=== PATIENT | female | born 1950 | race Caucasian/White ===

== ENCOUNTER → 2016-07-02 | Outpatient (CLI) | payer MEDICARE ==
[~2016-07-02] MED LIST: /AMLO25TA PO; /DIVA50TA PO; /LEVE75TA PO; /PANT40TA; /PANT40TA PO; /PRAV20TA PO; ALEN70TA39 PO; ATIV2TAB PO; ATOR1TAB19 PO; B COTAB3 PO; B-COMPLEX; CALC600T7 PO; CALCCHW12; CALCCHW19 PO; CENTTAB PO; CLOP75TA2 PO; COLA50CA3 PO; DEPA1TAB3 PO; DEPA250T3; DEPA500T; FLUT50SP; FLUTISP; FURO20TA2 PO; IBUP600T; KEPP1TAB2 PO; LEVO50TA5 PO; LIPI10TA; LIPI20TA PO; MECL-68 PO; Mycostatin TOP; NORV5TAB PO; NYAM10003 TOP; PRIL20CA; PROTPAK PO; RISP2TAB12; RISP3TAB16; RISP4TAB; RISP4TAB2 PO; RISP4TAB33 PO; SERO200T PO; SERT50TA2; SPECTROVITE; SYNT50TA; SYNT50TA PO; THERGRAN; TYLE650T30 PO; ZOLO50TA PO; [UNRECOGNIZED DRUG - OTHER] PO
--- NOTE | 2016-07-02 15:11 | REPMRS ---
Patient History The patient states she had a clinical breast exam in 06/2016. Patient is postmenopausal, has history of endometrial cancer at age 61, and is nulliparous. Family history of pancreatic cancer in mother. Digital Woman Screen Mammo: July 02, 2016 - Exam #: [id number] Bilateral CC and MLO view(s) were taken. Technologist: Lisa Hemphill Technologist Prior study comparison: May 02, 2015, digital woman screen mammo performed at [facility] to [facility]. December 18, 2013, digital woman screen mammo performed at [facility]. September 03, 2012, digital woman screen mammo performed at [facility] to [facility]. FINDINGS: There are scattered fibroglandular densities. There has been no change in the appearance of the mammogram from the prior studies. There is a mild amount of scattered fibroglandular density which is fairly symmetric. There is no interval development of dominant mass, architectural distortion, or clustered microcalcification suggestive of malignancy. ASSESSMENT: BI-RADS/ACR category 1 mammogram. Negative. Recommendation Routine screening mammogram in 1 year (for women over age 40). This mammogram was interpreted with the aid of an FDA-approved computer-aided dectection system. Electronically Signed By: Anand Poe MD 07/02/16 [id number]
--- NOTE | 2016-07-04 10:04 | DEXA ---
AP SPINE L1 - L4 0.936 -2.1 -1.4 LT FEMUR TOTAL 0.821 -1.5 -0.9 RT FEMUR TOTAL 0.928 -0.6 -0.1 TOTAL BODY TOTAL OTHER DUAL FEMUR FRAX* ASSESSMENT Risk factors: None. 10 year probability of fracture Major osteoporotic fracture 10.7 % Hip fracture 1.9 % COMMENTS: There is low bone density of the spine and hips. The density of the spine has decreased 5.2% since the initial exam on 2001. The spine density has decreased 6.7% since the most recent exam on 12/18/2013. The density of the left hip has decreased 5.6% since the initial exam on 2001. The density of the left hip has decreased 12.4% since the most recent exam on . The density of the right hip has decreased 3.4% since the initial exam on 2001. The density of the right hip has decreased 6.8% since the most recent exam on . FOLLOW-UP: Recommendation for the next bone density exam: 2 years. JAYSOND
== END ==
LOC: M WHC 13:00
PROVIDERS: ATTEND Nurse Practitioner Adult Health
DX: Z01.419 Encounter for gynecological examination (general) (routine) without abnormal findings (principal); Z12.31 Encounter for screening mammogram for malignant neoplasm of breast; Z13.820 Encounter for screening for osteoporosis; Z78.0 Asymptomatic menopausal state; Z12.12 Encounter for screening for malignant neoplasm of rectum; Z92.89 Personal history of other medical treatment; Z80.0 Family history of malignant neoplasm of digestive organs
CPT/HCPCS: 77080; 82270; 87624; G0101; G0123; G0202

== ENCOUNTER → 2016-07-02 | Outpatient (REF) | payer MEDICARE | LOC: M SFHCWAGY 13:58 | PROVIDERS: ATTEND Nurse Practitioner Family | DX: Z12.72 Encounter for screening for malignant neoplasm of vagina (principal); R87.620 Atypical squamous cells of undetermined significance on cytologic smear of vagina (ASC-US) | CPT/HCPCS: 87624; G0123 ==

== ENCOUNTER → 2017-01-08 | Outpatient (REF) | payer MEDICARE, MEDICAID | LOC: M SFHCWAGY 15:02 | PROVIDERS: ATTEND Nurse Practitioner Family | DX: Z12.72 Encounter for screening for malignant neoplasm of vagina (principal) | CPT/HCPCS: G0123; G0463 ==

== ENCOUNTER → 2017-03-07 | Outpatient (REF) | payer MEDICARE, MEDICAID | LOC: M LABNEURO 10:27 | PROVIDERS: ATTEND Physician Assistant Medical | DX: R56.9 Unspecified convulsions (principal); Z51.81 Encounter for therapeutic drug level monitoring; Z79.899 Other long term (current) drug therapy ==

== ENCOUNTER 2017-05-09 04:38 | Emergency (ER) | payer MEDICARE, MEDICAID ==
[~2017-05-09] VITALS: Ht 152.4 cm; Wt 95.5 kg
[2017-05-09] MEDS ORDERED: KETOROLAC 30 MG/ML VIAL (J1885) IV ONE (05:45)
[2017-05-09 06:34] LABS: BASO % 0.7 % (0.0-1.0); EOS # 0.1 10^3/uL (0.0-0.50); EOS % 1.2 % (0.0-3.0); IMMATURE GRANULOCYTE % 0.2 % (0-0); LYMPH # 1.4 10^3/uL (1.5-4.5); LYMPH % 33.8 % (24.0-44.0); MEAN CORPUSCULAR HEMOGLOBIN 30.6 pg (27.0-33.0); MEAN CORPUSCULAR HGB CONC 33.6 g/dl (32.0-36.5); MONO # 0.5 10^3/uL (0.0-0.8); MONO % 12.2 % (0.0-5.0); NEUTROPHILS # 2.2 10^3/uL (1.8-7.7); NEUTROPHILS % 51.9 % (36.0-66.0); PLATELET COUNT, AUTOMATED 173 10^3/uL (150-450); RED CELL DISTRIBUTION WIDTH 13.4 % (11.5-14.5); WHITE BLOOD COUNT 4.2 10^3/uL (4.0-10.0)
[2017-05-09 06:39] LABS: ALBUMIN 3.6 GM/DL (3.2-5.2); ALBUMIN/GLOBULIN RATIO 0.84 (1.00-1.93); ALKALINE PHOSPHATASE 63 U/L (45-117); ALT/SGPT 18 U/L (12-78); ANION GAP 8 MEQ/L (8-16); AST/SGOT 22 U/L (7-37); BILIRUBIN,DIRECT < 0.1 MG/DL (0.0-0.2); BILIRUBIN,TOTAL 0.3 MG/DL (0.2-1.0); BLOOD UREA NITROGEN 25 MG/DL (7-18); CALCIUM LEVEL 8.8 MG/DL (8.8-10.2); CARBON DIOXIDE LEVEL 32 MEQ/L (21-32); CHLORIDE LEVEL 101 MEQ/L (98-107); CREATININE FOR GFR 1.13 MG/DL (0.55-1.02); GLOMERULAR FILTRATION RATE 51.4 (>45); GLUCOSE, FASTING 82 MG/DL (80-110); POTASSIUM SERUM 3.8 MEQ/L (3.5-5.1); SODIUM LEVEL 141 MEQ/L (136-145); TOTAL PROTEIN 7.9 GM/DL (6.4-8.2)
[2017-05-09] MEDS ORDERED: ISOVUE-370 76% 100ML VIAL (Q9967) As Ordered ONE (08:09)
--- NOTE | 2017-05-09 09:00 | REP ---
CT of the abdomen pelvis with IV contrast, without bowel contrast: There are no comparisons. The visualized lung zimmer demonstrate fibrotic changes but are otherwise unremarkable. The hepatic parenchyma is homogeneous. There are several small gallbladder calculi. The gallbladder is otherwise unremarkable. The pancreas is normal size and unremarkable. The spleen is normal size and unremarkable. The adrenals are unremarkable. There is no hydronephrosis. There are no renal masses or cysts. The kidneys are otherwise unremarkable. No renal calculi. The abdominal aorta is unremarkable. There is no bowel distension or obstruction. The patient is a history of carcinoma and hysterectomy. There is no retroperitoneal or mesenteric adenopathy. There is no ascites. There is no evidence of tumor recurrence. Pelvis: There is no ascites or adenopathy. The pelvic bowel loops are unremarkable. The lumbar vertebral body heights and alignment are normal. There is intervertebral disc calcification at L1-2 and L4-5 compatible with degenerative disc disease. No lytic, blastic or destructive skeletal changes are identified. Impression: Cholelithiasis without acute cholecystitis. Lumbar degenerative disc disease as described. Hysterectomy. No evidence of tumor recurrence, adenopathy or ascites. Signed by Mamadou aCrd MD 05/09/2017 08:52 A
[2017-05-09 10:25] VITALS: BP 109/52
== END 2017-05-09 10:37 | disposition home or self-care (01) ==
LOC: M ED 04:38 → EDBD 04:38 → M ED 10:37
DX: K80.20 Calculus of gallbladder without cholecystitis without obstruction (principal); I10 Essential (primary) hypertension; K21.9 Gastro-esophageal reflux disease without esophagitis; F25.9 Schizoaffective disorder, unspecified; Z79.899 Other long term (current) drug therapy; Z88.2 Allergy status to sulfonamides; Z88.8 Allergy status to other drugs, medicaments and biological substances
CPT/HCPCS: 74177; 80048; 80076; 81001; 83690; 85025; 87040; 93041; 96374; 99284; J1885; Q9967

== ENCOUNTER → 2017-08-07 | Outpatient (REF) | payer MEDICARE, MEDICAID ==
[2017-08-11 00:09] LABS: LEVETIRACETAM (KEPPRA) 31.3 ug/mL (10.0-40.0)
== END ==
LOC: M LABNEURO 13:24
DX: R56.9 Unspecified convulsions (principal)
CPT/HCPCS: 36415

== ENCOUNTER → 2018-08-20 | Outpatient (REF) | payer MEDICARE, MEDICAID ==
[~2018-08-20] MED LIST changes: -ALEN70TA39 PO; +ALEN70TA57 PO
== END ==
LOC: M LABNEURO 13:50
PROVIDERS: ATTEND Physician Assistant Medical
DX: G40.89 Other seizures (principal)

== ENCOUNTER → 2019-01-16 | Outpatient (REF) | payer MEDICARE, MEDICAID ==
[~2019-01-16] MED LIST changes: -/AMLO25TA PO; -/DIVA50TA PO; -/LEVE75TA PO; -/PANT40TA; -/PANT40TA PO; -/PRAV20TA PO; +ACET-897 PO; -ALEN70TA57 PO; +ALEN70TA74 PO; +BENZ0.5T23 PO; +CALC500T44 PO; +CETI10TA4 PO; +DIVA500T9 PO; +FLUT1SPR2; -FLUTISP; +LEVA750T7 PO; +LEVE500T5 PO; +NORV2TAB PO; +POTA10CA32 PO; +PRAV1TAB39 PO; +PROT1TAB2; +PROT1TAB2 PO; +SERT-155 PO; +SYNT100T PO; +VITMTA PO
== END ==
LOC: M SFHCWAGY 14:48
PROVIDERS: ATTEND Nurse Practitioner Family
DX: Z12.4 Encounter for screening for malignant neoplasm of cervix (principal)

== ENCOUNTER → 2019-01-16 | Outpatient (CLI) | payer MEDICARE, MEDICAID ==
--- NOTE | 2019-01-16 15:27 | REPMRS ---
Patient History The patient states she had a clinical breast exam in 12/2018. Patient is postmenopausal, has history of endometrial cancer at age 61, and is nulliparous. Family history of pancreatic cancer in mother. No Hormone Replacement Therapy 3D TOMOSYNTHESIS WAS PERFORMED. The [facility] lifetime risk for breast cancer is 8.0%. Digital Woman Screen Mammo: January 16, 2019 - Exam #: [id number] Bilateral CC and MLO view(s) were taken. Technologist: Kimberley Covington, Technologist Prior study comparison: July 02, 2016, digital woman screen mammo performed at [facility]. May 02, 2015, digital woman screen mammo performed at [facility]. FINDINGS: There are scattered fibroglandular densities. There has been no change in the appearance of the mammogram from the prior studies. There is a mild amount of residual fibroglandular tissue which is fairly symmetric. There is no interval development of dominant mass, architectural distortion, or clustered microcalcification suggestive of malignancy. Assessment: BI-RADS/ACR category 1 mammogram. Negative Mammogram. Recommendation Routine screening mammogram in 1 year (for women over age 40). This mammogram was interpreted with the aid of an FDA-approved computer-aided dectection system. Electronically Signed By: Mamadou Jett MD 01/16/19 2211
== END ==
LOC: M WHC 13:54
PROVIDERS: ATTEND Nurse Practitioner Family
DX: Z01.419 Encounter for gynecological examination (general) (routine) without abnormal findings (principal); Z12.31 Encounter for screening mammogram for malignant neoplasm of breast; Z78.0 Asymptomatic menopausal state; Z85.40 Personal history of malignant neoplasm of unspecified female genital organ; Z80.0 Family history of malignant neoplasm of digestive organs; Z12.12 Encounter for screening for malignant neoplasm of rectum
CPT/HCPCS: 77063; 77067; 82270; G0101; G0123

== ENCOUNTER 2019-01-21 22:05 | Inpatient (IN) | payer MEDICARE, MEDICAID ==
[~2019-01-21] VITALS: Ht 152.4 cm; Wt 91.5 kg
[~2019-01-21 22:05] MED LIST changes: -ACET-897 PO; -BENZ0.5T23 PO; -CALC500T44 PO; -CETI10TA4 PO; -DIVA500T9 PO; -LEVA750T7 PO; -LEVE500T5 PO; -POTA10CA32 PO; -SERT-155 PO; -SYNT100T PO; -VITMTA PO
[2019-01-21] MEDS ORDERED: NS 1,000 ML IV ONE (22:30)
[2019-01-21] MEDS ORDERED: ACETAMINOPHEN 325 MG TAB PO ONE (22:30)
[2019-01-21 22:31] LABS: BASO % 0.4 % (0.0-1.0); HEMATOCRIT 40.9 % (36.0-47.0); HEMOGLOBIN 13.7 g/dl (12.0-15.5); LYMPH # 0.3 10^3/uL (1.5-4.5); LYMPH % 3.2 % (24.0-44.0); MEAN CORPUSCULAR HEMOGLOBIN 30.6 pg (27.0-33.0); MEAN CORPUSCULAR HGB CONC 33.5 g/dl (32.0-36.5); MEAN CORPUSCULAR VOLUME 91.3 fl (80.0-96.0); NEUTROPHILS # 8.6 10^3/uL (1.8-7.7); NEUTROPHILS % 85.9 % (36.0-66.0); PLATELET COUNT, AUTOMATED 204 10^3/uL (150-450); RED BLOOD COUNT 4.48 10^6/uL (4.00-5.40)
[2019-01-21 22:53] LABS: ALBUMIN 3.5 GM/DL (3.2-5.2); BILIRUBIN,DIRECT 0.2 MG/DL (0.0-0.2); BILIRUBIN,TOTAL 0.5 MG/DL (0.2-1.0); CREATININE FOR GFR 1.79 MG/DL (0.55-1.30); GLOMERULAR FILTRATION RATE 30.1 (>45); POTASSIUM SERUM 3.4 MEQ/L (3.5-5.1); TOTAL PROTEIN 8.3 GM/DL (6.4-8.2)
[2019-01-21] MEDS ORDERED: CIPROFLOXACIN 400 MG in APPROPRIATE DILUENT 1 EA IV ONE (23:15)
[2019-01-22] MEDS ORDERED: CALC500T44 PO (00:04)
[2019-01-22] MEDS ORDERED: SERT-155 PO (00:04)
[2019-01-22] MEDS ORDERED: LEVE500T5 PO (00:04)
[2019-01-22] MEDS ORDERED: DIVA500T9 PO (00:04)
[2019-01-22] MEDS ORDERED: VITMTA PO (00:04)
[2019-01-22] MEDS ORDERED: ACET-897 PO (00:04)
[2019-01-22] MEDS ORDERED: BENZ0.5T23 PO (00:04)
[2019-01-22] MEDS ORDERED: MECL-68 PO (00:04)
[2019-01-22] MEDS ORDERED: POTA10CA32 PO (00:04)
[2019-01-22] MEDS ORDERED: SYNT100T PO (00:04)
[2019-01-22] MEDS ORDERED: PROT1TAB2 PO (00:04)
[2019-01-22] MEDS ORDERED: CETI10TA4 PO (00:04)
[2019-01-22] MEDS ORDERED: KCL 40MEQ in NS 1000ML 1,000 ML IV SCH (00:30)
[2019-01-22] MEDS ORDERED: ACETAMINOPHEN 500 MG TAB PO PRN (00:30)
--- NOTE | 2019-01-22 00:42 | HPEPDOC ---
General Date of Admission 01/21/19 Date of Service: Jan 21, 2019 Chief Complaint The patient is a 68-year-old female admitted with a reason for visit of General Medical Complaint. Source: Patient, RN/MD, Old records Exam Limitations: No limitations Severity: Moderate History of Present Illness 68 year old female called the ambulance by pressing her life alert for lift assist. She was found half out of bed was diaphoretic and warm to touch by EMS but her recorded temp was 97.5. She complained of extreme generalized weakness and dizziness for 3 to 4 days, poor appetite, subjective fevers with feeling hot and shaking intermittently. She also complained of urinary incontinence however this is not new it happens on and off has been worse last few days along with frequency of urination. She denied any dysuria. On presentation to ED she oshea a rectal temp of 103.5. her Ua was dirty with 51 WBCs, 2+ LE. Her creatinine was elevated from baseline of 1.13 to 1.79. Her lactate was elevated to 2.3. She was admitted for UTI and lucio on ckd stage 3 Home Medications Scheduled Amlodipine Besylate (Norvasc) 5 Mg Tab, 5 MG PO DAILY, (Reported) Atorvastatin Calcium (Atorvastatin Calcium) 10 Mg Tab, 10 MG PO DAILY, (Reported) Benztropine Mesylate (Benztropine Mesylate) 0.5 Mg Tablet, 0.5 MG PO DAILY, (Reported) Calcium Carbonate/Vitamin D3 (Calcium 500-Vit D3 200 Tablet) 1 Each Tablet, 1 TAB PO DAILY, (Reported) Cetirizine HCl (Cetirizine HCl) 10 Mg Tablet, 10 MG PO QHS, (Reported) Divalproex Sodium (Divalproex Sodium ER) 500 Mg Tab.er.24h, 1,000 MG PO DAILY, (Reported) Furosemide (Furosemide) 20 Mg Tab, 20 MG PO BID, (Reported) TAKES IN MORNING AND AT NOON Levothyroxine Sodium (Synthroid) 100 Mcg Tablet, 100 MCG PO DAILY, (Reported) TAKES AT 0300 Multivitamins (Thera M Plus Tablet) 1 Each Tablet, 1 TAB PO DAILY, (Reported) Pantoprazole Sodium (Protonix) 40 Mg Tablet.dr, 40 MG PO DAILY, (Reported) Potassium Chloride (Potassium Chloride) 10 Meq Capsule.er, 10 MEQ PO DAILY, (Reported) Risperidone (Risperidone) 4 Mg Tab, 4 MG PO QHS, (Reported) Sertraline HCl (Sertraline HCl) 50 Mg Tablet, 50 MG PO DAILY, (Reported) levETIRAcetam (levETIRAcetam) 500 Mg Tablet, 500 MG PO BID, (Reported) Scheduled PRN Acetaminophen (Tylenol Extra Strength) 500 Mg Tablet, 500 MG PO BID PRN for PAIN, (Reported) Meclizine HCl (Meclizine HCl) 25 Mg Tablet, 25 MG PO TID PRN for DIZZINESS, (Reported) Allergies Coded Allergies: Sulfa (Sulfonamide Antibiotics) (Verified Allergy, Unknown, 01/21/19) aspirin (Verified Allergy, Unknown, 01/21/19) Past Medical History Medical History Morbid Obesity Schizoaffective disorder HYPERTENSION POST-TRAUMATIC STRESS DISORDER HYPOTHYROIDISM HYPERLIPIDEMIA ADENOCARCINOMA ENDOMETRIUM, GRADE I, 2010 SEIZURE DISORDER URINARY INCONTINENCE PEPTIC ULCER DISEASE DUODENAL ULCER AND GASTRIC ULCER. Surgical History THUMB SURGERY S/P laparotoy for GASTRIC ULCER perforation 1989 KESHAWN/BSO FOR ENDOMETRIAL CANCER ([facility]) 2010 EMB/ECC WITH DR. GONZALEZ 2009 COLONOSCOPY 2002 CLEFT PALATE REPAIR AGE 1 1/2 Family History MATERNAL AUNT: , PANCREAS CANCER PT IS NOT A RELIABLE HISTORIAN AND CANNOT GIVE ANY FURTHER FAMILY HISTORY.PT WAS ADOPTED BY MATERNAL AUNT. Social History * Smoker: non-smoker Alcohol: Denies Drugs: denies A-FIB/CHADSVASC A-FIB History Current/History of A-Fib/PAF?: No Review of Systems Constitutional: Reports: Chills, Fever, Malaise, Weakness, Fatigue Eyes: Denies: Pain, Vision change ENT: Denies: Head Aches, Ear Pain, Dysphagia Skin: Denies: Rash, Lesions, Breakdown Pulmonary: Denies: Dyspnea, Cough Cardiovascular: Denies: Chest Pain, Palpitations, Orthopnea, Paroxysmal Noc. Dyspnea, Lt Headedness Gastrointestinal: Denies: Nausea, Vomiting, Abdominal Pain, Diarrhea Genitourinary: Reports: Frequency, Incontinence Hematologic: Denies: Bruising, Bleeding Excessively Musculoskeletal: Denies: Neck Pain, Back Pain, Joint Pain, Muscle Pain, Spasms Neurological: Reports: Weakness Physical Examination General Exam: Positive: Alert, Cooperative, No Acute Distress Eye Exam: Positive: PERRLA, Conjunctiva & lids normal, EOMI; Negative: Sclera icteric ENT Exam: Positive: Atraumatic, Mucous membr. moist/pink, Pharynx Normal Chest Exam: Positive: Clear to auscultation, Normal air movement Heart Exam: Positive: Tachycardic, Regular Rhythm; Negative: Normal S1, Normal S2, Gallops, Murmurs Abdomen Exam: Positive: Normal bowel sounds, Soft, Tenderness (in the hypogastrium); Negative: Hepatospenomegaly Extremity Exam: Positive: Normal pulses; Negative: Clubbing, Cyanosis, Edema Skin Exam: Positive: Nl turgor and temperature; Negative: Breakdown, Lesion Psych Exam: Positive: Mental status NL, Mood NL, Oriented x 3 Vital Signs Vital Signs Date Time Temp Pulse Resp B/P (MAP) Pulse Ox O2 Delivery O2 Flow Rate FiO2 01/21/19 23:21 101.2 01/21/19 23:05 89 20 97 Nasal Cannula 2.0 01/21/19 23:00 103/52 (69) Laboratory Data Labs 24H Laboratory Tests 2 01/21/19 22:20: Immature Granulocyte % (Auto) 0.5, White Blood Count 10.0, Red Blood Count 4.48, Hemoglobin 13.7, Hematocrit 40.9, Mean Corpuscular Volume 91.3, Mean Corpuscular Hemoglobin 30.6, Mean Corpuscular Hemoglobin Concent 33.5, Red Cell Distribution Width 14.2, Platelet Count 204, Neutrophils (%) (Auto) 85.9H, Lymphocytes (%) (Auto) 3.2L, Monocytes (%) (Auto) 10.0H, Eosinophils (%) (Auto) 0.0, Basophils (%) (Auto) 0.4, Neutrophils # (Auto) 8.6H, Lymphocytes # (Auto) 0.3L, Monocytes # (Auto) 1.0H, Eosinophils # (Auto) 0.0, Basophils # (Auto) 0.0, Nucleated Red Blood Cells % (auto) 0.0, Anion Gap 9, Glomerular Filtration Rate 30.1L, Lactic Acid Level 2.3*H, Calcium Level 9.0, Aspartate Amino Transf (AST/SGOT) 26, Ala nine Aminotransferase (ALT/SGPT) 18, Alkaline Phosphatase 84, Total Bilirubin 0.5, Direct Bilirubin 0.2, Total Protein 8.3H, Albumin 3.5, Albumin/Globulin Ratio 0.73L 01/21/19 22:44: Urine Color YELLOW, Urine Appearance CLEAR, Urine pH 6.0, Urine Specific [place] 1.008, Urine Protein 3+H, Urine Glucose (UA) NEGATIVE, Urine Ketones NEGATIVE, Urine Blood 2+H, Urine Nitrite NEGATIVE, Urine Bilirubin NEGATIVE, Urine Urobilinogen 0.2, Urine Leukocyte Esterase 2+H, Urine WBC (Auto) 51H, Urine RBC (Auto) 9H, Urine Hyaline Casts (Auto) 0, Urine Bacteria (Auto) 1+H, Urine Squamous Epithelial Cells 0, Urine Mucus (Auto) SMALL, Urine Sperm (Auto) CBC/BMP Laboratory Tests 01/21/19 22:20 Red Blood Count 4.48, Mean Corpuscular Volume 91.3, Mean Corpuscular Hemoglobin 30.6, Mean Corpuscular Hemoglobin Concent 33.5, Red Cell Distribution Width 14.2, Neutrophils (%) (Auto) 85.9 H, Lymphocytes (%) (Auto) 3.2 L, Monocytes (%) (Auto) 10.0 H, Eosinophils (%) (Auto) 0.0, Basophils (%) (Auto) 0.4, Neutrophils # (Auto) 8.6 H, Lymphocytes # (Auto) 0.3 L, Monocytes # (Auto) 1.0 H, Eosinophils # (Auto) 0.0, Basophils # (Auto) 0.0 Microbiology Microbiology 01/21/19 Blood Culture, Received Pending 01/21/19 Urine Culture, Received Pending Assessment/Plan 68 year old female called the ambulance by pressing her life alert for lift assist. She was found half out of bed was diaphoretic and warm to touch by EMS but her recorded temp was 97.5. She complained of extreme generalized weakness and dizziness for 3 to 4 days with urinary incontinence and frequency. Her creatinine was elevated from baseline of 1.13 to 1.79. Her lactate was elevated to 2.3. She was admitted for UTI and lucio on ckd stage 3 UTI will give ceftriaxone urine culture and blood culture sent LUCIO on CKD possibly due to infection will get renal and bladder US to rule out obstruction will give IVF. Hypertension BP low normal continue amlodipine with hold parameters will hold lasix for now Hyperlipidemia continue statin hypothyroid continue Synthroid Seizure disorder continue keppra and valproate Morbid Obesity Schizoaffective disorder/PTSD continue benztropine, risperidal, seroquel, Peptic ulcer disease continue PPI Plan / VTE VTE Prophylaxis Ordered?: Yes NATHAN BROOKE MD Jan 21, 2019 23:34
[2019-01-22] MEDS: cefTRIAXone SOD 1 GM in D5W MINI-BAG PLUS 50 ML IV SCH (01:34)
[2019-01-22 03:05] LABS: BASO % 0.4 % (0.0-1.0); HEMATOCRIT 35.5 % (36.0-47.0); HEMOGLOBIN 11.9 g/dl (12.0-15.5); LYMPH # 0.3 10^3/uL (1.5-4.5); LYMPH % 3.2 % (24.0-44.0); MEAN CORPUSCULAR HGB CONC 33.5 g/dl (32.0-36.5); MEAN CORPUSCULAR VOLUME 92.4 fl (80.0-96.0); MONO # 0.6 10^3/uL (0.0-0.8); MONO % 5.3 % (0.0-5.0); NEUTROPHILS # 9.3 10^3/uL (1.8-7.7); NEUTROPHILS % 90.5 % (36.0-66.0); PLATELET COUNT, AUTOMATED 179 10^3/uL (150-450); RED BLOOD COUNT 3.84 10^6/uL (4.00-5.40); WHITE BLOOD COUNT 10.3 10^3/uL (4.0-10.0)
[2019-01-22 03:27] LABS: CREATININE FOR GFR 1.6 MG/DL (0.55-1.30); GLOMERULAR FILTRATION RATE 34.2 (>45); POTASSIUM SERUM 3.6 MEQ/L (3.5-5.1); VALPROIC ACID (DEPAKOTE) 59.3 UG/ML (50.0-100.0)
[2019-01-22 04:30] VITALS: BP 143/69
[2019-01-22] MEDS: LEVOTHYROXINE 100MCG TABLET (0.1MG) PO SCH (06:16)
--- NOTE | 2019-01-22 07:22 | REP ---
Clinical: Systemic inflammatory response syndrome . Comparison: 05/20/2014 . Findings: The mediastinum and cardiac silhouette are stable and within normal limits for portable technique. The lung zimmer are clear without acute consolidation, effusion, or pneumothorax. Skeletal structures are intact. Impression: No acute cardiopulmonary process appreciated. Electronically Signed by Nimesh Lu MD 01/22/2019 07:12 A
--- NOTE | 2019-01-22 08:31 | REP ---
Renal ultrasound: Comparison is 05/28/2012. The kidneys are in the low normal size range. The right kidney measures 9.8 x 4.6 x 3.9 cm. The left kidney measures 9.8 x 4.6 x 4.1 cm. Renal cortical echogenicity is normal bilaterally. There is no hydronephrosis on the right on the left. There are no renal calculi. There are no solid or cystic renal masses. Impression: The kidneys are in the low normal size range. Otherwise, negative renal ultrasound Electronically Signed by Mamadou Card MD 01/22/2019 08:23 A
--- NOTE | 2019-01-22 08:33 | REP ---
Ultrasound: With color Doppler ultrasound. There are bilateral ureteral jets. The pre void bladder volume is 659 ml. The patient is unable to void and spot tenting several times. Therefore postvoid residual cannot be determined. No bladder wall polyps or masses are identified. Electronically Signed by Mamadou Card MD 01/22/2019 08:25 A
[2019-01-22] MEDS: PANTOPRAZOLE 40MG TAB (PROTONIX) PO SCH (09:10)
[2019-01-22] MEDS: levETIRAcetam 250MG TABLET (KEPPRA) PO SCH ×2 (09:10→20:35)
[2019-01-22] MEDS: SERTRALINE HCL 50 MG TAB PO SCH (09:10)
[2019-01-22] MEDS: amLODIPine 5 MG TAB PO SCH (09:10)
[2019-01-22] MEDS: ATORVASTATIN 10 MG TAB PO SCH (09:11)
[2019-01-22] MEDS: BENZTROPINE 0.5 MG TAB PO SCH (09:11)
[2019-01-22] MEDS: DIVALPROEX 500MG *ER* TAB PO SCH (09:11)
[2019-01-22] MEDS ORDERED: DILUENT IV ONE (10:45)
[2019-01-22] MEDS ORDERED: NS IV ONE (10:45)
[2019-01-22] MEDS: HEPARIN SOD (PORCINE) 5000 UNITS/ML VIAL SC SCH ×2 (11:01→20:34)
--- NOTE | 2019-01-22 12:16 | IPNPDOC ---
Text Note Date of Service The patient was seen on 01/22/19. NOTE S: patient had episode of rigor/chills and low grade temp this AM. Still with dysuria, no N, no V, no back pain, no SHULTZ O: Vitals as below General: pleasant , mild distress, AAOx3 HRRR with murmur LCTA no W/R/R Abdomen soft NT ND NABS, no CVA tenderness Ext: no edema; right hallux laterally with bruising (pateint states kicked cat litter box and injured toe last week) A/P: UTI with possible sepsis (hypotension, fever, lactic acid IV ceftriaxone, IV fluid sepsis protocol, urine culture and blood culture sent LUCIO on CKD - slight improving probably due to infection renal and bladder US negative Continue IVF lactic acidosis - suspected sepsis but may also be medication related. IVF per sepsis protocol and repeat lactate level in 6 hours Hold respiradol if temp greater than 100 to avoid neuroleptic malignant syndrome Hypertension with hypotension - intial hypotension resolved. continue with amlodipine , hold lasix. Heart murmur - pateint states present since age 11 - will check cardiac echo to r/o vegitations inlight of fever, sepsis Hyperlipidemia continue statin hypothyroid continue synthroid Seizure disorder continue keppra and valproate; seizure precautions Schizoaffective disorder/PTSD - continue benztropine, risperidal, seroquel, history of PUD - continue PPI VS,Fishbone, I+O VS, Fishbone, I+O Laboratory Tests 01/21/19 22:20 Red Blood Count 4.48, Mean Corpuscular Volume 91.3, Mean Corpuscular Hemoglobin 30.6, Mean Corpuscular Hemoglobin Concent 33.5, Red Cell Distribution Width 14.2, Neutrophils (%) (Auto) 85.9 H, Lymphocytes (%) (Auto) 3.2 L, Monocytes (%) (Auto) 10.0 H, Eosinophils (%) (Auto) 0.0, Basophils (%) (Auto) 0.4, Neutrophils # (Auto) 8.6 H, Lymphocytes # (Auto) 0.3 L, Monocytes # (Auto) 1.0 H, Eosinophils # (Auto) 0.0, Basophils # (Auto) 0.0 01/22/19 02:58 Red Blood Count 3.84 L, Mean Corpuscular Volume 92.4, Mean Corpuscular Hemogl obin 31.0, Mean Corpuscular Hemoglobin Concent 33.5, Red Cell Distribution Width 14.2, Neutrophils (%) (Auto) 90.5 H, Lymphocytes (%) (Auto) 3.2 L, Monocytes (%) (Auto) 5.3 H, Eosinophils (%) (Auto) 0.0, Basophils (%) (Auto) 0.4, Neutrophils # (Auto) 9.3 H, Lymphocytes # (Auto) 0.3 L, Monocytes # (Auto) 0.6, Eosinophils # (Auto) 0.0, Basophils # (Auto) 0.0, Calcium Level 8.0 L Vital Signs Date Time Temp Pulse Resp B/P (MAP) Pulse Ox O2 Delivery O2 Flow Rate FiO2 01/22/19 09:10 82 143/69 01/22/19 04:30 97.1 20 92 01/22/19 03:15 Nasal Cannula 2.0 I&O- Last 24 Hours up to 6 AM 01/22/19 06:00 Intake Total 1707.5 ml Output Total 0 ml Balance 1707.5 ml BLANCA LOPEZ DO Jan 22, 2019 12:16
[2019-01-22] MEDS: NS 1,000 ML IV SCH ×2 (13:00→20:35)
[2019-01-22 14:00] VITALS: BP 134/57
[2019-01-22] MEDS: risperiDONE 2 MG TAB PO SCH (20:35)
--- NOTE | 2019-01-22 21:18 | ECGEPIP ---
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
[2019-01-22 21:38] VITALS: BP 134/59
[2019-01-23] MEDS: cefTRIAXone SOD 1 GM in D5W MINI-BAG PLUS 50 ML IV SCH (02:01)
[2019-01-23] MEDS: NS 1,000 ML IV SCH ×3 (04:00→20:00)
[2019-01-23] MEDS: LEVOTHYROXINE 100MCG TABLET (0.1MG) PO SCH (05:44)
[2019-01-23 06:07] LABS: BASO % 0.4 % (0.0-1.0); EOS % 0.3 % (0.0-3.0); HEMATOCRIT 31.4 % (36.0-47.0); HEMOGLOBIN 10.2 g/dl (12.0-15.5); LYMPH # 0.8 10^3/uL (1.5-4.5); LYMPH % 10.6 % (24.0-44.0); MEAN CORPUSCULAR HEMOGLOBIN 30.9 pg (27.0-33.0); MEAN CORPUSCULAR HGB CONC 32.5 g/dl (32.0-36.5); MEAN CORPUSCULAR VOLUME 95.2 fl (80.0-96.0); MONO # 0.9 10^3/uL (0.0-0.8); MONO % 13.2 % (0.0-5.0); NEUTROPHILS # 5.4 10^3/uL (1.8-7.7); NEUTROPHILS % 74.9 % (36.0-66.0); WHITE BLOOD COUNT 7.1 10^3/uL (4.0-10.0)
[2019-01-23 06:10] VITALS: BP 122/56
[2019-01-23 06:21] LABS: CALCIUM LEVEL 7.3 MG/DL (8.8-10.2); CREATININE FOR GFR 1.07 MG/DL (0.55-1.30); GLOMERULAR FILTRATION RATE 54.5 (>45); POTASSIUM SERUM 3.7 MEQ/L (3.5-5.1)
[2019-01-23 09:06] LABS: PLTBLUE- EDTA FREE CALC 135 K/mm3 (172-450)
[2019-01-23 09:27] LABS: PLTBLUE- EDTA FREE MACHINE 123 10^3/uL (172-450)
[2019-01-23] MEDS: levETIRAcetam 250MG TABLET (KEPPRA) PO SCH ×2 (09:33→20:58)
[2019-01-23] MEDS: ATORVASTATIN 10 MG TAB PO SCH (09:33)
[2019-01-23] MEDS: HEPARIN SOD (PORCINE) 5000 UNITS/ML VIAL SC SCH ×2 (09:33→20:58)
[2019-01-23] MEDS: BENZTROPINE 0.5 MG TAB PO SCH (09:34)
[2019-01-23] MEDS: SERTRALINE HCL 50 MG TAB PO SCH (09:34)
[2019-01-23] MEDS: PANTOPRAZOLE 40MG TAB (PROTONIX) PO SCH (09:34)
[2019-01-23] MEDS: amLODIPine 5 MG TAB PO SCH (09:34)
[2019-01-23] MEDS: DIVALPROEX 500MG *ER* TAB PO SCH (11:01)
[2019-01-23 14:00] VITALS: BP 139/68
--- NOTE | 2019-01-23 15:04 | IPNPDOC ---
Text Note Date of Service The patient was seen on 01/23/19. NOTE S: patient with fever spikes during night and this AM. Echo pending this AM. States feels better today. no further dysuria, urgency . no chills or rigors. good appetite. O: Vital as below General: pleasant NAD AAOx3 HRRR with murmur, no rub, no S3/no S4 LCTA - no CVA tenderness Abdomen soft nt nd nabs ext no edema A/P: Gram Neg Brigido bacteremia - on rocephin, echo pending. suspected source is UTI; completed IV fluid sepsis bolus. Will finish current IVF bag and saline lock. use PRN fluid bolus if hypotension from bacteremia Sepsis with lactic acidosis from UTI - improved. LUCIO due to hypotension, sepsis - resolved with IVF. Hypertension with hypotension - intial hypotension resolved from sepsis. continue with amlodipine , hold lasix. Heart murmur - pateint states present since age 11 - will check cardiac echo to r/o vegetations in light of fever, sepsis Hyperlipidemia continue statin hypothyroid continue synthroid Seizure disorder continue keppra and valproate; seizure precautions Schizoaffective disorder/PTSD - continue benztropine, risperidal, seroquel, ; hold risperidal with fevers. history of PUD - continue PPI Case management consulted - patient concerned about not being home to pay/send in her rent on 01/25 . VS,Fishbone, I+O VS, Fishbone, I+O Laboratory Tests 01/23/19 05:39 Red Blood Count 3.30 L, Mean Corpuscular Volume 95.2, Mean Corpuscular Hemoglobin 30.9, Mean Corpuscular Hemoglobin Concent 32.5, Red Cell Distribution Width 14.6 H, Neutrophils (%) (Auto) 74.9 H, Lymphocytes (%) (Auto) 10.6 L, Monocytes (%) (Auto) 13.2 H, Eosinophils (%) (Auto) 0.3, Basophils (%) (Auto) 0.4, Neutrophils # (Auto) 5.4, Lymphocytes # (Auto) 0.8 L, Monocytes # (Auto) 0.9 H, Eosinophils # (Auto) 0.0, Basophils # (Auto) 0.0, Calcium Level 7.3 L Vital Signs Date Time Temp Pulse Resp B/P (MAP) Pulse Ox O2 Delivery O2 Flow Rate FiO2 01/23/19 06:56 100.8 01/23/19 06:10 87 18 122/56 (78) 94 01/22/19 03:15 Nasal Cannula 2.0 I&O- Last 24 Hours up to 6 AM 01/23/19 06:00 Intake Total 4300 ml Balance 4300 ml BLANCA LOPEZ DO Jan 23, 2019 07:46
--- NOTE | 2019-01-23 19:01 | ECHO ---
DATE OF PROCEDURE: 01/23/2019 DATE OF : 1950 AGE: 68 GENDER: Female HEIGHT: 60 inches WEIGHT: 202 pounds BODY SURFACE AREA: 1.82 meters squared INPATIENT: Moisés Ferro, Room 5137 REFERRING PHYSICIAN: Dr. Carol Segovia INDICATION: Murmur MEASUREMENTS: 2D Measurements: RV: 4.4 cm LV: 3.6 cm Septum: 0.9 cm Posterior wall: 0.9 cm Aortic root: 2.6 cm LA: 3.4 cm LVEF: 65% DOPPLER MEASUREMENTS: AV: 1.5 meters per second LVOT: 1.0 meters per second LVOT diameter: 1.6 cm MV-E: 96, A: 107, EA ratio: 0.9 Early mitral deceleration time: 194 milliseconds E prime: 9.1, A prime: 10.2, E/E prime ratio: 10.5 Pulmonary capillary wedge pressure: 13.6 mmHg PV: 0.9 meters per second Pulmonary artery acceleration time: 85 milliseconds RVSP: 57 mmHg IVC: 2.1 cm COMMENT: Normal sinus rhythm without intraventricular conduction disturbance. M-mode and two-dimensional echocardiography was performed with pulsed, continuous wave, color flow and tissue Doppler studies. Normal left ventricular size and wall thickness with localized proximal septal wall motion abnormality in keeping with RV pressure overload yet preserved global resting left ventricular systolic function. Normal left atrial size with Doppler evidence of an impairment of left ventricular (LV) diastolic function but current estimated mean left atrial pressure upper limits of normal. At least mildly dilated right heart chambers with slightly reduced right ventricular free wall motion and Doppler evidence of at least moderately severe pulmonary hypertension. Slightly dilated inferior vena cava with reduced respiratory collapse in keeping with an elevated central venous pressure. Mild aortic valvular sclerosis without stenosis or insufficiency. Mildly thickened mitral annulus with adequate leaflet excursion and no posterior systolic buckling and only very mild insufficiency. Normal appearing tricuspid valve with moderate insufficiency. Normal aortic root size. No apparent intracardiac mass or pericardial effusion. MTDD
[2019-01-23 20:08] VITALS: BP 140/68
[2019-01-24] MEDS: cefTRIAXone SOD 1 GM in D5W MINI-BAG PLUS 50 ML IV SCH (02:07)
[2019-01-24 05:51] LABS: BASO % 0.5 % (0.0-1.0); EOS % 0.5 % (0.0-3.0); HEMATOCRIT 30.6 % (36.0-47.0); HEMOGLOBIN 10.1 g/dl (12.0-15.5); LYMPH % 16.3 % (24.0-44.0); MEAN CORPUSCULAR VOLUME 90.8 fl (80.0-96.0); MONO % 15.6 % (0.0-5.0); NEUTROPHILS # 4.1 10^3/uL (1.8-7.7); NEUTROPHILS % 66.1 % (36.0-66.0); PLATELET COUNT, AUTOMATED 164 10^3/uL (150-450); RED BLOOD COUNT 3.37 10^6/uL (4.00-5.40); WHITE BLOOD COUNT 6.2 10^3/uL (4.0-10.0)
[2019-01-24] MEDS: LEVOTHYROXINE 100MCG TABLET (0.1MG) PO SCH (05:55)
[2019-01-24 06:11] LABS: CALCIUM LEVEL 8.2 MG/DL (8.8-10.2); CREATININE FOR GFR 1.03 MG/DL (0.55-1.30); GLOMERULAR FILTRATION RATE 56.9 (>45); POTASSIUM SERUM 3.6 MEQ/L (3.5-5.1)
[2019-01-24 06:34] VITALS: BP 101/60
[2019-01-24] MEDS: levETIRAcetam 250MG TABLET (KEPPRA) PO SCH ×2 (08:06→20:36)
[2019-01-24] MEDS: ATORVASTATIN 10 MG TAB PO SCH (08:06)
[2019-01-24] MEDS: SERTRALINE HCL 50 MG TAB PO SCH (08:06)
[2019-01-24] MEDS: HEPARIN SOD (PORCINE) 5000 UNITS/ML VIAL SC SCH ×2 (08:07→20:36)
[2019-01-24] MEDS: BENZTROPINE 0.5 MG TAB PO SCH (08:07)
[2019-01-24] MEDS: PANTOPRAZOLE 40MG TAB (PROTONIX) PO SCH (08:08)
[2019-01-24] MEDS: DIVALPROEX 500MG *ER* TAB PO SCH ×2 (08:08→09:00)
[2019-01-24] MEDS: amLODIPine 5 MG TAB PO SCH (08:11)
--- NOTE | 2019-01-24 09:04 | IPNPDOC ---
Text Note Date of Service The patient was seen on 01/24/19. NOTE S: patient continues to have low grade temperatures (100.1 this AM). States no more rigors, chills. no nausea, no vomiting. feels better. having difficulty swallowing large depakote ER pills. no dysuria/frequency. has been ambulating with staff O: Vitals as below General: pleasant NAD AAOx3, sitting in chair eating breakfast HRRR with murmur LCTA no W/R/R Echo with no signs vegetations A/P: E COLI UTI with bacteremia -will change rocephin to levaquin (q48 hours based on creat Clear) intially IV then when no longer febrile for 24 hours , then change to PO. Will need 7 days after last negative blood cultures (01/22/19) for antibiotic treatment. Sepsis with lactic acidosis from E Coli UTI and E Coli bacteremia - resolved. LUCIO due to hypotension, sepsis - resolved with IVF. Hypertension with hypotension - intial hypotension resolved from sepsis. continue with amlodipine , hold lasix. Hyperlipidemia continue statin hypothyroid continue synthroid Seizure disorder continue keppra and valproate; seizure precautions - change depakote ER to sprinkles Schizoaffective disorder/PTSD - continue benztropine, risperidal, seroquel, ; hold risperidal with fevers. history of PUD - continue PPI VS,Fishbone, I+O VS, Fishbone, I+O Laboratory Tests 01/24/19 05:26 Red Blood Count 3.37 L, Mean Corpuscular Volume 90.8, Mean Corpuscular Hemoglobin 30.0, Mean Corpuscular Hemoglobin Concent 33.0, Red Cell Distribution Width 14.7 H, Neutrophils (%) (Auto) 66.1 H, Lymphocytes (%) (Auto) 16.3 L, Monocytes (%) (Auto) 15.6 H, Eosinophils (%) (Auto) 0.5, Basophils (%) (Auto) 0.5, Neutrophils # (Auto) 4.1, Lymphocytes # (Auto) 1.0 L, Monocytes # (Auto) 1.0 H, Eosinophils # (Auto) 0.0, Basophils # (Auto) 0.0, Calcium Level 8.2 L Vital Signs Date Time Temp Pulse Resp B/P (MAP) Pulse Ox O2 Delivery O2 Flow Rate FiO2 01/24/19 06:34 100.1 83 18 101/60 (74) 89 01/22/19 03:15 Nasal Cannula 2.0 I&O- Last 24 Hours up to 6 AM 01/24/19 06:00 Intake Total 3080 ml Balance 3080 ml BLANCA LOPEZ DO Jan 24, 2019 07:58
[2019-01-24] MEDS ORDERED: LevoFLOXacin IV 750 MG in APPROPRIATE DILUENT 1 EA IV SCH (10:00)
[2019-01-24] MEDS: DIVALPROEX SPRINKLE 125 MG CAP PO SCH ×2 (11:00→20:37)
[2019-01-24 14:00] VITALS: BP 130/69
[2019-01-24] MEDS: risperiDONE 2 MG TAB PO SCH (20:53)
[2019-01-24 22:00] VITALS: BP 136/70
[2019-01-25 06:00] VITALS: BP 131/65
[2019-01-25] MEDS: LEVOTHYROXINE 100MCG TABLET (0.1MG) PO SCH (06:48)
[2019-01-25 07:21] LABS: BASO % 0.5 % (0.0-1.0); EOS # 0.1 10^3/uL (0.0-0.5); HEMATOCRIT 30.7 % (36.0-47.0); HEMOGLOBIN 10.1 g/dl (12.0-15.5); LYMPH # 1.3 10^3/uL (1.5-5.0); LYMPH % 21.2 % (24.0-44.0); MEAN CORPUSCULAR HEMOGLOBIN 30.1 pg (27.0-33.0); MEAN CORPUSCULAR HGB CONC 32.9 g/dl (32.0-36.5); MEAN CORPUSCULAR VOLUME 91.4 fl (80.0-96.0); NEUTROPHILS # 3.7 10^3/uL (1.5-8.5); NEUTROPHILS % 59.8 % (36.0-66.0); PLATELET COUNT, AUTOMATED 184 10^3/uL (150-450); RED BLOOD COUNT 3.36 10^6/uL (4.00-5.40); WHITE BLOOD COUNT 6.2 10^3/uL (4.0-10.0)
[2019-01-25 07:39] LABS: CALCIUM LEVEL 8.4 MG/DL (8.8-10.2); CREATININE FOR GFR 1.06 MG/DL (0.55-1.30); POTASSIUM SERUM 3.8 MEQ/L (3.5-5.1)
[2019-01-25] MEDS: DIVALPROEX SPRINKLE 125 MG CAP PO SCH ×2 (07:45→20:39)
[2019-01-25] MEDS: HEPARIN SOD (PORCINE) 5000 UNITS/ML VIAL SC SCH ×2 (07:45→20:40)
[2019-01-25] MEDS: PANTOPRAZOLE 40MG TAB (PROTONIX) PO SCH (07:46)
[2019-01-25] MEDS: risperiDONE 2 MG TAB PO SCH ×2 (07:46→20:39)
[2019-01-25] MEDS: ATORVASTATIN 10 MG TAB PO SCH (07:46)
[2019-01-25] MEDS: SERTRALINE HCL 50 MG TAB PO SCH (07:46)
[2019-01-25] MEDS: amLODIPine 5 MG TAB PO SCH (07:49)
[2019-01-25] MEDS: levETIRAcetam 250MG TABLET (KEPPRA) PO SCH ×2 (07:50→20:39)
[2019-01-25] MEDS: BENZTROPINE 0.5 MG TAB PO SCH (08:07)
--- NOTE | 2019-01-25 12:41 | IPNPDOC ---
Text Note Date of Service The patient was seen on 01/25/19. NOTE S: patient states feels good, no fever x 24 hours, no dysuria, no urgency, no back pain. good appetite, no rigors or chills. O: Vitals as below General: pleasant NAD AAOx3 HRRR LCTA no CVA tenderness Ext: no edema Abdomen soft NT ND NABS A/P: E COLI UTI with bacteremia - change to po levaquin 750mg q48 hours based on creat Clear. next dose due 01/26/19 at 0900. Will need 7 days after last negative blood cultures (01/22/19) for antibiotic treatment. possible d/c in AM Sepsis with lactic acidosis from E Coli UTI and E Coli bacteremia - resolved. LUCIO due to hypotension, sepsis - resolved with IVF. Hypertension with hypotension - intial hypotension resolved from sepsis. continue with amlodipine , hold lasix. Hyperlipidemia continue statin hypothyroid continue synthroid Seizure disorder continue keppra and valproate; seizure precautions - change depakote ER to sprinkles Schizoaffective disorder/PTSD - continue benztropine, risperidal, seroquel, ; history of PUD - continue PPI VS,Fishbone, I+O VS, Fishbone, I+O Laboratory Tests 01/25/19 06:40 Red Blood Count 3.36 L, Mean Corpuscular Volume 91.4, Mean Corpuscular Hemoglobin 30.1, Mean Corpuscular Hemoglobin Concent 32.9, Red Cell Distribution Width 14.9 H, Neutrophils (%) (Auto) 59.8, Lymphocytes (%) (Auto) 21.2 L, Monocytes (%) (Auto) 16.0 H, Eosinophils (%) (Auto) 1.0, Basophils (%) (Auto) 0.5, Neutrophils # (Auto) 3.7, Lymphocytes # (Auto) 1.3 L, Monocytes # (Auto) 1.0 H, Eosinophils # (Auto) 0.1, Basophils # (Auto) 0.0, Calcium Level 8.4 L Vital Signs Date Time Temp Pulse Resp B/P (MAP) Pulse Ox O2 Delivery O2 Flow Rate FiO2 01/25/19 07:49 77 140/68 01/25/19 06:00 99.2 22 93 01/22/19 03:15 Nasal Cannula 2.0 I&O- Last 24 Hours up to 6 AM 01/25/19 06:00 Intake Total 3410 ml Output Total 300 ml Balance 3110 ml BLANCA LOPEZ DO Jan 25, 2019 12:41
[2019-01-25] MEDS ORDERED: D5W 1,000 ML IV SCH (12:45)
[2019-01-25] MEDS ORDERED: LEVA750T7 PO (12:45)
[2019-01-25 14:00] VITALS: BP 135/66
[2019-01-25 22:00] VITALS: BP 136/65
[2019-01-26] MEDS: LEVOTHYROXINE 100MCG TABLET (0.1MG) PO SCH (05:55)
[2019-01-26 06:00] VITALS: BP 142/74
[2019-01-26] MEDS ORDERED: LevoFLOXacin 750 MG TABLET PO SCH (06:00)
[2019-01-26 07:09] LABS: CALCIUM LEVEL 8.1 MG/DL (8.8-10.2); CREATININE FOR GFR 1.03 MG/DL (0.55-1.30); GLOMERULAR FILTRATION RATE 56.9 (>45); POTASSIUM SERUM 4.1 MEQ/L (3.5-5.1)
[2019-01-26 08:23] VITALS: BP 142/74
[2019-01-26] MEDS: amLODIPine 5 MG TAB PO SCH (08:23)
[2019-01-26] MEDS: PANTOPRAZOLE 40MG TAB (PROTONIX) PO SCH (08:23)
[2019-01-26] MEDS: ATORVASTATIN 10 MG TAB PO SCH (08:23)
[2019-01-26] MEDS: BENZTROPINE 0.5 MG TAB PO SCH (08:23)
[2019-01-26] MEDS: DIVALPROEX SPRINKLE 125 MG CAP PO SCH (08:23)
[2019-01-26] MEDS: SERTRALINE HCL 50 MG TAB PO SCH (08:23)
[2019-01-26] MEDS: levETIRAcetam 250MG TABLET (KEPPRA) PO SCH (08:23)
[2019-01-26] MEDS: HEPARIN SOD (PORCINE) 5000 UNITS/ML VIAL SC SCH (08:24)
--- NOTE | 2019-01-26 12:58 | DS.PDOC ---
Discharge Summary General Date of Admission Jan 21, 2019 at 23:49 Date of Discharge 01/26/19 Primary Care Physician: Randolph Melendez MD Attending Physician: BLANCA LOPEZ DO Discharge Summary PROCEDURES PERFORMED DURING STAY: none ADMITTING DIAGNOSES: UTI LUCIO on CKD Hypertension Hyperlipidemia hypothyroid Seizure disorder Morbid Obesity Schizoaffective disorder/PTSD Peptic ulcer disease DISCHARGE DIAGNOSES: E COLI UTI with bacteremia Sepsis with lactic acidosis from E Coli UTI and E Coli bacteremia - resolved. LUCIO due to hypotension, sepsis Hypertension with hypotension Hyperlipidemia hypothyroid Seizure disorder Schizoaffective disorder/PTSD history of PUD COMPLICATIONS/CHIEF COMPLAINT: Lucio Superimposed On Ckd; Uti. HISTORY OF PRESENT ILLNESS: 68 year old female called the ambulance by pressing her life alert for lift assist. She was found half out of bed was diaphoretic and warm to touch by EMS but her recorded temp was 97.5. She complained of extreme generalized weakness and dizziness for 3 to 4 days with urinary incontinence and frequency. Her creatinine was elevated from baseline of 1.13 to 1.79. Her lactate was elevated to 2.3. She was admitted for UTI and lucio on ckd stage 3. See H&P for details HOSPITAL COURSE: Patient admitted, given IV sepsis fluid procotol and started on rocephin IV. Her lactate level improved. Blood culture and urine culture positive for E Coli. She was changed to po levaquin 750mg q48 hours based on creat Clear. She remained afebrile and is being discharged in stable and improved condition. Will need 7 days after last negative blood cultures (01/22/19) for antibiotic treatment. DISCHARGE MEDICATIONS: Please see below. ALLERGIES: Please see below. PHYSICAL EXAMINATION ON DISCHARGE: VITAL SIGNS: Please see below. GENERAL: pleasant NAD AAOx3 HRRR LCTA no W/R/R, no CVA tenderness LABORATORY DATA: Please see below. IMAGING: renal US and bladder US - negative PROGNOSIS: good ACTIVITY: as tolerated DIET: as tolerated DISCHARGE PLAN: discharge home with services DISPOSITION: home with home services DISCHARGE INSTRUCTIONS: 1. Drink 8 ounce extra fluid daily for hydration 2. do not take furosemide or potassium until 01/30/19, then okay to restart furosemide 20mg ONCE A DAY and potassium chloride 10meq ONCE A DAY. 3. Levaquin for 1 week (750mg every 24 hours based on creat clearance - dose given in hospital 01/26, next doses due 01/28,01/30,02/01 and completed treatement) 4. Follow up with PCP in 5-7 days for recheck of E Coli bacteremia, E Coli UTI and dehydration (with mild hypernatremia) ITEMS TO FOLLOWUP ON ON OUTPATIENT: 1. BMP in 1 week thru PCP office DISCHARGE CONDITION: stable TIME SPENT ON DISCHARGE: 30 minutes. Vital Signs/I&Os Vital Signs Date Time Temp Pulse Resp B/P (MAP) Pulse Ox O2 Delivery O2 Flow Rate FiO2 01/25/19 22:00 98.2 77 20 136/65 (88) 93 01/22/19 03:15 Nasal Cannula 2.0 I&O- Last 24 Hours up to 6 AM 01/26/19 05:59 Intake Total 3280 ml Output Total 1400 ml Balance 1880 ml Laboratory Data Labs 24H Laboratory Tests 2 01/26/19 06:38: Anion Gap 5L, Glomerular Filtration Rate 56.9, Blood Urea Nitrogen 24H, Creati nine 1.03, Sodium Level 146H, Potassium Level 4.1, Chloride Level 110H, Carbon Dioxide Level 31, Calcium Level 8.1L CBC/BMP Laboratory Tests 01/26/19 06:38 Calcium Level 8.1 L Microbiology Microbiology 01/22/19 Blood Culture - Preliminary, Resulted No Growth after 72 hours. All specime... 01/21/19 Blood Culture - Preliminary, Resulted No Growth after 72 hours. All specime... 01/21/19 Blood Culture - Final, Complete Escherichia Coli 01/21/19 Urine Culture - Final, Complete Escherichia Coli Discharge Medications Scheduled Amlodipine Besylate (Norvasc) 5 Mg Tab, 5 MG PO DAILY, (Reported) Atorvastatin Calcium (Atorvastatin Calcium) 10 Mg Tab, 10 MG PO DAILY, (Reported) Benztropine Mesylate (Benztropine Mesylate) 0.5 Mg Tablet, 0.5 MG PO DAILY, (Reported) Calcium Carbonate/Vitamin D3 (Calcium 500-Vit D3 200 Tablet) 1 Each Tablet, 1 TAB PO DAILY, (Reported) Cetirizine HCl (Cetirizine HCl) 10 Mg Tablet, 10 MG PO QHS, (Reported) Divalproex Sodium (Divalproex Sodium ER) 500 Mg Tab.er.24h, 1,000 MG PO DAILY, (Reported) Levofloxacin (Levaquin) 750 Mg Tablet, 750 MG PO Q48H take pill on 01/28/19, 01/30/19 and 02/01/19 Levothyroxine Sodium (Synthroid) 100 Mcg Tablet, 100 MCG PO DAILY, (Reported) TAKES AT 0300 Multivitamins (Thera M Plus Tablet) 1 Each Tablet, 1 TAB PO DAILY, (Reported) Pantoprazole Sodium (Protonix) 40 Mg Tablet.dr, 40 MG PO DAILY, (Reported) Risperidone (Risperidone) 4 Mg Tab, 4 MG PO QHS, (Reported) Sertraline HCl (Sertraline HCl) 50 Mg Tablet, 50 MG PO DAILY, (Reported) levETIRAcetam (levETIRAcetam) 500 Mg Tablet, 500 MG PO BID, (Reported) Scheduled PRN Acetaminophen (Tylenol Extra Strength) 500 Mg Tablet, 500 MG PO BID PRN for PAIN, (Reported) Meclizine HCl (Meclizine HCl) 25 Mg Tablet, 25 MG PO TID PRN for DIZZINESS, (Reported) Allergies Coded Allergies: Sulfa (Sulfonamide Antibiotics) (Verified Allergy, Unknown, 01/21/19) aspirin (Verified Allergy, Unknown, 01/21/19) BLANCA LOPEZ DO Jan 26, 2019 07:37
== END 2019-01-26 14:00 | disposition home health service (06) | DRG 682 ==
LOC: M ED 22:05 → M ED INP 23:49 → M MS5PR 01-22 04:03
PROVIDERS: ADMIT Internal Medicine Nephrology; ATTEND Family Medicine
DX: N17.9 Acute kidney failure, unspecified (principal); A41.9 Sepsis, unspecified organism; N39.0 Urinary tract infection, site not specified; E87.2 Acidosis; F25.9 Schizoaffective disorder, unspecified; N18.3 Chronic kidney disease, stage 3 (moderate); E66.01 Morbid (severe) obesity due to excess calories; E78.5 Hyperlipidemia, unspecified; I12.9 Hypertensive chronic kidney disease with stage 1 through stage 4 chronic kidney disease, or unspecified chronic kidney disease; G40.909 Epilepsy, unspecified, not intractable, without status epilepticus; B96.29 Other Escherichia coli [E. coli] as the cause of diseases classified elsewhere; E03.9 Hypothyroidism, unspecified; Z79.899 Other long term (current) drug therapy; Z88.2 Allergy status to sulfonamides; Z88.6 Allergy status to analgesic agent; K27.9 Peptic ulcer, site unspecified, unspecified as acute or chronic, without hemorrhage or perforation

== ENCOUNTER → 2020-05-03 | Outpatient (CLI) | payer MEDICARE, MEDICAID ==
[~2020-05-03] MED LIST changes: +ACET-897 PO; +BENZ0.5T23 PO; +CALC-212 PO; +CALC500T44 PO; +CETI10TA4 PO; +DIVA500T9 PO; +LEVA750T7 PO; +LEVE500T5 PO; -MECL-68 PO; +MECL1TAB31 PO; +POTA10CA32 PO; +RISP-11 PO; -RISP4TAB2 PO; +SERT50TA29 PO; +SYNT100T PO; +VITMTA PO
--- NOTE | 2020-05-03 15:33 | REPMRS ---
Patient History The patient states she has not had a clinical breast exam in over a year. Patient is postmenopausal, has history of endometrial cancer at age 61, and is nulliparous. Family history of pancreatic cancer in mother, colorectal cancer at age 44 in maternal unspecified relative. No Hormone Replacement Therapy Digital Woman Screen Mammo: May 03, 2020 - Exam #: [id number] Bilateral CC and MLO view(s) were taken. Technologist: Nikia Whatley, Technologist Prior study comparison: January 16, 2019, bilateral digital woman screen mammo performed at [facility]. July 02, 2016, digital woman screen mammo performed at [facility]. May 02, 2015, digital woman screen mammo performed at [facility]. FINDINGS: There are scattered fibroglandular densities. The Volpara volumetric breast density category is:B. There is a grouping of microcalcifications in the upper outer quadrant on the right which merits further evaluation. This is only visible on the MLO view. There has been no other change in the appearance of the mammogram from the prior studies. There is a mild amount of scattered fibroglandular density which is fairly symmetric. There is no interval development of dominant mass, architectural distortion, or grouped microcalcification suggestive of malignancy. 3-D tomosynthesis shows no additional findings. Assessment: BI-RADS/ACR category 0 mammogram, Incomplete: Need additional imaging evaluation and/or prior mammograms for comparison. Recommendation Special view mammogram of the right breast. This patient's [facility] Lifetime Breast Cancer Risk is estimated at 7.5 %. This mammogram was interpreted with the aid of an FDA-approved computer-aided dectection system. Electronically Signed By: Anand Poe MD 05/03/20 [id number]
== END ==
LOC: M WHC 13:47
PROVIDERS: ATTEND Nurse Practitioner Adult Health
DX: R92.2 Inconclusive mammogram (principal); N63.11 Unspecified lump in the right breast, upper outer quadrant; Z85.42 Personal history of malignant neoplasm of other parts of uterus; Z80.0 Family history of malignant neoplasm of digestive organs

== ENCOUNTER 2020-06-04 23:54 | Emergency (ER) | payer MEDICARE, MEDICAID ==
[2020-06-05] MEDS ORDERED: FURO20TA2 (00:18)
[2020-06-05 00:48] LABS: BASO % 0.7 % (0.0-1.0); EOS % 0.5 % (0.0-3.0); HEMATOCRIT 34.9 % (36.0-47.0); HEMOGLOBIN 11.3 g/dl (12.0-15.5); LYMPH # 1.9 10^3/uL (1.5-5.0); LYMPH % 35.2 % (24.0-44.0); MEAN CORPUSCULAR HEMOGLOBIN 30.1 pg (27.0-33.0); MEAN CORPUSCULAR HGB CONC 32.4 g/dl (32.0-36.5); MEAN CORPUSCULAR VOLUME 92.8 fl (80.0-96.0); MONO # 0.8 10^3/uL (0.0-0.8); MONO % 13.9 % (0.0-5.0); NEUTROPHILS # 2.7 10^3/uL (1.5-8.5); NEUTROPHILS % 49.3 % (36.0-66.0); PLATELET COUNT, AUTOMATED 190 10^3/uL (150-450); RED BLOOD COUNT 3.76 10^6/uL (4.00-5.40); WHITE BLOOD COUNT 5.5 10^3/uL (4.0-10.0)
[2020-06-05 01:08] LABS: INR 1.04; PROTHROMBIN TIME 13.8 SECONDS (12.5-14.3)
--- NOTE | 2020-06-05 01:14 | REPVR ---
PROCEDURE INFORMATION: Exam: XR Chest, 2 Views Exam date and time: 06/05/2020 1:02 AM Age: 70 years old Clinical indication: Shortness of breath; Additional info: Dizziness TECHNIQUE: Imaging protocol: XR of the chest Views: 2 views. COMPARISON: [place] PORTABLE CHEST X-RAY 01/21/2019 10:26 PM FINDINGS: Lungs: Unremarkable. No consolidation. Pleural space: Unremarkable. No pleural effusion. No pneumothorax. Heart/Mediastinum: Unremarkable. No cardiomegaly. Bones/joints: Unremarkable. Soft tissues: There are moderately generous overlying soft tissues. Other findings: There is rotation to the right. IMPRESSION: Negative rotated chest. Electronically signed by: Jarred Hernandez On 06/05/2020 01:15:02 AM
[2020-06-05] MEDS ORDERED: MECLIZINE 25 MG TABLET PO ONE (01:15)
[2020-06-05 01:26] LABS: ALBUMIN 3.2 GM/DL (3.2-5.2); ALT/SGPT 18 U/L (12-78); BILIRUBIN,DIRECT < 0.1 MG/DL (0.0-0.2); BILIRUBIN,TOTAL 0.2 MG/DL (0.2-1.0); BLOOD UREA NITROGEN 24 MG/DL (7-18); CALCIUM LEVEL 8.1 MG/DL (8.8-10.2); CARBON DIOXIDE LEVEL 31 MEQ/L (21-32); CHLORIDE LEVEL 103 MEQ/L (98-107); CK-MB VALUE MASS < 1.0 NG/ML (<3.6); CPK CREATINE PHOSPHOKINASE 68 U/L (26-192); CREATININE FOR GFR 1.38 MG/DL (0.55-1.30); FREE T4 1.48 NG/DL (0.76-1.46); GLOMERULAR FILTRATION RATE 40.4 (>45); GLUCOSE, FASTING 89 MG/DL (70-100); MB/CK RELATIVE INDEX 1.47 (< OR =4); POTASSIUM SERUM 3.9 MEQ/L (3.5-5.1); SODIUM LEVEL 139 MEQ/L (136-145); THYROID STIMULATING HORMONE 0.117 uIU/ML (0.358-3.740); TOTAL PROTEIN 6.7 GM/DL (6.4-8.2); TROPONIN I < 0.02 NG/ML (< 0.10)
--- NOTE | 2020-06-05 01:30 | REPVR ---
PROCEDURE INFORMATION: Exam: CT Head Without Contrast Exam date and time: 06/05/2020 1:17 AM Age: 70 years old Clinical indication: Dizziness TECHNIQUE: Imaging protocol: Computed tomography of the head without contrast. Radiation optimization: All CT scans at this facility use at least one of these dose optimization techniques: automated exposure control; mA and/or kV adjustment per patient size (includes targeted exams where dose is matched to clinical indication); or iterative reconstruction. COMPARISON: CT Head without contrast 05/20/2014 7:57 AM FINDINGS: Brain: There is mild patchy low attenuation of deep white matter. The sulci are within normal limits. Cerebral ventricles: There is mild prominence of the central ventricular system. Bones/joints: Unremarkable. No acute fracture. Paranasal sinuses: Visualized sinuses are unremarkable. No fluid levels. Mastoid air cells: Visualized mastoid air cells are well aerated. Soft tissues: Unremarkable. IMPRESSION: 1. Mild chronic ischemic white matter change and atrophy which is similar to 05/20/2014. 2. Otherwise negative noncontrast head CT. Electronically signed by: Jarred Hernandez On 06/05/2020 01:31:07 AM
[2020-06-05 02:30] VITALS: BP 121/60
--- NOTE | 2020-06-07 07:55 | ECGEPIP ---
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
== END 2020-06-05 04:11 | disposition home or self-care (01) ==
LOC: M ED 23:54
DX: R42 Dizziness and giddiness (principal); I10 Essential (primary) hypertension; F43.10 Post-traumatic stress disorder, unspecified; E07.9 Disorder of thyroid, unspecified; E66.9 Obesity, unspecified; G40.909 Epilepsy, unspecified, not intractable, without status epilepticus; F25.9 Schizoaffective disorder, unspecified; I73.9 Peripheral vascular disease, unspecified; Z79.899 Other long term (current) drug therapy; Z88.2 Allergy status to sulfonamides; Z88.8 Allergy status to other drugs, medicaments and biological substances

== ENCOUNTER → 2020-06-13 | Outpatient (CLI) | payer MEDICARE, MEDICAID ==
[~2020-06-13] MED LIST changes: -ALEN70TA74 PO; +ALEN70TA82 PO; +FURO20TA2
--- NOTE | 2020-06-13 14:10 | REP ---
INDICATION: ADDITIONAL VIEWS RT BREAST. COMPARISON: 05/03/2020. TECHNIQUE: Magnification views right breast performed. FINDINGS: In the upper-outer quadrant of the right breast a cluster of multiple pleomorphic microcalcifications is confirmed. These appear somewhat suspicious. Stereotactic biopsy is recommended. IMPRESSION: BIRADS/ACR category 4 suspicious. Clustered pleomorphic microcalcifications upper-outer quadrant right breast. Recommend stereotactic biopsy. This mammogram was interpreted with the aid of an FDA-approved computer-aided detection system. The patient letter being requested is M4. RECOMMENDATION: Recommend stereotactic biopsy clustered microcalcifications upper-outer quadrant right breast. <Electronically signed by Mamadou Jett > 06/13/20 [id number]
== END ==
LOC: M WHC 13:11
PROVIDERS: ATTEND Nurse Practitioner Adult Health
DX: R92.8 Other abnormal and inconclusive findings on diagnostic imaging of breast (principal); N60.11 Diffuse cystic mastopathy of right breast

== ENCOUNTER → 2020-06-29 | Outpatient (REF) | payer MEDICARE, MEDICAID | LOC: M LAB REF 14:15 | DX: N64.9 Disorder of breast, unspecified (principal) ==

== ENCOUNTER → 2020-07-07 | Outpatient (REF) | payer MEDICARE, MEDICAID | LOC: M LAB REF 12:56 | PROVIDERS: ATTEND Radiology Diagnostic Radiology | DX: N60.01 Solitary cyst of right breast (principal) ==

== ENCOUNTER → 2020-07-28 | Outpatient (REF) | payer MEDICARE, MEDICAID | LOC: M SFHCWAGY 17:06 | PROVIDERS: ATTEND Nurse Practitioner Family | DX: Z12.72 Encounter for screening for malignant neoplasm of vagina (principal); Z12.12 Encounter for screening for malignant neoplasm of rectum | CPT/HCPCS: 82270; G0101; G0123 ==

== ENCOUNTER 2020-10-23 15:09 | Emergency (ER) | payer MEDICARE, MEDICAID ==
[~2020-10-23 15:09] MED LIST changes: -CALC500T44 PO; +OYST500T92 PO
[2020-10-23 15:52] LABS: VENOUS HCO3 27.3 MEQ/L (23.0-27.0); VENOUS O2 SATURATION 68.2 % (60.0-80.0); VENOUS PARTIAL PRESSURE CO2 50.8 mmHg (38.0-50.0); VENOUS PARTIAL PRESSURE O2 38.6 mmHg (30.0-50.0); VENOUS PH 7.348 UNITS (7.330-7.430); VENOUS STANDARD HCO3 24.7 MEQ/L; VENOUS TOTAL CO2 28.8 MEQ/L (24.0-28.0)
[2020-10-23 15:53] LABS: BASO % 0.9 % (0.0-1.0); EOS % 0.4 % (0.0-3.0); HEMOGLOBIN 11.6 g/dl (12.0-15.5); LYMPH # 0.7 10^3/uL (1.5-5.0); LYMPH % 16.1 % (24.0-44.0); MEAN CORPUSCULAR HEMOGLOBIN 30.3 pg (27.0-33.0); MEAN CORPUSCULAR HGB CONC 33.1 g/dl (32.0-36.5); MEAN CORPUSCULAR VOLUME 91.4 fl (80.0-96.0); MONO # 0.8 10^3/uL (0.0-0.8); MONO % 17.7 % (2.0-8.0); NEUTROPHILS # 2.9 10^3/uL (1.5-8.5); NEUTROPHILS % 64.5 % (36.0-66.0); PLATELET COUNT, AUTOMATED 208 10^3/uL (150-450); RED BLOOD COUNT 3.83 10^6/uL (4.00-5.40); WHITE BLOOD COUNT 4.5 10^3/uL (4.0-10.0)
--- NOTE | 2020-10-23 16:04 | REP ---
INDICATION: Altered Mental Status COMPARISON: 06/05/2020 TECHNIQUE: Axial noncontrast images from the skull base to the thoracic inlet with coronal reformations. This CT examination was performed using the following dose reduction techniques: Automated exposure control, adjustment of mA and/or kv according to the patient's size, and use of iterative reconstruction technique. FINDINGS: Atrophy with periventricular leukomalacia and microvascular ischemic changes are appreciated. The ventricles and sulci are symmetric. Jett-white differentiation is maintained. There is no evidence for acute intracranial hemorrhage, mass/mass effect, pathology or infarction. No extra-axial fluid collection. Calvarium is intact. Paranasal sinuses and mastoid air cells are clear. IMPRESSION: Atrophy and microvascular ischemic changes. No acute intracranial hemorrhage, infarction, or mass/mass effect. <Electronically signed by Nimesh Lu > 10/23/20 1600
[2020-10-23 16:37] LABS: ALBUMIN 3.2 GM/DL (3.2-5.2); ALT/SGPT 19 U/L (12-78); BILIRUBIN,DIRECT < 0.1 MG/DL (0.0-0.2); BILIRUBIN,TOTAL 0.3 MG/DL (0.2-1.0); BLOOD UREA NITROGEN 14 MG/DL (7-18); CALCIUM LEVEL 8.4 MG/DL (8.8-10.2); CARBON DIOXIDE LEVEL 28 MEQ/L (21-32); CHLORIDE LEVEL 108 MEQ/L (98-107); CPK CREATINE PHOSPHOKINASE 680 U/L (26-192); GLOMERULAR FILTRATION RATE 52.4 (>45); GLUCOSE, FASTING 85 MG/DL (70-100); MB/CK RELATIVE INDEX 1.47 (< OR =4); POTASSIUM SERUM 3.6 MEQ/L (3.5-5.1); SODIUM LEVEL 143 MEQ/L (136-145); TROPONIN I < 0.02 NG/ML (< 0.10)
[2020-10-23] MEDS ORDERED: NS 1,000 ML IV ONE (17:55)
[2020-10-23 21:15] VITALS: BP 141/66
--- NOTE | 2020-10-24 09:32 | ECGEPIP ---
[facility] - ED Test Date: 2020-10-23 Pat Name: BASSAM AHUMADA Department: Room: - Gender: Female Financial Aid: FF : 1950 Requested By: Vi Bravo Order Number: [id number] Reading MD: Vi Bravo Measurements Intervals [place] Rate: 122 P: 78 [place]: 192 QRS: -22 QRSD: 84 T: 29 QT: 354 QTc: 504 Interpretive Statements Sinus tachycardia with premature atrial complexes NSTTW abnormalities right ventricular conduction delay increased rate 06/05/20 Electronically Signed on 10-24-2020 9:31:57 EDT by Vi Bravo
== END 2020-10-23 21:45 | disposition home or self-care (01) ==
LOC: M ED 15:09 → EDBD 15:09 → M ED 21:45
DX: R41.0 Disorientation, unspecified (principal); R00.0 Tachycardia, unspecified; Z85.42 Personal history of malignant neoplasm of other parts of uterus; F41.9 Anxiety disorder, unspecified; F32.9 Major depressive disorder, single episode, unspecified; F43.10 Post-traumatic stress disorder, unspecified; F25.9 Schizoaffective disorder, unspecified; G31.1 Senile degeneration of brain, not elsewhere classified; I67.82 Cerebral ischemia; Z79.899 Other long term (current) drug therapy; Z88.2 Allergy status to sulfonamides; Z88.8 Allergy status to other drugs, medicaments and biological substances

== ENCOUNTER 2020-10-27 17:54 | Inpatient (IN) | payer MEDICARE, MEDICAID ==
[2020-10-27 19:09] LABS: VENOUS BASE EXCESS -2.6 (-2.0-2.0); VENOUS HCO3 22.4 MEQ/L (23.0-27.0); VENOUS O2 SATURATION 82.1 % (60.0-80.0); VENOUS PARTIAL PRESSURE CO2 39.2 mmHg (38.0-50.0); VENOUS PARTIAL PRESSURE O2 46.7 mmHg (30.0-50.0); VENOUS PH 7.374 UNITS (7.330-7.430); VENOUS TOTAL CO2 23.6 MEQ/L (24.0-28.0)
[2020-10-27 19:13] LABS: BASO % 0.6 % (0.0-1.0); EOS % 0.2 % (0.0-3.0); HEMOGLOBIN 11.8 g/dl (12.0-15.5); LYMPH % 15.9 % (24.0-44.0); MEAN CORPUSCULAR HEMOGLOBIN 29.9 pg (27.0-33.0); MEAN CORPUSCULAR HGB CONC 31.9 g/dl (32.0-36.5); MEAN CORPUSCULAR VOLUME 93.9 fl (80.0-96.0); MONO # 0.8 10^3/uL (0.0-0.8); MONO % 13.5 % (2.0-8.0); NEUTROPHILS # 4.3 10^3/uL (1.5-8.5); NEUTROPHILS % 69.5 % (36.0-66.0); PLATELET COUNT, AUTOMATED 202 10^3/uL (150-450); RED BLOOD COUNT 3.94 10^6/uL (4.00-5.40); WHITE BLOOD COUNT 6.2 10^3/uL (4.0-10.0)
--- NOTE | 2020-10-27 19:14 | REPVR ---
PROCEDURE INFORMATION: Exam: CT Head Without Contrast Exam date and time: 10/27/2020 6:40 PM Age: 70 years old Clinical indication: Altered mental status/memory loss TECHNIQUE: Imaging protocol: Computed tomography of the head without contrast. Radiation optimization: All CT scans at this facility use at least one of these dose optimization techniques: automated exposure control; mA and/or kV adjustment per patient size (includes targeted exams where dose is matched to clinical indication); or iterative reconstruction. COMPARISON: CT Head without contrast 10/23/2020 3:40 PM FINDINGS: Brain: The brain demonstrates generalized volume loss. No hemorrhage or edema seen. Prominent patchy deep white matter hypodensities most likely representing chronic small vessel ischemic change. No evolving territorial infarct or intracranial hemorrhage seen. Cerebral ventricles: Stable, moderate ventriculomegaly probably reflecting volume loss, in particular central volume loss. Paranasal sinuses: Visualized sinuses are unremarkable. No fluid levels. Mastoid air cells: Visualized mastoid air cells are well aerated. Bones/joints: Unremarkable. No acute fracture. Soft tissues: Unremarkable. IMPRESSION: No acute intracranial abnormality seen. Electronically signed by: Kimberley Bowen On 10/27/2020 19:14:31 PM
[2020-10-27 19:42] LABS: OSMOLALITY SERUM 299 MOSM/KG (280-301)
[2020-10-27 19:52] LABS: ALBUMIN 3.4 GM/DL (3.2-5.2); ALT/SGPT 27 U/L (12-78); BILIRUBIN,DIRECT < 0.1 MG/DL (0.0-0.2); BILIRUBIN,TOTAL 0.4 MG/DL (0.2-1.0); BLOOD UREA NITROGEN 20 MG/DL (7-18); CALCIUM LEVEL 8.7 MG/DL (8.8-10.2); CARBON DIOXIDE LEVEL 25 MEQ/L (21-32); CHLORIDE LEVEL 110 MEQ/L (98-107); CK-MB VALUE MASS 4.6 NG/ML (<3.6); CPK CREATINE PHOSPHOKINASE 468 U/L (26-192); CREATININE FOR GFR 1.09 MG/DL (0.55-1.30); GLUCOSE, FASTING 64 MG/DL (70-100); MB/CK RELATIVE INDEX 0.98 (< OR =4); SODIUM LEVEL 144 MEQ/L (136-145); TOTAL PROTEIN 7.2 GM/DL (6.4-8.2); TROPONIN I < 0.02 NG/ML (< 0.10)
--- NOTE | 2020-10-27 19:58 | REP ---
INDICATION: ams COMPARISON: 06/05/2020 TECHNIQUE: Portable AP view of the chest FINDINGS: The mediastinum and cardiac silhouette are stable and within normal limits for portable technique. The lung zimmer demonstrate stable chronic changes without acute consolidation, effusion, or pneumothorax. Skeletal structures are intact. IMPRESSION: No acute cardiopulmonary process appreciated. <Electronically signed by Nimesh Lu > 10/27/201954
[2020-10-27 20:02] LABS: SALICYLATE LEVEL < 1.7 MG/DL (5.0-30.0)
[2020-10-27 20:03] LABS: ACETAMINOPHEN LEVEL < 2.0 UG/ML (10.0-30.0); ETHYL ALCOHOL (ETHANOL) < 0.003 % (0.000-0.010)
[2020-10-27 20:07] LABS: POTASSIUM SERUM 4.5 MEQ/L (3.5-5.1)
--- NOTE | 2020-10-27 20:24 | ECGEPIP ---
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
[2020-10-27 20:31] LABS: INR 0.99; PROTHROMBIN TIME 13.3 SECONDS (12.5-14.3)
[2020-10-27 20:32] LABS: PARTIAL THROMBOPLASTIN TIME 24.7 SECONDS (24.2-38.5)
[2020-10-27 21:50] LABS: AMPHETAMINES LEVEL URINE NEGATIVE (NEGATIVE); BARBITURATES URINE NEGATIVE (NEGATIVE); BENZODIAZEPINES URINE NEGATIVE (NEGATIVE); CANNABINOIDS URINE NEGATIVE (NEGATIVE); COCAINE METABOLITE URINE NEGATIVE (NEGATIVE); METHADONE URINE NEGATIVE (NEGATIVE); OPIATES URINE NEGATIVE (NEGATIVE); PHENCYCLIDINE URINE NEGATIVE (NEGATIVE)
[2020-10-27] MEDS ORDERED: DEXTROSE 50% 50 ML SYRINGE IV STA (22:32)
[2020-10-27] MEDS ORDERED: PATIENT COMMENT (23:19)
[2020-10-27] MEDS ORDERED: FURO20TA2 PO (23:19)
[2020-10-27] MEDS ORDERED: ZOLO100T PO (23:19)
[2020-10-27] MEDS ORDERED: ACETAMINOPHEN TAB 650MG DOSE (2X325MG) PO PRN (23:25)
[2020-10-27] MEDS ORDERED: MOM 30ML SUSPENSION UDC PO PRN (23:25)
[2020-10-27] MEDS ORDERED: MAALOX 30 ML SUSP *UDC PO PRN (23:25)
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
[2020-10-28 01:53] LABS: VALPROIC ACID (DEPAKOTE) 3.2 UG/ML (50.0-100.0)
[2020-10-28] MEDS: HEPARIN SOD (PORCINE) 5000UNITS/ML 1ML VIAL/SYRINGE SC SCH ×3 (05:13→21:15)
[2020-10-28 06:00] VITALS: BP_SYST 124; BP_SYST 141; BP_DIAS 61; BP_DIAS 63
[2020-10-28 06:33] LABS: BASO % 0.7 % (0.0-1.0); EOS # 0.1 10^3/uL (0.0-0.5); EOS % 1.2 % (0.0-3.0); HEMATOCRIT 34.4 % (36.0-47.0); HEMOGLOBIN 11.3 g/dl (12.0-15.5); MEAN CORPUSCULAR HEMOGLOBIN 30.1 pg (27.0-33.0); MEAN CORPUSCULAR HGB CONC 32.8 g/dl (32.0-36.5); MEAN CORPUSCULAR VOLUME 91.7 fl (80.0-96.0); MONO # 0.8 10^3/uL (0.0-0.8); MONO % 13.9 % (2.0-8.0); NEUTROPHILS # 3.9 10^3/uL (1.5-8.5); NEUTROPHILS % 66.7 % (36.0-66.0); PLATELET COUNT, AUTOMATED 218 10^3/uL (150-450); RED BLOOD COUNT 3.75 10^6/uL (4.00-5.40); WHITE BLOOD COUNT 5.9 10^3/uL (4.0-10.0)
[2020-10-28 06:51] LABS: BLOOD UREA NITROGEN 16 MG/DL (7-18); CALCIUM LEVEL 8.8 MG/DL (8.8-10.2); CARBON DIOXIDE LEVEL 26 MEQ/L (21-32); CHLORIDE LEVEL 108 MEQ/L (98-107); CREATININE FOR GFR 0.88 MG/DL (0.55-1.30); GLOMERULAR FILTRATION RATE > 60.0 (>45); GLUCOSE, FASTING 85 MG/DL (70-100); MAGNESIUM LEVEL 1.8 MG/DL (1.8-2.4); POTASSIUM SERUM 3.6 MEQ/L (3.5-5.1); SODIUM LEVEL 144 MEQ/L (136-145)
[2020-10-28 08:18] LABS: C REACTIVE PROTEIN QUANTITATIV 2.07 MG/DL (0.00-0.30)
[2020-10-28 09:01] LABS: ERYTHROCYTE SEDIMENTATION RATE 17 mm/hr (0-30)
[2020-10-28] MEDS: DOCUSATE SODIUM 100MG CAPSULE PO SCH ×2 (09:38→21:16)
[2020-10-28] MEDS: SERTRALINE 100 MG TAB PO SCH (11:53)
[2020-10-28] MEDS: ATORVASTATIN 10 MG TAB PO SCH (11:53)
[2020-10-28] MEDS: MULTIVITAMINS/MINERALS THERAP 1 TAB PO SCH (11:54)
[2020-10-28] MEDS: LEVOTHYROXINE 100MCG TABLET (0.1MG) PO SCH (11:54)
[2020-10-28] MEDS: FUROSEMIDE 20 MG TAB PO SCH ×2 (11:55→21:17)
[2020-10-28] MEDS: levETIRAcetam 250MG TABLET (KEPPRA) PO SCH ×2 (11:55→21:16)
[2020-10-28] MEDS: PANTOPRAZOLE 40MG TAB (PROTONIX) PO SCH (11:55)
[2020-10-28] MEDS: DIVALPROEX 500MG *ER* TAB PO SCH (11:56)
[2020-10-28] MEDS: amLODIPine 5 MG TAB PO SCH (12:02)
--- NOTE | 2020-10-28 12:25 | IPNPDOC ---
Subjective Date Seen The patient was seen on 10/28/20. Subjective Chief Complaint/HPI Mrs. Kidd is a 70 year old female with schizoaffective disorder, seizure disorder, and hypothyroidism who present with AMS. This morning, she did not answer questions appropriately and at one point just chose to stare at me, refusing to answer. No signs of infection with a low WBC, negative UA, and negative CXR. Ammonia low. Negative for hypercarbia or respiratory failure. Utox negative. Salicylate, acetaminophen, and alcohol levels low. CT head negative. She has elevated TSH which may mean she has not been taking her levothyroxine. I n addition, her Valproic acid level is also low which may mean she has not been taking her Depakote. Her AMS may be from medical non-compliance to mediations. I reached out to psychiatry, Dr. Salinas for patient evaluation. Otherwise, I was contacted by PFS. It was noted that patient was acting very agitated yesterday. She did not dress appropriately and her home was disheveled and a mess. Please refer to PFS note for further details. Objective Physical Examination General Exam: Positive: No Acute Distress; Negative: Cooperative Eye Exam: Negative: Sclera icteric Neck Exam: Positive: Supple Chest Exam: Positive: Clear to auscultation Heart Exam: Positive: Rate Normal, Regular Rhythm Abdomen Exam: Positive: Normal bowel sounds, Soft; Negative: Tenderness Extremity Exam: Negative: Edema Skin Exam: Positive: Rash (bilateral lower legs with scabs covering ) Psych Exam: Positive: Other (poor historian with intermittent confusion , rambling) Assessment /Plan Assessment Mrs. Kidd is a 70 year old female with schizoaffective disorder, seizure disorder, and hypothyroidism who present with AMS. Her TSH is becoming more elevated and her valproic acid level is low. Suspecting that her AMS may be from non-compliance to medications. She has history of psych hospital admissions. Through chart review, she was in [facility] in 2015. I reached out to psychiatry, Dr. Salinas for patient evaluation. Otherwise, she her vital signs are stable. There is no respiratory failure, renal failure, or liver failure. No hypercarbia or hyperammonemia. Normal leukocytes, negative CXR, negative UA, and afebrile. CT head is normal. Plan/VTE VTE Prophylaxis Ordered?: Yes Plan 1. AMS -Suspecting secondary to non-compliance to medications -Restarted patient's home medications -Requested psychiatry consultation, recommendations appreciated 2. Schizoaffective disorder -History of multiple psych admissions in the past. Last in chart was 2014. -Continue risperidone, sertraline, Keppra, Depakote, and benztropine -Psychiatry consulted, recommendation appreciated -Patient may need IMHU 3. Seizure disorder -Depakote levels are low -Ordering Keppra levels -Seizure precautions -Continue Depakote and Keppra 4. Hypothyroidism -TSH steadily increasing -Potentially non-compliance -Restarted levothyroxine 5. Hypertension -Continue amlodipine 6. Hyperlipidemia -Continue atorvastatin 7. DVT ppx -Heparin subQ Disposition: Pending recommendations from psychiatry. VS, I&O, 24H, Fishbone Vital Signs/I&O Vital Signs Date Time Temp Pulse Resp B/P (MAP) Pulse Ox O2 Delivery O2 Flow Rate FiO2 10/28/20 06:00 98.0 76 18 141/63 (89) 95 Room Air I&O- Last 24 Hours up to 6 AM 10/28/20 06:00 Intake Total 240 ml Output Total 350 ml Balance -110 ml Laboratory Data 24H LABS Laboratory Tests 2 10/27/20 18:36: Urine Opiates Screen NEGATIVE, Urine Methadone Screen NEGATIVE, Urine Barbiturates Screen NEGATIVE, Urine Phencyclidine Screen NEGATIVE, Urine Amphetamines Screen NEGATIVE, Urine Benzodiazepines Screen NEGATIVE, Urine Cocaine Metabolite Screen NEGATIVE, Urine Cannabinoids Screen NEGATIVE 10/27/20 18:37: Immature Granulocyte % (Auto) 0.3, Neutrophils (%) (Auto) 69.5H, Lymphocytes (%) (Auto) 15.9L, Monocytes (%) (Auto) 13.5H, Eosinophils (%) (Auto) 0.2, Basophils (%) (Auto) 0.6, Neutrophils # (Auto) 4.3, Lymphocytes # (Auto) 1.0L, Monocytes # (Auto) 0.8, Eosinophils # (Auto) 0.0, Basophils # (Auto) 0.0, Nucleated Red Blood Cells % (auto) 0.0, Urine Color STRAW, Urine Appearance CLEAR, Urine pH 6.0, Urine Specific [place] 1.006, Urine Protein 1+H, Urine Glucose (UA) NEGATIVE, Urine Ketones 1+H, Urine Blood 1+H, Urine Nitrite NEGATIVE, Urine Bilirubin NEGATIVE, Urine Urobilinogen 0.2, Urine Leukocyte Esterase NEGATIVE, Urine WBC (Auto) 0, Urine RBC (Auto) 0, Urine Hyaline Casts (Auto) 0, Urine Bacteria (Auto) NEGATIVE, Urine Squamous Epithelial Cells 0, Urine Sperm (Auto) , Blood Gas Bicarbonate Standard 22.0, Venous Blood pH 7.374, Venous Blood Partial Pressure CO2 39.2, Venous Blood Partial Pressure O2 46.7, Venous Blood Total Carbon Dioxide 23.6L, Venous Blood HCO3 22.4L, Venous Blood Oxygen Saturation 82.1H, Venous Blood Base Excess -2.6L, Anion Gap 9, Glomerular Filtration Rate 53.0, Osmolality 299, Calcium Level 8.7L, Total Bilirubin 0.4, Direct Bilirubin < 0.1, Aspartate Amino Transf (AST/SGOT) 60H, Alanine Aminotransferase (ALT/SGPT) 27, Alkaline Phosphatase 64, Ammonia < 10, Total Creatine Kinase 468H, Creatine Kinase MB 4.6H, Creatine Kinase MB Relative Index 0.98, Troponin I < 0.02, Total Protein 7.2, Albumin 3.4, Albumin/Globulin Ratio 0.9L, Thyroid Stimulating Hormone (TSH) 8.610H, Salicylates Level < 1.7L, Acetaminophen Level < 2.0L, Valproic Acid (Depakene) Level 3.2L, Ethyl Alcohol Level < 0.003 10/27/20 19:55: Prothrombin Time 13.3, Prothromb Time International Ratio 0.99, Activated Partial Thromboplast Time 24.7L, Lactic Acid Level 1.1 10/27/20 22:31: Bedside Glucose (Misc Panel) 68L 10/27/20 22:57: Bedside Glucose (Misc Panel) 130H 10/28/20 06:00: Immature Granulocyte % (Auto) 0.5, Neutrophils (%) (Auto) 66.7H, Lymphocytes (%) (Auto) 17.0L, Monocytes (%) (Auto) 13.9H, Eosinophils (%) (Auto) 1.2, Basophils (%) (Auto) 0.7, Neutrophils # (Auto) 3.9, Lymphocytes # (Auto) 1.0L, Monocytes # (Auto) 0.8, Eosinophils # (Auto) 0.1, Basophils # (Auto) 0.0, Nucleated Red Blood Cells % (auto) 0.0, Erythrocyte Sedimentation Rate 17, Anion Gap 10, Glomerular Filtration Rate > 60.0, Calcium Level 8.8, Magnesium Level 1.8, C- Reactive Protein, Quantitative 2.07H, Free Triiodothyronine 2.1L CBC/BMP Laboratory Tests 10/27/20 18:37 10/28/20 06:00 Microbiology Microbiology 10/27/20 Respiratory Virus Panel (PCR) ([facility]) - Final, Complete JORDIN ENG DO Oct 28, 2020 12:25
[2020-10-28 14:00] VITALS: BP 126/48
[2020-10-28] MEDS: BENZTROPINE 0.5 MG TAB PO SCH (15:22)
[2020-10-28] MEDS: risperiDONE 2 MG TAB PO SCH (21:16)
[2020-10-28 22:00] VITALS: BP 154/66
[2020-10-29] MEDS: LEVOTHYROXINE 100MCG TABLET (0.1MG) PO SCH (04:06)
[2020-10-29] MEDS: HEPARIN SOD (PORCINE) 5000UNITS/ML 1ML VIAL/SYRINGE SC SCH ×3 (05:22→21:05)
[2020-10-29 06:00] VITALS: BP 130/70
[2020-10-29 06:22] LABS: HEMATOCRIT 36.2 % (36.0-47.0); HEMOGLOBIN 11.7 g/dl (12.0-15.5); MEAN CORPUSCULAR HEMOGLOBIN 29.8 pg (27.0-33.0); MEAN CORPUSCULAR HGB CONC 32.3 g/dl (32.0-36.5); MEAN CORPUSCULAR VOLUME 92.3 fl (80.0-96.0); PLATELET COUNT, AUTOMATED 199 10^3/uL (150-450); RED BLOOD COUNT 3.92 10^6/uL (4.00-5.40); WHITE BLOOD COUNT 5.3 10^3/uL (4.0-10.0)
[2020-10-29 06:51] LABS: CALCIUM LEVEL 8.3 MG/DL (8.8-10.2); CREATININE FOR GFR 1.01 MG/DL (0.55-1.30); GLOMERULAR FILTRATION RATE 57.9 (>45); POTASSIUM SERUM 3.4 MEQ/L (3.5-5.1)
[2020-10-29 07:43] LABS: MAGNESIUM LEVEL 1.7 MG/DL (1.8-2.4)
[2020-10-29] MEDS ORDERED: POTASSIUM CHLORIDE 10 MEQ SR TABLET PO ONE (08:00)
[2020-10-29 09:12] VITALS: BP 136/78
[2020-10-29] MEDS: PANTOPRAZOLE 40MG TAB (PROTONIX) PO SCH (09:23)
[2020-10-29] MEDS: FUROSEMIDE 20 MG TAB PO SCH ×2 (09:23→21:06)
[2020-10-29] MEDS: levETIRAcetam 250MG TABLET (KEPPRA) PO SCH ×2 (09:23→21:05)
[2020-10-29] MEDS: SERTRALINE 100 MG TAB PO SCH (09:23)
[2020-10-29] MEDS: MULTIVITAMINS/MINERALS THERAP 1 TAB PO SCH (09:23)
[2020-10-29] MEDS: DOCUSATE SODIUM 100MG CAPSULE PO SCH ×2 (09:23→21:05)
[2020-10-29] MEDS: ATORVASTATIN 10 MG TAB PO SCH (09:53)
[2020-10-29] MEDS: amLODIPine 5 MG TAB PO SCH (09:54)
[2020-10-29] MEDS: BENZTROPINE 0.5 MG TAB PO SCH (09:55)
[2020-10-29] MEDS: DIVALPROEX 500MG *ER* TAB PO SCH (09:56)
[2020-10-29 14:00] VITALS: BP 117/45
--- NOTE | 2020-10-29 14:53 | MHIPNPDOC ---
[facility] Progress Note Progress Note DATE OF SERVICE: 10/29/20 HISTORY: As per previous notes: "Mrs. Kidd is a 70 year old female with schizoaffective disorder, seizure disorder, and hypothyroidism who present with AMS. This morning, she did not answer questions appropriately and at one point just chose to stare at me, refusing to answer. No signs of infection with a low WBC, negative UA, and negative CXR. Ammonia low. Negative for hypercarbia or respiratory failure. Utox negative. Salicylate, acetaminophen, and alcohol levels low. CT head negative. She has elevated TSH which may mean she has not been taking her levothyroxine. In addition, her Valproic acid level is also low which may mean she has not been taking her Depakote. Her AMS may be from medical non-compliance to mediations. I reached out to psychiatry, Dr. Hart for patient evaluation. Otherwise, I was contacted by PFS. It was noted that patient was acting very agitated yesterday. She did not dress appropriately and her home was disheveled and a mess. Please refer to PFS note for further details." VITAL SIGNS: See below. NEW TEST RESULTS: See below CURRENT MEDICATIONS: See below. MENTAL STATUS EXAMINATION: Patient is a 70-year old female, who is alert, cooperative, dressed in hospital gown, laying in bed. Speech: Is circumstantial, normal in tone, rate and volume. Language skills are fair Thought processes including: circumstantial, tangential, disorganized. Thought content: negative for thought delusions, negative for SI/HI, negative for depressive/anxious thoughts. Description of associations: loose Description of abnormal or psychotic thoughts: Reports visual hallucinations, she sees things moving on the floor Judgment: limited Insight: limited Orientation: x 3 Recent and remote memory: intact Attention span and concentration: fair Language: . Fund of knowledge: . Mood: euthymic. Affect: congruent with mood DIAGNOSES: 1. Schizoaffective disorder ASSESSMENT: The patient says she has been seeing things, like things that move on the floor ut she denies auditory hallucinations. Her thought process is circumstantial and tangential but she can be re directed. She is not aggressive, not violent. She is already on her previous medications, it will take her some time to become stable probably another 48-72 hours. She is not suicidal, not homicidal, although she reports some visual hallucinations that are probably her baseline. She was not responding to internal stimuli while I spoke with her. She will need somebody to assist her with her medications because with her illness, she may become confused and she may forget taking them. I suggest that PFS be contacted to make arrangementes for the patient to be assited once she is discharged home. At this time she doesn't fulfill criteria for IMHU, she is having a good response to her medications. MANAGEMENT PLAN: As above TIME SPENT: 25 minutes. Vital Signs Vital Signs Date Time Temp Pulse Resp B/P (MAP) Pulse Ox O2 Delivery O2 Flow Rate FiO2 10/29/20 09:54 65 136/78 10/29/20 09:12 95.7 20 97 Room Air Laboratory Data 24H Labs Laboratory Tests 2 10/29/20 06:00: Nucleated Red Blood Cells % (auto) 0.0, Anion Gap 6L, Glomerular Filtration Rate 57.9, Calcium Level 8.3L, Magnesium Level 1.7L CBC/BMP Laboratory Tests 10/29/20 06:00 Current Medications Current Medications Medications (Trade) Dose Ordered Sig/Marisa Route PRN Reason Start Time Stop Time Status Last Admin Dose Admin Acetaminophen (Tylenol Tab) 650 mg Q4H PRN PO PAIN OR FEVER 10/27/20 23:25 Al Hydrox/Mg Hydrox/Simethicone (Mylanta) 30 ml DAILY PRN PO DYSPEPSIA 10/27/20 23:25 Amlodipine Besylate (Norvasc) 5 mg DAILY PO 10/28/20 09:00 10/29/20 09:54 Atorvastatin Calcium (Lipitor) 10 mg DAILY PO 10/28/20 09:00 10/29/20 09:53 Benztropine Mesylate (Cogentin) 0.5 mg DAILY PO 10/28/20 14:00 10/29/20 09:55 Dextrose (Dextrose 50%) 25 ml STAT STAT IV 10/27/20 22:32 10/27/20 22:33 DC 10/27/20 22:35 Divalproex Sodium (Depakote Er) 1,000 mg DAILY PO 10/28/20 09:00 10/29/20 09:56 Docusate Sodium (Colace) 100 mg BID PO 10/28/20 09:00 10/29/20 09:23 Furosemide (Lasix) 20 mg BID PO 10/28/20 09:00 10/29/20 09:23 Heparin Sodium (Porcine) (Heparin) 5,000 units Q8H SC 10/28/20 06:00 10/29/20 05:22 Home Med (Med Rec Complete!) ASDIRECTED XX 10/27/20 23:20 10/27/20 23:22 DC Levetiracetam (Keppra) 500 mg BID PO 10/28/20 09:00 10/29/20 09:23 Levothyroxine Sodium (Synthroid) 100 mcg DAILY@0300 PO 10/28/20 10:00 10/29/20 04:06 Magnesium Hydroxide (Milk Of Magnesia) 30 ml DAILY PRN PO CONSTIPATION 10/27/20 23:25 Multivitamins (Theragram-M) 1 tab DAILY PO 10/28/20 09:00 10/29/20 09:23 Pantoprazole Sodium (Protonix) 40 mg DAILY PO 10/28/20 09:00 10/29/20 09:23 Risperidone (RisperDAL) 4 mg QHS PO 10/28/20 21:00 10/28/20 21:16 Sertraline HCl (Zoloft) 100 mg DAILY PO 10/28/20 09:00 10/29/20 09:23 Allergies Coded Allergies: Sulfa (Sulfonamide Antibiotics) (Verified Allergy, Unknown, 01/21/19) aspirin (Verified Allergy, Unknown, 01/21/19) FLORIDA HART MD Oct 29, 2020 14:45
--- NOTE | 2020-10-29 18:21 | IPNPDOC ---
Subjective Date Seen The patient was seen on 10/29/20. Subjective Chief Complaint/HPI Mrs. Kidd is a 70 year old female with schizoaffective disorder, seizure disorder, and hypothyroidism who present with AMS. This morning she was doing better. She is very conversive. Denies any chest pain or dyspnea. Patient tells me that she did not have any of her regular medications at home. She had her vitamins instead. Psychiatry, Dr. Salinas, evaluated patient. Recommends continued compliance with medication as she was improving. Patient does not need inpatient mental health unit or med adjustments at this time. I'll touch base with PFS on Saturday. Objective Physical Examination General Exam: Positive: Cooperative Eye Exam: Negative: Sclera icteric Neck Exam: Positive: Supple Chest Exam: Positive: Clear to auscultation Heart Exam: Positive: Rate Normal, Regular Rhythm Abdomen Exam: Positive: Normal bowel sounds, Soft; Negative: Tenderness Extremity Exam: Negative: Edema Skin Exam: Positive: Rash (bilateral lower legs with scabs covering ) Psych Exam: Positive: Other (poor historian, very conversive) Assessment /Plan Assessment Mrs. Kidd is a 70 year old female with schizoaffective disorder, seizure disorder, and hypothyroidism who present with AMS. Her TSH is becoming more elevated and her valproic acid level is low. Suspecting that her AMS may be from non-compliance to medications. She has history of psych hospital admissions. Through chart review, she was in [facility] in 2014. I reached out to psychiatry, Dr. Salinas for patient evaluation. Otherwise, she her vital signs are stable. There is no respiratory failure, renal failure, or liver failure. No hypercarbia or hyperammonemia. Normal leukocytes, negative CXR, negative UA, and afebrile. CT head is normal. Patient's altered mental status has improved with her current medical regimen. Patient does not meet inpatient mental health unit requirements and no new med adjustment needed. Patient will need continued compliance to her medical regimen. Will need to discuss with PFS on Saturday Plan/VTE VTE Prophylaxis Ordered?: Yes Plan 1. AMS secondary to noncompliance with medication -Improving while on medication -Psychiatry consulted, recommendations appreciated -No [facility], will need to speak with PFS on Saturday about disposition and medication compliance 2. Schizoaffective disorder -History of multiple psych admissions in the past. Last in chart was 2014. -Continue risperidone, sertraline, Keppra, Depakote, and benztropine -Psychiatry consulted, recommendation appreciated -Continue with current regimen 3. Seizure disorder -Depakote levels are low -Ordering Keppra levels -Seizure precautions -Continue Depakote and Keppra 4. Hypothyroidism -TSH steadily increasing -Potentially non-compliance -Restarted levothyroxine 5. Hypertension -Continue amlodipine 6. Hyperlipidemia -Continue atorvastatin 7. DVT ppx -Heparin subQ Disposition: Will need to discuss disposition with PFS on Saturday. VS, I&O, 24H, Fishbone Vital Signs/I&O Vital Signs Date Time Temp Pulse Resp B/P (MAP) Pulse Ox O2 Delivery O2 Flow Rate FiO2 10/29/20 14:00 97.7 72 17 117/45 (69) 94 Room Air I&O- Last 24 Hours up to 6 AM 10/29/20 06:00 Intake Total 1440 ml Output Total 0 ml Balance 1440 ml Laboratory Data 24H LABS Laboratory Tests 2 10/29/20 06:00: Nucleated Red Blood Cells % (auto) 0.0, Anion Gap 6L, Glomerular Filtration Rate 57.9, Calcium Level 8.3L, Magnesium Level 1.7L CBC/BMP Laboratory Tests 10/29/20 06:00 Microbiology Microbiology 10/27/20 Respiratory Virus Panel (PCR) ([facility]) - Final, Complete JORDIN ENG DO Oct 29, 2020 18:21
[2020-10-29] MEDS ORDERED: MAG SULF 1GM/100ML (MAG RUN) 1 GM in IV 1 EA IV ONE (19:00)
[2020-10-29] MEDS: risperiDONE 2 MG TAB PO SCH (21:05)
[2020-10-29 22:00] VITALS: BP 110/54
[2020-10-30] MEDS: LEVOTHYROXINE 100MCG TABLET (0.1MG) PO SCH (03:58)
[2020-10-30] MEDS: HEPARIN SOD (PORCINE) 5000UNITS/ML 1ML VIAL/SYRINGE SC SCH ×3 (05:17→21:48)
[2020-10-30 06:00] VITALS: BP 132/62
[2020-10-30 07:13] LABS: CALCIUM LEVEL 8.4 MG/DL (8.8-10.2); CREATININE FOR GFR 1.07 MG/DL (0.55-1.30); GLOMERULAR FILTRATION RATE 54.1 (>45); POTASSIUM SERUM 3.5 MEQ/L (3.5-5.1)
[2020-10-30] MEDS ORDERED: POTASSIUM CHLORIDE 10 MEQ SR TABLET PO ONE (08:00)
[2020-10-30] MEDS: ATORVASTATIN 10 MG TAB PO SCH (11:11)
[2020-10-30] MEDS: DIVALPROEX 500MG *ER* TAB PO SCH (11:11)
[2020-10-30] MEDS: DOCUSATE SODIUM 100MG CAPSULE PO SCH ×2 (11:11→21:47)
[2020-10-30] MEDS: MULTIVITAMINS/MINERALS THERAP 1 TAB PO SCH (11:11)
[2020-10-30] MEDS: FUROSEMIDE 20 MG TAB PO SCH ×2 (11:12→21:48)
[2020-10-30] MEDS: levETIRAcetam 250MG TABLET (KEPPRA) PO SCH ×2 (11:12→21:48)
[2020-10-30] MEDS: BENZTROPINE 0.5 MG TAB PO SCH (11:12)
[2020-10-30] MEDS: SERTRALINE 100 MG TAB PO SCH (11:12)
[2020-10-30] MEDS: PANTOPRAZOLE 40MG TAB (PROTONIX) PO SCH (11:12)
[2020-10-30] MEDS: amLODIPine 5 MG TAB PO SCH (11:20)
--- NOTE | 2020-10-30 13:54 | IPNPDOC ---
Subjective Date Seen The patient was seen on 10/30/20. Subjective Chief Complaint/HPI Mrs. Kidd is a 70 year old female with schizoaffective disorder, seizure disorder, and hypothyroidism who present with AMS. This morning, she was conversive and pleasant. Denies chest pain or dyspnea. Will order for PT Objective Physical Examination General Exam: Positive: Cooperative Eye Exam: Negative: Sclera icteric Neck Exam: Positive: Supple Chest Exam: Positive: Clear to auscultation Heart Exam: Positive: Rate Normal, Regular Rhythm Abdomen Exam: Positive: Normal bowel sounds, Soft; Negative: Tenderness Extremity Exam: Negative: Edema Skin Exam: Positive: Rash (bilateral lower legs with scabs covering ) Psych Exam: Positive: Other (poor historian, very conversive) Assessment /Plan Assessment Mrs. Kidd is a 70 year old female with schizoaffective disorder, seizure di sorder, and hypothyroidism who present with AMS. Her TSH is becoming more elevated and her valproic acid level is low. Suspecting that her AMS may be from non-compliance to medications. She has history of psych hospital admissions. Through chart review, she was in [facility] in 2014. I reached out to psychiatry, Dr. Salinas for patient evaluation. Otherwise, she her vital signs are stable. There is no respiratory failure, renal failure, or liver failure. No hypercarbia or hyperammonemia. Normal leukoc ytes, negative CXR, negative UA, and afebrile. CT head is normal. Patient's altered mental status has improved with her current medical regimen. Patient does not meet inpatient mental health unit requirements and no new med adjustment needed. Patient will need continued compliance to her medical re gist. [facility]. Will need to discuss with PFS on Saturday Plan/VTE VTE Prophylaxis Ordered?: Yes Plan 1. AMS secondary to noncompliance with medication -Improving while on medication -Psychiatry consulted, recommendations appreciated -No [facility], will need to speak with PFS on Saturday about disposition and medication compliance 2. Schizoaffective disorder -History of multiple psych admissions in the past. Last in chart was 2014. -Continue risperidone, sertraline, Keppra, Depakote, and benztropine -Psychiatry consulted, recommendation appreciated -Continue with current regimen 3. Seizure disorder -Depakote levels are low -Ordering Keppra levels -Seizure precautions -Continue Depakote and Keppra 4. Hypothyroidism -TSH steadily increasing -Potentially non-compliance -Restarted levothyroxine 5. Hypertension -Continue amlodipine 6. Hyperlipidemia -Continue atorvastatin 7. DVT ppx -Heparin subQ Disposition: Will need to discuss disposition with PFS on Saturday. VS, I&O, 24H, Fishbone Vital Signs/I&O Vital Signs Date Time Temp Pulse Resp B/P (MAP) Pulse Ox O2 Delivery O2 Flow Rate FiO2 10/30/20 11:20 79 153/71 10/30/20 06:00 98.0 17 92 Room Air I&O- Last 24 Hours up to 6 AM 10/30/20 06:00 Intake Total 1940 ml Balance 1940 ml Laboratory Data 24H LABS Laboratory Tests 2 10/30/20 06:04: Anion Gap 7L, Glomerular Filtration Rate 54.1, Calcium Level 8.4L, Magnesium Level 2.0 CBC/BMP Laboratory Tests 10/30/20 06:04 Microbiology Microbiology 10/27/20 Respiratory Virus Panel (PCR) ([facility]) - Final, Complete JORDIN ENG DO Oct 30, 2020 13:54
[2020-10-30 14:00] VITALS: BP 144/86
[2020-10-30] MEDS: risperiDONE 2 MG TAB PO SCH (21:47)
[2020-10-30 22:00] VITALS: BP 169/79
[2020-10-31] MEDS: LEVOTHYROXINE 100MCG TABLET (0.1MG) PO SCH (02:33)
[2020-10-31] MEDS: HEPARIN SOD (PORCINE) 5000UNITS/ML 1ML VIAL/SYRINGE SC SCH ×3 (05:28→21:13)
[2020-10-31 06:00] VITALS: BP 114/62
[2020-10-31 06:15] LABS: HEMATOCRIT 41.5 % (36.0-47.0); HEMOGLOBIN 13.3 g/dl (12.0-15.5); MEAN CORPUSCULAR HEMOGLOBIN 29.5 pg (27.0-33.0); PLATELET COUNT, AUTOMATED 195 10^3/uL (150-450); RED BLOOD COUNT 4.51 10^6/uL (4.00-5.40); WHITE BLOOD COUNT 5.1 10^3/uL (4.0-10.0)
[2020-10-31 06:25] LABS: CALCIUM LEVEL 8.5 MG/DL (8.8-10.2); CREATININE FOR GFR 1.08 MG/DL (0.55-1.30); GLOMERULAR FILTRATION RATE 53.5 (>45); POTASSIUM SERUM 3.8 MEQ/L (3.5-5.1)
[2020-10-31] MEDS: ATORVASTATIN 10 MG TAB PO SCH (09:07)
[2020-10-31] MEDS: MULTIVITAMINS/MINERALS THERAP 1 TAB PO SCH (09:07)
[2020-10-31] MEDS: DOCUSATE SODIUM 100MG CAPSULE PO SCH ×2 (09:07→21:14)
[2020-10-31] MEDS: SERTRALINE 100 MG TAB PO SCH (09:07)
[2020-10-31] MEDS: PANTOPRAZOLE 40MG TAB (PROTONIX) PO SCH (09:07)
[2020-10-31] MEDS: BENZTROPINE 0.5 MG TAB PO SCH (09:07)
[2020-10-31] MEDS: FUROSEMIDE 20 MG TAB PO SCH ×2 (09:07→21:14)
[2020-10-31] MEDS: amLODIPine 5 MG TAB PO SCH (09:08)
[2020-10-31] MEDS: levETIRAcetam 250MG TABLET (KEPPRA) PO SCH ×2 (09:08→21:13)
[2020-10-31] MEDS: DIVALPROEX 500MG *ER* TAB PO SCH (09:08)
[2020-10-31 14:00] VITALS: BP 117/66
[2020-10-31] MEDS ORDERED: LORazepam 2 MG/ML VIAL IV STA (20:24)
[2020-10-31] MEDS ORDERED: LORazepam 0.5 MG TAB PO PRN (20:35)
[2020-10-31] MEDS: risperiDONE 2 MG TAB PO SCH (21:14)
[2020-10-31 21:49] LABS: ALBUMIN 3.2 GM/DL (3.2-5.2); BILIRUBIN,TOTAL 0.3 MG/DL (0.2-1.0); CALCIUM LEVEL 9.1 MG/DL (8.8-10.2); CREATININE FOR GFR 1.25 MG/DL (0.55-1.30); GLOMERULAR FILTRATION RATE 45.2 (>45); POTASSIUM SERUM 4.1 MEQ/L (3.5-5.1); TOTAL PROTEIN 7.4 GM/DL (6.4-8.2)
[2020-10-31 22:00] VITALS: BP 142/87
--- NOTE | 2020-10-31 22:04 | IPNPDOC ---
Subjective Date Seen The patient was seen on 10/31/20. Subjective Chief Complaint/HPI Mrs. Kidd is a 70 year old female with schizoaffective disorder, seizure disorder, and hypothyroidism who present with AMS. She was seen, later in the morning. She is very cheerful and constantly speaks. PFS attempting to reach patient's adult protective service case management social worker, but was not able to. Objective Physical Examination General Exam: Positive: Cooperative Eye Exam: Negative: Sclera icteric Neck Exam: Positive: Supple Chest Exam: Positive: Clear to auscultation Heart Exam: Positive: Rate Normal, Regular Rhythm Abdomen Exam: Positive: Normal bowel sounds, Soft; Negative: Tenderness Extremity Exam: Negative: Edema Skin Exam: Positive: Rash (bilateral lower legs with scabs covering ) Psych Exam: Positive: Other (poor historian, very conversive) Assessment /Plan Assessment Mrs. Kidd is a 70 year old female with schizoaffective disorder, seizure disorder, and hypothyroidism who present with AMS. Her TSH is becoming more elevated and her valproic acid level is low. Suspecting that her AMS may be from non-compliance to medications. She has history of psych hospital admissions. Through chart review, she was in [facility] in 2014. I reached out to psychiatry, Dr. Salinas for patient evaluation. Otherwise, she her vital signs are stable. There is no respiratory failure, r enal failure, or liver failure. No hypercarbia or hyperammonemia. Normal leukocytes, negative CXR, negative UA, and afebrile. CT head is normal. Patient's altered mental status has improved with her current medical regimen. Patient does not meet inpatient mental health unit requirements and no new med adjustment needed. Patient will need continued compliance to her medical regimen. Working with PFS for safe discharge Plan/VTE VTE Prophylaxis Ordered?: Yes Plan 1. AMS secondary to noncompliance with medication -Improving while on medication -Psychiatry consulted, recommendations appreciated -No [facility], working with PFS with disposition and medication compliance 2. Schizoaffective disorder -History of multiple psych admissions in the past. Last in chart was 2014. -Continue risperidone, sertraline, Keppra, Depakote, and benztropine -Psychiatry consulted, recommendation appreciated -Continue with current regimen 3. Seizure disorder -Depakote levels are low -Ordering Keppra levels -Seizure precautions -Continue Depakote and Keppra 4. Hypothyroidism -TSH steadily increasing -Potentially non-compliance -Restarted levothyroxine 5. Hypertension -Continue amlodipine 6. Hyperlipidemia -Continue atorvastatin 7. DVT ppx -Heparin subQ Disposition: working with PFS on disposition VS, I&O, 24H, Alis Vital Signs/I&O Vital Signs Date Time Temp Pulse Resp B/P (MAP) Pulse Ox O2 Delivery O2 Flow Rate FiO2 10/31/20 14:00 98.0 91 18 117/66 (83) 99 Room Air I&O- Last 24 Hours up to 6 AM 10/31/20 06:00 Intake Total 1660 ml Balance 1660 ml Laboratory Data 24H LABS Laboratory Tests 2 10/31/20 05:56: Nucleated Red Blood Cells % (auto) 0.0, Anion Gap 9, Glomerular Filtration Rate 53.5, Calcium Level 8.5L 10/31/20 20:58: Anion Gap 12, Glomerular Filtration Rate 45.2, Calcium Level 9.1, Total Bilirubin 0.3, Aspartate Amino Transf (AST/SGOT) 52H, Alanine Aminotransferase (ALT/SGPT) 46, Alkaline Phosphatase 70, Ammonia 24, Total Protein 7.4, Albumin 3.2, Albumin/Globulin Ratio 0.8L CBC/BMP Laboratory Tests 10/31/20 05:56 10/31/20 20:58 Microbiology Microbiology 10/27/20 Respiratory Virus Panel (PCR) ([facility]) - Final, Complete JORDIN ENG DO Oct 31, 2020 22:04
[2020-11-01] MEDS: HEPARIN SOD (PORCINE) 5000UNITS/ML 1ML VIAL/SYRINGE SC SCH ×2 (05:34→14:14)
[2020-11-01 06:00] VITALS: BP 150/84
[2020-11-01] MEDS ORDERED: LEVOTHYROXINE 100MCG TABLET (0.1MG) PO SCH (06:00)
[2020-11-01] MEDS: PANTOPRAZOLE 40MG TAB (PROTONIX) PO SCH (09:37)
[2020-11-01] MEDS: BENZTROPINE 0.5 MG TAB PO SCH (09:37)
[2020-11-01] MEDS: FUROSEMIDE 20 MG TAB PO SCH (09:37)
[2020-11-01] MEDS: SERTRALINE 100 MG TAB PO SCH (09:37)
[2020-11-01] MEDS: ATORVASTATIN 10 MG TAB PO SCH (09:37)
[2020-11-01] MEDS: DIVALPROEX 500MG *ER* TAB PO SCH (09:37)
[2020-11-01] MEDS: DOCUSATE SODIUM 100MG CAPSULE PO SCH (09:37)
[2020-11-01] MEDS: levETIRAcetam 250MG TABLET (KEPPRA) PO SCH (09:37)
[2020-11-01] MEDS: MULTIVITAMINS/MINERALS THERAP 1 TAB PO SCH (09:37)
[2020-11-01 09:38] VITALS: BP 150/85
[2020-11-01] MEDS: amLODIPine 5 MG TAB PO SCH (09:38)
[2020-11-01 14:00] VITALS: BP 113/56
[2020-11-01] MEDS ORDERED: SYNT100T PO (15:04)
[2020-11-01] MEDS ORDERED: BENZ0.5T23 PO (15:04)
[2020-11-01] MEDS ORDERED: LEVE500T5 PO (15:04)
[2020-11-01] MEDS ORDERED: NORV5TAB PO (15:04)
[2020-11-01] MEDS ORDERED: DIVA500T9 PO (15:04)
[2020-11-01] MEDS ORDERED: RISP-11 PO (15:04)
[2020-11-01] MEDS ORDERED: FURO20TA2 PO (15:04)
[2020-11-01] MEDS ORDERED: ZOLO100T PO (15:04)
--- NOTE | 2020-11-01 15:05 | DS.PDOC ---
Discharge Summary General Date of Admission Oct 29, 2020 at 22:38 Date of Discharge 11/01/20 Discharge Summary PROCEDURES PERFORMED DURING STAY: [None]. ADMITTING DIAGNOSES: 1. . DISCHARGE DIAGNOSES: 1. . COMPLICATIONS/CHIEF COMPLAINT: Ams,Metabolic Encephalopathy. HISTORY OF PRESENT ILLNESS: . HOSPITAL COURSE: . DISCHARGE MEDICATIONS: Please see below. ALLERGIES: Please see below. PHYSICAL EXAMINATION ON DISCHARGE: VITAL SIGNS: Please see below. GENERAL: HEENT: NECK: CARDIOVASCULAR EXAMINATION: RESPIRATORY EXAMINATION: ABDOMINAL EXAMINATION: EXTREMITIES: SKIN: NEUROLOGICAL EXAMINATION: PSYCHIATRIC EXAMINATION: LABORATORY DATA: Please see below. IMAGING: PROGNOSIS: ACTIVITY: [As tolerated]. DIET: DISCHARGE PLAN: DISPOSITION: . DISCHARGE INSTRUCTIONS: 1. . ITEMS TO FOLLOWUP ON ON OUTPATIENT: 1. . DISCHARGE CONDITION: [Stable]. TIME SPENT ON DISCHARGE: Greater than minutes. Vital Signs/I&Os Vital Signs Date Time Temp Pulse Resp B/P (MAP) Pulse Ox O2 Delivery O2 Flow Rate FiO2 11/01/20 14:00 97.6 80 16 113/56 (75) 98 Room Air I&O- Last 24 Hours up to 6 AM 11/01/20 06:00 Intake Total 1620 ml Output Total 0 ml Balance 1620 ml Laboratory Data Labs 24H Laboratory Tests 2 10/31/20 20:58: Anion Gap 12, Glomerular Filtration Rate 45.2, Calcium Level 9.1, Total Bilirubin 0.3, Aspartate Amino Transf (AST/SGOT) 52H, Alanine Aminotransferase (ALT/SGPT) 46, Alkaline Phosphatase 70, Ammonia 24, Total Protein 7.4, Albumin 3.2, Albumin/Globulin Ratio 0.8L CBC/BMP Laboratory Tests 10/31/20 20:58 Microbiology Microbiology 10/27/20 Respiratory Virus Panel (PCR) ([facility]) - Final, Complete Discharge Medications Scheduled Amlodipine Besylate (Norvasc) 5 Mg Tab, 5 MG PO DAILY Atorvastatin Calcium (Atorvastatin Calcium) 10 Mg Tab, 10 MG PO DAILY, (Reported) Benztropine Mesylate (Benztropine Mesylate) 0.5 Mg Tablet, 0.5 MG PO DAILY Calcium Carbonate/Vitamin D3 (Calcium 500-Vit D3 200 Tablet) 1 Each Tablet, 1 TAB PO DAILY, (Reported) Cetirizine HCl (Cetirizine HCl) 10 Mg Tablet, 10 MG PO QHS, (Reported) Divalproex Sodium (Divalproex Sodium ER) 500 Mg Tab.er.24h, 1,000 MG PO DAILY Furosemide (Furosemide) 20 Mg Tablet, 20 MG PO BID Levothyroxine Sodium (Synthroid) 100 Mcg Tablet, 100 MCG PO DAILY TAKES AT 0300 Multivitamins (Thera M Plus Tablet) 1 Each Tablet, 1 TAB PO DAILY, (Reported) Pantoprazole Sodium (Protonix) 40 Mg Tablet.dr, 40 MG PO DAILY, (Reported) Potassium Chloride (Potassium Chloride) 10 Meq Capsule.er, 10 MEQ PO DAILY, (Reported) Risperidone (Risperidone) 4 Mg Tab, 4 MG PO QHS Sertraline Hcl (Zoloft) 100 Mg Tablet, 100 MG PO DAILY levETIRAcetam (levETIRAcetam) 500 Mg Tablet, 500 MG PO BID Scheduled PRN Acetaminophen (Tylenol Extra Strength) 500 Mg Tablet, 500 MG PO BID PRN for PAIN, (Reported) Meclizine HCl (Meclizine HCl) 25 Mg Tablet, 25 MG PO TID PRN for DIZZINESS, (Reported) Miscellaneous Medications [Patient Comment] , (Reported) MED REC COMPLETED VIA EXTERNAL MED HISTORY DUE TO INABILITY OF TALKING TO PATIENT Allergies Coded Allergies: Sulfa (Sulfonamide Antibiotics) (Verified Allergy, Unknown, 01/21/19) aspirin (Verified Allergy, Unknown, 01/21/19) BIANCA KATHLEEN MD Nov 01, 2020 15:05
== END 2020-11-01 17:32 | disposition home health service (06) | DRG 948 ==
LOC: M ED 17:54 → M ED INP 17:55 → ENRESERV 10-28 00:16 → M MSPAV 10-28 01:45 → OBSVTOIN 10-29 22:38
PROVIDERS: ADMIT Family Medicine; ATTEND Family Medicine
DX: R41.82 Altered mental status, unspecified (principal); N17.9 Acute kidney failure, unspecified; F25.0 Schizoaffective disorder, bipolar type; I10 Essential (primary) hypertension; K21.9 Gastro-esophageal reflux disease without esophagitis; R42 Dizziness and giddiness; E03.9 Hypothyroidism, unspecified; E78.5 Hyperlipidemia, unspecified; M81.0 Age-related osteoporosis without current pathological fracture; G20 Parkinson's disease; G40.909 Epilepsy, unspecified, not intractable, without status epilepticus; F41.8 Other specified anxiety disorders; Z91.14 Patient's other noncompliance with medication regimen; Z79.899 Other long term (current) drug therapy; Z88.2 Allergy status to sulfonamides; Z88.6 Allergy status to analgesic agent; M54.9 Dorsalgia, unspecified; R60.0 Localized edema; F31.9 Bipolar disorder, unspecified; F43.10 Post-traumatic stress disorder, unspecified; Z20.822 Contact with and (suspected) exposure to COVID-19

== ENCOUNTER 2020-11-04 13:52 | Inpatient (IN) | payer MEDICARE, MEDICAID ==
[2020-11-03 20:40] VITALS: BP 171/71
[~2020-11-04] VITALS: Ht 162.6 cm; Wt 83.5 kg
[~2020-11-04 13:52] MED LIST changes: +PATIENT COMMENT; +ZOLO100T PO
[2020-11-04 15:08] LABS: VENOUS BASE EXCESS 3.4 (-2.0-2.0); VENOUS HCO3 29.8 MEQ/L (23.0-27.0); VENOUS O2 SATURATION 86.9 % (60.0-80.0); VENOUS PARTIAL PRESSURE CO2 52.6 mmHg (38.0-50.0); VENOUS PARTIAL PRESSURE O2 54.3 mmHg (30.0-50.0); VENOUS PH 7.371 UNITS (7.330-7.430); VENOUS STANDARD HCO3 27.3 MEQ/L; VENOUS TOTAL CO2 31.4 MEQ/L (24.0-28.0)
[2020-11-04 15:09] LABS: BASO % 0.6 % (0.0-1.0); EOS # 0.1 10^3/uL (0.0-0.5); EOS % 0.8 % (0.0-3.0); HEMATOCRIT 38.3 % (36.0-47.0); HEMOGLOBIN 12.2 g/dl (12.0-15.5); LYMPH # 0.9 10^3/uL (1.5-5.0); LYMPH % 14.2 % (24.0-44.0); MEAN CORPUSCULAR HEMOGLOBIN 29.3 pg (27.0-33.0); MEAN CORPUSCULAR HGB CONC 31.9 g/dl (32.0-36.5); MEAN CORPUSCULAR VOLUME 92.1 fl (80.0-96.0); MONO # 0.9 10^3/uL (0.0-0.8); NEUTROPHILS # 4.6 10^3/uL (1.5-8.5); NEUTROPHILS % 69.9 % (36.0-66.0); PLATELET COUNT, AUTOMATED 194 10^3/uL (150-450); RED BLOOD COUNT 4.16 10^6/uL (4.00-5.40); WHITE BLOOD COUNT 6.6 10^3/uL (4.0-10.0)
--- NOTE | 2020-11-04 15:22 | REP ---
INDICATION: Drug Overdose. COMPARISON: None. TECHNIQUE: Single portable AP view of the chest was performed. FINDINGS: There is no acute infiltrate or pulmonary edema. There is mild cardiomegaly. The mediastinal silhouette is unchanged. IMPRESSION: No acute pulmonary disease. <Electronically signed by Mamadou Jett > 11/04/20 [id number]
[2020-11-04] MEDS ORDERED: DIVA500T9 PO (15:25)
[2020-11-04] MEDS ORDERED: FURO20TA2 PO (15:25)
[2020-11-04] MEDS ORDERED: NORV5TAB PO (15:25)
[2020-11-04] MEDS ORDERED: KEPP1TAB PO (15:25)
[2020-11-04] MEDS ORDERED: BENZ0.5T23 PO (15:25)
[2020-11-04] MEDS ORDERED: RISP-11 PO (15:25)
[2020-11-04] MEDS ORDERED: ZOLO100T PO (15:25)
[2020-11-04] MEDS ORDERED: SYNT100T PO (15:25)
[2020-11-04 15:32] LABS: VALPROIC ACID (DEPAKOTE) 30.7 UG/ML (50.0-100.0)
[2020-11-04 15:42] LABS: RSV AMPLIFICATION NEGATIVE (NEGATIVE)
[2020-11-04 15:43] LABS: ACETAMINOPHEN LEVEL < 2.0 UG/ML (10.0-30.0); ALBUMIN 3.5 GM/DL (3.2-5.2); ALT/SGPT 45 U/L (12-78); BILIRUBIN,DIRECT 0.1 MG/DL (0.0-0.2); BILIRUBIN,TOTAL 0.3 MG/DL (0.2-1.0); BLOOD UREA NITROGEN 26 MG/DL (7-18); CALCIUM LEVEL 9.3 MG/DL (8.8-10.2); CARBON DIOXIDE LEVEL 33 MEQ/L (21-32); CHLORIDE LEVEL 101 MEQ/L (98-107); CPK CREATINE PHOSPHOKINASE 82 U/L (26-192); CREATININE FOR GFR 1.28 MG/DL (0.55-1.30); ETHYL ALCOHOL (ETHANOL) < 0.003 % (0.000-0.010); GLUCOSE, FASTING 104 MG/DL (70-100); POTASSIUM SERUM 3.9 MEQ/L (3.5-5.1); SALICYLATE LEVEL < 1.7 MG/DL (5.0-30.0); SODIUM LEVEL 139 MEQ/L (136-145); TOTAL PROTEIN 7.7 GM/DL (6.4-8.2)
[2020-11-04 15:45] LABS: OSMOLALITY SERUM 293 MOSM/KG (280-301)
[2020-11-04] MEDS ORDERED: MECLIZINE 25 MG TABLET PO PRN (18:50)
[2020-11-04] MEDS ORDERED: ACETAMINOPHEN 500 MG TAB PO PRN (18:50)
--- NOTE | 2020-11-04 19:57 | ECGEPIP ---
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
--- NOTE | 2020-11-04 19:59 | HPE ---
HISTORY AND PHYSICAL DATE OF ADMISSION: 11/04/2020 CHIEF COMPLAINT: "Rambling with pill bottles at home." HISTORY OF PRESENT ILLNESS: This is a 70-year-old female with history of bipolar, depression, Parkinson's, hypothyroid, hyperlipidemia, osteoporosis, reflux, vertigo, was found in her apartment with altered mental status with large pupils and scattered pills bottles rambling "I wish I would ." The patient was brought in for further evaluation. History could not be obtained from the patient due to rambling and tangential speech. Poison control was contacted. Urine toxicology screen showed low valproic acid, negative salicylate, negative acetaminophen level. TSH was elevated at 6. Ethyl alcohol was negative. Per Poison Control, the patient is to have telemetry monitoring as well as serial EKGs. Hospitalist was called to admit for altered mental status secondary to possible drug overdose although levels are all low or negative. PAST MEDICAL HISTORY: 1. Bipolar disorder. 2. Reflux. 3. Hypertension. 4. Seizures. 5. Schizoaffective disorder. 6. Seasonal allergies. 7. Hyperlipidemia. 8. Vertigo. 9. Hypothyroidism. 10. Anxiety. 11. Head trauma, 2-1/2 years of age. 12. Dementia. 13. Headaches. 14. Migraine. 15. Aneurysm. 16. Hyperlipidemia. 17. Osteoporosis. 18. Osteoarthritis. 19. Back injury with chronic back pain. 20. Perforated stomach ulcer in 1989. 21. 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 PAST SURGICAL HISTORY: 1. Repaired perforated stomach ulcer. 2. Total abdominal hysterectomy with bilateral salpingo-oophorectomy due to endometrial cancer by Dr. Mancera in 2010. 3. Right breast biopsy x2 for benign calcifications in 2020. 4. Left eyelid repair during childhood. 5. EMB/ECC by Dr. Moctezuma, 2009. 6. Colonoscopy, 2001. ALLERGIES: SULFA AND ASPIRIN. HOME MEDICATIONS: 1. Acetaminophen 500 b.i.d. as needed for pain. 2. Norvasc 5 daily. 3. Atorvastatin 10 daily. 4. Benztropine 0.5 daily. 5. Calcium, vitamin D one tablet daily. 6. Cetirizine 10 daily. 7. Divalproex sodium 1 gm daily. 8. Lasix 20 b.i.d. 9. Keppra 500 b.i.d. 10. Synthroid 100 mcg daily. 11. Meclizine 25 t.i.d. 12. Multivitamin 1 tablet daily. 13. Protonix 40 mg daily. 14. Sertraline 100 mg daily 15. Potassium 10 mEq daily. SOCIAL HISTORY: Denies recreational drug use, alcohol or tobacco abuse. FAMILY HISTORY: Maternal aunt with pancreatic cancer. REVIEW OF SYSTEMS: Could not be obtained as the patient is rambling and tangential, unable to focus on review of systems with altered mental status. PHYSICAL EXAMINATION: VITAL SIGNS: Temperature 98.4, pulse 93, respiratory rate 20, blood pressure 166/91, 100% on room air. GENERAL: The patient is awake, alert and oriented to herself, place and time. She is answering questions but inappropriate and rambles, unable to focus on the questions. No facial asymmetry. No pallor, icterus, jaundice, moist mucous membranes, poor dentition. No JVD, thyromegaly, cervical lymphadenopathy. LUNGS: Clear to auscultation, no wheezing, rales or rhonchi. HEART: S1, S2, sinus rhythm. ABDOMEN: Soft, nontender nondistended. Positive bowel sounds. EXTREMITIES: Trace edema bilaterally. Multiple excoriations. Erythema of bilateral dorsum of the feet. LABORATORY DATA: Coronavirus negative. Respiratory panel negative. White count 6.6, hemoglobin 12.2, hematocrit 38, platelet count 194, 69% neutrophils. Sodium 139, potassium 3.9, chloride 101, bicarb 33, BUN 26, creatinine 1.2, glucose 104, lactic acid 1.3. TSH 6.02, T bili 0.3, direct bili 0.1, AST 27, ALT 45, alk phos 72, ammonia 13. Chest x-ray 11/04/2020: No acute cardiopulmonary disease. ASSESSMENT AND PLAN: A 70-year-old brought into emergency room after being found with dilated pupils and pill bottles all over saying that "I wish I would ." IMPRESSION: 1. Acute toxic encephalopathy secondary to possible drug ingestion. 2. History of schizoaffective disorder. 3. History of bipolar disorder with anxiety and depression. 4. Hypothyroidism. 5. History of hypertension. 6. Seizure disorder. 7. Hyperlipidemia. 8. Vertigo. 9. Reflux. 10. Hypothyroidism. 11. Dementia. 12. History of migraines and aneurysm. 13. Hyperlipidemia. 14. Osteoarthritis. 15. History of perforated stomach ulcer. 16. History of endometrial cancer, status post total abdominal hysterectomy, bilateral salpingo-oophorectomy. 17. Suicidal ideation. PLAN: The patient will be admitted for observation, status post drug ingestion. Workup, however, currently does not show any elevated toxic substances. She is rambling at the bedside but at times is appropriate. She will be kept under telemetry overnight with serial 12-lead EKGs to rule out prolonged QT syndrome. The patient will be kept on her blood pressure medications due to her blood pressure being 166 at the bedside. She otherwise is asymptomatic and denies any acute ischemic complaints. The patient has been started on a 2 gm sodium diet, appears to be stable with no signs of aspiration. DVT prophylaxis with compression stockings. For the bilateral lower extremity fungal infection, she will be given topical antifungals. Discharge in the morning after psychiatric referral. Sitter will be placed. [facility]
--- NOTE | 2020-11-04 20:04 | ECGEPIP ---
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
[2020-11-04 20:40] VITALS: BP 171/71
[2020-11-04] MEDS: CETIRIZINE (ZyrTEC) 10 MG TAB PO SCH ×2 (21:00→21:54)
[2020-11-04] MEDS: BACITRACIN OINTMENT 30GM TUBE TOP SCH ×2 (21:00→21:53)
[2020-11-04] MEDS: MYCOLOG CREAM 15 GM (NYSTATIN/TRIAMCINOLONE) TOP SCH ×2 (21:00→21:54)
[2020-11-04] MEDS: levETIRAcetam 250MG TABLET (KEPPRA) PO SCH (21:54)
[2020-11-05 03:19] LABS: APPEARANCE, URINE CLEAR (CLEAR); BACTERIA, URINE AUTO NEGATIVE (NEGATIVE); BILIRUBIN, URINE AUTO NEGATIVE (NEGATIVE); BLOOD, URINE BLOOD NEGATIVE (NEGATIVE); COLOR, URINE YELLOW (YELLOW); GLUCOSE, URINE (UA) AUTO NEGATIVE (NEGATIVE); KETONE, URINE AUTO TRACE mg/dL (NEGATIVE); LEUKOCYTE ESTERASE, URINE AUTO NEGATIVE (NEGATIVE); NITRITE, URINE AUTO NEGATIVE (NEGATIVE); PROTEIN, URINE AUTO 1+ mg/dL (NEGATIVE); RBC, URINE AUTO 1 /HPF (0-3); SPECIFIC GRAVITY URINE AUTO 1.012 (1.002-1.035); SQUAMOUS EPITHELIAL CELL UR AU 0 /HPF (0-6); UROBILINOGEN, URINE AUTO 0.2 mg/dL (0.0-2.0); WBC, URINE AUTO 1 /HPF (0-3)
[2020-11-05 03:42] LABS: AMPHETAMINES LEVEL URINE NEGATIVE (NEGATIVE); BARBITURATES URINE NEGATIVE (NEGATIVE); BENZODIAZEPINES URINE NEGATIVE (NEGATIVE); CANNABINOIDS URINE NEGATIVE (NEGATIVE); COCAINE METABOLITE URINE NEGATIVE (NEGATIVE); METHADONE URINE NEGATIVE (NEGATIVE); OPIATES URINE NEGATIVE (NEGATIVE); PHENCYCLIDINE URINE NEGATIVE (NEGATIVE)
[2020-11-05 06:00] VITALS: BP 131/60
[2020-11-05] MEDS ORDERED: LEVOTHYROXINE 100MCG TABLET (0.1MG) PO SCH (06:00)
[2020-11-05 06:24] LABS: BASO # 0.1 10^3/uL (0.0-0.2); BASO % 0.7 % (0.0-1.0); EOS # 0.1 10^3/uL (0.0-0.5); EOS % 0.9 % (0.0-3.0); HEMATOCRIT 36.8 % (36.0-47.0); HEMOGLOBIN 11.9 g/dl (12.0-15.5); LYMPH % 15.4 % (24.0-44.0); MEAN CORPUSCULAR HEMOGLOBIN 29.8 pg (27.0-33.0); MEAN CORPUSCULAR HGB CONC 32.3 g/dl (32.0-36.5); MEAN CORPUSCULAR VOLUME 92.2 fl (80.0-96.0); MONO % 14.5 % (2.0-8.0); NEUTROPHILS # 4.6 10^3/uL (1.5-8.5); NEUTROPHILS % 68.2 % (36.0-66.0); PLATELET COUNT, AUTOMATED 190 10^3/uL (150-450); RED BLOOD COUNT 3.99 10^6/uL (4.00-5.40); WHITE BLOOD COUNT 6.8 10^3/uL (4.0-10.0)
[2020-11-05 06:47] LABS: CALCIUM LEVEL 8.7 MG/DL (8.8-10.2); CREATININE FOR GFR 0.99 MG/DL (0.55-1.30); GLOMERULAR FILTRATION RATE 59.2 (>45); POTASSIUM SERUM 3.7 MEQ/L (3.5-5.1)
[2020-11-05] MEDS ORDERED: MULTIVITAMINS/MINERALS THERAP 1 TAB PO SCH (09:00)
[2020-11-05] MEDS ORDERED: PANTOPRAZOLE 40MG TAB (PROTONIX) PO SCH (09:00)
[2020-11-05] MEDS: levETIRAcetam 250MG TABLET (KEPPRA) PO SCH (09:00)
[2020-11-05] MEDS ORDERED: FUROSEMIDE 20 MG TAB PO SCH (09:00)
[2020-11-05] MEDS: BACITRACIN OINTMENT 30GM TUBE TOP SCH ×2 (09:15→22:08)
[2020-11-05] MEDS: MYCOLOG CREAM 15 GM (NYSTATIN/TRIAMCINOLONE) TOP SCH ×2 (09:15→22:08)
[2020-11-05] MEDS ORDERED: PANTOPRAZOLE 40MG VIAL (C9113 PER 1) IV ONE (12:00)
[2020-11-05] MEDS: levETIRAcetam INJection 500 MG in D5W MINI-BAG PLUS 100 ML IV SCH ×2 (12:32→20:46)
--- NOTE | 2020-11-05 13:13 | IPN ---
PROGRESS NOTE DATE: 11/05/2020 SUBJECTIVE: The patient did not sleep last night and was awake all night. She is rambling at the bedside. According to the sitter that arrived at 7 a.m. this morning, the patient has been unchanged and is making no sense at all. Occasionally she will answer a questions appropriately. The patient currently denies any suicidal ideation or plan. Denied wanting to hurt herself. She has no pain, pressure, tightness, shortness of breath, nausea, or vomiting and tolerating her breakfast well. OBJECTIVE: VITAL SIGNS: Temperature 98.4, pulse 94, respiratory rate 17, blood pressure 131/60, 97% on room air. GENERAL: The patient is awake, alert, and oriented to herself. She answers questions with pressured speech. Slightly agitated, but not combative. She is rambling and difficult to speak to. LUNGS: Clear to auscultation. No wheezing, rales, or rhonchi. HEART: S1, S2. Sinus rhythm. ABDOMEN: Soft, nontender, and nondistended with positive bowel sounds. EXTREMITIES: Some erythema on the dorsum of her feet. Excoriations on bilateral shins. No signs of infection. DIAGNOSTIC STUDIES: Laboratory data and imaging studies have been reviewed. ASSESSMENT: This is a 70-year-old female admitted on 11/04, after being found by neighbors to be rambling with altered mental status found to have open pill boxes in her apartment and brought in for further evaluation. Poison control recommended observation. Urine toxicology screen was negative. The patient's Tylenol level and Keppra level are low. IMPRESSION: 1. Acute encephalopathy secondary to drug ingestion. 2. Drug ingestion, intentional. 3. Suicidal statement. 4. History of bipolar disorder. 5. Hypertension. PLAN: The patient is medically stable. Psychiatrist, Dr. Ferreira, has been consulted to assist in determine if the patient will need time in the inpatient mental health unit for titration of her medication versus home with services. DANGELO
[2020-11-05] MEDS: LEVOTHYROXINE 100MCG (0.1MG) VIAL IV SCH (13:16)
[2020-11-05 14:00] VITALS: BP 125/56
[2020-11-05] MEDS: risperiDONE 2 MG TAB PO SCH (20:46)
[2020-11-05] MEDS: CETIRIZINE (ZyrTEC) 10 MG TAB PO SCH (21:00)
[2020-11-05 22:00] VITALS: BP 138/61
[2020-11-06 06:00] VITALS: BP 163/87
[2020-11-06 06:06] LABS: BASO # 0.1 10^3/uL (0.0-0.2); EOS # 0.2 10^3/uL (0.0-0.5); EOS % 3.4 % (0.0-3.0); HEMATOCRIT 39.9 % (36.0-47.0); HEMOGLOBIN 12.9 g/dl (12.0-15.5); LYMPH # 1.1 10^3/uL (1.5-5.0); LYMPH % 21.5 % (24.0-44.0); MEAN CORPUSCULAR HEMOGLOBIN 30.3 pg (27.0-33.0); MEAN CORPUSCULAR HGB CONC 32.3 g/dl (32.0-36.5); MEAN CORPUSCULAR VOLUME 93.7 fl (80.0-96.0); MONO # 0.6 10^3/uL (0.0-0.8); MONO % 12.6 % (2.0-8.0); NEUTROPHILS # 3.1 10^3/uL (1.5-8.5); NEUTROPHILS % 60.9 % (36.0-66.0); PLATELET COUNT, AUTOMATED 188 10^3/uL (150-450); RED BLOOD COUNT 4.26 10^6/uL (4.00-5.40); WHITE BLOOD COUNT 5.1 10^3/uL (4.0-10.0)
[2020-11-06 06:27] LABS: GLOMERULAR FILTRATION RATE 58.5 (>45); POTASSIUM SERUM 4.3 MEQ/L (3.5-5.1)
[2020-11-06] MEDS: LEVOTHYROXINE 100MCG (0.1MG) VIAL IV SCH (08:26)
[2020-11-06] MEDS: PANTOPRAZOLE 40MG VIAL (C9113 PER 1) IV SCH (08:27)
[2020-11-06] MEDS: levETIRAcetam INJection 500 MG in D5W MINI-BAG PLUS 100 ML IV SCH ×2 (08:27→20:56)
[2020-11-06] MEDS: MYCOLOG CREAM 15 GM (NYSTATIN/TRIAMCINOLONE) TOP SCH ×2 (08:28→21:06)
[2020-11-06] MEDS: BACITRACIN OINTMENT 30GM TUBE TOP SCH ×2 (08:28→21:06)
[2020-11-06] MEDS: NITROGLYCERIN 2% OINT 1 GM *U/D* PKT TOP SCH ×2 (10:58→21:01)
--- NOTE | 2020-11-06 13:12 | IPN ---
PROGRESS NOTE DATE: 11/06/2020 SUBJECTIVE: The patient remains manic, not sleeping, and rambling at the bedside, not combative, still able to be controlled. She currently has refused to eat this morning and take her oral medications since yesterday. She only had a banana yesterday. OBJECTIVE: PHYSICAL EXAMINATION: VITAL SIGNS: Temperature 97.9, pulse 88, respiratory rate 18, blood pressure 163/87, oxygen saturation 95% on room air. GENERAL APPEARANCE: The patient is awake, alert, oriented to person, place and time, answering questions appropriately. LUNGS: Clear to auscultation. No rales, rhonchi or wheezes. HEART: S1, S2, sinus rhythm. ABDOMEN: Soft, nontender, nondistended. Positive bowel sounds. EXTREMITIES: Multiple excoriations, decreasing erythema bilateral dorsal feet, trace 1+ pitting edema. LABORATORY STUDIES: Reviewed. IMAGING STUDIES: Reviewed. MICROBIOLOGY: Reviewed. ASSESSMENT AND PLAN: A 70-year-old female with a history of bipolar disorder, found by neighbors to be rambling with altered mental status with open pill boxes in her appointment and making suicidal statements, admitted for possible drug ingestion and suicidal statement. IMPRESSION: 1. Acute encephalopathy resolved, secondary to drug ingestion. 2. Drug ingestion intentional. 3. Suicidal statement. 4. History of bipolar disorder. 5. Hypertension. 6. Refusing to eat. PLAN: 1. The patient's medications have all been changed to IV Poison Control monitoring the patient's valproic acid level. 2. Medically stable from the medical standpoint. DANGELO
[2020-11-06 14:00] VITALS: BP 128/73
--- NOTE | 2020-11-06 16:19 | ECGEPIP ---
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
[2020-11-06] MEDS ORDERED: NS 1,000 ML IV ONE (18:45)
[2020-11-06] MEDS: CETIRIZINE (ZyrTEC) 10 MG TAB PO SCH (21:01)
[2020-11-06] MEDS: risperiDONE 2 MG TAB PO SCH (21:01)
[2020-11-06] MEDS: D5W/0.45% SODIUM CHLORIDE 1,000 ML IV SCH (21:35)
[2020-11-06 22:00] VITALS: BP 151/89
[2020-11-07] MEDS: D5W/0.45% SODIUM CHLORIDE 1,000 ML IV SCH (03:41)
[2020-11-07 08:25] LABS: BLOOD UREA NITROGEN 12 MG/DL (7-18); CALCIUM LEVEL 8.1 MG/DL (8.8-10.2); CARBON DIOXIDE LEVEL 24 MEQ/L (21-32); CHLORIDE LEVEL 111 MEQ/L (98-107); CREATININE FOR GFR 0.91 MG/DL (0.55-1.30); GLOMERULAR FILTRATION RATE > 60.0 (>45); GLUCOSE, FASTING 97 MG/DL (70-100); POTASSIUM SERUM 3.9 MEQ/L (3.5-5.1); SODIUM LEVEL 145 MEQ/L (136-145)
[2020-11-07 08:44] LABS: BASO # 0.1 10^3/uL (0.0-0.2); EOS # 0.2 10^3/uL (0.0-0.5); EOS % 3.2 % (0.0-3.0); HEMATOCRIT 37.9 % (36.0-47.0); LYMPH % 16.7 % (24.0-44.0); MEAN CORPUSCULAR HEMOGLOBIN 29.4 pg (27.0-33.0); MEAN CORPUSCULAR HGB CONC 31.7 g/dl (32.0-36.5); MEAN CORPUSCULAR VOLUME 92.9 fl (80.0-96.0); MONO # 0.6 10^3/uL (0.0-0.8); MONO % 10.5 % (2.0-8.0); NEUTROPHILS # 4.1 10^3/uL (1.5-8.5); NEUTROPHILS % 68.1 % (36.0-66.0); PLATELET COUNT, AUTOMATED 178 10^3/uL (150-450); RED BLOOD COUNT 4.08 10^6/uL (4.00-5.40)
[2020-11-07] MEDS: LEVOTHYROXINE 100MCG (0.1MG) VIAL IV SCH (10:37)
[2020-11-07] MEDS: NITROGLYCERIN 2% OINT 1 GM *U/D* PKT TOP SCH ×2 (10:38→20:09)
[2020-11-07] MEDS: levETIRAcetam INJection 500 MG in D5W MINI-BAG PLUS 100 ML IV SCH ×2 (10:39→20:05)
[2020-11-07] MEDS: PANTOPRAZOLE 40MG VIAL (C9113 PER 1) IV SCH (10:39)
[2020-11-07] MEDS: MYCOLOG CREAM 15 GM (NYSTATIN/TRIAMCINOLONE) TOP SCH ×2 (10:39→20:09)
[2020-11-07] MEDS: BACITRACIN OINTMENT 30GM TUBE TOP SCH ×2 (10:40→20:09)
--- NOTE | 2020-11-07 14:30 | MHCR ---
FORMERLY [facility], LATER [facility] PSYCHIATRIC CONSULTATION DATE: 11/05/2020 HISTORY OF PRESENT ILLNESS: The patient is seen via TelePsychiatry due to the current Coronavirus crisis. I was asked to see this 70-year-old woman with a history of bipolar disorder, Parkinson's, hypothyroidism, hyperlipidemia, osteoporosis. She was found in her apartment with altered mental status with large pupils and there were pill bottles scattered around her apartment and she was saying that she wished she would . No history was able to be obtained from the patient because she was basically just rambling on about unrelated things. When I saw the patient she was in the same condition. She did recognize me from having been treated by me many, many years ago, probably prior psychiatric admission, but other than that I could not get her to answer any of my questions. She was just rambling on; most of it was incomprehensible. PAST PSYCHIATRIC HISTORY: Unable to obtain from the patient, but I do know that this patient has a hospitalization that was right before this one so she was admitted on 10/29/2020 and discharged on 11/01/2020 and then now she was readmitted on 11/04/2020 so in looking at the record from the 10/29/2020 admission it seems that she was admitted for mental status changes also and during that admission I did see a note from 10/29/[address] that was done by Dr. Salinas another psychiatrist in the hospital and the patient has a diagnosis of schizoaffective disorder and she does have a long standing psychiatric history with multiple hospitalizations. FAMILY HISTORY: Unable to obtain. MEDICAL HISTORY: This is as noted above. ABUSE HISTORY: Unable to obtain. SUBSTANCE ABUSE HISTORY: Her toxicology is negative. I am not able to obtain from the patient, but I did not see any mention of the patient having a history of substance abuse. MENTAL STATUS EXAM: Unable to complete. DIAGNOSIS: Schizoaffective disorder. TREATMENT PLAN: At this point I recommend that once the patient is medically stable that she be transferred to the Psychiatric Unit for further stabilization.
[2020-11-07 17:56] VITALS: BP 140/67
[2020-11-07] MEDS: amLODIPine 5 MG TAB PO ONE ×2 (18:09→18:19)
[2020-11-07] MEDS: risperiDONE 2 MG TAB PO SCH (20:34)
[2020-11-07] MEDS: CETIRIZINE (ZyrTEC) 10 MG TAB PO SCH (20:34)
[2020-11-07 22:00] VITALS: BP 165/78
[2020-11-08 06:00] VITALS: BP 154/67
[2020-11-08] MEDS: DOCUSATE SODIUM 100MG CAPSULE PO SCH ×3 (09:00→21:00)
[2020-11-08] MEDS: amLODIPine 5 MG TAB PO SCH ×2 (09:00→09:42)
[2020-11-08 09:05] LABS: BASO # 0.1 10^3/uL (0.0-0.2); BASO % 1.1 % (0.0-1.0); EOS # 0.2 10^3/uL (0.0-0.5); EOS % 2.8 % (0.0-3.0); HEMATOCRIT 37.2 % (36.0-47.0); LYMPH % 18.1 % (24.0-44.0); MEAN CORPUSCULAR HEMOGLOBIN 29.9 pg (27.0-33.0); MEAN CORPUSCULAR HGB CONC 32.3 g/dl (32.0-36.5); MEAN CORPUSCULAR VOLUME 92.8 fl (80.0-96.0); MONO # 0.8 10^3/uL (0.0-0.8); MONO % 13.3 % (2.0-8.0); NEUTROPHILS # 3.6 10^3/uL (1.5-8.5); NEUTROPHILS % 64.3 % (36.0-66.0); PLATELET COUNT, AUTOMATED 223 10^3/uL (150-450); RED BLOOD COUNT 4.01 10^6/uL (4.00-5.40); WHITE BLOOD COUNT 5.6 10^3/uL (4.0-10.0)
[2020-11-08 09:23] LABS: CALCIUM LEVEL 8.8 MG/DL (8.8-10.2); CREATININE FOR GFR 0.98 MG/DL (0.55-1.30); GLOMERULAR FILTRATION RATE 59.9 (>45); POTASSIUM SERUM 4.3 MEQ/L (3.5-5.1)
[2020-11-08] MEDS: PANTOPRAZOLE 40MG VIAL (C9113 PER 1) IV SCH (09:39)
[2020-11-08] MEDS: MIRALAX *UNIT DOSE* 17GM PACKET PO PRN (09:40)
[2020-11-08] MEDS: NITROGLYCERIN 2% OINT 1 GM *U/D* PKT TOP SCH ×2 (09:40→21:00)
[2020-11-08] MEDS: LEVOTHYROXINE 100MCG (0.1MG) VIAL IV SCH (09:40)
[2020-11-08] MEDS: BACITRACIN OINTMENT 30GM TUBE TOP SCH ×2 (09:41→21:44)
[2020-11-08] MEDS: MYCOLOG CREAM 15 GM (NYSTATIN/TRIAMCINOLONE) TOP SCH ×2 (09:41→21:44)
[2020-11-08] MEDS: levETIRAcetam INJection 500 MG in D5W MINI-BAG PLUS 100 ML IV SCH ×2 (09:43→21:31)
--- NOTE | 2020-11-08 11:20 | IPN ---
PROGRESS NOTE DATE: 11/07/2020 SUBJECTIVE: Patient continues to be manic, not sleeping well. She also has refused to eat and has been given I.V. fluids due to decreasing urine output with challenges of I.V. fluid overnight. This morning she continues to ramble on, but she does answer questions occasionally, usually does not maintain eye contact and gets severely agitated when asked particular questions. She is currently in no respiratory distress. She speaks normally without conversational dyspnea. OBJECTIVE: Vital signs: Temperature 98.1, pulse 98, respiratory rate 19, blood pressure 140/64, 96% on room air. General: Patient is rambling. She is in no distress. HEENT: No pallor, no icterus. Lungs: Clear to auscultation, no wheezes or rales. Heart: S1 and S2 sinus tachycardia. Abdomen: Soft, nontender, nondistended, positive bowel sounds. Extremities: No cyanosis or clubbing. Decreasing erythema on the dorsum of bilateral feet with no signs of cellulitis, induration or crepitus. No pitting edema. LABORATORY DATA: White count 6, hemoglobin 12, hematocrit 37, platelet count 178. Sodium 145, potassium 3.9, chloride 111, bicarb 24, BUN 12, creatinine 0.91, glucose 97. ASSESSMENT: 70-year-old female with history of bipolar disorder, depression, anxiety, hypertension brought into the Emergency Room due to altered mental status with rambling according to the neighbors. In her apartment she was found to have open pill boxes and made suicidal statements, admitted for possible suicide attempt. IMPRESSIONS/PLANS: 1. Acute encephalopathy: Resolved. Due to drug ingestion. Per Poison Control no other intervention. Patient had remained stable or 48 hours on the medical floor. Telemetry has been discontinued. Valproic acid and ammonia levels were not elevated. 2. Drug ingestion with her psychiatric medications and valproic acid, intentional: No acute intervention was required. 3. Suicidal statement: Patient denies any active suicidal thoughts, plan. 4. Bipolar disorder: Currently has been manic for the past 3 days and has not slept. She has also refused to eat. Psychiatrist Dr. Ferreira has been consulted, recommends Inpatient Mental Health Unit admission. 5. Decreased urine output due to refusing to eat and decreased oral intake: I.V. fluids have been given. No electrolyte abnormalities or acute kidney injury noted on repeat blood testing. 6. Hypertension: Norvasc 5 mg for better control. 7. Refusing to eat due to psychiatric illness: Patient has been given the option to eat a regular diet versus I.V. fluids. She is being given I.V. fluids for now. 8. Disposition: There aer no beds in the Inpatient Mental Health Unit today. She will remain on the medical floor for now. 9. Abnromal EKG with left axis deviation and possible left anterior fascicular block: No complaints of acute ischemic symptoms. Outpatient follow up with her primary care physician. Possible stress test as an outpatient if becomes symptomatic. DANGELO
[2020-11-08 14:00] VITALS: BP 135/70
[2020-11-08] MEDS: LORazepam 2 MG/ML VIAL IV PRN (16:00)
--- NOTE | 2020-11-08 17:53 | IPNPDOC ---
Subjective Date Seen The patient was seen on 11/08/20. Subjective Chief Complaint/HPI Ms. Kidd is a 70 year old female with Bipolar disorder, dementia, and schizoaffective disorder who is here with suicidal ideation. This morning, she was rambling and was not answering my questions appropriately. Sitter reports this rambling has been going on since 3AM. Otherwise, she has not yet had a bowel movement. Later this afternoon, she was agitated and threw a cup of water at the sitter. Will order PRN lorazepam for agitation. Objective Physical Examination General Exam: Negative: Cooperative Eye Exam: Negative: Sclera icteric Neck Exam: Positive: Supple Chest Exam: Positive: Clear to auscultation; Negative: Wheezing Heart Exam: Positive: Tachycardic, Regular Rhythm Abdomen Exam: Positive: Normal bowel sounds, Soft; Negative: Tenderness Extremity Exam: Negative: Edema Psych Exam: Negative: Mental status NL Assessment /Plan Assessment Ms. Kidd is a 70 year old female with Bipolar disorder, dementia, and schizoaffective disorder who is here with suicidal ideation. Patient has been refusing medication and has been agitated. When patient is able to have a BM, anticipate IMHU when bed available. Plan/VTE VTE Prophylaxis Ordered?: Yes Plan 1. Suicidal statement -Seen by psychiatry -Patient will need IMHU 2. Bipolar/schizoaffective disorder -Patient currently on Keppra and risperidone -She has refused risperidone -PRN Ativan for agitation 3. Hypertension -Continue amlodipine 5mg 4. Constipation -Colace BID and MiraLax PRN 5. DVT ppx -Lovenox Disposition: Pending resolution of constipation and bed availability in IMHU VS, I&O, 24H, [facility] Vital Signs/I&O Vital Signs Date Time Temp Pulse Resp B/P (MAP) Pulse Ox O2 Delivery O2 Flow Rate FiO2 11/08/20 14:00 97.9 112 15 100 11/08/20 14:00 135/70 (91) Room Air I&O- Last 24 Hours up to 6 AM 11/08/20 06:00 Intake Total 220 ml Output Total 0 ml Balance 220 ml Laboratory Data 24H LABS Laboratory Tests 2 11/08/20 08:35: Immature Granulocyte % (Auto) 0.4, Neutrophils (%) (Auto) 64.3, Lymphocytes (%) (Auto) 18.1L, Monocytes (%) (Auto) 13.3H, Eosinophils (%) (Auto) 2.8, Basophils (%) (Auto) 1.1H, Neutrophils # (Auto) 3.6, Lymphocytes # (Auto) 1.0L, Monocytes # (Auto) 0.8, Eosinophils # (Auto) 0.2, Basophils # (Auto) 0.1, Nucleated Red Blood Cells % (auto) 0.0, Anion Gap 7L, Glomerular Filtration Rate 59.9, Calcium Level 8.8 CBC/BMP Laboratory Tests 11/08/20 08:35 JORDIN ENG DO Nov 08, 2020 17:53
[2020-11-08] MEDS: risperiDONE 2 MG TAB PO SCH (21:00)
[2020-11-08] MEDS: CETIRIZINE (ZyrTEC) 10 MG TAB PO SCH (21:00)
[2020-11-08 22:00] VITALS: BP 120/73
[2020-11-09 06:00] VITALS: BP 117/59
[2020-11-09 08:29] LABS: BASO % 0.6 % (0.0-1.0); EOS # 0.2 10^3/uL (0.0-0.5); EOS % 2.6 % (0.0-3.0); HEMATOCRIT 38.6 % (36.0-47.0); HEMOGLOBIN 12.4 g/dl (12.0-15.5); LYMPH % 15.2 % (24.0-44.0); MEAN CORPUSCULAR HGB CONC 32.1 g/dl (32.0-36.5); MEAN CORPUSCULAR VOLUME 93.2 fl (80.0-96.0); MONO # 0.8 10^3/uL (0.0-0.8); MONO % 12.9 % (2.0-8.0); NEUTROPHILS # 4.4 10^3/uL (1.5-8.5); NEUTROPHILS % 68.2 % (36.0-66.0); PLATELET COUNT, AUTOMATED 223 10^3/uL (150-450); RED BLOOD COUNT 4.14 10^6/uL (4.00-5.40); WHITE BLOOD COUNT 6.4 10^3/uL (4.0-10.0)
[2020-11-09] MEDS: DOCUSATE SODIUM 100MG CAPSULE PO SCH ×3 (08:30→22:28)
[2020-11-09] MEDS: levETIRAcetam INJection 500 MG in D5W MINI-BAG PLUS 100 ML IV SCH ×2 (08:31→21:47)
[2020-11-09] MEDS: amLODIPine 5 MG TAB PO SCH ×2 (08:31→09:00)
[2020-11-09] MEDS: ENOXAPARIN 40MG/0.4ML SYRINGE (J1650 PER 10MG) SC SCH (08:31)
[2020-11-09] MEDS: PANTOPRAZOLE 40MG VIAL (C9113 PER 1) IV SCH (08:31)
[2020-11-09] MEDS: MYCOLOG CREAM 15 GM (NYSTATIN/TRIAMCINOLONE) TOP SCH ×2 (08:32→22:36)
[2020-11-09] MEDS: LEVOTHYROXINE 100MCG (0.1MG) VIAL IV SCH (08:32)
[2020-11-09] MEDS: BACITRACIN OINTMENT 30GM TUBE TOP SCH (08:32)
[2020-11-09] MEDS: NITROGLYCERIN 2% OINT 1 GM *U/D* PKT TOP SCH ×2 (08:33→22:36)
[2020-11-09] MEDS: MIRALAX *UNIT DOSE* 17GM PACKET PO PRN (08:41)
[2020-11-09 08:43] LABS: CALCIUM LEVEL 8.9 MG/DL (8.8-10.2); CREATININE FOR GFR 1.11 MG/DL (0.55-1.30); GLOMERULAR FILTRATION RATE 51.9 (>45); POTASSIUM SERUM 4.1 MEQ/L (3.5-5.1)
[2020-11-09] MEDS ORDERED: MOM 30ML SUSPENSION UDC PO SCH (12:20)
[2020-11-09 14:00] VITALS: BP 132/65
--- NOTE | 2020-11-09 15:23 | IPNPDOC ---
Subjective Date Seen The patient was seen on 11/09/20. Subjective Chief Complaint/HPI Ms. Kidd is a 70 year old female with Bipolar disorder, dementia, and schizoaffective disorder who is here with suicidal ideation. This morning, she was more coherent and was requesting water. She had quickly drank 2 cups of water and had thrown a cup of water at the sitter once. Otherwise, she has refused her oral medications. She is drinking MiraLax with the water. Will try Milk of Magnesium as it is also a liquid. Otherwise, I switched risperidone to liquid as she would drink her MiraLax Objective Physical Examination General Exam: Negative: Cooperative Eye Exam: Negative: Sclera icteric Neck Exam: Positive: Supple Chest Exam: Positive: Clear to auscultation; Negative: Wheezing Heart Exam: Positive: Tachycardic, Regular Rhythm Abdomen Exam: Positive: Normal bowel sounds, Soft; Negative: Tenderness Extremity Exam: Negative: Edema Psych Exam: Negative: Mental status NL Assessment /Plan Assessment Ms. Kidd is a 70 year old female with Bipolar disorder, dementia, and schizoaffective disorder who is here with suicidal ideation. Patient has been refusing medication and has been agitated. When patient is able to have a BM, anticipate IMHU when bed available. Will try Milk of Magnesium and liquid risperidone as MiraLax has been the only oral medication she has taken. Plan/VTE VTE Prophylaxis Ordered?: Yes Plan 1. Suicidal statement -Seen by psychiatry -Patient will need IMHU 2. Bipolar/schizoaffective disorder -Patient currently on Keppra and risperidone -She has refused risperidone. Will switch to liquid -PRN Ativan for agitation 3. Hypertension -Continue amlodipine 5mg 4. Constipation -Colace BID and MiraLax PRN -Patient refused Colace -Will try Milk of Magnesium 5. DVT ppx -Lovenox Disposition: Pending resolution of constipation and bed availability in [facility]. VS, I&O, 24H, Alis Vital Signs/I&O Vital Signs Date Time Temp Pulse Resp B/P (MAP) Pulse Ox O2 Delivery O2 Flow Rate FiO2 11/09/20 14:00 97.2 83 20 132/65 (87) 93 Room Air I&O- Last 24 Hours up to 6 AM 11/09/20 06:00 Intake Total 600 ml Output Total 0 ml Balance 600 ml Laboratory Data 24H LABS Laboratory Tests 2 11/09/20 08:00: Immature Granulocyte % (Auto) 0.5, Neutrophils (%) (Auto) 68.2H, Lymphocytes (%) (Auto) 15.2L, Monocytes (%) (Auto) 12.9H, Eosinophils (%) (Auto) 2.6, Basophils (%) (Auto) 0.6, Neutrophils # (Auto) 4.4, Lymphocytes # (Auto) 1.0L, Monocytes # (Auto) 0.8, Eosinophils # (Auto) 0.2, Basophils # (Auto) 0.0, Nucleated Red Blood Cells % (auto) 0.0, Anion Gap 7L, Glomerular Filtration Rate 51.9, Calcium Level 8.9 CBC/BMP Laboratory Tests 11/09/20 08:00 JORDIN ENG 16, 2021 15:23
[2020-11-09] MEDS: LORazepam 2 MG/ML VIAL IV PRN (15:30)
[2020-11-09 22:00] VITALS: BP 136/66
[2020-11-09] MEDS: CETIRIZINE (ZyrTEC) 10 MG TAB PO SCH (22:28)
[2020-11-09] MEDS: risperiDONE 1 MG/1 ML SOLN ORAL SYRINGE PO SCH (22:36)
[2020-11-10] MEDS ORDERED: LORazepam 2 MG/ML VIAL As Ordered ONE (00:47)
[2020-11-10] MEDS: LORazepam 2 MG/ML VIAL IV PRN ×2 (00:51→08:09)
[2020-11-10 06:00] VITALS: BP 141/69
[2020-11-10 06:35] LABS: BASO % 0.6 % (0.0-1.0); EOS # 0.1 10^3/uL (0.0-0.5); HEMATOCRIT 39.3 % (36.0-47.0); HEMOGLOBIN 12.8 g/dl (12.0-15.5); LYMPH # 1.1 10^3/uL (1.5-5.0); LYMPH % 16.7 % (24.0-44.0); MEAN CORPUSCULAR HEMOGLOBIN 29.8 pg (27.0-33.0); MEAN CORPUSCULAR HGB CONC 32.6 g/dl (32.0-36.5); MEAN CORPUSCULAR VOLUME 91.4 fl (80.0-96.0); MONO # 0.7 10^3/uL (0.0-0.8); MONO % 10.2 % (2.0-8.0); NEUTROPHILS # 4.8 10^3/uL (1.5-8.5); NEUTROPHILS % 70.1 % (36.0-66.0); PLATELET COUNT, AUTOMATED 213 10^3/uL (150-450); WHITE BLOOD COUNT 6.8 10^3/uL (4.0-10.0)
[2020-11-10 07:08] LABS: CALCIUM LEVEL 8.5 MG/DL (8.8-10.2); CREATININE FOR GFR 0.98 MG/DL (0.55-1.30); GLOMERULAR FILTRATION RATE 59.9 (>45)
[2020-11-10] MEDS ORDERED: MIRALAX *UNIT DOSE* 17GM PACKET PO PRN (07:35)
[2020-11-10] MEDS: LEVOTHYROXINE 100MCG (0.1MG) VIAL IV SCH (08:07)
[2020-11-10] MEDS: levETIRAcetam INJection 500 MG in D5W MINI-BAG PLUS 100 ML IV SCH ×2 (08:07→20:57)
[2020-11-10] MEDS: NITROGLYCERIN 2% OINT 1 GM *U/D* PKT TOP SCH ×2 (08:08→20:49)
[2020-11-10] MEDS: ENOXAPARIN 40MG/0.4ML SYRINGE (J1650 PER 10MG) SC SCH (08:09)
[2020-11-10] MEDS: DOCUSATE SODIUM 100MG CAPSULE PO SCH (08:09)
[2020-11-10] MEDS: amLODIPine 5 MG TAB PO SCH (08:09)
[2020-11-10] MEDS: PANTOPRAZOLE 40MG VIAL (C9113 PER 1) IV SCH (08:10)
[2020-11-10] MEDS: MYCOLOG CREAM 15 GM (NYSTATIN/TRIAMCINOLONE) TOP SCH ×2 (08:11→21:08)
[2020-11-10] MEDS ORDERED: GLUCOSE 4GM CHEW TABLET PO PRN (10:00)
[2020-11-10] MEDS ORDERED: DEXTROSE 50% 50 ML SYRINGE IV PRN (10:00)
[2020-11-10] MEDS ORDERED: GLUCAGON INJ 1MG VIAL SC PRN (10:00)
--- NOTE | 2020-11-10 10:09 | IPNPDOC ---
Subjective Date Seen The patient was seen on 11/10/20. Subjective Chief Complaint/HPI Ms. Kidd is a 70 year old female with Bipolar disorder, dementia, and schizoaffective disorder who is here with suicidal ideation. Overnight, she continued to refuse her oral medications and risperidone. This morning, she was agitated. Continued to refuse medications and food. She kept asking for water. Objective Physical Examination General Exam: Negative: Cooperative Eye Exam: Negative: Sclera icteric Neck Exam: Positive: Supple Chest Exam: Positive: Clear to auscultation; Negative: Wheezing Heart Exam: Positive: Tachycardic, Regular Rhythm Abdomen Exam: Positive: Normal bowel sounds, Soft; Negative: Tenderness Extremity Exam: Negative: Edema Psych Exam: Negative: Mental status NL Assessment /Plan Assessment Ms. Kidd is a 70 year old female with Bipolar disorder, dementia, and schizoaffective disorder who is here with suicidal ideation. Patient has been refusing medication and has been agitated. Patient did have a good bowel movement. Unfortunately, patient requires IV medications as she has refused oral medications (Keppra and Synthroid). Will try to have her take her risperidone so she would take her oral medications. Plan/VTE VTE Prophylaxis Ordered?: Yes Plan 1. Suicidal statement -Seen by psychiatry -Patient will need [facility] 2. Bipolar/schizoaffective disorder -Patient currently on Keppra and risperidone -She has refused tablet risperidone. Will keep trying liquid risperidone since she wants water -PRN Ativan for agitation 3. Hypertension -Continue amlodipine 5mg 4. Constipation -Patient will take Miralax -Patient refused Colace -Resolved, patient had 3 BM yesterday 5. DVT ppx -Lovenox Disposition: Pending compliance with oral medication and bed availability in [facility]. VS, I&O, 24H, [facility] Vital Signs/I&O Vital Signs Date Time Temp Pulse Resp B/P (MAP) Pulse Ox O2 Delivery O2 Flow Rate FiO2 11/10/20 08:08 141/69 11/10/20 06:00 97.2 76 16 93 Room Air I&O- Last 24 Hours up to 6 AM 11/10/20 05:59 Intake Total 2610 ml Output Total 0 ml Balance 2610 ml Laboratory Data 24H LABS Laboratory Tests 2 11/10/20 06:23: Immature Granulocyte % (Auto) 0.4, Neutrophils (%) (Auto) 70.1H, Lymphocytes (%) (Auto) 16.7L, Monocytes (%) (Auto) 10.2H, Eosinophils (%) (Auto) 2.0, Basophils (%) (Auto) 0.6, Neutrophils # (Auto) 4.8, Lymphocytes # (Auto) 1.1L, Monocytes # (Auto) 0.7, Eosinophils # (Auto) 0.1, Basophils # (Auto) 0.0, Nucleated Red Bloo d Cells % (auto) 0.0, Anion Gap 9, Glomerular Filtration Rate 59.9, Calcium Level 8.5L CBC/BMP Laboratory Tests 11/10/20 06:23 JORDIN ENG DO Nov 10, 2020 10:09
[2020-11-10 14:00] VITALS: BP 123/60
[2020-11-10] MEDS: CETIRIZINE (ZyrTEC) 10 MG TAB PO SCH (20:50)
[2020-11-10] MEDS: risperiDONE 1 MG/1 ML SOLN ORAL SYRINGE PO SCH (20:57)
[2020-11-10 22:00] VITALS: BP 104/86
[2020-11-11 06:00] VITALS: BP 120/67
[2020-11-11 06:30] LABS: BASO % 0.8 % (0.0-1.0); EOS # 0.2 10^3/uL (0.0-0.5); EOS % 3.8 % (0.0-3.0); HEMATOCRIT 36.9 % (36.0-47.0); HEMOGLOBIN 12.2 g/dl (12.0-15.5); LYMPH # 1.2 10^3/uL (1.5-5.0); LYMPH % 22.5 % (24.0-44.0); MEAN CORPUSCULAR HGB CONC 33.1 g/dl (32.0-36.5); MEAN CORPUSCULAR VOLUME 90.9 fl (80.0-96.0); MONO # 0.6 10^3/uL (0.0-0.8); MONO % 11.5 % (2.0-8.0); NEUTROPHILS # 3.2 10^3/uL (1.5-8.5); PLATELET COUNT, AUTOMATED 219 10^3/uL (150-450); RED BLOOD COUNT 4.06 10^6/uL (4.00-5.40); WHITE BLOOD COUNT 5.3 10^3/uL (4.0-10.0)
[2020-11-11 06:50] LABS: CALCIUM LEVEL 8.5 MG/DL (8.8-10.2); CREATININE FOR GFR 1.35 MG/DL (0.55-1.30); GLOMERULAR FILTRATION RATE 41.4 (>45); POTASSIUM SERUM 3.7 MEQ/L (3.5-5.1)
[2020-11-11] MEDS ORDERED: MIRALAX *UNIT DOSE* 17GM PACKET PO SCH (09:00)
[2020-11-11] MEDS: NITROGLYCERIN 2% OINT 1 GM *U/D* PKT TOP SCH ×2 (10:12→21:00)
[2020-11-11] MEDS: ENOXAPARIN 40MG/0.4ML SYRINGE (J1650 PER 10MG) SC SCH (10:14)
[2020-11-11] MEDS: amLODIPine 5 MG TAB PO SCH (10:14)
[2020-11-11] MEDS: levETIRAcetam INJection 500 MG in D5W MINI-BAG PLUS 100 ML IV SCH (10:14)
[2020-11-11] MEDS: LEVOTHYROXINE 100MCG (0.1MG) VIAL IV SCH (10:15)
[2020-11-11] MEDS: MYCOLOG CREAM 15 GM (NYSTATIN/TRIAMCINOLONE) TOP SCH (10:16)
[2020-11-11] MEDS: PANTOPRAZOLE 40MG VIAL (C9113 PER 1) IV SCH (10:16)
--- NOTE | 2020-11-11 10:28 | IPNPDOC ---
Subjective Date Seen The patient was seen on 11/11/20. Subjective Chief Complaint/HPI Ms. Kidd is a 70 year old female with Bipolar disorder, dementia, and schizoaffective disorder who is here with suicidal ideation. She was seen today sitting up in the chair eating breakfast. She was able to take her risperidone last night. Will see how she does taking oral medication. Objective Physical Examination General Exam: Negative: Cooperative Eye Exam: Negative: Sclera icteric Neck Exam: Positive: Supple Chest Exam: Positive: Clear to auscultation; Negative: Wheezing Heart Exam: Positive: Tachycardic, Regular Rhythm Abdomen Exam: Positive: Normal bowel sounds, Soft; Negative: Tenderness Extremity Exam: Negative: Edema Psych Exam: Negative: Mental status NL Assessment /Plan Assessment Ms. Kidd is a 70 year old female with Bipolar disorder, dementia, and schizoaffective disorder who is here with suicidal ideation. Patient has been refusing medication and has been agitated. Patient did have a good bowel movement. Unfortunately, patient requires IV medications as she has refused oral medications (Keppra and Synthroid). Cannot go to [facility] on IV medications. Will try to have her take her risperidone so she would take her oral medications. She was able to take risperidone last night. Keep encouraging the risperidone. Plan/VTE VTE Prophylaxis Ordered?: Yes Plan 1. Suicidal statement -Seen by psychiatry -Patient will need [facility] 2. Bipolar/schizoaffective disorder -Patient currently on Keppra and risperidone -She has refused tablet risperidone. Will keep trying liquid risperidone since she wants water -PRN Ativan for agitation 3. Hypertension -Continue amlodipine 5mg 4. Constipation -Patient will take Miralax -Will try Colace now that she is taking risperidone 5. Hypothyroidism -Will try oral levothyroxine 6. DVT ppx -Lovenox Disposition: Pending compliance with oral medication and bed availability in [facility]. Continue encouraging risperidone. VS, I&O, 24H, [facility] Vital Signs/I&O Vital Signs Date Time Temp Pulse Resp B/P (MAP) Pulse Ox O2 Delivery O2 Flow Rate FiO2 11/11/20 10:12 104/63 11/11/20 06:00 96.7 94 16 93 Room Air I&O- Last 24 Hours up to 6 AM 11/11/20 06:00 Intake Total 2372 ml Output Total 0 ml Balance 2372 ml Laboratory Data 24H LABS Laboratory Tests 2 6/17/21 11:23: Bedside Glucose (Misc Panel) 144H 11/10/20 16:39: Bedside Glucose (Misc Panel) 82 11/10/20 20:51: Bedside Glucose (Misc Panel) 120H 11/11/20 06:11: Immature Granulocyte % (Auto) 0.4, Neutrophils (%) (Auto) 61.0, Lymphocytes (%) (Auto) 22.5L, Monocytes (%) (Auto) 11.5H, Eosinophils (%) (Auto) 3.8H, Basophils (%) (Auto) 0.8, Neutrophils # (Auto) 3.2, Lymphocytes # (Auto) 1.2L, Monocytes # (Auto) 0.6, Eosinophils # (Auto) 0.2, Basophils # (Auto) 0.0, Nucleated Red Blood Cells % (auto) 0.0, Anion Gap 8, Glomerular Filtration Rate 41.4L, Calcium Level 8.5L CBC/BMP Laboratory Tests 11/11/20 06:11 JORDIN ENG DO Nov 11, 2020 10:28
[2020-11-11] MEDS: DOCUSATE SODIUM 100MG CAPSULE PO SCH ×2 (13:04→20:57)
[2020-11-11 14:00] VITALS: BP 108/57
[2020-11-11] MEDS ORDERED: RISP1SS PO (14:54)
[2020-11-11] MEDS ORDERED: MIRA1POW3 PO (14:54)
[2020-11-11] MEDS ORDERED: LEVE15SO2 PO (14:54)
[2020-11-11] MEDS ORDERED: DOK1CAP7 PO (14:54)
[2020-11-11] MEDS: risperiDONE 1 MG/1 ML SOLN ORAL SYRINGE PO SCH (20:56)
[2020-11-11] MEDS: CETIRIZINE (ZyrTEC) 10 MG TAB PO SCH (20:56)
[2020-11-11 21:00] VITALS: BP 105/66
[2020-11-11] MEDS ORDERED: levETIRAcetam ORAL SOLUTION 500 MG/5 ML UDC PO SCH (21:00)
[2020-11-11 22:00] VITALS: BP 122/56
--- NOTE | 2020-11-11 22:30 | DS.PDOC ---
Discharge Summary General Date of Admission Nov 08, 2020 at 09:26 Date of Discharge Nov 11, 2020 Specialist/[facility], Dr. Ferreira Discharge Summary PROCEDURES PERFORMED DURING STAY: [None]. ADMITTING DIAGNOSES: 1. Acute toxic encephalopathy secondary to possible drug ingestion. 2. Schizoaffective disorder. 3. Bipolar disorder with anxiety and depression. 4. Hypothyroidism. 5. Hypertension. 6. Seizure disorder. 7. Hyperlipidemia. 8. Vertigo. 9. GERD. 10. Hypothyroidism. 11. Dementia. 12. History of migraines and aneurysm. 13. Osteoarthritis. 14. Suicidal ideation. DISCHARGE DIAGNOSES: 1. Acute toxic encephalopathy secondary to possible drug ingestion. 2. Schizoaffective disorder. 3. Bipolar disorder with anxiety and depression. 4. Hypothyroidism. 5. Hypertension. 6. Seizure disorder. 7. Hyperlipidemia. 8. Vertigo. 9. GERD. 10. Hypothyroidism. 11. Dementia. 12. History of migraines and aneurysm. 13. Osteoarthritis. 14. Suicidal ideation/attempt. COMPLICATIONS/CHIEF COMPLAINT: Suicide Attempt. HISTORY OF PRESENT ILLNESS: Copied from admitting physician's H&P " This is a 70-year-old female with history of bipolar, depression, Parkinson's, hypothyroid, hyperlipidemia, osteoporosis, reflux, vertigo, was found in her apartment with altered mental status with large pupils and scattered pills bottles rambling "I wish I would ." The patient was brought in for further evaluation. History could not be obtained from the patient due to rambling and tangential speech. Poison control was contacted. Urine toxicology screen showed low valproic acid, negative salicylate, negative acetaminophen level. TSH was elevated at 6. Ethyl alcohol was negative. Per Poison Control, the patient is to have telemetry monitoring as well as serial EKGs. Hospitalist was called to admit for altered mental status secondary to possible drug overdose although levels are all low or negative. " HOSPITAL COURSE: Work up for altered mental status was negative for infection. Patient continued to be agitated, confused, noncompliant, and aggressive. Due to patient's history of seizures Keppra was switched to IV. In addition, due to patient's hypothyroidism, her levothyroxine was switched to IV. She did not want to take oral medications, and did not take her risperidone. She did drink the Miralax. Patient felt very thirsty and was frequently drinking water. We were able to mix the risperidone with the water and she was able to take that medication. Keppra also had a liquid form and was switched to liquid Keppra. Patient's IV medication were switched to oral. Patient was able to have a bowel movement. Dr. Ferreira had evaluated the patient earlier and patient would benefit from [facility]. Patient will be transferred over to [facility] today. DISCHARGE MEDICATIONS: Please see below. ALLERGIES: Please see below. PHYSICAL EXAMINATION ON DISCHARGE: VITAL SIGNS: Please see below. GENERAL: Upset, but not in any distress HEENT: Head normocephalic, atraumatic NECK: Supple CARDIOVASCULAR EXAMINATION: Regular rate and rhythm RESPIRATORY EXAMINATION: Lungs clear to auscultation bilaterally ABDOMINAL EXAMINATION: Soft, non-tender, normal bowel sounds PSYCHIATRIC EXAMINATION: Anxious, confused LABORATORY DATA: Please see below. IMAGING: Radiologist interpretation CXR No acute pulmonary disease. PROGNOSIS: Good ACTIVITY: As tolerated. DIET: As tolerated. Restricted fluid due to concern for psychogenic polydipsia DISCHARGE PLAN: [facility] DISPOSITION: [facility] DISCHARGE INSTRUCTIONS: 1. ITEMS TO FOLLOWUP ON ON OUTPATIENT: 1. Follow up with psychiatrist at [facility] DISCHARGE CONDITION: Stable Total time spent on discharge planning, discharge summary, and medication reconciliation: 45 minutes Vital Signs/I&Os Vital Signs Date Time Temp Pulse Resp B/P (MAP) Pulse Ox O2 Delivery O2 Flow Rate FiO2 11/11/20 21:00 105/66 11/11/20 14:00 97.7 98 16 98 Room Air I&O- Last 24 Hours up to 6 AM 11/11/20 06:00 Intake Total 2372 ml Output Total 0 ml Balance 2372 ml Laboratory Data Labs 24H Laboratory Tests 2 11/11/20 06:11: Immature Granulocyte % (Auto) 0.4, Neutrophils (%) (Auto) 61.0, Lymphocytes (%) (Auto) 22.5L, Monocytes (%) (Auto) 11.5H, Eosinophils (%) (Auto) 3.8H, Basophils (%) (Auto) 0.8, Neutrophils # (Auto) 3.2, Lymphocytes # (Auto) 1.2L, Monocytes # (Auto) 0.6, Eosinophils # (Auto) 0.2, Basophils # (Auto) 0.0, Nucleated Red Blood Cells % (auto) 0.0, Anion Gap 8, Glomerular Filtration Rate 41.4L, Calcium Level 8.5L 11/11/20 11:41: Bedside Glucose (Misc Panel) 111 11/11/20 16:50: Bedside Glucose (Misc Panel) 138H 11/11/20 20:58: Bedside Glucose (Misc Panel) 107 CBC/BMP Laboratory Tests 11/11/20 06:11 FSBS Laboratory Tests Test 11/11/20 11:41 11/11/20 16:50 11/11/20 20:58 Range/Units Bedside Glucose (Misc Panel) 111 138 107 80-115 MG/DL Discharge Medications Scheduled Atorvastatin Calcium (Atorvastatin Calcium) 10 Mg Tab, 10 MG PO DAILY, (Reported) Calcium Carbonate/Vitamin D3 (Calcium 500-Vit D3 200 Tablet) 1 Each Tablet, 1 TAB PO DAILY, (Reported) Docusate Sodium (Dok) 100 Mg Capsule, 100 MG PO BID Levetiracetam (Levetiracetam) 500 Mg/5 Ml Solution, 500 MG PO BID Levothyroxine Sodium (Synthroid) 100 Mcg Tablet, 100 MCG PO DAILY, (Reported) @ 0300 Multivitamins (Thera M Plus Tablet) 1 Each Tablet, 1 TAB PO DAILY, (Reported) Pantoprazole Sodium (Protonix) 40 Mg Tablet.dr, 40 MG PO DAILY, (Reported) Polyethylene Glycol 3350 (Miralax) 17 Gm Powd.pack, 1 PKT PO DAILY Risperidone (Risperidone) 1 Mg/1 Ml Solution, 4 MG PO QHS 1MG Sertraline Hcl (Zoloft) 100 Mg Tablet, 100 MG PO DAILY, (Reported) Scheduled PRN Acetaminophen (Tylenol Extra Strength) 500 Mg Tablet, 500 MG PO BID PRN for PAIN, (Reported) Miscellaneous Medications [Patient Comment] , (Reported) MED REC COMPLETED VIA LAST DISCHARGE Allergies Coded Allergies: Sulfa (Sulfonamide Antibiotics) (Verified Allergy, Unknown, 01/21/19) aspirin (Verified Allergy, Unknown, 01/21/19) JORDIN ENG DO Nov 11, 2020 22:30
[2020-11-12] MEDS ORDERED: LEVOTHYROXINE 100MCG TABLET (0.1MG) PO SCH (06:00)
[2020-11-12] MEDS ORDERED: PANTOPRAZOLE 40MG TAB (PROTONIX) PO SCH (09:00)
--- NOTE | 2020-11-13 08:35 | REP ---
INDICATION: LUCIO COMPARISON: 05/18/2019 TECHNIQUE: Real time herrera scale ultrasound examination using curved array transducer. FINDINGS: The bilateral kidneys are normal in reniform shape and demonstrate increased echotexture with increased central sinus fat, cortical thinning, and renovascular calcifications consistent with chronic medical renal disease. Right kidney measures 8.9 x 3.5 x 3.4 cm with possible 1.3 cm midpole cyst. No hydronephrosis, nephrolithiasis, or renal mass lesion. Left kidney measures 9.0 x 4.2 x 3.5 cm without hydronephrosis, nephrolithiasis, cystic or renal mass lesion. IMPRESSION: Findings consistent with chronic medical renal disease. No hydronephrosis. Small suspected right renal cyst. 1. <Electronically signed by Nimesh Lu > 11/13/20 0801
== END 2020-11-11 21:22 | DRG 92 ==
LOC: EDBD 13:52 → M ED 13:52 → M ED INP 13:53 → ENRESERV 19:13 → M MSPAV 20:40 → OBSVTOIN 11-08 09:26
PROVIDERS: ADMIT General Practice; ATTEND Internal Medicine
DX: G92 Toxic encephalopathy (principal); R45.851 Suicidal ideations; F31.60 Bipolar disorder, current episode mixed, unspecified; G20 Parkinson's disease; E03.9 Hypothyroidism, unspecified; E78.5 Hyperlipidemia, unspecified; M81.0 Age-related osteoporosis without current pathological fracture; K21.9 Gastro-esophageal reflux disease without esophagitis; R42 Dizziness and giddiness; I10 Essential (primary) hypertension; G40.909 Epilepsy, unspecified, not intractable, without status epilepticus; F25.9 Schizoaffective disorder, unspecified; F41.9 Anxiety disorder, unspecified; F03.90 Unspecified dementia, unspecified severity, without behavioral disturbance, psychotic disturbance, mood disturbance, and anxiety; G43.909 Migraine, unspecified, not intractable, without status migrainosus; M19.90 Unspecified osteoarthritis, unspecified site; M54.9 Dorsalgia, unspecified; Z79.899 Other long term (current) drug therapy; Z91.14 Patient's other noncompliance with medication regimen; K59.00 Constipation, unspecified; Z20.822 Contact with and (suspected) exposure to COVID-19

== ENCOUNTER 2020-11-11 16:43 | Inpatient (IN) | payer MEDICARE, MEDICAID ==
[~2020-11-11] VITALS: Ht 165.1 cm; Wt 81.8 kg
[~2020-11-11 16:43] MED LIST changes: +DOK1CAP4 PO; +KEPP1TAB PO; +LEVE15SO2 PO; +MIRA1POW3 PO; +RISP1SS PO
[2020-11-11] MEDS ORDERED: MAALOX 30 ML SUSP *UDC PO PRN (19:40)
[2020-11-11] MEDS ORDERED: MOM 30ML SUSPENSION UDC PO PRN (19:40)
[2020-11-11 23:00] VITALS: BP 111/68
[2020-11-12] MEDS: traZODone 50 MG TAB PO PRN (01:42)
--- NOTE | 2020-11-12 09:35 | MHIPNPDOC ---
[facility] Progress Note Progress Note DATE OF SERVICE: 11/12/20 The patient was admitted to on November 11, and apparently seen by nurse practitioner, for initial assessment. This morning she is alert, awake, but is somewhat unsteady and is on one-to-one observation. She has cooperated with the risperidone last night and apparently slept. On approach, by the M.D. the patient is not able to respond appropriately and was mumbling a few words and slowly walked into the bathroom and didn't want to be interviewed any more. She does not appear to be in any acute distress and behavior is in control, but is very slow and deliberate and not verbally productive. She is not agitated and has been in good control. So far. HISTORY: . VITAL SIGNS: See below. NEW TEST RESULTS: . CURRENT MEDICATIONS: See below. MENTAL STATUS EXAMINATION: Patient is a 70-year old female, who is unsteady and somewhat withdrawn, preoccupied. Speech: Is , not productive. Language skills are poor. Thought processes including: , Not responding appropriately. Thought content: , Unable to evaluate. Abstract reasoning, and computation: poor. Description of associations: loose , preoccupied. Description of abnormal or psychotic thoughts: , Unable to evaluate. Judgment: poor. Insight: very poor. Orientation: Appears oriented to the place. Recent and remote memory: poor. Attention span and concentration: . Language: .poor Fund of knowledge: . Mood: Appears depressed, preoccupied. Affect: For prolapsed. DIAGNOSES: 1. . Chronic schizophrenia per history 2. . 3. . ASSESSMENT:, Grossly disorganized MANAGEMENT PLAN: . Continue with the risperidone and supportive therapy and continue with the one-to-one observation. TIME SPENT: 15 minutes. Vital Signs Vital Signs Date Time Temp Pulse Resp B/P (MAP) Pulse Ox O2 Delivery O2 Flow Rate FiO2 11/11/20 23:00 98.0 101 20 111/68 (82) 95 Room Air Current Medications Current Medications Medications (Trade) Dose Ordered Sig/Marisa Route PRN Reason Start Time Stop Time Status Last Admin Dose Admin Acetaminophen (Tylenol Tab) 650 mg Q6HP PRN PO HEADACHE or MILD DISCOMFORT 11/11/20 19:40 Al Hydrox/Mg Hydrox/Simethicone (Mylanta) 30 ml Q4HP PRN PO HEARTBURN/INDIGESTION 11/11/20 19:40 Amlodipine Besylate (Norvasc) 5 mg DAILY PO 11/12/20 09:00 Docusate Sodium (Colace) 100 mg BID PO 11/12/20 09:00 Levetiracetam (Keppra Oral Solution) 500 mg BID PO 11/12/20 09:00 Levothyroxine Sodium (Synthroid) 100 mcg DAILY@06 PO 11/12/20 06:00 Magnesium Hydroxide (Milk Of Magnesia) 30 ml DAILYPRN PRN PO CONSTIPATION 11/11/20 19:40 Pantoprazole Sodium (Protonix) 40 mg DAILY PO 11/12/20 09:00 Polyethylene Glycol (Miralax) 1 pkt DAILY PO 11/12/20 09:00 Risperidone (RisperDAL LIQUID) 4 mg QHS PO 11/12/20 21:00 Trazodone HCl (Desyrel) 50 mg QHSP PRN PO INSOMNIA 11/11/20 19:40 11/12/20 01:42 Allergies Coded Allergies: Sulfa (Sulfonamide Antibiotics) (Verified Allergy, Unknown, 01/21/19) aspirin (Verified Allergy, Unknown, 01/21/19) MARISOL HURD M.D. Nov 12, 2020 09:35
[2020-11-12] MEDS: LEVOTHYROXINE 100MCG TABLET (0.1MG) PO SCH (09:55)
[2020-11-12] MEDS: amLODIPine 5 MG TAB PO SCH (09:56)
[2020-11-12] MEDS: DOCUSATE SODIUM 100MG CAPSULE PO SCH ×2 (09:56→21:47)
[2020-11-12] MEDS: levETIRAcetam ORAL SOLUTION 500 MG/5 ML UDC PO SCH ×2 (09:56→21:47)
[2020-11-12] MEDS: PANTOPRAZOLE 40MG TAB (PROTONIX) PO SCH (09:56)
[2020-11-12] MEDS: MIRALAX *UNIT DOSE* 17GM PACKET PO SCH (09:56)
[2020-11-12 10:01] VITALS: BP 111/68
--- NOTE | 2020-11-12 10:31 | MHHPEPDOC ---
General Date Of Admission: Nov 11, 2020 Chief Complaint ". The patient was admitted to medical floor on November 04, after a suspected intentional overdose. She was apparently seen by Dr. Ferreira for psychiatric consultation and was transferred to inpatient mental health unit. Upon discharge from medicine on status. History of Present Illness HISTORY OF THE PRESENT ILLNESS: Patient is a 70 -year-old , female, who [apparently has a long history of a bipolar disorder, was admitted to medicine on November 04, after suspected overdose. She was found under responsive in a very disorganized living situation with empty medicine bottles and suspected of intentional overdose. She apparently was seen for psychiatric consultation by Dr. Ferreira and was transferred on November 11. On the unit. Patient is very preocc upied, withdrawn somewhat regressed, requiring one-to-one observation due to her unsteady gait and is not very verbally responsive. When approached by this M.D. the patient mumbled a few words and then slowly walked into the bathroom and didn't want to be interviewed anymore. Most of the information was obtained from the emergency room and medical floor record.]. Psychiatric Review of Systems Depression (2 or more weeks): depressed mood, other (emergency room and ambulance records shows she was living in a deplorable condition with the empty medicine bottles and was found to be under responsive and suspected of overdose) Melinda (4 or more days of): denies Psychosis: other (. Unable to evaluate) PTSD: other (. Unable to evaluate) Anxiety: other (. Unable to evaluate, but does not appear to be highly anxious) Past Psychiatric History Previous Psychiatric Diagnosis: . Apparently has a long extensive history of bipolar disorder Previous Psychiatric Admissions: . Has past admissions Suicide Attempts: ., Unclear Psychiatric Follow-up: ., Unclear Psychiatric medications: . Apparently was on Depakote, Zoloft and risperidone Past Medical History Medical Problems Multiple medical history refer to the admission history she has history of a seizure, hypothyroidism, GERD, hypertension, and many more Seizures: Yes Hospitalizations: Yes Surgeries: Yes Family Medical/Psychiatric HX Medical Problems Unable to obtain any family history Addiction History other (. No known history of addictions) Social History Childhood: ., Unable to evaluate Abuse/Trauma:., Unable to evaluate Current Living Situation: . Was living in a deplorable condition per emergency room report Education: ., Unclear, unclear Employment: . Unclear Social Support: Was living alone. Legal: . Unclear Marital: . Unclear Mental Status Examination General Appearance: unkempt, appears stated age, hospital scubs/clothing, other Build: average Demeanor: withdrawn, preoccupied Eye Contact: poor Activity: slowed Behavior: uncooperative, loss of interests, withdrawn Speech: non-spontaneous, impoverished Mood Patient is not verbally responding and unable to evaluate, but apparently was a suspected of taking an overdose Affect: constricted Thought Process: depressed, slow, other (mumbled a few words and not verbally responsive after that) Thought Content (Delusions): other Thought Content (Other): other (. Unable to evaluate) Thought Content (Aggressive): other (. Unable to evaluate) Perception (Hallucinations): other Perception (Other): other (. Unable to evaluate. Unable to evaluate) Cognition (Impairment of): other (. Unable to evaluate) Cognition(Intelligence Est.): other (. Unable to evaluate) Oriented: Awake Insight: other Judgment: Other (. Unable to evaluate. Unable to evaluate) Psychosis: Other (. Unable to evaluate) Diagnoses Bipolar disorder per history. Intentional overdose. 2. History A-FIB/CHADSVASC A-FIB History Current/History of A-Fib/PAF?: No Current PO Anticoag Therapy: No Age/Risk Factor Scoring CHADSVASC: CHADSVASC Response (Comments) Value Gender Risk Factor Female 1 Hx of CHF No 0 Hx of HTN Yes 1 Hx of Stroke/TIA/or VTE No 0 Hx of Diabetes No 0 Hx of Vascular Disease No 0 Total 2 Treatment Treatment ordered: NONE Assessment At this point the patient is alert, awake, but is not verbally responding and uncooperative with interview. She was medically stabilized from suspected overdose, but her current living arrangement and current outpatient treatment and her compliance is Questionable. We will continue her discharge medications, but needs further evaluation for clear clinical picture. Initial Treatment Plan 1. Patient was admitted on a [9.39] status. 2. Complete history was obtained. 3. With patients permission, family will be contacted and database will be expanded. 4. Patients medication regimen will be reviewed and changed accordingly. 5. Patient will be provided with protected environment. 6. Patient will be treated with individual, group, and milieu therapies. 7. Patient will receive supportive psych-education. 8. Discharge planning will commence immediately. 9. Outpatient follow-up treatment will be strongly recommended. 10. The initial treatment plan will focus initially on: * Depression. * Risk for suicide. ESTIMATED LENGTH OF STAY: [5]-[7] DAYS. TIME SPENT COUNSELING AND COORDINATING INITIAL CARE: [45] minutes. Tobacco Cessation Screen If Patient is a Smoker Apparently, nonsmoker Incomplete r/t Pt cond. Vital Signs Vital Signs Date Time Temp Pulse Resp B/P (MAP) Pulse Ox O2 Delivery O2 Flow Rate FiO2 11/12/20 09:56 101 111/68 11/11/20 23:00 98.0 20 95 Room Air Medications Scheduled Atorvastatin Calcium (Atorvastatin Calcium) 10 Mg Tab, 10 MG PO DAILY, (Reported) Calcium Carbonate/Vitamin D3 (Calcium 500-Vit D3 200 Tablet) 1 Each Tablet, 1 TAB PO DAILY, (Reported) Docusate Sodium (Dok) 100 Mg Capsule, 100 MG PO BID Levetiracetam (Levetiracetam) 500 Mg/5 Ml Solution, 500 MG PO BID Levothyroxine Sodium (Synthroid) 100 Mcg Tablet, 100 MCG PO DAILY, (Reported) @ 0300 Multivitamins (Thera M Plus Tablet) 1 Each Tablet, 1 TAB PO DAILY, (Reported) Pantoprazole Sodium (Protonix) 40 Mg Tablet.dr, 40 MG PO DAILY, (Reported) Polyethylene Glycol 3350 (Miralax) 17 Gm Powd.pack, 1 PKT PO DAILY Risperidone (Risperidone) 1 Mg/1 Ml Solution, 4 MG PO QHS 1MG Sertraline Hcl (Zoloft) 100 Mg Tablet, 100 MG PO DAILY, (Reported) Scheduled PRN Acetaminophen (Tylenol Extra Strength) 500 Mg Tablet, 500 MG PO BID PRN for PAIN, (Reported) Miscellaneous Medications [Patient Comment] , (Reported) MED REC COMPLETED VIA LAST DISCHARGE Allergies Coded Allergies: Sulfa (Sulfonamide Antibiotics) (Verified Allergy, Unknown, 01/21/19) aspirin (Verified Allergy, Unknown, 01/21/19) MARISOL HURD M.D. Nov 12, 2020 10:31
--- NOTE | 2020-11-12 19:11 | HPEPDOC ---
[facility] Medical History & Physical Date of Admission Nov 11, 2020 Date of Service: Nov 12, 2020 History and Physical CHIEF COMPLAINT: Suicidal ideation/attempt HISTORY OF PRESENT ILLNESS: Ms. Kidd is a 70 year old female with Bipolar disorder, dementia, and schizoaffective disorder who is here with suicidal ideation/attempt with drugs. She was found with empty pill bottles at home saying "I wish I would ". She was admitted on 11/04/20 on the medical side for medical stabilization. She was discharged on 11/11/20 to go to [facility]. When I tried to see her earlier in the day, she was in the bathroom. Nursing reported that she had hid there for more than an hour. I returned later in the day. She had eaten at her table and was resting in the chair. She was rapidly speaking and it was difficult to understand what she was saying as her words were not clear. Most of it was complaining that her milk was too warm and she wanted more to drink. There were periods where she was worried about something and started to tear up, and then started rambling again. When I went through my review of systems, she tells me that she does not know and she is afraid of saying the wrong thing. PAST MEDICAL HISTORY: 1. Bipolar disorder. 2. GERD. 3. Hypertension. 4. Seizures. 5. Schizoaffective disorder. 6. Seasonal allergies. 7. Hyperlipidemia. 8. Vertigo. 9. Hypothyroidism. 10. Anxiety. 11. Head trauma, 2-1/2 years of age. 12. Dementia. 13. Headaches. 14. Migraine. 15. Aneurysm. 16. Hyperlipidemia. 17. Osteoporosis. 18. Osteoarthritis. 19. Back injury with chronic back pain. 20. Perforated stomach ulcer in 1989. 21. 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 PAST SURGICAL HISTORY: 1. Repaired perforated stomach ulcer. 2. Total abdominal hysterectomy with bilateral salpingo-oophorectomy due to endometrial cancer 2010. 3. Right breast biopsy x2 for benign calcifications in 2020. 4. Left eyelid repair during childhood. 5. EMB/ECC by 2009. 6. Colonoscopy 2001. SOCIAL HISTORY: Tobacco use: Denies ETOH: Denies Illicit drug use: Denies FAMILY HISTORY: Maternal aunt has history of pancreatic cancer ALLERGIES: Please see below. REVIEW OF SYSTEMS: Unable to obtain review of systems. Patient was rambling and said she was afraid of saying the wrong thing. HOME MEDICATIONS: Please see below. PHYSICAL EXAMINATION: VITAL SIGNS: Temperature 98, pulse 101, respiratory rate 20, blood pressure 111/68, pulse oximetry 95 % on room air. GENERAL: Mildly disheveled and speaking fast. HEENT: EOMI, sclera clear. NECK: Supple. RESPIRATORY: Lungs clear to auscultation bilaterally, no rales, wheeze or rhonchi. CARDIOVASCULAR: Tachycardic, but regular rhythm. ABDOMEN: Soft, nontender, no guarding or rebound tenderness. Normal bowel sounds. MUSCLE SKELETAL: Muscle strength 5/5 in all extremities. NEUROLOGICAL: CN 312 grossly intact PSYCHOLOGICAL: Anxious and rambling LABORATORY DATA: See below. MICROBIOLOGY: Please see below. ASSESSMENT and PLAN: 1. Suicidal Ideation/Attempt -Patient had empty pill bottles and was saying she wanted to -Unclear if patient had taken her meds inappropriately or not taking them at all -Being managed in the inpatient mental health unit 2. Bipolar/schizoaffective disorder -Being managed in the inpatient mental health unit 3. Hypertension -Continue amlodipine 4. Constipation -Continue Miralax and Colace 5. Hypothyroidism -Continue levothyroxine 6. LUCIO -Mild elevation in creatinine. Her fluids were initially restricted in concerns for polydipsia. Her LUCIO may be secondary to fluid restriction. Okay to allow her to drink water. Thank you for consulting us. We will sign off at this time. If there are any further questions or concerns, please do not hesitate to contact us. Vital Signs Vital Signs Date Time Temp Pulse Resp B/P (MAP) Pulse Ox O2 Delivery O2 Flow Rate FiO2 11/12/20 10:01 98.0 101 20 111/68 95 Room Air Home Medications Scheduled Atorvastatin Calcium (Atorvastatin Calcium) 10 Mg Tab, 10 MG PO DAILY Calcium Carbonate/Vitamin D3 (Calcium 500-Vit D3 200 Tablet) 1 Each Tablet, 1 TAB PO DAILY Docusate Sodium (Dok) 100 Mg Capsule, 100 MG PO BID Levetiracetam (Levetiracetam) 500 Mg/5 Ml Solution, 500 MG PO BID Levothyroxine Sodium (Synthroid) 100 Mcg Tablet, 100 MCG PO DAILY @ 0300 Multivitamins (Thera M Plus Tablet) 1 Each Tablet, 1 TAB PO DAILY Pantoprazole Sodium (Protonix) 40 Mg Tablet.dr, 40 MG PO DAILY Polyethylene Glycol 3350 (Miralax) 17 Gm Powd.pack, 1 PKT PO DAILY Risperidone (Risperidone) 1 Mg/1 Ml Solution, 4 MG PO QHS 1MG Sertraline Hcl (Zoloft) 100 Mg Tablet, 100 MG PO DAILY Scheduled PRN Acetaminophen (Tylenol Extra Strength) 500 Mg Tablet, 500 MG PO BID PRN for PAIN Miscellaneous Medications [Patient Comment] MED REC COMPLETED VIA LAST DISCHARGE Allergies Coded Allergies: Sulfa (Sulfonamide Antibiotics) (Verified Allergy, Unknown, 01/21/19) aspirin (Verified Allergy, Unknown, 01/21/19) A-FIB/CHADSVASC A-FIB History Current/History of A-Fib/PAF?: No Age/Risk Factor Scoring CHADSVASC: CHADSVASC Response (Comments) Value Gender Risk Factor Female 1 Hx of CHF No 0 Hx of HTN Yes 1 Hx of Stroke/TIA/or VTE No 0 Hx of Diabetes No 0 Hx of Vascular Disease No 0 Total 2 MARJORDIN DO Nov 12, 2020 16:56
[2020-11-12] MEDS: risperiDONE 1 MG/1 ML SOLN ORAL SYRINGE PO SCH (21:48)
[2020-11-13] MEDS: LEVOTHYROXINE 100MCG TABLET (0.1MG) PO SCH ×2 (05:59→06:02)
[2020-11-13 06:16] VITALS: BP 126/63
[2020-11-13 08:17] LABS: CALCIUM LEVEL 8.7 MG/DL (8.8-10.2); CREATININE FOR GFR 1.01 MG/DL (0.55-1.30); GLOMERULAR FILTRATION RATE 57.9 (>45); POTASSIUM SERUM 3.9 MEQ/L (3.5-5.1)
--- NOTE | 2020-11-13 08:35 | MHIPNPDOC ---
[facility] Progress Note Progress Note DATE OF SERVICE: 11/13/20 The patient didn't sleep last night and has been very irritable rambling and pressured and not making any sense. On examination the patient is alert, awake . Does not appear lethargic and her speech is louder and more pressured and is very repetitive without making any sense. Review of old records shows that she had a similar episode in May 2014 had about 10 day stay on the inpatient unit and was stabilized with Depakote and risperidone along with small dose of Seroquel. History appears consistent with schizoaffective type of disorder with a fairly good remission in between. I will restart Depakote 500 mg twice a day and add Seroquel 100 mg at bedtime to stabilize HISTORY: . VITAL SIGNS: See below. NEW TEST RESULTS: . CURRENT MEDICATIONS: See below. MENTAL STATUS EXAMINATION: Patient is a 70-year old female, who is , alert, awake in no acute physical distress, but in poor contact. Speech: Is rapid, pressured, repetitive and incoherent. Language skills are poor. Thought processes including: , Disorganized. Thought content: , Unable to evaluate. Abstract reasoning, and computation: poor. Description of associations: , Loose, disorganized. Description of abnormal or psychotic thoughts: Bizarre and disorganized. Judgment: poor. Insight: very poor. Orientation: , Unable to evaluate. Recent and remote memory: poor]. Attention span and concentration: [poor]. Language: . Fund of knowledge: [poor]. Mood: [Irritable or]. Affect: [, Agitated, labile]. DIAGNOSES: 1. . Schizoaffective disorder 2. . 3. . ASSESSMENT:[, Grossly disorganized] MANAGEMENT PLAN: [, Try to stabilize with medications and supportive therapy]. TIME SPENT: [20] minutes. Vital Signs Vital Signs Date Time Temp Pulse Resp B/P (MAP) Pulse Ox O2 Delivery O2 Flow Rate FiO2 11/13/20 06:16 99.2 99 20 126/63 (84) 95 Room Air Laboratory Data 24H Labs Laboratory Tests 2 11/13/20 07:31: Anion Gap 6L, Glomerular Filtration Rate 57.9, Calcium Level 8.7L CBC/BMP Laboratory Tests 11/13/20 07:31 Current Medications Current Medications Medications (Trade) Dose Ordered Sig/Marisa Route PRN Reason Start Time Stop Time Status Last Admin Dose Admin Acetaminophen (Tylenol Tab) 650 mg Q6HP PRN PO HEADACHE or MILD DISCOMFORT 11/11/20 19:40 Al Hydrox/Mg Hydrox/Simethicone (Mylanta) 30 ml Q4HP PRN PO HEARTBURN/INDIGESTION 11/11/20 19:40 Amlodipine Besylate (Norvasc) 5 mg DAILY PO 11/12/20 09:00 11/12/20 09:56 Docusate Sodium (Colace) 100 mg BID PO 11/12/20 09:00 11/12/20 21:47 Levetiracetam (Keppra Oral Solution) 500 mg BID PO 11/12/20 09:00 11/12/20 21:47 Levothyroxine Sodium (Synthroid) 100 mcg DAILY@06 PO 11/12/20 06:00 Magnesium Hydroxide (Milk Of Magnesia) 30 ml DAILYPRN PRN PO CONSTIPATION 11/11/20 19:40 Pantoprazole Sodium (Protonix) 40 mg DAILY PO 11/12/20 09:00 11/12/20 09:56 Polyethylene Glycol (Miralax) 1 pkt DAILY PO 11/12/20 09:00 11/12/20 09:56 Risperidone (RisperDAL LIQUID) 4 mg QHS PO 11/12/20 21:00 11/12/20 21:48 Trazodone HCl (Desyrel) 50 mg QHSP PRN PO INSOMNIA 11/11/20 19:40 11/12/20 01:42 Allergies Coded Allergies: Sulfa (Sulfonamide Antibiotics) (Verified Allergy, Unknown, 01/21/19) aspirin (Verified Allergy, Unknown, 01/21/19) MARISOL HURD M.D. Nov 13, 2020 08:35
[2020-11-13] MEDS ORDERED: DIVALPROEX 500MG *ER* TAB PO SCH (09:00)
[2020-11-13] MEDS: MIRALAX *UNIT DOSE* 17GM PACKET PO SCH (11:34)
[2020-11-13] MEDS: amLODIPine 5 MG TAB PO SCH (11:35)
[2020-11-13] MEDS: levETIRAcetam ORAL SOLUTION 500 MG/5 ML UDC PO SCH ×2 (11:50→21:23)
[2020-11-13] MEDS: DOCUSATE SODIUM 100MG CAPSULE PO SCH ×2 (12:11→21:24)
[2020-11-13] MEDS: DIVALPROEX SPRINKLE 125 MG CAP PO SCH ×2 (12:12→21:24)
[2020-11-13] MEDS: PANTOPRAZOLE 40MG TAB (PROTONIX) PO SCH (12:12)
[2020-11-13] MEDS: risperiDONE 1 MG/1 ML SOLN ORAL SYRINGE PO SCH (21:00)
[2020-11-13] MEDS: QUEtiapine FUMARATE 100 MG TAB PO SCH (21:24)
[2020-11-13] MEDS: traZODone 50 MG TAB PO PRN (21:24)
[2020-11-14] MEDS: LEVOTHYROXINE 100MCG TABLET (0.1MG) PO SCH (05:32)
[2020-11-14 06:32] VITALS: BP 150/74
--- NOTE | 2020-11-14 09:22 | MHIPNPDOC ---
[facility] Progress Note Progress Note DATE OF SERVICE: 11/14/20 The patient cooperated with the Seroquel and Depakote but didn't take the risperidone. She is still very irritable, loud and screaming and does not make any sense and grossly disorganized. She however, is much more alert and not sedated and not unsteady on her feet. She also began to eat much better and is in no physical complaint. I will change her risperidone to 2 mg twice a day and add Ativan to bring some sedating effect since the patient is getting more loud and agitated. HISTORY: . VITAL SIGNS: See below. NEW TEST RESULTS: . CURRENT MEDICATIONS: See below. MENTAL STATUS EXAMINATION: Patient is a 70-year old female, who is loud and agitated. Speech: Is screaming nonsensically. Language skills are poor . Thought processes including: Scattered fragmented and grossly disorganized. Thought content: , Unable to fully evaluate. Abstract reasoning, and computation: Poor . Description of associations: , Loose and fragmented. Description of abnormal or psychotic thoughts: Appears irritable, angry, paranoid. Judgment: poor. Insight: very poor. Orientation: Appears oriented to place. Recent and remote memory: , Poor. Attention span and concentration: , Poor. Language: . Fund of knowledge: . Mood: , Angry, hostile, irritable. Affect: Labile and agitated. DIAGNOSES: 1. . Schizoaffective disorder 2. ., Rule out bipolar disorder type I, mixed, with psychosis 3. . ASSESSMENT:No improvement MANAGEMENT PLAN: Stabilized with the medications. Supportive therapy. TIME SPENT: 20 minutes. Vital Signs Vital Signs Date Time Temp Pulse Resp B/P (MAP) Pulse Ox O2 Delivery O2 Flow Rate FiO2 11/14/20 06:32 97.3 106 20 150/74 (99) 96 Room Air Current Medications Current Medications Medications (Trade) Dose Ordered Sig/Marisa Route PRN Reason Start Time Stop Time Status Last Admin Dose Admin Acetaminophen (Tylenol Tab) 650 mg Q6HP PRN PO HEADACHE or MILD DISCOMFORT 11/11/20 19:40 Al Hydrox/Mg Hydrox/Simethicone (Mylanta) 30 ml Q4HP PRN PO HEARTBURN/INDIGESTION 11/11/20 19:40 Amlodipine Besylate (Norvasc) 5 mg DAILY PO 11/12/20 09:00 11/13/20 11:35 Divalproex Sodium (Depakote Sprinkles) 500 mg BID PO 11/13/20 09:00 11/13/20 21:24 Divalproex Sodium (Depakote Er) 500 mg BID PO 11/13/20 09:00 11/13/20 09:00 DC Docusate Sodium (Colace) 100 mg BID PO 11/12/20 09:00 11/13/20 21:24 Levetiracetam (Keppra Oral Solution) 500 mg BID PO 11/12/20 09:00 11/13/20 21:23 Levothyroxine Sodium (Synthroid) 100 mcg DAILY@06 PO 11/12/20 06:00 11/14/20 05:32 Lorazepam (Ativan) 1 mg BID PO 11/14/20 09:00 Magnesium Hydroxide (Milk Of Magnesia) 30 ml DAILYPRN PRN PO CONSTIPATION 11/11/20 19:40 Pantoprazole Sodium (Protonix) 40 mg DAILY PO 11/12/20 09:00 11/12/20 09:56 Polyethylene Glycol (Miralax) 1 pkt DAILY PO 11/12/20 09:00 11/13/20 11:34 Quetiapine Fumarate (SEROquel) 100 mg QHS PO 11/13/20 21:00 11/13/20 21:24 Risperidone (RisperDAL LIQUID) 4 mg QHS PO 11/12/20 21:00 11/14/20 08:57 DC 11/12/20 21:48 Risperidone (RisperDAL) 2 mg BID PO 11/14/20 09:00 Trazodone HCl (Desyrel) 50 mg QHSP PRN PO INSOMNIA 11/11/20 19:40 11/13/20 21:24 Allergies Coded Allergies: Sulfa (Sulfonamide Antibiotics) (Verified Allergy, Unknown, 01/21/19) aspirin (Verified Allergy, Unknown, 01/21/19) MARISOL HURD M.D. Nov 14, 2020 09:22
[2020-11-14] MEDS: DIVALPROEX SPRINKLE 125 MG CAP PO SCH ×2 (09:27→21:27)
[2020-11-14] MEDS: DOCUSATE SODIUM 100MG CAPSULE PO SCH ×2 (09:28→21:28)
[2020-11-14] MEDS: risperiDONE 2 MG TAB PO SCH ×2 (09:28→21:29)
[2020-11-14] MEDS: PANTOPRAZOLE 40MG TAB (PROTONIX) PO SCH (09:28)
[2020-11-14] MEDS: MIRALAX *UNIT DOSE* 17GM PACKET PO SCH (09:28)
[2020-11-14] MEDS: amLODIPine 5 MG TAB PO SCH (09:28)
[2020-11-14] MEDS: LORazepam 1 MG TAB PO SCH ×2 (09:29→21:29)
[2020-11-14] MEDS: levETIRAcetam ORAL SOLUTION 500 MG/5 ML UDC PO SCH ×2 (09:29→21:00)
[2020-11-14 16:07] VITALS: BP 127/60
[2020-11-14 16:08] VITALS: BP 119/86
[2020-11-14] MEDS: QUEtiapine FUMARATE 100 MG TAB PO SCH (21:28)
[2020-11-15] MEDS: MIRALAX *UNIT DOSE* 17GM PACKET PO SCH (07:54)
[2020-11-15] MEDS: levETIRAcetam ORAL SOLUTION 500 MG/5 ML UDC PO SCH ×2 (07:54→21:49)
[2020-11-15] MEDS: DIVALPROEX SPRINKLE 125 MG CAP PO SCH ×2 (07:54→21:50)
[2020-11-15] MEDS: LEVOTHYROXINE 100MCG TABLET (0.1MG) PO SCH (07:55)
[2020-11-15] MEDS: risperiDONE 2 MG TAB PO SCH ×2 (07:55→21:50)
[2020-11-15] MEDS: amLODIPine 5 MG TAB PO SCH (07:55)
[2020-11-15] MEDS: PANTOPRAZOLE 40MG TAB (PROTONIX) PO SCH (07:55)
[2020-11-15] MEDS: DOCUSATE SODIUM 100MG CAPSULE PO SCH ×2 (07:55→21:49)
[2020-11-15] MEDS: LORazepam 1 MG TAB PO SCH ×2 (07:55→21:50)
[2020-11-15 08:16] VITALS: BP 124/62
--- NOTE | 2020-11-15 10:31 | MHIPNPDOC ---
[facility] Progress Note Progress Note DATE OF SERVICE: 11/15/20 Patient is fully cooperated with the medicine and has no complaint of side effect and appears in a little better control and contact. She appears alert and was eating breakfast and not as loud or agitated. She is still mumbling to herself and not answering any questions and relevant manner, but she is not screaming and she is not repetitive and is much more subdued. She does not appear unsteady and is not sedated and in much better control. Her thoughts are still very disorganized, was showing improved behavior. She'll continue with her current treatment HISTORY: . VITAL SIGNS: See below. NEW TEST RESULTS: . CURRENT MEDICATIONS: See below. MENTAL STATUS EXAMINATION: Patient is a 70-year old female, who is , alert and in no acute distress. Speech: Is a relevant and not able to give any coherent answer. Language skills are poor . Thought processes including: Loosened preoccupied. Thought content: Rambling and unable to evaluate. Abstract reasoning, and computation: , Poor. Description of associations: , Disorganized. Description of abnormal or psychotic thoughts: Remains a disorganized. Judgment: , Poor. Insight: poor. Orientation: , Difficult to evaluate. Recent and remote memory: , Poor. Attention span and concentration: Poor . Language: . Fund of knowledge: . Mood: Mother. As angry. Affect: , Not as agitated, but labile. DIAGNOSES: 1. . Schizoaffective disorder 2. . 3. . ASSESSMENT:Slight improvement cooperating with the medications MANAGEMENT PLAN: [Continued the current treatment]. TIME SPENT: [20] minutes. Vital Signs Vital Signs Date Time Temp Pulse Resp B/P (MAP) Pulse Ox O2 Delivery O2 Flow Rate FiO2 11/15/20 08:16 97.7 80 16 124/62 (82) 95 Room Air Current Medications Current Medications Medications (Trade) Dose Ordered Sig/Marisa Route PRN Reason Start Time Stop Time Status Last Admin Dose Admin Acetaminophen (Tylenol Tab) 650 mg Q6HP PRN PO HEADACHE or MILD DISCOMFORT 11/11/20 19:40 Al Hydrox/Mg Hydrox/Simethicone (Mylanta) 30 ml Q4HP PRN PO HEARTBURN/INDIGESTION 11/11/20 19:40 Amlodipine Besylate (Norvasc) 5 mg DAILY PO 11/12/20 09:00 11/15/20 07:55 Divalproex Sodium (Depakote Sprinkles) 500 mg BID PO 11/13/20 09:00 11/15/20 07:54 Divalproex Sodium (Depakote Er) 500 mg BID PO 11/13/20 09:00 11/13/20 09:00 DC Docusate Sodium (Colace) 100 mg BID PO 11/12/20 09:00 11/15/20 07:55 Levetiracetam (Keppra Oral Solution) 500 mg BID PO 11/12/20 09:00 11/15/20 07:54 Levothyroxine Sodium (Synthroid) 100 mcg DAILY@06 PO 11/12/20 06:00 11/15/20 07:55 Lorazepam (Ativan) 1 mg BID PO 11/14/20 09:00 11/15/20 07:55 Magnesium Hydroxide (Milk Of Magnesia) 30 ml DAILYPRN PRN PO CONSTIPATION 11/11/20 19:40 Pantoprazole Sodium (Protonix) 40 mg DAILY PO 11/12/20 09:00 11/15/20 07:55 Polyethylene Glycol (Miralax) 1 pkt DAILY PO 11/12/20 09:00 11/15/20 07:54 Quetiapine Fumarate (SEROquel) 100 mg QHS PO 11/13/20 21:00 11/14/20 21:28 Risperidone (RisperDAL LIQUID) 4 mg QHS PO 11/12/20 21:00 11/14/20 08:57 DC 11/12/20 21:48 Risperidone (RisperDAL) 2 mg BID PO 11/14/20 09:00 11/15/20 07:55 Trazodone HCl (Desyrel) 50 mg QHSP PRN PO INSOMNIA 11/11/20 19:40 11/13/20 21:24 Allergies Coded Allergies: Sulfa (Sulfonamide Antibiotics) (Verified Allergy, Unknown, 01/21/19) aspirin (Verified Allergy, Unknown, 01/21/19) MARISOL HURD M.D. Nov 15, 2020 10:31
[2020-11-15 16:13] VITALS: BP 118/57
[2020-11-15] MEDS: QUEtiapine FUMARATE 100 MG TAB PO SCH (21:49)
[2020-11-16 00:16] VITALS: BP 131/59
--- NOTE | 2020-11-16 09:28 | MHIPNPDOC ---
[facility] Progress Note Progress Note DATE OF SERVICE: 11/16/20 The patient has cooperated with all the medicine and is finally sleeping since 2 AM this morning. She is definitely showing marked reduction in psychomotor cira tation and is in better control.. I'm unable to fully evaluate her mental status due to her sleeping, but clearly she needs some rest. We will get valproic acid level and CMP tomorrow morning for evaluation. HISTORY: . VITAL SIGNS: See below. NEW TEST RESULTS: . CURRENT MEDICATIONS: See below. MENTAL STATUS EXAMINATION: Patient is a 70 -year old female, who is in no acute distress. Speech: Is patient is sleeping . Language skills are been poor. Thought processes including: Been very pressured and scattered. Thought content: , Unable to evaluate. Abstract reasoning, and computation: Been very poor. Description of associations: Been very frightened to scattered. Description of abnormal or psychotic thoughts: Has been agitated, but showing some improvement. Judgment: , Poor. Insight: poor. Orientation: . Recent and remote memory: . Attention span and concentration: . Language: . Fund of knowledge: . Mood: Been irritable, angry. Affect: Been very labile. DIAGNOSES: 1. . Schizoaffective disorder 2. . 3. . ASSESSMENT:[Showing some improvement] MANAGEMENT PLAN: Needs further stabilization. We will reevaluate with the blood work. TIME SPENT: [15] minutes. Vital Signs Vital Signs Date Time Temp Pulse Resp B/P (MAP) Pulse Ox O2 Delivery O2 Flow Rate FiO2 11/16/20 00:16 97.3 104 20 131/59 (83) 97 Room Air Current Medications Current Medications Medications (Trade) Dose Ordered Sig/Marisa Route PRN Reason Start Time Stop Time Status Last Admin Dose Admin Acetaminophen (Tylenol Tab) 650 mg Q6HP PRN PO HEADACHE or MILD DISCOMFORT 11/11/20 19:40 Al Hydrox/Mg Hydrox/Simethicone (Mylanta) 30 ml Q4HP PRN PO HEARTBURN/INDIGESTION 11/11/20 19:40 Amlodipine Besylate (Norvasc) 5 mg DAILY PO 11/12/20 09:00 11/15/20 07:55 Divalproex Sodium (Depakote Sprinkles) 500 mg BID PO 11/13/20 09:00 11/15/20 21:50 Divalproex Sodium (Depakote Er) 500 mg BID PO 11/13/20 09:00 11/13/20 09:00 DC Docusate Sodium (Colace) 100 mg BID PO 11/12/20 09:00 11/15/20 21:49 Levetiracetam (Keppra Oral Solution) 500 mg BID PO 11/12/20 09:00 11/15/20 21:49 Levothyroxine Sodium (Synthroid) 100 mcg DAILY@06 PO 11/12/20 06:00 11/15/20 07:55 Lorazepam (Ativan) 1 mg BID PO 11/14/20 09:00 11/15/20 21:50 Magnesium Hydroxide (Milk Of Magnesia) 30 ml DAILYPRN PRN PO CONSTIPATION 11/11/20 19:40 Pantoprazole Sodium (Protonix) 40 mg DAILY PO 11/12/20 09:00 11/15/20 07:55 Polyethylene Glycol (Miralax) 1 pkt DAILY PO 11/12/20 09:00 11/15/20 07:54 Quetiapine Fumarate (SEROquel) 100 mg QHS PO 11/13/20 21:00 11/15/20 21:49 Risperidone (RisperDAL LIQUID) 4 mg QHS PO 11/12/20 21:00 11/14/20 08:57 DC 11/12/20 21:48 Risperidone (RisperDAL) 2 mg BID PO 11/14/20 09:00 11/15/20 21:50 Trazodone HCl (Desyrel) 50 mg QHSP PRN PO INSOMNIA 11/11/20 19:40 11/13/20 21:24 Allergies Coded Allergies: Sulfa (Sulfonamide Antibiotics) (Verified Allergy, Unknown, 01/21/19) aspirin (Verified Allergy, Unknown, 01/21/19) MARISOL HURD M.D. Nov 16, 2020 09:28
[2020-11-16] MEDS: levETIRAcetam ORAL SOLUTION 500 MG/5 ML UDC PO SCH ×2 (10:33→20:34)
[2020-11-16] MEDS: DOCUSATE SODIUM 100MG CAPSULE PO SCH ×2 (10:33→20:33)
[2020-11-16] MEDS: risperiDONE 2 MG TAB PO SCH ×2 (10:33→20:33)
[2020-11-16] MEDS: LEVOTHYROXINE 100MCG TABLET (0.1MG) PO SCH (10:34)
[2020-11-16] MEDS: LORazepam 1 MG TAB PO SCH ×2 (10:34→20:33)
[2020-11-16] MEDS: PANTOPRAZOLE 40MG TAB (PROTONIX) PO SCH (10:34)
[2020-11-16] MEDS: amLODIPine 5 MG TAB PO SCH (10:34)
[2020-11-16] MEDS: DIVALPROEX SPRINKLE 125 MG CAP PO SCH ×2 (10:34→20:34)
[2020-11-16] MEDS: MIRALAX *UNIT DOSE* 17GM PACKET PO SCH (10:35)
[2020-11-16 10:48] VITALS: BP 146/63
[2020-11-16 16:01] VITALS: BP 142/76
[2020-11-16] MEDS: QUEtiapine FUMARATE 100 MG TAB PO SCH (20:33)
--- NOTE | 2020-11-17 09:01 | MHIPNPDOC ---
[facility] Progress Note Progress Note DATE OF SERVICE: 11/17/20 The patient slept about 10 hours yesterday and is still sleeping this morning. She does not appear to be lethargic and has been awake and responsive in between and has not been aggressive or agitated. She is getting much needed for sleep, so we will not disturb the rest. She is on one-to-one observation, and has been eating and drinking in between. She is going to have a CMP and valproic acid level done today. We'll reduce Ativan to half milligram twice a day and discontinued in the next 2-3 days. HISTORY: . VITAL SIGNS: See below. NEW TEST RESULTS: . CURRENT MEDICATIONS: See below. MENTAL STATUS EXAMINATION: Patient is a 70-year old female, who is resting comfortably. Speech: Is not been as loud or fragmented. Language skills are poor. Thought processes including: Still quite loose and fragmented. Thought content: , Unable to evaluate. Abstract reasoning, and computation: poor. Description of associations: Loose]. Description of abnormal or psychotic thoughts: , Disorganized thinking. Judgment: poor. Insight: poor]. Orientation: , Unable to evaluate. Recent and remote memory: poor]. Attention span and concentration: . Language: . Fund of knowledge: . Mood: , Not as hostile and angry. Affect: Not been as agitated . DIAGNOSES: 1. . Schizoaffective disorder 2. . 3. . ASSESSMENT:Showing marked reduction in agitation MANAGEMENT PLAN: . Continued the risperidone and Depakote and supportive therapy TIME SPENT: 15 minutes. Vital Signs Vital Signs Date Time Temp Pulse Resp B/P (MAP) Pulse Ox O2 Delivery O2 Flow Rate FiO2 11/16/20 16:01 98.0 98 15 142/76 (98) 97 Room Air Current Medications Current Medications Medications (Trade) Dose Ordered Sig/Marisa Route PRN Reason Start Time Stop Time Status Last Admin Dose Admin Acetaminophen (Tylenol Tab) 650 mg Q6HP PRN PO HEADACHE or MILD DISCOMFORT 11/11/20 19:40 Al Hydrox/Mg Hydrox/Simethicone (Mylanta) 30 ml Q4HP PRN PO HEARTBURN/INDIGESTION 11/11/20 19:40 Amlodipine Besylate (Norvasc) 5 mg DAILY PO 11/12/20 09:00 11/16/20 10:34 Divalproex Sodium (Depakote Sprinkles) 500 mg BID PO 11/13/20 09:00 11/16/20 20:34 Divalproex Sodium (Depakote Er) 500 mg BID PO 11/13/20 09:00 11/13/20 09:00 DC Docusate Sodium (Colace) 100 mg BID PO 11/12/20 09:00 11/16/20 20:33 Levetiracetam (Keppra Oral Solution) 500 mg BID PO 11/12/20 09:00 11/16/20 20:34 Levothyroxine Sodium (Synthroid) 100 mcg DAILY@06 PO 11/12/20 06:00 11/16/20 10:34 Lorazepam (Ativan) 0.5 mg BID PO 11/17/20 09:00 Lorazepam (Ativan) 1 mg BID PO 11/14/20 09:00 11/17/20 07:27 DC 11/16/20 20:33 Magnesium Hydroxide (Milk Of Magnesia) 30 ml DAILYPRN PRN PO CONSTIPATION 11/11/20 19:40 Pantoprazole Sodium (Protonix) 40 mg DAILY PO 11/12/20 09:00 11/16/20 10:34 Polyethylene Glycol (Miralax) 1 pkt DAILY PO 11/12/20 09:00 11/16/20 10:35 Quetiapine Fumarate (SEROquel) 100 mg QHS PO 11/13/20 21:00 11/16/20 20:33 Risperidone (RisperDAL LIQUID) 4 mg QHS PO 11/12/20 21:00 11/14/20 08:57 DC 11/12/20 21:48 Risperidone (RisperDAL) 2 mg BID PO 11/14/20 09:00 11/16/20 20:33 Trazodone HCl (Desyrel) 50 mg QHSP PRN PO INSOMNIA 11/11/20 19:40 11/13/20 21:24 Allergies Coded Allergies: Sulfa (Sulfonamide Antibiotics) (Verified Allergy, Unknown, 01/21/19) aspirin (Verified Allergy, Unknown, 01/21/19) MARISOL HURD M.D. Nov 17, 2020 09:01
[2020-11-17] MEDS: risperiDONE 2 MG TAB PO SCH ×2 (09:22→19:56)
[2020-11-17] MEDS: amLODIPine 5 MG TAB PO SCH (09:23)
[2020-11-17] MEDS: PANTOPRAZOLE 40MG TAB (PROTONIX) PO SCH (09:23)
[2020-11-17] MEDS: DOCUSATE SODIUM 100MG CAPSULE PO SCH ×2 (09:23→19:56)
[2020-11-17] MEDS: MIRALAX *UNIT DOSE* 17GM PACKET PO SCH (09:23)
[2020-11-17] MEDS: DIVALPROEX SPRINKLE 125 MG CAP PO SCH ×2 (09:23→19:56)
[2020-11-17] MEDS: LORazepam 0.5 MG TAB PO SCH ×2 (09:23→19:56)
[2020-11-17] MEDS: LEVOTHYROXINE 100MCG TABLET (0.1MG) PO SCH (09:24)
[2020-11-17 09:30] VITALS: BP 120/67
[2020-11-17] MEDS: levETIRAcetam ORAL SOLUTION 500 MG/5 ML UDC PO SCH ×2 (09:58→19:56)
[2020-11-17 10:51] LABS: BILIRUBIN,TOTAL 0.4 MG/DL (0.2-1.0); CALCIUM LEVEL 8.6 MG/DL (8.8-10.2); CREATININE FOR GFR 1.04 MG/DL (0.55-1.30); GLOMERULAR FILTRATION RATE 55.9 (>45); POTASSIUM SERUM 4.2 MEQ/L (3.5-5.1)
[2020-11-17 18:53] VITALS: BP 140/76
[2020-11-17] MEDS: traZODone 50 MG TAB PO PRN (19:56)
[2020-11-17] MEDS: QUEtiapine FUMARATE 100 MG TAB PO SCH (19:56)
[2020-11-18 06:00] VITALS: BP 169/81
[2020-11-18] MEDS: LEVOTHYROXINE 100MCG TABLET (0.1MG) PO SCH (06:31)
--- NOTE | 2020-11-18 08:36 | MHIPNPDOC ---
[facility] Progress Note Progress Note DATE OF SERVICE: 11/18/20 The patient slept through the night and this morning she is still quite drowsy and somewhat sedated. She has been eating and drinking and had no more incident of fall., CMP, result shows no significant abnormal findings and her valproic acid level was 81, which is in good therapeutic range. She is in much better control and has not been screaming more agitated and was able to do her ADLs with minimum assistance. I will discontinue Ativan and Seroquel and continue with Depakote and risperidone, but close observation for stabilization. HISTORY: . VITAL SIGNS: See below. NEW TEST RESULTS: . CURRENT MEDICATIONS: See below. MENTAL STATUS EXAMINATION: Patient is a 70-year old female, who is in no acute distress and in good control. Speech: Is , not very productive. Language skills are fair. Thought processes including: , Not spontaneous. Thought content: Does not appear to be grossly delusional or . Abstract reasoning, and computation: , Poor. Description of associations: , Not productive. Description of abnormal or psychotic thoughts: Does not appear to be actively hallucinating. Judgment: poor. Insight: poor. Orientation: Appears oriented to the place. Recent and remote memory: Poor . Attention span and concentration: poor. Language: . Fund of knowledge: . Mood: Mother is angry or hostile . Affect: , Not agitated. DIAGNOSES: 1. . Schizoaffective disorder 2. ]. 3. . ASSESSMENT:[Showing improvement, but moderately sedated] MANAGEMENT PLAN: [, Discontinue Seroquel and Ativan. Continue with the Depakote and the risperidone for stabilization]. TIME SPENT: [20] minutes. Vital Signs Vital Signs Date Time Temp Pulse Resp B/P (MAP) Pulse Ox O2 Delivery O2 Flow Rate FiO2 11/18/20 06:00 98.0 101 20 169/81 (110) 98 11/17/20 09:30 Room Air Laboratory Data 24H Labs Laboratory Tests 2 11/17/20 10:08: Anion Gap 7L, Glomerular Filtration Rate 55.9, Calcium Level 8.6L, Total Bilirubin 0.4, Aspartate Amino Transf (AST/SGOT) 27, Alanine Aminotransferase (ALT/SGPT) 21, Alkaline Phosphatase 73, Total Protein 7.0, Albumin 3.0L, Albumin/Globulin Ratio 0.8L 11/17/20 20:10: Valproic Acid (Depakene) Level 81.2 CBC/BMP Laboratory Tests 11/17/20 10:08 Current Medications Current Medications Medications (Trade) Dose Ordered Sig/Marisa Route PRN Reason Start Time Stop Time Status Last Admin Dose Admin Acetaminophen (Tylenol Tab) 650 mg Q6HP PRN PO HEADACHE or MILD DISCOMFORT 11/11/20 19:40 Al Hydrox/Mg Hydrox/Simethicone (Mylanta) 30 ml Q4HP PRN PO HEARTBURN/INDIGESTION 11/11/20 19:40 Amlodipine Besylate (Norvasc) 5 mg DAILY PO 11/12/20 09:00 11/17/20 09:23 Divalproex Sodium (Depakote Sprinkles) 500 mg BID PO 11/13/20 09:00 11/17/20 19:56 Divalproex Sodium (Depakote Er) 500 mg BID PO 11/13/20 09:00 11/13/20 09:00 DC Docusate Sodium (Colace) 100 mg BID PO 11/12/20 09:00 11/17/20 19:56 Levetiracetam (Keppra Oral Solution) 500 mg BID PO 11/12/20 09:00 11/17/20 19:56 Levothyroxine Sodium (Synthroid) 100 mcg DAILY@06 PO 11/12/20 06:00 11/18/20 06:31 Lorazepam (Ativan) 0.5 mg BID PO 11/17/20 09:00 11/17/20 19:56 Lorazepam (Ativan) 1 mg BID PO 11/14/20 09:00 11/17/20 07:27 DC 11/16/20 20:33 Magnesium Hydroxide (Milk Of Magnesia) 30 ml DAILYPRN PRN PO CONSTIPATION 11/11/20 19:40 Pantoprazole Sodium (Protonix) 40 mg DAILY PO 11/12/20 09:00 11/17/20 09:23 Polyethylene Glycol (Miralax) 1 pkt DAILY PO 11/12/20 09:00 11/17/20 09:23 Quetiapine Fumarate (SEROquel) 100 mg QHS PO 11/13/20 21:00 11/17/20 19:56 Risperidone (RisperDAL LIQUID) 4 mg QHS PO 6/19/21 21:00 11/14/20 08:57 DC 11/12/20 21:48 Risperidone (RisperDAL) 2 mg BID PO 11/14/20 09:00 11/17/20 19:56 Trazodone HCl (Desyrel) 50 mg QHSP PRN PO INSOMNIA 11/11/20 19:40 11/17/20 19:56 Allergies Coded Allergies: Sulfa (Sulfonamide Antibiotics) (Verified Allergy, Unknown, 01/21/19) aspirin (Verified Allergy, Unknown, 01/21/19) MARISOL HURD M.D. Nov 18, 2020 08:36
[2020-11-18] MEDS: amLODIPine 5 MG TAB PO SCH (11:15)
[2020-11-18] MEDS: levETIRAcetam ORAL SOLUTION 500 MG/5 ML UDC PO SCH ×2 (11:15→20:49)
[2020-11-18] MEDS: PANTOPRAZOLE 40MG TAB (PROTONIX) PO SCH (11:16)
[2020-11-18] MEDS: MIRALAX *UNIT DOSE* 17GM PACKET PO SCH (11:16)
[2020-11-18] MEDS: DOCUSATE SODIUM 100MG CAPSULE PO SCH ×2 (11:16→20:49)
[2020-11-18] MEDS: risperiDONE 2 MG TAB PO SCH ×2 (11:16→20:50)
[2020-11-18] MEDS: DIVALPROEX SPRINKLE 125 MG CAP PO SCH ×2 (11:17→20:50)
[2020-11-18 16:03] VITALS: BP 120/83
[2020-11-19] MEDS: LEVOTHYROXINE 100MCG TABLET (0.1MG) PO SCH ×2 (06:00→11:05)
[2020-11-19] MEDS: DOCUSATE SODIUM 100MG CAPSULE PO SCH ×3 (09:00→20:51)
[2020-11-19] MEDS: MIRALAX *UNIT DOSE* 17GM PACKET PO SCH (09:00)
[2020-11-19] MEDS: levETIRAcetam ORAL SOLUTION 500 MG/5 ML UDC PO SCH ×2 (11:03→20:49)
[2020-11-19] MEDS: DIVALPROEX SPRINKLE 125 MG CAP PO SCH ×2 (11:04→20:49)
[2020-11-19] MEDS: PANTOPRAZOLE 40MG TAB (PROTONIX) PO SCH (11:04)
[2020-11-19] MEDS: amLODIPine 5 MG TAB PO SCH (11:05)
[2020-11-19] MEDS: risperiDONE 2 MG TAB PO SCH ×2 (11:05→20:49)
[2020-11-19 16:19] VITALS: BP 144/65
[2020-11-20] MEDS: DOCUSATE SODIUM 100MG CAPSULE PO SCH ×2 (08:15→21:02)
[2020-11-20] MEDS: MIRALAX *UNIT DOSE* 17GM PACKET PO SCH (08:15)
[2020-11-20] MEDS: LEVOTHYROXINE 100MCG TABLET (0.1MG) PO SCH (08:16)
[2020-11-20] MEDS: PANTOPRAZOLE 40MG TAB (PROTONIX) PO SCH (09:09)
[2020-11-20] MEDS: levETIRAcetam ORAL SOLUTION 500 MG/5 ML UDC PO SCH ×2 (09:09→21:01)
[2020-11-20] MEDS: risperiDONE 2 MG TAB PO SCH ×2 (09:09→21:02)
[2020-11-20] MEDS: amLODIPine 5 MG TAB PO SCH (09:09)
[2020-11-20] MEDS: DIVALPROEX SPRINKLE 125 MG CAP PO SCH ×2 (09:10→21:02)
[2020-11-20 16:23] VITALS: BP 146/70
[2020-11-21] MEDS: LEVOTHYROXINE 100MCG TABLET (0.1MG) PO SCH ×2 (06:00→06:35)
--- NOTE | 2020-11-21 09:40 | MHIPNPDOC ---
[facility] Progress Note Progress Note DATE OF SERVICE: 11/21/20 The patient appears to be quite sedated in the morning and very difficult to be aroused.. She slept 3-4 hours in the night and sleeps late in the morning and difficult to awake. She is showing no bizarre or agitated behavior and cooperating with the nursing care, but overall not very productive and sedated. I will reduce risperidone to 2 mg at night, but continue the Depakote. Supportive therapy HISTORY: . VITAL SIGNS: See below. NEW TEST RESULTS: . CURRENT MEDICATIONS: See below. MENTAL STATUS EXAMINATION: Patient is a 70 -year old female, who is in no acute distress, but drowsy. Speech: Is , not productive. Language skills are , not spontaneous. Thought processes including: , Not as fragmented. Thought content: Difficult to evaluate. Abstract reasoning, and computation: poor. Description of associations: , Not productive. Description of abnormal or psychotic thoughts: Mother. Actively hallucinating. Judgment: poor. Insight: poor. Orientation: Appears oriented to the place. Recent and remote memory: , Unable to evaluate, but no gross impairment. Attention span and concentration: poor. Language: . Fund of knowledge: . Mood: Not been as angry. Affect: Blunted. DIAGNOSES: 1. . Schizoaffective disorder 2. . 3. . ASSESSMENT: Cooperating with the medicine, but quite sedated MANAGEMENT PLAN: Reduce risperidone, continue with the supportive therapy . TIME SPENT: 50 minutes. Vital Signs Vital Signs Date Time Temp Pulse Resp B/P (MAP) Pulse Ox O2 Delivery O2 Flow Rate FiO2 11/20/20 16:23 98.3 95 18 146/70 (95) 96 Room Air Current Medications Current Medications Medications (Trade) Dose Ordered Sig/Marisa Route PRN Reason Start Time Stop Time Status Last Admin Dose Admin Acetaminophen (Tylenol Tab) 650 mg Q6HP PRN PO HEADACHE or MILD DISCOMFORT 11/11/20 19:40 Al Hydrox/Mg Hydrox/Simethicone (Mylanta) 30 ml Q4HP PRN PO HEARTBURN/INDIGESTION 11/11/20 19:40 Amlodipine Besylate (Norvasc) 5 mg DAILY PO 11/12/20 09:00 11/20/20 09:09 Divalproex Sodium (Depakote Sprinkles) 500 mg BID PO 11/13/20 09:00 11/20/20 21:02 Divalproex Sodium (Depakote Er) 500 mg BID PO 11/13/20 09:00 11/13/20 09:00 DC Docusate Sodium (Colace) 100 mg BID PO 11/12/20 09:00 11/20/20 21:02 Levetiracetam (Keppra Oral Solution) 500 mg BID PO 11/12/20 09:00 11/20/20 21:01 Levothyroxine Sodium (Synthroid) 100 mcg DAILY@06 PO 11/12/20 06:00 11/20/20 08:16 Lorazepam (Ativan) 0.5 mg BID PO 11/17/20 09:00 11/18/20 08:31 DC 11/17/20 19:56 Lorazepam (Ativan) 1 mg BID PO 11/14/20 09:00 11/17/20 07:27 DC 11/16/20 20:33 Magnesium Hydroxide (Milk Of Magnesia) 30 ml DAILYPRN PRN PO CONSTIPATION 11/11/20 19:40 Pantoprazole Sodium (Protonix) 40 mg DAILY PO 11/12/20 09:00 11/20/20 09:09 Polyethylene Glycol (Miralax) 1 pkt DAILY PO 11/12/20 09:00 11/18/20 11:16 Quetiapine Fumarate (SEROquel) 100 mg QHS PO 11/13/20 21:00 11/18/20 08:31 DC 11/17/20 19:56 Risperidone (RisperDAL LIQUID) 4 mg QHS PO 11/12/20 21:00 11/14/20 08:57 DC 11/12/20 21:48 Risperidone (RisperDAL) 2 mg BID PO 11/14/20 09:00 11/20/20 21:02 Trazodone HCl (Desyrel) 50 mg QHSP PRN PO INSOMNIA 11/11/20 19:40 11/17/20 19:56 Allergies Coded Allergies: Sulfa (Sulfonamide Antibiotics) (Verified Allergy, Unknown, 01/21/19) aspirin (Verified Allergy, Unknown, 01/21/19) MARISOL HURD M.D. Nov 21, 2020 09:40
[2020-11-21] MEDS: levETIRAcetam ORAL SOLUTION 500 MG/5 ML UDC PO SCH ×2 (10:07→20:36)
[2020-11-21] MEDS: PANTOPRAZOLE 40MG TAB (PROTONIX) PO SCH (10:07)
[2020-11-21] MEDS: DOCUSATE SODIUM 100MG CAPSULE PO SCH ×2 (10:07→20:36)
[2020-11-21] MEDS: MIRALAX *UNIT DOSE* 17GM PACKET PO SCH (10:07)
[2020-11-21] MEDS: amLODIPine 5 MG TAB PO SCH (10:07)
[2020-11-21] MEDS: DIVALPROEX SPRINKLE 125 MG CAP PO SCH ×2 (10:08→20:36)
[2020-11-21] MEDS: risperiDONE 2 MG TAB PO SCH (20:36)
[2020-11-22] MEDS: LEVOTHYROXINE 100MCG TABLET (0.1MG) PO SCH (06:31)
--- NOTE | 2020-11-22 07:54 | MHIPNPDOC ---
[facility] Progress Note Progress Note DATE OF SERVICE: 11/22/20 The patient is awake and sitting on a chair and offers no new complaints. She is however quite irritable, gets angry without much provocation, but is clearly a bautista that she is in hospital. She is able to answer with a coherent response to some selective questions. She admits that she has a place that she can go back to that is not sure whether she is behind the rent on not. She claims that she couldn't sleep last night because there are so much noises, but she has been sleeping on and off throughout the day. She is definitely not as sedated after medications were adjusted, but remains quite labile, irritable and not very productive with significant paranoid flavor. HISTORY: . VITAL SIGNS: See below. NEW TEST RESULTS: . CURRENT MEDICATIONS: See below. MENTAL STATUS EXAMINATION: Patient is a 70-year old female, who is , alert and awake. Speech: Is more productive, but not spontaneous. Language skills are fair. Thought processes including: , Able to answer relevantly. At times. Thought content: Denies any suicidal thoughts. Abstract reasoning, and computation: poor. Description of associations: At times, coherent. Description of abnormal or psychotic thoughts: Marked paranoid flavor. Judgment: poor. Insight: poor. Orientation: , Oriented to place but not to time. Recent and remote memory: fair. Attention span and concentration: poor. Language: . Fund of knowledge: . Mood: , Somewhat irritable. Affect: Labile. DIAGNOSES: 1. . Schizoaffective disorder 2. . 3. ]. ASSESSMENT:[Needs further stabilization remained quite irritable, labile and paranoid] MANAGEMENT PLAN: [Continued the Depakote may increase the risperidone]. TIME SPENT: [20 minutes. Vital Signs Vital Signs Date Time Temp Pulse Resp B/P (MAP) Pulse Ox O2 Delivery O2 Flow Rate FiO2 11/20/20 16:23 98.3 95 18 146/70 (95) 96 Room Air Current Medications Current Medications Medications (Trade) Dose Ordered Sig/Marisa Route PRN Reason Start Time Stop Time Status Last Admin Dose Admin Acetaminophen (Tylenol Tab) 650 mg Q6HP PRN PO HEADACHE or MILD DISCOMFORT 11/11/20 19:40 Al Hydrox/Mg Hydrox/Simethicone (Mylanta) 30 ml Q4HP PRN PO HEARTBURN/INDIGESTION 11/11/20 19:40 Amlodipine Besylate (Norvasc) 5 mg DAILY PO 11/12/20 09:00 11/21/20 10:07 Divalproex Sodium (Depakote Sprinkles) 500 mg BID PO 11/13/20 09:00 11/21/20 20:36 Divalproex Sodium (Depakote Er) 500 mg BID PO 11/13/20 09:00 11/13/20 09:00 DC Docusate Sodium (Colace) 100 mg BID PO 11/12/20 09:00 11/21/20 20:36 Levetiracetam (Keppra Oral Solution) 500 mg BID PO 11/12/20 09:00 11/21/20 20:36 Levothyroxine Sodium (Synthroid) 100 mcg DAILY@06 PO 11/12/20 06:00 11/22/20 06:31 Lorazepam (Ativan) 0.5 mg BID PO 11/17/20 09:00 11/18/20 08:31 DC 11/17/20 19:56 Lorazepam (Ativan) 1 mg BID PO 11/14/20 09:00 11/17/20 07:27 DC 11/16/20 20:33 Magnesium Hydroxide (Milk Of Magnesia) 30 ml DAILYPRN PRN PO CONSTIPATION 11/11/20 19:40 Pantoprazole Sodium (Protonix) 40 mg DAILY PO 11/12/20 09:00 11/21/20 10:07 Polyethylene Glycol (Miralax) 1 pkt DAILY PO 11/12/20 09:00 11/21/20 10:07 Quetiapine Fumarate (SEROquel) 100 mg QHS PO 11/13/20 21:00 11/18/20 08:31 DC 11/17/20 19:56 Risperidone (RisperDAL LIQUID) 4 mg QHS PO 11/12/20 21:00 11/14/20 08:57 DC 11/12/20 21:48 Risperidone (RisperDAL) 2 mg BID PO 11/14/20 09:00 11/21/20 09:34 DC 11/20/20 21:02 Risperidone (RisperDAL) 2 mg QHS PO 11/21/20 21:00 11/21/20 20:36 Trazodone HCl (Desyrel) 50 mg QHSP PRN PO INSOMNIA 11/11/20 19:40 11/17/20 19:56 Allergies Coded Allergies: Sulfa (Sulfonamide Antibiotics) (Verified Allergy, Unknown, 01/21/19) aspirin (Verified Allergy, Unknown, 01/21/19) MARISOL HURD M.D. Nov 22, 2020 07:54
[2020-11-22] MEDS: levETIRAcetam ORAL SOLUTION 500 MG/5 ML UDC PO SCH ×2 (10:13→20:40)
[2020-11-22] MEDS: DIVALPROEX SPRINKLE 125 MG CAP PO SCH ×2 (10:13→20:41)
[2020-11-22] MEDS: DOCUSATE SODIUM 100MG CAPSULE PO SCH ×2 (10:13→20:41)
[2020-11-22] MEDS: MIRALAX *UNIT DOSE* 17GM PACKET PO SCH (10:13)
[2020-11-22] MEDS: PANTOPRAZOLE 40MG TAB (PROTONIX) PO SCH (10:14)
[2020-11-22] MEDS: amLODIPine 5 MG TAB PO SCH (10:14)
[2020-11-22 18:37] VITALS: BP 126/81
[2020-11-22] MEDS: risperiDONE 2 MG TAB PO SCH (20:41)
[2020-11-23] MEDS: LEVOTHYROXINE 100MCG TABLET (0.1MG) PO SCH ×3 (05:56→11:42)
[2020-11-23] MEDS: MIRALAX *UNIT DOSE* 17GM PACKET PO SCH (09:00)
--- NOTE | 2020-11-23 09:03 | MHIPNPDOC ---
[facility] Progress Note Progress Note DATE OF SERVICE: 11/23/20 The patient did not sleep last night and is quite drowsy and sleeping in the chair this morning. She is in no acute physical distress and has been in control. She is still irritable, labile and quite disorganized and knees. Continued close observation. I will increase her risperidone at bedtime and add Seroquel 100 mg at bedtime and continue the supportive therapy. HISTORY: . VITAL SIGNS: See below. NEW TEST RESULTS: . CURRENT MEDICATIONS: See below. MENTAL STATUS EXAMINATION: Patient is a 70-year old female, who is the rouse and dozing off in a chair. Speech: Is , not very productive. Language skills are poor. Thought processes including: . Thought content: Difficult to evaluate. Abstract reasoning, and computation: poor. Description of associations: , Disorganized. Description of abnormal or psychotic thoughts: Appears quite paranoid and irritable. Judgment: poor. Insight: very. poor. Orientation: Appears oriented to the place. Recent and remote memory: Difficult to evaluate. Attention span and concentration: . Language: .poor Fund of knowledge: . Mood: , Angry, irritable. Affect: [Labile]. DIAGNOSES: 1. . Schizoaffective disorder 2. . 3. . ASSESSMENT:[Again had the very poor nights of sleep and was moderately agitated] MANAGEMENT PLAN: [, Try to stabilize with the medication change and supportive therapy]. TIME SPENT: [15] minutes. Vital Signs Vital Signs Date Time Temp Pulse Resp B/P (MAP) Pulse Ox O2 Delivery O2 Flow Rate FiO2 11/22/20 18:37 98.2 99 16 126/81 (96) 11/20/20 16:23 96 Room Air Current Medications Current Medications Medications (Trade) Dose Ordered Sig/Marisa Route PRN Reason Start Time Stop Time Status Last Admin Dose Admin Acetaminophen (Tylenol Tab) 650 mg Q6HP PRN PO HEADACHE or MILD DISCOMFORT 11/11/20 19:40 Al Hydrox/Mg Hydrox/Simethicone (Mylanta) 30 ml Q4HP PRN PO HEARTBURN/INDIGESTION 11/11/20 19:40 Amlodipine Besylate (Norvasc) 5 mg DAILY PO 11/12/20 09:00 11/22/20 10:14 Divalproex Sodium (Depakote Sprinkles) 500 mg BID PO 11/13/20 09:00 11/22/20 20:41 Divalproex Sodium (Depakote Er) 500 mg BID PO 11/13/20 09:00 11/13/20 09:00 DC Docusate Sodium (Colace) 100 mg BID PO 11/12/20 09:00 11/22/20 20:41 Levetiracetam (Keppra Oral Solution) 500 mg BID PO 11/12/20 09:00 11/22/20 20:40 Levothyroxine Sodium (Synthroid) 100 mcg DAILY@06 PO 11/12/20 06:00 11/22/20 06:31 Lorazepam (Ativan) 0.5 mg BID PO 11/17/20 09:00 11/18/20 08:31 DC 11/17/20 19:56 Lorazepam (Ativan) 1 mg BID PO 11/14/20 09:00 11/17/20 07:27 DC 11/16/20 20:33 Magnesium Hydroxide (Milk Of Magnesia) 30 ml DAILYPRN PRN PO CONSTIPATION 11/11/20 19:40 Pantoprazole Sodium (Protonix) 40 mg DAILY PO 11/12/20 09:00 11/22/20 10:14 Polyethylene Glycol (Miralax) 1 pkt DAILY PO 11/12/20 09:00 11/22/20 10:13 Quetiapine Fumarate (SEROquel) 100 mg QHS PO 11/13/20 21:00 11/18/20 08:31 DC 11/17/20 19:56 Risperidone (RisperDAL LIQUID) 4 mg QHS PO 11/12/20 21:00 11/14/20 08:57 DC 11/12/20 21:48 Risperidone (RisperDAL) 2 mg BID PO 11/14/20 09:00 11/21/20 09:34 DC 11/20/20 21:02 Risperidone (RisperDAL) 2 mg QHS PO 11/21/20 21:00 11/22/20 20:41 Trazodone HCl (Desyrel) 50 mg QHSP PRN PO INSOMNIA 11/11/20 19:40 11/17/20 19:56 Allergies Coded Allergies: Sulfa (Sulfonamide Antibiotics) (Verified Allergy, Unknown, 01/21/19) aspirin (Verified Allergy, Unknown, 01/21/19) MARISOL HURD M.D. 30, 2021 09:03
[2020-11-23] MEDS: levETIRAcetam ORAL SOLUTION 500 MG/5 ML UDC PO SCH ×2 (11:42→20:59)
[2020-11-23] MEDS: PANTOPRAZOLE 40MG TAB (PROTONIX) PO SCH (11:42)
[2020-11-23] MEDS: DIVALPROEX SPRINKLE 125 MG CAP PO SCH ×2 (11:43→20:58)
[2020-11-23] MEDS: DOCUSATE SODIUM 100MG CAPSULE PO SCH ×2 (11:43→20:58)
[2020-11-23] MEDS: amLODIPine 5 MG TAB PO SCH (11:57)
[2020-11-23 18:34] VITALS: BP 126/69
[2020-11-23] MEDS: risperiDONE 3 MG TAB PO SCH (20:59)
[2020-11-23] MEDS: QUEtiapine FUMARATE 100 MG TAB PO SCH (20:59)
[2020-11-24] MEDS: LEVOTHYROXINE 100MCG TABLET (0.1MG) PO SCH (05:18)
[2020-11-24] MEDS: ACETAMINOPHEN TAB 650MG DOSE (2X325MG) PO PRN ×2 (05:49→23:48)
[2020-11-24 06:18] VITALS: BP 144/73
--- NOTE | 2020-11-24 09:05 | MHIPNPDOC ---
[facility] Progress Note Progress Note DATE OF SERVICE: 11/24/20 The patient slept better last night after the increase of medications and this morning is still sleeping. The nursing staff reports that patient was up and about yesterday and was able to carry on a fairly rational conversation. Reportedly was asking to speak with the M.D. Overall, she seems to be in no acute distress and is showing improved mental status, but due to her morning sedation. She has not been able to fully interview with the M.D. yesterday. I will order routine blood work and the Depakote level to further assess her physical condition. Try to approach this patient. Around lunchtime. HISTORY: . VITAL SIGNS: See below. NEW TEST RESULTS: . CURRENT MEDICATIONS: See below. MENTAL STATUS EXAMINATION: Patient is a 70-year old female, who is in bed in no acute distress. Speech: Is patient is sleeping. Language skills are been fairly good. Thought processes including: Been more coherent and relevant. Lately. Thought content: Not been agitated than not been paranoid. Abstract reasoning, and computation: poor. Description of associations: . Description of abnormal or psychotic thoughts: Showing no gross delusional thinking. Judgment: fair. Insight: poor]. Orientation: Been oriented to place]. Recent and remote memory: Mother. Impaired. Attention span and concentration: . Language: . Fund of knowledge: . Mood: Much less angry, hostile. Affect: More appropriate. DIAGNOSES: 1. . Schizoaffective disorder 2. . 3. . ASSESSMENT: Definitely showing improvement MANAGEMENT PLAN: Continued: Medicine evaluate with the blood work. TIME SPENT: 15 minutes. Vital Signs Vital Signs Date Time Temp Pulse Resp B/P (MAP) Pulse Ox O2 Delivery O2 Flow Rate FiO2 11/24/20 06:18 97.6 95 18 144/73 (96) 95 Room Air Current Medications Current Medications Medications (Trade) Dose Ordered Sig/Marisa Route PRN Reason Start Time Stop Time Status Last Admin Dose Admin Acetaminophen (Tylenol Tab) 650 mg Q6HP PRN PO HEADACHE or MILD DISCOMFORT 11/11/20 19:40 11/24/20 05:49 Al Hydrox/Mg Hydrox/Simethicone (Mylanta) 30 ml Q4HP PRN PO HEARTBURN/INDIGESTION 11/11/20 19:40 Amlodipine Besylate (Norvasc) 5 mg DAILY PO 11/12/20 09:00 11/23/20 11:57 Divalproex Sodium (Depakote Sprinkles) 500 mg BID PO 11/13/20 09:00 11/23/20 20:58 Divalproex Sodium (Depakote Er) 500 mg BID PO 11/13/20 09:00 11/13/20 09:00 DC Docusate Sodium (Colace) 100 mg BID PO 11/12/20 09:00 11/23/20 20:58 Levetiracetam (Keppra Oral Solution) 500 mg BID PO 11/12/20 09:00 11/23/20 20:59 Levothyroxine Sodium (Synthroid) 100 mcg DAILY@06 PO 11/12/20 06:00 11/24/20 05:18 Lorazepam (Ativan) 0.5 mg BID PO 11/17/20 09:00 11/18/20 08:31 DC 11/17/20 19:56 Lorazepam (Ativan) 1 mg BID PO 11/14/20 09:00 11/17/20 07:27 DC 11/16/20 20:33 Magnesium Hydroxide (Milk Of Magnesia) 30 ml DAILYPRN PRN PO CONSTIPATION 11/11/20 19:40 Pantoprazole Sodium (Protonix) 40 mg DAILY PO 11/12/20 09:00 11/23/20 11:42 Polyethylene Glycol (Miralax) 1 pkt DAILY PO 11/12/20 09:00 11/22/20 10:13 Quetiapine Fumarate (SEROquel) 100 mg QHS PO 11/13/20 21:00 11/18/20 08:31 DC 11/17/20 19:56 Quetiapine Fumarate (SEROquel) 100 mg QHS PO 11/23/20 21:00 11/23/20 20:59 Risperidone (RisperDAL LIQUID) 4 mg QHS PO 11/12/20 21:00 11/14/20 08:57 DC 11/12/20 21:48 Risperidone (RisperDAL) 2 mg BID PO 11/14/20 09:00 11/21/20 09:34 DC 11/20/20 21:02 Risperidone (RisperDAL) 2 mg QHS PO 11/21/20 21:00 11/23/20 08:57 DC 11/22/20 20:41 Risperidone (RisperDAL) 3 mg QHS PO 11/23/20 21:00 11/23/20 20:59 Trazodone HCl (Desyrel) 50 mg QHSP PRN PO INSOMNIA 11/11/20 19:40 11/17/20 19:56 Allergies Coded Allergies: Sulfa (Sulfonamide Antibiotics) (Verified Allergy, Unknown, 01/21/19) aspirin (Verified Allergy, Unknown, 01/21/19) MARISOL HURD M.D. Nov 24, 2020 09:05
[2020-11-24] MEDS: MIRALAX *UNIT DOSE* 17GM PACKET PO SCH (10:43)
[2020-11-24] MEDS: DIVALPROEX SPRINKLE 125 MG CAP PO SCH ×2 (10:44→21:53)
[2020-11-24] MEDS: amLODIPine 5 MG TAB PO SCH (10:44)
[2020-11-24] MEDS: levETIRAcetam ORAL SOLUTION 500 MG/5 ML UDC PO SCH ×2 (10:45→21:52)
[2020-11-24] MEDS: DOCUSATE SODIUM 100MG CAPSULE PO SCH ×2 (10:45→21:53)
[2020-11-24] MEDS: PANTOPRAZOLE 40MG TAB (PROTONIX) PO SCH (10:45)
[2020-11-24 17:33] VITALS: BP 118/72
[2020-11-24] MEDS: risperiDONE 3 MG TAB PO SCH (21:53)
[2020-11-24] MEDS: QUEtiapine FUMARATE 100 MG TAB PO SCH (21:53)
[2020-11-25] MEDS: LEVOTHYROXINE 100MCG TABLET (0.1MG) PO SCH (05:18)
[2020-11-25 07:08] LABS: BASO % 0.7 % (0.0-1.0); EOS # 0.1 10^3/uL (0.0-0.5); EOS % 1.9 % (0.0-3.0); LYMPH # 1.2 10^3/uL (1.5-5.0); LYMPH % 27.1 % (24.0-44.0); MEAN CORPUSCULAR HEMOGLOBIN 29.4 pg (27.0-33.0); MEAN CORPUSCULAR HGB CONC 32.4 g/dl (32.0-36.5); MEAN CORPUSCULAR VOLUME 90.9 fl (80.0-96.0); MONO # 0.6 10^3/uL (0.0-0.8); MONO % 14.6 % (2.0-8.0); NEUTROPHILS # 2.4 10^3/uL (1.5-8.5); NEUTROPHILS % 54.8 % (36.0-66.0); PLATELET COUNT, AUTOMATED 193 10^3/uL (150-450); RED BLOOD COUNT 3.74 10^6/uL (4.00-5.40); WHITE BLOOD COUNT 4.3 10^3/uL (4.0-10.0)
[2020-11-25 07:35] LABS: ALBUMIN 2.8 GM/DL (3.2-5.2); BILIRUBIN,TOTAL 0.3 MG/DL (0.2-1.0); CALCIUM LEVEL 8.2 MG/DL (8.8-10.2); CREATININE FOR GFR 0.99 MG/DL (0.55-1.30); GLOMERULAR FILTRATION RATE 59.2 (>45); POTASSIUM SERUM 4.1 MEQ/L (3.5-5.1); TOTAL PROTEIN 6.4 GM/DL (6.4-8.2); VALPROIC ACID (DEPAKOTE) 97.8 UG/ML (50.0-100.0)
[2020-11-25 08:21] VITALS: BP 118/72
[2020-11-25] MEDS: amLODIPine 5 MG TAB PO SCH (09:30)
[2020-11-25] MEDS: MIRALAX *UNIT DOSE* 17GM PACKET PO SCH (09:30)
[2020-11-25] MEDS: levETIRAcetam ORAL SOLUTION 500 MG/5 ML UDC PO SCH ×2 (09:30→22:29)
[2020-11-25] MEDS: DOCUSATE SODIUM 100MG CAPSULE PO SCH ×2 (09:30→22:29)
[2020-11-25] MEDS: DIVALPROEX SPRINKLE 125 MG CAP PO SCH (09:30)
[2020-11-25] MEDS: PANTOPRAZOLE 40MG TAB (PROTONIX) PO SCH (09:30)
--- NOTE | 2020-11-25 11:07 | MHIPNPDOC ---
[facility] Progress Note Progress Note DATE OF SERVICE: 11/25/20 Patient slept last night and this morning she is awake sitting at a desk and eating breakfast. She is rational, coherent and quite appropriate and reports she is feeling better and would like to go home soon. Her CMP is all within normal limits, but Depakote level is 97.8, a little on the higher side. I would decrease the Depakote to 250 mg in the morning and 500 mg at night and continued supportive therapy and develop a safe discharge plan HISTORY: . VITAL SIGNS: See below. NEW TEST RESULTS: . CURRENT MEDICATIONS: See below. MENTAL STATUS EXAMINATION: Patient is a 70 -year old female, who is , alert, awake and pleasant. Speech: Is , coherent, relevant. Language skills are fair. Thought processes including: Rational and coherent. Thought content: Denies any hallucination, paranoia . Abstract reasoning, and computation: fair. Description of associations: Organon. Description of abnormal or psychotic thoughts: Denies any hallucination or suicidal thoughts . Judgment: fair. Insight: fair.. Orientation: , Oriented. Recent and remote memory: No gross impairment. Attention span and concentration: . Language: . Fund of knowledge: . Mood: , Not irritable or angry. Affect: appropriate. DIAGNOSES: 1. . Schizoaffective disorder 2. . 3. . ASSESSMENT: Continued to show improvement MANAGEMENT PLAN: . Continued the current medicine and supportive therapy TIME SPENT: 20 minutes. Vital Signs Vital Signs Date Time Temp Pulse Resp B/P (MAP) Pulse Ox O2 Delivery O2 Flow Rate FiO2 11/25/20 09:30 94 118/72 11/25/20 08:21 98.6 14 95 Room Air Laboratory Data 24H Labs Laboratory Tests 2 11/25/20 06:37: Immature Granulocyte % (Auto) 0.9, Neutrophils (%) (Auto) 54.8, Lymphocytes (%) (Auto) 27.1, Monocytes (%) (Auto) 14.6H, Eosinophils (%) (Auto) 1.9, Basophils (%) (Auto) 0.7, Neutrophils # (Auto) 2.4, Lymphocytes # (Auto) 1.2L, Monocytes # (Auto) 0.6, Eosinophils # (Auto) 0.1, Basophils # (Auto) 0.0, Nucleated Red Blood Cells % (auto) 0.0, Anion Gap 4L, Glomerular Filtration Rate 59.2, Calcium Level 8.2L, Total Bilirubin 0.3, Aspartate Amino Transf (AST/SGOT) 16, Alanine Aminotransferase (ALT/SGPT) 13, Alkaline Phosphatase 58, Total Protein 6.4, Albumin 2.8L, Albumin/Globulin Ratio 0.8L, Valproic Acid (Depakene) Level 97.8 CBC/BMP Laboratory Tests 11/25/20 06:37 Current Medications Current Medications Medications (Trade) Dose Ordered Sig/Marisa Route PRN Reason Start Time Stop Time Status Last Admin Dose Admin Acetaminophen (Tylenol Tab) 650 mg Q6HP PRN PO HEADACHE or MILD DISCOMFORT 11/11/20 19:40 11/24/20 23:48 Al Hydrox/Mg Hydrox/Simethicone (Mylanta) 30 ml Q4HP PRN PO HEARTBURN/INDIGESTION 11/11/20 19:40 Amlodipine Besylate (Norvasc) 5 mg DAILY PO 11/12/20 09:00 11/25/20 09:30 Divalproex Sodium (Depakote Sprinkles) 500 mg BID PO 11/13/20 09:00 11/25/20 09:30 Divalproex Sodium (Depakote Er) 500 mg BID PO 11/13/20 09:00 11/13/20 09:00 DC Docusate Sodium (Colace) 100 mg BID PO 11/12/20 09:00 11/25/20 09:30 Levetiracetam (Keppra Oral Solution) 500 mg BID PO 11/12/20 09:00 11/25/20 09:30 Levothyroxine Sodium (Synthroid) 100 mcg DAILY@06 PO 11/12/20 06:00 11/25/20 05:18 Lorazepam (Ativan) 0.5 mg BID PO 11/17/20 09:00 11/18/20 08:31 DC 11/17/20 19:56 Lorazepam (Ativan) 1 mg BID PO 11/14/20 09:00 11/17/20 07:27 DC 11/16/20 20:33 Magnesium Hydroxide (Milk Of Magnesia) 30 ml DAILYPRN PRN PO CONSTIPATION 11/11/20 19:40 Pantoprazole Sodium (Protonix) 40 mg DAILY PO 11/12/20 09:00 11/25/20 09:30 Polyethylene Glycol (Miralax) 1 pkt DAILY PO 11/12/20 09:00 11/25/20 09:30 Quetiapine Fumarate (SEROquel) 100 mg QHS PO 11/13/20 21:00 11/18/20 08:31 DC 11/17/20 19:56 Quetiapine Fumarate (SEROquel) 100 mg QHS PO 11/23/20 21:00 11/24/20 21:53 Risperidone (RisperDAL LIQUID) 4 mg QHS PO 11/12/20 21:00 11/14/20 08:57 DC 11/12/20 21:48 Risperidone (RisperDAL) 2 mg BID PO 11/14/20 09:00 11/21/20 09:34 DC 11/20/20 21:02 Risperidone (RisperDAL) 2 mg QHS PO 11/21/20 21:00 11/23/20 08:57 DC 11/22/20 20:41 Risperidone (RisperDAL) 3 mg QHS PO 11/23/20 21:00 11/24/20 21:53 Trazodone HCl (Desyrel) 50 mg QHSP PRN PO INSOMNIA 11/11/20 19:40 11/17/20 19:56 Allergies Coded Allergies: Sulfa (Sulfonamide Antibiotics) (Verified Allergy, Unknown, 01/21/19) aspirin (Verified Allergy, Unknown, 01/21/19) MARISOL HURD M.D. Nov 25, 2020 11:07
[2020-11-25 18:03] VITALS: BP 168/77
[2020-11-25] MEDS: risperiDONE 3 MG TAB PO SCH (22:28)
[2020-11-25] MEDS: DIVALPROEX 500MG *ER* TAB PO SCH (22:29)
[2020-11-25] MEDS: QUEtiapine FUMARATE 100 MG TAB PO SCH (22:29)
[2020-11-26] MEDS: LEVOTHYROXINE 100MCG TABLET (0.1MG) PO SCH (06:32)
[2020-11-26 06:52] VITALS: BP 150/68
[2020-11-26] MEDS: MIRALAX *UNIT DOSE* 17GM PACKET PO SCH (09:00)
[2020-11-26] MEDS: levETIRAcetam ORAL SOLUTION 500 MG/5 ML UDC PO SCH ×2 (09:40→22:42)
[2020-11-26] MEDS: DIVALPROEX 250MG *ER* TAB PO SCH (09:41)
[2020-11-26] MEDS: PANTOPRAZOLE 40MG TAB (PROTONIX) PO SCH (09:41)
[2020-11-26] MEDS: amLODIPine 5 MG TAB PO SCH (09:41)
[2020-11-26] MEDS: DOCUSATE SODIUM 100MG CAPSULE PO SCH ×2 (09:41→22:42)
[2020-11-26 16:50] VITALS: BP 136/71
[2020-11-26] MEDS: DIVALPROEX 500MG *ER* TAB PO SCH (22:42)
[2020-11-26] MEDS: QUEtiapine FUMARATE 100 MG TAB PO SCH (22:42)
[2020-11-26] MEDS: risperiDONE 3 MG TAB PO SCH (22:42)
[2020-11-27] MEDS: LEVOTHYROXINE 100MCG TABLET (0.1MG) PO SCH (06:33)
[2020-11-27 06:53] VITALS: BP 158/72
[2020-11-27] MEDS: levETIRAcetam ORAL SOLUTION 500 MG/5 ML UDC PO SCH ×2 (09:32→21:58)
[2020-11-27] MEDS: MIRALAX *UNIT DOSE* 17GM PACKET PO SCH (09:32)
[2020-11-27] MEDS: amLODIPine 5 MG TAB PO SCH (09:32)
[2020-11-27] MEDS: PANTOPRAZOLE 40MG TAB (PROTONIX) PO SCH (09:32)
[2020-11-27] MEDS: DOCUSATE SODIUM 100MG CAPSULE PO SCH ×2 (09:32→21:58)
[2020-11-27] MEDS: DIVALPROEX 250MG *ER* TAB PO SCH (09:34)
[2020-11-27] MEDS: ACETAMINOPHEN TAB 650MG DOSE (2X325MG) PO PRN (12:09)
[2020-11-27] MEDS: traZODone 50 MG TAB PO PRN (21:58)
[2020-11-27] MEDS: QUEtiapine FUMARATE 100 MG TAB PO SCH (21:58)
[2020-11-27] MEDS: risperiDONE 3 MG TAB PO SCH (21:58)
[2020-11-27] MEDS: DIVALPROEX 500MG *ER* TAB PO SCH (21:59)
[2020-11-28] MEDS: ACETAMINOPHEN TAB 650MG DOSE (2X325MG) PO PRN ×2 (01:41→10:05)
[2020-11-28] MEDS: LEVOTHYROXINE 100MCG TABLET (0.1MG) PO SCH (06:15)
--- NOTE | 2020-11-28 09:05 | MHIPNPDOC ---
[facility] Progress Note Progress Note DATE OF SERVICE: 11/28/20 The patient is fully cooperated with medications, but is showing more pressured speech, and irritable mood and didn't sleep last night. She is screaming a few t imes and not as pleasant and very impatient and irritable. Speech is more fragmented and not as organized. I will increase her risperidone to 4 mg at bedtime and continued to observe with one-to-one close observations, and if she doesn't show improvement with increase Depakote at 1000 mg HISTORY: . VITAL SIGNS: See below. NEW TEST RESULTS: . CURRENT MEDICATIONS: See below. MENTAL STATUS EXAMINATION: Patient is a 70-year old female, who is , awake, but more agitated. Speech: Is , not very relevant and pressured. Language skills are poor. Thought processes including: , Not spontaneous. Thought content: , Difficult to evaluate. Abstract reasoning, and computation: , Poor. Description of associations: More pressured and fragmented. Description of abnormal or psychotic thoughts: No gross delusions. Judgment: , Poor. Insight: poor. Orientation: poor. Recent and remote memory: . Attention span and concentration: , Poor. Language: . Fund of knowledge: . Mood: Irritable. Affect: Labile. DIAGNOSES: 1. . Schizoaffective disorder 2. . 3. . ASSESSMENT:Somewhat regressed MANAGEMENT PLAN: . Increase risperidone, continue with close observation. TIME SPENT: 20 minutes. Vital Signs Vital Signs Date Time Temp Pulse Resp B/P (MAP) Pulse Ox O2 Delivery O2 Flow Rate FiO2 11/28/20 07:50 Room Air 11/27/20 09:32 159/92 11/27/20 06:53 98.5 95 22 11/25/20 08:21 95 Current Medications Current Medications Medications (Trade) Dose Ordered Sig/Marisa Route PRN Reason Start Time Stop Time Status Last Admin Dose Admin Acetaminophen (Tylenol Tab) 650 mg Q6HP PRN PO HEADACHE or MILD DISCOMFORT 11/11/20 19:40 11/28/20 01:41 Al Hydrox/Mg Hydrox/Simethicone (Mylanta) 30 ml Q4HP PRN PO HEARTBURN/INDIGESTION 11/11/20 19:40 Amlodipine Besylate (Norvasc) 5 mg DAILY PO 11/12/20 09:00 11/27/20 09:32 Divalproex Sodium (Depakote Sprinkles) 500 mg BID PO 11/13/20 09:00 11/25/20 11:02 DC 11/25/20 09:30 Divalproex Sodium (Depakote Er) 250 mg DAILY PO 11/26/20 09:00 11/27/20 09:34 Divalproex Sodium (Depakote Er) 500 mg BID PO 11/13/20 09:00 11/13/20 09:00 DC Divalproex Sodium (Depakote Er) 500 mg QHS PO 11/25/20 21:00 11/27/20 21:59 Docusate Sodium (Colace) 100 mg BID PO 11/12/20 09:00 11/27/20 21:58 Levetiracetam (Keppra Oral Solution) 500 mg BID PO 11/12/20 09:00 11/27/20 21:58 Levothyroxine Sodium (Synthroid) 100 mcg DAILY@06 PO 11/12/20 06:00 11/28/20 06:15 Lorazepam (Ativan) 0.5 mg BID PO 11/17/20 09:00 11/18/20 08:31 DC 11/17/20 19:56 Lorazepam (Ativan) 1 mg BID PO 11/14/20 09:00 11/17/20 07:27 DC 11/16/20 20:33 Magnesium Hydroxide (Milk Of Magnesia) 30 ml DAILYPRN PRN PO CONSTIPATION 11/11/20 19:40 Pantoprazole Sodium (Protonix) 40 mg DAILY PO 11/12/20 09:00 11/27/20 09:32 Polyethylene Glycol (Miralax) 1 pkt DAILY PO 11/12/20 09:00 11/27/20 09:32 Quetiapine Fumarate (SEROquel) 100 mg QHS PO 11/13/20 21:00 11/18/20 08:31 DC 11/17/20 19:56 Quetiapine Fumarate (SEROquel) 100 mg QHS PO 11/23/20 21:00 11/27/20 21:58 Risperidone (RisperDAL LIQUID) 4 mg QHS PO 11/12/20 21:00 11/14/20 08:57 DC 11/12/20 21:48 Risperidone (RisperDAL) 2 mg BID PO 11/14/20 09:00 11/21/20 09:34 DC 11/20/20 21:02 Risperidone (RisperDAL) 2 mg QHS PO 11/21/20 21:00 11/23/20 08:57 DC 11/22/20 20:41 Risperidone (RisperDAL) 3 mg QHS PO 11/23/20 21:00 11/27/20 21:58 Trazodone HCl (Desyrel) 50 mg QHSP PRN PO INSOMNIA 11/11/20 19:40 11/27/20 21:58 Allergies Coded Allergies: Sulfa (Sulfonamide Antibiotics) (Verified Allergy, Unknown, 01/21/19) aspirin (Verified Allergy, Unknown, 01/21/19) MARISOL HURD M.D. Nov 28, 2020 09:05
[2020-11-28] MEDS: levETIRAcetam ORAL SOLUTION 500 MG/5 ML UDC PO SCH ×2 (09:56→21:41)
[2020-11-28] MEDS: DIVALPROEX 250MG *ER* TAB PO SCH (09:56)
[2020-11-28] MEDS: amLODIPine 5 MG TAB PO SCH (09:57)
[2020-11-28] MEDS: PANTOPRAZOLE 40MG TAB (PROTONIX) PO SCH (09:57)
[2020-11-28] MEDS: MIRALAX *UNIT DOSE* 17GM PACKET PO SCH (09:57)
[2020-11-28] MEDS: DOCUSATE SODIUM 100MG CAPSULE PO SCH ×2 (09:57→21:41)
[2020-11-28] MEDS: risperiDONE 2 MG TAB PO SCH (21:41)
[2020-11-28] MEDS: DIVALPROEX 500MG *ER* TAB PO SCH (21:41)
[2020-11-28] MEDS: QUEtiapine FUMARATE 100 MG TAB PO SCH (21:41)
--- NOTE | 2020-11-29 08:36 | MHIPNPDOC ---
[facility] Progress Note Progress Note DATE OF SERVICE: 11/29/20 The patient has cooperated with the medication change, but so far has not shown much improvement. She was intermittently agitated yesterday and didn't fall asle ep until 2 AM and has been occasionally screaming and was quite labile. This morning she is sleeping in a chair and not able to cooperate with the interview but has not been in any acute physical distress and has not been aggressive or assaultive and didn't have any fall.. She is in need of the further stabilization with the one-to-one close observation. HISTORY: . VITAL SIGNS: See below. NEW TEST RESULTS: . CURRENT MEDICATIONS: See below. MENTAL STATUS EXAMINATION: Patient is a 70-year old female, who is in no acute distress. Speech: Is been frequently screaming. Language skills are poor . Thought processes including: Disorganized . Thought content: Difficult to evaluate . Abstract reasoning, and computation: For. Description of associations: , Disorganized. Description of abnormal or psychotic thoughts: Showing primarily labile mood. Judgment: poor. Insight: poor. Orientation: Is generally oriented to place. Recent and remote memory: No gross impairment. Attention span and concentration: . Language: . Fund of knowledge: . Mood: Irritable and labile . Affect: , Very labile. DIAGNOSES: 1. . Schizoaffective disorder 2. . 3. . ASSESSMENT: Patient is a regressing somewhat in the past 3 days. Clearly in need of stabilization MANAGEMENT PLAN: Continued the medication and close observation. TIME SPENT: 15 minutes. Vital Signs Vital Signs Date Time Temp Pulse Resp B/P (MAP) Pulse Ox O2 Delivery O2 Flow Rate FiO2 11/28/20 09:57 95 159/92 11/28/20 07:50 Room Air 11/27/20 06:53 98.5 22 11/25/20 08:21 95 Current Medications Current Medications Medications (Trade) Dose Ordered Sig/Marisa Route PRN Reason Start Time Stop Time Status Last Admin Dose Admin Acetaminophen (Tylenol Tab) 650 mg Q6HP PRN PO HEADACHE or MILD DISCOMFORT 11/11/20 19:40 11/28/20 10:05 Al Hydrox/Mg Hydrox/Simethicone (Mylanta) 30 ml Q4HP PRN PO HEARTBURN/INDIGESTION 11/11/20 19:40 Amlodipine Besylate (Norvasc) 5 mg DAILY PO 11/12/20 09:00 11/28/20 09:57 Divalproex Sodium (Depakote Sprinkles) 500 mg BID PO 11/13/20 09:00 11/25/20 11:02 DC 11/25/20 09:30 Divalproex Sodium (Depakote Er) 250 mg DAILY PO 11/26/20 09:00 11/28/20 09:56 Divalproex Sodium (Depakote Er) 500 mg BID PO 11/13/20 09:00 11/13/20 09:00 DC Divalproex Sodium (Depakote Er) 500 mg QHS PO 11/25/20 21:00 11/28/20 21:41 Docusate Sodium (Colace) 100 mg BID PO 11/12/20 09:00 11/28/20 21:41 Levetiracetam (Keppra Oral Solution) 500 mg BID PO 11/12/20 09:00 11/28/20 21:41 Levothyroxine Sodium (Synthroid) 100 mcg DAILY@06 PO 11/12/20 06:00 11/28/20 06:15 Lorazepam (Ativan) 0.5 mg BID PO 11/17/20 09:00 11/18/20 08:31 DC 11/17/20 19:56 Lorazepam (Ativan) 1 mg BID PO 11/14/20 09:00 11/17/20 07:27 DC 11/16/20 20:33 Magnesium Hydroxide (Milk Of Magnesia) 30 ml DAILYPRN PRN PO CONSTIPATION 11/11/20 19:40 Pantoprazole Sodium (Protonix) 40 mg DAILY PO 11/12/20 09:00 11/28/20 09:57 Polyethylene Glycol (Miralax) 1 pkt DAILY PO 11/12/20 09:00 11/28/20 09:57 Quetiapine Fumarate (SEROquel) 100 mg QHS PO 11/13/20 21:00 11/18/20 08:31 DC 11/17/20 19:56 Quetiapine Fumarate (SEROquel) 100 mg QHS PO 11/23/20 21:00 11/28/20 21:41 Risperidone (RisperDAL LIQUID) 4 mg QHS PO 11/12/20 21:00 11/14/20 08:57 DC 11/12/20 21:48 Risperidone (RisperDAL) 2 mg BID PO 11/14/20 09:00 11/21/20 09:34 DC 11/20/20 21:02 Risperidone (RisperDAL) 2 mg QHS PO 11/21/20 21:00 11/23/20 08:57 DC 11/22/20 20:41 Risperidone (RisperDAL) 3 mg QHS PO 11/23/20 21:00 11/28/20 09:00 DC 11/27/20 21:58 Risperidone (RisperDAL) 4 mg QHS PO 11/28/20 21:00 11/28/20 21:41 Trazodone HCl (Desyrel) 50 mg QHSP PRN PO INSOMNIA 11/11/20 19:40 11/27/20 21:58 Allergies Coded Allergies: Sulfa (Sulfonamide Antibiotics) (Verified Allergy, Unknown, 01/21/19) aspirin (Verified Allergy, Unknown, 01/21/19) MARISOL HURD M.D. Nov 29, 2020 08:36
[2020-11-29] MEDS: DOCUSATE SODIUM 100MG CAPSULE PO SCH ×2 (08:53→21:19)
[2020-11-29] MEDS: DIVALPROEX 250MG *ER* TAB PO SCH (08:53)
[2020-11-29] MEDS: MIRALAX *UNIT DOSE* 17GM PACKET PO SCH (08:54)
[2020-11-29] MEDS: amLODIPine 5 MG TAB PO SCH (08:54)
[2020-11-29] MEDS: levETIRAcetam ORAL SOLUTION 500 MG/5 ML UDC PO SCH ×2 (08:54→21:19)
[2020-11-29] MEDS: LEVOTHYROXINE 100MCG TABLET (0.1MG) PO SCH (08:54)
[2020-11-29] MEDS: PANTOPRAZOLE 40MG TAB (PROTONIX) PO SCH (08:54)
[2020-11-29] MEDS: ACETAMINOPHEN TAB 650MG DOSE (2X325MG) PO PRN ×2 (14:40→22:59)
[2020-11-29 18:27] VITALS: BP 122/58
[2020-11-29] MEDS: DIVALPROEX 500MG *ER* TAB PO SCH (21:19)
[2020-11-29] MEDS: QUEtiapine FUMARATE 100 MG TAB PO SCH (21:19)
[2020-11-29] MEDS: risperiDONE 2 MG TAB PO SCH (21:19)
[2020-11-30] MEDS: LEVOTHYROXINE 100MCG TABLET (0.1MG) PO SCH ×2 (05:40→05:56)
[2020-11-30] MEDS: levETIRAcetam ORAL SOLUTION 500 MG/5 ML UDC PO SCH ×3 (09:47→22:00)
[2020-11-30] MEDS: MIRALAX *UNIT DOSE* 17GM PACKET PO SCH (09:48)
[2020-11-30] MEDS: amLODIPine 5 MG TAB PO SCH (09:48)
[2020-11-30] MEDS: DIVALPROEX 250MG *ER* TAB PO SCH ×3 (09:48→22:13)
[2020-11-30] MEDS: PANTOPRAZOLE 40MG TAB (PROTONIX) PO SCH (09:48)
[2020-11-30] MEDS: DOCUSATE SODIUM 100MG CAPSULE PO SCH ×3 (09:48→22:00)
[2020-11-30] MEDS: DIVALPROEX 500MG *ER* TAB PO SCH (21:54)
[2020-11-30] MEDS: risperiDONE 2 MG TAB PO SCH ×2 (21:54→22:00)
[2020-11-30] MEDS: QUEtiapine FUMARATE 100 MG TAB PO SCH ×2 (21:54→22:00)
[2020-12-01] MEDS: LEVOTHYROXINE 100MCG TABLET (0.1MG) PO SCH (05:55)
[2020-12-01] MEDS: MIRALAX *UNIT DOSE* 17GM PACKET PO SCH (09:00)
[2020-12-01] MEDS: PANTOPRAZOLE 40MG TAB (PROTONIX) PO SCH (09:00)
[2020-12-01] MEDS: DOCUSATE SODIUM 100MG CAPSULE PO SCH ×2 (09:00→21:40)
[2020-12-01 09:05] LABS: ALBUMIN 3.3 GM/DL (3.2-5.2); BILIRUBIN,TOTAL 0.3 MG/DL (0.2-1.0); CALCIUM LEVEL 8.9 MG/DL (8.8-10.2); CREATININE FOR GFR 1.09 MG/DL (0.55-1.30); POTASSIUM SERUM 3.9 MEQ/L (3.5-5.1); TOTAL PROTEIN 7.7 GM/DL (6.4-8.2); VALPROIC ACID (DEPAKOTE) 59.9 UG/ML (50.0-100.0)
--- NOTE | 2020-12-01 09:20 | MHIPNPDOC ---
[facility] Progress Note Progress Note DATE OF SERVICE: 12/01/20 The patient was more agitated yesterday and did not take her bedtime medications and has not slept at all. This morning she is awake walking around rambling on and off and screaming incomprehensible words at times and appears quite restless and agitated. She is very irritable and not answering questions but is in no acute distress. She has been showing marked changes in the past 3 days after showing significant improvement and I really do not see any precipitating issues. UTI is certainly a possibility and will get urinalysis and I will increase her Seroquel at bedtime and give nighttime dose of Ativan to get some much needed to sleep for her. HISTORY:. VITAL SIGNS: See below. NEW TEST RESULTS:. CURRENT MEDICATIONS: See below. MENTAL STATUS EXAMINATION: Patient is a 70-year old female, who is quite restless and agitated but in no acute physical distress. Speech: Is pressured and fragmented Language skills are poor. Thought processes including: Disorganized. Thought content: Difficult to evaluate. Abstract reasoning, and computation: Poor. Description of associations: Disorganized. Description of abnormal or psychotic thoughts: Appears quite agitated. Judgment: Poor. Insight: poor]. Orientation: Appears oriented. Recent and remote memory: Unable to evaluate. Attention span and concentration:. Language:. Fund of knowledge:. Mood: Irritable. Affect: Labile and agitated. DIAGNOSES: 1.. Schizoaffective disorder 2.. 3.. ASSESSMENT: Showing worsening of her mental status in the past 3 days MANAGEMENT PLAN: Will evaluate with urinalysis and lab work increase Seroquel and add Ativan continue with the supportive therapy. TIME SPENT: 20 minutes. Vital Signs Vital Signs Date Time Temp Pulse Resp B/P (MAP) Pulse Ox O2 Delivery O2 Flow Rate FiO2 11/30/20 09:48 115 159/92 11/29/20 18:27 98.9 20 93 11/29/20 10:49 Room Air Laboratory Data 24H Labs Laboratory Tests 2 12/01/20 08:07: Anion Gap 9, Glomerular Filtration Rate 53.0, Calcium Level 8.9, Total Bilirubin 0.3, Aspartate Amino Transf (AST/SGOT) 17, Alanine Aminotransferase (ALT/SGPT) 18, Alkaline Phosphatase 72, Total Protein 7.7, Albumin 3.3, Albumin/Globulin Ratio 0.8L, Valproic Acid (Depakene) Level 59.9 CBC/BMP Laboratory Tests 12/01/20 08:07 Current Medications Current Medications Medications (Trade) Dose Ordered Sig/Marisa Route PRN Reason Start Time Stop Time Status Last Admin Dose Admin Acetaminophen (Tylenol Tab) 650 mg Q6HP PRN PO HEADACHE or MILD DISCOMFORT 11/11/20 19:40 11/29/20 22:59 Al Hydrox/Mg Hydrox/Simethicone (Mylanta) 30 ml Q4HP PRN PO HEARTBURN/INDIGESTION 11/11/20 19:40 Amlodipine Besylate (Norvasc) 5 mg DAILY PO 11/12/20 09:00 11/30/20 09:48 Divalproex Sodium (Depakote Sprinkles) 500 mg BID PO 11/13/20 09:00 11/25/20 11:02 DC 11/25/20 09:30 Divalproex Sodium (Depakote Er) 250 mg DAILY PO 11/26/20 09:00 11/30/20 09:48 Divalproex Sodium (Depakote Er) 500 mg BID PO 11/13/20 09:00 11/13/20 09:00 DC Divalproex Sodium (Depakote Er) 500 mg QHS PO 11/25/20 21:00 11/30/20 22:07 DC 11/29/20 21:19 Divalproex Sodium (Depakote Er) 500 mg QHS PO 11/30/20 22:10 Docusate Sodium (Colace) 100 mg BID PO 11/12/20 09:00 11/30/20 09:48 Levetiracetam (Keppra Oral Solution) 500 mg BID PO 11/12/20 09:00 11/30/20 09:47 Levothyroxine Sodium (Synthroid) 100 mcg DAILY@06 PO 11/12/20 06:00 11/29/20 08:54 Lorazepam (Ativan) 0.5 mg BID PO 11/17/20 09:00 11/18/20 08:31 DC 11/17/20 19:56 Lorazepam (Ativan) 1 mg BID PO 11/14/20 09:00 11/17/20 07:27 DC 11/16/20 20:33 Magnesium Hydroxide (Milk Of Magnesia) 30 ml DAILYPRN PRN PO CONSTIPATION 11/11/20 19:40 Pantoprazole Sodium (Protonix) 40 mg DAILY PO 11/12/20 09:00 11/30/20 09:48 Polyethylene Glycol (Miralax) 1 pkt DAILY PO 11/12/20 09:00 11/30/20 09:48 Quetiapine Fumarate (SEROquel) 100 mg QHS PO 11/13/20 21:00 11/18/20 08:31 DC 11/17/20 19:56 Quetiapine Fumarate (SEROquel) 100 mg QHS PO 11/23/20 21:00 11/29/20 21:19 Risperidone (RisperDAL LIQUID) 4 mg QHS PO 11/12/20 21:00 11/14/20 08:57 DC 11/12/20 21:48 Risperidone (RisperDAL) 2 mg BID PO 11/14/20 09:00 11/21/20 09:34 DC 11/20/20 21:02 Risperidone (RisperDAL) 2 mg QHS PO 11/21/20 21:00 11/23/20 08:57 DC 11/22/20 20:41 Risperidone (RisperDAL) 3 mg QHS PO 11/23/20 21:00 11/28/20 09:00 DC 11/27/20 21:58 Risperidone (RisperDAL) 4 mg QHS PO 11/28/20 21:00 11/29/20 21:19 Trazodone HCl (Desyrel) 50 mg QHSP PRN PO INSOMNIA 11/11/20 19:40 11/27/20 21:58 Allergies Coded Allergies: Sulfa (Sulfonamide Antibiotics) (Verified Allergy, Unknown, 01/21/19) aspirin (Verified Allergy, Unknown, 01/21/19) MARISOL HURD M.D. Dec 01, 2020 09:20
[2020-12-01 09:44] VITALS: BP 159/92
[2020-12-01] MEDS: DIVALPROEX 250MG *ER* TAB PO SCH ×2 (09:55→21:00)
[2020-12-01] MEDS: levETIRAcetam ORAL SOLUTION 500 MG/5 ML UDC PO SCH ×2 (10:58→21:42)
[2020-12-01] MEDS: amLODIPine 5 MG TAB PO SCH (10:59)
[2020-12-01 17:05] VITALS: BP 143/67
[2020-12-01] MEDS: LORazepam 1 MG TAB PO SCH (20:19)
[2020-12-01] MEDS: traZODone 50 MG TAB PO PRN (21:40)
[2020-12-01] MEDS: risperiDONE 2 MG TAB PO SCH (21:41)
[2020-12-01] MEDS: QUEtiapine FUMARATE 200 MG TAB PO SCH (21:41)
[2020-12-01] MEDS: ACETAMINOPHEN TAB 650MG DOSE (2X325MG) PO PRN (22:32)
[2020-12-02] MEDS: LEVOTHYROXINE 100MCG TABLET (0.1MG) PO SCH (06:00)
--- NOTE | 2020-12-02 08:43 | MHIPNPDOC ---
[facility] Progress Note Progress Note DATE OF SERVICE: 12/02/20 The repeat blood work shows CMP is entirely within normal limit and her Depakote level is 59 from previous 98. With the increase of the Seroquel and Ativan she slept very well last night and is still sleeping. It appears that reduced the Depakote may have contributed to this episode so I will increase her Depakote ER 500 mg in the morning and bedtime and continue with the supportive therapy. HISTORY:. VITAL SIGNS: See below. NEW TEST RESULTS:. CURRENT MEDICATIONS: See below. MENTAL STATUS EXAMINATION: Patient is a 70-year old female, who is finally sleeping through the night. Speech: Is not evaluated. Language skills are been poor. Thought processes including: Unable to evaluate. Thought content: Unable to evaluate. Abstract reasoning, and computation: Been poor. Description of associations: Been disorganized. Description of abnormal or psychotic thoughts: Been agitated and disorganized. Judgment: Poor. Insight: Poor. Orientation:. Recent and remote memory:. Attention span and concentration:. Language:. Fund of knowledge:. Mood: Been irritable. Affect: Been labile. DIAGNOSES: 1.. Schizoaffective disorder 2.. 3.. ASSESSMENT: The patient is finally sleeping and is not as agitated. Her blood chemistries all within normal limit Depakote level is 59 MANAGEMENT PLAN: Increase Depakote continue with the increased the Seroquel and continue with supportive therapy. TIME SPENT: 15 minutes. Vital Signs Vital Signs Date Time Temp Pulse Resp B/P (MAP) Pulse Ox O2 Delivery O2 Flow Rate FiO2 12/01/20 17:05 98.8 98 20 143/67 (92) 11/29/20 18:27 93 11/29/20 10:49 Room Air Laboratory Data 24H Labs Laboratory Tests 2 12/01/20 12:00: Urine Color YELLOW, Urine Appearance CLEAR, Urine pH 6.0, Urine Specific [place] 1.004, Urine Protein 1+H, Urine Glucose (UA) NEGATIVE, Urine Ketones NEGATIVE, Urine Blood NEGATIVE, Urine Nitrite NEGATIVE, Urine Bilirubin NEGATIVE, Urine Urobilinogen 0.2, Urine Leukocyte Esterase 2+H, Urine WBC (Auto) 22H, Urine RBC (Auto) 1, Urine Hyaline Casts (Auto) 0, Urine Bacteria (Auto) 1+H, Urine Squamous Epithelial Cells 0, Urine Sperm (Auto) Current Medications Current Medications Medications (Trade) Dose Ordered Sig/Marisa Route PRN Reason Start Time Stop Time Status Last Admin Dose Admin Acetaminophen (Tylenol Tab) 650 mg Q6HP PRN PO HEADACHE or MILD DISCOMFORT 11/11/20 19:40 12/01/20 22:32 Al Hydrox/Mg Hydrox/Simethicone (Mylanta) 30 ml Q4HP PRN PO HEARTBURN/INDIGESTION 11/11/20 19:40 Amlodipine Besylate (Norvasc) 5 mg DAILY PO 11/12/20 09:00 12/01/20 10:59 Divalproex Sodium (Depakote Sprinkles) 500 mg BID PO 11/13/20 09:00 11/25/20 11:02 DC 11/25/20 09:30 Divalproex Sodium (Depakote Er) 250 mg DAILY PO 11/26/20 09:00 12/02/20 07:14 DC 12/01/20 09:55 Divalproex Sodium (Depakote Er) 500 mg BID PO 11/13/20 09:00 11/13/20 09:00 DC Divalproex Sodium (Depakote Er) 500 mg DAILY PO 12/02/20 09:00 Divalproex Sodium (Depakote Er) 500 mg QHS PO 11/25/20 21:00 11/30/20 22:07 DC 11/29/20 21:19 Divalproex Sodium (Depakote Er) 500 mg QHS PO 11/30/20 22:10 Docusate Sodium (Colace) 100 mg BID PO 11/12/20 09:00 12/01/20 21:40 Levetiracetam (Keppra Oral Solution) 500 mg BID PO 11/12/20 09:00 12/01/20 21:42 Levothyroxine Sodium (Synthroid) 100 mcg DAILY@06 PO 11/12/20 06:00 11/29/20 08:54 Lorazepam (Ativan) 0.5 mg BID PO 11/17/20 09:00 11/18/20 08:31 DC 11/17/20 19:56 Lorazepam (Ativan) 1 mg BID PO 11/14/20 09:00 11/17/20 07:27 DC 11/16/20 20:33 Lorazepam (Ativan) 1 mg QHS PO 12/01/20 21:00 12/01/20 20:19 Magnesium Hydroxide (Milk Of Magnesia) 30 ml DAILYPRN PRN PO CONSTIPATION 11/11/20 19:40 Pantoprazole Sodium (Protonix) 40 mg DAILY PO 11/12/20 09:00 11/30/20 09:48 Polyethylene Glycol (Miralax) 1 pkt DAILY PO 11/12/20 09:00 11/30/20 09:48 Quetiapine Fumarate (SEROquel) 100 mg QHS PO 11/13/20 21:00 11/18/20 08:31 DC 11/17/20 19:56 Quetiapine Fumarate (SEROquel) 100 mg QHS PO 11/23/20 21:00 12/01/20 09:14 DC 11/29/20 21:19 Quetiapine Fumarate (SEROquel) 200 mg QHS PO 12/01/20 21:00 12/01/20 21:41 Risperidone (RisperDAL LIQUID) 4 mg QHS PO 11/12/20 21:00 11/14/20 08:57 DC 11/12/20 21:48 Risperidone (RisperDAL) 2 mg BID PO 11/14/20 09:00 11/21/20 09:34 DC 11/20/20 21:02 Risperidone (RisperDAL) 2 mg QHS PO 11/21/20 21:00 11/23/20 08:57 DC 11/22/20 20:41 Risperidone (RisperDAL) 3 mg QHS PO 11/23/20 21:00 11/28/20 09:00 DC 11/27/20 21:58 Risperidone (RisperDAL) 4 mg QHS PO 11/28/20 21:00 12/01/20 21:41 Trazodone HCl (Desyrel) 50 mg QHSP PRN PO INSOMNIA 11/11/20 19:40 12/01/20 21:40 Allergies Coded Allergies: Sulfa (Sulfonamide Antibiotics) (Verified Allergy, Unknown, 01/21/19) aspirin (Verified Allergy, Unknown, 01/21/19) MARISOL HURD M.D. Dec 02, 2020 08:43
[2020-12-02] MEDS: PANTOPRAZOLE 40MG TAB (PROTONIX) PO SCH (09:00)
[2020-12-02] MEDS: amLODIPine 5 MG TAB PO SCH (09:00)
[2020-12-02] MEDS: DIVALPROEX 500MG *ER* TAB PO SCH (09:00)
[2020-12-02] MEDS: DOCUSATE SODIUM 100MG CAPSULE PO SCH ×2 (09:00→23:37)
[2020-12-02] MEDS ORDERED: SODIUM CHLORIDE 0.9% NASAL GEL 15GM (AYR) PRN (10:50)
[2020-12-02] MEDS: levETIRAcetam ORAL SOLUTION 500 MG/5 ML UDC PO SCH ×2 (11:17→23:38)
[2020-12-02] MEDS: MIRALAX *UNIT DOSE* 17GM PACKET PO SCH (11:18)
[2020-12-02 18:35] VITALS: BP 121/73
[2020-12-02] MEDS ORDERED: OLANZapine INTRAMUSCULAR 10MG VIAL IM ONE (23:25)
[2020-12-02] MEDS ORDERED: LORazepam 2 MG/ML VIAL IM ONE (23:25)
[2020-12-02] MEDS: DIVALPROEX 250MG *ER* TAB PO SCH (23:37)
[2020-12-02] MEDS: LORazepam 1 MG TAB PO SCH (23:37)
[2020-12-02] MEDS: QUEtiapine FUMARATE 200 MG TAB PO SCH (23:38)
[2020-12-02] MEDS: risperiDONE 2 MG TAB PO SCH (23:38)
[2020-12-03] MEDS: LEVOTHYROXINE 100MCG TABLET (0.1MG) PO SCH (05:12)
[2020-12-03] MEDS: DIVALPROEX 500MG *ER* TAB PO SCH (09:00)
[2020-12-03] MEDS ORDERED: diphenhydrAMINE 50MG/ML VIAL (J1200) IM ONE (09:00)
[2020-12-03] MEDS ORDERED: HALOPERIDOL 5MG/ML VIAL (J1630 PER 1) IM ONE (09:00)
[2020-12-03] MEDS: levETIRAcetam ORAL SOLUTION 500 MG/5 ML UDC PO SCH ×2 (09:46→21:00)
[2020-12-03] MEDS: DOCUSATE SODIUM 100MG CAPSULE PO SCH ×2 (09:46→21:00)
[2020-12-03] MEDS: PANTOPRAZOLE 40MG TAB (PROTONIX) PO SCH (09:47)
[2020-12-03] MEDS: amLODIPine 5 MG TAB PO SCH (09:47)
[2020-12-03] MEDS: MIRALAX *UNIT DOSE* 17GM PACKET PO SCH (09:47)
[2020-12-03] MEDS: haloperidoL 5 MG TAB PO PRN (14:57)
[2020-12-03] MEDS: diphenhydrAMINE 50MG CAP PO PRN (14:57)
[2020-12-03 16:15] VITALS: BP 150/75
[2020-12-03] MEDS: DIVALPROEX 250MG *ER* TAB PO SCH (21:00)
[2020-12-03] MEDS: risperiDONE 2 MG TAB PO SCH (21:00)
[2020-12-03] MEDS: QUEtiapine FUMARATE 200 MG TAB PO SCH (21:00)
[2020-12-03] MEDS: LORazepam 1 MG TAB PO SCH (21:00)
[2020-12-04] MEDS: diphenhydrAMINE 50MG CAP PO PRN ×3 (03:15→09:30)
[2020-12-04] MEDS: haloperidoL 5 MG TAB PO PRN ×4 (03:15→14:42)
[2020-12-04] MEDS: LEVOTHYROXINE 100MCG TABLET (0.1MG) PO SCH (04:03)
[2020-12-04] MEDS: ACETAMINOPHEN TAB 650MG DOSE (2X325MG) PO PRN ×3 (05:41→22:01)
[2020-12-04] MEDS: MIRALAX *UNIT DOSE* 17GM PACKET PO SCH (08:53)
[2020-12-04] MEDS: levETIRAcetam ORAL SOLUTION 500 MG/5 ML UDC PO SCH ×2 (08:54→22:00)
[2020-12-04] MEDS: amLODIPine 5 MG TAB PO SCH (08:54)
[2020-12-04] MEDS: PANTOPRAZOLE 40MG TAB (PROTONIX) PO SCH (08:54)
[2020-12-04] MEDS: DIVALPROEX 250MG *ER* TAB PO SCH ×2 (09:17→22:00)
[2020-12-04] MEDS: DOCUSATE SODIUM 100MG CAPSULE PO SCH ×2 (09:29→21:00)
[2020-12-04 18:35] VITALS: BP 14/74
[2020-12-04] MEDS: CEPHALEXIN 500 MG CAP PO SCH ×2 (19:17→19:22)
[2020-12-04] MEDS: LORazepam 1 MG TAB PO SCH (21:59)
[2020-12-04] MEDS: QUEtiapine FUMARATE 200 MG TAB PO SCH (22:01)
[2020-12-04] MEDS: risperiDONE 2 MG TAB PO SCH (22:01)
[2020-12-05] MEDS: haloperidoL 5 MG TAB PO PRN ×2 (01:27→12:54)
[2020-12-05] MEDS: CEPHALEXIN 500 MG CAP PO SCH ×5 (01:28→18:00)
[2020-12-05] MEDS: diphenhydrAMINE 50MG CAP PO PRN (01:28)
[2020-12-05] MEDS: LEVOTHYROXINE 100MCG TABLET (0.1MG) PO SCH (05:11)
[2020-12-05] MEDS: ACETAMINOPHEN TAB 650MG DOSE (2X325MG) PO PRN (05:12)
[2020-12-05] MEDS: MIRALAX *UNIT DOSE* 17GM PACKET PO SCH (12:42)
[2020-12-05] MEDS: DOCUSATE SODIUM 100MG CAPSULE PO SCH ×3 (12:43→21:47)
[2020-12-05] MEDS: levETIRAcetam ORAL SOLUTION 500 MG/5 ML UDC PO SCH ×3 (12:43→21:46)
[2020-12-05] MEDS: PANTOPRAZOLE 40MG TAB (PROTONIX) PO SCH (12:43)
[2020-12-05] MEDS: DIVALPROEX 250MG *ER* TAB PO SCH ×3 (12:43→21:46)
[2020-12-05] MEDS: amLODIPine 5 MG TAB PO SCH (12:43)
[2020-12-05 17:09] VITALS: BP 127/65
[2020-12-05] MEDS: risperiDONE 2 MG TAB PO SCH ×2 (21:00→21:47)
[2020-12-05] MEDS: LORazepam 1 MG TAB PO SCH ×2 (21:00→21:47)
[2020-12-05] MEDS: QUEtiapine FUMARATE 200 MG TAB PO SCH ×2 (21:00→21:46)
[2020-12-05] MEDS: traZODone 50 MG TAB PO PRN (21:47)
[2020-12-06] MEDS: LEVOTHYROXINE 100MCG TABLET (0.1MG) PO SCH (05:26)
[2020-12-06] MEDS: CEPHALEXIN 500 MG CAP PO SCH ×4 (05:26→18:00)
[2020-12-06] MEDS: VALPROIC ACID 250MG/5ML SOL ORAL SYRINGE *DRAW UP EXACT DOSE PO SCH ×2 (08:00→15:48)
[2020-12-06] MEDS: LORazepam 1 MG TAB PO SCH ×3 (09:00→20:49)
[2020-12-06] MEDS: PANTOPRAZOLE 40MG TAB (PROTONIX) PO SCH (09:00)
[2020-12-06] MEDS: amLODIPine 5 MG TAB PO SCH (09:00)
[2020-12-06] MEDS: levETIRAcetam ORAL SOLUTION 500 MG/5 ML UDC PO SCH ×3 (09:00→21:00)
[2020-12-06] MEDS ORDERED: VALPROIC ACID 250MG CAP PO SCH (09:00)
[2020-12-06] MEDS: MIRALAX *UNIT DOSE* 17GM PACKET PO SCH (09:00)
[2020-12-06] MEDS: DOCUSATE SODIUM 100MG CAPSULE PO SCH ×3 (09:00→21:00)
--- NOTE | 2020-12-06 10:55 | MHIPNPDOC ---
[facility] Progress Note Progress Note DATE OF SERVICE: 12/06/20 The patient did not sleep much last night and is still awake this morning but is very angry irritable and labile. She screams at times claiming that she is not happy with everything in this place and knows that it is hospital but has no idea how long she has been here. She is not able to carry on any rational conversation and her mood is very angry hostile and labile. She has missed the most of oral medications yesterday because of behavior and labile mood. I will change her medication schedule to morning and 5 PM and also change the Depakote to liquid form and try to stabilize. HISTORY:. VITAL SIGNS: See below. NEW TEST RESULTS:. CURRENT MEDICATIONS: See below. MENTAL STATUS EXAMINATION: Patient is a 70-year old female, who is hostile and irritable. Speech: Is fragmented. Language skills are poor. Thought processes including: Disorganized. Thought content: Appears markedly paranoid. Abstract reasoning, and computation: Poor. Description of associations: Disorganized fragmented. Description of abnormal or psychotic thoughts: Remains labile agitated and irritable. Judgment: Poor. Insight: Poor. Orientation: Oriented to the place but not time. Recent and remote memory: Difficult to evaluate. Attention span and concentration: Poor. Language:. Fund of knowledge:. Mood: Angry irritable. Affect: Labile agitated. DIAGNOSES: Schizoaffective disorder 1.. No improvement 2.. Try to stabilize with the risperidone and Depakote will try Ativan 1 mg 3 times a day to see if we can control her agitation or if she has any adverse reaction to benzodiazepines 3.. ASSESSMENT: MANAGEMENT PLAN: Stabilized with medication. TIME SPENT: 20 minutes. Vital Signs Vital Signs Date Time Temp Pulse Resp B/P (MAP) Pulse Ox O2 Delivery O2 Flow Rate FiO2 12/05/20 17:09 98.3 89 127/65 (85) 97 12/05/20 12:00 Room Air 12/04/20 18:35 16 Current Medications Current Medications Medications (Trade) Dose Ordered Sig/Marisa Route PRN Reason Start Time Stop Time Status Last Admin Dose Admin Acetaminophen (Tylenol Tab) 650 mg Q6HP PRN PO HEADACHE or MILD DISCOMFORT 11/11/20 19:40 12/05/20 05:12 Al Hydrox/Mg Hydrox/Simethicone (Mylanta) 30 ml Q4HP PRN PO HEARTBURN/INDIGESTION 6/18/21 19:40 Amlodipine Besylate (Norvasc) 5 mg DAILY PO 11/12/20 09:00 12/05/20 12:43 Cephalexin Monohydrate (Keflex) 500 mg Q6H PO 12/04/20 18:00 12/11/20 17:59 12/05/20 12:51 Diphenhydramine HCl (Benadryl) 50 mg Q6HP PRN PO AGITATION 12/03/20 12:25 12/05/20 01:28 Divalproex Sodium (Depakote Sprinkles) 500 mg BID PO 11/13/20 09:00 11/25/20 11:02 DC 11/25/20 09:30 Divalproex Sodium (Depakote Er) 250 mg DAILY PO 11/26/20 09:00 12/02/20 07:14 DC 12/01/20 09:55 Divalproex Sodium (Depakote Er) 500 mg BID PO 11/13/20 09:00 11/13/20 09:00 DC Divalproex Sodium (Depakote Er) 500 mg DAILY PO 12/04/20 09:00 12/06/20 10:27 DC 12/05/20 12:43 Divalproex Sodium (Depakote Er) 500 mg DAILY PO 12/02/20 09:00 12/04/20 08:53 DC Divalproex Sodium (Depakote Er) 500 mg QHS PO 11/25/20 21:00 11/30/20 22:07 DC 11/29/20 21:19 Divalproex Sodium (Depakote Er) 500 mg QHS PO 11/30/20 22:10 12/06/20 10:27 DC 12/04/20 22:00 Docusate Sodium (Colace) 100 mg BID PO 11/12/20 09:00 12/05/20 12:43 Haloperidol (Haldol) 5 mg Q6HP PRN PO AGITATION 12/03/20 12:25 12/05/20 12:54 Levetiracetam (Keppra Oral Solution) 500 mg BID PO 11/12/20 09:00 12/05/20 12:43 Levothyroxine Sodium (Synthroid) 100 mcg DAILY@06 PO 11/12/20 06:00 12/05/20 05:11 Lorazepam (Ativan) 0.5 mg BID PO 11/17/20 09:00 11/18/20 08:31 DC 11/17/20 19:56 Lorazepam (Ativan) 1 mg BID PO 11/14/20 09:00 11/17/20 07:27 DC 11/16/20 20:33 Lorazepam (Ativan) 1 mg QHS PO 12/01/20 21:00 12/06/20 10:27 DC 12/04/20 21:59 Lorazepam (Ativan) 1 mg TID PO 12/06/20 09:00 Magnesium Hydroxide (Milk Of Magnesia) 30 ml DAILYPRN PRN PO CONSTIPATION 11/11/20 19:40 Pantoprazole Sodium (Protonix) 40 mg DAILY PO 11/12/20 09:00 12/05/20 12:43 Polyethylene Glycol (Miralax) 1 pkt DAILY PO 11/12/20 09:00 12/05/20 12:42 Quetiapine Fumarate (SEROquel) 100 mg QHS PO 11/13/20 21:00 11/18/20 08:31 DC 11/17/20 19:56 Quetiapine Fumarate (SEROquel) 100 mg QHS PO 11/23/20 21:00 12/01/20 09:14 DC 11/29/20 21:19 Quetiapine Fumarate (SEROquel) 200 mg QHS PO 12/01/20 21:00 12/04/20 22:01 Risperidone (RisperDAL LIQUID) 4 mg QHS PO 11/12/20 21:00 11/14/20 08:57 DC 11/12/20 21:48 Risperidone (RisperDAL) 2 mg BID PO 11/14/20 09:00 11/21/20 09:34 DC 11/20/20 21:02 Risperidone (RisperDAL) 2 mg QHS PO 11/21/20 21:00 11/23/20 08:57 DC 11/22/20 20:41 Risperidone (RisperDAL) 3 mg QHS PO 11/23/20 21:00 11/28/20 09:00 DC 11/27/20 21:58 Risperidone (RisperDAL) 4 mg QHS PO 11/28/20 21:00 12/06/20 10:27 DC 12/04/20 22:01 Risperidone (RisperDAL) 4 mg QPM PO 12/06/20 17:00 Sodium Chloride ([place] Saline Nasal Gel) APPLY SMALL RADHIKA... Q4HP PRN NA NASAL DRYNESS 12/02/20 10:50 Trazodone HCl (Desyrel) 50 mg QHSP PRN PO INSOMNIA 11/11/20 19:40 12/01/20 21:40 Valproic Acid (Depakene Solution) 500 mg 0800,1600 PO 12/06/20 08:00 Valproic Acid (Depakene) 500 mg BID PO 12/06/20 09:00 Cancel Allergies Coded Allergies: Sulfa (Sulfonamide Antibiotics) (Verified Allergy, Unknown, 01/21/19) aspirin (Verified Allergy, Unknown, 01/21/19) MARISOL HURD M.D. Dec 06, 2020 10:55
[2020-12-06] MEDS: risperiDONE 2 MG TAB PO SCH ×3 (16:07→20:49)
[2020-12-06] MEDS: ACETAMINOPHEN TAB 650MG DOSE (2X325MG) PO PRN (17:06)
[2020-12-06] MEDS: QUEtiapine FUMARATE 200 MG TAB PO SCH (20:48)
[2020-12-07] MEDS: CEPHALEXIN 500 MG CAP PO SCH ×4 (06:00→18:00)
[2020-12-07] MEDS: LEVOTHYROXINE 100MCG TABLET (0.1MG) PO SCH (06:00)
[2020-12-07] MEDS: PANTOPRAZOLE 40MG TAB (PROTONIX) PO SCH (09:00)
[2020-12-07] MEDS: amLODIPine 5 MG TAB PO SCH (09:00)
[2020-12-07] MEDS: DOCUSATE SODIUM 100MG CAPSULE PO SCH ×2 (09:00→23:04)
[2020-12-07] MEDS: MIRALAX *UNIT DOSE* 17GM PACKET PO SCH (09:00)
[2020-12-07] MEDS ORDERED: risperiDONE LONG-ACTING 37.5 MG/2 ML INJ (J2794 PER 0.5MG) IM SCH (09:00)
[2020-12-07] MEDS: LORazepam 1 MG TAB PO SCH ×3 (09:00→23:04)
--- NOTE | 2020-12-07 10:11 | MHIPNPDOC ---
[facility] Progress Note Progress Note DATE OF SERVICE: 12/07/20 The patient has finally fallen asleep around midnight and is still sleepy. She was up and agitated throughout the day yesterday and did take Depakote and syrup but did not take her risperidone. She remained very labile and agitated and disorganized but did ask for injection which was suggested to her yesterday because of her poor compliance with oral risperidone. Will order long-acting risperidone 37.5 mg to stabilize her HISTORY:. VITAL SIGNS: See below. NEW TEST RESULTS:. CURRENT MEDICATIONS: See below. MENTAL STATUS EXAMINATION: Patient is a 70-year old female, who is asleep. Speech: Is been very pressured and fragmented. Language skills are poor. Thought processes including: Not been able to have a coherent conversation. Thought content: Difficult to evaluate. Abstract reasoning, and computation:. Description of associations:. Description of abnormal or psychotic thoughts: Been labile agitated and appears to be very paranoid. Judgment: Poor. Insight: Very poor. Orientation:. Difficult to evaluate Recent and remote memory: Unable to evaluate. Attention span and concentration:. Language:. Fund of knowledge:. Mood: Been angry irritable. Affect: Labile and agitated. DIAGNOSES: 1.. Schizoaffective disorder 2.. 3.. ASSESSMENT: Frequently agitated and showing no improvement MANAGEMENT PLAN: Start risperidone long-acting injection decrease oral risperidone. TIME SPENT: For minutes. Vital Signs Vital Signs Date Time Temp Pulse Resp B/P (MAP) Pulse Ox O2 Delivery O2 Flow Rate FiO2 12/05/20 17:09 98.3 89 127/65 (85) 97 12/05/20 12:00 Room Air 12/04/20 18:35 16 Current Medications Current Medications Medications (Trade) Dose Ordered Sig/Marisa Route PRN Reason Start Time Stop Time Status Last Admin Dose Admin Acetaminophen (Tylenol Tab) 650 mg Q6HP PRN PO HEADACHE or MILD DISCOMFORT 11/11/20 19:40 12/06/20 17:06 Al Hydrox/Mg Hydrox/Simethicone (Mylanta) 30 ml Q4HP PRN PO HEARTBURN/INDIGESTION 11/11/20 19:40 Amlodipine Besylate (Norvasc) 5 mg DAILY PO 11/12/20 09:00 12/05/20 12:43 Cephalexin Monohydrate (Keflex) 500 mg Q6H PO 12/04/20 18:00 12/11/20 17:59 12/05/20 12:51 Diphenhydramine HCl (Benadryl) 50 mg Q6HP PRN PO AGITATION 12/03/20 12:25 12/05/20 01:28 Divalproex Sodium (Depakote Sprinkles) 500 mg BID PO 11/13/20 09:00 11/25/20 11:02 DC 11/25/20 09:30 Divalproex Sodium (Depakote Er) 250 mg DAILY PO 11/26/20 09:00 12/02/20 07:14 DC 12/01/20 09:55 Divalproex Sodium (Depakote Er) 500 mg BID PO 11/13/20 09:00 11/13/20 09:00 DC Divalproex Sodium (Depakote Er) 500 mg DAILY PO 12/04/20 09:00 12/06/20 10:27 DC 12/05/20 12:43 Divalproex Sodium (Depakote Er) 500 mg DAILY PO 12/02/20 09:00 12/04/20 08:53 DC Divalproex Sodium (Depakote Er) 500 mg QHS PO 11/25/20 21:00 11/30/20 22:07 DC 11/29/20 21:19 Divalproex Sodium (Depakote Er) 500 mg QHS PO 11/30/20 22:10 12/06/20 10:27 DC 12/04/20 22:00 Docusate Sodium (Colace) 100 mg BID PO 11/12/20 09:00 12/05/20 12:43 Haloperidol (Haldol) 5 mg Q6HP PRN PO AGITATION 12/03/20 12:25 12/05/20 12:54 Levetiracetam (Keppra Oral Solution) 500 mg BID PO 11/12/20 09:00 12/05/20 12:43 Levothyroxine Sodium (Synthroid) 100 mcg DAILY@06 PO 11/12/20 06:00 12/05/20 05:11 Lorazepam (Ativan) 0.5 mg BID PO 11/17/20 09:00 11/18/20 08:31 DC 11/17/20 19:56 Lorazepam (Ativan) 1 mg BID PO 11/14/20 09:00 11/17/20 07:27 DC 11/16/20 20:33 Lorazepam (Ativan) 1 mg QHS PO 12/01/20 21:00 12/06/20 10:27 DC 12/04/20 21:59 Lorazepam (Ativan) 1 mg TID PO 12/06/20 09:00 12/06/20 20:49 Magnesium Hydroxide (Milk Of Magnesia) 30 ml DAILYPRN PRN PO CONSTIPATION 11/11/20 19:40 Pantoprazole Sodium (Protonix) 40 mg DAILY PO 11/12/20 09:00 12/05/20 12:43 Polyethylene Glycol (Miralax) 1 pkt DAILY PO 11/12/20 09:00 12/05/20 12:42 Quetiapine Fumarate (SEROquel) 100 mg QHS PO 11/13/20 21:00 11/18/20 08:31 DC 11/17/20 19:56 Quetiapine Fumarate (SEROquel) 100 mg QHS PO 11/23/20 21:00 12/01/20 09:14 DC 11/29/20 21:19 Quetiapine Fumarate (SEROquel) 200 mg QHS PO 12/01/20 21:00 12/06/20 20:48 Risperidone (RisperDAL Consta) 37.5 mg Q14D@09 IM 12/07/20 09:00 Risperidone (RisperDAL LIQUID) 4 mg QHS PO 11/12/20 21:00 11/14/20 08:57 DC 11/12/20 21:48 Risperidone (RisperDAL) 2 mg BID PO 11/14/20 09:00 11/21/20 09:34 DC 11/20/20 21:02 Risperidone (RisperDAL) 2 mg QHS PO 11/21/20 21:00 11/23/20 08:57 DC 11/22/20 20:41 Risperidone (RisperDAL) 3 mg QHS PO 11/23/20 21:00 11/28/20 09:00 DC 11/27/20 21:58 Risperidone (RisperDAL) 4 mg DAILY@1700 PO 12/07/20 17:00 Risperidone (RisperDAL) 4 mg QHS PO 11/28/20 21:00 12/06/20 10:27 DC 12/04/20 22:01 Risperidone (RisperDAL) 4 mg QPM PO 12/06/20 17:00 12/07/20 09:42 DC 12/06/20 20:49 Sodium Chloride ([place] Saline Nasal Gel) APPLY SMALL RADHIKA... Q4HP PRN NA NASAL DRYNESS 12/02/20 10:50 Trazodone HCl (Desyrel) 50 mg QHSP PRN PO INSOMNIA 11/11/20 19:40 12/01/20 21:40 Valproic Acid (Depakene Solution) 500 mg 0800,1600 PO 12/06/20 08:00 12/06/20 15:48 Valproic Acid (Depakene) 500 mg BID PO 12/06/20 09:00 Cancel Allergies Coded Allergies: Sulfa (Sulfonamide Antibiotics) (Verified Allergy, Unknown, 01/21/19) aspirin (Verified Allergy, Unknown, 01/21/19) MARISOL HURD M.D. Dec 07, 2020 10:11
[2020-12-07] MEDS: VALPROIC ACID 250MG/5ML SOL ORAL SYRINGE *DRAW UP EXACT DOSE PO SCH ×2 (10:59→16:00)
[2020-12-07] MEDS: levETIRAcetam ORAL SOLUTION 500 MG/5 ML UDC PO SCH ×2 (10:59→23:04)
[2020-12-07] MEDS: risperiDONE 2 MG TAB PO SCH (17:00)
[2020-12-07 17:21] VITALS: BP 131/88
[2020-12-07] MEDS: QUEtiapine FUMARATE 200 MG TAB PO SCH (23:04)
[2020-12-08] MEDS: CEPHALEXIN 500 MG CAP PO SCH ×3 (05:31→12:00)
[2020-12-08] MEDS: LEVOTHYROXINE 100MCG TABLET (0.1MG) PO SCH (05:32)
[2020-12-08] MEDS: VALPROIC ACID 250MG/5ML SOL ORAL SYRINGE *DRAW UP EXACT DOSE PO SCH ×2 (08:00→15:05)
[2020-12-08] MEDS: DOCUSATE SODIUM 100MG CAPSULE PO SCH ×2 (09:00→21:00)
[2020-12-08] MEDS: levETIRAcetam ORAL SOLUTION 500 MG/5 ML UDC PO SCH ×2 (09:00→21:00)
[2020-12-08] MEDS: LORazepam 1 MG TAB PO SCH ×3 (09:00→18:31)
[2020-12-08] MEDS: PANTOPRAZOLE 40MG TAB (PROTONIX) PO SCH (09:00)
[2020-12-08] MEDS: amLODIPine 5 MG TAB PO SCH (09:00)
[2020-12-08] MEDS: MIRALAX *UNIT DOSE* 17GM PACKET PO SCH (09:00)
--- NOTE | 2020-12-08 09:33 | MHIPNPDOC ---
[facility] Progress Note Progress Note DATE OF SERVICE: 12/08/20 Patient remained awake and quite agitated yesterday and did not sleep. This morning she is awake alert in no acute distress but remains very pressured and moderately agitated. She is complaining of a things on the unit and claims that she will be better off in her own place. She recognized MD and knows where she is but is quite angry agitated and labile and not able to carry on rational conversation. She was not able to take her scheduled oral medications yesterday because of agitation and is willing to accept injectable medicine so we will start risperidone consta injection today. HISTORY:. VITAL SIGNS: See below. NEW TEST RESULTS:. CURRENT MEDICATIONS: See below. MENTAL STATUS EXAMINATION: Patient is a 70-year old female, who is pacing the room quite agitated. Speech: Is pressured and fragmented. Language skills are poor. Thought processes including: Fragmented. Thought content: Difficult to evaluate but did answer few questions relevantly. Abstract reasoning, and computation: Poor. Description of associations: Disorganized. Description of abnormal or psychotic thoughts: Remains labile and agitated but no gross delusional thinking. Judgment: Poor. Insight: Poor. Orientation: Appears oriented to the place. Recent and remote memory: Difficult to evaluate. Attention span and concentration: Poor. Language:. Fund of knowledge:. Mood: Somewhat angry irritable. Affect: Labile and agitated. DIAGNOSES: 1.. Schizoaffective disorder 2.. 3.. ASSESSMENT: Alert awake but no improvement MANAGEMENT PLAN: Start risperidone consta of 37.5 mg injection today. TIME SPENT: 20 minutes. Vital Signs Vital Signs Date Time Temp Pulse Resp B/P (MAP) Pulse Ox O2 Delivery O2 Flow Rate FiO2 12/07/20 17:21 97.4 93 18 131/88 (102) 12/05/20 17:09 97 12/05/20 12:00 Room Air Current Medications Current Medications Medications (Trade) Dose Ordered Sig/Marisa Route PRN Reason Start Time Stop Time Status Last Admin Dose Admin Acetaminophen (Tylenol Tab) 650 mg Q6HP PRN PO HEADACHE or MILD DISCOMFORT 11/11/20 19:40 12/06/20 17:06 Al Hydrox/Mg Hydrox/Simethicone (Mylanta) 30 ml Q4HP PRN PO HEARTBURN/INDIGESTION 11/11/20 19:40 Amlodipine Besylate (Norvasc) 5 mg DAILY PO 11/12/20 09:00 12/05/20 12:43 Cephalexin Monohydrate (Keflex) 500 mg Q6H PO 12/04/20 18:00 12/11/20 17:59 12/05/20 12:51 Diphenhydramine HCl (Benadryl) 50 mg Q6HP PRN PO AGITATION 12/03/20 12:25 12/05/20 01:28 Divalproex Sodium (Depakote Sprinkles) 500 mg BID PO 11/13/20 09:00 11/25/20 11:02 DC 11/25/20 09:30 Divalproex Sodium (Depakote Er) 250 mg DAILY PO 11/26/20 09:00 12/02/20 07:14 DC 12/01/20 09:55 Divalproex Sodium (Depakote Er) 500 mg BID PO 11/13/20 09:00 11/13/20 09:00 DC Divalproex Sodium (Depakote Er) 500 mg DAILY PO 12/04/20 09:00 12/06/20 10:27 DC 12/05/20 12:43 Divalproex Sodium (Depakote Er) 500 mg DAILY PO 12/02/20 09:00 12/04/20 08:53 DC Divalproex Sodium (Depakote Er) 500 mg QHS PO 11/25/20 21:00 11/30/20 22:07 DC 11/29/20 21:19 Divalproex Sodium (Depakote Er) 500 mg QHS PO 11/30/20 22:10 12/06/20 10:27 DC 12/04/20 22:00 Docusate Sodium (Colace) 100 mg BID PO 11/12/20 09:00 12/05/20 12:43 Haloperidol (Haldol) 5 mg Q6HP PRN PO AGITATION 12/03/20 12:25 12/05/20 12:54 Levetiracetam (Keppra Oral Solution) 500 mg BID PO 11/12/20 09:00 12/07/20 10:59 Levothyroxine Sodium (Synthroid) 100 mcg DAILY@06 PO 11/12/20 06:00 12/05/20 05:11 Lorazepam (Ativan) 0.5 mg BID PO 11/17/20 09:00 11/18/20 08:31 DC 11/17/20 19:56 Lorazepam (Ativan) 1 mg BID PO 11/14/20 09:00 11/17/20 07:27 DC 11/16/20 20:33 Lorazepam (Ativan) 1 mg QHS PO 12/01/20 21:00 12/06/20 10:27 DC 12/04/20 21:59 Lorazepam (Ativan) 1 mg TID PO 12/06/20 09:00 12/06/20 20:49 Magnesium Hydroxide (Milk Of Magnesia) 30 ml DAILYPRN PRN PO CONSTIPATION 11/11/20 19:40 Pantoprazole Sodium (Protonix) 40 mg DAILY PO 11/12/20 09:00 12/05/20 12:43 Polyethylene Glycol (Miralax) 1 pkt DAILY PO 11/12/20 09:00 12/05/20 12:42 Quetiapine Fumarate (SEROquel) 100 mg QHS PO 11/13/20 21:00 11/18/20 08:31 DC 11/17/20 19:56 Quetiapine Fumarate (SEROquel) 100 mg QHS PO 11/23/20 21:00 12/01/20 09:14 DC 11/29/20 21:19 Quetiapine Fumarate (SEROquel) 200 mg QHS PO 12/01/20 21:00 12/06/20 20:48 Risperidone (RisperDAL Consta) 37.5 mg Q14D@09 IM 12/07/20 09:00 12/07/20 10:54 DC Risperidone (RisperDAL Consta) 37.5 mg Q14D@09 IM 12/08/20 09:00 Risperidone (RisperDAL LIQUID) 4 mg QHS PO 11/12/20 21:00 11/14/20 08:57 DC 11/12/20 21:48 Risperidone (RisperDAL) 2 mg BID PO 11/14/20 09:00 11/21/20 09:34 DC 11/20/20 21:02 Risperidone (RisperDAL) 2 mg QHS PO 11/21/20 21:00 11/23/20 08:57 DC 11/22/20 20:41 Risperidone (RisperDAL) 3 mg QHS PO 11/23/20 21:00 11/28/20 09:00 DC 11/27/20 21:58 Risperidone (RisperDAL) 4 mg DAILY@1700 PO 12/07/20 17:00 Risperidone (RisperDAL) 4 mg QHS PO 11/28/20 21:00 12/06/20 10:27 DC 12/04/20 22:01 Risperidone (RisperDAL) 4 mg QPM PO 12/06/20 17:00 12/07/20 09:42 DC 12/06/20 20:49 Sodium Chloride ([place] Saline Nasal Gel) APPLY SMALL RADHIKA... Q4HP PRN NA NASAL DRYNESS 12/02/20 10:50 Trazodone HCl (Desyrel) 50 mg QHSP PRN PO INSOMNIA 11/11/20 19:40 12/01/20 21:40 Valproic Acid (Depakene Solution) 500 mg 0800,1600 PO 12/06/20 08:00 12/07/20 10:59 Valproic Acid (Depakene) 500 mg BID PO 12/06/20 09:00 Cancel Allergies Coded Allergies: Sulfa (Sulfonamide Antibiotics) (Verified Allergy, Unknown, 01/21/19) aspirin (Verified Allergy, Unknown, 01/21/19) MARISOL HURD M.D. Dec 08, 2020 09:33
[2020-12-08] MEDS: risperiDONE LONG-ACTING 37.5 MG/2 ML INJ (J2794 PER 0.5MG) IM SCH (10:57)
[2020-12-08] MEDS: risperiDONE 2 MG TAB PO SCH (16:01)
[2020-12-08] MEDS: cefTRIAXone SOD 1GM VIAL (J0696 PER 250MG) IM SCH (18:23)
[2020-12-08] MEDS: haloperidoL 5 MG TAB PO PRN (18:31)
[2020-12-08 18:39] VITALS: BP 140/68
[2020-12-08] MEDS: QUEtiapine FUMARATE 200 MG TAB PO SCH (21:00)
[2020-12-09] VITALS (9 sets, daily range): BP systolic 127–152; BP diastolic 59–75
[2020-12-09] MEDS: LEVOTHYROXINE 100MCG TABLET (0.1MG) PO SCH (07:02)
[2020-12-09] MEDS: VALPROIC ACID 250MG/5ML SOL ORAL SYRINGE *DRAW UP EXACT DOSE PO SCH ×2 (08:00→16:00)
[2020-12-09] MEDS: DOCUSATE SODIUM 100MG CAPSULE PO SCH ×2 (08:47→21:00)
[2020-12-09] MEDS: MIRALAX *UNIT DOSE* 17GM PACKET PO SCH (08:48)
[2020-12-09] MEDS: PANTOPRAZOLE 40MG TAB (PROTONIX) PO SCH (08:48)
[2020-12-09] MEDS: amLODIPine 5 MG TAB PO SCH (09:00)
[2020-12-09] MEDS: LORazepam 1 MG TAB PO SCH ×3 (09:00→21:00)
[2020-12-09] MEDS: levETIRAcetam ORAL SOLUTION 500 MG/5 ML UDC PO SCH ×2 (09:00→21:00)
--- NOTE | 2020-12-09 10:15 | MHIPNPDOC ---
[facility] Progress Note Progress Note DATE OF SERVICE: 12/09/20 The patient did receive risperidone injection yesterday morning but remained quite agitated through the day and finally received Haldol Ativan and Benadryl to control her agitation. She finally fell asleep and has slept through the night. She did not take her Depakote. Due to her frequent episodes of agitation she is not able to consistently take her Depakote. She remains very labile disorganized and frequently agitated and clearly needs further stabilization. HISTORY:. VITAL SIGNS: See below. NEW TEST RESULTS:. CURRENT MEDICATIONS: See below. MENTAL STATUS EXAMINATION: Patient is a 70-year old female, who is resting at this time. Speech: Is been very fragmented. Language skills are poor. Thought processes including: Disorganized. Thought content: Been agitated and paranoid. Abstract reasoning, and computati on: Poor. Description of associations: Disorganized. Description of abnormal or psychotic thoughts: Agitated and paranoid. Judgment: Poor. Insight: Poor. Orientation: When awake she is oriented to place. Recent and remote memory: Difficult to evaluate. Attention span and concentration: Poor. Language:. Fund of knowledge:. Mood: Angry labile. Affect: Labile and agitated. DIAGNOSES: 1.. Schizoaffective disorder 2.. 3.. ASSESSMENT: Remains extremely labile MANAGEMENT PLAN: Needs stabilization with risperidone injection and Depakote. TIME SPENT: 15 minutes. Vital Signs Vital Signs Date Time Temp Pulse Resp B/P (MAP) Pulse Ox O2 Delivery O2 Flow Rate FiO2 12/08/20 18:39 99.1 96 18 140/68 (92) 12/05/20 17:09 97 12/05/20 12:00 Room Air Current Medications Current Medications Medications (Trade) Dose Ordered Sig/Marisa Route PRN Reason Start Time Stop Time Status Last Admin Dose Admin Acetaminophen (Tylenol Tab) 650 mg Q6HP PRN PO HEADACHE or MILD DISCOMFORT 11/11/20 19:40 12/06/20 17:06 Al Hydrox/Mg Hydrox/Simethicone (Mylanta) 30 ml Q4HP PRN PO HEARTBURN/INDIGESTION 11/11/20 19:40 Amlodipine Besylate (Norvasc) 5 mg DAILY PO 11/12/20 09:00 12/05/20 12:43 Ceftriaxone Sodium (Rocephin) 1 gm Q24H IM 12/08/20 18:00 12/15/20 17:59 12/08/20 18:23 Cephalexin Monohydrate (Keflex) 500 mg Q6H PO 12/04/20 18:00 12/08/20 18:01 DC 12/05/20 12:51 Diphenhydramine HCl (Benadryl) 50 mg Q6HP PRN PO AGITATION 12/03/20 12:25 12/05/20 01:28 Divalproex Sodium (Depakote Sprinkles) 500 mg BID PO 11/13/20 09:00 11/25/20 11:02 DC 11/25/20 09:30 Divalproex Sodium (Depakote Er) 250 mg DAILY PO 11/26/20 09:00 12/02/20 07:14 DC 12/01/20 09:55 Divalproex Sodium (Depakote Er) 500 mg BID PO 11/13/20 09:00 11/13/20 09:00 DC Divalproex Sodium (Depakote Er) 500 mg DAILY PO 12/04/20 09:00 12/06/20 10:27 DC 12/05/20 12:43 Divalproex Sodium (Depakote Er) 500 mg DAILY PO 12/02/20 09:00 12/04/20 08:53 DC Divalproex Sodium (Depakote Er) 500 mg QHS PO 11/25/20 21:00 11/30/20 22:07 DC 11/29/20 21:19 Divalproex Sodium (Depakote Er) 500 mg QHS PO 11/30/20 22:10 12/06/20 10:27 DC 12/04/20 22:00 Docusate Sodium (Colace) 100 mg BID PO 11/12/20 09:00 12/05/20 12:43 Haloperidol (Haldol) 5 mg Q6HP PRN PO AGITATION 12/03/20 12:25 12/08/20 18:31 Levetiracetam (Keppra Oral Solution) 500 mg BID PO 11/12/20 09:00 12/07/20 10:59 Levothyroxine Sodium (Synthroid) 100 mcg DAILY@06 PO 11/12/20 06:00 12/05/20 05:11 Lorazepam (Ativan) 0.5 mg BID PO 11/17/20 09:00 11/18/20 08:31 DC 11/17/20 19:56 Lorazepam (Ativan) 1 mg BID PO 11/14/20 09:00 11/17/20 07:27 DC 11/16/20 20:33 Lorazepam (Ativan) 1 mg QHS PO 12/01/20 21:00 12/06/20 10:27 DC 12/04/20 21:59 Lorazepam (Ativan) 1 mg TID PO 12/06/20 09:00 12/08/20 18:31 Magnesium Hydroxide (Milk Of Magnesia) 30 ml DAILYPRN PRN PO CONSTIPATION 11/11/20 19:40 Pantoprazole Sodium (Protonix) 40 mg DAILY PO 11/12/20 09:00 12/05/20 12:43 Polyethylene Glycol (Miralax) 1 pkt DAILY PO 11/12/20 09:00 12/05/20 12:42 Quetiapine Fumarate (SEROquel) 100 mg QHS PO 11/13/20 21:00 11/18/20 08:31 DC 11/17/20 19:56 Quetiapine Fumarate (SEROquel) 100 mg QHS PO 11/23/20 21:00 12/01/20 09:14 DC 11/29/20 21:19 Quetiapine Fumarate (SEROquel) 200 mg QHS PO 12/01/20 21:00 12/06/20 20:48 Risperidone (RisperDAL Consta) 37.5 mg Q14D@09 IM 12/07/20 09:00 12/07/20 10:54 DC Risperidone (RisperDAL Consta) 37.5 mg Q14D@09 IM 12/08/20 09:00 12/08/20 10:57 Risperidone (RisperDAL LIQUID) 4 mg QHS PO 11/12/20 21:00 11/14/20 08:57 DC 11/12/20 21:48 Risperidone (RisperDAL) 2 mg BID PO 11/14/20 09:00 11/21/20 09:34 DC 11/20/20 21:02 Risperidone (RisperDAL) 2 mg QHS PO 11/21/20 21:00 11/23/20 08:57 DC 11/22/20 20:41 Risperidone (RisperDAL) 3 mg QHS PO 11/23/20 21:00 11/28/20 09:00 DC 11/27/20 21:58 Risperidone (RisperDAL) 4 mg DAILY@1700 PO 12/07/20 17:00 Risperidone (RisperDAL) 4 mg QHS PO 11/28/20 21:00 12/06/20 10:27 DC 12/04/20 22:01 Risperidone (RisperDAL) 4 mg QPM PO 12/06/20 17:00 12/07/20 09:42 DC 12/06/20 20:49 Sodium Chloride ([place] Saline Nasal Gel) APPLY SMALL RADHIKA... Q4HP PRN NA NASAL DRYNESS 12/02/20 10:50 Trazodone HCl (Desyrel) 50 mg QHSP PRN PO INSOMNIA 11/11/20 19:40 12/01/20 21:40 Valproic Acid (Depakene Solution) 500 mg 0800,1600 PO 12/06/20 08:00 12/07/20 10:59 Valproic Acid (Depakene) 500 mg BID PO 12/06/20 09:00 Cancel Allergies Coded Allergies: Sulfa (Sulfonamide Antibiotics) (Verified Allergy, Unknown, 01/21/19) aspirin (Verified Allergy, Unknown, 01/21/19) MARISOL HURD M.D. Dec 09, 2020 10:15
[2020-12-09] MEDS: risperiDONE 2 MG TAB PO SCH (17:00)
[2020-12-09] MEDS: cefTRIAXone SOD 1GM VIAL (J0696 PER 250MG) IM SCH (18:57)
[2020-12-09] MEDS ORDERED: LORazepam 2 MG/ML VIAL IM ONE (20:20)
[2020-12-09] MEDS ORDERED: diphenhydrAMINE 50MG/ML VIAL (J1200) IM ONE (20:20)
[2020-12-09] MEDS ORDERED: HALOPERIDOL DECANOATE 100 MG/ML VIAL (J1631) IM ONE (20:20)
[2020-12-09] MEDS: QUEtiapine FUMARATE 200 MG TAB PO SCH (21:00)
[2020-12-09] MEDS ORDERED: HALOPERIDOL 5MG/ML VIAL (J1630 PER 1) IM ONE (21:10)
[2020-12-10] MEDS: LEVOTHYROXINE 100MCG TABLET (0.1MG) PO SCH (07:25)
[2020-12-10] MEDS: VALPROIC ACID 250MG/5ML SOL ORAL SYRINGE *DRAW UP EXACT DOSE PO SCH ×2 (08:00→15:12)
[2020-12-10] MEDS: amLODIPine 5 MG TAB PO SCH (09:00)
[2020-12-10] MEDS: PANTOPRAZOLE 40MG TAB (PROTONIX) PO SCH (09:00)
[2020-12-10] MEDS: levETIRAcetam ORAL SOLUTION 500 MG/5 ML UDC PO SCH ×3 (09:00→21:50)
[2020-12-10] MEDS: LORazepam 1 MG TAB PO SCH ×4 (09:00→21:50)
[2020-12-10] MEDS: DOCUSATE SODIUM 100MG CAPSULE PO SCH ×3 (09:00→21:50)
[2020-12-10] MEDS: MIRALAX *UNIT DOSE* 17GM PACKET PO SCH (09:00)
[2020-12-10 16:07] VITALS: BP 147/65
[2020-12-10] MEDS: risperiDONE 2 MG TAB PO SCH (16:37)
[2020-12-10] MEDS: cefTRIAXone SOD 1GM VIAL (J0696 PER 250MG) IM SCH ×2 (17:43→21:50)
[2020-12-10] MEDS: QUEtiapine FUMARATE 200 MG TAB PO SCH ×2 (21:00→21:50)
[2020-12-11] MEDS: LEVOTHYROXINE 100MCG TABLET (0.1MG) PO SCH ×2 (05:38→05:42)
[2020-12-11] MEDS: MIRALAX *UNIT DOSE* 17GM PACKET PO SCH (09:00)
[2020-12-11] MEDS: levETIRAcetam ORAL SOLUTION 500 MG/5 ML UDC PO SCH ×2 (10:30→22:56)
[2020-12-11] MEDS: LORazepam 1 MG TAB PO SCH ×3 (10:31→22:55)
[2020-12-11] MEDS: amLODIPine 5 MG TAB PO SCH (10:31)
[2020-12-11] MEDS: DOCUSATE SODIUM 100MG CAPSULE PO SCH ×2 (10:32→21:00)
[2020-12-11] MEDS: PANTOPRAZOLE 40MG TAB (PROTONIX) PO SCH (10:33)
[2020-12-11] MEDS: VALPROIC ACID 250MG/5ML SOL ORAL SYRINGE *DRAW UP EXACT DOSE PO SCH ×2 (10:37→16:00)
--- NOTE | 2020-12-11 16:03 | MHIPN ---
PROGRESS NOTE DATE OF SERVICE: 12/10/2020 The patient is seen via telepsychiatry due to the current coronavirus crisis. The patient just cried and screamed the whole time. I could not make out anything that she was saying. Yesterday, the patient became pretty agitated and was aggressive with staff and we did have to do chemical restraint with Haldol 5 mg, Ativan 2 mg, Benadryl 50 mg. IM. MENTAL STATUS EXAM: Unable to complete. DIAGNOSIS: Schizoaffective disorder. TREATMENT PLAN: We will continue to evaluate this patient for continued psychotic symptoms and agitation and titrate her medications as indicated until she is stable.
[2020-12-11] MEDS: risperiDONE 2 MG TAB PO SCH (17:00)
[2020-12-11] MEDS: cefTRIAXone SOD 1GM VIAL (J0696 PER 250MG) IM SCH (18:00)
--- NOTE | 2020-12-11 22:09 | MHPR ---
POST-RESTRAINT DOCUMENTATION DATE: 12/09/2020 The patient was pretty aggressive yesterday, she was yelling and screaming and hitting staff, and staff tried multiple methods of such as redirection, support, and the patient did not respond to any of these methods and so, at that point, it was felt that she was a danger to others and she was given Haldol 5 mg, Ativan 2 mg, and Benadryl 50 mg intramuscular (IM). This is the post-restraint note. The effect of the restraint was actually good, the patient did eventually calm down. There were no changes to her treatment plans other than to continue to encourage her to take her medications.
[2020-12-11] MEDS: QUEtiapine FUMARATE 200 MG TAB PO SCH (22:56)
[2020-12-12] MEDS: LEVOTHYROXINE 100MCG TABLET (0.1MG) PO SCH (05:27)
[2020-12-12] MEDS: VALPROIC ACID 250MG/5ML SOL ORAL SYRINGE *DRAW UP EXACT DOSE PO SCH ×2 (08:00→16:00)
[2020-12-12] MEDS: MIRALAX *UNIT DOSE* 17GM PACKET PO SCH (09:00)
[2020-12-12] MEDS: amLODIPine 5 MG TAB PO SCH (09:00)
[2020-12-12] MEDS: DOCUSATE SODIUM 100MG CAPSULE PO SCH ×2 (09:00→21:00)
[2020-12-12] MEDS: PANTOPRAZOLE 40MG TAB (PROTONIX) PO SCH (09:00)
[2020-12-12] MEDS: levETIRAcetam ORAL SOLUTION 500 MG/5 ML UDC PO SCH ×2 (09:00→21:00)
--- NOTE | 2020-12-12 09:30 | MHIPNPDOC ---
[facility] Progress Note Progress Note DATE OF SERVICE: 12/12/20 Over the weekend the patient had some periods where she was more lucid and controlled and even attended some group activities. She is however still frequently agitated and did not sleep until she was given extra Haldol by injection. Overall she is physically more stable and not showing any physical distress and has been ambulating without assistance without any incident. Her mental status remains quite labile and agitated at times but she is not aggressive or assaultive or suicidal. We will observe with increased frequency but no more one-to-one close observation. HISTORY:. VITAL SIGNS: See below. NEW TEST RESULTS:. CURRENT MEDICATIONS: See below. MENTAL STATUS EXAMINATION: Patient is a 70-year old female, who is somewhat fragmented and restless but not agitated. Speech: Is rambling fragmented. Language skills are poor. Thought processes including: Flighty and disorganized. Thought content: Difficult to comprehend. Abstract reasoning, and computation: Poor. Description of associations: Disorganized. Description of abnormal or psychotic thoughts: No gross delusional thinking but showing disorganized thoughts. Judgment: Poor. Insight: Poor. Orientation: Knows she is in hospital. Recent and remote memory: No gross impairment. Attention span and concentration: Poor. Language:. Fund of knowledge:. Mood: At times irritable and demanding. Affect: Labile. DIAGNOSES: 1.. Schizoaffective disorder 2.. 3.. ASSESSMENT: Patient is physically more stable but mental status is labile and agitated MANAGEMENT PLAN: Continue with the current medications and stepdown close observation. TIME SPENT: 12 minutes. Vital Signs Vital Signs Date Time Temp Pulse Resp B/P (MAP) Pulse Ox O2 Delivery O2 Flow Rate FiO2 12/10/20 16:07 98.1 87 16 147/65 (92) 12/09/20 23:15 95 Room Air Current Medications Current Medications Medications (Trade) Dose Ordered Sig/Marisa Route PRN Reason Start Time Stop Time Status Last Admin Dose Admin Acetaminophen (Tylenol Tab) 650 mg Q6HP PRN PO HEADACHE or MILD DISCOMFORT 11/11/20 19:40 12/06/20 17:06 Al Hydrox/Mg Hydrox/Simethicone (Mylanta) 30 ml Q4HP PRN PO HEARTBURN/INDIGESTION 11/11/20 19:40 Amlodipine Besylate (Norvasc) 5 mg DAILY PO 11/12/20 09:00 12/11/20 10:31 Ceftriaxone Sodium (Rocephin) 1 gm Q24H IM 12/08/20 18:00 12/15/20 17:59 12/10/20 21:50 Cephalexin Monohydrate (Keflex) 500 mg Q6H PO 12/04/20 18:00 12/08/20 18:01 DC 12/05/20 12:51 Diphenhydramine HCl (Benadryl) 50 mg Q6HP PRN PO AGITATION 12/03/20 12:25 12/05/20 01:28 Divalproex Sodium (Depakote Sprinkles) 500 mg BID PO 11/13/20 09:00 11/25/20 11:02 DC 11/25/20 09:30 Divalproex Sodium (Depakote Er) 250 mg DAILY PO 11/26/20 09:00 12/02/20 07:14 DC 12/01/20 09:55 Divalproex Sodium (Depakote Er) 500 mg BID PO 11/13/20 09:00 11/13/20 09:00 DC Divalproex Sodium (Depakote Er) 500 mg DAILY PO 12/04/20 09:00 12/06/20 10:27 DC 12/05/20 12:43 Divalproex Sodium (Depakote Er) 500 mg DAILY PO 12/02/20 09:00 12/04/20 08:53 DC Divalproex Sodium (Depakote Er) 500 mg QHS PO 11/25/20 21:00 11/30/20 22:07 DC 11/29/20 21:19 Divalproex Sodium (Depakote Er) 500 mg QHS PO 11/30/20 22:10 12/06/20 10:27 DC 12/04/20 22:00 Docusate Sodium (Colace) 100 mg BID PO 11/12/20 09:00 12/11/20 10:32 Haloperidol (Haldol) 5 mg Q6HP PRN PO AGITATION 12/03/20 12:25 12/08/20 18:31 Levetiracetam (Keppra Oral Solution) 500 mg BID PO 11/12/20 09:00 12/11/20 10:30 Levothyroxine Sodium (Synthroid) 100 mcg DAILY@06 PO 11/12/20 06:00 12/05/20 05:11 Lorazepam (Ativan) 0.5 mg BID PO 11/17/20 09:00 11/18/20 08:31 DC 11/17/20 19:56 Lorazepam (Ativan) 1 mg BID PO 11/14/20 09:00 11/17/20 07:27 DC 11/16/20 20:33 Lorazepam (Ativan) 1 mg QHS PO 12/01/20 21:00 12/06/20 10:27 DC 12/04/20 21:59 Lorazepam (Ativan) 1 mg TID PO 12/06/20 09:00 12/12/20 08:49 DC 12/11/20 10:31 Magnesium Hydroxide (Milk Of Magnesia) 30 ml DAILYPRN PRN PO CONSTIPATION 11/11/20 19:40 Miscellaneous (Unresolved Clarification Entry) SEE LABEL COMMENTS DAILY XX 12/11/20 09:00 Pantoprazole Sodium (Protonix) 40 mg DAILY PO 11/12/20 09:00 12/11/20 10:33 Polyethylene Glycol (Miralax) 1 pkt DAILY PO 11/12/20 09:00 12/05/20 12:42 Quetiapine Fumarate (SEROquel) 100 mg QHS PO 11/13/20 21:00 11/18/20 08:31 DC 11/17/20 19:56 Quetiapine Fumarate (SEROquel) 100 mg QHS PO 11/23/20 21:00 12/01/20 09:14 DC 11/29/20 21:19 Quetiapine Fumarate (SEROquel) 200 mg QHS PO 12/01/20 21:00 12/06/20 20:48 Risperidone (RisperDAL Consta) 37.5 mg Q14D@09 IM 12/07/20 09:00 12/07/20 10:54 DC Risperidone (RisperDAL Consta) 37.5 mg Q14D@09 IM 12/08/20 09:00 12/08/20 10:57 Risperidone (RisperDAL LIQUID) 4 mg QHS PO 11/12/20 21:00 11/14/20 08:57 DC 11/12/20 21:48 Risperidone (RisperDAL) 2 mg BID PO 11/14/20 09:00 11/21/20 09:34 DC 11/20/20 21:02 Risperidone (RisperDAL) 2 mg QHS PO 11/21/20 21:00 11/23/20 08:57 DC 11/22/20 20:41 Risperidone (RisperDAL) 3 mg QHS PO 11/23/20 21:00 11/28/20 09:00 DC 11/27/20 21:58 Risperidone (RisperDAL) 4 mg DAILY@1700 PO 12/07/20 17:00 Risperidone (RisperDAL) 4 mg QHS PO 11/28/20 21:00 12/06/20 10:27 DC 12/04/20 22:01 Risperidone (RisperDAL) 4 mg QPM PO 12/06/20 17:00 12/07/20 09:42 DC 12/06/20 20:49 Sodium Chloride ([place] Saline Nasal Gel) APPLY SMALL RADHIKA... Q4HP PRN NA NASAL DRYNESS 12/02/20 10:50 Trazodone HCl (Desyrel) 50 mg QHSP PRN PO INSOMNIA 11/11/20 19:40 12/01/20 21:40 Valproic Acid (Depakene Solution) 500 mg 0800,1600 PO 12/06/20 08:00 12/11/20 10:37 Valproic Acid (Depakene) 500 mg BID PO 12/06/20 09:00 Cancel Allergies Coded Allergies: Sulfa (Sulfonamide Antibiotics) (Verified Allergy, Unknown, 01/21/19) aspirin (Verified Allergy, Unknown, 01/21/19) MARISOL HURD M.D. Dec 12, 2020 09:30
--- NOTE | 2020-12-12 10:42 | MHIPNPDOC ---
[facility] Progress Note Progress Note DATE OF SERVICE: 12/12/20 This progress note for Janice carbone is for December 05, 2020 visit that is somehow missing in the record. Patient was seen on December 05 for regular rounds. She has been intermittently agitated through the weekend and required extra medications for sedation. She is going through the pattern of being very agitated pressured and talking in very disorganized manner and frequently not taking her scheduled risperidone and Depakote which makes it very difficult to stabilize her. She is sleeping in a chair and is kept on the one-to-one close observation but is not in any acute physical distress. HISTORY:. VITAL SIGNS: See below. NEW TEST RESULTS:. CURRENT MEDICATIONS: See below. MENTAL STATUS EXAMINATION: Patient is a 70-year old female, who is in no acute distress. Speech: Is very fragmented and pressured. Language skills are poor. Thought processes including: Disorganized. Thought content: Appears very paranoid. Abstract reasoning, and computation: Poor. Description of associations: Disorganized. Description of abnormal or psychotic thoughts: At times very paranoid. Judgment: Poor. Insight:. poor. Orientation: Appears oriented to the place. Recent and remote memory: [Difficult to evaluate. Attention span and concentration: Poor. Language:. Fund of knowledge:. Mood: Angry irritable. Affect: Labile and frequently agitated. DIAGNOSES: 1.. Schizoaffective disorder 2.. 3.. ASSESSMENT: No significant improvement MANAGEMENT PLAN: Consider giving long-acting risperidone by injection. Continue with supportive therapy TIME SPENT: 15 minutes. Vital Signs Vital Signs Date Time Temp Pulse Resp B/P (MAP) Pulse Ox O2 Delivery O2 Flow Rate FiO2 12/10/20 16:07 98.1 87 16 147/65 (92) 12/09/20 23:15 95 Room Air Current Medications Current Medications Medications (Trade) Dose Ordered Sig/Marisa Route PRN Reason Start Time Stop Time Status Last Admin Dose Admin Acetaminophen (Tylenol Tab) 650 mg Q6HP PRN PO HEADACHE or MILD DISCOMFORT 11/11/20 19:40 12/06/20 17:06 Al Hydrox/Mg Hydrox/Simethicone (Mylanta) 30 ml Q4HP PRN PO HEARTBURN/INDIGESTION 11/11/20 19:40 Amlodipine Besylate (Norvasc) 5 mg DAILY PO 11/12/20 09:00 12/11/20 10:31 Ceftriaxone Sodium (Rocephin) 1 gm Q24H IM 12/08/20 18:00 12/15/20 17:59 12/10/20 21:50 Cephalexin Monohydrate (Keflex) 500 mg Q6H PO 12/04/20 18:00 12/08/20 18:01 DC 12/05/20 12:51 Diphenhydramine HCl (Benadryl) 50 mg Q6HP PRN PO AGITATION 12/03/20 12:25 12/05/20 01:28 Divalproex Sodium (Depakote Sprinkles) 500 mg BID PO 11/13/20 09:00 11/25/20 11:02 DC 11/25/20 09:30 Divalproex Sodium (Depakote Er) 250 mg DAILY PO 11/26/20 09:00 12/02/20 07:14 DC 12/01/20 09:55 Divalproex Sodium (Depakote Er) 500 mg BID PO 11/13/20 09:00 11/13/20 09:00 DC Divalproex Sodium (Depakote Er) 500 mg DAILY PO 12/04/20 09:00 12/06/20 10:27 DC 12/05/20 12:43 Divalproex Sodium (Depakote Er) 500 mg DAILY PO 12/02/20 09:00 12/04/20 08:53 DC Divalproex Sodium (Depakote Er) 500 mg QHS PO 11/25/20 21:00 11/30/20 22:07 DC 11/29/20 21:19 Divalproex Sodium (Depakote Er) 500 mg QHS PO 11/30/20 22:10 12/06/20 10:27 DC 12/04/20 22:00 Docusate Sodium (Colace) 100 mg BID PO 11/12/20 09:00 12/11/20 10:32 Haloperidol (Haldol) 5 mg Q6HP PRN PO AGITATION 12/03/20 12:25 12/08/20 18:31 Levetiracetam (Keppra Oral Solution) 500 mg BID PO 11/12/20 09:00 12/11/20 10:30 Levothyroxine Sodium (Synthroid) 100 mcg DAILY@06 PO 11/12/20 06:00 12/05/20 05:11 Lorazepam (Ativan) 0.5 mg BID PO 11/17/20 09:00 11/18/20 08:31 DC 11/17/20 19:56 Lorazepam (Ativan) 1 mg BID PO 11/14/20 09:00 11/17/20 07:27 DC 11/16/20 20:33 Lorazepam (Ativan) 1 mg QHS PO 12/01/20 21:00 12/06/20 10:27 DC 12/04/20 21:59 Lorazepam (Ativan) 1 mg TID PO 12/06/20 09:00 12/12/20 08:49 DC 12/11/20 10:31 Magnesium Hydroxide (Milk Of Magnesia) 30 ml DAILYPRN PRN PO CONSTIPATION 11/11/20 19:40 Miscellaneous (Unresolved Clarification Entry) SEE LABEL COMMENTS DAILY XX 12/11/20 09:00 Pantoprazole Sodium (Protonix) 40 mg DAILY PO 11/12/20 09:00 12/11/20 10:33 Polyethylene Glycol (Miralax) 1 pkt DAILY PO 11/12/20 09:00 12/05/20 12:42 Quetiapine Fumarate (SEROquel) 100 mg QHS PO 11/13/20 21:00 11/18/20 08:31 DC 11/17/20 19:56 Quetiapine Fumarate (SEROquel) 100 mg QHS PO 11/23/20 21:00 12/01/20 09:14 DC 11/29/20 21:19 Quetiapine Fumarate (SEROquel) 200 mg QHS PO 12/01/20 21:00 12/06/20 20:48 Risperidone (RisperDAL Consta) 37.5 mg Q14D@09 IM 12/07/20 09:00 12/07/20 10:54 DC Risperidone (RisperDAL Consta) 37.5 mg Q14D@09 IM 12/08/20 09:00 12/08/20 10:57 Risperidone (RisperDAL LIQUID) 4 mg QHS PO 11/12/20 21:00 11/14/20 08:57 DC 11/12/20 21:48 Risperidone (RisperDAL) 2 mg BID PO 11/14/20 09:00 11/21/20 09:34 DC 11/20/20 21:02 Risperidone (RisperDAL) 2 mg QHS PO 11/21/20 21:00 11/23/20 08:57 DC 11/22/20 20:41 Risperidone (RisperDAL) 3 mg QHS PO 11/23/20 21:00 11/28/20 09:00 DC 11/27/20 21:58 Risperidone (RisperDAL) 4 mg DAILY@1700 PO 12/07/20 17:00 Risperidone (RisperDAL) 4 mg QHS PO 11/28/20 21:00 12/06/20 10:27 DC 12/04/20 22:01 Risperidone (RisperDAL) 4 mg QPM PO 12/06/20 17:00 12/07/20 09:42 DC 12/06/20 20:49 Sodium Chloride ([facility] Saline Nasal Gel) APPLY SMALL RADHIKA... Q4HP PRN NA NASAL DRYNESS 12/02/20 10:50 Trazodone HCl (Desyrel) 50 mg QHSP PRN PO INSOMNIA 11/11/20 19:40 12/01/20 21:40 Valproic Acid (Depakene Solution) 500 mg 0800,1600 PO 12/06/20 08:00 12/11/20 10:37 Valproic Acid (Depakene) 500 mg BID PO 12/06/20 09:00 Cancel Allergies Coded Allergies: Sulfa (Sulfonamide Antibiotics) (Verified Allergy, Unknown, 01/21/19) aspirin (Verified Allergy, Unknown, 01/21/19) MARISOL HURD M.D. Dec 12, 2020 10:42
--- NOTE | 2020-12-12 12:21 | MHIPN ---
[facility] PSYCHIATRIC PROGRESS NOTE DATE OF SERVICE: 12/11/2020 The patient is seen via telepsychiatry due to the current Coronavirus crisis. HISTORY OF PRESENT ILLNESS: Today the patient stated "I'm better, but I want outta here." She does tend to ramble quite a lot and it is often hard to understand everything that she is saying, but she was more appropriate she was not screaming like she was yesterday and she said she did not sleep. MENTAL STATUS EXAM: This patient is alert. She seems to be oriented to person and place. Eye contact was fair. She was more directable today. She says that she is good. Affect is less labile. She is not suicidal or homicidal. She continues to have some paranoid thoughts. Concentration is fair. Memory intact. Insight and judgment is poor. DIAGNOSIS: Schizoaffective disorder. TREATMENT PLAN: At this point we will continue to monitor the patient for continued elevation and stabilization of her mood and continued resolution of any suicidal or homicidal thoughts. We will titrate her medications as indicated. DANGELO
[2020-12-12] MEDS: risperiDONE 2 MG TAB PO SCH (17:00)
[2020-12-12] MEDS: cefTRIAXone SOD 1GM VIAL (J0696 PER 250MG) IM SCH (18:52)
[2020-12-12 18:56] VITALS: BP 158/80
[2020-12-12 20:18] VITALS: BP 196/91
[2020-12-12 20:21] VITALS: BP 183/86
[2020-12-12] MEDS ORDERED: LORazepam 0.5 MG TAB PO ONE (20:35)
--- NOTE | 2020-12-12 20:55 | IPNPDOC ---
Text Note Date of Service The patient was seen on 12/12/20. NOTE TIME OF SERVICE 832PM I was informed that the patient had a witnessed fall backwards while walking in her room. At the time of my assessment the patient was anxious, teary and holding the back of her head. She denied having chest pain and didn't provide a clear answer when I asked her if she was dizzy. HR 89/ RR 20 / T 99.3 / BP 196/91/ O2 95% on RA PE anxious / seated in wheel chair/ hands are holding her head, she refuses to move her arms / she refuses my request to move her head side to side or up and down/ EOMI / MMM &P/ pupils reactive to light /she is able to move her legs Plan: acetaminophen and ativan stat prior to transport for CT head and neck / when she returns we can obtain an EKG & orthostats (if she will cooperate) & repeat her BP prior to administering more BP meds (I suspect the acute elevation in her BP is due to pain) / resume 1:1 sitter LATE ENTRY 1007PM CT of the head and neck were unremarkable repeat BP was 153/67 / the patient refused orthostats LATE ENTRY EKG reviewed, no acute ST changes QTC 433 VS,Fishbone, I+O VS, Fishbone, I+O Vital Signs Date Time Temp Pulse Resp B/P (MAP) Pulse Ox O2 Delivery O2 Flow Rate FiO2 12/12/20 18:56 99.0 99 18 158/80 (106) 12/09/20 23:15 95 Room Air GRETEL EVANS MD Dec 12, 2020 20:55
[2020-12-12] MEDS: QUEtiapine FUMARATE 200 MG TAB PO SCH (21:00)
[2020-12-12 21:30] VITALS: BP 153/67
--- NOTE | 2020-12-12 21:40 | REPVR ---
PROCEDURE INFORMATION: Exam: CT Head Without Contrast Exam date and time: 12/12/2020 8:52 PM Age: 70 years old Clinical indication: Injury or trauma; Fall; Blunt trauma (contusions or hematomas) TECHNIQUE: Imaging protocol: Computed tomography of the head without contrast. Radiation optimization: All CT scans at this facility use at least one of these dose optimization techniques: automated exposure control; mA and/or kV adjustment per patient size (includes targeted exams where dose is matched to clinical indication); or iterative reconstruction. COMPARISON: CT Head without contrast 10/27/2020 6:38 PM FINDINGS: Brain: There are global involutional changes of the brain which are in keeping with the patient's age. Periventricular hypodensities are nonspecific but most likely reflect chronic microvascular ischemic disease. There is no evidence of intracranial hemorrhage. No abnormal extra-axial fluid collections are identified. No mass effect or midline shift is seen. Jett-white differentiation is preserved throughout. Cerebral ventricles: No ventriculomegaly. Paranasal sinuses: The visualized sinuses are unremarkable. Mastoid air cells: There is no mastoid effusion detected. Bones/joints: No calvarial fracture is seen. IMPRESSION: No acute intracranial pathology demonstrated by CT. Electronically signed by: Nancy Diaz On 12/12/2020 21:40:14 PM
--- NOTE | 2020-12-12 21:45 | REPVR ---
PROCEDURE INFORMATION: Exam: CT Cervical Spine Without Contrast Exam date and time: 12/12/2020 8:52 PM Age: 70 years old Clinical indication: Injury or trauma; Fall; Blunt trauma TECHNIQUE: Imaging protocol: Computed tomography images of the cervical spine without contrast. Radiation optimization: All CT scans at this facility use at least one of these dose optimization techniques: automated exposure control; mA and/or kV adjustment per patient size (includes targeted exams where dose is matched to clinical indication); or iterative reconstruction. COMPARISON: CT Head without contrast 10/27/2020 6:38 PM FINDINGS: Bones/joints: No anterior wedging deformity. No acute lucent fracture lines are seen. There are spondylitic changes of the cervical spine, involving the C4-C5 through C6-C7 levels. Discs/Spinal canal/Neural foramina: No severe central canal or neural foraminal stenosis is demonstrated by CT. Lungs: Lung apices are normal. IMPRESSION: No acute cervical spinal injury demonstrated by CT. Electronically signed by: Nancy Diaz On 12/12/2020 21:44:39 PM
--- NOTE | 2020-12-12 22:47 | ECGEPIP ---
[facility] Test Date: 2020-12-12 Pat Name: BASSAM AHUMADA Department: Room: [place] [address] Gender: Female Pharmacologist: KRISTEN : 1950 Requested By: GRETEL EVANS Order Number: [id number] Reading MD: Aron Chavira Measurements Intervals [place] Rate: 90 P: 60 FL: 152 QRS: -44 QRSD: 72 T: 29 QT: 354 QTc: 433 Interpretive Statements Normal sinus rhythm Left axis deviation. Left anterior hemiblock Minimal voltage criteria for LVH, may be normal variant ( R in aVL ) Artifact in the limb lead(s) and baseline wander in Compared to prior tracings (4) in the system. No remarkable changes Electronically Signed on 12-12-2020 22:47:00 EDT by Aron Chavira
[2020-12-13] MEDS: LEVOTHYROXINE 100MCG TABLET (0.1MG) PO SCH (05:27)
[2020-12-13] MEDS: VALPROIC ACID 250MG/5ML SOL ORAL SYRINGE *DRAW UP EXACT DOSE PO SCH ×2 (08:00→16:00)
[2020-12-13] MEDS: amLODIPine 5 MG TAB PO SCH (09:00)
[2020-12-13] MEDS: DOCUSATE SODIUM 100MG CAPSULE PO SCH ×2 (09:00→21:00)
[2020-12-13] MEDS: levETIRAcetam ORAL SOLUTION 500 MG/5 ML UDC PO SCH ×3 (09:00→22:04)
[2020-12-13] MEDS: PANTOPRAZOLE 40MG TAB (PROTONIX) PO SCH (09:00)
[2020-12-13] MEDS: MIRALAX *UNIT DOSE* 17GM PACKET PO SCH (09:00)
[2020-12-13] MEDS: BENZTROPINE 1 MG TAB PO SCH ×2 (09:00→22:03)
--- NOTE | 2020-12-13 09:10 | MHIPNPDOC ---
[facility] Progress Note Progress Note DATE OF SERVICE: 12/13/20 Patient did not sleep last night again and has been awake moderately agitated on and off. She is a however in better control even with decreased level of obse rvation. She is showing slight tremor on her both arms and hands and appears stiff but on examination there is no cogwheeling or significant rigidity. She is been leaning on her chair when sitting down and there is some concern with a possible side effect from combination of risperidone injection and oral risperidone. I will decrease oral risperidone to 2 mg at bedtime and start Cogentin 1 mg twice a day and observe. HISTORY:. VITAL SIGNS: See below. NEW TEST RESULTS:. CURRENT MEDICATIONS: See below. MENTAL STATUS EXAMINATION: Patient is a 70-year old female, who is alert awake but pressured and rambling. Speech: Is not able to carry on rational conversation. Language skills are poor. Thought processes including: [Fragmented. Thought content: Mumbling and fragmented and not very coherent. Abstract reasoning, and computation: Poor. Description of associations: Disorganized. Description of abnormal or psychotic thoughts: Difficult to evaluate. Judgment: Poor. Insight: Poor. Orientation: Appears oriented to the place. Recent and remote memory: Difficult to evaluate. Attention span and concentration:. Language:. Fund of knowledge:. Mood: Not as angry or hostile. Affect: Labile moderately agitated. DIAGNOSES: 1.. Schizoaffective disorder 2.. 3.. ASSESSMENT: Not as agitated and aggressive and in better control MANAGEMENT PLAN:. Continue with the supportive therapy and medication changes TIME SPENT: 20 minutes. Vital Signs Vital Signs Date Time Temp Pulse Resp B/P (MAP) Pulse Ox O2 Delivery O2 Flow Rate FiO2 12/12/20 21:30 95 153/67 (95) 12/12/20 20:18 99.3 18 95 Room Air Laboratory Data 24H Labs Laboratory Tests 2 12/12/20 20:29: Bedside Glucose (Misc Panel) 93 Current Medications Current Medications Medications (Trade) Dose Ordered Sig/Marisa Route PRN Reason Start Time Stop Time Status Last Admin Dose Admin Acetaminophen (Tylenol Tab) 650 mg Q6HP PRN PO HEADACHE or MILD DISCOMFORT 11/11/20 19:40 12/06/20 17:06 Al Hydrox/Mg Hydrox/Simethicone (Mylanta) 30 ml Q4HP PRN PO HEARTBURN/INDIGESTION 11/11/20 19:40 Amlodipine Besylate (Norvasc) 5 mg DAILY PO 11/12/20 09:00 12/11/20 10:31 Benztropine Mesylate (Cogentin) 1 mg BID PO 12/13/20 21:00 UNV Ceftriaxone Sodium (Rocephin) 1 gm Q24H IM 12/08/20 18:00 12/15/20 17:59 12/12/20 18:52 Cephalexin Monohydrate (Keflex) 500 mg Q6H PO 12/04/20 18:00 12/08/20 18:01 DC 12/05/20 12:51 Diphenhydramine HCl (Benadryl) 50 mg Q6HP PRN PO AGITATION 12/03/20 12:25 12/05/20 01:28 Divalproex Sodium (Depakote Sprinkles) 500 mg BID PO 11/13/20 09:00 11/25/20 11:02 DC 11/25/20 09:30 Divalproex Sodium (Depakote Er) 250 mg DAILY PO 11/26/20 09:00 12/02/20 07:14 DC 12/01/20 09:55 Divalproex Sodium (Depakote Er) 500 mg BID PO 11/13/20 09:00 11/13/20 09:00 DC Divalproex Sodium (Depakote Er) 500 mg DAILY PO 12/04/20 09:00 12/06/20 10:27 DC 12/05/20 12:43 Divalproex Sodium (Depakote Er) 500 mg DAILY PO 12/02/20 09:00 12/04/20 08:53 DC Divalproex Sodium (Depakote Er) 500 mg QHS PO 11/25/20 21:00 11/30/20 22:07 DC 11/29/20 21:19 Divalproex Sodium (Depakote Er) 500 mg QHS PO 11/30/20 22:10 12/06/20 10:27 DC 12/04/20 22:00 Docusate Sodium (Colace) 100 mg BID PO 11/12/20 09:00 12/11/20 10:32 Haloperidol (Haldol) 5 mg Q6HP PRN PO AGITATION 12/03/20 12:25 12/08/20 18:31 Levetiracetam (Keppra Oral Solution) 500 mg BID PO 11/12/20 09:00 12/11/20 10:30 Levothyroxine Sodium (Synthroid) 100 mcg DAILY@06 PO 11/12/20 06:00 12/05/20 05:11 Lorazepam (Ativan) 0.5 mg BID PO 11/17/20 09:00 11/18/20 08:31 DC 11/17/20 19:56 Lorazepam (Ativan) 1 mg BID PO 11/14/20 09:00 11/17/20 07:27 DC 11/16/20 20:33 Lorazepam (Ativan) 1 mg QHS PO 12/01/20 21:00 12/06/20 10:27 DC 12/04/20 21:59 Lorazepam (Ativan) 1 mg TID PO 12/06/20 09:00 12/12/20 08:49 DC 12/11/20 10:31 Magnesium Hydroxide (Milk Of Magnesia) 30 ml DAILYPRN PRN PO CONSTIPATION 11/11/20 19:40 Miscellaneous (Unresolved Clarification Entry) SEE LABEL COMMENTS DAILY XX 12/11/20 09:00 Pantoprazole Sodium (Protonix) 40 mg DAILY PO 11/12/20 09:00 12/11/20 10:33 Polyethylene Glycol (Miralax) 1 pkt DAILY PO 11/12/20 09:00 12/05/20 12:42 Quetiapine Fumarate (SEROquel) 100 mg QHS PO 11/13/20 21:00 11/18/20 08:31 DC 11/17/20 19:56 Quetiapine Fumarate (SEROquel) 100 mg QHS PO 11/23/20 21:00 12/01/20 09:14 DC 11/29/20 21:19 Quetiapine Fumarate (SEROquel) 200 mg QHS PO 12/01/20 21:00 12/06/20 20:48 Risperidone (RisperDAL Consta) 37.5 mg Q14D@09 IM 12/07/20 09:00 12/07/20 10:54 DC Risperidone (RisperDAL Consta) 37.5 mg Q14D@09 IM 12/08/20 09:00 12/08/20 10:57 Risperidone (RisperDAL LIQUID) 4 mg QHS PO 11/12/20 21:00 11/14/20 08:57 DC 11/12/20 21:48 Risperidone (RisperDAL) 2 mg BID PO 11/14/20 09:00 11/21/20 09:34 DC 11/20/20 21:02 Risperidone (RisperDAL) 2 mg QHS PO 11/21/20 21:00 11/23/20 08:57 DC 11/22/20 20:41 Risperidone (RisperDAL) 3 mg QHS PO 11/23/20 21:00 11/28/20 09:00 DC 11/27/20 21:58 Risperidone (RisperDAL) 4 mg DAILY@1700 PO 12/07/20 17:00 Risperidone (RisperDAL) 4 mg QHS PO 11/28/20 21:00 12/06/20 10:27 DC 12/04/20 22:01 Risperidone (RisperDAL) 4 mg QPM PO 12/06/20 17:00 12/07/20 09:42 DC 12/06/20 20:49 Sodium Chloride ([place] Saline Nasal Gel) APPLY SMALL RADHIKA... Q4HP PRN NA NASAL DRYNESS 12/02/20 10:50 Trazodone HCl (Desyrel) 50 mg QHSP PRN PO INSOMNIA 11/11/20 19:40 12/01/20 21:40 Valproic Acid (Depakene Solution) 500 mg 0800,1600 PO 12/06/20 08:00 12/11/20 10:37 Valproic Acid (Depakene) 500 mg BID PO 12/06/20 09:00 Cancel Allergies Coded Allergies: Sulfa (Sulfonamide Antibiotics) (Verified Allergy, Unknown, 01/21/19) aspirin (Verified Allergy, Unknown, 01/21/19) MARISOL HURD M.D. Dec 13, 2020 09:10
[2020-12-13] MEDS ORDERED: BENZTROPINE MESYLATE 2MG/2ML VIAL IM ONE (09:50)
--- NOTE | 2020-12-13 11:38 | REP ---
INDICATION: fall, swelling and pain. COMPARISON: None. TECHNIQUE: Five views of the right wrist. FINDINGS: Five views of the right wrist demonstrate a impacted but otherwise nondisplaced fracture of the distal radius and associated nondisplaced ulnar styloid fracture. There is mild diffuse osteopenia. There is associated soft tissue swelling. No carpal fracture is appreciated. IMPRESSION: Slightly impacted nondisplaced distal radial fracture with associated ulnar styloid chip fracture. Mild diffuse osteopenia. <Electronically signed by Anand Poe > 12/13/20 [id number]
--- NOTE | 2020-12-13 11:39 | REP ---
INDICATION: pain after fall. COMPARISON: None. TECHNIQUE: AP and lateral views of the right forearm. FINDINGS: AP and latter views of the oral right forearm demonstrate a slightly impacted nondisplaced but intra-articular fracture of the distal radial metaphysis. There is motion artifact on the lateral view but associated soft tissue swelling is seen. And ulnar styloid chip fractures suspected as well.. . No opaque foreign body noted. IMPRESSION: Distal radial fracture, a slightly impacted. Intra-articular.. <Electronically signed by Anand Poe > 12/13/20 [id number]
--- NOTE | 2020-12-13 13:16 | IPNPDOC ---
Text Note Date of Service The patient was seen on 12/13/20. NOTE Subjective: I received multiple pages from nursing staff down [facility] about the patient's wrist bothering her. Patient apparently had a fall last night in which she fell backwards while walking in her room. Patient was taken to for a CT of the head and neck which did not show any fractures or other acute findings. This morning, patient was complaining of pain in her wrist and the nurse r eported swelling over her right wrist and forearm. X-rays were ordered and the patient was seen. Patient did not want me to touch the arm. Patient was difficult to understand however, the patient did voice discomfort and pain over her wrist and her elbow. Patient did not complain of any pain anywhere else. Patient was otherwise doing well. Review of systems: General: Patient denies fevers HEENT: Patient denies headaches Cardiovascular: Patient denies chest pain Respiratory: Patient denies shortness of breath, cough GI: Patient denies abdominal pain, nausea, vomiting, diarrhea : Patient denies increased frequency or pain with urination Extremities: Patient reports pain and swelling in her right upper extremity as above Neurological: Patient denies numbness or tingling in legs Physical exam: Vitals: See below General: Alert and oriented female patient who is difficult to understand but is able to answer questions who was sitting in the chair next to her bed when I walked in. Patient did not appear to be in acute distress. HEENT: Normocephalic, atraumatic, moist mucous membranes. Neck: No lymphadenopathy or thyromegaly Cardiac: Regular rate and rhythm, no murmurs, normal S1, normal S2 Pulm: Clear to auscultation bilaterally. No wheezes, rhonchi, rales Abd: Nondistended, nontender to palpation, normal bowel sounds Ext: Acute swelling without deformity of the right wrist with ecchymosis. There is also ecchymosis about the right shoulder and right elbow. Patient was neurovascularly intact distal to the injuries. Labs: See below Imaging: X-ray of the right wrist performed on 12/13/2020 was reported to show slightly impacted nondisplaced distal radial fracture with associated ulnar styloid chip fracture. Mild diffuse osteopenia. X-ray of the right forearm performed on 12/13/2020 was reported to show slightly impacted nondisplaced but intra-articular fracture of the distal radial m etaphysis. Assessment/plan: Patient is a 70-year-old female who is in the inpatient mental health unit for schizoaffective disorder who fell last night and has intra-articular fracture of the distal right radial metaphysis 1. Intra-articular right radial fracture. I spoke with Dr. Gallo of orthopedic surgery who asked for a CT of the wrist to further evaluate the extent of the fracture. Depending on the extent of the fracture, patient may need to go to the operating room. Patient has been placed n.p.o. at this time in case the patient will need to go to the operating room later on today. Due to the patient complaining of pain in her elbow and shoulder, patient will have x-rays of her elbow, humerus, and shoulder performed as well. 2. Schizoaffective disorder. Treatment per psychiatry. Disposition: Pending placement of splint and psychiatry discharging patient. Late entry at 1643: I spoke with orthopedics surgery who will not be performing surgery tonight. Patient's diet has been switched from n.p.o. to a regular diet. Due to the patient's pain and patient not taking any oral medications, patient will be given a one-time dose of Toradol IM. VS,Fishbone, I+O VS, Fishbone, I+O Vital Signs Date Time Temp Pulse Resp B/P (MAP) Pulse Ox O2 Delivery O2 Flow Rate FiO2 12/12/20 21:30 95 153/67 (95) 12/12/20 20:18 99.3 18 95 Room Air LILLIAN,GERBER STEVENS Dec 13, 2020 13:15
--- NOTE | 2020-12-13 14:24 | REP ---
INDICATION: wrist fracture. COMPARISON: X-ray wrist and forearm this date. TECHNIQUE: Axial images with the forearm and wrist held horizontally across the abdominal wall with coronal and sagittal reconstructions attempted. FINDINGS: This is a nondiagnostic examination. The images and technologist notes would indicate patient is unable to hold still for the examination. There is too much motion artifact to glean any diagnostic information on these images. IMPRESSION: Nondiagnostic CT. Too much motion artifact. Patient unable to hold still for the examination. <Electronically signed by Oscar Dave > 12/13/20 [id number]
--- NOTE | 2020-12-13 14:27 | REP ---
INDICATION: pain after fall. COMPARISON: None. TECHNIQUE: AP and lateral views of the right humerus are provided FINDINGS: . AP and lateral views of the right humerus demonstrate normal bones, joints, and soft tissues. No fracture or subluxation is seen. No opaque foreign body noted. IMPRESSION: Negative right humerus series. <Electronically signed by Anand Poe > 12/13/20 [id number]
--- NOTE | 2020-12-13 14:33 | REP ---
INDICATION: pain after fall. COMPARISON: None. TECHNIQUE: Three views of the right shoulder are provided FINDINGS: The right glenohumeral and acromioclavicular joints are normally aligned. Periarticular soft tissues are unremarkable. No fracture or subluxation is seen. The visualized right hemithorax structures are intact. IMPRESSION: Negative radiographs of the right shoulder. No fracture or subluxation seen. <Electronically signed by Anand Poe > 12/13/20 [id number]
--- NOTE | 2020-12-13 14:33 | REP ---
INDICATION: pain after fall. COMPARISON: None. TECHNIQUE: Four views of the right elbow are provided. FINDINGS: Four views of the right elbow show a small tiny fragment of bone adjacent toa the cortical surface of the olecranon process posteriorly. This could be a tiny chip fracture. This should be correlated with area of tenderness to palpation. There is not much soft tissue swelling. The lateral view is less than optimally positioned. Bones, joints and soft tissues are otherwise unremarkable. IMPRESSION: Question chip fracture at the olecranon process. Correlate with area of tenderness to palpation on physical exam.. <Electronically signed by Anand Poe > 12/13/20 [id number]
[2020-12-13 17:48] VITALS: BP 138/65
[2020-12-13] MEDS ORDERED: KETOROLAC 60MG 2ML VIAL IM ONE (18:00)
[2020-12-13] MEDS: cefTRIAXone SOD 1GM VIAL (J0696 PER 250MG) IM SCH (18:20)
--- NOTE | 2020-12-13 20:25 | CR ---
CONSULTATION DATE: 12/13/2020 REASON FOR CONSULTATION: Right upper extremity pain after a fall. HISTORY OF PRESENT ILLNESS: The patient is a 70-year-old female with extensive past medical and psychiatric history who was admitted for suicidal ideation and attempt. She fell on her right side a few days ago and sustained injury to her right upper extremity. She by report is chief complaint of right wrist pain. The patient was seen at bedside and very difficult to converse with her. She was a very poor historian and unable to formulate full thoughts to elaborate on her pain or willingness to comply with an exam or treatment. Otherwise the patient has no other areas of pain on my evaluation. She only points to her wrist. PAST MEDICAL HISTORY: The patient's past medical history is significant for: 1. Bipolar disorder. 2. Gastroesophageal reflux disease. 3. Hypertension. 4. Seizures. 5. Schizoaffective disorder. 6. Seasonal allergies. 7. Hyperlipidemia. 8. Vertigo. 9. Hypothyroid. 10. Anxiety. 11. Dementia. 12. Headaches. 13. Migraines. 14. Aneurysm. 15. Hyperlipidemia. 16. Osteoporosis. 17. Osteoarthritis. PAST SURGICAL HISTORY: The patient's past surgical history is significant for: 1. Perforated stomach ulcer. 2. Total abdominal hysterectomy. 3. Breast biopsy. 4. Eyelid repair. 5. Colonoscopy. FAMILY HISTORY: Maternal aunt has a history of pancreatic cancer. SOCIAL HISTORY: She denies tobacco, alcohol or illicit drug use. ALLERGIES: 1. Sulfa. 2. Aspirin. MEDICATIONS: See Med Reconciliation. REVIEW OF SYSTEMS: The patient's review of systems was unable to be obtained based on the patient's rambling and not able to comply with history. PHYSICAL EXAMINATION: GENERAL APPEARANCE: Disheveled, speaking fast and unable to understand her. RESPIRATORY: Non labored breathing, equal chest rise and fall. CARDIAC: Regular rate and rhythm. ABDOMEN: Nontender, nondistended. PSYCH: Anxious and rambling, not obviously aware to the situation. MUSCULOSKELETAL: Focus on the right upper extremity demonstrates no breaks in the skin. The patient is noncompliant with the exam. She is tender to palpation over the right wrist. No other areas of tenderness to palpation. Range of motion was difficult to assess based on the patient's noncompliance. The patient did not allow me to range her or actively range herself. She was noncompliant with a sensory and motor exam. She had 2+ radial pulse and brisk capillary refill in all digits. IMAGING DATA: Review of the radiographs of the right upper extremity demonstrate right distal radius fracture with minimal displacement. There is slight apex volar angulation and some impaction. A CT scan was obtained but it was non diagnostic due to motion artifact from the patient moving around during the exam. On the elbow film there is a very small osseous gloria off the olecranon but it is not consistent with any pain on exam. ASSESSMENT AND PLAN: This is a 70-year-old female with extensive psychiatric history, noncompliant on exam and a difficult historian with a right distal radius fracture. I attempted to have the patient put on a removable wrist brace. I also attempted to do a volar slab splint. The patient was resistant to both of these and was only willing to allow me to put on a soft bulky wrapping. This gave the patient some comfort but I am doubtful that she will keep it on. Based on her baseline status with regards to her behavioral health and her functional status, I think she would do just fine with conservative treatment in treating just the pain. Ideally, we would at least put her in a cast but I do not suspect that she would tolerate application of a short arm cast by any means, let alone an attempt at closed reduction. But again, I do not think that based on her baseline status she would require anything further than this conservative treatment. If she does take off the soft wrap, then I recommend just attempting to have her wear the removable wrist brace for comfort. If she does not want this, then that is okay as well. Depending on her length of stay, she may or may not require any orthopedic follow up. If she does discharge anytime soon, please contact me to arrange disposition for her to have follow up with the orthopedic clinic [phone]. Otherwise Ortho will to sign off at this point. If any new concerns, please contact me.
[2020-12-13] MEDS: QUEtiapine FUMARATE 200 MG TAB PO SCH (21:00)
[2020-12-13] MEDS: risperiDONE 2 MG TAB PO SCH (21:00)
[2020-12-14] MEDS: LEVOTHYROXINE 100MCG TABLET (0.1MG) PO SCH (06:00)
[2020-12-14] MEDS: levETIRAcetam ORAL SOLUTION 500 MG/5 ML UDC PO SCH ×2 (09:00→20:20)
[2020-12-14] MEDS: DOCUSATE SODIUM 100MG CAPSULE PO SCH ×2 (09:00→20:20)
[2020-12-14] MEDS: BENZTROPINE 1 MG TAB PO SCH ×2 (09:00→20:19)
[2020-12-14] MEDS: MIRALAX *UNIT DOSE* 17GM PACKET PO SCH (09:00)
[2020-12-14] MEDS: PANTOPRAZOLE 40MG TAB (PROTONIX) PO SCH (09:00)
[2020-12-14] MEDS: amLODIPine 5 MG TAB PO SCH (09:00)
[2020-12-14] MEDS: VALPROIC ACID 250MG/5ML SOL ORAL SYRINGE *DRAW UP EXACT DOSE PO SCH ×2 (09:05→16:00)
[2020-12-14] MEDS ORDERED: KETOROLAC 30 MG/ML 1ML VIAL IM PRN (09:45)
--- NOTE | 2020-12-14 11:57 | MHIPNPDOC ---
[facility] Progress Note Progress Note DATE OF SERVICE: 12/14/20 The patient apparently suffered a wrist fracture and was seen by orthopedic doctor and is on brace. She appears to be in moderate pain so we will give her pain medications. She has cooperated with risperidone yesterday and is definitely not as agitated or labile. She is still mumbling disorganized but is able to make her wishes to be known and indicates that she is in moderate pain. We will continue with her risperidone and supportive therapy. HISTORY:. VITAL SIGNS: See below. NEW TEST RESULTS:. CURRENT MEDICATIONS: See below. MENTAL STATUS EXAMINATION: Patient is a 70-year old female, who is in better control. Speech: Is rambling disorganized. Language skills are poor. Thought processes including: Disorganized. Thought content: Difficult to evaluate. Abstract reasoning, and computation: Poor. Description of associations: Quite disorganized. Description of abnormal or psychotic thoughts:. Judgment: Poor. Insight:. poor. Orientation: Oriented to place. Recent and remote memory: Difficult to evaluate. Attention span and concentration:. Language:. Fund of knowledge:. Mood: Not as angry agitated. Affect: Blunted. DIAGNOSES: 1.. Schizoaffective disorder 2.. 3.. ASSESSMENT: Continue with the current medicine and supportive therapy MANAGEMENT PLAN:. TIME SPENT: 20 minutes. Vital Signs Vital Signs Date Time Temp Pulse Resp B/P (MAP) Pulse Ox O2 Delivery O2 Flow Rate FiO2 12/14/20 09:00 82 138/65 12/13/20 17:48 99.8 18 12/12/20 20:18 95 Room Air Current Medications Current Medications Medications (Trade) Dose Ordered Sig/Marisa Route PRN Reason Start Time Stop Time Status Last Admin Dose Admin Acetaminophen (Tylenol Tab) 650 mg Q6HP PRN PO HEADACHE or MILD DISCOMFORT 11/11/20 19:40 12/06/20 17:06 Al Hydrox/Mg Hydrox/Simethicone (Mylanta) 30 ml Q4HP PRN PO HEARTBURN/INDIGESTION 11/11/20 19:40 Amlodipine Besylate (Norvasc) 5 mg DAILY PO 11/12/20 09:00 12/11/20 10:31 Benztropine Mesylate (Cogentin) 1 mg BID PO 12/13/20 09:00 12/13/20 22:03 Ceftriaxone Sodium (Rocephin) 1 gm Q24H IM 12/08/20 18:00 12/15/20 17:59 12/13/20 18:20 Cephalexin Monohydrate (Keflex) 500 mg Q6H PO 12/04/20 18:00 12/08/20 18:01 DC 12/05/20 12:51 Diphenhydramine HCl (Benadryl) 50 mg Q6HP PRN PO AGITATION 12/03/20 12:25 12/05/20 01:28 Divalproex Sodium (Depakote Sprinkles) 500 mg BID PO 11/13/20 09:00 11/25/20 11:02 DC 11/25/20 09:30 Divalproex Sodium (Depakote Er) 250 mg DAILY PO 11/26/20 09:00 12/02/20 07:14 DC 12/01/20 09:55 Divalproex Sodium (Depakote Er) 500 mg BID PO 11/13/20 09:00 11/13/20 09:00 DC Divalproex Sodium (Depakote Er) 500 mg DAILY PO 12/04/20 09:00 12/06/20 10:27 DC 12/05/20 12:43 Divalproex Sodium (Depakote Er) 500 mg DAILY PO 12/02/20 09:00 12/04/20 08:53 DC Divalproex Sodium (Depakote Er) 500 mg QHS PO 11/25/20 21:00 11/30/20 22:07 DC 11/29/20 21:19 Divalproex Sodium (Depakote Er) 500 mg QHS PO 11/30/20 22:10 12/06/20 10:27 DC 12/04/20 22:00 Docusate Sodium (Colace) 100 mg BID PO 11/12/20 09:00 12/11/20 10:32 Haloperidol (Haldol) 5 mg Q6HP PRN PO AGITATION 12/03/20 12:25 12/08/20 18:31 Ketorolac Tromethamine (ToRADol) 30 mg BIDP PRN IM PAIN LEVEL 6-10 12/14/20 09:20 Ketorolac Tromethamine (ToRADol) 30 mg Q6H PRN IM PAIN LEVEL 5-10 12/14/20 09:45 12/14/20 09:47 DC Levetiracetam (Keppra Oral Solution) 500 mg BID PO 11/12/20 09:00 12/11/20 10:30 Levothyroxine Sodium (Synthroid) 100 mcg DAILY@06 PO 11/12/20 06:00 12/05/20 05:11 Lorazepam (Ativan) 0.5 mg BID PO 11/17/20 09:00 11/18/20 08:31 DC 11/17/20 19:56 Lorazepam (Ativan) 1 mg BID PO 11/14/20 09:00 11/17/20 07:27 DC 11/16/20 20:33 Lorazepam (Ativan) 1 mg QHS PO 12/01/20 21:00 12/06/20 10:27 DC 12/04/20 21:59 Lorazepam (Ativan) 1 mg TID PO 12/06/20 09:00 12/12/20 08:49 DC 12/11/20 10:31 Magnesium Hydroxide (Milk Of Magnesia) 30 ml DAILYPRN PRN PO CONSTIPATION 11/11/20 19:40 Miscellaneous (Unresolved Clarification Entry) SEE LABEL COMMENTS DAILY XX 12/11/20 09:00 12/13/20 09:04 DC Oxycodone/ Acetaminophen (Percocet 5mg/ 325mg Tablet) 1 tab Q6HP PRN PO MODERATE PAIN (PS 5-7) 12/13/20 16:10 Pantoprazole Sodium (Protonix) 40 mg DAILY PO 11/12/20 09:00 12/11/20 10:33 Polyethylene Glycol (Miralax) 1 pkt DAILY PO 11/12/20 09:00 12/05/20 12:42 Quetiapine Fumarate (SEROquel) 100 mg QHS PO 11/13/20 21:00 11/18/20 08:31 DC 11/17/20 19:56 Quetiapine Fumarate (SEROquel) 100 mg QHS PO 11/23/20 21:00 12/01/20 09:14 DC 11/29/20 21:19 Quetiapine Fumarate (SEROquel) 200 mg QHS PO 12/01/20 21:00 12/06/20 20:48 Risperidone (RisperDAL Consta) 37.5 mg Q14D@09 IM 12/07/20 09:00 12/07/20 10:54 DC Risperidone (RisperDAL Consta) 37.5 mg Q14D@09 IM 12/08/20 09:00 12/08/20 10:57 Risperidone (RisperDAL LIQUID) 4 mg QHS PO 11/12/20 21:00 11/14/20 08:57 DC 11/12/20 21:48 Risperidone (RisperDAL) 2 mg BID PO 11/14/20 09:00 11/21/20 09:34 DC 11/20/20 21:02 Risperidone (RisperDAL) 2 mg QHS PO 11/21/20 21:00 11/23/20 08:57 DC 11/22/20 20:41 Risperidone (RisperDAL) 2 mg QHS PO 12/13/20 21:00 Risperidone (RisperDAL) 3 mg QHS PO 11/23/20 21:00 11/28/20 09:00 DC 11/27/20 21:58 Risperidone (RisperDAL) 4 mg DAILY@1700 PO 12/07/20 17:00 12/13/20 09:03 DC Risperidone (RisperDAL) 4 mg QHS PO 11/28/20 21:00 12/06/20 10:27 DC 12/04/20 22:01 Risperidone (RisperDAL) 4 mg QPM PO 12/06/20 17:00 12/07/20 09:42 DC 12/06/20 20:49 Sodium Chloride ([place] Saline Nasal Gel) APPLY SMALL RADHIKA... Q4HP PRN NA NASAL DRYNESS 12/02/20 10:50 Trazodone HCl (Desyrel) 50 mg QHSP PRN PO INSOMNIA 11/11/20 19:40 12/01/20 21:40 Valproic Acid (Depakene Solution) 500 mg 0800,1600 PO 12/06/20 08:00 12/11/20 10:37 Valproic Acid (Depakene) 500 mg BID PO 12/06/20 09:00 Cancel Allergies Coded Allergies: Sulfa (Sulfonamide Antibiotics) (Verified Allergy, Unknown, 01/21/19) aspirin (Verified Allergy, Unknown, 01/21/19) MARISOL HURD M.D. Dec 14, 2020 11:57
[2020-12-14] MEDS: KETOROLAC 30 MG/ML 1ML VIAL IM PRN (12:12)
[2020-12-14 17:07] VITALS: BP 136/63
[2020-12-14] MEDS: cefTRIAXone SOD 1GM VIAL (J0696 PER 250MG) IM SCH (17:36)
[2020-12-14] MEDS: QUEtiapine FUMARATE 200 MG TAB PO SCH (20:20)
[2020-12-14] MEDS: risperiDONE 2 MG TAB PO SCH (20:20)
[2020-12-15] MEDS: LEVOTHYROXINE 100MCG TABLET (0.1MG) PO SCH (06:00)
[2020-12-15] MEDS ORDERED: diphenhydrAMINE 50MG/ML VIAL (J1200) IM ONE (07:55)
[2020-12-15] MEDS: VALPROIC ACID 250MG/5ML SOL ORAL SYRINGE *DRAW UP EXACT DOSE PO SCH ×2 (08:00→16:00)
[2020-12-15] MEDS ORDERED: diphenhydrAMINE 50MG/ML VIAL (J1200) IM SCH (08:00)
[2020-12-15] MEDS ORDERED: HALOPERIDOL 5MG/ML VIAL (J1630 PER 1) IM ONE (08:15)
[2020-12-15] MEDS: BENZTROPINE 1 MG TAB PO SCH ×2 (08:36→21:00)
[2020-12-15] MEDS: DOCUSATE SODIUM 100MG CAPSULE PO SCH ×2 (08:37→21:00)
[2020-12-15] MEDS: levETIRAcetam ORAL SOLUTION 500 MG/5 ML UDC PO SCH ×2 (08:37→21:00)
[2020-12-15] MEDS: MIRALAX *UNIT DOSE* 17GM PACKET PO SCH (08:37)
[2020-12-15] MEDS: amLODIPine 5 MG TAB PO SCH (09:00)
[2020-12-15] MEDS: PANTOPRAZOLE 40MG TAB (PROTONIX) PO SCH (09:00)
--- NOTE | 2020-12-15 09:06 | MHIPNPDOC ---
[facility] Progress Note Progress Note DATE OF SERVICE: 12/15/20 The patient is resistant to take any oral medications including liquid Depakote. She is more agitated now and did not sleep last night and this morning she is screaming at times and very labile. She denies being in pain by nodding her head but otherwise unable to give any coherent response and did not sleep last night at all. She has been frequently asking for injection and has always cooperated. Due to her continued agitation we will give her IM dose of Haldol and Benadryl to control her sedation. HISTORY: . VITAL SIGNS: See below. NEW TEST RESULTS:. CURRENT MEDICATIONS: See below. MENTAL STATUS EXAMINATION: Patient is a 70-year old female, who is in no acute physical distress but is labile and agitated. Speech: Is fragmented and incomprehensible. Language skills are poor. Thought processes including: Disorganized. Thought content: Difficult to evaluate. Abstract reasoning, and computation: Poor. Description of associations: Disorganized. Description of abnormal or psychotic thoughts: Frequently agitated. Judgment: Poor. Insight: poor]. Orientation: Oriented to person and place. Recent and remote memory: Difficult to evaluate. Attention span and concentration:. Language:. Fund of knowledge:. Mood: Labile. Affect: Agitated. DIAGNOSES: 1.. Schizoaffective disorder 2.. 3.. ASSESSMENT: Not been able to take any oral medicine and frequently agitated MANAGEMENT PLAN: Will give injection of the Haldol and Benadryl. TIME SPENT: 20 minutes. Vital Signs Vital Signs Date Time Temp Pulse Resp B/P (MAP) Pulse Ox O2 Delivery O2 Flow Rate FiO2 12/14/20 17:07 99.2 87 16 136/63 (87) 94 Room Air Laboratory Data 24H Labs Laboratory Tests 2 12/15/20 08:39: CBC/BMP Current Medications Current Medications Medications (Trade) Dose Ordered Sig/Marisa Route PRN Reason Start Time Stop Time Status Last Admin Dose Admin Acetaminophen (Tylenol Tab) 650 mg Q6HP PRN PO HEADACHE or MILD DISCOMFORT 11/11/20 19:40 12/06/20 17:06 Al Hydrox/Mg Hydrox/Simethicone (Mylanta) 30 ml Q4HP PRN PO HEARTBURN/INDIGESTION 11/11/20 19:40 Amlodipine Besylate (Norvasc) 5 mg DAILY PO 11/12/20 09:00 12/11/20 10:31 Benztropine Mesylate (Cogentin) 1 mg BID PO 12/13/20 09:00 12/13/20 22:03 Ceftriaxone Sodium (Rocephin) 1 gm Q24H IM 12/08/20 18:00 12/15/20 17:59 12/14/20 17:36 Cephalexin Monohydrate (Keflex) 500 mg Q6H PO 12/04/20 18:00 12/08/20 18:01 DC 12/05/20 12:51 Diphenhydramine HCl (Benadryl) 50 mg Q6HP PRN PO AGITATION 12/03/20 12:25 12/05/20 01:28 Divalproex Sodium (Depakote Sprinkles) 500 mg BID PO 11/13/20 09:00 11/25/20 11:02 DC 11/25/20 09:30 Divalproex Sodium (Depakote Er) 250 mg DAILY PO 11/26/20 09:00 12/02/20 07:14 DC 12/01/20 09:55 Divalproex Sodium (Depakote Er) 500 mg BID PO 11/13/20 09:00 11/13/20 09:00 DC Divalproex Sodium (Depakote Er) 500 mg DAILY PO 12/04/20 09:00 12/06/20 10:27 DC 12/05/20 12:43 Divalproex Sodium (Depakote Er) 500 mg DAILY PO 12/02/20 09:00 12/04/20 08:53 DC Divalproex Sodium (Depakote Er) 500 mg QHS PO 11/25/20 21:00 11/30/20 22:07 DC 11/29/20 21:19 Divalproex Sodium (Depakote Er) 500 mg QHS PO 11/30/20 22:10 12/06/20 10:27 DC 12/04/20 22:00 Docusate Sodium (Colace) 100 mg BID PO 11/12/20 09:00 12/11/20 10:32 Haloperidol (Haldol) 5 mg Q6HP PRN PO AGITATION 12/03/20 12:25 12/08/20 18:31 Ketorolac Tromethamine (ToRADol) 30 mg BIDP PRN IM PAIN LEVEL 6-10 7/21/21 09:20 12/14/20 12:12 Ketorolac Tromethamine (ToRADol) 30 mg Q6H PRN IM PAIN LEVEL 5-10 12/14/20 09:45 12/14/20 09:47 DC Levetiracetam (Keppra Oral Solution) 500 mg BID PO 11/12/20 09:00 12/11/20 10:30 Levothyroxine Sodium (Synthroid) 100 mcg DAILY@06 PO 11/12/20 06:00 12/05/20 05:11 Lorazepam (Ativan) 0.5 mg BID PO 11/17/20 09:00 11/18/20 08:31 DC 11/17/20 19:56 Lorazepam (Ativan) 1 mg BID PO 11/14/20 09:00 11/17/20 07:27 DC 11/16/20 20:33 Lorazepam (Ativan) 1 mg QHS PO 12/01/20 21:00 12/06/20 10:27 DC 12/04/20 21:59 Lorazepam (Ativan) 1 mg TID PO 12/06/20 09:00 12/12/20 08:49 DC 12/11/20 10:31 Magnesium Hydroxide (Milk Of Magnesia) 30 ml DAILYPRN PRN PO CONSTIPATION 11/11/20 19:40 Miscellaneous (Unresolved Clarification Entry) SEE LABEL COMMENTS DAILY XX 12/11/20 09:00 12/13/20 09:04 DC Oxycodone/ Acetaminophen (Percocet 5mg/ 325mg Tablet) 1 tab Q6HP PRN PO MODERATE PAIN (PS 5-7) 12/13/20 16:10 Pantoprazole Sodium (Protonix) 40 mg DAILY PO 11/12/20 09:00 12/11/20 10:33 Polyethylene Glycol (Miralax) 1 pkt DAILY PO 11/12/20 09:00 12/05/20 12:42 Quetiapine Fumarate (SEROquel) 100 mg QHS PO 11/13/20 21:00 11/18/20 08:31 DC 11/17/20 19:56 Quetiapine Fumarate (SEROquel) 100 mg QHS PO 11/23/20 21:00 12/01/20 09:14 DC 11/29/20 21:19 Quetiapine Fumarate (SEROquel) 200 mg QHS PO 12/01/20 21:00 12/06/20 20:48 Risperidone (RisperDAL Consta) 37.5 mg Q14D@09 IM 12/07/20 09:00 12/07/20 10:54 DC Risperidone (RisperDAL Consta) 37.5 mg Q14D@09 IM 12/08/20 09:00 12/08/20 10:57 Risperidone (RisperDAL LIQUID) 4 mg QHS PO 11/12/20 21:00 11/14/20 08:57 DC 11/12/20 21:48 Risperidone (RisperDAL) 2 mg BID PO 11/14/20 09:00 11/21/20 09:34 DC 11/20/20 21:02 Risperidone (RisperDAL) 2 mg QHS PO 11/21/20 21:00 11/23/20 08:57 DC 11/22/20 20:41 Risperidone (RisperDAL) 2 mg QHS PO 12/13/20 21:00 Risperidone (RisperDAL) 3 mg QHS PO 11/23/20 21:00 11/28/20 09:00 DC 11/27/20 21:58 Risperidone (RisperDAL) 4 mg DAILY@1700 PO 12/07/20 17:00 12/13/20 09:03 DC Risperidone (RisperDAL) 4 mg QHS PO 11/28/20 21:00 12/06/20 10:27 DC 12/04/20 22:01 Risperidone (RisperDAL) 4 mg QPM PO 12/06/20 17:00 12/07/20 09:42 DC 12/06/20 20:49 Sodium Chloride ([place] Saline Nasal Gel) APPLY SMALL RADHIKA... Q4HP PRN NA NASAL DRYNESS 12/02/20 10:50 Trazodone HCl (Desyrel) 50 mg QHSP PRN PO INSOMNIA 11/11/20 19:40 12/01/20 21:40 Valproic Acid (Depakene Solution) 500 mg 0800,1600 PO 12/06/20 08:00 12/11/20 10:37 Valproic Acid (Depakene) 500 mg BID PO 12/06/20 09:00 Cancel Allergies Coded Allergies: Sulfa (Sulfonamide Antibiotics) (Verified Allergy, Unknown, 01/21/19) aspirin (Verified Allergy, Unknown, 01/21/19) MARISOL HURD M.D. Dec 15, 2020 09:06
[2020-12-15 09:25] LABS: BLOOD UREA NITROGEN 20 MG/DL (7-18); CALCIUM LEVEL 8.3 MG/DL (8.8-10.2); CARBON DIOXIDE LEVEL 25 MEQ/L (21-32); CHLORIDE LEVEL 107 MEQ/L (98-107); CREATININE FOR GFR 0.93 MG/DL (0.55-1.30); GLOMERULAR FILTRATION RATE > 60.0 (>45); GLUCOSE, FASTING 102 MG/DL (70-100); POTASSIUM SERUM 4.1 MEQ/L (3.5-5.1); SODIUM LEVEL 142 MEQ/L (136-145)
[2020-12-15 18:00] VITALS: BP 159/71
[2020-12-15] MEDS: risperiDONE 2 MG TAB PO SCH (21:00)
[2020-12-15] MEDS: QUEtiapine FUMARATE 200 MG TAB PO SCH (21:00)
[2020-12-15] MEDS: diphenhydrAMINE 50MG/ML VIAL (J1200) IM SCH (22:04)
[2020-12-15] MEDS: HALOPERIDOL 5MG/ML VIAL (J1630 PER 1) IM SCH (22:04)
[2020-12-16] MEDS: LEVOTHYROXINE 100MCG TABLET (0.1MG) PO SCH (05:47)
[2020-12-16] MEDS: VALPROIC ACID 250MG/5ML SOL ORAL SYRINGE *DRAW UP EXACT DOSE PO SCH ×2 (08:00→15:15)
[2020-12-16] MEDS: diphenhydrAMINE 50MG/ML VIAL (J1200) IM SCH ×3 (08:00→21:17)
[2020-12-16] MEDS: HALOPERIDOL 5MG/ML VIAL (J1630 PER 1) IM SCH ×3 (08:00→21:17)
--- NOTE | 2020-12-16 08:57 | MHIPNPDOC ---
[facility] Progress Note Progress Note DATE OF SERVICE: 12/16/20 Patient had 2 doses of Haldol and Benadryl by injection yesterday and responded with marked reduction in agitation and improved sleep. She has been sleeping since midnight and is currently sleeping soundly resting and in no acute distress. She was sent for PT and OT RT evaluation during the day yesterday but was not very cooperative and somewhat belligerent not a candidate for active PT at this time. She has again refused most of her oral medications. Due to the concern with possible side effect from Haldol I will give her just nighttime dose of Haldol and Benadryl by injection and encourage her to cooperate with oral medications. HISTORY:. VITAL SIGNS: See below. NEW TEST RESULTS:. CURRENT MEDICATIONS: See below. MENTAL STATUS EXAMINATION: Patient is a 70-year old female, who is asleep. Speech: Is not able to evaluate at this time but appears at her baseline with significant reduction in psychomotor agitation. Language skills are. Thought processes including:. Thought content:. Abstract reasoning, and computation:. Description of associations:. Description of abnormal or psychotic thoughts:. Judgment:. Insight: Very limited, good, fair. poor. Orientation:. Recent and remote memory:. Attention span and concentration:. Language:. Fund of knowledge:. Mood:. Affect:. DIAGNOSES: 1.. Schizoaffective disorder 2.. 3.. ASSESSMENT: Not as agitated with Haldol and Benadryl and does not appear to be in any acute distress but is still not taking oral medications MANAGEMENT PLAN: Continue with the supportive therapy will give another dose at nighttime and continue to encourage her to cooperate with oral medications. TIME SPENT: 50 minutes. Vital Signs Vital Signs Date Time Temp Pulse Resp B/P (MAP) Pulse Ox O2 Delivery O2 Flow Rate FiO2 12/15/20 18:00 98.3 81 18 159/71 (100) 97 Room Air Current Medications Current Medications Medications (Trade) Dose Ordered Sig/Marisa Route PRN Reason Start Time Stop Time Status Last Admin Dose Admin Acetaminophen (Tylenol Tab) 650 mg Q6HP PRN PO HEADACHE or MILD DISCOMFORT 11/11/20 19:40 12/06/20 17:06 Al Hydrox/Mg Hydrox/Simethicone (Mylanta) 30 ml Q4HP PRN PO HEARTBURN/INDIGESTION 11/11/20 19:40 Amlodipine Besylate (Norvasc) 5 mg DAILY PO 11/12/20 09:00 12/11/20 10:31 Benztropine Mesylate (Cogentin) 1 mg BID PO 12/13/20 09:00 12/13/20 22:03 Ceftriaxone Sodium (Rocephin) 1 gm Q24H IM 12/08/20 18:00 12/15/20 17:59 DC 12/14/20 17:36 Cephalexin Monohydrate (Keflex) 500 mg Q6H PO 12/04/20 18:00 12/08/20 18:01 DC 12/05/20 12:51 Diphenhydramine HCl (Benadryl) 50 mg BID@0800,1999 IM 12/15/20 08:00 12/15/20 10:58 DC Diphenhydramine HCl (Benadryl) 50 mg BID@0800,1999 IM 12/15/20 20:00 12/15/20 22:04 Diphenhydramine HCl (Benadryl) 50 mg Q6HP PRN PO AGITATION 12/03/20 12:25 12/05/20 01:28 Divalproex Sodium (Depakote Sprinkles) 500 mg BID PO 11/13/20 09:00 11/25/20 11:02 DC 11/25/20 09:30 Divalproex Sodium (Depakote Er) 250 mg DAILY PO 11/26/20 09:00 12/02/20 07:14 DC 12/01/20 09:55 Divalproex Sodium (Depakote Er) 500 mg BID PO 11/13/20 09:00 11/13/20 09:00 DC Divalproex Sodium (Depakote Er) 500 mg DAILY PO 12/04/20 09:00 12/06/20 10:27 DC 12/05/20 12:43 Divalproex Sodium (Depakote Er) 500 mg DAILY PO 12/02/20 09:00 12/04/20 08:53 DC Divalproex Sodium (Depakote Er) 500 mg QHS PO 11/25/20 21:00 11/30/20 22:07 DC 11/29/20 21:19 Divalproex Sodium (Depakote Er) 500 mg QHS PO 11/30/20 22:10 12/06/20 10:27 DC 12/04/20 22:00 Docusate Sodium (Colace) 100 mg BID PO 11/12/20 09:00 12/11/20 10:32 Haloperidol (Haldol) 5 mg BID@0800,2000 IM 12/15/20 20:00 12/15/20 22:04 Haloperidol (Haldol) 5 mg Q6HP PRN PO AGITATION 12/03/20 12:25 12/08/20 18:31 Ketorolac Tromethamine (ToRADol) 30 mg BIDP PRN IM PAIN LEVEL 6-10 12/14/20 09:20 12/14/20 12:12 Ketorolac Tromethamine (ToRADol) 30 mg Q6H PRN IM PAIN LEVEL 5-10 12/14/20 09:45 12/14/20 09:47 DC Levetiracetam (Keppra Oral Solution) 500 mg BID PO 11/12/20 09:00 12/11/20 10:30 Levothyroxine Sodium (Synthroid) 100 mcg DAILY@06 PO 11/12/20 06:00 12/05/20 05:11 Lorazepam (Ativan) 0.5 mg BID PO 11/17/20 09:00 11/18/20 08:31 DC 11/17/20 19:56 Lorazepam (Ativan) 1 mg BID PO 11/14/20 09:00 11/17/20 07:27 DC 11/16/20 20:33 Lorazepam (Ativan) 1 mg QHS PO 12/01/20 21:00 12/06/20 10:27 DC 12/04/20 21:59 Lorazepam (Ativan) 1 mg TID PO 12/06/20 09:00 12/12/20 08:49 DC 12/11/20 10:31 Magnesium Hydroxide (Milk Of Magnesia) 30 ml DAILYPRN PRN PO CONSTIPATION 11/11/20 19:40 Miscellaneous (Unresolved Clarification Entry) SEE LABEL COMMENTS DAILY XX 12/11/20 09:00 12/13/20 09:04 DC Nystatin (Mycostatin Powder, Nystop) APPLY TO AREAS OF RASH BIDP PRN TOP RASH 12/15/20 18:45 Oxycodone/ Acetaminophen (Percocet 5mg/ 325mg Tablet) 1 tab Q6HP PRN PO MODERATE PAIN (PS 5-7) 12/13/20 16:10 Pantoprazole Sodium (Protonix) 40 mg DAILY PO 11/12/20 09:00 12/11/20 10:33 Polyethylene Glycol (Miralax) 1 pkt DAILY PO 11/12/20 09:00 12/05/20 12:42 Quetiapine Fumarate (SEROquel) 100 mg QHS PO 11/13/20 21:00 11/18/20 08:31 DC 11/17/20 19:56 Quetiapine Fumarate (SEROquel) 100 mg QHS PO 11/23/20 21:00 12/01/20 09:14 DC 11/29/20 21:19 Quetiapine Fumarate (SEROquel) 200 mg QHS PO 12/01/20 21:00 12/06/20 20:48 Risperidone (RisperDAL Consta) 37.5 mg Q14D@09 IM 12/07/20 09:00 12/07/20 10:54 DC Risperidone (RisperDAL Consta) 37.5 mg Q14D@09 IM 12/08/20 09:00 12/08/20 10:57 Risperidone (RisperDAL LIQUID) 4 mg QHS PO 11/12/20 21:00 11/14/20 08:57 DC 11/12/20 21:48 Risperidone (RisperDAL) 2 mg BID PO 11/14/20 09:00 11/21/20 09:34 DC 11/20/20 21:02 Risperidone (RisperDAL) 2 mg QHS PO 11/21/20 21:00 11/23/20 08:57 DC 11/22/20 20:41 Risperidone (RisperDAL) 2 mg QHS PO 12/13/20 21:00 Risperidone (RisperDAL) 3 mg QHS PO 11/23/20 21:00 11/28/20 09:00 DC 11/27/20 21:58 Risperidone (RisperDAL) 4 mg DAILY@1700 PO 12/07/20 17:00 12/13/20 09:03 DC Risperidone (RisperDAL) 4 mg QHS PO 11/28/20 21:00 12/06/20 10:27 DC 12/04/20 22:01 Risperidone (RisperDAL) 4 mg QPM PO 12/06/20 17:00 12/07/20 09:42 DC 12/06/20 20:49 Sodium Chloride ([place] Saline Nasal Gel) APPLY SMALL RADHIKA... Q4HP PRN NA NASAL DRYNESS 12/02/20 10:50 Trazodone HCl (Desyrel) 50 mg QHSP PRN PO INSOMNIA 11/11/20 19:40 12/01/20 21:40 Valproic Acid (Depakene Solution) 500 mg 0800,1600 PO 12/06/20 08:00 12/11/20 10:37 Valproic Acid (Depakene) 500 mg BID PO 12/06/20 09:00 Cancel Allergies Coded Allergies: Sulfa (Sulfonamide Antibiotics) (Verified Allergy, Unknown, 01/21/19) aspirin (Verified Allergy, Unknown, 01/21/19) MARISOL HURD M.D. Dec 16, 2020 08:57
[2020-12-16] MEDS: BENZTROPINE 1 MG TAB PO SCH ×2 (09:00→21:00)
[2020-12-16] MEDS: levETIRAcetam ORAL SOLUTION 500 MG/5 ML UDC PO SCH ×2 (09:00→21:00)
[2020-12-16] MEDS: DOCUSATE SODIUM 100MG CAPSULE PO SCH ×2 (09:00→21:00)
[2020-12-16] MEDS: PANTOPRAZOLE 40MG TAB (PROTONIX) PO SCH (09:00)
[2020-12-16] MEDS: MIRALAX *UNIT DOSE* 17GM PACKET PO SCH (09:00)
[2020-12-16] MEDS: amLODIPine 5 MG TAB PO SCH (09:00)
[2020-12-16] MEDS ORDERED: diphenhydrAMINE 50MG/ML VIAL (J1200) IM SCH (10:45)
[2020-12-16] MEDS ORDERED: HALOPERIDOL 5MG/ML VIAL (J1630 PER 1) IM SCH (10:45)
[2020-12-16] MEDS: risperiDONE 2 MG TAB PO SCH (21:00)
[2020-12-16] MEDS: QUEtiapine FUMARATE 200 MG TAB PO SCH (21:00)
[2020-12-17] MEDS: LEVOTHYROXINE 100MCG TABLET (0.1MG) PO SCH (05:05)
[2020-12-17] MEDS: VALPROIC ACID 250MG/5ML SOL ORAL SYRINGE *DRAW UP EXACT DOSE PO SCH ×2 (08:00→16:05)
[2020-12-17] MEDS: BENZTROPINE 1 MG TAB PO SCH ×3 (08:27→21:00)
[2020-12-17] MEDS: DOCUSATE SODIUM 100MG CAPSULE PO SCH ×3 (08:27→21:00)
[2020-12-17] MEDS: levETIRAcetam ORAL SOLUTION 500 MG/5 ML UDC PO SCH ×4 (08:27→21:00)
[2020-12-17] MEDS: MIRALAX *UNIT DOSE* 17GM PACKET PO SCH ×2 (08:28→09:38)
[2020-12-17] MEDS: PANTOPRAZOLE 40MG TAB (PROTONIX) PO SCH ×2 (08:28→09:38)
[2020-12-17] MEDS: amLODIPine 5 MG TAB PO SCH ×2 (08:28→09:38)
[2020-12-17] MEDS: KETOROLAC 30 MG/ML 1ML VIAL IM PRN (08:45)
[2020-12-17] MEDS: diphenhydrAMINE 50MG CAP PO PRN (13:02)
[2020-12-17] MEDS: haloperidoL 5 MG TAB PO PRN (13:02)
[2020-12-17] MEDS ORDERED: LORazepam 2 MG/ML VIAL IM STA (15:43)
[2020-12-17 16:27] VITALS: BP 145/72
[2020-12-17] MEDS: QUEtiapine FUMARATE 200 MG TAB PO SCH (21:00)
[2020-12-17] MEDS: HALOPERIDOL 5MG/ML VIAL (J1630 PER 1) IM SCH (21:00)
[2020-12-17] MEDS: risperiDONE 2 MG TAB PO SCH (21:00)
[2020-12-17] MEDS: diphenhydrAMINE 50MG/ML VIAL (J1200) IM SCH (21:00)
[2020-12-18] MEDS: LEVOTHYROXINE 100MCG TABLET (0.1MG) PO SCH (06:00)
[2020-12-18] MEDS: VALPROIC ACID 250MG/5ML SOL ORAL SYRINGE *DRAW UP EXACT DOSE PO SCH ×2 (08:44→16:37)
[2020-12-18] MEDS: BENZTROPINE 1 MG TAB PO SCH ×2 (08:44→19:59)
[2020-12-18] MEDS: DOCUSATE SODIUM 100MG CAPSULE PO SCH ×2 (08:44→19:58)
[2020-12-18] MEDS: levETIRAcetam ORAL SOLUTION 500 MG/5 ML UDC PO SCH ×2 (08:44→20:02)
[2020-12-18] MEDS: amLODIPine 5 MG TAB PO SCH (08:45)
[2020-12-18] MEDS: haloperidoL 5 MG TAB PO PRN ×2 (08:45→19:59)
[2020-12-18] MEDS: PANTOPRAZOLE 40MG TAB (PROTONIX) PO SCH (08:45)
[2020-12-18] MEDS: diphenhydrAMINE 50MG CAP PO PRN ×2 (08:45→19:59)
[2020-12-18] MEDS: MIRALAX *UNIT DOSE* 17GM PACKET PO SCH (09:00)
[2020-12-18] MEDS ORDERED: PILL CUTTER 1 EACH XX PRN (09:40)
[2020-12-18] MEDS: PERCOCET 5MG/325MG TAB PO PRN ×2 (10:10→19:59)
[2020-12-18] MEDS: risperiDONE 2 MG TAB PO SCH (19:59)
[2020-12-18] MEDS: QUEtiapine FUMARATE 200 MG TAB PO SCH (19:59)
[2020-12-18] MEDS: traZODone 50 MG TAB PO PRN (19:59)
[2020-12-18] MEDS: HALOPERIDOL 5MG/ML VIAL (J1630 PER 1) IM SCH (20:00)
[2020-12-18] MEDS: diphenhydrAMINE 50MG/ML VIAL (J1200) IM SCH (20:00)
[2020-12-19] MEDS: LEVOTHYROXINE 100MCG TABLET (0.1MG) PO SCH ×2 (05:30→07:00)
[2020-12-19] MEDS ORDERED: diphenhydrAMINE 50MG/ML VIAL (J1200) IM STA (07:40)
[2020-12-19] MEDS ORDERED: HALOPERIDOL 5MG/ML VIAL (J1630 PER 1) IM STA (07:40)
[2020-12-19] MEDS: VALPROIC ACID 250MG/5ML SOL ORAL SYRINGE *DRAW UP EXACT DOSE PO SCH ×2 (08:28→17:47)
[2020-12-19] MEDS: levETIRAcetam ORAL SOLUTION 500 MG/5 ML UDC PO SCH ×2 (08:29→21:55)
[2020-12-19] MEDS: PANTOPRAZOLE 40MG TAB (PROTONIX) PO SCH (08:30)
[2020-12-19] MEDS: DOCUSATE SODIUM 100MG CAPSULE PO SCH ×2 (08:30→21:54)
[2020-12-19] MEDS: amLODIPine 5 MG TAB PO SCH (08:30)
[2020-12-19] MEDS: BENZTROPINE 1 MG TAB PO SCH ×2 (08:31→21:54)
[2020-12-19] MEDS: MIRALAX *UNIT DOSE* 17GM PACKET PO SCH (08:32)
--- NOTE | 2020-12-19 08:56 | MHIPNPDOC ---
[facility] Progress Note Progress Note DATE OF SERVICE: 12/19/20 The patient continued to have a frequent episode of agitation and not been sleeping and mostly unable to cooperate with oral medication. She is again screaming at times pounding on the table and mumbling and quiet fragmented. She is asking for injections at times with a finger pointing upper arm and has not shown significant reduction in her agitation and slept much better when she was given Haldol and Benadryl injection. Since the patient is either unable or actively resisting to oral medications but is fully cooperating and asking for injectable medicine we will utilize Haldol and Benadryl injection twice a day to control her agitation. She is not showing any rigidity or tremor and appears to tolerate without any side effect. HISTORY:. VITAL SIGNS: See below. NEW TEST RESULTS:. CURRENT MEDICATIONS: See below. MENTAL STATUS EXAMINATION: Patient is a 70-year old female, who is quite anxious and agitated. Speech: Is fragmented. Language skills are poor. Thought processes including: Unable to carry on rational conversation. Thought content: Difficult to evaluate. Abstract reasoning, and computation: Poor. Description of associations: Disorganized. Description of abnormal or psychotic thoughts: Unable to evaluate but appears irritable and disorganized. Judgment: Poor. Insight: Poor. Orientation: Difficult to evaluate. Recent and remote memory: Unable to evaluate. Attention span and concentration: Poor. Language:. Fund of knowledge:. Mood: Irritable. Affect: Agitated labile. DIAGNOSES: 1.. Schizoaffective disorder 2.. 3.. ASSESSMENT: No significant improvement MANAGEMENT PLAN: Try to stabilize with the medication and I would like to ask for second opinion from another psychiatrist in terms of the medication management. TIME SPENT: 20 minutes. Vital Signs Vital Signs Date Time Temp Pulse Resp B/P (MAP) Pulse Ox O2 Delivery O2 Flow Rate FiO2 12/19/20 08:30 72 138/66 12/18/20 20:29 18 12/18/20 10:10 Room Air 12/17/20 16:27 97.9 12/15/20 18:00 97 Current Medications Current Medications Medications (Trade) Dose Ordered Sig/Marisa Route PRN Reason Start Time Stop Time Status Last Admin Dose Admin Acetaminophen (Tylenol Tab) 650 mg Q6HP PRN PO HEADACHE or MILD DISCOMFORT 11/11/20 19:40 12/06/20 17:06 Al Hydrox/Mg Hydrox/Simethicone (Mylanta) 30 ml Q4HP PRN PO HEARTBURN/INDIGESTION 11/11/20 19:40 Amlodipine Besylate (Norvasc) 5 mg DAILY PO 11/12/20 09:00 12/19/20 08:30 Benztropine Mesylate (Cogentin) 1 mg BID PO 12/13/20 09:00 12/19/20 08:31 Ceftriaxone Sodium (Rocephin) 1 gm Q24H IM 12/08/20 18:00 12/15/20 17:59 DC 12/14/20 17:36 Cephalexin Monohydrate (Keflex) 500 mg Q6H PO 12/04/20 18:00 12/08/20 18:01 DC 12/05/20 12:51 Diphenhydramine HCl (Benadryl) 50 mg BID@799,1999 IM 12/15/20 08:00 12/15/20 10:58 DC Diphenhydramine HCl (Benadryl) 50 mg BID@799,1999 IM 12/15/20 20:00 12/16/20 10:47 DC 12/15/20 22:04 Diphenhydramine HCl (Benadryl) 50 mg Q6HP PRN PO AGITATION 12/03/20 12:25 12/18/20 19:59 Diphenhydramine HCl (Benadryl) 50 mg QHS IM 12/16/20 10:45 12/16/20 10:50 DC Diphenhydramine HCl (Benadryl) 50 mg QHS IM 12/16/20 21:00 12/16/20 21:17 Diphenhydramine HCl (Benadryl) 50 mg STAT STAT IM 12/19/20 07:40 12/19/20 07:42 DC 12/19/20 07:56 Divalproex Sodium (Depakote Sprinkles) 500 mg BID PO 11/13/20 09:00 11/25/20 11:02 DC 11/25/20 09:30 Divalproex Sodium (Depakote Er) 250 mg DAILY PO 11/26/20 09:00 12/02/20 07:14 DC 12/01/20 09:55 Divalproex Sodium (Depakote Er) 500 mg BID PO 11/13/20 09:00 11/13/20 09:00 DC Divalproex Sodium (Depakote Er) 500 mg DAILY PO 12/04/20 09:00 12/06/20 10:27 DC 12/05/20 12:43 Divalproex Sodium (Depakote Er) 500 mg DAILY PO 12/02/20 09:00 12/04/20 08:53 DC Divalproex Sodium (Depakote Er) 500 mg QHS PO 11/25/20 21:00 11/30/20 22:07 DC 11/29/20 21:19 Divalproex Sodium (Depakote Er) 500 mg QHS PO 11/30/20 22:10 12/06/20 10:27 DC 12/04/20 22:00 Docusate Sodium (Colace) 100 mg BID PO 11/12/20 09:00 12/19/20 08:30 Haloperidol (Haldol) 5 mg BID@0800,2000 IM 12/15/20 20:00 12/16/20 10:47 DC 12/15/20 22:04 Haloperidol (Haldol) 5 mg Q6HP PRN PO AGITATION 12/03/20 12:25 12/18/20 19:59 Haloperidol (Haldol) 5 mg QHS IM 12/16/20 10:45 12/16/20 10:50 DC Haloperidol (Haldol) 5 mg QHS IM 12/16/20 21:00 12/16/20 21:17 Haloperidol (Haldol) 5 mg STAT STAT IM 12/19/20 07:40 12/19/20 07:42 DC 12/19/20 07:56 Ketorolac Tromethamine (ToRADol) 30 mg BIDP PRN IM PAIN LEVEL 6-10 12/14/20 09:20 12/17/20 08:45 Ketorolac Tromethamine (ToRADol) 30 mg Q6H PRN IM PAIN LEVEL 5-10 12/14/20 09:45 12/14/20 09:47 DC Levetiracetam (Keppra Oral Solution) 500 mg BID PO 11/12/20 09:00 12/19/20 08:29 Levothyroxine Sodium (Synthroid) 100 mcg DAILY@06 PO 11/12/20 06:00 12/19/20 07:00 Lorazepam (Ativan) 0.5 mg BID PO 11/17/20 09:00 11/18/20 08:31 DC 11/17/20 19:56 Lorazepam (Ativan) 1 mg BID PO 11/14/20 09:00 11/17/20 07:27 DC 11/16/20 20:33 Lorazepam (Ativan) 1 mg QHS PO 12/01/20 21:00 12/06/20 10:27 DC 12/04/20 21:59 Lorazepam (Ativan) 1 mg STAT STAT IM 12/17/20 15:43 12/17/20 15:45 DC 12/17/20 16:04 Lorazepam (Ativan) 1 mg TID PO 12/06/20 09:00 12/12/20 08:49 DC 12/11/20 10:31 Magnesium Hydroxide (Milk Of Magnesia) 30 ml DAILYPRN PRN PO CONSTIPATION 11/11/20 19:40 Miscellaneous (Unresolved Clarification Entry) SEE LABEL COMMENTS DAILY XX 12/11/20 09:00 12/13/20 09:04 DC Nystatin (Mycostatin Powder, Nystop) APPLY TO AREAS OF RASH BIDP PRN TOP RASH 12/15/20 18:45 Oxycodone/ Acetaminophen (Percocet 5mg/ 325mg Tablet) 1 tab Q6HP PRN PO MODERATE PAIN (PS 5-7) 12/13/20 16:10 12/18/20 19:59 Pantoprazole Sodium (Protonix) 40 mg DAILY PO 11/12/20 09:00 12/19/20 08:30 Polyethylene Glycol (Miralax) 1 pkt DAILY PO 11/12/20 09:00 12/17/20 09:38 Quetiapine Fumarate (SEROquel) 100 mg QHS PO 11/13/20 21:00 11/18/20 08:31 DC 11/17/20 19:56 Quetiapine Fumarate (SEROquel) 100 mg QHS PO 11/23/20 21:00 12/01/20 09:14 DC 11/29/20 21:19 Quetiapine Fumarate (SEROquel) 200 mg QHS PO 12/01/20 21:00 12/18/20 19:59 Risperidone (RisperDAL Consta) 37.5 mg Q14D@09 IM 12/07/20 09:00 12/07/20 10:54 DC Risperidone (RisperDAL Consta) 37.5 mg Q14D@09 IM 12/08/20 09:00 12/08/20 10:57 Risperidone (RisperDAL LIQUID) 4 mg QHS PO 11/12/20 21:00 11/14/20 08:57 DC 11/12/20 21:48 Risperidone (RisperDAL) 2 mg BID PO 11/14/20 09:00 11/21/20 09:34 DC 11/20/20 21:02 Risperidone (RisperDAL) 2 mg QHS PO 11/21/20 21:00 11/23/20 08:57 DC 11/22/20 20:41 Risperidone (RisperDAL) 2 mg QHS PO 12/13/20 21:00 12/18/20 19:59 Risperidone (RisperDAL) 3 mg QHS PO 11/23/20 21:00 11/28/20 09:00 DC 11/27/20 21:58 Risperidone (RisperDAL) 4 mg DAILY@1700 PO 12/07/20 17:00 12/13/20 09:03 DC Risperidone (RisperDAL) 4 mg QHS PO 11/28/20 21:00 12/06/20 10:27 DC 12/04/20 22:01 Risperidone (RisperDAL) 4 mg QPM PO 12/06/20 17:00 12/07/20 09:42 DC 12/06/20 20:49 Sodium Chloride ([place] Saline Nasal Gel) APPLY SMALL RADHIKA... Q4HP PRN NA NASAL DRYNESS 12/02/20 10:50 Trazodone HCl (Desyrel) 50 mg QHSP PRN PO INSOMNIA 11/11/20 19:40 12/18/20 19:59 Valproic Acid (Depakene Solution) 500 mg 0800,1600 PO 12/06/20 08:00 12/19/20 08:28 Valproic Acid (Depakene) 500 mg BID PO 12/06/20 09:00 Cancel Allergies Coded Allergies: Sulfa (Sulfonamide Antibiotics) (Verified Allergy, Unknown, 01/21/19) aspirin (Verified Allergy, Unknown, 01/21/19) MARISOL HURD M.D. Dec 19, 2020 08:55
[2020-12-19] MEDS: diphenhydrAMINE 50MG/ML VIAL (J1200) IM SCH (21:00)
[2020-12-19] MEDS: HALOPERIDOL 5MG/ML VIAL (J1630 PER 1) IM SCH (21:00)
[2020-12-19] MEDS: diphenhydrAMINE 50MG CAP PO PRN (21:54)
[2020-12-19] MEDS: QUEtiapine FUMARATE 200 MG TAB PO SCH (21:54)
[2020-12-19] MEDS: risperiDONE 2 MG TAB PO SCH (21:54)
[2020-12-19] MEDS: haloperidoL 5 MG TAB PO PRN (21:55)
[2020-12-20 07:14] VITALS: BP 150/72
[2020-12-20] MEDS: amLODIPine 5 MG TAB PO SCH (09:00)
[2020-12-20] MEDS: DOCUSATE SODIUM 100MG CAPSULE PO SCH ×2 (09:00→21:55)
[2020-12-20] MEDS: MIRALAX *UNIT DOSE* 17GM PACKET PO SCH (09:00)
[2020-12-20] MEDS: PANTOPRAZOLE 40MG TAB (PROTONIX) PO SCH (09:00)
[2020-12-20] MEDS: BENZTROPINE 1 MG TAB PO SCH ×2 (09:00→21:55)
[2020-12-20] MEDS: diphenhydrAMINE 50MG CAP PO PRN (09:24)
[2020-12-20] MEDS: haloperidoL 5 MG TAB PO PRN (09:24)
[2020-12-20] MEDS: levETIRAcetam ORAL SOLUTION 500 MG/5 ML UDC PO SCH ×2 (09:25→21:56)
[2020-12-20] MEDS: VALPROIC ACID 250MG/5ML SOL ORAL SYRINGE *DRAW UP EXACT DOSE PO SCH ×2 (09:25→15:18)
[2020-12-20] MEDS: LEVOTHYROXINE 100MCG TABLET (0.1MG) PO SCH (09:25)
[2020-12-20 10:44] LABS: BASO % 0.9 % (0.0-1.0); EOS # 0.2 10^3/uL (0.0-0.5); EOS % 3.3 % (0.0-3.0); HEMATOCRIT 35.2 % (36.0-47.0); HEMOGLOBIN 11.1 g/dl (12.0-15.5); LYMPH # 0.9 10^3/uL (1.5-5.0); LYMPH % 19.7 % (24.0-44.0); MEAN CORPUSCULAR HEMOGLOBIN 29.3 pg (27.0-33.0); MEAN CORPUSCULAR HGB CONC 31.5 g/dl (32.0-36.5); MEAN CORPUSCULAR VOLUME 92.9 fl (80.0-96.0); MONO # 0.3 10^3/uL (0.0-0.8); MONO % 7.3 % (2.0-8.0); NEUTROPHILS # 3.1 10^3/uL (1.5-8.5); NEUTROPHILS % 68.4 % (36.0-66.0); PLATELET COUNT, AUTOMATED 195 10^3/uL (150-450); RED BLOOD COUNT 3.79 10^6/uL (4.00-5.40); WHITE BLOOD COUNT 4.5 10^3/uL (4.0-10.0)
--- NOTE | 2020-12-20 10:54 | MHIPNPDOC ---
[facility] Progress Note Progress Note DATE OF SERVICE: 12/20/20 The patient is resting on a hospital bed and does not appear to be in any acute physical distress. Patient is alert awake and slightly more responsive and is able to read the MDs name from the ID. Otherwise she is very pressured and screaming at times and remains quite restless and agitated and disorganized. She only slept about 3 hours after she was given Haldol and Benadryl injection and has not left her bed very much since she had wrist fracture. I would ask hospitalist to consider DVT prophylaxis. She has been taking her oral medicine inconsistently but in the past few days has been able to take with great deal of encouragement and support from the nursing staff. Patient is to be seen by Dr. Salinas for second opinion and I will get basic blood work and Depakote level to further adjust her medications. HISTORY:. VITAL SIGNS: See below. NEW TEST RESULTS:. CURRENT MEDICATIONS: See below. MENTAL STATUS EXAMINATION: Patient is a 70-year old female, who is alert but restless and agitated. Speech: Is fragmented not very relevant. Language skills are poor. Thought processes including: Disorganized. Thought content: Difficult to evaluate. Abstract reasoning, and computation: Poor. Description of associations: Disorganized. Description of abnormal or psychotic thoughts: Very agitated. Judgment: Poor. Insight: Poor. Orientation: Appears oriented to the place and person at times. Recent and remote memory: Difficult to evaluate. Attention span and concentration:. Language:. Fund of knowledge:. Mood: Appears anxious and restless. Affect: Frequently agitated. DIAGNOSES: 1.. Schizoaffective disorder 2.. 3.. ASSESSMENT: No significant improvement MANAGEMENT PLAN: Will get medical recommendation for DVT prophylaxis and get routine blood work. Continue with the supportive therapy TIME SPENT: 20 Minutes. Vital Signs Vital Signs Date Time Temp Pulse Resp B/P (MAP) Pulse Ox O2 Delivery O2 Flow Rate FiO2 12/20/20 07:14 97.9 78 20 150/72 (98) 96 Room Air Laboratory Data 24H Labs Laboratory Tests 2 12/20/20 10:26: Immature Granulocyte % (Auto) 0.4, Neutrophils (%) (Auto) 68.4H, Lymphocytes (%) (Auto) 19.7L, Monocytes (%) (Auto) 7.3, Eosinophils (%) (Auto) 3.3H, Basophils (%) (Auto) 0.9, Neutrophils # (Auto) 3.1, Lymphocytes # (Auto) 0.9L, Monocytes # (Auto) 0.3, Eosinophils # (Auto) 0.2, Basophils # (Auto) 0.0, Nucleated Red Blood Cells % (auto) 0.0 CBC/BMP Laboratory Tests 12/20/20 10:26 Current Medications Current Medications Medications (Trade) Dose Ordered Sig/Marisa Route PRN Reason Start Time Stop Time Status Last Admin Dose Admin Acetaminophen (Tylenol Tab) 650 mg Q6HP PRN PO HEADACHE or MILD DISCOMFORT 11/11/20 19:40 12/06/20 17:06 Al Hydrox/Mg Hydrox/Simethicone (Mylanta) 30 ml Q4HP PRN PO HEARTBURN/INDIGESTION 11/11/20 19:40 Amlodipine Besylate (Norvasc) 5 mg DAILY PO 11/12/20 09:00 12/19/20 08:30 Benztropine Mesylate (Cogentin) 1 mg BID PO 12/13/20 09:00 12/19/20 21:54 Ceftriaxone Sodium (Rocephin) 1 gm Q24H IM 12/08/20 18:00 12/15/20 17:59 DC 12/14/20 17:36 Cephalexin Monohydrate (Keflex) 500 mg Q6H PO 12/04/20 18:00 12/08/20 18:01 DC 12/05/20 12:51 Diphenhydramine HCl (Benadryl) 50 mg BID@08,1999 IM 12/15/20 08:00 12/15/20 10:58 DC Diphenhydramine HCl (Benadryl) 50 mg BID@0800,1999 IM 12/15/20 20:00 12/16/20 10:47 DC 12/15/20 22:04 Diphenhydramine HCl (Benadryl) 50 mg Q6HP PRN PO AGITATION 12/03/20 12:25 12/20/20 09:24 Diphenhydramine HCl (Benadryl) 50 mg QHS IM 12/16/20 10:45 12/16/20 10:50 DC Diphenhydramine HCl (Benadryl) 50 mg QHS IM 12/16/20 21:00 12/16/20 21:17 Diphenhydramine HCl (Benadryl) 50 mg STAT STAT IM 12/19/20 07:40 12/19/20 07:42 DC 12/19/20 07:56 Divalproex Sodium (Depakote Sprinkles) 500 mg BID PO 11/13/20 09:00 11/25/20 11:02 DC 11/25/20 09:30 Divalproex Sodium (Depakote Er) 250 mg DAILY PO 11/26/20 09:00 12/02/20 07:14 DC 12/01/20 09:55 Divalproex Sodium (Depakote Er) 500 mg BID PO 11/13/20 09:00 11/13/20 09:00 DC Divalproex Sodium (Depakote Er) 500 mg DAILY PO 12/04/20 09:00 12/06/20 10:27 DC 12/05/20 12:43 Divalproex Sodium (Depakote Er) 500 mg DAILY PO 12/02/20 09:00 12/04/20 08:53 DC Divalproex Sodium (Depakote Er) 500 mg QHS PO 11/25/20 21:00 11/30/20 22:07 DC 11/29/20 21:19 Divalproex Sodium (Depakote Er) 500 mg QHS PO 11/30/20 22:10 12/06/20 10:27 DC 12/04/20 22:00 Docusate Sodium (Colace) 100 mg BID PO 11/12/20 09:00 12/19/20 21:54 Haloperidol (Haldol) 5 mg BID@0800,2000 IM 12/15/20 20:00 12/16/20 10:47 DC 12/15/20 22:04 Haloperidol (Haldol) 5 mg Q6HP PRN PO AGITATION 12/03/20 12:25 12/20/20 09:24 Haloperidol (Haldol) 5 mg QHS IM 12/16/20 10:45 12/16/20 10:50 DC Haloperidol (Haldol) 5 mg QHS IM 12/16/20 21:00 12/16/20 21:17 Haloperidol (Haldol) 5 mg STAT STAT IM 12/19/20 07:40 12/19/20 07:42 DC 12/19/20 07:56 Ketorolac Tromethamine (ToRADol) 30 mg BIDP PRN IM PAIN LEVEL 6-10 12/14/20 09:20 12/17/20 08:45 Ketorolac Tromethamine (ToRADol) 30 mg Q6H PRN IM PAIN LEVEL 5-10 12/14/20 09:45 12/14/20 09:47 DC Levetiracetam (Keppra Oral Solution) 500 mg BID PO 11/12/20 09:00 12/20/20 09:25 Levothyroxine Sodium (Synthroid) 100 mcg DAILY@06 PO 11/12/20 06:00 12/20/20 09:25 Lorazepam (Ativan) 0.5 mg BID PO 11/17/20 09:00 11/18/20 08:31 DC 11/17/20 19:56 Lorazepam (Ativan) 1 mg BID PO 11/14/20 09:00 11/17/20 07:27 DC 11/16/20 20:33 Lorazepam (Ativan) 1 mg QHS PO 12/01/20 21:00 12/06/20 10:27 DC 12/04/20 21:59 Lorazepam (Ativan) 1 mg STAT STAT IM 12/17/20 15:43 12/17/20 15:45 DC 12/17/20 16:04 Lorazepam (Ativan) 1 mg TID PO 12/06/20 09:00 12/12/20 08:49 DC 12/11/20 10:31 Magnesium Hydroxide (Milk Of Magnesia) 30 ml DAILYPRN PRN PO CONSTIPATION 11/11/20 19:40 Miscellaneous (Unresolved Clarification Entry) SEE LABEL COMMENTS DAILY XX 12/11/20 09:00 12/13/20 09:04 DC Nystatin (Mycostatin Powder, Nystop) APPLY TO AREAS OF RASH BIDP PRN TOP RASH 12/15/20 18:45 Oxycodone/ Acetaminophen (Percocet 5mg/ 325mg Tablet) 1 tab Q6HP PRN PO MODERATE PAIN (PS 5-7) 12/13/20 16:10 12/18/20 19:59 Pantoprazole Sodium (Protonix) 40 mg DAILY PO 11/12/20 09:00 12/19/20 08:30 Polyethylene Glycol (Miralax) 1 pkt DAILY PO 11/12/20 09:00 12/17/20 09:38 Quetiapine Fumarate (SEROquel) 100 mg QHS PO 11/13/20 21:00 11/18/20 08:31 DC 11/17/20 19:56 Quetiapine Fumarate (SEROquel) 100 mg QHS PO 11/23/20 21:00 12/01/20 09:14 DC 11/29/20 21:19 Quetiapine Fumarate (SEROquel) 200 mg QHS PO 12/01/20 21:00 12/19/20 21:54 Risperidone (RisperDAL Consta) 37.5 mg Q14D@09 IM 12/07/20 09:00 12/07/20 10:54 DC Risperidone (RisperDAL Consta) 37.5 mg Q14D@09 IM 12/08/20 09:00 12/08/20 10:57 Risperidone (RisperDAL LIQUID) 4 mg QHS PO 11/12/20 21:00 11/14/20 08:57 DC 11/12/20 21:48 Risperidone (RisperDAL) 2 mg BID PO 11/14/20 09:00 11/21/20 09:34 DC 11/20/20 21:02 Risperidone (RisperDAL) 2 mg QHS PO 11/21/20 21:00 11/23/20 08:57 DC 11/22/20 20:41 Risperidone (RisperDAL) 2 mg QHS PO 12/13/20 21:00 12/19/20 21:54 Risperidone (RisperDAL) 3 mg QHS PO 11/23/20 21:00 11/28/20 09:00 DC 11/27/20 21:58 Risperidone (RisperDAL) 4 mg DAILY@1700 PO 12/07/20 17:00 12/13/20 09:03 DC Risperidone (RisperDAL) 4 mg QHS PO 11/28/20 21:00 12/06/20 10:27 DC 12/04/20 22:01 Risperidone (RisperDAL) 4 mg QPM PO 12/06/20 17:00 12/07/20 09:42 DC 12/06/20 20:49 Sodium Chloride ([place] Saline Nasal Gel) APPLY SMALL RADHIKA... Q4HP PRN NA NASAL DRYNESS 12/02/20 10:50 Trazodone HCl (Desyrel) 50 mg QHSP PRN PO INSOMNIA 11/11/20 19:40 12/18/20 19:59 Valproic Acid (Depakene Solution) 500 mg 0800,1600 PO 12/06/20 08:00 12/20/20 09:25 Valproic Acid (Depakene) 500 mg BID PO 12/06/20 09:00 Cancel Allergies Coded Allergies: Sulfa (Sulfonamide Antibiotics) (Verified Allergy, Unknown, 01/21/19) aspirin (Verified Allergy, Unknown, 01/21/19) MARISOL HURD M.D. Dec 20, 2020 10:54
[2020-12-20 11:21] LABS: ALBUMIN 2.8 GM/DL (3.2-5.2); ALT/SGPT 19 U/L (12-78); BILIRUBIN,TOTAL 0.3 MG/DL (0.2-1.0); BLOOD UREA NITROGEN 12 MG/DL (7-18); CALCIUM LEVEL 8.6 MG/DL (8.8-10.2); CARBON DIOXIDE LEVEL 31 MEQ/L (21-32); CHLORIDE LEVEL 107 MEQ/L (98-107); CREATININE FOR GFR 0.88 MG/DL (0.55-1.30); GLOMERULAR FILTRATION RATE > 60.0 (>45); GLUCOSE, FASTING 98 MG/DL (70-100); SODIUM LEVEL 143 MEQ/L (136-145); TOTAL PROTEIN 6.3 GM/DL (6.4-8.2); VALPROIC ACID (DEPAKOTE) 68.1 UG/ML (50.0-100.0)
--- NOTE | 2020-12-20 17:21 | MHIPNPDOC ---
[facility] Progress Note Progress Note DATE OF SERVICE: 12/20/20 HISTORY: Evaluated 70 year old female who was originally admitted for altered mental status. she was found rambling with scattered pill bottles around her in her home. It was difficult for Doctors to obtain a history from her because she was tangential and disorganized. she had to be observed per recommendation of Poison control, she was monitored and medically cleared from the Hospital floor. She was transferred to the [facility] where she had to receive Rocephin IM because she wouldn't take oral medication for a UTI. She had a fall and fractured her arm. According to staff, her mental status had improved a lot but then she decompensated again. she has been irritable, she has yelled at staff, but this afternoon, she agreed to meet with me via zoom and she was very pleasant with me. Dr. Geller has requested a second opinion because she doesn't seem to respond as expected to medications. VITAL SIGNS: See below. NEW TEST RESULTS: See below. CURRENT MEDICATIONS: See below. MENTAL STATUS EXAMINATION: Patient is a 70-year old female, who is alert, dressed in hospital gown, sitting on a chair in her room, with good hygiene and good eye contact. Speech: Is a little slurred, difficult to understand at times but it has normal volume and tone. It was not circumstantial or tangential Language skills are fair. Thought processes including: linear and coherent. Thought content: negative for suicidal/homicidal ideation, negative for thought delusions. Description of associations: not loose. Description of abnormal or psychotic thoughts: she denies auditory hallucinations, reports she sees floaters but she knows this is because she has cataracts. Denies visual hallucinations, denies paranoid thoughts. she was not responding to internal stimuli. Judgment: fair. Insight: fair. Orientation: partially oriented to date and time, oriented to place and person. Recent and remote memory: She says she doesn't remember when she was brought to the Hospital but she remembers that she has good neighbors that help her out when in need, remembers her document management technician got covid, remembers this is the month of November Attention span and concentration: she was able to follow our conversation, she was not easily distracted. Language: adequate. Fund of knowledge: she knows about covid, she knows about the Delta variant that she calls the second virus. Knowledge is average Mood: euthymic. Affect: congruent with mood. DIAGNOSES: 1. Schizoaffective disorder ASSESSMENT: the patient seems to be responding to medications at this time. According to staff she doesn't behave with them the same as she behaved with me. She was pleasant, cooperative, she was engaged in the conversation, she smiled at times. She knows the difference between floaters and a visual hallucination and she told me she has floaters because she has cataracts. She reported feeling as if she has support at home because she has neighbors who are able to help, she talked about her document management technician but she mentioned twice that this lady had contracted covid, as if she is afraid of the virus. she mentioned covid again when she said there's a second virus going around ( by that she meant the variant). My feeling is that she might be anxious about going home, anxious about her recent fall and maybe anxiety triggers irritability and anger. Another contributing factor could have been the UTI. I believe part of this could have been behavioral, maybe she's afraid of going back home, maybe she has been afraid of covid all this long. She has not been taking too much Haldol or too much Benadryl lately and has not amanda 100% compliant with her medications but she has been taking them more consistently. I think she is on the right pathway, I wouldn't modify her medications at this time. I will see her again this weekend since I'm going to be environmental control administrator and will monitor her behavior. MANAGEMENT PLAN: Continue Dr. Geller treatment plan TIME SPENT: 20 minutes. Vital Signs Vital Signs Date Time Temp Pulse Resp B/P (MAP) Pulse Ox O2 Delivery O2 Flow Rate FiO2 12/20/20 07:14 97.9 78 20 150/72 (98) 96 Room Air Laboratory Data 24H Labs Laboratory Tests 2 12/20/20 10:26: Immature Granulocyte % (Auto) 0.4, Neutrophils (%) (Auto) 68.4H, Lymphocytes (%) (Auto) 19.7L, Monocytes (%) (Auto) 7.3, Eosinophils (%) (Auto) 3.3H, Basophils (%) (Auto) 0.9, Neutrophils # (Auto) 3.1, Lymphocytes # (Auto) 0.9L, Monocytes # (Auto) 0.3, Eosinophils # (Auto) 0.2, Basophils # (Auto) 0.0, Nucleated Red Blood Cells % (auto) 0.0, Anion Gap 5L, Glomerular Filtration Rate > 60.0, Calcium Level 8.6L, Total Bilirubin 0.3, Aspartate Amino Transf (AST/SGOT) 14, Alanine Aminotransferase (ALT/SGPT) 19, Alkaline Phosphatase 70, Total Protein 6.3L, Albumin 2.8L, Albumin/Globulin Ratio 0.8L, Valproic Acid (Depakene) Level 68.1 CBC/BMP Laboratory Tests 12/20/20 10:26 Current Medications Current Medications Medications (Trade) Dose Ordered Sig/Marisa Route PRN Reason Start Time Stop Time Status Last Admin Dose Admin Acetaminophen (Tylenol Tab) 650 mg Q6HP PRN PO HEADACHE or MILD DISCOMFORT 11/11/20 19:40 12/06/20 17:06 Al Hydrox/Mg Hydrox/Simethicone (Mylanta) 30 ml Q4HP PRN PO HEARTBURN/INDIGESTION 11/11/20 19:40 Amlodipine Besylate (Norvasc) 5 mg DAILY PO 11/12/20 09:00 12/19/20 08:30 Benztropine Mesylate (Cogentin) 1 mg BID PO 12/13/20 09:00 12/19/20 21:54 Ceftriaxone Sodium (Rocephin) 1 gm Q24H IM 12/08/20 18:00 12/15/20 17:59 DC 12/14/20 17:36 Cephalexin Monohydrate (Keflex) 500 mg Q6H PO 12/04/20 18:00 12/08/20 18:01 DC 12/05/20 12:51 Diphenhydramine HCl (Benadryl) 50 mg BID@ IM 12/15/20 08:00 12/15/20 10:58 DC Diphenhydramine HCl (Benadryl) 50 mg BID@00,1999 IM 12/15/20 20:00 12/16/20 10:47 DC 12/15/20 22:04 Diphenhydramine HCl (Benadryl) 50 mg Q6HP PRN PO AGITATION 12/03/20 12:25 12/20/20 09:24 Diphenhydramine HCl (Benadryl) 50 mg QHS IM 12/16/20 10:45 12/16/20 10:50 DC Diphenhydramine HCl (Benadryl) 50 mg QHS IM 12/16/20 21:00 12/16/20 21:17 Diphenhydramine HCl (Benadryl) 50 mg STAT STAT IM 12/19/20 07:40 12/19/20 07:42 DC 12/19/20 07:56 Divalproex Sodium (Depakote Sprinkles) 500 mg BID PO 11/13/20 09:00 11/25/20 11:02 DC 11/25/20 09:30 Divalproex Sodium (Depakote Er) 250 mg DAILY PO 11/26/20 09:00 12/02/20 07:14 DC 12/01/20 09:55 Divalproex Sodium (Depakote Er) 500 mg BID PO 11/13/20 09:00 11/13/20 09:00 DC Divalproex Sodium (Depakote Er) 500 mg DAILY PO 12/04/20 09:00 12/06/20 10:27 DC 12/05/20 12:43 Divalproex Sodium (Depakote Er) 500 mg DAILY PO 12/02/20 09:00 12/04/20 08:53 DC Divalproex Sodium (Depakote Er) 500 mg QHS PO 11/25/20 21:00 11/30/20 22:07 DC 11/29/20 21:19 Divalproex Sodium (Depakote Er) 500 mg QHS PO 11/30/20 22:10 12/06/20 10:27 DC 12/04/20 22:00 Docusate Sodium (Colace) 100 mg BID PO 11/12/20 09:00 12/19/20 21:54 Enoxaparin Sodium (Lovenox) 40 mg DAILY SC 12/21/20 09:00 Haloperidol (Haldol) 5 mg BID@0800,2000 IM 12/15/20 20:00 12/16/20 10:47 DC 12/15/20 22:04 Haloperidol (Haldol) 5 mg Q6HP PRN PO AGITATION 12/03/20 12:25 12/20/20 09:24 Haloperidol (Haldol) 5 mg QHS IM 12/16/20 10:45 12/16/20 10:50 DC Haloperidol (Haldol) 5 mg QHS IM 12/16/20 21:00 12/16/20 21:17 Haloperidol (Haldol) 5 mg STAT STAT IM 12/19/20 07:40 12/19/20 07:42 DC 12/19/20 07:56 Ketorolac Tromethamine (ToRADol) 30 mg BIDP PRN IM PAIN LEVEL 6-10 12/14/20 09:20 12/17/20 08:45 Ketorolac Tromethamine (ToRADol) 30 mg Q6H PRN IM PAIN LEVEL 5-10 12/14/20 09:45 12/14/20 09:47 DC Levetiracetam (Keppra Oral Solution) 500 mg BID PO 11/12/20 09:00 12/20/20 09:25 Levothyroxine Sodium (Synthroid) 100 mcg DAILY@06 PO 11/12/20 06:00 12/20/20 09:25 Lorazepam (Ativan) 0.5 mg BID PO 11/17/20 09:00 11/18/20 08:31 DC 11/17/20 19:56 Lorazepam (Ativan) 1 mg BID PO 11/14/20 09:00 11/17/20 07:27 DC 11/16/20 20:33 Lorazepam (Ativan) 1 mg QHS PO 12/01/20 21:00 12/06/20 10:27 DC 12/04/20 21:59 Lorazepam (Ativan) 1 mg STAT STAT IM 12/17/20 15:43 12/17/20 15:45 DC 12/17/20 16:04 Lorazepam (Ativan) 1 mg TID PO 12/06/20 09:00 12/12/20 08:49 DC 12/11/20 10:31 Magnesium Hydroxide (Milk Of Magnesia) 30 ml DAILYPRN PRN PO CONSTIPATION 11/11/20 19:40 Miscellaneous (Unresolved Clarification Entry) SEE LABEL COMMENTS DAILY XX 12/11/20 09:00 12/13/20 09:04 DC Nystatin (Mycostatin Powder, Nystop) APPLY TO AREAS OF RASH BIDP PRN TOP RASH 12/15/20 18:45 Oxycodone/ Acetaminophen (Percocet 5mg/ 325mg Tablet) 1 tab Q6HP PRN PO MODERATE PAIN (PS 5-7) 12/13/20 16:10 12/18/20 19:59 Pantoprazole Sodium (Protonix) 40 mg DAILY PO 11/12/20 09:00 12/19/20 08:30 Polyethylene Glycol (Miralax) 1 pkt DAILY PO 11/12/20 09:00 12/17/20 09:38 Quetiapine Fumarate (SEROquel) 100 mg QHS PO 11/13/20 21:00 11/18/20 08:31 DC 11/17/20 19:56 Quetiapine Fumarate (SEROquel) 100 mg QHS PO 11/23/20 21:00 12/01/20 09:14 DC 11/29/20 21:19 Quetiapine Fumarate (SEROquel) 200 mg QHS PO 12/01/20 21:00 12/19/20 21:54 Risperidone (RisperDAL Consta) 37.5 mg Q14D@09 IM 12/07/20 09:00 12/07/20 10:54 DC Risperidone (RisperDAL Consta) 37.5 mg Q14D@09 IM 12/08/20 09:00 12/08/20 10:57 Risperidone (RisperDAL LIQUID) 4 mg QHS PO 11/12/20 21:00 11/14/20 08:57 DC 11/12/20 21:48 Risperidone (RisperDAL) 2 mg BID PO 11/14/20 09:00 11/21/20 09:34 DC 11/20/20 21:02 Risperidone (RisperDAL) 2 mg QHS PO 11/21/20 21:00 11/23/20 08:57 DC 11/22/20 20:41 Risperidone (RisperDAL) 2 mg QHS PO 12/13/20 21:00 12/19/20 21:54 Risperidone (RisperDAL) 3 mg QHS PO 11/23/20 21:00 11/28/20 09:00 DC 11/27/20 21:58 Risperidone (RisperDAL) 4 mg DAILY@1700 PO 12/07/20 17:00 12/13/20 09:03 DC Risperidone (RisperDAL) 4 mg QHS PO 11/28/20 21:00 12/06/20 10:27 DC 12/04/20 22:01 Risperidone (RisperDAL) 4 mg QPM PO 12/06/20 17:00 12/07/20 09:42 DC 12/06/20 20:49 Sodium Chloride ([place] Saline Nasal Gel) APPLY SMALL RADHIKA... Q4HP PRN NA NASAL DRYNESS 12/02/20 10:50 Trazodone HCl (Desyrel) 50 mg QHSP PRN PO INSOMNIA 11/11/20 19:40 12/18/20 19:59 Valproic Acid (Depakene Solution) 500 mg 0800,1600 PO 12/06/20 08:00 12/20/20 15:18 Valproic Acid (Depakene) 500 mg BID PO 12/06/20 09:00 Cancel Allergies Coded Allergies: Sulfa (Sulfonamide Antibiotics) (Verified Allergy, Unknown, 01/21/19) aspirin (Verified Allergy, Unknown, 01/21/19) FLORIDA HART MD Dec 20, 2020 17:09
[2020-12-20 18:00] VITALS: BP 122/70
[2020-12-20] MEDS: diphenhydrAMINE 50MG/ML VIAL (J1200) IM SCH (21:10)
[2020-12-20] MEDS: HALOPERIDOL 5MG/ML VIAL (J1630 PER 1) IM SCH (21:10)
[2020-12-20] MEDS: QUEtiapine FUMARATE 200 MG TAB PO SCH (21:55)
[2020-12-20] MEDS: risperiDONE 2 MG TAB PO SCH (21:55)
[2020-12-21] MEDS: DOCUSATE SODIUM 100MG CAPSULE PO SCH ×2 (09:00→22:22)
--- NOTE | 2020-12-21 09:24 | MHIPNPDOC ---
[facility] Progress Note Progress Note DATE OF SERVICE: 12/21/20 The patient was able to take all of her oral medications yesterday. She has cooperated with her blood work and CMP and CBC is all within normal limit and Depakote level is 68. She was in much better control yesterday and when seen by Dr. Salinas for second opinion she was able to fully cooperate and responded in clear coherent manner. This is a rather remarkable change from a previous presentation and would probably indicate some degree of behavioral issues. In any case she is in better control and is sleeping much better and Currently resting comfortably. I will continue with her oral medications and discussed with her further when she is awake regarding long-acting risperidone injection. HISTORY:. VITAL SIGNS: See below. NEW TEST RESULTS:. CURRENT MEDICATIONS: See below. MENTAL STATUS EXAMINATION: Patient is a 70-year old female, who is resting comfortably. Speech: Is was much coherent and productive yesterday. Language skills are appears to be much better. Thought processes including: Was organized and relevant. Thought content: Did not show any paranoid content. Abstract reasoning, and computation: Difficult to evaluate. Description of associations: Was much better organized. Description of abnormal or psychotic thoughts: Difficult to evaluate. Judgment: Poor. Insight: Poor. Orientation: Was oriented. Recent and remote memory: Was showing no significant impairment. Attention span and concentration:. Language:. Fund of knowledge:. Mood: Been irritable and demanding at times. Affect:. DIAGNOSES: 1.. Schizoaffective disorder 2.. 3.. ASSESSMENT: Is much more cooperative with medications and showed significant improvement yesterday MANAGEMENT PLAN: Continue with the current medicine and discussed with the regarding long-acting risperidone. TIME SPENT: 20 Minutes. Vital Signs Vital Signs Date Time Temp Pulse Resp B/P (MAP) Pulse Ox O2 Delivery O2 Flow Rate FiO2 12/20/20 18:00 98.7 85 118 122/70 (87) 12/20/20 07:14 96 Room Air Laboratory Data 24H Labs Laboratory Tests 2 12/20/20 10:26: Immature Granulocyte % (Auto) 0.4, Neutrophils (%) (Auto) 68.4H, Lymphocytes (%) (Auto) 19.7L, Monocytes (%) (Auto) 7.3, Eosinophils (%) (Auto) 3.3H, Basophils (%) (Auto) 0.9, Neutrophils # (Auto) 3.1, Lymphocytes # (Auto) 0.9L, Monocytes # (Auto) 0.3, Eosinophils # (Auto) 0.2, Basophils # (Auto) 0.0, Nucleated Red Blood Cells % (auto) 0.0, Anion Gap 5L, Glomerular Filtration Rate > 60.0, Calcium Level 8.6L, Total Bilirubin 0.3, Aspartate Amino Transf (AST/SGOT) 14, Alanine Aminotransferase (ALT/SGPT) 19, Alkaline Phosphatase 70, Total Protein 6.3L, Albumin 2.8L, Albumin/Globulin Ratio 0.8L, Valproic Acid (Depakene) Level 68.1 CBC/BMP Laboratory Tests 12/20/20 10:26 Current Medications Current Medications Medications (Trade) Dose Ordered Sig/Marisa Route PRN Reason Start Time Stop Time Status Last Admin Dose Admin Acetaminophen (Tylenol Tab) 650 mg Q6HP PRN PO HEADACHE or MILD DISCOMFORT 11/11/20 19:40 12/06/20 17:06 Al Hydrox/Mg Hydrox/Simethicone (Mylanta) 30 ml Q4HP PRN PO HEARTBURN/INDIGESTION 11/11/20 19:40 Amlodipine Besylate (Norvasc) 5 mg DAILY PO 11/12/20 09:00 12/19/20 08:30 Benztropine Mesylate (Cogentin) 1 mg BID PO 12/13/20 09:00 12/20/20 21:55 Ceftriaxone Sodium (Rocephin) 1 gm Q24H IM 12/08/20 18:00 12/15/20 17:59 DC 12/14/20 17:36 Cephalexin Monohydrate (Keflex) 500 mg Q6H PO 12/04/20 18:00 12/08/20 18:01 DC 12/05/20 12:51 Diphenhydramine HCl (Benadryl) 50 mg BID@ IM 12/15/20 08:00 12/15/20 10:58 DC Diphenhydramine HCl (Benadryl) 50 mg BID@00,1999 IM 12/15/20 20:00 12/16/20 10:47 DC 12/15/20 22:04 Diphenhydramine HCl (Benadryl) 50 mg Q6HP PRN PO AGITATION 12/03/20 12:25 12/20/20 09:24 Diphenhydramine HCl (Benadryl) 50 mg QHS IM 12/16/20 10:45 12/16/20 10:50 DC Diphenhydramine HCl (Benadryl) 50 mg QHS IM 12/16/20 21:00 12/20/20 21:10 Diphenhydramine HCl (Benadryl) 50 mg STAT STAT IM 12/19/20 07:40 12/19/20 07:42 DC 12/19/20 07:56 Divalproex Sodium (Depakote Sprinkles) 500 mg BID PO 11/13/20 09:00 11/25/20 11:02 DC 11/25/20 09:30 Divalproex Sodium (Depakote Er) 250 mg DAILY PO 11/26/20 09:00 12/02/20 07:14 DC 12/01/20 09:55 Divalproex Sodium (Depakote Er) 500 mg BID PO 11/13/20 09:00 11/13/20 09:00 DC Divalproex Sodium (Depakote Er) 500 mg DAILY PO 12/04/20 09:00 12/06/20 10:27 DC 12/05/20 12:43 Divalproex Sodium (Depakote Er) 500 mg DAILY PO 12/02/20 09:00 12/04/20 08:53 DC Divalproex Sodium (Depakote Er) 500 mg QHS PO 11/25/20 21:00 11/30/20 22:07 DC 11/29/20 21:19 Divalproex Sodium (Depakote Er) 500 mg QHS PO 11/30/20 22:10 12/06/20 10:27 DC 12/04/20 22:00 Docusate Sodium (Colace) 100 mg BID PO 11/12/20 09:00 12/20/20 21:55 Enoxaparin Sodium (Lovenox) 40 mg DAILY SC 12/21/20 09:00 Haloperidol (Haldol) 5 mg BID@0800,2000 IM 12/15/20 20:00 12/16/20 10:47 DC 12/15/20 22:04 Haloperidol (Haldol) 5 mg Q6HP PRN PO AGITATION 12/03/20 12:25 12/20/20 09:24 Haloperidol (Haldol) 5 mg QHS IM 12/16/20 10:45 12/16/20 10:50 DC Haloperidol (Haldol) 5 mg QHS IM 12/16/20 21:00 12/20/20 21:10 Haloperidol (Haldol) 5 mg STAT STAT IM 12/19/20 07:40 12/19/20 07:42 DC 12/19/20 07:56 Ketorolac Tromethamine (ToRADol) 30 mg BIDP PRN IM PAIN LEVEL 6-10 12/14/20 09:20 12/17/20 08:45 Ketorolac Tromethamine (ToRADol) 30 mg Q6H PRN IM PAIN LEVEL 5-10 12/14/20 09:45 12/14/20 09:47 DC Levetiracetam (Keppra Oral Solution) 500 mg BID PO 11/12/20 09:00 12/20/20 21:56 Levothyroxine Sodium (Synthroid) 100 mcg DAILY@06 PO 11/12/20 06:00 12/20/20 09:25 Lorazepam (Ativan) 0.5 mg BID PO 11/17/20 09:00 11/18/20 08:31 DC 11/17/20 19:56 Lorazepam (Ativan) 1 mg BID PO 11/14/20 09:00 11/17/20 07:27 DC 11/16/20 20:33 Lorazepam (Ativan) 1 mg QHS PO 12/01/20 21:00 12/06/20 10:27 DC 12/04/20 21:59 Lorazepam (Ativan) 1 mg STAT STAT IM 12/17/20 15:43 12/17/20 15:45 DC 12/17/20 16:04 Lorazepam (Ativan) 1 mg TID PO 12/06/20 09:00 12/12/20 08:49 DC 12/11/20 10:31 Magnesium Hydroxide (Milk Of Magnesia) 30 ml DAILYPRN PRN PO CONSTIPATION 11/11/20 19:40 Miscellaneous (Unresolved Clarification Entry) SEE LABEL COMMENTS DAILY XX 12/11/20 09:00 12/13/20 09:04 DC Nystatin (Mycostatin Powder, Nystop) APPLY TO AREAS OF RASH BIDP PRN TOP RASH 12/15/20 18:45 Oxycodone/ Acetaminophen (Percocet 5mg/ 325mg Tablet) 1 tab Q6HP PRN PO MODERATE PAIN (PS 5-7) 12/13/20 16:10 12/18/20 19:59 Pantoprazole Sodium (Protonix) 40 mg DAILY PO 11/12/20 09:00 12/19/20 08:30 Polyethylene Glycol (Miralax) 1 pkt DAILY PO 11/12/20 09:00 12/17/20 09:38 Quetiapine Fumarate (SEROquel) 100 mg QHS PO 11/13/20 21:00 11/18/20 08:31 DC 11/17/20 19:56 Quetiapine Fumarate (SEROquel) 100 mg QHS PO 11/23/20 21:00 12/01/20 09:14 DC 11/29/20 21:19 Quetiapine Fumarate (SEROquel) 200 mg QHS PO 12/01/20 21:00 12/20/20 21:55 Risperidone (RisperDAL Consta) 37.5 mg Q14D@09 IM 12/07/20 09:00 12/07/20 10:54 DC Risperidone (RisperDAL Consta) 37.5 mg Q14D@09 IM 12/08/20 09:00 12/08/20 10:57 Risperidone (RisperDAL LIQUID) 4 mg QHS PO 11/12/20 21:00 11/14/20 08:57 DC 11/12/20 21:48 Risperidone (RisperDAL) 2 mg BID PO 11/14/20 09:00 11/21/20 09:34 DC 11/20/20 21:02 Risperidone (RisperDAL) 2 mg QHS PO 11/21/20 21:00 11/23/20 08:57 DC 11/22/20 20:41 Risperidone (RisperDAL) 2 mg QHS PO 12/13/20 21:00 12/20/20 21:55 Risperidone (RisperDAL) 3 mg QHS PO 11/23/20 21:00 11/28/20 09:00 DC 11/27/20 21:58 Risperidone (RisperDAL) 4 mg DAILY@1700 PO 12/07/20 17:00 12/13/20 09:03 DC Risperidone (RisperDAL) 4 mg QHS PO 11/28/20 21:00 12/06/20 10:27 DC 12/04/20 22:01 Risperidone (RisperDAL) 4 mg QPM PO 12/06/20 17:00 12/07/20 09:42 DC 12/06/20 20:49 Sodium Chloride ([place] Saline Nasal Gel) APPLY SMALL RADHIKA... Q4HP PRN NA NASAL DRYNESS 12/02/20 10:50 Trazodone HCl (Desyrel) 50 mg QHSP PRN PO INSOMNIA 11/11/20 19:40 12/18/20 19:59 Valproic Acid (Depakene Solution) 500 mg 0800,1600 PO 12/06/20 08:00 12/20/20 15:18 Valproic Acid (Depakene) 500 mg BID PO 12/06/20 09:00 Cancel Allergies Coded Allergies: Sulfa (Sulfonamide Antibiotics) (Verified Allergy, Unknown, 01/21/19) aspirin (Verified Allergy, Unknown, 01/21/19) MARISOL HURD M.D. Dec 21, 2020 09:24
[2020-12-21] MEDS: MIRALAX *UNIT DOSE* 17GM PACKET PO SCH (09:41)
[2020-12-21] MEDS: BENZTROPINE 1 MG TAB PO SCH ×2 (09:41→22:22)
[2020-12-21] MEDS: PANTOPRAZOLE 40MG TAB (PROTONIX) PO SCH (09:41)
[2020-12-21] MEDS: levETIRAcetam ORAL SOLUTION 500 MG/5 ML UDC PO SCH ×2 (09:41→22:23)
[2020-12-21] MEDS: LEVOTHYROXINE 100MCG TABLET (0.1MG) PO SCH (09:41)
[2020-12-21] MEDS: ENOXAPARIN 40MG/0.4ML SYRINGE (J1650 PER 10MG) SC SCH (09:42)
[2020-12-21] MEDS: amLODIPine 5 MG TAB PO SCH (09:56)
[2020-12-21 10:00] VITALS: BP 154/70
[2020-12-21] MEDS: VALPROIC ACID 250MG/5ML SOL ORAL SYRINGE *DRAW UP EXACT DOSE PO SCH ×2 (10:08→16:14)
[2020-12-21 18:34] VITALS: BP 126/60
[2020-12-21] MEDS: risperiDONE 2 MG TAB PO SCH (22:23)
[2020-12-21] MEDS: QUEtiapine FUMARATE 200 MG TAB PO SCH (22:23)
[2020-12-21] MEDS: HALOPERIDOL 5MG/ML VIAL (J1630 PER 1) IM SCH (23:53)
[2020-12-21] MEDS: diphenhydrAMINE 50MG/ML VIAL (J1200) IM SCH (23:53)
[2020-12-22] MEDS: LEVOTHYROXINE 100MCG TABLET (0.1MG) PO SCH (05:08)
[2020-12-22 06:26] VITALS: BP 123/59
[2020-12-22] MEDS ORDERED: risperiDONE LONG-ACTING 37.5 MG/2 ML INJ (J2794 PER 0.5MG) IM SCH (09:30)
[2020-12-22] MEDS: ENOXAPARIN 40MG/0.4ML SYRINGE (J1650 PER 10MG) SC SCH (09:33)
[2020-12-22] MEDS: levETIRAcetam ORAL SOLUTION 500 MG/5 ML UDC PO SCH ×2 (09:34→21:23)
[2020-12-22] MEDS: PANTOPRAZOLE 40MG TAB (PROTONIX) PO SCH (09:34)
[2020-12-22] MEDS: amLODIPine 5 MG TAB PO SCH (09:34)
[2020-12-22] MEDS: BENZTROPINE 1 MG TAB PO SCH ×2 (09:34→21:23)
[2020-12-22] MEDS: VALPROIC ACID 250MG/5ML SOL ORAL SYRINGE *DRAW UP EXACT DOSE PO SCH ×2 (09:36→17:05)
[2020-12-22] MEDS: MIRALAX *UNIT DOSE* 17GM PACKET PO SCH (09:36)
[2020-12-22] MEDS ORDERED: HALOPERIDOL 5MG/ML VIAL (J1630 PER 1) IM ONE (09:45)
[2020-12-22] MEDS ORDERED: diphenhydrAMINE 50MG/ML VIAL (J1200) IM ONE (09:45)
[2020-12-22] MEDS: DOCUSATE SODIUM 100MG CAPSULE PO SCH ×3 (09:45→21:23)
[2020-12-22] MEDS: risperiDONE LONG-ACTING 37.5 MG/2 ML INJ (J2794 PER 0.5MG) IM SCH (09:46)
--- NOTE | 2020-12-22 09:55 | MHIPNPDOC ---
[facility] Progress Note Progress Note DATE OF SERVICE: 12/22/20 Patient was quite agitated since yesterday evening and has not slept much last night. This morning she is awake and is very pressured and somewhat fragmented and screaming at times but also able to answer and relevant manner to selective questions. She refused to her oral risperidone yesterday but is willing to take the injection of risperidone so we will continue with risperidone const 37.5 mg every 2 weeks and continue with her Depakote in liquid form and and utilize Haldol and Benadryl either by mouth or injection to bring some sedation and rest for the patient. HISTORY:. VITAL SIGNS: See below. NEW TEST RESULTS:. CURRENT MEDICATIONS: See below. MENTAL STATUS EXAMINATION: Patient is a 70-year old female, who is awake but agitated and a little labile. Speech: Is fragmented with relevant response at times. Language skills are poor. Thought processes including: Pressured and fragmented. Thought content: Difficult to comprehend. Abstract reasoning, and computation: Poor. Description of associations: Pressured and flighty. Description of abnormal or psychotic thoughts: She denies any hallucination and is not expressing any delusional thinking but is very labile and irritable. Judgment: Poor. Insight: Poor. Orientation: Oriented to the place and person. Recent and remote memory: Difficult to evaluate. Attention span and concentration:. Language:. Fund of knowledge:. Mood: More irritable and anxious. Affect: Labile. DIAGNOSES: 1.. Schizoaffective disorder 2.. 3.. ASSESSMENT: Continue with the current medicine and supportive therapy she is quite agitated again and did not sleep last night MANAGEMENT PLAN:. Discontinue oral risperidone and continue with risperidone long-acting injection TIME SPENT: 20 minutes. Vital Signs Vital Signs Date Time Temp Pulse Resp B/P (MAP) Pulse Ox O2 Delivery O2 Flow Rate FiO2 12/22/20 09:34 78 123/59 12/22/20 06:26 97.5 20 100 Room Air Current Medications Current Medications Medications (Trade) Dose Ordered Sig/Marisa Route PRN Reason Start Time Stop Time Status Last Admin Dose Admin Acetaminophen (Tylenol Tab) 650 mg Q6HP PRN PO HEADACHE or MILD DISCOMFORT 11/11/20 19:40 12/06/20 17:06 Al Hydrox/Mg Hydrox/Simethicone (Mylanta) 30 ml Q4HP PRN PO HEARTBURN/INDIGESTION 6/18/21 19:40 Amlodipine Besylate (Norvasc) 5 mg DAILY PO 11/12/20 09:00 12/22/20 09:34 Benztropine Mesylate (Cogentin) 1 mg BID PO 12/13/20 09:00 12/22/20 09:34 Ceftriaxone Sodium (Rocephin) 1 gm Q24H IM 12/08/20 18:00 12/15/20 17:59 DC 12/14/20 17:36 Cephalexin Monohydrate (Keflex) 500 mg Q6H PO 12/04/20 18:00 12/08/20 18:01 DC 12/05/20 12:51 Diphenhydramine HCl (Benadryl) 50 mg BID@0800,1999 IM 12/15/20 08:00 12/15/20 10:58 DC Diphenhydramine HCl (Benadryl) 50 mg BID@00,1999 IM 12/15/20 20:00 12/16/20 10:47 DC 12/15/20 22:04 Diphenhydramine HCl (Benadryl) 50 mg Q6HP PRN PO AGITATION 12/03/20 12:25 12/20/20 09:24 Diphenhydramine HCl (Benadryl) 50 mg QHS IM 12/16/20 10:45 12/16/20 10:50 DC Diphenhydramine HCl (Benadryl) 50 mg QHS IM 12/16/20 21:00 12/21/20 23:53 Diphenhydramine HCl (Benadryl) 50 mg STAT STAT IM 12/19/20 07:40 12/19/20 07:42 DC 12/19/20 07:56 Divalproex Sodium (Depakote Sprinkles) 500 mg BID PO 11/13/20 09:00 11/25/20 11:02 DC 11/25/20 09:30 Divalproex Sodium (Depakote Er) 250 mg DAILY PO 11/26/20 09:00 12/02/20 07:14 DC 12/01/20 09:55 Divalproex Sodium (Depakote Er) 500 mg BID PO 11/13/20 09:00 11/13/20 09:00 DC Divalproex Sodium (Depakote Er) 500 mg DAILY PO 12/04/20 09:00 12/06/20 10:27 DC 12/05/20 12:43 Divalproex Sodium (Depakote Er) 500 mg DAILY PO 12/02/20 09:00 12/04/20 08:53 DC Divalproex Sodium (Depakote Er) 500 mg QHS PO 11/25/20 21:00 11/30/20 22:07 DC 11/29/20 21:19 Divalproex Sodium (Depakote Er) 500 mg QHS PO 11/30/20 22:10 12/06/20 10:27 DC 12/04/20 22:00 Docusate Sodium (Colace) 100 mg BID PO 11/12/20 09:00 12/22/20 09:45 Enoxaparin Sodium (Lovenox) 40 mg DAILY SC 12/21/20 09:00 12/22/20 09:33 Haloperidol (Haldol) 5 mg BID@0800,2000 IM 12/15/20 20:00 12/16/20 10:47 DC 12/15/20 22:04 Haloperidol (Haldol) 5 mg Q6HP PRN PO AGITATION 12/03/20 12:25 12/20/20 09:24 Haloperidol (Haldol) 5 mg QHS IM 12/16/20 10:45 12/16/20 10:50 DC Haloperidol (Haldol) 5 mg QHS IM 12/16/20 21:00 12/21/20 23:53 Haloperidol (Haldol) 5 mg STAT STAT IM 12/19/20 07:40 12/19/20 07:42 DC 12/19/20 07:56 Ketorolac Tromethamine (ToRADol) 30 mg BIDP PRN IM PAIN LEVEL 6-10 12/14/20 09:20 12/17/20 08:45 Ketorolac Tromethamine (ToRADol) 30 mg Q6H PRN IM PAIN LEVEL 5-10 12/14/20 09:45 12/14/20 09:47 DC Levetiracetam (Keppra Oral Solution) 500 mg BID PO 11/12/20 09:00 12/22/20 09:34 Levothyroxine Sodium (Synthroid) 100 mcg DAILY@06 PO 11/12/20 06:00 12/22/20 05:08 Lorazepam (Ativan) 0.5 mg BID PO 11/17/20 09:00 11/18/20 08:31 DC 11/17/20 19:56 Lorazepam (Ativan) 1 mg BID PO 11/14/20 09:00 11/17/20 07:27 DC 11/16/20 20:33 Lorazepam (Ativan) 1 mg QHS PO 12/01/20 21:00 12/06/20 10:27 DC 12/04/20 21:59 Lorazepam (Ativan) 1 mg STAT STAT IM 12/17/20 15:43 12/17/20 15:45 DC 12/17/20 16:04 Lorazepam (Ativan) 1 mg TID PO 12/06/20 09:00 12/12/20 08:49 DC 12/11/20 10:31 Magnesium Hydroxide (Milk Of Magnesia) 30 ml DAILYPRN PRN PO CONSTIPATION 11/11/20 19:40 Miscellaneous (Unresolved Clarification Entry) SEE LABEL COMMENTS DAILY XX 12/11/20 09:00 12/13/20 09:04 DC Nystatin (Mycostatin Powder, Nystop) APPLY TO AREAS OF RASH BIDP PRN TOP RASH 12/15/20 18:45 Oxycodone/ Acetaminophen (Percocet 5mg/ 325mg Tablet) 1 tab Q6HP PRN PO MODERATE PAIN (PS 5-7) 12/13/20 16:10 12/18/20 19:59 Pantoprazole Sodium (Protonix) 40 mg DAILY PO 11/12/20 09:00 12/22/20 09:34 Polyethylene Glycol (Miralax) 1 pkt DAILY PO 11/12/20 09:00 12/22/20 09:36 Quetiapine Fumarate (SEROquel) 100 mg QHS PO 11/13/20 21:00 11/18/20 08:31 DC 11/17/20 19:56 Quetiapine Fumarate (SEROquel) 100 mg QHS PO 11/23/20 21:00 12/01/20 09:14 DC 11/29/20 21:19 Quetiapine Fumarate (SEROquel) 200 mg QHS PO 12/01/20 21:00 12/20/20 21:55 Risperidone (RisperDAL Consta) 37.5 mg Q14D@09 IM 12/07/20 09:00 12/07/20 10:54 DC Risperidone (RisperDAL Consta) 37.5 mg Q14D@09 IM 12/08/20 09:00 12/22/20 09:46 Risperidone (RisperDAL Consta) 37.5 mg Q14D@09 IM 12/22/20 09:30 UNV Risperidone (RisperDAL LIQUID) 4 mg QHS PO 11/12/20 21:00 11/14/20 08:57 DC 11/12/20 21:48 Risperidone (RisperDAL) 2 mg BID PO 11/14/20 09:00 11/21/20 09:34 DC 11/20/20 21:02 Risperidone (RisperDAL) 2 mg QHS PO 11/21/20 21:00 11/23/20 08:57 DC 11/22/20 20:41 Risperidone (RisperDAL) 2 mg QHS PO 12/13/20 21:00 12/22/20 09:28 DC 12/20/20 21:55 Risperidone (RisperDAL) 3 mg QHS PO 11/23/20 21:00 11/28/20 09:00 DC 11/27/20 21:58 Risperidone (RisperDAL) 4 mg DAILY@1700 PO 12/07/20 17:00 12/13/20 09:03 DC Risperidone (RisperDAL) 4 mg QHS PO 11/28/20 21:00 12/06/20 10:27 DC 12/04/20 22:01 Risperidone (RisperDAL) 4 mg QPM PO 12/06/20 17:00 12/07/20 09:42 DC 12/06/20 20:49 Sodium Chloride ([place] Saline Nasal Gel) APPLY SMALL RADHIKA... Q4HP PRN NA NASAL DRYNESS 12/02/20 10:50 Trazodone HCl (Desyrel) 50 mg QHSP PRN PO INSOMNIA 11/11/20 19:40 12/18/20 19:59 Valproic Acid (Depakene Solution) 500 mg 0800,1600 PO 12/06/20 08:00 12/22/20 09:36 Valproic Acid (Depakene) 500 mg BID PO 12/06/20 09:00 Cancel Allergies Coded Allergies: Sulfa (Sulfonamide Antibiotics) (Verified Allergy, Unknown, 01/21/19) aspirin (Verified Allergy, Unknown, 01/21/19) MARISOL HURD M.D. Dec 22, 2020 09:55
[2020-12-22] MEDS: ACETAMINOPHEN TAB 650MG DOSE (2X325MG) PO PRN ×2 (14:32→21:56)
[2020-12-22 17:54] VITALS: BP 128/60
[2020-12-22] MEDS: QUEtiapine FUMARATE 200 MG TAB PO SCH (21:23)
[2020-12-22] MEDS: diphenhydrAMINE 50MG/ML VIAL (J1200) IM SCH (21:55)
[2020-12-22] MEDS: HALOPERIDOL 5MG/ML VIAL (J1630 PER 1) IM SCH (21:55)
[2020-12-23] MEDS: LEVOTHYROXINE 100MCG TABLET (0.1MG) PO SCH (06:48)
[2020-12-23] MEDS: BENZTROPINE 1 MG TAB PO SCH ×2 (09:00→21:00)
[2020-12-23] MEDS: amLODIPine 5 MG TAB PO SCH (09:00)
[2020-12-23] MEDS: PANTOPRAZOLE 40MG TAB (PROTONIX) PO SCH (09:00)
[2020-12-23] MEDS: DOCUSATE SODIUM 100MG CAPSULE PO SCH ×2 (09:00→21:00)
[2020-12-23] MEDS: MIRALAX *UNIT DOSE* 17GM PACKET PO SCH (09:00)
[2020-12-23] MEDS: levETIRAcetam ORAL SOLUTION 500 MG/5 ML UDC PO SCH ×2 (09:00→21:00)
[2020-12-23] MEDS: VALPROIC ACID 250MG/5ML SOL ORAL SYRINGE *DRAW UP EXACT DOSE PO SCH ×2 (09:11→16:18)
[2020-12-23] MEDS: ENOXAPARIN 40MG/0.4ML SYRINGE (J1650 PER 10MG) SC SCH (09:11)
[2020-12-23 09:12] LABS: HEMATOCRIT 37.3 % (36.0-47.0); HEMOGLOBIN 11.8 g/dl (12.0-15.5); MEAN CORPUSCULAR HEMOGLOBIN 29.2 pg (27.0-33.0); MEAN CORPUSCULAR HGB CONC 31.6 g/dl (32.0-36.5); MEAN CORPUSCULAR VOLUME 92.3 fl (80.0-96.0); PLATELET COUNT, AUTOMATED 210 10^3/uL (150-450); RED BLOOD COUNT 4.04 10^6/uL (4.00-5.40); WHITE BLOOD COUNT 3.4 10^3/uL (4.0-10.0)
[2020-12-23] MEDS ORDERED: HALOPERIDOL 5MG/ML VIAL (J1630 PER 1) IM ONE (09:35)
[2020-12-23] MEDS ORDERED: diphenhydrAMINE 50MG/ML VIAL (J1200) IM ONE (09:35)
--- NOTE | 2020-12-23 09:48 | MHIPNPDOC ---
[facility] Progress Note Progress Note DATE OF SERVICE: 12/23/20 He was able to take almost all of oral medications yesterday and received 1 dose of the Haldol and Benadryl by injection and then slept through the night. This morning she is awake alert and is in much better contact uncontrolled. She is not screaming and able to answer questions relevantly. She is asking the name of the MD also knows that she has been in hospital for a month and is denying any serious pain on her right wrist. She received risperidone injection without any incident and is cooperating with the Depakote and seems to show significant improvement today. Her overall mental status has been quite fluctuating lately especially depending on her compliance with oral medications. We will try to stabilize with long-acting risperidone and Depakote and continue to use Haldol and Benadryl to control frequent agitation. HISTORY:. VITAL SIGNS: See below. NEW TEST RESULTS:. CURRENT MEDICATIONS: See below. MENTAL STATUS EXAMINATION: Patient is a 70-year old female, who is alert awake. Speech: Is more relevant. Language skills are still poor. Thought processes including: More productive. Thought content: Not expressing any gross delusional thinking. Abstract reasoning, and computation: Poor. Description of associations: Better organized. Description of abnormal or psychotic thoughts: No gross delusional ideas expressed. Judgment: Poor. Insight: Poor. Orientation: Oriented to the place and person. Recent and remote memory: No gross impairment. Attention span and concentration: Poor. Language:. Fund of knowledge:. Mood: Not as angry irritable. Affect: [Less agitated. DIAGNOSES: 1.. Schizoaffective disorder 2.. 3.. ASSESSMENT: Continues to show fluctuating mental status and behavior MANAGEMENT PLAN: Try to stabilize with current treatment. TIME SPENT: 20 minutes. Vital Signs Vital Signs Date Time Temp Pulse Resp B/P (MAP) Pulse Ox O2 Delivery O2 Flow Rate FiO2 12/22/20 17:54 98.2 79 17 128/60 (82) 12/22/20 06:26 100 Room Air Laboratory Data 24H Labs Laboratory Tests 2 12/23/20 08:28: Nucleated Red Blood Cells % (auto) 0.0 CBC/BMP Laboratory Tests 12/23/20 08:28 Current Medications Current Medications Medications (Trade) Dose Ordered Sig/Marisa Route PRN Reason Start Time Stop Time Status Last Admin Dose Admin Acetaminophen (Tylenol Tab) 650 mg Q6HP PRN PO HEADACHE or MILD DISCOMFORT 11/11/20 19:40 12/22/20 21:56 Al Hydrox/Mg Hydrox/Simethicone (Mylanta) 30 ml Q4HP PRN PO HEARTBURN/INDIGESTION 11/11/20 19:40 Amlodipine Besylate (Norvasc) 5 mg DAILY PO 11/12/20 09:00 12/22/20 09:34 Benztropine Mesylate (Cogentin) 1 mg BID PO 12/13/20 09:00 12/22/20 21:23 Ceftriaxone Sodium (Rocephin) 1 gm Q24H IM 12/08/20 18:00 12/15/20 17:59 DC 12/14/20 17:36 Cephalexin Monohydrate (Keflex) 500 mg Q6H PO 12/04/20 18:00 12/08/20 18:01 DC 12/05/20 12:51 Diphenhydramine HCl (Benadryl) 50 mg BID@08,1999 IM 12/15/20 08:00 12/15/20 10:58 DC Diphenhydramine HCl (Benadryl) 50 mg BID@0800,1999 IM 12/15/20 20:00 12/16/20 10:47 DC 12/15/20 22:04 Diphenhydramine HCl (Benadryl) 50 mg Q6HP PRN PO AGITATION 12/03/20 12:25 12/20/20 09:24 Diphenhydramine HCl (Benadryl) 50 mg QHS IM 12/16/20 10:45 12/16/20 10:50 DC Diphenhydramine HCl (Benadryl) 50 mg QHS IM 12/16/20 21:00 12/22/20 21:55 Diphenhydramine HCl (Benadryl) 50 mg STAT STAT IM 12/19/20 07:40 12/19/20 07:42 DC 12/19/20 07:56 Divalproex Sodium (Depakote Sprinkles) 500 mg BID PO 11/13/20 09:00 11/25/20 11:02 DC 11/25/20 09:30 Divalproex Sodium (Depakote Er) 250 mg DAILY PO 11/26/20 09:00 12/02/20 07:14 DC 12/01/20 09:55 Divalproex Sodium (Depakote Er) 500 mg BID PO 11/13/20 09:00 11/13/20 09:00 DC Divalproex Sodium (Depakote Er) 500 mg DAILY PO 12/04/20 09:00 12/06/20 10:27 DC 12/05/20 12:43 Divalproex Sodium (Depakote Er) 500 mg DAILY PO 12/02/20 09:00 12/04/20 08:53 DC Divalproex Sodium (Depakote Er) 500 mg QHS PO 11/25/20 21:00 11/30/20 22:07 DC 11/29/20 21:19 Divalproex Sodium (Depakote Er) 500 mg QHS PO 11/30/20 22:10 12/06/20 10:27 DC 12/04/20 22:00 Docusate Sodium (Colace) 100 mg BID PO 11/12/20 09:00 12/22/20 21:23 Enoxaparin Sodium (Lovenox) 40 mg DAILY SC 12/21/20 09:00 12/23/20 09:11 Haloperidol (Haldol) 5 mg BID@0800,2000 IM 12/15/20 20:00 12/16/20 10:47 DC 12/15/20 22:04 Haloperidol (Haldol) 5 mg Q6HP PRN PO AGITATION 12/03/20 12:25 12/20/20 09:24 Haloperidol (Haldol) 5 mg QHS IM 12/16/20 10:45 12/16/20 10:50 DC Haloperidol (Haldol) 5 mg QHS IM 12/16/20 21:00 12/22/20 21:55 Haloperidol (Haldol) 5 mg STAT STAT IM 12/19/20 07:40 12/19/20 07:42 DC 12/19/20 07:56 Ketorolac Tromethamine (ToRADol) 30 mg BIDP PRN IM PAIN LEVEL 6-10 12/14/20 09:20 12/17/20 08:45 Ketorolac Tromethamine (ToRADol) 30 mg Q6H PRN IM PAIN LEVEL 5-10 12/14/20 09:45 12/14/20 09:47 DC Levetiracetam (Keppra Oral Solution) 500 mg BID PO 11/12/20 09:00 12/22/20 21:23 Levothyroxine Sodium (Synthroid) 100 mcg DAILY@06 PO 11/12/20 06:00 12/23/20 06:48 Lorazepam (Ativan) 0.5 mg BID PO 11/17/20 09:00 11/18/20 08:31 DC 11/17/20 19:56 Lorazepam (Ativan) 1 mg BID PO 11/14/20 09:00 11/17/20 07:27 DC 11/16/20 20:33 Lorazepam (Ativan) 1 mg QHS PO 12/01/20 21:00 12/06/20 10:27 DC 12/04/20 21:59 Lorazepam (Ativan) 1 mg STAT STAT IM 12/17/20 15:43 12/17/20 15:45 DC 12/17/20 16:04 Lorazepam (Ativan) 1 mg TID PO 12/06/20 09:00 12/12/20 08:49 DC 12/11/20 10:31 Magnesium Hydroxide (Milk Of Magnesia) 30 ml DAILYPRN PRN PO CONSTIPATION 11/11/20 19:40 Miscellaneous (Unresolved Clarification Entry) SEE LABEL COMMENTS DAILY XX 12/11/20 09:00 12/13/20 09:04 DC Nystatin (Mycostatin Powder, Nystop) APPLY TO AREAS OF RASH BIDP PRN TOP RASH 12/15/20 18:45 Oxycodone/ Acetaminophen (Percocet 5mg/ 325mg Tablet) 1 tab Q6HP PRN PO MODERATE PAIN (PS 5-7) 12/13/20 16:10 12/18/20 19:59 Pantoprazole Sodium (Protonix) 40 mg DAILY PO 11/12/20 09:00 12/22/20 09:34 Polyethylene Glycol (Miralax) 1 pkt DAILY PO 11/12/20 09:00 12/22/20 09:36 Quetiapine Fumarate (SEROquel) 100 mg QHS PO 11/13/20 21:00 11/18/20 08:31 DC 11/17/20 19:56 Quetiapine Fumarate (SEROquel) 100 mg QHS PO 11/23/20 21:00 12/01/20 09:14 DC 11/29/20 21:19 Quetiapine Fumarate (SEROquel) 200 mg QHS PO 12/01/20 21:00 12/22/20 21:23 Risperidone (RisperDAL Consta) 37.5 mg Q14D@09 IM 12/07/20 09:00 12/07/20 10:54 DC Risperidone (RisperDAL Consta) 37.5 mg Q14D@09 IM 12/08/20 09:00 12/22/20 09:46 Risperidone (RisperDAL Consta) 37.5 mg Q14D@09 IM 12/22/20 09:30 UNV Risperidone (RisperDAL LIQUID) 4 mg QHS PO 11/12/20 21:00 11/14/20 08:57 DC 11/12/20 21:48 Risperidone (RisperDAL) 2 mg BID PO 11/14/20 09:00 11/21/20 09:34 DC 11/20/20 21:02 Risperidone (RisperDAL) 2 mg QHS PO 11/21/20 21:00 11/23/20 08:57 DC 11/22/20 20:41 Risperidone (RisperDAL) 2 mg QHS PO 12/13/20 21:00 12/22/20 09:28 DC 12/20/20 21:55 Risperidone (RisperDAL) 3 mg QHS PO 11/23/20 21:00 11/28/20 09:00 DC 11/27/20 21:58 Risperidone (RisperDAL) 4 mg DAILY@1700 PO 12/07/20 17:00 12/13/20 09:03 DC Risperidone (RisperDAL) 4 mg QHS PO 11/28/20 21:00 12/06/20 10:27 DC 12/04/20 22:01 Risperidone (RisperDAL) 4 mg QPM PO 12/06/20 17:00 12/07/20 09:42 DC 12/06/20 20:49 Sodium Chloride ([place] Saline Nasal Gel) APPLY SMALL RADHIKA... Q4HP PRN NA NASAL DRYNESS 12/02/20 10:50 Trazodone HCl (Desyrel) 50 mg QHSP PRN PO INSOMNIA 11/11/20 19:40 12/18/20 19:59 Valproic Acid (Depakene Solution) 500 mg 0800,1600 PO 12/06/20 08:00 12/23/20 09:11 Valproic Acid (Depakene) 500 mg BID PO 12/06/20 09:00 Cancel Allergies Coded Allergies: Sulfa (Sulfonamide Antibiotics) (Verified Allergy, Unknown, 01/21/19) aspirin (Verified Allergy, Unknown, 01/21/19) MARISOL HURD M.D. Dec 23, 2020 09:48
[2020-12-23 18:00] VITALS: BP 156/68
[2020-12-23] MEDS: HALOPERIDOL 5MG/ML VIAL (J1630 PER 1) IM SCH (20:59)
[2020-12-23] MEDS: traZODone 50 MG TAB PO PRN (21:00)
[2020-12-23] MEDS: diphenhydrAMINE 50MG/ML VIAL (J1200) IM SCH (21:00)
[2020-12-23] MEDS: QUEtiapine FUMARATE 200 MG TAB PO SCH (21:00)
[2020-12-24] MEDS: LEVOTHYROXINE 100MCG TABLET (0.1MG) PO SCH (06:00)
[2020-12-24] MEDS: ENOXAPARIN 40MG/0.4ML SYRINGE (J1650 PER 10MG) SC SCH (09:58)
[2020-12-24] MEDS: PANTOPRAZOLE 40MG TAB (PROTONIX) PO SCH (09:59)
[2020-12-24] MEDS: levETIRAcetam ORAL SOLUTION 500 MG/5 ML UDC PO SCH ×2 (09:59→20:59)
[2020-12-24] MEDS: DOCUSATE SODIUM 100MG CAPSULE PO SCH ×2 (09:59→20:59)
[2020-12-24] MEDS: BENZTROPINE 1 MG TAB PO SCH ×2 (09:59→20:59)
[2020-12-24] MEDS: haloperidoL 5 MG TAB PO PRN (09:59)
[2020-12-24] MEDS: VALPROIC ACID 250MG/5ML SOL ORAL SYRINGE *DRAW UP EXACT DOSE PO SCH ×2 (09:59→16:00)
[2020-12-24] MEDS: MIRALAX *UNIT DOSE* 17GM PACKET PO SCH (10:00)
[2020-12-24] MEDS: amLODIPine 5 MG TAB PO SCH (10:29)
[2020-12-24] MEDS: HALOPERIDOL 5MG/ML VIAL (J1630 PER 1) IM SCH (20:59)
[2020-12-24] MEDS: traZODone 50 MG TAB PO PRN (20:59)
[2020-12-24] MEDS: QUEtiapine FUMARATE 200 MG TAB PO SCH (20:59)
[2020-12-24] MEDS: diphenhydrAMINE 50MG/ML VIAL (J1200) IM SCH (20:59)
[2020-12-25] MEDS: NYSTATIN 100,000 UNITS/GM TOPICAL PWD 15 GM TOP PRN ×2 (00:15→22:46)
[2020-12-25] MEDS: DOCUSATE SODIUM 100MG CAPSULE PO SCH ×2 (09:00→20:47)
[2020-12-25] MEDS: MIRALAX *UNIT DOSE* 17GM PACKET PO SCH (09:00)
[2020-12-25] MEDS: VALPROIC ACID 250MG/5ML SOL ORAL SYRINGE *DRAW UP EXACT DOSE PO SCH ×2 (09:51→15:53)
[2020-12-25] MEDS: ENOXAPARIN 40MG/0.4ML SYRINGE (J1650 PER 10MG) SC SCH (09:57)
[2020-12-25] MEDS: levETIRAcetam ORAL SOLUTION 500 MG/5 ML UDC PO SCH ×2 (09:57→20:47)
[2020-12-25] MEDS: PANTOPRAZOLE 40MG TAB (PROTONIX) PO SCH (09:58)
[2020-12-25] MEDS: BENZTROPINE 1 MG TAB PO SCH ×2 (09:58→20:47)
[2020-12-25] MEDS: LEVOTHYROXINE 100MCG TABLET (0.1MG) PO SCH (09:58)
[2020-12-25] MEDS: amLODIPine 5 MG TAB PO SCH (10:19)
[2020-12-25 16:52] VITALS: BP 122/60
--- NOTE | 2020-12-25 17:14 | MHIPNPDOC ---
[facility] Progress Note Progress Note DATE OF SERVICE: 12/24/20 LATE ENTRY: 12/25/2020 Evaluated Janice on the November. Today Bailey has been difficult to staff, she has been yelling too. When I went to se her in her room she was not very happy. she had a different ttituted compared to one week ago when I zoomed with her. Mental Status Exam: she was alert, sitting on her lounge chair, wearing hospital clothes. She didn't speak to me, she made sounds with her throat as if she could not speak. it was not possible to assess her thought process for this reason. When I asked her if she was depressed, she nodded "no" and when I asked her if she was angry she indicated ayes with her head. She refused to talk after that moment but she kept making noises and looked at me with her eyes wide opened almost as if she was scared. She was not violent or aggressive, she did not attempt to hurt me. she didn't display dangerous behavior at this tie but she is uncoperative. her mood is irritable and affect is congruent with it. Insight and Judgment are poor Assessment: At this pint it looks as if she has regressed. I believe she may get a secondary gain from this type of behavior. she might be afraid of being discharged and being alone in her apartment, she apparently has been afraid or concerned of covid, as she told me last time. I do believe that she has a mental illness but I also think that she feels safe here and maybe for that reason, she is not getting better, maybe she doesn't want to go home, although this is also the result of mental illness, of feeling vulnerable and scared. time Spent: 12 minutes Vital Signs Vital Signs Date Time Temp Pulse Resp B/P (MAP) Pulse Ox O2 Delivery O2 Flow Rate FiO2 12/25/20 16:52 98.5 83 16 122/60 (80) 12/23/20 18:00 96 Room Air Current Medications Current Medications Medications (Trade) Dose Ordered Sig/Marisa Route PRN Reason Start Time Stop Time Status Last Admin Dose Admin Acetaminophen (Tylenol Tab) 650 mg Q6HP PRN PO HEADACHE or MILD DISCOMFORT 11/11/20 19:40 12/22/20 21:56 Al Hydrox/Mg Hydrox/Simethicone (Mylanta) 30 ml Q4HP PRN PO HEARTBURN/INDIGESTION 11/11/20 19:40 Amlodipine Besylate (Norvasc) 5 mg DAILY PO 11/12/20 09:00 12/25/20 10:19 Benztropine Mesylate (Cogentin) 1 mg BID PO 12/13/20 09:00 12/25/20 09:58 Ceftriaxone Sodium (Rocephin) 1 gm Q24H IM 12/08/20 18:00 12/15/20 17:59 DC 12/14/20 17:36 Cephalexin Monohydrate (Keflex) 500 mg Q6H PO 12/04/20 18:00 12/08/20 18:01 DC 12/05/20 12:51 Diphenhydramine HCl (Benadryl) 50 mg BID@0800,1999 IM 12/15/20 08:00 12/15/20 10:58 DC Diphenhydramine HCl (Benadryl) 50 mg BID@799,1999 IM 12/15/20 20:00 12/16/20 10:47 DC 12/15/20 22:04 Diphenhydramine HCl (Benadryl) 50 mg Q6HP PRN PO AGITATION 12/03/20 12:25 12/20/20 09:24 Diphenhydramine HCl (Benadryl) 50 mg QHS IM 12/16/20 10:45 12/16/20 10:50 DC Diphenhydramine HCl (Benadryl) 50 mg QHS IM 12/16/20 21:00 12/24/20 20:59 Diphenhydramine HCl (Benadryl) 50 mg STAT STAT IM 12/19/20 07:40 12/19/20 07:42 DC 12/19/20 07:56 Divalproex Sodium (Depakote Sprinkles) 500 mg BID PO 11/13/20 09:00 11/25/20 11:02 DC 11/25/20 09:30 Divalproex Sodium (Depakote Er) 250 mg DAILY PO 11/26/20 09:00 12/02/20 07:14 DC 12/01/20 09:55 Divalproex Sodium (Depakote Er) 500 mg BID PO 11/13/20 09:00 11/13/20 09:00 DC Divalproex Sodium (Depakote Er) 500 mg DAILY PO 12/04/20 09:00 12/06/20 10:27 DC 12/05/20 12:43 Divalproex Sodium (Depakote Er) 500 mg DAILY PO 12/02/20 09:00 12/04/20 08:53 DC Divalproex Sodium (Depakote Er) 500 mg QHS PO 11/25/20 21:00 11/30/20 22:07 DC 11/29/20 21:19 Divalproex Sodium (Depakote Er) 500 mg QHS PO 11/30/20 22:10 12/06/20 10:27 DC 12/04/20 22:00 Docusate Sodium (Colace) 100 mg BID PO 11/12/20 09:00 12/24/20 09:59 Enoxaparin Sodium (Lovenox) 40 mg DAILY SC 12/21/20 09:00 12/25/20 09:57 Haloperidol (Haldol) 5 mg BID@0800,2000 IM 12/15/20 20:00 12/16/20 10:47 DC 12/15/20 22:04 Haloperidol (Haldol) 5 mg Q6HP PRN PO AGITATION 12/03/20 12:25 12/24/20 09:59 Haloperidol (Haldol) 5 mg QHS IM 12/16/20 10:45 12/16/20 10:50 DC Haloperidol (Haldol) 5 mg QHS IM 12/16/20 21:00 12/24/20 20:59 Haloperidol (Haldol) 5 mg STAT STAT IM 12/19/20 07:40 12/19/20 07:42 DC 12/19/20 07:56 Ketorolac Tromethamine (ToRADol) 30 mg BIDP PRN IM PAIN LEVEL 6-10 12/14/20 09:20 12/17/20 08:45 Ketorolac Tromethamine (ToRADol) 30 mg Q6H PRN IM PAIN LEVEL 5-10 12/14/20 09:45 12/14/20 09:47 DC Levetiracetam (Keppra Oral Solution) 500 mg BID PO 11/12/20 09:00 12/25/20 09:57 Levothyroxine Sodium (Synthroid) 100 mcg DAILY@06 PO 11/12/20 06:00 12/25/20 09:58 Lorazepam (Ativan) 0.5 mg BID PO 11/17/20 09:00 11/18/20 08:31 DC 11/17/20 19:56 Lorazepam (Ativan) 1 mg BID PO 11/14/20 09:00 11/17/20 07:27 DC 11/16/20 20:33 Lorazepam (Ativan) 1 mg QHS PO 12/01/20 21:00 12/06/20 10:27 DC 12/04/20 21:59 Lorazepam (Ativan) 1 mg STAT STAT IM 12/17/20 15:43 12/17/20 15:45 DC 12/17/20 16:04 Lorazepam (Ativan) 1 mg TID PO 12/06/20 09:00 12/12/20 08:49 DC 12/11/20 10:31 Magnesium Hydroxide (Milk Of Magnesia) 30 ml DAILYPRN PRN PO CONSTIPATION 11/11/20 19:40 Miscellaneous (Unresolved Clarification Entry) SEE LABEL COMMENTS DAILY XX 12/11/20 09:00 12/13/20 09:04 DC Miscellaneous (Unresolved Clarification Entry) SEE LABEL COMMENTS DAILY XX 12/25/20 09:00 12/25/20 12:41 DC Nystatin (Mycostatin Powder, Nystop) APPLY TO AREAS OF RASH BIDP PRN TOP RASH 12/15/20 18:45 12/25/20 00:15 Oxycodone/ Acetaminophen (Percocet 5mg/ 325mg Tablet) 1 tab Q6HP PRN PO MODERATE PAIN (PS 5-7) 12/13/20 16:10 12/25/20 12:40 DC 12/18/20 19:59 Pantoprazole Sodium (Protonix) 40 mg DAILY PO 11/12/20 09:00 12/25/20 09:58 Polyethylene Glycol (Miralax) 1 pkt DAILY PO 11/12/20 09:00 12/24/20 10:00 Quetiapine Fumarate (SEROquel) 100 mg QHS PO 11/13/20 21:00 11/18/20 08:31 DC 11/17/20 19:56 Quetiapine Fumarate (SEROquel) 100 mg QHS PO 11/23/20 21:00 12/01/20 09:14 DC 11/29/20 21:19 Quetiapine Fumarate (SEROquel) 200 mg QHS PO 12/01/20 21:00 12/24/20 20:59 Risperidone (RisperDAL Consta) 37.5 mg Q14D@09 IM 12/07/20 09:00 12/07/20 10:54 DC Risperidone (RisperDAL Consta) 37.5 mg Q14D@09 IM 12/08/20 09:00 12/22/20 09:46 Risperidone (RisperDAL Consta) 37.5 mg Q14D@09 IM 12/22/20 09:30 UNV Risperidone (RisperDAL LIQUID) 4 mg QHS PO 11/12/20 21:00 11/14/20 08:57 DC 11/12/20 21:48 Risperidone (RisperDAL) 2 mg BID PO 11/14/20 09:00 11/21/20 09:34 DC 11/20/20 21:02 Risperidone (RisperDAL) 2 mg QHS PO 11/21/20 21:00 11/23/20 08:57 DC 11/22/20 20:41 Risperidone (RisperDAL) 2 mg QHS PO 12/13/20 21:00 12/22/20 09:28 DC 12/20/20 21:55 Risperidone (RisperDAL) 3 mg QHS PO 11/23/20 21:00 11/28/20 09:00 DC 11/27/20 21:58 Risperidone (RisperDAL) 4 mg DAILY@1700 PO 12/07/20 17:00 12/13/20 09:03 DC Risperidone (RisperDAL) 4 mg QHS PO 11/28/20 21:00 12/06/20 10:27 DC 12/04/20 22:01 Risperidone (RisperDAL) 4 mg QPM PO 12/06/20 17:00 12/07/20 09:42 DC 12/06/20 20:49 Sodium Chloride ([place] Saline Nasal Gel) APPLY SMALL RADHIKA... Q4HP PRN NA NASAL DRYNESS 12/02/20 10:50 Trazodone HCl (Desyrel) 50 mg QHSP PRN PO INSOMNIA 11/11/20 19:40 12/24/20 20:59 Valproic Acid (Depakene Solution) 500 mg 0800,1600 PO 12/06/20 08:00 12/25/20 15:53 Valproic Acid (Depakene) 500 mg BID PO 12/06/20 09:00 Cancel Allergies Coded Allergies: Sulfa (Sulfonamide Antibiotics) (Verified Allergy, Unknown, 01/21/19) aspirin (Verified Allergy, Unknown, 01/21/19) FLORIDA HART MD Dec 25, 2020 17:14
--- NOTE | 2020-12-25 17:29 | MHIPNPDOC ---
[facility] Progress Note Progress Note DATE OF SERVICE: 12/25/20 HISTORY: Janice has been difficult to engage. she's still not talking, she is making noises and using her hands to point at objects. She wanted to take a look at my Hospital tag and she flipped it over to take a look at both sides. She was eating at that time and when I asked her if she liked what she ate, she seemed to get upset, pointed at her sandwich with meatballs and made a gesture with her head, indicating she didn't like them. Then she pointed at another dish indicating she disliked it alos and kept eating something else. I prompted her to speak to me but she didn't do it. VITAL SIGNS: See below. NEW TEST RESULTS:. CURRENT MEDICATIONS: See below. MENTAL STATUS EXAMINATION: Patient is a 70-year old female, who is alert and awake, wearing hospital clothes, sitting on her lounge chair Speech: She didn't want to speak today, she made noises only Language skills are poor. Thought processes including: Could not assess because she is not speaking, although I think she is thinking logically because she wanted to check my name on my Hospital tag, as if she wanted to verify who I was Thought content: Unable to assess at this time, she was not talking but she doesn't seem to be paranoid, she did not have any dangerous or violent behavior while I was in the room with her. Abstract reasoning, and computation: Unable to assess Description of associations: She doesn't seem psychotic Description of abnormal or psychotic thoughts: Unable to assss but she doesn't appear paranoid Judgment: Poor. Insight: Poor. Orientation: Unable to assess, she is not speaking Recent and remote memory: Unable to assess Attention span and concentration: Poor Fund of knowledge: Unable to assess Mood: irritable, but not really angry Affect: Congruent with mood DIAGNOSES: 1.. Schizoaffective disorder ASSESSMENT: yesterday and today looks as if she has regressed, but she is not violent or aggressive. Unconsciously, I think she has the need to feel she is being taken care of, maybe she has felt deprived for a long time, maybe she has felt very anxious. She has been more consistent with her medications. Will continue to monitor for safety. MANAGEMENT PLAN: Continue current treatment plan TIME SPENT: 15 minutes. Vital Signs Vital Signs Date Time Temp Pulse Resp B/P (MAP) Pulse Ox O2 Delivery O2 Flow Rate FiO2 12/25/20 16:52 98.5 83 16 122/60 (80) 12/23/20 18:00 96 Room Air Current Medications Current Medications Medications (Trade) Dose Ordered Sig/Marisa Route PRN Reason Start Time Stop Time Status Last Admin Dose Admin Acetaminophen (Tylenol Tab) 650 mg Q6HP PRN PO HEADACHE or MILD DISCOMFORT 11/11/20 19:40 12/22/20 21:56 Al Hydrox/Mg Hydrox/Simethicone (Mylanta) 30 ml Q4HP PRN PO HEARTBURN/INDIGESTION 11/11/20 19:40 Amlodipine Besylate (Norvasc) 5 mg DAILY PO 11/12/20 09:00 12/25/20 10:19 Benztropine Mesylate (Cogentin) 1 mg BID PO 12/13/20 09:00 12/25/20 09:58 Ceftriaxone Sodium (Rocephin) 1 gm Q24H IM 12/08/20 18:00 12/15/20 17:59 DC 12/14/20 17:36 Cephalexin Monohydrate (Keflex) 500 mg Q6H PO 12/04/20 18:00 12/08/20 18:01 DC 12/05/20 12:51 Diphenhydramine HCl (Benadryl) 50 mg BID@0800,1999 IM 12/15/20 08:00 12/15/20 10:58 DC Diphenhydramine HCl (Benadryl) 50 mg BID@0800,1999 IM 12/15/20 20:00 12/16/20 10:47 DC 12/15/20 22:04 Diphenhydramine HCl (Benadryl) 50 mg Q6HP PRN PO AGITATION 12/03/20 12:25 12/20/20 09:24 Diphenhydramine HCl (Benadryl) 50 mg QHS IM 12/16/20 10:45 12/16/20 10:50 DC Diphenhydramine HCl (Benadryl) 50 mg QHS IM 12/16/20 21:00 12/24/20 20:59 Diphenhydramine HCl (Benadryl) 50 mg STAT STAT IM 12/19/20 07:40 12/19/20 07:42 DC 12/19/20 07:56 Divalproex Sodium (Depakote Sprinkles) 500 mg BID PO 11/13/20 09:00 11/25/20 11:02 DC 11/25/20 09:30 Divalproex Sodium (Depakote Er) 250 mg DAILY PO 11/26/20 09:00 12/02/20 07:14 DC 12/01/20 09:55 Divalproex Sodium (Depakote Er) 500 mg BID PO 11/13/20 09:00 11/13/20 09:00 DC Divalproex Sodium (Depakote Er) 500 mg DAILY PO 12/04/20 09:00 12/06/20 10:27 DC 12/05/20 12:43 Divalproex Sodium (Depakote Er) 500 mg DAILY PO 12/02/20 09:00 12/04/20 08:53 DC Divalproex Sodium (Depakote Er) 500 mg QHS PO 11/25/20 21:00 11/30/20 22:07 DC 11/29/20 21:19 Divalproex Sodium (Depakote Er) 500 mg QHS PO 11/30/20 22:10 12/06/20 10:27 DC 12/04/20 22:00 Docusate Sodium (Colace) 100 mg BID PO 11/12/20 09:00 12/24/20 09:59 Enoxaparin Sodium (Lovenox) 40 mg DAILY SC 12/21/20 09:00 12/25/20 09:57 Haloperidol (Haldol) 5 mg BID@0800,2000 IM 12/15/20 20:00 12/16/20 10:47 DC 12/15/20 22:04 Haloperidol (Haldol) 5 mg Q6HP PRN PO AGITATION 12/03/20 12:25 12/24/20 09:59 Haloperidol (Haldol) 5 mg QHS IM 12/16/20 10:45 12/16/20 10:50 DC Haloperidol (Haldol) 5 mg QHS IM 12/16/20 21:00 12/24/20 20:59 Haloperidol (Haldol) 5 mg STAT STAT IM 12/19/20 07:40 12/19/20 07:42 DC 12/19/20 07:56 Ketorolac Tromethamine (ToRADol) 30 mg BIDP PRN IM PAIN LEVEL 6-10 12/14/20 09:20 12/17/20 08:45 Ketorolac Tromethamine (ToRADol) 30 mg Q6H PRN IM PAIN LEVEL 5-10 12/14/20 09:45 12/14/20 09:47 DC Levetiracetam (Keppra Oral Solution) 500 mg BID PO 11/12/20 09:00 12/25/20 09:57 Levothyroxine Sodium (Synthroid) 100 mcg DAILY@06 PO 11/12/20 06:00 12/25/20 09:58 Lorazepam (Ativan) 0.5 mg BID PO 11/17/20 09:00 11/18/20 08:31 DC 11/17/20 19:56 Lorazepam (Ativan) 1 mg BID PO 11/14/20 09:00 11/17/20 07:27 DC 11/16/20 20:33 Lorazepam (Ativan) 1 mg QHS PO 12/01/20 21:00 12/06/20 10:27 DC 12/04/20 21:59 Lorazepam (Ativan) 1 mg STAT STAT IM 12/17/20 15:43 12/17/20 15:45 DC 12/17/20 16:04 Lorazepam (Ativan) 1 mg TID PO 12/06/20 09:00 12/12/20 08:49 DC 12/11/20 10:31 Magnesium Hydroxide (Milk Of Magnesia) 30 ml DAILYPRN PRN PO CONSTIPATION 11/11/20 19:40 Miscellaneous (Unresolved Clarification Entry) SEE LABEL COMMENTS DAILY XX 12/11/20 09:00 12/13/20 09:04 DC Miscellaneous (Unresolved Clarification Entry) SEE LABEL COMMENTS DAILY XX 12/25/20 09:00 12/25/20 12:41 DC Nystatin (Mycostatin Powder, Nystop) APPLY TO AREAS OF RASH BIDP PRN TOP RASH 12/15/20 18:45 12/25/20 00:15 Oxycodone/ Acetaminophen (Percocet 5mg/ 325mg Tablet) 1 tab Q6HP PRN PO MODERATE PAIN (PS 5-7) 12/13/20 16:10 12/25/20 12:40 DC 12/18/20 19:59 Pantoprazole Sodium (Protonix) 40 mg DAILY PO 11/12/20 09:00 12/25/20 09:58 Polyethylene Glycol (Miralax) 1 pkt DAILY PO 11/12/20 09:00 12/24/20 10:00 Quetiapine Fumarate (SEROquel) 100 mg QHS PO 11/13/20 21:00 11/18/20 08:31 DC 11/17/20 19:56 Quetiapine Fumarate (SEROquel) 100 mg QHS PO 11/23/20 21:00 12/01/20 09:14 DC 11/29/20 21:19 Quetiapine Fumarate (SEROquel) 200 mg QHS PO 12/01/20 21:00 12/24/20 20:59 Risperidone (RisperDAL Consta) 37.5 mg Q14D@09 IM 12/07/20 09:00 12/07/20 10:54 DC Risperidone (RisperDAL Consta) 37.5 mg Q14D@09 IM 12/08/20 09:00 12/22/20 09:46 Risperidone (RisperDAL Consta) 37.5 mg Q14D@09 IM 12/22/20 09:30 UNV Risperidone (RisperDAL LIQUID) 4 mg QHS PO 11/12/20 21:00 11/14/20 08:57 DC 11/12/20 21:48 Risperidone (RisperDAL) 2 mg BID PO 11/14/20 09:00 11/21/20 09:34 DC 11/20/20 21:02 Risperidone (RisperDAL) 2 mg QHS PO 11/21/20 21:00 11/23/20 08:57 DC 11/22/20 20:41 Risperidone (RisperDAL) 2 mg QHS PO 12/13/20 21:00 12/22/20 09:28 DC 12/20/20 21:55 Risperidone (RisperDAL) 3 mg QHS PO 11/23/20 21:00 11/28/20 09:00 DC 11/27/20 21:58 Risperidone (RisperDAL) 4 mg DAILY@1700 PO 12/07/20 17:00 12/13/20 09:03 DC Risperidone (RisperDAL) 4 mg QHS PO 11/28/20 21:00 12/06/20 10:27 DC 12/04/20 22:01 Risperidone (RisperDAL) 4 mg QPM PO 12/06/20 17:00 12/07/20 09:42 DC 12/06/20 20:49 Sodium Chloride ([place] Saline Nasal Gel) APPLY SMALL RADHIKA... Q4HP PRN NA NASAL DRYNESS 12/02/20 10:50 Trazodone HCl (Desyrel) 50 mg QHSP PRN PO INSOMNIA 11/11/20 19:40 12/24/20 20:59 Valproic Acid (Depakene Solution) 500 mg 0800,1600 PO 12/06/20 08:00 12/25/20 15:53 Valproic Acid (Depakene) 500 mg BID PO 12/06/20 09:00 Cancel Allergies Coded Allergies: Sulfa (Sulfonamide Antibiotics) (Verified Allergy, Unknown, 01/21/19) aspirin (Verified Allergy, Unknown, 01/21/19) FLORIDA HART MD Dec 25, 2020 17:29
[2020-12-25] MEDS: QUEtiapine FUMARATE 200 MG TAB PO SCH (20:47)
[2020-12-25] MEDS: HALOPERIDOL 5MG/ML VIAL (J1630 PER 1) IM SCH (22:23)
[2020-12-25] MEDS: diphenhydrAMINE 50MG/ML VIAL (J1200) IM SCH (22:23)
[2020-12-26] MEDS: LEVOTHYROXINE 100MCG TABLET (0.1MG) PO SCH (06:36)
[2020-12-26 07:46] LABS: HEMATOCRIT 32.8 % (36.0-47.0); HEMOGLOBIN 10.4 g/dl (12.0-15.5); MEAN CORPUSCULAR HEMOGLOBIN 29.2 pg (27.0-33.0); MEAN CORPUSCULAR HGB CONC 31.7 g/dl (32.0-36.5); MEAN CORPUSCULAR VOLUME 92.1 fl (80.0-96.0); PLATELET COUNT, AUTOMATED 206 10^3/uL (150-450); RED BLOOD COUNT 3.56 10^6/uL (4.00-5.40); WHITE BLOOD COUNT 3.8 10^3/uL (4.0-10.0)
[2020-12-26] MEDS: MIRALAX *UNIT DOSE* 17GM PACKET PO SCH (09:00)
--- NOTE | 2020-12-26 09:14 | MHIPNPDOC ---
[facility] Progress Note Progress Note DATE OF SERVICE: 12/26/20 She has been able to cooperate with her oral medications through the weekend but her mental status remained quite labile and no significant improvement. She slept much better last night and this morning she is alert awake and is in a little better control. She is not screaming and she is not agitated however her speech is still quite fragmented with shrieking voice and not completing sentences. She appears better oriented recognized MD and even able to give some coherent response to the questions regarding her discharge plan. We are hoping that she will show more improvement with consistent medication compliance. HISTORY:. VITAL SIGNS: See below. NEW TEST RESULTS:. CURRENT MEDICATIONS: See below. MENTAL STATUS EXAMINATION: Patient is a 70-year old female, who is in no acute distress. Speech: Is relevant at times but not productive. Language skills are poor. Thought processes including: Fragmented. Thought content: No gross delusional thoughts expressed. Abstract reasoning, and computation: Poor. Description of associations: Still disorganized. Description of abnormal or psychotic thoughts: No gross delusional thinking but showing very regressed behavior. Judgment: Poor. Insight: poor]. Orientation: Appears oriented to the place and person. Recent and remote memory: Does not appear to have any serious deficit. Attention span and concentration: Poor. Language:. Fund of knowledge:. Mood: Still quite irritable. Affect: Labile. DIAGNOSES: 1.. Schizoaffective disorder 2.. 3.. ASSESSMENT: More compliant with oral medicine MANAGEMENT PLAN: Needs stabilization with the current treatment. TIME SPENT: 20 minutes. Vital Signs Vital Signs Date Time Temp Pulse Resp B/P (MAP) Pulse Ox O2 Delivery O2 Flow Rate FiO2 12/25/20 16:52 98.5 83 16 122/60 (80) 12/23/20 18:00 96 Room Air Laboratory Data 24H Labs Laboratory Tests 2 12/26/20 06:56: Nucleated Red Blood Cells % (auto) 0.0 CBC/BMP Laboratory Tests 12/26/20 06:56 Current Medications Current Medications Medications (Trade) Dose Ordered Sig/Marisa Route PRN Reason Start Time Stop Time Status Last Admin Dose Admin Acetaminophen (Tylenol Tab) 650 mg Q6HP PRN PO HEADACHE or MILD DISCOMFORT 11/11/20 19:40 12/22/20 21:56 Al Hydrox/Mg Hydrox/Simethicone (Mylanta) 30 ml Q4HP PRN PO HEARTBURN/INDIGESTION 11/11/20 19:40 Amlodipine Besylate (Norvasc) 5 mg DAILY PO 11/12/20 09:00 12/25/20 10:19 Benztropine Mesylate (Cogentin) 1 mg BID PO 12/13/20 09:00 12/25/20 20:47 Ceftriaxone Sodium (Rocephin) 1 gm Q24H IM 12/08/20 18:00 12/15/20 17:59 DC 12/14/20 17:36 Cephalexin Monohydrate (Keflex) 500 mg Q6H PO 12/04/20 18:00 12/08/20 18:01 DC 12/05/20 12:51 Diphenhydramine HCl (Benadryl) 50 mg BID@08,1999 IM 12/15/20 08:00 12/15/20 10:58 DC Diphenhydramine HCl (Benadryl) 50 mg BID@799,1999 IM 12/15/20 20:00 12/16/20 10:47 DC 12/15/20 22:04 Diphenhydramine HCl (Benadryl) 50 mg Q6HP PRN PO AGITATION 12/03/20 12:25 12/20/20 09:24 Diphenhydramine HCl (Benadryl) 50 mg QHS IM 12/16/20 10:45 12/16/20 10:50 DC Diphenhydramine HCl (Benadryl) 50 mg QHS IM 12/16/20 21:00 12/25/20 22:23 Diphenhydramine HCl (Benadryl) 50 mg STAT STAT IM 12/19/20 07:40 12/19/20 07:42 DC 12/19/20 07:56 Divalproex Sodium (Depakote Sprinkles) 500 mg BID PO 11/13/20 09:00 11/25/20 11:02 DC 11/25/20 09:30 Divalproex Sodium (Depakote Er) 250 mg DAILY PO 11/26/20 09:00 12/02/20 07:14 DC 12/01/20 09:55 Divalproex Sodium (Depakote Er) 500 mg BID PO 11/13/20 09:00 11/13/20 09:00 DC Divalproex Sodium (Depakote Er) 500 mg DAILY PO 12/04/20 09:00 12/06/20 10:27 DC 12/05/20 12:43 Divalproex Sodium (Depakote Er) 500 mg DAILY PO 12/02/20 09:00 12/04/20 08:53 DC Divalproex Sodium (Depakote Er) 500 mg QHS PO 11/25/20 21:00 11/30/20 22:07 DC 11/29/20 21:19 Divalproex Sodium (Depakote Er) 500 mg QHS PO 11/30/20 22:10 12/06/20 10:27 DC 12/04/20 22:00 Docusate Sodium (Colace) 100 mg BID PO 11/12/20 09:00 12/25/20 20:47 Enoxaparin Sodium (Lovenox) 40 mg DAILY SC 12/21/20 09:00 12/25/20 09:57 Haloperidol (Haldol) 5 mg BID@0800,2000 IM 12/15/20 20:00 12/16/20 10:47 DC 12/15/20 22:04 Haloperidol (Haldol) 5 mg Q6HP PRN PO AGITATION 12/03/20 12:25 12/24/20 09:59 Haloperidol (Haldol) 5 mg QHS IM 12/16/20 10:45 12/16/20 10:50 DC Haloperidol (Haldol) 5 mg QHS IM 12/16/20 21:00 12/25/20 22:23 Haloperidol (Haldol) 5 mg STAT STAT IM 12/19/20 07:40 12/19/20 07:42 DC 12/19/20 07:56 Ketorolac Tromethamine (ToRADol) 30 mg BIDP PRN IM PAIN LEVEL 6-10 12/14/20 09:20 12/17/20 08:45 Ketorolac Tromethamine (ToRADol) 30 mg Q6H PRN IM PAIN LEVEL 5-10 12/14/20 09:45 12/14/20 09:47 DC Levetiracetam (Keppra Oral Solution) 500 mg BID PO 11/12/20 09:00 12/25/20 20:47 Levothyroxine Sodium (Synthroid) 100 mcg DAILY@06 PO 11/12/20 06:00 12/26/20 06:36 Lorazepam (Ativan) 0.5 mg BID PO 11/17/20 09:00 11/18/20 08:31 DC 11/17/20 19:56 Lorazepam (Ativan) 1 mg BID PO 11/14/20 09:00 11/17/20 07:27 DC 11/16/20 20:33 Lorazepam (Ativan) 1 mg QHS PO 12/01/20 21:00 12/06/20 10:27 DC 12/04/20 21:59 Lorazepam (Ativan) 1 mg STAT STAT IM 12/17/20 15:43 12/17/20 15:45 DC 12/17/20 16:04 Lorazepam (Ativan) 1 mg TID PO 12/06/20 09:00 12/12/20 08:49 DC 12/11/20 10:31 Magnesium Hydroxide (Milk Of Magnesia) 30 ml DAILYPRN PRN PO CONSTIPATION 11/11/20 19:40 Miscellaneous (Unresolved Clarification Entry) SEE LABEL COMMENTS DAILY XX 12/11/20 09:00 12/13/20 09:04 DC Miscellaneous (Unresolved Clarification Entry) SEE LABEL COMMENTS DAILY XX 12/25/20 09:00 12/25/20 12:41 DC Nystatin (Mycostatin Powder, Nystop) APPLY TO AREAS OF RASH BIDP PRN TOP RASH 12/15/20 18:45 12/25/20 22:46 Oxycodone/ Acetaminophen (Percocet 5mg/ 325mg Tablet) 1 tab Q6HP PRN PO MODERATE PAIN (PS 5-7) 12/13/20 16:10 12/25/20 12:40 DC 12/18/20 19:59 Pantoprazole Sodium (Protonix) 40 mg DAILY PO 11/12/20 09:00 12/25/20 09:58 Polyethylene Glycol (Miralax) 1 pkt DAILY PO 11/12/20 09:00 12/24/20 10:00 Quetiapine Fumarate (SEROquel) 100 mg QHS PO 11/13/20 21:00 11/18/20 08:31 DC 11/17/20 19:56 Quetiapine Fumarate (SEROquel) 100 mg QHS PO 11/23/20 21:00 12/01/20 09:14 DC 11/29/20 21:19 Quetiapine Fumarate (SEROquel) 200 mg QHS PO 12/01/20 21:00 12/25/20 20:47 Risperidone (RisperDAL Consta) 37.5 mg Q14D@09 IM 12/07/20 09:00 12/07/20 10:54 DC Risperidone (RisperDAL Consta) 37.5 mg Q14D@09 IM 12/08/20 09:00 12/22/20 09:46 Risperidone (RisperDAL Consta) 37.5 mg Q14D@09 IM 12/22/20 09:30 UNV Risperidone (RisperDAL LIQUID) 4 mg QHS PO 11/12/20 21:00 11/14/20 08:57 DC 11/12/20 21:48 Risperidone (RisperDAL) 2 mg BID PO 11/14/20 09:00 11/21/20 09:34 DC 11/20/20 21:02 Risperidone (RisperDAL) 2 mg QHS PO 11/21/20 21:00 11/23/20 08:57 DC 11/22/20 20:41 Risperidone (RisperDAL) 2 mg QHS PO 12/13/20 21:00 12/22/20 09:28 DC 12/20/20 21:55 Risperidone (RisperDAL) 3 mg QHS PO 11/23/20 21:00 11/28/20 09:00 DC 11/27/20 21:58 Risperidone (RisperDAL) 4 mg DAILY@1700 PO 12/07/20 17:00 12/13/20 09:03 DC Risperidone (RisperDAL) 4 mg QHS PO 11/28/20 21:00 12/06/20 10:27 DC 12/04/20 22:01 Risperidone (RisperDAL) 4 mg QPM PO 12/06/20 17:00 12/07/20 09:42 DC 12/06/20 20:49 Sodium Chloride ([place] Saline Nasal Gel) APPLY SMALL RADHIKA... Q4HP PRN NA NASAL DRYNESS 12/02/20 10:50 Trazodone HCl (Desyrel) 50 mg QHSP PRN PO INSOMNIA 11/11/20 19:40 12/24/20 20:59 Valproic Acid (Depakene Solution) 500 mg 0800,1600 PO 12/06/20 08:00 12/25/20 15:53 Valproic Acid (Depakene) 500 mg BID PO 12/06/20 09:00 Cancel Allergies Coded Allergies: Sulfa (Sulfonamide Antibiotics) (Verified Allergy, Unknown, 01/21/19) aspirin (Verified Allergy, Unknown, 01/21/19) MARISOL HURD M.D. Dec 26, 2020 09:14
[2020-12-26] MEDS: VALPROIC ACID 250MG/5ML SOL ORAL SYRINGE *DRAW UP EXACT DOSE PO SCH ×2 (09:50→16:52)
[2020-12-26] MEDS: DOCUSATE SODIUM 100MG CAPSULE PO SCH ×2 (09:51→21:46)
[2020-12-26] MEDS: ENOXAPARIN 40MG/0.4ML SYRINGE (J1650 PER 10MG) SC SCH (09:51)
[2020-12-26] MEDS: BENZTROPINE 1 MG TAB PO SCH ×2 (09:51→21:46)
[2020-12-26] MEDS: PANTOPRAZOLE 40MG TAB (PROTONIX) PO SCH (09:51)
[2020-12-26] MEDS: levETIRAcetam ORAL SOLUTION 500 MG/5 ML UDC PO SCH ×2 (09:53→21:46)
[2020-12-26] MEDS: amLODIPine 5 MG TAB PO SCH (10:07)
[2020-12-26 17:37] VITALS: BP 119/58
[2020-12-26] MEDS: HALOPERIDOL 5MG/ML VIAL (J1630 PER 1) IM SCH (21:02)
[2020-12-26] MEDS: diphenhydrAMINE 50MG/ML VIAL (J1200) IM SCH (21:02)
[2020-12-26] MEDS: QUEtiapine FUMARATE 200 MG TAB PO SCH (21:46)
[2020-12-27] MEDS: LEVOTHYROXINE 100MCG TABLET (0.1MG) PO SCH (06:28)
[2020-12-27] MEDS: MIRALAX *UNIT DOSE* 17GM PACKET PO SCH ×2 (09:00→09:41)
[2020-12-27] MEDS: BENZTROPINE 1 MG TAB PO SCH ×2 (09:41→19:53)
[2020-12-27] MEDS: VALPROIC ACID 250MG/5ML SOL ORAL SYRINGE *DRAW UP EXACT DOSE PO SCH ×2 (09:42→16:50)
[2020-12-27] MEDS: amLODIPine 5 MG TAB PO SCH (09:42)
[2020-12-27] MEDS: PANTOPRAZOLE 40MG TAB (PROTONIX) PO SCH (09:42)
[2020-12-27] MEDS: DOCUSATE SODIUM 100MG CAPSULE PO SCH ×2 (09:42→19:53)
[2020-12-27] MEDS: ENOXAPARIN 40MG/0.4ML SYRINGE (J1650 PER 10MG) SC SCH (10:03)
[2020-12-27] MEDS: levETIRAcetam ORAL SOLUTION 500 MG/5 ML UDC PO SCH ×2 (10:03→19:52)
--- NOTE | 2020-12-27 10:45 | MHIPNPDOC ---
[facility] Progress Note Progress Note DATE OF SERVICE: 12/27/20 Patient is alert awake this morning and slightly more responsive. She is still speaking and fragmented and childish fashion and not able to give much coherent response. She is walking with the encouragement and does not appear to be in any acute physical distress. She is more compliant with oral medications and not as agitated or bizarre so we will continue with the current treatment for further stabilization HISTORY:. VITAL SIGNS: See below. NEW TEST RESULTS:. CURRENT MEDICATIONS: See below. MENTAL STATUS EXAMINATION: Patient is a 70]-year old female, who is awake and in no acute physical distress. Speech: Is relevant at times. Language skills are poor. Thought processes including: Fragmented. Thought content: Difficult to evaluate. Abstract reasoning, and computation: Poor. Description of associations: Disorganized. Description of abnormal or psychotic thoughts: Remains very regressed and disorganized. Judgment: Poor. Insight: Poor. Orientation: Appears oriented. Recent and remote memory: Difficult to evaluate. Attention span and concentration: Poor. Language:. Fund of knowledge:. Mood: Not as angry or agitated. Affect: Labile. DIAGNOSES: 1.. Schizoaffective disorder 2.. 3.. ASSESSMENT: More compliant with oral medicine and not as agitated MANAGEMENT PLAN: Continue with the current treatment. TIME SPENT: 50 minutes. Vital Signs Vital Signs Date Time Temp Pulse Resp B/P (MAP) Pulse Ox O2 Delivery O2 Flow Rate FiO2 12/27/20 09:42 93 128/60 12/26/20 17:37 98.0 16 98 Room Air Current Medications Current Medications Medications (Trade) Dose Ordered Sig/Marisa Route PRN Reason Start Time Stop Time Status Last Admin Dose Admin Acetaminophen (Tylenol Tab) 650 mg Q6HP PRN PO HEADACHE or MILD DISCOMFORT 11/11/20 19:40 12/22/20 21:56 Al Hydrox/Mg Hydrox/Simethicone (Mylanta) 30 ml Q4HP PRN PO HEARTBURN/INDIGESTION 11/11/20 19:40 Amlodipine Besylate (Norvasc) 5 mg DAILY PO 11/12/20 09:00 12/27/20 09:42 Benztropine Mesylate (Cogentin) 1 mg BID PO 12/13/20 09:00 12/27/20 09:41 Ceftriaxone Sodium (Rocephin) 1 gm Q24H IM 12/08/20 18:00 12/15/20 17:59 DC 12/14/20 17:36 Cephalexin Monohydrate (Keflex) 500 mg Q6H PO 12/04/20 18:00 12/08/20 18:01 DC 12/05/20 12:51 Diphenhydramine HCl (Benadryl) 50 mg BID@08,1999 IM 12/15/20 08:00 12/15/20 10:58 DC Diphenhydramine HCl (Benadryl) 50 mg BID@08,1999 IM 12/15/20 20:00 12/16/20 10:47 DC 12/15/20 22:04 Diphenhydramine HCl (Benadryl) 50 mg Q6HP PRN PO AGITATION 12/03/20 12:25 12/20/20 09:24 Diphenhydramine HCl (Benadryl) 50 mg QHS IM 12/16/20 10:45 12/16/20 10:50 DC Diphenhydramine HCl (Benadryl) 50 mg QHS IM 12/16/20 21:00 12/26/20 21:02 Diphenhydramine HCl (Benadryl) 50 mg STAT STAT IM 12/19/20 07:40 12/19/20 07:42 DC 12/19/20 07:56 Divalproex Sodium (Depakote Sprinkles) 500 mg BID PO 11/13/20 09:00 11/25/20 11:02 DC 11/25/20 09:30 Divalproex Sodium (Depakote Er) 250 mg DAILY PO 11/26/20 09:00 12/02/20 07:14 DC 12/01/20 09:55 Divalproex Sodium (Depakote Er) 500 mg BID PO 11/13/20 09:00 11/13/20 09:00 DC Divalproex Sodium (Depakote Er) 500 mg DAILY PO 12/04/20 09:00 12/06/20 10:27 DC 12/05/20 12:43 Divalproex Sodium (Depakote Er) 500 mg DAILY PO 12/02/20 09:00 12/04/20 08:53 DC Divalproex Sodium (Depakote Er) 500 mg QHS PO 11/25/20 21:00 11/30/20 22:07 DC 11/29/20 21:19 Divalproex Sodium (Depakote Er) 500 mg QHS PO 11/30/20 22:10 12/06/20 10:27 DC 12/04/20 22:00 Docusate Sodium (Colace) 100 mg BID PO 11/12/20 09:00 12/27/20 09:42 Enoxaparin Sodium (Lovenox) 40 mg DAILY SC 12/21/20 09:00 12/27/20 10:03 Haloperidol (Haldol) 5 mg BID@0800,2000 IM 12/15/20 20:00 12/16/20 10:47 DC 12/15/20 22:04 Haloperidol (Haldol) 5 mg Q6HP PRN PO AGITATION 12/03/20 12:25 12/24/20 09:59 Haloperidol (Haldol) 5 mg QHS IM 12/16/20 10:45 12/16/20 10:50 DC Haloperidol (Haldol) 5 mg QHS IM 12/16/20 21:00 12/26/20 21:02 Haloperidol (Haldol) 5 mg STAT STAT IM 12/19/20 07:40 12/19/20 07:42 DC 12/19/20 07:56 Ketorolac Tromethamine (ToRADol) 30 mg BIDP PRN IM PAIN LEVEL 6-10 12/14/20 09:20 12/17/20 08:45 Ketorolac Tromethamine (ToRADol) 30 mg Q6H PRN IM PAIN LEVEL 5-10 12/14/20 09:45 12/14/20 09:47 DC Levetiracetam (Keppra Oral Solution) 500 mg BID PO 11/12/20 09:00 12/27/20 10:03 Levothyroxine Sodium (Synthroid) 100 mcg DAILY@06 PO 11/12/20 06:00 12/27/20 06:28 Lorazepam (Ativan) 0.5 mg BID PO 11/17/20 09:00 11/18/20 08:31 DC 11/17/20 19:56 Lorazepam (Ativan) 1 mg BID PO 11/14/20 09:00 11/17/20 07:27 DC 11/16/20 20:33 Lorazepam (Ativan) 1 mg QHS PO 12/01/20 21:00 12/06/20 10:27 DC 12/04/20 21:59 Lorazepam (Ativan) 1 mg STAT STAT IM 12/17/20 15:43 12/17/20 15:45 DC 12/17/20 16:04 Lorazepam (Ativan) 1 mg TID PO 12/06/20 09:00 12/12/20 08:49 DC 12/11/20 10:31 Magnesium Hydroxide (Milk Of Magnesia) 30 ml DAILYPRN PRN PO CONSTIPATION 11/11/20 19:40 Miscellaneous (Unresolved Clarification Entry) SEE LABEL COMMENTS DAILY XX 12/11/20 09:00 12/13/20 09:04 DC Miscellaneous (Unresolved Clarification Entry) SEE LABEL COMMENTS DAILY XX 12/25/20 09:00 12/25/20 12:41 DC Miscellaneous (Unresolved Clarification Entry) SEE LABEL COMMENTS DAILY XX 12/26/20 09:00 12/26/20 10:48 DC Nystatin (Mycostatin Powder, Nystop) APPLY TO AREAS OF RASH BIDP PRN TOP RASH 12/15/20 18:45 12/25/20 22:46 Oxycodone/ Acetaminophen (Percocet 5mg/ 325mg Tablet) 1 tab Q6HP PRN PO MODERATE PAIN (PS 5-7) 12/13/20 16:10 12/25/20 12:40 DC 12/18/20 19:59 Pantoprazole Sodium (Protonix) 40 mg DAILY PO 11/12/20 09:00 12/27/20 09:42 Polyethylene Glycol (Miralax) 1 pkt DAILY PO 11/12/20 09:00 12/24/20 10:00 Quetiapine Fumarate (SEROquel) 100 mg QHS PO 11/13/20 21:00 11/18/20 08:31 DC 11/17/20 19:56 Quetiapine Fumarate (SEROquel) 100 mg QHS PO 11/23/20 21:00 12/01/20 09:14 DC 11/29/20 21:19 Quetiapine Fumarate (SEROquel) 200 mg QHS PO 12/01/20 21:00 12/26/20 21:46 Risperidone (RisperDAL Consta) 37.5 mg Q14D@09 IM 12/07/20 09:00 12/07/20 10:54 DC Risperidone (RisperDAL Consta) 37.5 mg Q14D@09 IM 12/08/20 09:00 12/22/20 09:46 Risperidone (RisperDAL Consta) 37.5 mg Q14D@09 IM 12/22/20 09:30 UNV Risperidone (RisperDAL LIQUID) 4 mg QHS PO 11/12/20 21:00 11/14/20 08:57 DC 11/12/20 21:48 Risperidone (RisperDAL) 2 mg BID PO 11/14/20 09:00 11/21/20 09:34 DC 11/20/20 21:02 Risperidone (RisperDAL) 2 mg QHS PO 11/21/20 21:00 11/23/20 08:57 DC 11/22/20 20:41 Risperidone (RisperDAL) 2 mg QHS PO 12/13/20 21:00 12/22/20 09:28 DC 12/20/20 21:55 Risperidone (RisperDAL) 3 mg QHS PO 11/23/20 21:00 11/28/20 09:00 DC 11/27/20 21:58 Risperidone (RisperDAL) 4 mg DAILY@1700 PO 12/07/20 17:00 12/13/20 09:03 DC Risperidone (RisperDAL) 4 mg QHS PO 11/28/20 21:00 12/06/20 10:27 DC 12/04/20 22:01 Risperidone (RisperDAL) 4 mg QPM PO 12/06/20 17:00 12/07/20 09:42 DC 12/06/20 20:49 Sodium Chloride ([place] Saline Nasal Gel) APPLY SMALL RADHIKA... Q4HP PRN NA NASAL DRYNESS 12/02/20 10:50 Trazodone HCl (Desyrel) 50 mg QHSP PRN PO INSOMNIA 11/11/20 19:40 12/24/20 20:59 Valproic Acid (Depakene Solution) 500 mg 0800,1600 PO 12/06/20 08:00 12/27/20 09:42 Valproic Acid (Depakene) 500 mg BID PO 12/06/20 09:00 Cancel Allergies Coded Allergies: Sulfa (Sulfonamide Antibiotics) (Verified Allergy, Unknown, 01/21/19) aspirin (Verified Allergy, Unknown, 01/21/19) MARISOL HURD M.D. Dec 27, 2020 10:45
[2020-12-27 16:26] VITALS: BP 120/62
[2020-12-27 16:31] VITALS: BP 141/66
[2020-12-27] MEDS: HALOPERIDOL 5MG/ML VIAL (J1630 PER 1) IM SCH (19:52)
[2020-12-27] MEDS: ACETAMINOPHEN TAB 650MG DOSE (2X325MG) PO PRN (19:52)
[2020-12-27] MEDS: diphenhydrAMINE 50MG/ML VIAL (J1200) IM SCH (19:52)
[2020-12-27] MEDS: QUEtiapine FUMARATE 200 MG TAB PO SCH (19:53)
[2020-12-28] MEDS: LEVOTHYROXINE 100MCG TABLET (0.1MG) PO SCH (06:00)
[2020-12-28 06:58] VITALS: BP 136/72
[2020-12-28] MEDS: ENOXAPARIN 40MG/0.4ML SYRINGE (J1650 PER 10MG) SC SCH (07:51)
[2020-12-28] MEDS: VALPROIC ACID 250MG/5ML SOL ORAL SYRINGE *DRAW UP EXACT DOSE PO SCH ×2 (07:51→16:00)
--- NOTE | 2020-12-28 08:47 | MHIPNPDOC ---
[facility] Progress Note Progress Note DATE OF SERVICE: 12/28/20 The patient slept about 6 hours last night and this morning she is awake alert and more responsive. She is able to recognize the MD with the greetings. Although she is still grunting and mumbling at times she is able to answer some questions and relevant manner. She knows she is in hospital she knows she has been in hospital over a month and is asking where she will be going. She is not showing any tremor or rigidity and is in no acute physical distress and does not appear to be in any pain. She is much less agitated and not as demanding but still showing quite regressed behavior. She has been receiving Haldol and Benadryl by injection at night which has helped her to have consistent sleep pattern which seems to have contributed to her improvement. I will plan to use the nighttime Haldol and Benadryl for another 5 to 7 days to fully stabilize her sleep pattern and agitation and reevaluate. HISTORY:. VITAL SIGNS: See below. NEW TEST RESULTS:. CURRENT MEDICATIONS: See below. MENTAL STATUS EXAMINATION: Patient is a 70-year old female, who is alert awake. Speech: Is mumbling and fragmented. Language skills are poor but is more coherent at times. Thought processes including: Remains fragmented. Thought content: Not expressing any gross delusional thinking. Abstract reasoning, and computation: Poor. Description of associations: More productive and better organized. Description of abnormal or psychotic thoughts: Does not appear to be actively hallucinating.. Judgment: Poor. Insight: poor]. Orientation: Oriented to the place and person. Recent and remote memory: Does not appear to have gross impairment. Attention span and concentration: Poor. Language:. Fund of knowledge:. Mood: Not as angry irritable. Affect: Labile and regressed. DIAGNOSES: 1.. Schizoaffective disorder 2.. 3.. ASSESSMENT: Showing improvement in her agitation and sleep pattern MANAGEMENT PLAN: Continue with the current treatment. TIME SPENT: 20 minutes. Vital Signs Vital Signs Date Time Temp Pulse Resp B/P (MAP) Pulse Ox O2 Delivery O2 Flow Rate FiO2 12/28/20 08:03 Room Air 12/28/20 06:58 98.8 94 18 136/72 (93) 98 Current Medications Current Medications Medications (Trade) Dose Ordered Sig/Marisa Route PRN Reason Start Time Stop Time Status Last Admin Dose Admin Acetaminophen (Tylenol Tab) 650 mg Q6HP PRN PO HEADACHE or MILD DISCOMFORT 11/11/20 19:40 12/27/20 19:52 Al Hydrox/Mg Hydrox/Simethicone (Mylanta) 30 ml Q4HP PRN PO HEARTBURN/INDIGESTION 11/11/20 19:40 Amlodipine Besylate (Norvasc) 5 mg DAILY PO 11/12/20 09:00 12/27/20 09:42 Benztropine Mesylate (Cogentin) 1 mg BID PO 12/13/20 09:00 12/27/20 19:53 Ceftriaxone Sodium (Rocephin) 1 gm Q24H IM 12/08/20 18:00 12/15/20 17:59 DC 12/14/20 17:36 Cephalexin Monohydrate (Keflex) 500 mg Q6H PO 12/04/20 18:00 12/08/20 18:01 DC 12/05/20 12:51 Diphenhydramine HCl (Benadryl) 50 mg BID@0800,1999 IM 12/15/20 08:00 12/15/20 10:58 DC Diphenhydramine HCl (Benadryl) 50 mg BID@0800,1999 IM 12/15/20 20:00 12/16/20 10:47 DC 12/15/20 22:04 Diphenhydramine HCl (Benadryl) 50 mg Q6HP PRN PO AGITATION 12/03/20 12:25 12/20/20 09:24 Diphenhydramine HCl (Benadryl) 50 mg QHS IM 12/16/20 10:45 12/16/20 10:50 DC Diphenhydramine HCl (Benadryl) 50 mg QHS IM 12/16/20 21:00 12/27/20 19:52 Diphenhydramine HCl (Benadryl) 50 mg STAT STAT IM 12/19/20 07:40 12/19/20 07:42 DC 12/19/20 07:56 Divalproex Sodium (Depakote Sprinkles) 500 mg BID PO 11/13/20 09:00 11/25/20 11:02 DC 11/25/20 09:30 Divalproex Sodium (Depakote Er) 250 mg DAILY PO 11/26/20 09:00 12/02/20 07:14 DC 12/01/20 09:55 Divalproex Sodium (Depakote Er) 500 mg BID PO 11/13/20 09:00 11/13/20 09:00 DC Divalproex Sodium (Depakote Er) 500 mg DAILY PO 12/04/20 09:00 12/06/20 10:27 DC 12/05/20 12:43 Divalproex Sodium (Depakote Er) 500 mg DAILY PO 12/02/20 09:00 12/04/20 08:53 DC Divalproex Sodium (Depakote Er) 500 mg QHS PO 11/25/20 21:00 11/30/20 22:07 DC 11/29/20 21:19 Divalproex Sodium (Depakote Er) 500 mg QHS PO 11/30/20 22:10 12/06/20 10:27 DC 12/04/20 22:00 Docusate Sodium (Colace) 100 mg BID PO 11/12/20 09:00 12/27/20 19:53 Enoxaparin Sodium (Lovenox) 40 mg DAILY SC 12/21/20 09:00 12/27/20 10:03 Haloperidol (Haldol) 5 mg BID@0800,2000 IM 12/15/20 20:00 12/16/20 10:47 DC 12/15/20 22:04 Haloperidol (Haldol) 5 mg Q6HP PRN PO AGITATION 12/03/20 12:25 12/24/20 09:59 Haloperidol (Haldol) 5 mg QHS IM 12/16/20 10:45 12/16/20 10:50 DC Haloperidol (Haldol) 5 mg QHS IM 12/16/20 21:00 12/27/20 19:52 Haloperidol (Haldol) 5 mg STAT STAT IM 12/19/20 07:40 12/19/20 07:42 DC 12/19/20 07:56 Ketorolac Tromethamine (ToRADol) 30 mg BIDP PRN IM PAIN LEVEL 6-10 12/14/20 09:20 12/17/20 08:45 Ketorolac Tromethamine (ToRADol) 30 mg Q6H PRN IM PAIN LEVEL 5-10 12/14/20 09:45 12/14/20 09:47 DC Levetiracetam (Keppra Oral Solution) 500 mg BID PO 11/12/20 09:00 12/27/20 19:52 Levothyroxine Sodium (Synthroid) 100 mcg DAILY@06 PO 11/12/20 06:00 12/27/20 06:28 Lorazepam (Ativan) 0.5 mg BID PO 11/17/20 09:00 11/18/20 08:31 DC 11/17/20 19:56 Lorazepam (Ativan) 1 mg BID PO 11/14/20 09:00 11/17/20 07:27 DC 11/16/20 20:33 Lorazepam (Ativan) 1 mg QHS PO 12/01/20 21:00 12/06/20 10:27 DC 12/04/20 21:59 Lorazepam (Ativan) 1 mg STAT STAT IM 12/17/20 15:43 12/17/20 15:45 DC 12/17/20 16:04 Lorazepam (Ativan) 1 mg TID PO 12/06/20 09:00 12/12/20 08:49 DC 12/11/20 10:31 Magnesium Hydroxide (Milk Of Magnesia) 30 ml DAILYPRN PRN PO CONSTIPATION 11/11/20 19:40 Miscellaneous (Unresolved Clarification Entry) SEE LABEL COMMENTS DAILY XX 12/11/20 09:00 12/13/20 09:04 DC Miscellaneous (Unresolved Clarification Entry) SEE LABEL COMMENTS DAILY XX 12/25/20 09:00 12/25/20 12:41 DC Miscellaneous (Unresolved Clarification Entry) SEE LABEL COMMENTS DAILY XX 12/26/20 09:00 12/26/20 10:48 DC Nystatin (Mycostatin Powder, Nystop) APPLY TO AREAS OF RASH BIDP PRN TOP RASH 12/15/20 18:45 12/25/20 22:46 Oxycodone/ Acetaminophen (Percocet 5mg/ 325mg Tablet) 1 tab Q6HP PRN PO MODERATE PAIN (PS 5-7) 12/13/20 16:10 12/25/20 12:40 DC 12/18/20 19:59 Pantoprazole Sodium (Protonix) 40 mg DAILY PO 11/12/20 09:00 12/27/20 09:42 Polyethylene Glycol (Miralax) 1 pkt DAILY PO 11/12/20 09:00 12/24/20 10:00 Quetiapine Fumarate (SEROquel) 100 mg QHS PO 11/13/20 21:00 11/18/20 08:31 DC 11/17/20 19:56 Quetiapine Fumarate (SEROquel) 100 mg QHS PO 11/23/20 21:00 12/01/20 09:14 DC 11/29/20 21:19 Quetiapine Fumarate (SEROquel) 200 mg QHS PO 12/01/20 21:00 12/27/20 19:53 Risperidone (RisperDAL Consta) 37.5 mg Q14D@09 IM 12/07/20 09:00 12/07/20 10:54 DC Risperidone (RisperDAL Consta) 37.5 mg Q14D@09 IM 12/08/20 09:00 12/22/20 09:46 Risperidone (RisperDAL Consta) 37.5 mg Q14D@09 IM 12/22/20 09:30 UNV Risperidone (RisperDAL LIQUID) 4 mg QHS PO 11/12/20 21:00 11/14/20 08:57 DC 11/12/20 21:48 Risperidone (RisperDAL) 2 mg BID PO 11/14/20 09:00 11/21/20 09:34 DC 11/20/20 21:02 Risperidone (RisperDAL) 2 mg QHS PO 11/21/20 21:00 11/23/20 08:57 DC 11/22/20 20:41 Risperidone (RisperDAL) 2 mg QHS PO 12/13/20 21:00 12/22/20 09:28 DC 12/20/20 21:55 Risperidone (RisperDAL) 3 mg QHS PO 11/23/20 21:00 11/28/20 09:00 DC 11/27/20 21:58 Risperidone (RisperDAL) 4 mg DAILY@1700 PO 12/07/20 17:00 12/13/20 09:03 DC Risperidone (RisperDAL) 4 mg QHS PO 11/28/20 21:00 12/06/20 10:27 DC 12/04/20 22:01 Risperidone (RisperDAL) 4 mg QPM PO 12/06/20 17:00 12/07/20 09:42 DC 12/06/20 20:49 Sodium Chloride ([place] Saline Nasal Gel) APPLY SMALL RADHIKA... Q4HP PRN NA NASAL DRYNESS 12/02/20 10:50 Trazodone HCl (Desyrel) 50 mg QHSP PRN PO INSOMNIA 11/11/20 19:40 12/24/20 20:59 Valproic Acid (Depakene Solution) 500 mg 0800,1600 PO 12/06/20 08:00 12/27/20 16:50 Valproic Acid (Depakene) 500 mg BID PO 12/06/20 09:00 Cancel Allergies Coded Allergies: Sulfa (Sulfonamide Antibiotics) (Verified Allergy, Unknown, 01/21/19) aspirin (Verified Allergy, Unknown, 01/21/19) MARISOL HURD M.D. Dec 28, 2020 08:47
[2020-12-28] MEDS: amLODIPine 5 MG TAB PO SCH (08:51)
[2020-12-28] MEDS: DOCUSATE SODIUM 100MG CAPSULE PO SCH ×2 (08:51→20:38)
[2020-12-28] MEDS: BENZTROPINE 1 MG TAB PO SCH ×2 (08:51→20:38)
[2020-12-28] MEDS: levETIRAcetam ORAL SOLUTION 500 MG/5 ML UDC PO SCH ×2 (08:51→20:38)
[2020-12-28] MEDS: MIRALAX *UNIT DOSE* 17GM PACKET PO SCH (08:51)
[2020-12-28] MEDS: PANTOPRAZOLE 40MG TAB (PROTONIX) PO SCH (08:52)
[2020-12-28] MEDS: HALOPERIDOL 5MG/ML VIAL (J1630 PER 1) IM SCH (20:28)
[2020-12-28] MEDS: diphenhydrAMINE 50MG/ML VIAL (J1200) IM SCH (20:29)
[2020-12-28] MEDS: QUEtiapine FUMARATE 200 MG TAB PO SCH (20:38)
[2020-12-28] MEDS: traZODone 50 MG TAB PO PRN (21:52)
[2020-12-29] MEDS: ACETAMINOPHEN TAB 650MG DOSE (2X325MG) PO PRN ×2 (01:46→21:39)
[2020-12-29] MEDS: LEVOTHYROXINE 100MCG TABLET (0.1MG) PO SCH (07:09)
[2020-12-29 07:13] VITALS: BP 114/53
[2020-12-29 07:51] LABS: HEMATOCRIT 33.1 % (36.0-47.0); HEMOGLOBIN 10.6 g/dl (12.0-15.5); MEAN CORPUSCULAR HEMOGLOBIN 29.4 pg (27.0-33.0); MEAN CORPUSCULAR VOLUME 91.7 fl (80.0-96.0); PLATELET COUNT, AUTOMATED 240 10^3/uL (150-450); RED BLOOD COUNT 3.61 10^6/uL (4.00-5.40); WHITE BLOOD COUNT 4.2 10^3/uL (4.0-10.0)
--- NOTE | 2020-12-29 09:13 | MHIPNPDOC ---
[facility] Progress Note Progress Note DATE OF SERVICE: 12/29/20 The patient slept only about 3 hours last night and is awake but appears a little more irritable. She is pointing and pounding the table and mumbling and not able to engage in any conversation. Physically no significant change except that she did not sleep very good last night and appears more irritable and agitated HISTORY:. VITAL SIGNS: See below. NEW TEST RESULTS:. CURRENT MEDICATIONS: See below. MENTAL STATUS EXAMINATION: Patient is a 70-year old female, who is alert and awake. Speech: Is fragmented. Language skills are poor. Thought processes including: Not productive and fragmented. Thought content: Disorganized. Abstract reasoning, and computation: Poor. Description of associations: Disorganized. Description of abnormal or psychotic thoughts: Disorganized. Judgment: Poor. Insight: Poor. Orientation: Oriented to the place. Recent and remote memory: Difficult to evaluate. Attention span and concentration: Poor. Language:. Fund of knowledge:. Mood: Irritable. Affect: Labile. DIAGNOSES: 1.. Schizoaffective disorder 2.. 3.. ASSESSMENT: Not showing any significant improvement MANAGEMENT PLAN: Continue with the current treatment and supportive therapy. TIME SPENT: 10 minutes. Vital Signs Vital Signs Date Time Temp Pulse Resp B/P (MAP) Pulse Ox O2 Delivery O2 Flow Rate FiO2 12/29/20 07:13 98.3 77 17 114/53 (73) 12/28/20 08:03 Room Air 12/28/20 06:58 98 Laboratory Data 24H Labs Laboratory Tests 2 12/29/20 07:24: Nucleated Red Blood Cells % (auto) 0.0 CBC/BMP Laboratory Tests 12/29/20 07:24 Current Medications Current Medications Medications (Trade) Dose Ordered Sig/Marisa Route PRN Reason Start Time Stop Time Status Last Admin Dose Admin Acetaminophen (Tylenol Tab) 650 mg Q6HP PRN PO HEADACHE or MILD DISCOMFORT 11/11/20 19:40 12/29/20 01:46 Al Hydrox/Mg Hydrox/Simethicone (Mylanta) 30 ml Q4HP PRN PO HEARTBURN/INDIGESTION 11/11/20 19:40 Amlodipine Besylate (Norvasc) 5 mg DAILY PO 11/12/20 09:00 12/27/20 09:42 Benztropine Mesylate (Cogentin) 1 mg BID PO 12/13/20 09:00 12/28/20 20:38 Ceftriaxone Sodium (Rocephin) 1 gm Q24H IM 12/08/20 18:00 12/15/20 17:59 DC 12/14/20 17:36 Cephalexin Monohydrate (Keflex) 500 mg Q6H PO 12/04/20 18:00 12/08/20 18:01 DC 12/05/20 12:51 Diphenhydramine HCl (Benadryl) 50 mg BID@ IM 12/15/20 08:00 12/15/20 10:58 DC Diphenhydramine HCl (Benadryl) 50 mg BID@799,1999 IM 12/15/20 20:00 12/16/20 10:47 DC 12/15/20 22:04 Diphenhydramine HCl (Benadryl) 50 mg Q6HP PRN PO AGITATION 12/03/20 12:25 12/20/20 09:24 Diphenhydramine HCl (Benadryl) 50 mg QHS IM 12/16/20 10:45 12/16/20 10:50 DC Diphenhydramine HCl (Benadryl) 50 mg QHS IM 12/16/20 21:00 12/28/20 20:29 Diphenhydramine HCl (Benadryl) 50 mg STAT STAT IM 12/19/20 07:40 12/19/20 07:42 DC 12/19/20 07:56 Divalproex Sodium (Depakote Sprinkles) 500 mg BID PO 11/13/20 09:00 11/25/20 11:02 DC 11/25/20 09:30 Divalproex Sodium (Depakote Er) 250 mg DAILY PO 11/26/20 09:00 12/02/20 07:14 DC 12/01/20 09:55 Divalproex Sodium (Depakote Er) 500 mg BID PO 11/13/20 09:00 11/13/20 09:00 DC Divalproex Sodium (Depakote Er) 500 mg DAILY PO 12/04/20 09:00 12/06/20 10:27 DC 12/05/20 12:43 Divalproex Sodium (Depakote Er) 500 mg DAILY PO 12/02/20 09:00 12/04/20 08:53 DC Divalproex Sodium (Depakote Er) 500 mg QHS PO 11/25/20 21:00 11/30/20 22:07 DC 11/29/20 21:19 Divalproex Sodium (Depakote Er) 500 mg QHS PO 11/30/20 22:10 12/06/20 10:27 DC 12/04/20 22:00 Docusate Sodium (Colace) 100 mg BID PO 11/12/20 09:00 12/28/20 20:38 Enoxaparin Sodium (Lovenox) 40 mg DAILY SC 12/21/20 09:00 12/28/20 07:51 Haloperidol (Haldol) 5 mg BID@0800,2000 IM 12/15/20 20:00 12/16/20 10:47 DC 12/15/20 22:04 Haloperidol (Haldol) 5 mg Q6HP PRN PO AGITATION 12/03/20 12:25 12/24/20 09:59 Haloperidol (Haldol) 5 mg QHS IM 12/16/20 10:45 12/16/20 10:50 DC Haloperidol (Haldol) 5 mg QHS IM 12/16/20 21:00 12/28/20 20:28 Haloperidol (Haldol) 5 mg STAT STAT IM 12/19/20 07:40 12/19/20 07:42 DC 12/19/20 07:56 Ketorolac Tromethamine (ToRADol) 30 mg BIDP PRN IM PAIN LEVEL 6-10 12/14/20 09:20 12/17/20 08:45 Ketorolac Tromethamine (ToRADol) 30 mg Q6H PRN IM PAIN LEVEL 5-10 12/14/20 09:45 12/14/20 09:47 DC Levetiracetam (Keppra Oral Solution) 500 mg BID PO 11/12/20 09:00 12/28/20 20:38 Levothyroxine Sodium (Synthroid) 100 mcg DAILY@06 PO 11/12/20 06:00 12/29/20 07:09 Lorazepam (Ativan) 0.5 mg BID PO 11/17/20 09:00 11/18/20 08:31 DC 11/17/20 19:56 Lorazepam (Ativan) 1 mg BID PO 11/14/20 09:00 11/17/20 07:27 DC 11/16/20 20:33 Lorazepam (Ativan) 1 mg QHS PO 12/01/20 21:00 12/06/20 10:27 DC 12/04/20 21:59 Lorazepam (Ativan) 1 mg STAT STAT IM 12/17/20 15:43 12/17/20 15:45 DC 12/17/20 16:04 Lorazepam (Ativan) 1 mg TID PO 12/06/20 09:00 12/12/20 08:49 DC 12/11/20 10:31 Magnesium Hydroxide (Milk Of Magnesia) 30 ml DAILYPRN PRN PO CONSTIPATION 11/11/20 19:40 Miscellaneous (Unresolved Clarification Entry) SEE LABEL COMMENTS DAILY XX 12/11/20 09:00 12/13/20 09:04 DC Miscellaneous (Unresolved Clarification Entry) SEE LABEL COMMENTS DAILY XX 12/25/20 09:00 12/25/20 12:41 DC Miscellaneous (Unresolved Clarification Entry) SEE LABEL COMMENTS DAILY XX 12/26/20 09:00 12/26/20 10:48 DC Nystatin (Mycostatin Powder, Nystop) APPLY TO AREAS OF RASH BIDP PRN TOP RASH 12/15/20 18:45 12/25/20 22:46 Oxycodone/ Acetaminophen (Percocet 5mg/ 325mg Tablet) 1 tab Q6HP PRN PO MODERATE PAIN (PS 5-7) 12/13/20 16:10 12/25/20 12:40 DC 12/18/20 19:59 Pantoprazole Sodium (Protonix) 40 mg DAILY PO 11/12/20 09:00 12/27/20 09:42 Polyethylene Glycol (Miralax) 1 pkt DAILY PO 11/12/20 09:00 12/24/20 10:00 Quetiapine Fumarate (SEROquel) 100 mg QHS PO 11/13/20 21:00 11/18/20 08:31 DC 11/17/20 19:56 Quetiapine Fumarate (SEROquel) 100 mg QHS PO 11/23/20 21:00 12/01/20 09:14 DC 11/29/20 21:19 Quetiapine Fumarate (SEROquel) 200 mg QHS PO 12/01/20 21:00 12/28/20 20:38 Risperidone (RisperDAL Consta) 37.5 mg Q14D@09 IM 12/07/20 09:00 12/07/20 10:54 DC Risperidone (RisperDAL Consta) 37.5 mg Q14D@09 IM 12/08/20 09:00 12/22/20 09:46 Risperidone (RisperDAL Consta) 37.5 mg Q14D@09 IM 12/22/20 09:30 UNV Risperidone (RisperDAL LIQUID) 4 mg QHS PO 11/12/20 21:00 11/14/20 08:57 DC 11/12/20 21:48 Risperidone (RisperDAL) 2 mg BID PO 11/14/20 09:00 11/21/20 09:34 DC 11/20/20 21:02 Risperidone (RisperDAL) 2 mg QHS PO 11/21/20 21:00 11/23/20 08:57 DC 11/22/20 20:41 Risperidone (RisperDAL) 2 mg QHS PO 12/13/20 21:00 12/22/20 09:28 DC 12/20/20 21:55 Risperidone (RisperDAL) 3 mg QHS PO 11/23/20 21:00 11/28/20 09:00 DC 11/27/20 21:58 Risperidone (RisperDAL) 4 mg DAILY@1700 PO 12/07/20 17:00 12/13/20 09:03 DC Risperidone (RisperDAL) 4 mg QHS PO 11/28/20 21:00 12/06/20 10:27 DC 12/04/20 22:01 Risperidone (RisperDAL) 4 mg QPM PO 12/06/20 17:00 12/07/20 09:42 DC 12/06/20 20:49 Sodium Chloride ([place] Saline Nasal Gel) APPLY SMALL RADHIKA... Q4HP PRN NA NASAL DRYNESS 12/02/20 10:50 Trazodone HCl (Desyrel) 50 mg QHSP PRN PO INSOMNIA 11/11/20 19:40 12/28/20 21:52 Valproic Acid (Depakene Solution) 500 mg 0800,1600 PO 12/06/20 08:00 12/28/20 07:51 Valproic Acid (Depakene) 500 mg BID PO 12/06/20 09:00 Cancel Allergies Coded Allergies: Sulfa (Sulfonamide Antibiotics) (Verified Allergy, Unknown, 01/21/19) aspirin (Verified Allergy, Unknown, 01/21/19) MARISOL HURD M.D. Dec 29, 2020 09:13
[2020-12-29] MEDS: BENZTROPINE 1 MG TAB PO SCH ×2 (09:25→21:37)
[2020-12-29] MEDS: DOCUSATE SODIUM 100MG CAPSULE PO SCH ×2 (09:25→21:37)
[2020-12-29] MEDS: VALPROIC ACID 250MG/5ML SOL ORAL SYRINGE *DRAW UP EXACT DOSE PO SCH ×2 (09:25→17:01)
[2020-12-29] MEDS: PANTOPRAZOLE 40MG TAB (PROTONIX) PO SCH (09:25)
[2020-12-29] MEDS: ENOXAPARIN 40MG/0.4ML SYRINGE (J1650 PER 10MG) SC SCH (09:26)
[2020-12-29] MEDS: levETIRAcetam ORAL SOLUTION 500 MG/5 ML UDC PO SCH ×2 (09:26→21:37)
[2020-12-29] MEDS: amLODIPine 5 MG TAB PO SCH (09:27)
[2020-12-29] MEDS: MIRALAX *UNIT DOSE* 17GM PACKET PO SCH (09:40)
[2020-12-29 16:08] VITALS: BP 138/78
[2020-12-29] MEDS: traZODone 50 MG TAB PO PRN (21:37)
[2020-12-29] MEDS: QUEtiapine FUMARATE 200 MG TAB PO SCH (21:37)
[2020-12-29] MEDS: HALOPERIDOL 5MG/ML VIAL (J1630 PER 1) IM SCH (21:38)
[2020-12-29] MEDS: diphenhydrAMINE 50MG/ML VIAL (J1200) IM SCH (21:38)
[2020-12-30] MEDS: LEVOTHYROXINE 100MCG TABLET (0.1MG) PO SCH (06:06)
[2020-12-30 08:20] VITALS: BP 116/59
--- NOTE | 2020-12-30 08:41 | MHIPNPDOC ---
[facility] Progress Note Progress Note DATE OF SERVICE: 12/30/20 The patient had much better night. After her Haldol and Benadryl injection she slept over 6 hours and this morning she is awake alert and in no acute distress. She is a little more responsive and when a nursing staff mentioned that she is doing better the patient screamed that "I am not better" showing that she is fully aware and comprehending but also wants to be known that she needs continued attention which seems to confirm our impression that patient is showing significant amount of attention seeking behavior. She is taking most of oral medications with much effort and encouragement by the nursing staff and generally reluctant to take oral medicine and repeatedly asking for injectable medicine which is why she is still getting Haldol and Benadryl by injection. HISTORY: . VITAL SIGNS: See below. NEW TEST RESULTS: . CURRENT MEDICATIONS: See below. MENTAL STATUS EXAMINATION: Patient is a [70]-year old female, who is [alert awake]. Speech: Is [more productive but not spontaneous]. Language skills are [fair at best]. Thought processes including: [Relevant answers at times]. Thought content: [No gross paranoid in nature]. Abstract reasoning, and computation: [Poor]. Description of associations: [Better organized at times]. Description of abnormal or psychotic thoughts: [Does not appear actively hallucinating]. Judgment: [Poor]. Insight: [ poor]. Orientation: [Oriented to place and person]. Recent and remote memory: [Difficult to evaluate]. Attention span and concentration: [Poor]. Language:. Fund of knowledge:. Mood: Irritable. Affect: Labile. DIAGNOSES: 1.. Schizoaffective disorder 2.. 3.. ASSESSMENT: Continue with the current medicine including IM Haldol and Benadryl on the evening MANAGEMENT PLAN: No significant change. TIME SPENT: 15 minutes. Vital Signs Vital Signs Date Time Temp Pulse Resp B/P (MAP) Pulse Ox O2 Delivery O2 Flow Rate FiO2 12/30/20 08:20 98.5 77 20 116/59 (78) 100 Room Air Current Medications Current Medications Medications (Trade) Dose Ordered Sig/Marisa Route PRN Reason Start Time Stop Time Status Last Admin Dose Admin Acetaminophen (Tylenol Tab) 650 mg Q6HP PRN PO HEADACHE or MILD DISCOMFORT 11/11/20 19:40 12/29/20 21:39 Al Hydrox/Mg Hydrox/Simethicone (Mylanta) 30 ml Q4HP PRN PO HEARTBURN/INDIGESTION 11/11/20 19:40 Amlodipine Besylate (Norvasc) 5 mg DAILY PO 11/12/20 09:00 12/29/20 09:27 Benztropine Mesylate (Cogentin) 1 mg BID PO 12/13/20 09:00 12/29/20 21:37 Ceftriaxone Sodium (Rocephin) 1 gm Q24H IM 12/08/20 18:00 12/15/20 17:59 DC 12/14/20 17:36 Cephalexin Monohydrate (Keflex) 500 mg Q6H PO 12/04/20 18:00 12/08/20 18:01 DC 12/05/20 12:51 Diphenhydramine HCl (Benadryl) 50 mg BID@08,1999 IM 12/15/20 08:00 12/15/20 10:58 DC Diphenhydramine HCl (Benadryl) 50 mg BID@799,1999 IM 12/15/20 20:00 12/16/20 10:47 DC 12/15/20 22:04 Diphenhydramine HCl (Benadryl) 50 mg Q6HP PRN PO AGITATION 12/03/20 12:25 12/20/20 09:24 Diphenhydramine HCl (Benadryl) 50 mg QHS IM 12/16/20 10:45 12/16/20 10:50 DC Diphenhydramine HCl (Benadryl) 50 mg QHS IM 12/16/20 21:00 12/29/20 21:38 Diphenhydramine HCl (Benadryl) 50 mg STAT STAT IM 12/19/20 07:40 12/19/20 07:42 DC 12/19/20 07:56 Divalproex Sodium (Depakote Sprinkles) 500 mg BID PO 11/13/20 09:00 11/25/20 11:02 DC 11/25/20 09:30 Divalproex Sodium (Depakote Er) 250 mg DAILY PO 11/26/20 09:00 12/02/20 07:14 DC 12/01/20 09:55 Divalproex Sodium (Depakote Er) 500 mg BID PO 11/13/20 09:00 11/13/20 09:00 DC Divalproex Sodium (Depakote Er) 500 mg DAILY PO 12/04/20 09:00 12/06/20 10:27 DC 12/05/20 12:43 Divalproex Sodium (Depakote Er) 500 mg DAILY PO 12/02/20 09:00 12/04/20 08:53 DC Divalproex Sodium (Depakote Er) 500 mg QHS PO 11/25/20 21:00 11/30/20 22:07 DC 11/29/20 21:19 Divalproex Sodium (Depakote Er) 500 mg QHS PO 11/30/20 22:10 12/06/20 10:27 DC 12/04/20 22:00 Docusate Sodium (Colace) 100 mg BID PO 11/12/20 09:00 12/29/20 21:37 Enoxaparin Sodium (Lovenox) 40 mg DAILY SC 12/21/20 09:00 12/29/20 09:26 Haloperidol (Haldol) 5 mg BID@0800,2000 IM 12/15/20 20:00 12/16/20 10:47 DC 12/15/20 22:04 Haloperidol (Haldol) 5 mg Q6HP PRN PO AGITATION 12/03/20 12:25 12/24/20 09:59 Haloperidol (Haldol) 5 mg QHS IM 12/16/20 10:45 12/16/20 10:50 DC Haloperidol (Haldol) 5 mg QHS IM 12/16/20 21:00 12/29/20 21:38 Haloperidol (Haldol) 5 mg STAT STAT IM 12/19/20 07:40 12/19/20 07:42 DC 12/19/20 07:56 Ketorolac Tromethamine (ToRADol) 30 mg BIDP PRN IM PAIN LEVEL 6-10 12/14/20 09:20 12/17/20 08:45 Ketorolac Tromethamine (ToRADol) 30 mg Q6H PRN IM PAIN LEVEL 5-10 12/14/20 09:45 12/14/20 09:47 DC Levetiracetam (Keppra Oral Solution) 500 mg BID PO 11/12/20 09:00 12/29/20 21:37 Levothyroxine Sodium (Synthroid) 100 mcg DAILY@06 PO 11/12/20 06:00 12/30/20 06:06 Lorazepam (Ativan) 0.5 mg BID PO 11/17/20 09:00 11/18/20 08:31 DC 11/17/20 19:56 Lorazepam (Ativan) 1 mg BID PO 11/14/20 09:00 11/17/20 07:27 DC 11/16/20 20:33 Lorazepam (Ativan) 1 mg QHS PO 12/01/20 21:00 12/06/20 10:27 DC 12/04/20 21:59 Lorazepam (Ativan) 1 mg STAT STAT IM 12/17/20 15:43 12/17/20 15:45 DC 12/17/20 16:04 Lorazepam (Ativan) 1 mg TID PO 12/06/20 09:00 12/12/20 08:49 DC 12/11/20 10:31 Magnesium Hydroxide (Milk Of Magnesia) 30 ml DAILYPRN PRN PO CONSTIPATION 11/11/20 19:40 Miscellaneous (Unresolved Clarification Entry) SEE LABEL COMMENTS DAILY XX 12/11/20 09:00 12/13/20 09:04 DC Miscellaneous (Unresolved Clarification Entry) SEE LABEL COMMENTS DAILY XX 12/25/20 09:00 12/25/20 12:41 DC Miscellaneous (Unresolved Clarification Entry) SEE LABEL COMMENTS DAILY XX 12/26/20 09:00 12/26/20 10:48 DC Miscellaneous (Unresolved Clarification Entry) SEE LABEL COMMENTS DAILY XX 12/29/20 09:00 Nystatin (Mycostatin Powder, Nystop) APPLY TO AREAS OF RASH BIDP PRN TOP RASH 12/15/20 18:45 12/25/20 22:46 Oxycodone/ Acetaminophen (Percocet 5mg/ 325mg Tablet) 1 tab Q6HP PRN PO MODERATE PAIN (PS 5-7) 12/13/20 16:10 12/25/20 12:40 DC 12/18/20 19:59 Pantoprazole Sodium (Protonix) 40 mg DAILY PO 11/12/20 09:00 12/29/20 09:25 Polyethylene Glycol (Miralax) 1 pkt DAILY PO 11/12/20 09:00 12/29/20 09:40 Quetiapine Fumarate (SEROquel) 100 mg QHS PO 11/13/20 21:00 11/18/20 08:31 DC 11/17/20 19:56 Quetiapine Fumarate (SEROquel) 100 mg QHS PO 11/23/20 21:00 12/01/20 09:14 DC 11/29/20 21:19 Quetiapine Fumarate (SEROquel) 200 mg QHS PO 12/01/20 21:00 12/29/20 21:37 Risperidone (RisperDAL Consta) 37.5 mg Q14D@09 IM 12/07/20 09:00 12/07/20 10:54 DC Risperidone (RisperDAL Consta) 37.5 mg Q14D@09 IM 12/08/20 09:00 12/22/20 09:46 Risperidone (RisperDAL Consta) 37.5 mg Q14D@09 IM 12/22/20 09:30 UNV Risperidone (RisperDAL LIQUID) 4 mg QHS PO 11/12/20 21:00 11/14/20 08:57 DC 11/12/20 21:48 Risperidone (RisperDAL) 2 mg BID PO 11/14/20 09:00 11/21/20 09:34 DC 11/20/20 21:02 Risperidone (RisperDAL) 2 mg QHS PO 11/21/20 21:00 11/23/20 08:57 DC 11/22/20 20:41 Risperidone (RisperDAL) 2 mg QHS PO 12/13/20 21:00 12/22/20 09:28 DC 12/20/20 21:55 Risperidone (RisperDAL) 3 mg QHS PO 11/23/20 21:00 11/28/20 09:00 DC 11/27/20 21:58 Risperidone (RisperDAL) 4 mg DAILY@1700 PO 12/07/20 17:00 12/13/20 09:03 DC Risperidone (RisperDAL) 4 mg QHS PO 11/28/20 21:00 12/06/20 10:27 DC 12/04/20 22:01 Risperidone (RisperDAL) 4 mg QPM PO 12/06/20 17:00 12/07/20 09:42 DC 12/06/20 20:49 Sodium Chloride ([place] Saline Nasal Gel) APPLY SMALL RADHIKA... Q4HP PRN NA NASAL DRYNESS 12/02/20 10:50 Trazodone HCl (Desyrel) 50 mg QHSP PRN PO INSOMNIA 11/11/20 19:40 12/29/20 21:37 Valproic Acid (Depakene Solution) 500 mg 0800,1600 PO 12/06/20 08:00 12/29/20 17:01 Valproic Acid (Depakene) 500 mg BID PO 12/06/20 09:00 Cancel Allergies Coded Allergies: Sulfa (Sulfonamide Antibiotics) (Verified Allergy, Unknown, 01/21/19) aspirin (Verified Allergy, Unknown, 01/21/19) MARISOL HURD M.D. Dec 30, 2020 08:41
[2020-12-30] MEDS: BENZTROPINE 1 MG TAB PO SCH ×2 (09:00→21:37)
[2020-12-30] MEDS: levETIRAcetam ORAL SOLUTION 500 MG/5 ML UDC PO SCH ×2 (09:00→21:37)
[2020-12-30] MEDS: DOCUSATE SODIUM 100MG CAPSULE PO SCH ×2 (09:00→21:37)
[2020-12-30] MEDS: VALPROIC ACID 250MG/5ML SOL ORAL SYRINGE *DRAW UP EXACT DOSE PO SCH ×2 (09:05→17:07)
[2020-12-30] MEDS: ENOXAPARIN 40MG/0.4ML SYRINGE (J1650 PER 10MG) SC SCH (09:05)
[2020-12-30] MEDS: MIRALAX *UNIT DOSE* 17GM PACKET PO SCH (09:05)
[2020-12-30] MEDS: PANTOPRAZOLE 40MG TAB (PROTONIX) PO SCH (09:05)
[2020-12-30] MEDS: amLODIPine 5 MG TAB PO SCH (09:06)
[2020-12-30 16:20] VITALS: BP 113/59
[2020-12-30] MEDS: QUEtiapine FUMARATE 200 MG TAB PO SCH (21:37)
[2020-12-31] MEDS: diphenhydrAMINE 50MG/ML VIAL (J1200) IM SCH ×2 (00:02→21:00)
[2020-12-31] MEDS: HALOPERIDOL 5MG/ML VIAL (J1630 PER 1) IM SCH ×2 (00:02→21:00)
[2020-12-31] MEDS: LEVOTHYROXINE 100MCG TABLET (0.1MG) PO SCH (06:00)
[2020-12-31] MEDS: PANTOPRAZOLE 40MG TAB (PROTONIX) PO SCH (09:00)
[2020-12-31] MEDS: DOCUSATE SODIUM 100MG CAPSULE PO SCH ×2 (09:00→21:00)
[2020-12-31] MEDS: MIRALAX *UNIT DOSE* 17GM PACKET PO SCH (09:00)
[2020-12-31] MEDS: levETIRAcetam ORAL SOLUTION 500 MG/5 ML UDC PO SCH ×2 (09:16→21:51)
[2020-12-31] MEDS: ENOXAPARIN 40MG/0.4ML SYRINGE (J1650 PER 10MG) SC SCH (09:16)
[2020-12-31] MEDS: VALPROIC ACID 250MG/5ML SOL ORAL SYRINGE *DRAW UP EXACT DOSE PO SCH ×2 (09:17→16:00)
[2020-12-31] MEDS: amLODIPine 5 MG TAB PO SCH (09:18)
[2020-12-31] MEDS: BENZTROPINE 1 MG TAB PO SCH ×2 (09:18→21:51)
[2020-12-31 16:31] VITALS: BP 111/58
[2020-12-31] MEDS: QUEtiapine FUMARATE 200 MG TAB PO SCH (21:51)
[2021-01-01] MEDS: LEVOTHYROXINE 100MCG TABLET (0.1MG) PO SCH (05:26)
[2021-01-01] MEDS: PANTOPRAZOLE 40MG TAB (PROTONIX) PO SCH (07:59)
[2021-01-01] MEDS: levETIRAcetam ORAL SOLUTION 500 MG/5 ML UDC PO SCH ×2 (07:59→21:41)
[2021-01-01] MEDS: DOCUSATE SODIUM 100MG CAPSULE PO SCH ×2 (09:00→21:42)
[2021-01-01] MEDS: amLODIPine 5 MG TAB PO SCH (09:04)
[2021-01-01] MEDS: ENOXAPARIN 40MG/0.4ML SYRINGE (J1650 PER 10MG) SC SCH (09:05)
[2021-01-01] MEDS: BENZTROPINE 1 MG TAB PO SCH ×2 (09:07→21:42)
[2021-01-01] MEDS: VALPROIC ACID 250MG/5ML SOL ORAL SYRINGE *DRAW UP EXACT DOSE PO SCH ×2 (09:08→16:23)
[2021-01-01] MEDS: MIRALAX *UNIT DOSE* 17GM PACKET PO SCH (11:23)
[2021-01-01 13:04] LABS: HEMATOCRIT 36.8 % (36.0-47.0); HEMOGLOBIN 11.6 g/dl (12.0-15.5); MEAN CORPUSCULAR HEMOGLOBIN 29.4 pg (27.0-33.0); MEAN CORPUSCULAR HGB CONC 31.5 g/dl (32.0-36.5); MEAN CORPUSCULAR VOLUME 93.2 fl (80.0-96.0); PLATELET COUNT, AUTOMATED 289 10^3/uL (150-450); RED BLOOD COUNT 3.95 10^6/uL (4.00-5.40)
[2021-01-01 16:22] VITALS: BP 130/61
[2021-01-01] MEDS: traZODone 50 MG TAB PO PRN (21:42)
[2021-01-01] MEDS: QUEtiapine FUMARATE 200 MG TAB PO SCH (21:42)
[2021-01-01] MEDS: diphenhydrAMINE 50MG/ML VIAL (J1200) IM SCH (21:42)
[2021-01-01] MEDS: HALOPERIDOL 5MG/ML VIAL (J1630 PER 1) IM SCH (21:42)
[2021-01-02] MEDS: LEVOTHYROXINE 100MCG TABLET (0.1MG) PO SCH (06:17)
[2021-01-02 07:32] VITALS: BP 120/69
[2021-01-02] MEDS: DOCUSATE SODIUM 100MG CAPSULE PO SCH ×2 (09:00→21:51)
[2021-01-02] MEDS: VALPROIC ACID 250MG/5ML SOL ORAL SYRINGE *DRAW UP EXACT DOSE PO SCH ×2 (09:27→16:07)
[2021-01-02] MEDS: MIRALAX *UNIT DOSE* 17GM PACKET PO SCH (09:27)
[2021-01-02] MEDS: amLODIPine 5 MG TAB PO SCH (09:28)
[2021-01-02] MEDS: PANTOPRAZOLE 40MG TAB (PROTONIX) PO SCH (09:28)
[2021-01-02] MEDS: ENOXAPARIN 40MG/0.4ML SYRINGE (J1650 PER 10MG) SC SCH (09:28)
[2021-01-02] MEDS: levETIRAcetam ORAL SOLUTION 500 MG/5 ML UDC PO SCH ×2 (09:28→21:52)
[2021-01-02] MEDS: BENZTROPINE 1 MG TAB PO SCH ×2 (09:28→21:52)
--- NOTE | 2021-01-02 10:16 | MHIPNPDOC ---
[facility] Progress Note Progress Note DATE OF SERVICE: 01/02/21 Patient is much more cooperative with the treatment and her medications and has been showing some improvement in her sleep pattern and her level of agitation. She was able to come out to the lounge area with a walker and is able to eat and maintaining good control. She is still speaking in a very regressed manner and quite childish and attention seeking but is in much better contactants. And overall showing some improvement. HISTORY:. VITAL SIGNS: See below. NEW TEST RESULTS:. CURRENT MEDICATIONS: See below. MENTAL STATUS EXAMINATION: Patient is a 70-year old female, who is in no acute distress. Speech: Is slightly more relevant. Language skills are still poor. Thought processes including: More relevant. Thought content: No gross delusional thinking noticed. Abstract reasoning, and computation:. Description of associations: Better organized. Description of abnormal or psychotic thoughts: Does not appear to be hallucinating. Judgment: Poor. Insight: Poor. Orientation: Appears better oriented. Recent and remote memory: Difficult to evaluate. Attention span and concentration: Poor. Language:. Fund of knowledge:. Mood: Not as angry irritable. Affect: Much less agitated. DIAGNOSES: 1.. Schizoaffective disorder 2.. 3.. ASSESSMENT: Showing some improvement MANAGEMENT PLAN: Continue with the current treatment and supportive therapy. TIME SPENT: 10 minutes. Vital Signs Vital Signs Date Time Temp Pulse Resp B/P (MAP) Pulse Ox O2 Delivery O2 Flow Rate FiO2 01/02/21 09:28 88 120/69 01/02/21 07:32 98.8 17 93 Room Air Laboratory Data 24H Labs Laboratory Tests 2 01/01/21 12:53: Nucleated Red Blood Cells % (auto) 0.0 CBC/BMP Laboratory Tests 01/01/21 12:53 Current Medications Current Medications Medications (Trade) Dose Ordered Sig/Marisa Route PRN Reason Start Time Stop Time Status Last Admin Dose Admin Acetaminophen (Tylenol Tab) 650 mg Q6HP PRN PO HEADACHE or MILD DISCOMFORT 11/11/20 19:40 12/29/20 21:39 Al Hydrox/Mg Hydrox/Simethicone (Mylanta) 30 ml Q4HP PRN PO HEARTBURN/INDIGESTION 11/11/20 19:40 Amlodipine Besylate (Norvasc) 5 mg DAILY PO 11/12/20 09:00 01/02/21 09:28 Benztropine Mesylate (Cogentin) 1 mg BID PO 12/13/20 09:00 01/02/21 09:28 Ceftriaxone Sodium (Rocephin) 1 gm Q24H IM 12/08/20 18:00 12/15/20 17:59 DC 12/14/20 17:36 Cephalexin Monohydrate (Keflex) 500 mg Q6H PO 12/04/20 18:00 12/08/20 18:01 DC 12/05/20 12:51 Diphenhydramine HCl (Benadryl) 50 mg BID@799,1999 IM 12/15/20 08:00 12/15/20 10:58 DC Diphenhydramine HCl (Benadryl) 50 mg BID@799,1999 IM 12/15/20 20:00 12/16/20 10:47 DC 12/15/20 22:04 Diphenhydramine HCl (Benadryl) 50 mg Q6HP PRN PO AGITATION 12/03/20 12:25 12/20/20 09:24 Diphenhydramine HCl (Benadryl) 50 mg QHS IM 12/16/20 10:45 12/16/20 10:50 DC Diphenhydramine HCl (Benadryl) 50 mg QHS IM 12/16/20 21:00 01/01/21 21:42 Diphenhydramine HCl (Benadryl) 50 mg STAT STAT IM 12/19/20 07:40 12/19/20 07:42 DC 12/19/20 07:56 Divalproex Sodium (Depakote Sprinkles) 500 mg BID PO 11/13/20 09:00 11/25/20 11:02 DC 11/25/20 09:30 Divalproex Sodium (Depakote Er) 250 mg DAILY PO 11/26/20 09:00 12/02/20 07:14 DC 12/01/20 09:55 Divalproex Sodium (Depakote Er) 500 mg BID PO 11/13/20 09:00 11/13/20 09:00 DC Divalproex Sodium (Depakote Er) 500 mg DAILY PO 12/04/20 09:00 12/06/20 10:27 DC 12/05/20 12:43 Divalproex Sodium (Depakote Er) 500 mg DAILY PO 12/02/20 09:00 12/04/20 08:53 DC Divalproex Sodium (Depakote Er) 500 mg QHS PO 11/25/20 21:00 11/30/20 22:07 DC 11/29/20 21:19 Divalproex Sodium (Depakote Er) 500 mg QHS PO 11/30/20 22:10 12/06/20 10:27 DC 12/04/20 22:00 Docusate Sodium (Colace) 100 mg BID PO 11/12/20 09:00 01/01/21 21:42 Enoxaparin Sodium (Lovenox) 40 mg DAILY SC 12/21/20 09:00 01/02/21 09:28 Haloperidol (Haldol) 5 mg BID@0800,2000 IM 12/15/20 20:00 12/16/20 10:47 DC 12/15/20 22:04 Haloperidol (Haldol) 5 mg Q6HP PRN PO AGITATION 12/03/20 12:25 12/24/20 09:59 Haloperidol (Haldol) 5 mg QHS IM 12/16/20 10:45 12/16/20 10:50 DC Haloperidol (Haldol) 5 mg QHS IM 12/16/20 21:00 01/01/21 21:42 Haloperidol (Haldol) 5 mg STAT STAT IM 12/19/20 07:40 12/19/20 07:42 DC 12/19/20 07:56 Ketorolac Tromethamine (ToRADol) 30 mg BIDP PRN IM PAIN LEVEL 6-10 12/14/20 09:20 12/17/20 08:45 Ketorolac Tromethamine (ToRADol) 30 mg Q6H PRN IM PAIN LEVEL 5-10 12/14/20 09:45 12/14/20 09:47 DC Levetiracetam (Keppra Oral Solution) 500 mg BID PO 11/12/20 09:00 01/02/21 09:28 Levothyroxine Sodium (Synthroid) 100 mcg DAILY@06 PO 11/12/20 06:00 01/02/21 06:17 Lorazepam (Ativan) 0.5 mg BID PO 11/17/20 09:00 11/18/20 08:31 DC 11/17/20 19:56 Lorazepam (Ativan) 1 mg BID PO 11/14/20 09:00 11/17/20 07:27 DC 11/16/20 20:33 Lorazepam (Ativan) 1 mg QHS PO 12/01/20 21:00 12/06/20 10:27 DC 12/04/20 21:59 Lorazepam (Ativan) 1 mg STAT STAT IM 12/17/20 15:43 12/17/20 15:45 DC 12/17/20 16:04 Lorazepam (Ativan) 1 mg TID PO 12/06/20 09:00 12/12/20 08:49 DC 12/11/20 10:31 Magnesium Hydroxide (Milk Of Magnesia) 30 ml DAILYPRN PRN PO CONSTIPATION 11/11/20 19:40 Miscellaneous (Unresolved Clarification Entry) SEE LABEL COMMENTS DAILY XX 12/11/20 09:00 12/13/20 09:04 DC Miscellaneous (Unresolved Clarification Entry) SEE LABEL COMMENTS DAILY XX 12/25/20 09:00 12/25/20 12:41 DC Miscellaneous (Unresolved Clarification Entry) SEE LABEL COMMENTS DAILY XX 12/26/20 09:00 12/26/20 10:48 DC Miscellaneous (Unresolved Clarification Entry) SEE LABEL COMMENTS DAILY XX 12/29/20 09:00 12/30/20 12:15 DC Miscellaneous (Unresolved Clarification Entry) SEE LABEL COMMENTS DAILY XX 12/30/20 09:00 01/01/21 11:18 DC Miscellaneous (Unresolved Clarification Entry) SEE LABEL COMMENTS QID XX 01/01/21 09:00 01/01/21 12:44 DC Nystatin (Mycostatin Powder, Nystop) APPLY TO AREAS OF RASH BIDP PRN TOP RASH 12/15/20 18:45 12/25/20 22:46 Oxycodone/ Acetaminophen (Percocet 5mg/ 325mg Tablet) 1 tab Q6HP PRN PO MODERATE PAIN (PS 5-7) 12/13/20 16:10 12/25/20 12:40 DC 12/18/20 19:59 Pantoprazole Sodium (Protonix) 40 mg DAILY PO 11/12/20 09:00 01/02/21 09:28 Polyethylene Glycol (Miralax) 1 pkt DAILY PO 11/12/20 09:00 01/02/21 09:27 Quetiapine Fumarate (SEROquel) 100 mg QHS PO 11/13/20 21:00 11/18/20 08:31 DC 11/17/20 19:56 Quetiapine Fumarate (SEROquel) 100 mg QHS PO 11/23/20 21:00 12/01/20 09:14 DC 11/29/20 21:19 Quetiapine Fumarate (SEROquel) 200 mg QHS PO 12/01/20 21:00 01/01/21 21:42 Risperidone (RisperDAL Consta) 37.5 mg Q14D@09 IM 12/07/20 09:00 12/07/20 10:54 DC Risperidone (RisperDAL Consta) 37.5 mg Q14D@09 IM 12/08/20 09:00 12/22/20 09:46 Risperidone (RisperDAL Consta) 37.5 mg Q14D@09 IM 12/22/20 09:30 UNV Risperidone (RisperDAL LIQUID) 4 mg QHS PO 11/12/20 21:00 11/14/20 08:57 DC 11/12/20 21:48 Risperidone (RisperDAL) 2 mg BID PO 11/14/20 09:00 11/21/20 09:34 DC 11/20/20 21:02 Risperidone (RisperDAL) 2 mg QHS PO 11/21/20 21:00 11/23/20 08:57 DC 11/22/20 20:41 Risperidone (RisperDAL) 2 mg QHS PO 12/13/20 21:00 12/22/20 09:28 DC 12/20/20 21:55 Risperidone (RisperDAL) 3 mg QHS PO 11/23/20 21:00 11/28/20 09:00 DC 11/27/20 21:58 Risperidone (RisperDAL) 4 mg DAILY@1700 PO 12/07/20 17:00 12/13/20 09:03 DC Risperidone (RisperDAL) 4 mg QHS PO 11/28/20 21:00 12/06/20 10:27 DC 12/04/20 22:01 Risperidone (RisperDAL) 4 mg QPM PO 12/06/20 17:00 12/07/20 09:42 DC 12/06/20 20:49 Sodium Chloride ([place] Saline Nasal Gel) APPLY SMALL RADHIKA... Q4HP PRN NA NASAL DRYNESS 12/02/20 10:50 01/01/21 10:49 DC Trazodone HCl (Desyrel) 50 mg QHSP PRN PO INSOMNIA 11/11/20 19:40 01/01/21 21:42 Valproic Acid (Depakene Solution) 500 mg 0800,1600 PO 12/06/20 08:00 01/02/21 09:27 Valproic Acid (Depakene) 500 mg BID PO 12/06/20 09:00 Cancel Allergies Coded Allergies: Sulfa (Sulfonamide Antibiotics) (Verified Allergy, Unknown, 01/21/19) aspirin (Verified Allergy, Unknown, 01/21/19) MARISOL HURD M.D. Jan 02, 2021 10:16
[2021-01-02 16:19] VITALS: BP 138/80
[2021-01-02] MEDS: diphenhydrAMINE 50MG/ML VIAL (J1200) IM SCH (21:52)
[2021-01-02] MEDS: QUEtiapine FUMARATE 200 MG TAB PO SCH (21:52)
[2021-01-02] MEDS: HALOPERIDOL 5MG/ML VIAL (J1630 PER 1) IM SCH (21:53)
[2021-01-02] MEDS: traZODone 50 MG TAB PO PRN (22:40)
[2021-01-02] MEDS: ACETAMINOPHEN TAB 650MG DOSE (2X325MG) PO PRN (22:41)
[2021-01-03] MEDS: LEVOTHYROXINE 100MCG TABLET (0.1MG) PO SCH (06:00)
[2021-01-03 06:53] VITALS: BP 105/51
[2021-01-03] MEDS: DOCUSATE SODIUM 100MG CAPSULE PO SCH ×2 (08:32→21:01)
[2021-01-03] MEDS: BENZTROPINE 1 MG TAB PO SCH ×2 (08:32→21:01)
[2021-01-03] MEDS: PANTOPRAZOLE 40MG TAB (PROTONIX) PO SCH (08:32)
[2021-01-03] MEDS: MIRALAX *UNIT DOSE* 17GM PACKET PO SCH (08:33)
[2021-01-03] MEDS: ENOXAPARIN 40MG/0.4ML SYRINGE (J1650 PER 10MG) SC SCH (08:33)
[2021-01-03] MEDS: levETIRAcetam ORAL SOLUTION 500 MG/5 ML UDC PO SCH ×2 (08:33→21:01)
[2021-01-03] MEDS: VALPROIC ACID 250MG/5ML SOL ORAL SYRINGE *DRAW UP EXACT DOSE PO SCH ×2 (08:34→15:48)
[2021-01-03] MEDS: amLODIPine 5 MG TAB PO SCH (09:51)
--- NOTE | 2021-01-03 10:25 | MHIPNPDOC ---
[facility] Progress Note Progress Note DATE OF SERVICE: 01/03/21 The patient is maintaining somewhat improved mental status and behavior. She has been sleeping better and this morning she is back asleep and is in no acute distress and has not had any major behavioral issues. HISTORY:. VITAL SIGNS: See below. NEW TEST RESULTS:. CURRENT MEDICATIONS: See below. MENTAL STATUS EXAMINATION: Patient is a 70-year old female, who is in no acute distress. Speech: Is been more relevant. Language skills are poor. Thought processes including: Fragmented. Thought content: No new complaint. Abstract reasoning, and computation:. Description of associations: Fragmented. Description of abnormal or psychotic thoughts: Does not appear to be actively hallucinating. Judgment: Poor. Insight: Poor. Orientation: Oriented. Recent and remote memory:. Attention span and concentration:. Language:. Fund of knowledge:. Mood: Anxious at times. Affect: Labile. DIAGNOSES: 1. Schizoaffective disorder. 2.. 3.. ASSESSMENT: Maintaining moderately improved mental status MANAGEMENT PLAN: Continue with the current treatment and awaiting for detention. TIME SPENT: 10 minutes. Vital Signs Vital Signs Date Time Temp Pulse Resp B/P (MAP) Pulse Ox O2 Delivery O2 Flow Rate FiO2 01/03/21 09:51 110/62 01/03/21 06:53 97.7 74 20 95 Room Air Current Medications Current Medications Medications (Trade) Dose Ordered Sig/Marisa Route PRN Reason Start Time Stop Time Status Last Admin Dose Admin Acetaminophen (Tylenol Tab) 650 mg Q6HP PRN PO HEADACHE or MILD DISCOMFORT 11/11/20 19:40 01/02/21 22:41 Al Hydrox/Mg Hydrox/Simethicone (Mylanta) 30 ml Q4HP PRN PO HEARTBURN/INDIGESTION 11/11/20 19:40 Amlodipine Besylate (Norvasc) 5 mg DAILY PO 11/12/20 09:00 01/03/21 09:51 Benztropine Mesylate (Cogentin) 1 mg BID PO 12/13/20 09:00 01/03/21 08:32 Ceftriaxone Sodium (Rocephin) 1 gm Q24H IM 12/08/20 18:00 12/15/20 17:59 DC 12/14/20 17:36 Cephalexin Monohydrate (Keflex) 500 mg Q6H PO 12/04/20 18:00 12/08/20 18:01 DC 12/05/20 12:51 Diphenhydramine HCl (Benadryl) 50 mg BID@08,1999 IM 12/15/20 08:00 12/15/20 10:58 DC Diphenhydramine HCl (Benadryl) 50 mg BID@799,1999 IM 12/15/20 20:00 12/16/20 10:47 DC 12/15/20 22:04 Diphenhydramine HCl (Benadryl) 50 mg Q6HP PRN PO AGITATION 12/03/20 12:25 12/20/20 09:24 Diphenhydramine HCl (Benadryl) 50 mg QHS IM 12/16/20 10:45 12/16/20 10:50 DC Diphenhydramine HCl (Benadryl) 50 mg QHS IM 12/16/20 21:00 01/02/21 21:52 Diphenhydramine HCl (Benadryl) 50 mg STAT STAT IM 12/19/20 07:40 12/19/20 07:42 DC 12/19/20 07:56 Divalproex Sodium (Depakote Sprinkles) 500 mg BID PO 11/13/20 09:00 11/25/20 11:02 DC 11/25/20 09:30 Divalproex Sodium (Depakote Er) 250 mg DAILY PO 11/26/20 09:00 12/02/20 07:14 DC 12/01/20 09:55 Divalproex Sodium (Depakote Er) 500 mg BID PO 11/13/20 09:00 11/13/20 09:00 DC Divalproex Sodium (Depakote Er) 500 mg DAILY PO 12/04/20 09:00 12/06/20 10:27 DC 12/05/20 12:43 Divalproex Sodium (Depakote Er) 500 mg DAILY PO 12/02/20 09:00 12/04/20 08:53 DC Divalproex Sodium (Depakote Er) 500 mg QHS PO 11/25/20 21:00 11/30/20 22:07 DC 11/29/20 21:19 Divalproex Sodium (Depakote Er) 500 mg QHS PO 11/30/20 22:10 12/06/20 10:27 DC 12/04/20 22:00 Docusate Sodium (Colace) 100 mg BID PO 11/12/20 09:00 01/03/21 08:32 Enoxaparin Sodium (Lovenox) 40 mg DAILY SC 12/21/20 09:00 01/03/21 08:33 Haloperidol (Haldol) 5 mg BID@0800,2000 IM 12/15/20 20:00 12/16/20 10:47 DC 12/15/20 22:04 Haloperidol (Haldol) 5 mg Q6HP PRN PO AGITATION 12/03/20 12:25 12/24/20 09:59 Haloperidol (Haldol) 5 mg QHS IM 12/16/20 10:45 12/16/20 10:50 DC Haloperidol (Haldol) 5 mg QHS IM 12/16/20 21:00 01/02/21 21:53 Haloperidol (Haldol) 5 mg STAT STAT IM 12/19/20 07:40 12/19/20 07:42 DC 12/19/20 07:56 Ketorolac Tromethamine (ToRADol) 30 mg BIDP PRN IM PAIN LEVEL 6-10 12/14/20 09:20 12/17/20 08:45 Ketorolac Tromethamine (ToRADol) 30 mg Q6H PRN IM PAIN LEVEL 5-10 12/14/20 09:45 12/14/20 09:47 DC Levetiracetam (Keppra Oral Solution) 500 mg BID PO 11/12/20 09:00 01/03/21 08:33 Levothyroxine Sodium (Synthroid) 100 mcg DAILY@06 PO 11/12/20 06:00 01/03/21 06:00 Lorazepam (Ativan) 0.5 mg BID PO 11/17/20 09:00 11/18/20 08:31 DC 11/17/20 19:56 Lorazepam (Ativan) 1 mg BID PO 11/14/20 09:00 11/17/20 07:27 DC 11/16/20 20:33 Lorazepam (Ativan) 1 mg QHS PO 12/01/20 21:00 12/06/20 10:27 DC 12/04/20 21:59 Lorazepam (Ativan) 1 mg STAT STAT IM 12/17/20 15:43 7/24/21 15:45 DC 12/17/20 16:04 Lorazepam (Ativan) 1 mg TID PO 12/06/20 09:00 12/12/20 08:49 DC 12/11/20 10:31 Magnesium Hydroxide (Milk Of Magnesia) 30 ml DAILYPRN PRN PO CONSTIPATION 11/11/20 19:40 Miscellaneous (Unresolved Clarification Entry) SEE LABEL COMMENTS DAILY XX 12/11/20 09:00 12/13/20 09:04 DC Miscellaneous (Unresolved Clarification Entry) SEE LABEL COMMENTS DAILY XX 12/25/20 09:00 12/25/20 12:41 DC Miscellaneous (Unresolved Clarification Entry) SEE LABEL COMMENTS DAILY XX 12/26/20 09:00 12/26/20 10:48 DC Miscellaneous (Unresolved Clarification Entry) SEE LABEL COMMENTS DAILY XX 12/29/20 09:00 12/30/20 12:15 DC Miscellaneous (Unresolved Clarification Entry) SEE LABEL COMMENTS DAILY XX 12/30/20 09:00 01/01/21 11:18 DC Miscellaneous (Unresolved Clarification Entry) SEE LABEL COMMENTS QID XX 01/01/21 09:00 01/01/21 12:44 DC Nystatin (Mycostatin Powder, Nystop) APPLY TO AREAS OF RASH BIDP PRN TOP RASH 12/15/20 18:45 12/25/20 22:46 Oxycodone/ Acetaminophen (Percocet 5mg/ 325mg Tablet) 1 tab Q6HP PRN PO MODERATE PAIN (PS 5-7) 12/13/20 16:10 12/25/20 12:40 DC 12/18/20 19:59 Pantoprazole Sodium (Protonix) 40 mg DAILY PO 11/12/20 09:00 01/03/21 08:32 Polyethylene Glycol (Miralax) 1 pkt DAILY PO 11/12/20 09:00 01/03/21 08:33 Quetiapine Fumarate (SEROquel) 100 mg QHS PO 11/13/20 21:00 11/18/20 08:31 DC 11/17/20 19:56 Quetiapine Fumarate (SEROquel) 100 mg QHS PO 11/23/20 21:00 12/01/20 09:14 DC 11/29/20 21:19 Quetiapine Fumarate (SEROquel) 200 mg QHS PO 12/01/20 21:00 01/02/21 21:52 Risperidone (RisperDAL Consta) 37.5 mg Q14D@09 IM 12/07/20 09:00 12/07/20 10:54 DC Risperidone (RisperDAL Consta) 37.5 mg Q14D@09 IM 12/08/20 09:00 12/22/20 09:46 Risperidone (RisperDAL Consta) 37.5 mg Q14D@09 IM 12/22/20 09:30 UNV Risperidone (RisperDAL LIQUID) 4 mg QHS PO 11/12/20 21:00 11/14/20 08:57 DC 11/12/20 21:48 Risperidone (RisperDAL) 2 mg BID PO 11/14/20 09:00 11/21/20 09:34 DC 11/20/20 21:02 Risperidone (RisperDAL) 2 mg QHS PO 11/21/20 21:00 11/23/20 08:57 DC 11/22/20 20:41 Risperidone (RisperDAL) 2 mg QHS PO 12/13/20 21:00 12/22/20 09:28 DC 12/20/20 21:55 Risperidone (RisperDAL) 3 mg QHS PO 11/23/20 21:00 11/28/20 09:00 DC 11/27/20 21:58 Risperidone (RisperDAL) 4 mg DAILY@1700 PO 12/07/20 17:00 12/13/20 09:03 DC Risperidone (RisperDAL) 4 mg QHS PO 11/28/20 21:00 12/06/20 10:27 DC 12/04/20 22:01 Risperidone (RisperDAL) 4 mg QPM PO 12/06/20 17:00 12/07/20 09:42 DC 12/06/20 20:49 Sodium Chloride ([place] Saline Nasal Gel) APPLY SMALL RADHIKA... Q4HP PRN NA NASAL DRYNESS 12/02/20 10:50 01/01/21 10:49 DC Trazodone HCl (Desyrel) 50 mg QHSP PRN PO INSOMNIA 11/11/20 19:40 01/02/21 22:40 Valproic Acid (Depakene Solution) 500 mg 0800,1600 PO 12/06/20 08:00 01/03/21 08:34 Valproic Acid (Depakene) 500 mg BID PO 12/06/20 09:00 Cancel Allergies Coded Allergies: Sulfa (Sulfonamide Antibiotics) (Verified Allergy, Unknown, 01/21/19) aspirin (Verified Allergy, Unknown, 01/21/19) MARISOL HURD M.D. Jan 03, 2021 10:25
[2021-01-03 18:06] VITALS: BP 140/80
[2021-01-03] MEDS: ACETAMINOPHEN TAB 650MG DOSE (2X325MG) PO PRN (19:56)
[2021-01-03] MEDS: QUEtiapine FUMARATE 200 MG TAB PO SCH (21:01)
[2021-01-03] MEDS: HALOPERIDOL 5MG/ML VIAL (J1630 PER 1) IM SCH (21:13)
[2021-01-03] MEDS: diphenhydrAMINE 50MG/ML VIAL (J1200) IM SCH (21:13)
[2021-01-04] MEDS ORDERED: UNRESOLVED CLARIFICATION ENTRY XX SCH (00:01)
[2021-01-04] MEDS: LEVOTHYROXINE 100MCG TABLET (0.1MG) PO SCH (06:23)
[2021-01-04] MEDS: MIRALAX *UNIT DOSE* 17GM PACKET PO SCH (09:00)
[2021-01-04] MEDS: ENOXAPARIN 40MG/0.4ML SYRINGE (J1650 PER 10MG) SC SCH (09:00)
[2021-01-04] MEDS: levETIRAcetam ORAL SOLUTION 500 MG/5 ML UDC PO SCH ×2 (09:00→21:29)
[2021-01-04] MEDS: DOCUSATE SODIUM 100MG CAPSULE PO SCH ×2 (09:01→21:00)
[2021-01-04] MEDS: VALPROIC ACID 250MG/5ML SOL ORAL SYRINGE *DRAW UP EXACT DOSE PO SCH ×2 (09:01→15:45)
[2021-01-04] MEDS: BENZTROPINE 1 MG TAB PO SCH ×2 (09:01→21:29)
[2021-01-04] MEDS: PANTOPRAZOLE 40MG TAB (PROTONIX) PO SCH (09:01)
[2021-01-04] MEDS: amLODIPine 5 MG TAB PO SCH (09:01)
--- NOTE | 2021-01-04 10:07 | MHIPNPDOC ---
[facility] Progress Note Progress Note DATE OF SERVICE: 01/04/21 The patient has been showing some improvement with sleep and agitation since she has been getting the Haldol and Benadryl by injection at bedtime. She is defi nitely much less agitated and not as confused and been able to cooperate with oral medications. We will discontinue IM Haldol and Benadryl and change it to oral dose at bedtime and evaluate further. She had a good night of sleep and she is in better spirits this morning but her speech is still quite limited and childish. HISTORY:. VITAL SIGNS: See below. NEW TEST RESULTS:. CURRENT MEDICATIONS: See below. MENTAL STATUS EXAMINATION: Patient is a 70-year old female, who is in no acute distress. Speech: Is fragmented. Language skills are poor. Thought processes including: Not spontaneous. Thought content: No new complaint. Abstract reasoning, and computation:. Description of associations: Still very regressed fragmented. Description of abnormal or psychotic thoughts: Not expressing any gross delusional thinking. Judgment: Poor. Insight: poor]. Orientation: Appears oriented to the place and person. Recent and remote memory: Poor difficult to evaluate. Attention span and concentration: Poor. Language:. Fund of knowledge:. Mood: Not as angry irritable. Affect: Still labile but not agitated. DIAGNOSES: 1.. Schizoaffective disorder 2.. 3.. ASSESSMENT: Showing improved sleep pattern and less agitated MANAGEMENT PLAN: Change Haldol and Benadryl and oral forms. TIME SPENT: 15 minutes. Vital Signs Vital Signs Date Time Temp Pulse Resp B/P (MAP) Pulse Ox O2 Delivery O2 Flow Rate FiO2 01/04/21 09:01 129/81 01/03/21 18:06 97.6 87 18 97 01/03/21 10:30 Room Air Current Medications Current Medications Medications (Trade) Dose Ordered Sig/Marisa Route PRN Reason Start Time Stop Time Status Last Admin Dose Admin Acetaminophen (Tylenol Tab) 650 mg Q6HP PRN PO HEADACHE or MILD DISCOMFORT 11/11/20 19:40 01/03/21 19:56 Al Hydrox/Mg Hydrox/Simethicone (Mylanta) 30 ml Q4HP PRN PO HEARTBURN/INDIGESTION 11/11/20 19:40 Amlodipine Besylate (Norvasc) 5 mg DAILY PO 11/12/20 09:00 01/04/21 09:01 Benztropine Mesylate (Cogentin) 1 mg BID PO 12/13/20 09:00 01/04/21 09:01 Ceftriaxone Sodium (Rocephin) 1 gm Q24H IM 12/08/20 18:00 12/15/20 17:59 DC 12/14/20 17:36 Cephalexin Monohydrate (Keflex) 500 mg Q6H PO 12/04/20 18:00 12/08/20 18:01 DC 12/05/20 12:51 Diphenhydramine HCl (Benadryl) 50 mg BID@ IM 12/15/20 08:00 12/15/20 10:58 DC Diphenhydramine HCl (Benadryl) 50 mg BID@799,1999 IM 12/15/20 20:00 12/16/20 10:47 DC 12/15/20 22:04 Diphenhydramine HCl (Benadryl) 50 mg Q6HP PRN PO AGITATION 12/03/20 12:25 12/20/20 09:24 Diphenhydramine HCl (Benadryl) 50 mg QHS IM 12/16/20 10:45 12/16/20 10:50 DC Diphenhydramine HCl (Benadryl) 50 mg QHS IM 12/16/20 21:00 01/03/21 21:13 Diphenhydramine HCl (Benadryl) 50 mg STAT STAT IM 12/19/20 07:40 12/19/20 07:42 DC 12/19/20 07:56 Divalproex Sodium (Depakote Sprinkles) 500 mg BID PO 11/13/20 09:00 11/25/20 11:02 DC 11/25/20 09:30 Divalproex Sodium (Depakote Er) 250 mg DAILY PO 11/26/20 09:00 12/02/20 07:14 DC 12/01/20 09:55 Divalproex Sodium (Depakote Er) 500 mg BID PO 11/13/20 09:00 11/13/20 09:00 DC Divalproex Sodium (Depakote Er) 500 mg DAILY PO 12/04/20 09:00 12/06/20 10:27 DC 12/05/20 12:43 Divalproex Sodium (Depakote Er) 500 mg DAILY PO 12/02/20 09:00 12/04/20 08:53 DC Divalproex Sodium (Depakote Er) 500 mg QHS PO 11/25/20 21:00 11/30/20 22:07 DC 11/29/20 21:19 Divalproex Sodium (Depakote Er) 500 mg QHS PO 11/30/20 22:10 12/06/20 10:27 DC 12/04/20 22:00 Docusate Sodium (Colace) 100 mg BID PO 11/12/20 09:00 01/04/21 09:01 Enoxaparin Sodium (Lovenox) 40 mg DAILY SC 12/21/20 09:00 01/04/21 09:00 Haloperidol (Haldol) 5 mg BID@0800,2000 IM 12/15/20 20:00 12/16/20 10:47 DC 12/15/20 22:04 Haloperidol (Haldol) 5 mg Q6HP PRN PO AGITATION 12/03/20 12:25 12/24/20 09:59 Haloperidol (Haldol) 5 mg QHS IM 12/16/20 10:45 12/16/20 10:50 DC Haloperidol (Haldol) 5 mg QHS IM 12/16/20 21:00 01/03/21 21:13 Haloperidol (Haldol) 5 mg STAT STAT IM 12/19/20 07:40 12/19/20 07:42 DC 12/19/20 07:56 Ketorolac Tromethamine (ToRADol) 30 mg BIDP PRN IM PAIN LEVEL 6-10 12/14/20 09:20 12/17/20 08:45 Ketorolac Tromethamine (ToRADol) 30 mg Q6H PRN IM PAIN LEVEL 5-10 12/14/20 09:45 12/14/20 09:47 DC Levetiracetam (Keppra Oral Solution) 500 mg BID PO 11/12/20 09:00 01/04/21 09:00 Levothyroxine Sodium (Synthroid) 100 mcg DAILY@06 PO 11/12/20 06:00 01/04/21 06:23 Lorazepam (Ativan) 0.5 mg BID PO 11/17/20 09:00 11/18/20 08:31 DC 11/17/20 19:56 Lorazepam (Ativan) 1 mg BID PO 11/14/20 09:00 11/17/20 07:27 DC 11/16/20 20:33 Lorazepam (Ativan) 1 mg QHS PO 12/01/20 21:00 12/06/20 10:27 DC 12/04/20 21:59 Lorazepam (Ativan) 1 mg STAT STAT IM 12/17/20 15:43 12/17/20 15:45 DC 12/17/20 16:04 Lorazepam (Ativan) 1 mg TID PO 12/06/20 09:00 12/12/20 08:49 DC 12/11/20 10:31 Magnesium Hydroxide (Milk Of Magnesia) 30 ml DAILYPRN PRN PO CONSTIPATION 11/11/20 19:40 Miscellaneous (Unresolved Clarification Entry) SEE LABEL COMMENTS DAILY XX 12/11/20 09:00 12/13/20 09:04 DC Miscellaneous (Unresolved Clarification Entry) SEE LABEL COMMENTS DAILY XX 12/25/20 09:00 12/25/20 12:41 DC Miscellaneous (Unresolved Clarification Entry) SEE LABEL COMMENTS DAILY XX 12/26/20 09:00 12/26/20 10:48 DC Miscellaneous (Unresolved Clarification Entry) SEE LABEL COMMENTS DAILY XX 12/29/20 09:00 12/30/20 12:15 DC Miscellaneous (Unresolved Clarification Entry) SEE LABEL COMMENTS DAILY XX 12/30/20 09:00 01/01/21 11:18 DC Miscellaneous (Unresolved Clarification Entry) SEE LABEL COMMENTS QID XX 01/01/21 09:00 01/01/21 12:44 DC Miscellaneous (Unresolved Clarification Entry) SEE LABEL COMMENTS UNRESOLVED XX 01/04/21 00:01 Nystatin (Mycostatin Powder, Nystop) APPLY TO AREAS OF RASH BIDP PRN TOP RASH 12/15/20 18:45 12/25/20 22:46 Oxycodone/ Acetaminophen (Percocet 5mg/ 325mg Tablet) 1 tab Q6HP PRN PO MODERATE PAIN (PS 5-7) 12/13/20 16:10 12/25/20 12:40 DC 12/18/20 19:59 Pantoprazole Sodium (Protonix) 40 mg DAILY PO 11/12/20 09:00 01/04/21 09:01 Polyethylene Glycol (Miralax) 1 pkt DAILY PO 11/12/20 09:00 01/03/21 08:33 Quetiapine Fumarate (SEROquel) 100 mg QHS PO 11/13/20 21:00 11/18/20 08:31 DC 11/17/20 19:56 Quetiapine Fumarate (SEROquel) 100 mg QHS PO 11/23/20 21:00 12/01/20 09:14 DC 11/29/20 21:19 Quetiapine Fumarate (SEROquel) 200 mg QHS PO 12/01/20 21:00 01/03/21 21:01 Risperidone (RisperDAL Consta) 37.5 mg Q14D@09 IM 12/07/20 09:00 12/07/20 10:54 DC Risperidone (RisperDAL Consta) 37.5 mg Q14D@ IM 12/08/20 09:00 12/22/20 09:46 Risperidone (RisperDAL Consta) 37.5 mg Q14D@ IM 12/22/20 09:30 UNV Risperidone (RisperDAL LIQUID) 4 mg QHS PO 11/12/20 21:00 11/14/20 08:57 DC 11/12/20 21:48 Risperidone (RisperDAL) 2 mg BID PO 11/14/20 09:00 11/21/20 09:34 DC 11/20/20 21:02 Risperidone (RisperDAL) 2 mg QHS PO 11/21/20 21:00 11/23/20 08:57 DC 11/22/20 20:41 Risperidone (RisperDAL) 2 mg QHS PO 12/13/20 21:00 12/22/20 09:28 DC 12/20/20 21:55 Risperidone (RisperDAL) 3 mg QHS PO 11/23/20 21:00 11/28/20 09:00 DC 11/27/20 21:58 Risperidone (RisperDAL) 4 mg DAILY@1700 PO 12/07/20 17:00 12/13/20 09:03 DC Risperidone (RisperDAL) 4 mg QHS PO 11/28/20 21:00 12/06/20 10:27 DC 12/04/20 22:01 Risperidone (RisperDAL) 4 mg QPM PO 12/06/20 17:00 12/07/20 09:42 DC 12/06/20 20:49 Sodium Chloride (Thornton Saline Nasal Gel) APPLY SMALL RADHIKA... Q4HP PRN NA NASAL DRYNESS 12/02/20 10:50 01/01/21 10:49 DC Trazodone HCl (Desyrel) 50 mg QHSP PRN PO INSOMNIA 11/11/20 19:40 01/02/21 22:40 Valproic Acid (Depakene Solution) 500 mg 0800,1600 PO 12/06/20 08:00 01/04/21 09:01 Valproic Acid (Depakene) 500 mg BID PO 12/06/20 09:00 Cancel Allergies Coded Allergies: Sulfa (Sulfonamide Antibiotics) (Verified Allergy, Unknown, 01/21/19) aspirin (Verified Allergy, Unknown, 01/21/19) MARISOL HURD M.D. Jan 04, 2021 10:07
[2021-01-04] MEDS: ACETAMINOPHEN TAB 650MG DOSE (2X325MG) PO PRN ×2 (16:13→23:43)
[2021-01-04 17:37] VITALS: BP 130/65
[2021-01-04] MEDS: haloperidoL 5 MG TAB PO SCH (21:29)
[2021-01-04] MEDS: QUEtiapine FUMARATE 200 MG TAB PO SCH (21:29)
[2021-01-04] MEDS: diphenhydrAMINE 50MG CAP PO SCH (21:29)
[2021-01-05] MEDS: LEVOTHYROXINE 100MCG TABLET (0.1MG) PO SCH (05:21)
[2021-01-05] MEDS: VALPROIC ACID 250MG/5ML SOL ORAL SYRINGE *DRAW UP EXACT DOSE PO SCH ×2 (08:00→16:01)
[2021-01-05] MEDS: levETIRAcetam ORAL SOLUTION 500 MG/5 ML UDC PO SCH ×2 (09:00→21:11)
[2021-01-05] MEDS: MIRALAX *UNIT DOSE* 17GM PACKET PO SCH (09:00)
[2021-01-05] MEDS: BENZTROPINE 1 MG TAB PO SCH ×2 (09:41→21:11)
[2021-01-05] MEDS: DOCUSATE SODIUM 100MG CAPSULE PO SCH ×2 (09:41→21:11)
[2021-01-05] MEDS: PANTOPRAZOLE 40MG TAB (PROTONIX) PO SCH (09:41)
[2021-01-05] MEDS: risperiDONE LONG-ACTING 37.5 MG/2 ML INJ (J2794 PER 0.5MG) IM SCH (09:41)
[2021-01-05] MEDS: amLODIPine 5 MG TAB PO SCH (09:41)
[2021-01-05] MEDS: ENOXAPARIN 40MG/0.4ML SYRINGE (J1650 PER 10MG) SC SCH (09:42)
--- NOTE | 2021-01-05 10:59 | MHIPNPDOC ---
[facility] Progress Note Progress Note DATE OF SERVICE: 01/05/21 The patient is fully cooperated with oral medications and showing some improvement. She slept okay is eating and is in no acute distress and not as angry or agitated and speech is better organized. She has been evaluated for level of care and is also waiting for OT and RT evaluation. We will continue current medication and supportive therapy. HISTORY:. VITAL SIGNS: See below. NEW TEST RESULTS:. CURRENT MEDICATIONS: See below. MENTAL STATUS EXAMINATION: Patient is a 70-year old female, who is in no acute distress. Speech: Is not as loud and more relevant. Language skills are fair. Thought processes including: More relevant. Thought content: Offers no new complaint. Abstract reasoning, and computation:. Description of associations: Better organized. Description of abnormal or psychotic thoughts: Does not appear as paranoid. Judgment: Poor. Insight: Poor. Orientation: Oriented to place and person. Recent and remote memory: No gross confusion. Attention span and concentration:. Language:. Fund of knowledge:. Mood: Not as irritable. Affect: Not as labile. DIAGNOSES: 1.. Schizoaffective disorder 2.. 3.. ASSESSMENT: Cooperating with the oral medicine and showing some improvement MANAGEMENT PLAN: Continue with the current treatment. TIME SPENT: 15 minutes. Vital Signs Vital Signs Date Time Temp Pulse Resp B/P (MAP) Pulse Ox O2 Delivery O2 Flow Rate FiO2 01/05/21 09:41 134/76 01/04/21 17:37 97.2 88 18 01/04/21 17:12 Room Air 01/03/21 18:06 97 Current Medications Current Medications Medications (Trade) Dose Ordered Sig/Marisa Route PRN Reason Start Time Stop Time Status Last Admin Dose Admin Acetaminophen (Tylenol Tab) 650 mg Q6HP PRN PO HEADACHE or MILD DISCOMFORT 11/11/20 19:40 01/04/21 23:43 Al Hydrox/Mg Hydrox/Simethicone (Mylanta) 30 ml Q4HP PRN PO HEARTBURN/INDIGESTION 11/11/20 19:40 Amlodipine Besylate (Norvasc) 5 mg DAILY PO 11/12/20 09:00 01/05/21 09:41 Benztropine Mesylate (Cogentin) 1 mg BID PO 12/13/20 09:00 01/05/21 09:41 Ceftriaxone Sodium (Rocephin) 1 gm Q24H IM 12/08/20 18:00 12/15/20 17:59 DC 12/14/20 17:36 Cephalexin Monohydrate (Keflex) 500 mg Q6H PO 12/04/20 18:00 12/08/20 18:01 DC 12/05/20 12:51 Diphenhydramine HCl (Benadryl) 50 mg BID@08,1999 IM 12/15/20 08:00 12/15/20 10:58 DC Diphenhydramine HCl (Benadryl) 50 mg BID@0800,1999 IM 12/15/20 20:00 12/16/20 10:47 DC 12/15/20 22:04 Diphenhydramine HCl (Benadryl) 50 mg Q6HP PRN PO AGITATION 12/03/20 12:25 12/20/20 09:24 Diphenhydramine HCl (Benadryl) 50 mg QHS IM 12/16/20 10:45 12/16/20 10:50 DC Diphenhydramine HCl (Benadryl) 50 mg QHS IM 12/16/20 21:00 01/04/21 10:02 DC 01/03/21 21:13 Diphenhydramine HCl (Benadryl) 50 mg QHS PO 01/04/21 21:00 01/04/21 21:29 Diphenhydramine HCl (Benadryl) 50 mg STAT STAT IM 12/19/20 07:40 12/19/20 07:42 DC 12/19/20 07:56 Divalproex Sodium (Depakote Sprinkles) 500 mg BID PO 11/13/20 09:00 11/25/20 11:02 DC 11/25/20 09:30 Divalproex Sodium (Depakote Er) 250 mg DAILY PO 11/26/20 09:00 12/02/20 07:14 DC 12/01/20 09:55 Divalproex Sodium (Depakote Er) 500 mg BID PO 11/13/20 09:00 11/13/20 09:00 DC Divalproex Sodium (Depakote Er) 500 mg DAILY PO 12/04/20 09:00 12/06/20 10:27 DC 12/05/20 12:43 Divalproex Sodium (Depakote Er) 500 mg DAILY PO 12/02/20 09:00 12/04/20 08:53 DC Divalproex Sodium (Depakote Er) 500 mg QHS PO 11/25/20 21:00 11/30/20 22:07 DC 11/29/20 21:19 Divalproex Sodium (Depakote Er) 500 mg QHS PO 11/30/20 22:10 12/06/20 10:27 DC 12/04/20 22:00 Docusate Sodium (Colace) 100 mg BID PO 11/12/20 09:00 01/05/21 09:41 Enoxaparin Sodium (Lovenox) 40 mg DAILY SC 12/21/20 09:00 01/05/21 09:42 Haloperidol (Haldol) 5 mg BID@0800,2000 IM 12/15/20 20:00 12/16/20 10:47 DC 12/15/20 22:04 Haloperidol (Haldol) 5 mg Q6HP PRN PO AGITATION 12/03/20 12:25 12/24/20 09:59 Haloperidol (Haldol) 5 mg QHS IM 12/16/20 10:45 12/16/20 10:50 DC Haloperidol (Haldol) 5 mg QHS IM 12/16/20 21:00 01/04/21 10:02 DC 01/03/21 21:13 Haloperidol (Haldol) 5 mg QHS PO 01/04/21 21:00 01/04/21 21:29 Haloperidol (Haldol) 5 mg STAT STAT IM 12/19/20 07:40 12/19/20 07:42 DC 12/19/20 07:56 Ketorolac Tromethamine (ToRADol) 30 mg BIDP PRN IM PAIN LEVEL 6-10 12/14/20 09:20 12/17/20 08:45 Ketorolac Tromethamine (ToRADol) 30 mg Q6H PRN IM PAIN LEVEL 5-10 12/14/20 09:45 12/14/20 09:47 DC Levetiracetam (Keppra Oral Solution) 500 mg BID PO 11/12/20 09:00 01/05/21 09:00 Levothyroxine Sodium (Synthroid) 100 mcg DAILY@06 PO 11/12/20 06:00 01/05/21 05:21 Lorazepam (Ativan) 0.5 mg BID PO 11/17/20 09:00 11/18/20 08:31 DC 11/17/20 19:56 Lorazepam (Ativan) 1 mg BID PO 11/14/20 09:00 11/17/20 07:27 DC 11/16/20 20:33 Lorazepam (Ativan) 1 mg QHS PO 12/01/20 21:00 12/06/20 10:27 DC 12/04/20 21:59 Lorazepam (Ativan) 1 mg STAT STAT IM 12/17/20 15:43 12/17/20 15:45 DC 12/17/20 16:04 Lorazepam (Ativan) 1 mg TID PO 12/06/20 09:00 12/12/20 08:49 DC 12/11/20 10:31 Magnesium Hydroxide (Milk Of Magnesia) 30 ml DAILYPRN PRN PO CONSTIPATION 11/11/20 19:40 Miscellaneous (Unresolved Clarification Entry) SEE LABEL COMMENTS DAILY XX 12/11/20 09:00 12/13/20 09:04 DC Miscellaneous (Unresolved Clarification Entry) SEE LABEL COMMENTS DAILY XX 12/25/20 09:00 12/25/20 12:41 DC Miscellaneous (Unresolved Clarification Entry) SEE LABEL COMMENTS DAILY XX 12/26/20 09:00 12/26/20 10:48 DC Miscellaneous (Unresolved Clarification Entry) SEE LABEL COMMENTS DAILY XX 12/29/20 09:00 12/30/20 12:15 DC Miscellaneous (Unresolved Clarification Entry) SEE LABEL COMMENTS DAILY XX 12/30/20 09:00 01/01/21 11:18 DC Miscellaneous (Unresolved Clarification Entry) SEE LABEL COMMENTS QID XX 01/01/21 09:00 01/01/21 12:44 DC Miscellaneous (Unresolved Clarification Entry) SEE LABEL COMMENTS UNRESOLVED XX 01/04/21 00:01 01/04/21 10:13 DC Nystatin (Mycostatin Powder, Nystop) APPLY TO AREAS OF RASH BIDP PRN TOP RASH 12/15/20 18:45 12/25/20 22:46 Oxycodone/ Acetaminophen (Percocet 5mg/ 325mg Tablet) 1 tab Q6HP PRN PO MODERATE PAIN (PS 5-7) 12/13/20 16:10 12/25/20 12:40 DC 12/18/20 19:59 Pantoprazole Sodium (Protonix) 40 mg DAILY PO 11/12/20 09:00 01/05/21 09:41 Polyethylene Glycol (Miralax) 1 pkt DAILY PO 11/12/20 09:00 01/03/21 08:33 Quetiapine Fumarate (SEROquel) 100 mg QHS PO 11/13/20 21:00 11/18/20 08:31 DC 11/17/20 19:56 Quetiapine Fumarate (SEROquel) 100 mg QHS PO 11/23/20 21:00 12/01/20 09:14 DC 11/29/20 21:19 Quetiapine Fumarate (SEROquel) 200 mg QHS PO 12/01/20 21:00 01/04/21 21:29 Risperidone (RisperDAL Consta) 37.5 mg Q14D@09 IM 12/07/20 09:00 12/07/20 10:54 DC Risperidone (RisperDAL Consta) 37.5 mg Q14D@09 IM 12/08/20 09:00 01/05/21 09:41 Risperidone (RisperDAL Consta) 37.5 mg Q14D@09 IM 12/22/20 09:30 UNV Risperidone (RisperDAL LIQUID) 4 mg QHS PO 11/12/20 21:00 11/14/20 08:57 DC 11/12/20 21:48 Risperidone (RisperDAL) 2 mg BID PO 11/14/20 09:00 11/21/20 09:34 DC 11/20/20 21:02 Risperidone (RisperDAL) 2 mg QHS PO 11/21/20 21:00 11/23/20 08:57 DC 11/22/20 20:41 Risperidone (RisperDAL) 2 mg QHS PO 12/13/20 21:00 12/22/20 09:28 DC 12/20/20 21:55 Risperidone (RisperDAL) 3 mg QHS PO 11/23/20 21:00 11/28/20 09:00 DC 11/27/20 21:58 Risperidone (RisperDAL) 4 mg DAILY@1700 PO 12/07/20 17:00 12/13/20 09:03 DC Risperidone (RisperDAL) 4 mg QHS PO 11/28/20 21:00 12/06/20 10:27 DC 12/04/20 22:01 Risperidone (RisperDAL) 4 mg QPM PO 12/06/20 17:00 12/07/20 09:42 DC 12/06/20 20:49 Sodium Chloride ([place] Saline Nasal Gel) APPLY SMALL RADHIKA... Q4HP PRN NA NASAL DRYNESS 12/02/20 10:50 01/01/21 10:49 DC Trazodone HCl (Desyrel) 50 mg QHSP PRN PO INSOMNIA 11/11/20 19:40 01/02/21 22:40 Valproic Acid (Depakene Solution) 500 mg 0800,1600 PO 12/06/20 08:00 01/05/21 08:00 Valproic Acid (Depakene) 500 mg BID PO 12/06/20 09:00 Cancel Allergies Coded Allergies: Sulfa (Sulfonamide Antibiotics) (Verified Allergy, Unknown, 01/21/19) aspirin (Verified Allergy, Unknown, 01/21/19) MARISOL HURD M.D. Jan 05, 2021 10:59
[2021-01-05 19:18] VITALS: BP 120/57
[2021-01-05] MEDS: diphenhydrAMINE 50MG CAP PO SCH (21:11)
[2021-01-05] MEDS: QUEtiapine FUMARATE 200 MG TAB PO SCH (21:11)
[2021-01-05] MEDS: haloperidoL 5 MG TAB PO SCH (21:11)
[2021-01-06] MEDS ORDERED: UNRESOLVED CLARIFICATION ENTRY XX SCH ×2 (00:01)
[2021-01-06] MEDS: LEVOTHYROXINE 100MCG TABLET (0.1MG) PO SCH (06:54)
--- NOTE | 2021-01-06 08:47 | MHIPNPDOC ---
[facility] Progress Note Progress Note DATE OF SERVICE: 01/06/21 The patient is showing definite improvement in her sleep pattern and mental status and behavior. She is fully cooperating with oral medicine and able to come out to the lounge and eating and also responding and much more clear and rational manner. She is asking when she will be going home but also understands that she may need extra help when she goes home and was explained that we evaluating the need for support and supervision in the long run. She reports feeling good and has no physical complaint and does not appear to be in any ac chris distress. We will continue with the current medications and further assess with the OT and PT evaluation. HISTORY:. VITAL SIGNS: See below. NEW TEST RESULTS:. CURRENT MEDICATIONS: See below. MENTAL STATUS EXAMINATION: Patient is a 70-year old female, who is in no acute distress. Speech: Is more coherent and comprehensible. Language skills are fair. Thought processes including: More relevant and coherent. Thought content: Denies any problem. Abstract reasoning, and computation:. Description of associations: Better organized. Description of abnormal or psychotic thoughts: No gross paranoid thoughts. Judgment: Fair. Insight: Poor. Orientation: He is oriented to place and person. Recent and remote memory: No gross impairment. Attention span and concentration:. Language:. Fund of knowledge:. Mood: Reports feeling good. Affect: More animated and appropriate. DIAGNOSES: 1.. Schizoaffective disorder 2.. 3.. ASSESSMENT: Continue with the current treatment MANAGEMENT PLAN: Develop safe discharge plan. TIME SPENT: 15 minutes. Vital Signs Vital Signs Date Time Temp Pulse Resp B/P (MAP) Pulse Ox O2 Delivery O2 Flow Rate FiO2 01/05/21 19:18 97.5 78 18 120/57 (78) 01/04/21 17:12 Room Air 01/03/21 18:06 97 Current Medications Current Medications Medications (Trade) Dose Ordered Sig/Marisa Route PRN Reason Start Time Stop Time Status Last Admin Dose Admin Acetaminophen (Tylenol Tab) 650 mg Q6HP PRN PO HEADACHE or MILD DISCOMFORT 11/11/20 19:40 01/04/21 23:43 Al Hydrox/Mg Hydrox/Simethicone (Mylanta) 30 ml Q4HP PRN PO HEARTBURN/INDIGESTION 11/11/20 19:40 Amlodipine Besylate (Norvasc) 5 mg DAILY PO 11/12/20 09:00 01/05/21 09:41 Benztropine Mesylate (Cogentin) 1 mg BID PO 12/13/20 09:00 01/05/21 21:11 Ceftriaxone Sodium (Rocephin) 1 gm Q24H IM 12/08/20 18:00 12/15/20 17:59 DC 12/14/20 17:36 Cephalexin Monohydrate (Keflex) 500 mg Q6H PO 12/04/20 18:00 12/08/20 18:01 DC 12/05/20 12:51 Diphenhydramine HCl (Benadryl) 50 mg BID@08,1999 IM 12/15/20 08:00 12/15/20 10:58 DC Diphenhydramine HCl (Benadryl) 50 mg BID@799,1999 IM 12/15/20 20:00 12/16/20 10:47 DC 12/15/20 22:04 Diphenhydramine HCl (Benadryl) 50 mg Q6HP PRN PO AGITATION 12/03/20 12:25 12/20/20 09:24 Diphenhydramine HCl (Benadryl) 50 mg QHS IM 12/16/20 10:45 12/16/20 10:50 DC Diphenhydramine HCl (Benadryl) 50 mg QHS IM 12/16/20 21:00 01/04/21 10:02 DC 01/03/21 21:13 Diphenhydramine HCl (Benadryl) 50 mg QHS PO 01/04/21 21:00 01/05/21 21:11 Diphenhydramine HCl (Benadryl) 50 mg STAT STAT IM 12/19/20 07:40 12/19/20 07:42 DC 12/19/20 07:56 Divalproex Sodium (Depakote Sprinkles) 500 mg BID PO 11/13/20 09:00 11/25/20 11:02 DC 11/25/20 09:30 Divalproex Sodium (Depakote Er) 250 mg DAILY PO 11/26/20 09:00 12/02/20 07:14 DC 12/01/20 09:55 Divalproex Sodium (Depakote Er) 500 mg BID PO 11/13/20 09:00 11/13/20 09:00 DC Divalproex Sodium (Depakote Er) 500 mg DAILY PO 12/04/20 09:00 12/06/20 10:27 DC 12/05/20 12:43 Divalproex Sodium (Depakote Er) 500 mg DAILY PO 12/02/20 09:00 12/04/20 08:53 DC Divalproex Sodium (Depakote Er) 500 mg QHS PO 11/25/20 21:00 11/30/20 22:07 DC 11/29/20 21:19 Divalproex Sodium (Depakote Er) 500 mg QHS PO 11/30/20 22:10 12/06/20 10:27 DC 12/04/20 22:00 Docusate Sodium (Colace) 100 mg BID PO 11/12/20 09:00 01/05/21 21:11 Enoxaparin Sodium (Lovenox) 40 mg DAILY SC 12/21/20 09:00 01/05/21 09:42 Haloperidol (Haldol) 5 mg BID@0800,2000 IM 12/15/20 20:00 12/16/20 10:47 DC 12/15/20 22:04 Haloperidol (Haldol) 5 mg Q6HP PRN PO AGITATION 12/03/20 12:25 12/24/20 09:59 Haloperidol (Haldol) 5 mg QHS IM 12/16/20 10:45 12/16/20 10:50 DC Haloperidol (Haldol) 5 mg QHS IM 12/16/20 21:00 01/04/21 10:02 DC 01/03/21 21:13 Haloperidol (Haldol) 5 mg QHS PO 01/04/21 21:00 01/05/21 21:11 Haloperidol (Haldol) 5 mg STAT STAT IM 12/19/20 07:40 12/19/20 07:42 DC 12/19/20 07:56 Ketorolac Tromethamine (ToRADol) 30 mg BIDP PRN IM PAIN LEVEL 6-10 12/14/20 09:20 12/17/20 08:45 Ketorolac Tromethamine (ToRADol) 30 mg Q6H PRN IM PAIN LEVEL 5-10 12/14/20 09:45 12/14/20 09:47 DC Levetiracetam (Keppra Oral Solution) 500 mg BID PO 11/12/20 09:00 01/05/21 21:11 Levothyroxine Sodium (Synthroid) 100 mcg DAILY@06 PO 11/12/20 06:00 01/06/21 06:54 Lorazepam (Ativan) 0.5 mg BID PO 11/17/20 09:00 11/18/20 08:31 DC 11/17/20 19:56 Lorazepam (Ativan) 1 mg BID PO 11/14/20 09:00 11/17/20 07:27 DC 11/16/20 20:33 Lorazepam (Ativan) 1 mg QHS PO 12/01/20 21:00 12/06/20 10:27 DC 12/04/20 21:59 Lorazepam (Ativan) 1 mg STAT STAT IM 12/17/20 15:43 12/17/20 15:45 DC 12/17/20 16:04 Lorazepam (Ativan) 1 mg TID PO 12/06/20 09:00 12/12/20 08:49 DC 12/11/20 10:31 Magnesium Hydroxide (Milk Of Magnesia) 30 ml DAILYPRN PRN PO CONSTIPATION 11/11/20 19:40 Miscellaneous (Unresolved Clarification Entry) SEE LABEL COMMENTS DAILY XX 12/11/20 09:00 12/13/20 09:04 DC Miscellaneous (Unresolved Clarification Entry) SEE LABEL COMMENTS DAILY XX 12/25/20 09:00 12/25/20 12:41 DC Miscellaneous (Unresolved Clarification Entry) SEE LABEL COMMENTS DAILY XX 12/26/20 09:00 12/26/20 10:48 DC Miscellaneous (Unresolved Clarification Entry) SEE LABEL COMMENTS DAILY XX 12/29/20 09:00 12/30/20 12:15 DC Miscellaneous (Unresolved Clarification Entry) SEE LABEL COMMENTS DAILY XX 12/30/20 09:00 01/01/21 11:18 DC Miscellaneous (Unresolved Clarification Entry) SEE LABEL COMMENTS QID XX 01/01/21 09:00 01/01/21 12:44 DC Miscellaneous (Unresolved Clarification Entry) SEE LABEL COMMENTS UNRESOLVED XX 01/04/21 00:01 01/04/21 10:13 DC Miscellaneous (Unresolved Clarification Entry) SEE LABEL COMMENTS UNRESOLVED XX 01/06/21 00:01 Nystatin (Mycostatin Powder, Nystop) APPLY TO AREAS OF RASH BIDP PRN TOP RASH 12/15/20 18:45 12/25/20 22:46 Oxycodone/ Acetaminophen (Percocet 5mg/ 325mg Tablet) 1 tab Q6HP PRN PO MODERATE PAIN (PS 5-7) 12/13/20 16:10 12/25/20 12:40 DC 12/18/20 19:59 Pantoprazole Sodium (Protonix) 40 mg DAILY PO 11/12/20 09:00 01/05/21 09:41 Polyethylene Glycol (Miralax) 1 pkt DAILY PO 11/12/20 09:00 01/03/21 08:33 Quetiapine Fumarate (SEROquel) 100 mg QHS PO 11/13/20 21:00 11/18/20 08:31 DC 11/17/20 19:56 Quetiapine Fumarate (SEROquel) 100 mg QHS PO 11/23/20 21:00 12/01/20 09:14 DC 11/29/20 21:19 Quetiapine Fumarate (SEROquel) 200 mg QHS PO 12/01/20 21:00 01/05/21 21:11 Risperidone (RisperDAL Consta) 37.5 mg Q14D@09 IM 12/07/20 09:00 12/07/20 10:54 DC Risperidone (RisperDAL Consta) 37.5 mg Q14D@09 IM 12/08/20 09:00 01/05/21 09:41 Risperidone (RisperDAL Consta) 37.5 mg Q14D@09 IM 12/22/20 09:30 UNV Risperidone (RisperDAL LIQUID) 4 mg QHS PO 11/12/20 21:00 11/14/20 08:57 DC 11/12/20 21:48 Risperidone (RisperDAL) 2 mg BID PO 11/14/20 09:00 11/21/20 09:34 DC 11/20/20 21:02 Risperidone (RisperDAL) 2 mg QHS PO 11/21/20 21:00 11/23/20 08:57 DC 11/22/20 20:41 Risperidone (RisperDAL) 2 mg QHS PO 12/13/20 21:00 12/22/20 09:28 DC 12/20/20 21:55 Risperidone (RisperDAL) 3 mg QHS PO 11/23/20 21:00 11/28/20 09:00 DC 11/27/20 21:58 Risperidone (RisperDAL) 4 mg DAILY@1700 PO 12/07/20 17:00 12/13/20 09:03 DC Risperidone (RisperDAL) 4 mg QHS PO 11/28/20 21:00 12/06/20 10:27 DC 12/04/20 22:01 Risperidone (RisperDAL) 4 mg QPM PO 12/06/20 17:00 12/07/20 09:42 DC 12/06/20 20:49 Sodium Chloride ([place] Saline Nasal Gel) APPLY SMALL RADHIKA... Q4HP PRN NA NASAL DRYNESS 12/02/20 10:50 01/01/21 10:49 DC Trazodone HCl (Desyrel) 50 mg QHSP PRN PO INSOMNIA 11/11/20 19:40 01/02/21 22:40 Valproic Acid (Depakene Solution) 500 mg 0800,1600 PO 12/06/20 08:00 01/05/21 16:01 Valproic Acid (Depakene) 500 mg BID PO 12/06/20 09:00 Cancel Allergies Coded Allergies: Sulfa (Sulfonamide Antibiotics) (Verified Allergy, Unknown, 01/21/19) aspirin (Verified Allergy, Unknown, 01/21/19) MARISOL HURD M.D. Jan 06, 2021 08:47
[2021-01-06] MEDS: VALPROIC ACID 250MG/5ML SOL ORAL SYRINGE *DRAW UP EXACT DOSE PO SCH ×2 (08:50→16:12)
[2021-01-06] MEDS: DOCUSATE SODIUM 100MG CAPSULE PO SCH ×2 (08:51→20:34)
[2021-01-06] MEDS: PANTOPRAZOLE 40MG TAB (PROTONIX) PO SCH (08:51)
[2021-01-06] MEDS: BENZTROPINE 1 MG TAB PO SCH ×2 (08:51→20:35)
[2021-01-06] MEDS: levETIRAcetam ORAL SOLUTION 500 MG/5 ML UDC PO SCH ×2 (08:53→20:33)
[2021-01-06] MEDS: ENOXAPARIN 40MG/0.4ML SYRINGE (J1650 PER 10MG) SC SCH (09:00)
[2021-01-06] MEDS: amLODIPine 5 MG TAB PO SCH (09:00)
[2021-01-06] MEDS: MIRALAX *UNIT DOSE* 17GM PACKET PO SCH (09:00)
[2021-01-06] MEDS: ACETAMINOPHEN TAB 650MG DOSE (2X325MG) PO PRN ×2 (09:16→18:45)
[2021-01-06 17:10] VITALS: BP 138/73
[2021-01-06] MEDS: diphenhydrAMINE 50MG CAP PO SCH (20:34)
[2021-01-06] MEDS: haloperidoL 5 MG TAB PO SCH (20:34)
[2021-01-06] MEDS: QUEtiapine FUMARATE 200 MG TAB PO SCH (20:34)
[2021-01-07] MEDS: LEVOTHYROXINE 100MCG TABLET (0.1MG) PO SCH (06:28)
[2021-01-07 07:16] VITALS: BP 148/61
[2021-01-07] MEDS: VALPROIC ACID 250MG/5ML SOL ORAL SYRINGE *DRAW UP EXACT DOSE PO SCH ×2 (07:56→16:11)
[2021-01-07] MEDS: levETIRAcetam ORAL SOLUTION 500 MG/5 ML UDC PO SCH ×2 (09:27→21:56)
[2021-01-07] MEDS: BENZTROPINE 1 MG TAB PO SCH ×2 (09:54→21:56)
[2021-01-07] MEDS: MIRALAX *UNIT DOSE* 17GM PACKET PO SCH (09:54)
[2021-01-07] MEDS: amLODIPine 5 MG TAB PO SCH (09:54)
[2021-01-07] MEDS: DOCUSATE SODIUM 100MG CAPSULE PO SCH ×2 (09:55→21:56)
[2021-01-07] MEDS: PANTOPRAZOLE 40MG TAB (PROTONIX) PO SCH (09:55)
[2021-01-07] MEDS: ACETAMINOPHEN TAB 650MG DOSE (2X325MG) PO PRN ×2 (13:29→23:46)
[2021-01-07 17:06] VITALS: BP 142/70
[2021-01-07] MEDS: QUEtiapine FUMARATE 200 MG TAB PO SCH (21:56)
[2021-01-07] MEDS: diphenhydrAMINE 50MG CAP PO SCH (21:56)
[2021-01-07] MEDS: haloperidoL 5 MG TAB PO SCH (21:56)
[2021-01-08] MEDS: LEVOTHYROXINE 100MCG TABLET (0.1MG) PO SCH (06:04)
[2021-01-08 06:32] VITALS: BP 141/63
[2021-01-08] MEDS: VALPROIC ACID 250MG/5ML SOL ORAL SYRINGE *DRAW UP EXACT DOSE PO SCH ×2 (07:28→15:11)
[2021-01-08] MEDS: MIRALAX *UNIT DOSE* 17GM PACKET PO SCH (09:00)
[2021-01-08] MEDS: BENZTROPINE 1 MG TAB PO SCH ×2 (09:48→20:58)
[2021-01-08] MEDS: DOCUSATE SODIUM 100MG CAPSULE PO SCH ×2 (09:48→20:58)
[2021-01-08] MEDS: levETIRAcetam ORAL SOLUTION 500 MG/5 ML UDC PO SCH ×2 (09:49→20:58)
[2021-01-08] MEDS: amLODIPine 5 MG TAB PO SCH (09:49)
[2021-01-08] MEDS: PANTOPRAZOLE 40MG TAB (PROTONIX) PO SCH (09:49)
[2021-01-08] MEDS: ACETAMINOPHEN TAB 650MG DOSE (2X325MG) PO PRN (10:14)
[2021-01-08 18:12] VITALS: BP 142/81
[2021-01-08] MEDS: diphenhydrAMINE 50MG CAP PO SCH (20:58)
[2021-01-08] MEDS: haloperidoL 5 MG TAB PO SCH (20:58)
[2021-01-08] MEDS: QUEtiapine FUMARATE 200 MG TAB PO SCH (20:58)
[2021-01-09] MEDS: LEVOTHYROXINE 100MCG TABLET (0.1MG) PO SCH (06:22)
[2021-01-09 06:39] VITALS: BP 133/63
[2021-01-09] MEDS: amLODIPine 5 MG TAB PO SCH (10:07)
[2021-01-09] MEDS: VALPROIC ACID 250MG/5ML SOL ORAL SYRINGE *DRAW UP EXACT DOSE PO SCH ×2 (10:07→16:11)
[2021-01-09] MEDS: PANTOPRAZOLE 40MG TAB (PROTONIX) PO SCH (10:07)
[2021-01-09] MEDS: levETIRAcetam ORAL SOLUTION 500 MG/5 ML UDC PO SCH ×2 (10:08→21:42)
[2021-01-09] MEDS: DOCUSATE SODIUM 100MG CAPSULE PO SCH ×2 (10:08→21:42)
[2021-01-09] MEDS: MIRALAX *UNIT DOSE* 17GM PACKET PO SCH (10:08)
[2021-01-09] MEDS: BENZTROPINE 1 MG TAB PO SCH ×2 (10:08→21:41)
--- NOTE | 2021-01-09 16:17 | MHIPNPDOC ---
[facility] Progress Note Progress Note DATE OF SERVICE: 01/09/21 HISTORY: Patient is a 70 y/o woman with a reported PPH of bipolar disorder who was admitted to medicine November 04 after a suspected overdose, home was noted to be a disorganized living situation. On the unit patient is a 1:1 for fall risk/unsteady gait. Per chart review patient has made improvements on medications and is pending an OT/PT evaluation for disposition. Interval: Charts reviewed. Janice is somewhat irritable at first, but becomes more calm with the course of interview. She remains somewhat disorganized, distractible and hyperverbal at times, but no signs of aggression. She denies psychiatric symptoms and was partially cooperative to interview, but having tangential, garbled speech at times. Reports some pain, tenderness in R ankle, nursing staff made aware, she was able to move joint, minimal swelling noted, warm to touch. Continues to be able to ambulate w/o difficulty VITAL SIGNS: See below. NEW TEST RESULTS: None CURRENT MEDICATIONS: See below. MENTAL STATUS EXAMINATION: Patient is a 70-year old female, who appears older than her stated age, elevated BMI, fair hygiene, fair eye contact at times Speech: Is increased in amount Language skills are fair Thought processes including: circumstantial Thought content: Denies suicidal or homicidal thoughts Abstract reasoning, and computation: poor Description of associations: fair Description of abnormal or psychotic thoughts: Denies Judgment: Poor, improving Insight: Poor Orientation: place, person Recent and remote memory: Poor Attention span and concentration: Poor Language: Intact Fund of knowledge: Unable to fully assess from interview Mood: okay Affect: switches between irritable and calm DIAGNOSES: 1. Schizoaffective disorder per hx, R/O neurocognitive disorder 2. R/O Bipolar disorder, schizophrenia 3. R ankle pain/tenderness ASSESSMENT: Patient continues to be improved based on interview, as compared to chart review. Despite this continues to be mildly disorganized, has reduced paranoia. Some tenderness/ pain noted in right ankle, has as needed Tylenol, relatively normal-appearing apart from mild swelling, nursing made aware, will continue to follow for any other medical complaints. Patient unable to care for herself if she returns home, which poses a risk for safety if discharged, overdosed lead admission, needs extended stay to arrange for safe discharge plan with adjusted modifiable factors (current living situation). MANAGEMENT PLAN: Continue with current medication regimen. Coordinated with treatment team, fair range for possible assisted living, patient educated about creating a safe home environment and possibilities on discharge, was ambivalent as she wants somebody to help her with medications and medical concerns, but also likes her current home. TIME SPENT: 25 minutes. Vital Signs Vital Signs Date Time Temp Pulse Resp B/P (MAP) Pulse Ox O2 Delivery O2 Flow Rate FiO2 01/09/21 10:07 92 131/73 01/09/21 06:39 97.8 16 01/08/21 09:30 Room Air 01/08/21 06:32 95 Current Medications Current Medications Medications (Trade) Dose Ordered Sig/Marisa Route PRN Reason Start Time Stop Time Status Last Admin Dose Admin Acetaminophen (Tylenol Tab) 650 mg Q6HP PRN PO HEADACHE or MILD DISCOMFORT 11/11/20 19:40 01/08/21 10:14 Al Hydrox/Mg Hydrox/Simethicone (Mylanta) 30 ml Q4HP PRN PO HEARTBURN/INDIGESTION 11/11/20 19:40 Amlodipine Besylate (Norvasc) 5 mg DAILY PO 11/12/20 09:00 01/09/21 10:07 Benztropine Mesylate (Cogentin) 1 mg BID PO 12/13/20 09:00 01/09/21 10:08 Ceftriaxone Sodium (Rocephin) 1 gm Q24H IM 12/08/20 18:00 12/15/20 17:59 DC 12/14/20 17:36 Cephalexin Monohydrate (Keflex) 500 mg Q6H PO 12/04/20 18:00 12/08/20 18:01 DC 12/05/20 12:51 Diphenhydramine HCl (Benadryl) 50 mg BID@799,1999 IM 12/15/20 08:00 12/15/20 10:58 DC Diphenhydramine HCl (Benadryl) 50 mg BID@00,1999 IM 12/15/20 20:00 12/16/20 10:47 DC 12/15/20 22:04 Diphenhydramine HCl (Benadryl) 50 mg Q6HP PRN PO AGITATION 12/03/20 12:25 12/20/20 09:24 Diphenhydramine HCl (Benadryl) 50 mg QHS IM 12/16/20 10:45 12/16/20 10:50 DC Diphenhydramine HCl (Benadryl) 50 mg QHS IM 12/16/20 21:00 01/04/21 10:02 DC 01/03/21 21:13 Diphenhydramine HCl (Benadryl) 50 mg QHS PO 01/04/21 21:00 01/08/21 20:58 Diphenhydramine HCl (Benadryl) 50 mg STAT STAT IM 12/19/20 07:40 12/19/20 07:42 DC 12/19/20 07:56 Divalproex Sodium (Depakote Sprinkles) 500 mg BID PO 11/13/20 09:00 11/25/20 11:02 DC 11/25/20 09:30 Divalproex Sodium (Depakote Er) 250 mg DAILY PO 11/26/20 09:00 12/02/20 07:14 DC 12/01/20 09:55 Divalproex Sodium (Depakote Er) 500 mg BID PO 11/13/20 09:00 11/13/20 09:00 DC Divalproex Sodium (Depakote Er) 500 mg DAILY PO 12/04/20 09:00 12/06/20 10:27 DC 12/05/20 12:43 Divalproex Sodium (Depakote Er) 500 mg DAILY PO 12/02/20 09:00 12/04/20 08:53 DC Divalproex Sodium (Depakote Er) 500 mg QHS PO 11/25/20 21:00 11/30/20 22:07 DC 11/29/20 21:19 Divalproex Sodium (Depakote Er) 500 mg QHS PO 11/30/20 22:10 12/06/20 10:27 DC 12/04/20 22:00 Docusate Sodium (Colace) 100 mg BID PO 11/12/20 09:00 01/09/21 10:08 Enoxaparin Sodium (Lovenox) 40 mg DAILY SC 12/21/20 09:00 01/06/21 09:58 DC 01/06/21 09:00 Haloperidol (Haldol) 5 mg BID@0800,2000 IM 12/15/20 20:00 12/16/20 10:47 DC 12/15/20 22:04 Haloperidol (Haldol) 5 mg Q6HP PRN PO AGITATION 12/03/20 12:25 12/24/20 09:59 Haloperidol (Haldol) 5 mg QHS IM 12/16/20 10:45 12/16/20 10:50 DC Haloperidol (Haldol) 5 mg QHS IM 12/16/20 21:00 01/04/21 10:02 DC 01/03/21 21:13 Haloperidol (Haldol) 5 mg QHS PO 01/04/21 21:00 01/08/21 20:58 Haloperidol (Haldol) 5 mg STAT STAT IM 12/19/20 07:40 12/19/20 07:42 DC 12/19/20 07:56 Ketorolac Tromethamine (ToRADol) 30 mg BIDP PRN IM PAIN LEVEL 6-10 12/14/20 09:20 12/17/20 08:45 Ketorolac Tromethamine (ToRADol) 30 mg Q6H PRN IM PAIN LEVEL 5-10 12/14/20 09:45 12/14/20 09:47 DC Levetiracetam (Keppra Oral Solution) 500 mg BID PO 11/12/20 09:00 01/09/21 10:08 Levothyroxine Sodium (Synthroid) 100 mcg DAILY@06 PO 11/12/20 06:00 01/09/21 06:22 Lorazepam (Ativan) 0.5 mg BID PO 11/17/20 09:00 11/18/20 08:31 DC 11/17/20 19:56 Lorazepam (Ativan) 1 mg BID PO 11/14/20 09:00 11/17/20 07:27 DC 11/16/20 20:33 Lorazepam (Ativan) 1 mg QHS PO 12/01/20 21:00 12/06/20 10:27 DC 12/04/20 21:59 Lorazepam (Ativan) 1 mg STAT STAT IM 12/17/20 15:43 12/17/20 15:45 DC 12/17/20 16:04 Lorazepam (Ativan) 1 mg TID PO 12/06/20 09:00 12/12/20 08:49 DC 12/11/20 10:31 Magnesium Hydroxide (Milk Of Magnesia) 30 ml DAILYPRN PRN PO CONSTIPATION 11/11/20 19:40 Miscellaneous (Unresolved Clarification Entry) SEE LABEL COMMENTS DAILY XX 12/11/20 09:00 12/13/20 09:04 DC Miscellaneous (Unresolved Clarification Entry) SEE LABEL COMMENTS DAILY XX 12/25/20 09:00 12/25/20 12:41 DC Miscellaneous (Unresolved Clarification Entry) SEE LABEL COMMENTS DAILY XX 12/26/20 09:00 12/26/20 10:48 DC Miscellaneous (Unresolved Clarification Entry) SEE LABEL COMMENTS DAILY XX 12/29/20 09:00 12/30/20 12:15 DC Miscellaneous (Unresolved Clarification Entry) SEE LABEL COMMENTS DAILY XX 12/30/20 09:00 01/01/21 11:18 DC Miscellaneous (Unresolved Clarification Entry) SEE LABEL COMMENTS QID XX 01/01/21 09:00 01/01/21 12:44 DC Miscellaneous (Unresolved Clarification Entry) SEE LABEL COMMENTS UNRESOLVED XX 01/04/21 00:01 01/04/21 10:13 DC Miscellaneous (Unresolved Clarification Entry) SEE LABEL COMMENTS UNRESOLVED XX 01/06/21 00:01 01/06/21 09:12 DC Miscellaneous (Unresolved Clarification Entry) SEE LABEL COMMENTS UNRESOLVED XX 01/06/21 00:01 01/06/21 15:21 DC Miscellaneous (Unresolved Clarification Entry) SEE LABEL COMMENTS UNRESOLVED XX 01/10/21 00:01 01/09/21 14:12 DC Nystatin (Mycostatin Powder, Nystop) APPLY TO AREAS OF RASH BIDP PRN TOP RASH 12/15/20 18:45 12/25/20 22:46 Oxycodone/ Acetaminophen (Percocet 5mg/ 325mg Tablet) 1 tab Q6HP PRN PO MODERATE PAIN (PS 5-7) 12/13/20 16:10 12/25/20 12:40 DC 12/18/20 19:59 Pantoprazole Sodium (Protonix) 40 mg DAILY PO 11/12/20 09:00 01/09/21 10:07 Polyethylene Glycol (Miralax) 1 pkt DAILY PO 11/12/20 09:00 01/09/21 10:08 Quetiapine Fumarate (SEROquel) 100 mg QHS PO 11/13/20 21:00 11/18/20 08:31 DC 11/17/20 19:56 Quetiapine Fumarate (SEROquel) 100 mg QHS PO 11/23/20 21:00 12/01/20 09:14 DC 11/29/20 21:19 Quetiapine Fumarate (SEROquel) 200 mg QHS PO 12/01/20 21:00 01/08/21 20:58 Risperidone (RisperDAL Consta) 37.5 mg Q14D@09 IM 12/07/20 09:00 12/07/20 10:54 DC Risperidone (RisperDAL Consta) 37.5 mg Q14D@09 IM 12/08/20 09:00 01/05/21 09:41 Risperidone (RisperDAL Consta) 37.5 mg Q14D@09 IM 12/22/20 09:30 UNV Risperidone (RisperDAL LIQUID) 4 mg QHS PO 11/12/20 21:00 11/14/20 08:57 DC 11/12/20 21:48 Risperidone (RisperDAL) 2 mg BID PO 11/14/20 09:00 11/21/20 09:34 DC 11/20/20 21:02 Risperidone (RisperDAL) 2 mg QHS PO 11/21/20 21:00 11/23/20 08:57 DC 11/22/20 20:41 Risperidone (RisperDAL) 2 mg QHS PO 12/13/20 21:00 12/22/20 09:28 DC 12/20/20 21:55 Risperidone (RisperDAL) 3 mg QHS PO 11/23/20 21:00 11/28/20 09:00 DC 11/27/20 21:58 Risperidone (RisperDAL) 4 mg DAILY@1700 PO 12/07/20 17:00 12/13/20 09:03 DC Risperidone (RisperDAL) 4 mg QHS PO 11/28/20 21:00 12/06/20 10:27 DC 12/04/20 22:01 Risperidone (RisperDAL) 4 mg QPM PO 12/06/20 17:00 12/07/20 09:42 DC 12/06/20 20:49 Sodium Chloride ([place] Saline Nasal Gel) APPLY SMALL RADHIKA... Q4HP PRN NA NASAL DRYNESS 12/02/20 10:50 01/01/21 10:49 DC Trazodone HCl (Desyrel) 50 mg QHSP PRN PO INSOMNIA 11/11/20 19:40 01/02/21 22:40 Valproic Acid (Depakene Solution) 500 mg 0800,1600 PO 12/06/20 08:00 01/09/21 10:07 Valproic Acid (Depakene) 500 mg BID PO 12/06/20 09:00 Cancel Allergies Coded Allergies: Sulfa (Sulfonamide Antibiotics) (Verified Allergy, Unknown, 01/21/19) aspirin (Verified Allergy, Unknown, 01/21/19) YOLY ENRIQUEZ MD Jan 09, 2021 16:17
[2021-01-09] MEDS: ACETAMINOPHEN TAB 650MG DOSE (2X325MG) PO PRN (16:30)
[2021-01-09 17:38] VITALS: BP 140/72
[2021-01-09] MEDS: haloperidoL 5 MG TAB PO SCH (21:41)
[2021-01-09] MEDS: QUEtiapine FUMARATE 200 MG TAB PO SCH (21:41)
[2021-01-09] MEDS: diphenhydrAMINE 50MG CAP PO SCH (21:42)
[2021-01-10] MEDS ORDERED: UNRESOLVED CLARIFICATION ENTRY XX SCH (00:01)
[2021-01-10] MEDS: LEVOTHYROXINE 100MCG TABLET (0.1MG) PO SCH (08:13)
--- NOTE | 2021-01-10 08:33 | REP ---
INDICATION: History of traumatic fall. Right foot swelling and pain COMPARISON: None. TECHNIQUE: AP, lateral, bilateral oblique views. FINDINGS: The osseous structures demonstrate mild age-related osteopenia and generalized arthritic changes. Lateral view cannot exclude a possible fracture with cortical break along the inferior contour of the talus which warrants further investigation. Surrounding soft tissue swelling is suggested as well. IMPRESSION: Single lateral view demonstrates subtle cortical irregularities along the inferior margin of the talus which may represent acute/chronic injury. Associated soft tissue swelling is noted. Correlation is required. If necessary consider noncontrast CT of the ankle for further investigation. <Electronically signed by Nimesh Lu > 01/10/21 [id number]
[2021-01-10] MEDS: VALPROIC ACID 250MG/5ML SOL ORAL SYRINGE *DRAW UP EXACT DOSE PO SCH ×2 (09:56→16:05)
[2021-01-10] MEDS: amLODIPine 5 MG TAB PO SCH (09:57)
[2021-01-10] MEDS: DOCUSATE SODIUM 100MG CAPSULE PO SCH ×2 (09:57→21:01)
[2021-01-10] MEDS: MIRALAX *UNIT DOSE* 17GM PACKET PO SCH (09:57)
[2021-01-10] MEDS: PANTOPRAZOLE 40MG TAB (PROTONIX) PO SCH (09:57)
[2021-01-10] MEDS: levETIRAcetam ORAL SOLUTION 500 MG/5 ML UDC PO SCH ×2 (09:57→21:00)
[2021-01-10] MEDS: BENZTROPINE 1 MG TAB PO SCH ×2 (09:58→21:01)
--- NOTE | 2021-01-10 11:21 | REP ---
INDICATION: right foot swelling/pain, fracture?. COMPARISON: Radiographs 01/10/2021 8:11 a.m. TECHNIQUE: Axial CT right ankle with sagittal and coronal reconstruction images. FINDINGS: There is no acute fracture or dislocation. The ankle mortise is anatomic. There is moderate spurring of the posterior and inferior calcaneus. The talocalcaneal joint is unremarkable. A small accessory ossicle is seen adjacent to the base of the 5th metatarsal. Accessory ossicle is also seen along the medial aspect of the navicular bone and lateral to the calcaneus. IMPRESSION: No acute fracture or dislocation. <Electronically signed by Mamadou Jett > 01/10/21 1111
[2021-01-10] MEDS: ACETAMINOPHEN TAB 650MG DOSE (2X325MG) PO PRN (14:11)
--- NOTE | 2021-01-10 15:02 | MHIPNPDOC ---
[facility] Progress Note Progress Note DATE OF SERVICE: 01/10/21 HISTORY: Patient is a 70 y/o woman with a reported PPH of bipolar disorder who was admitted to medicine November 04 after a suspected overdose, home was noted to be a disorganized living situation. On the unit patient is a 1:1 for fall risk/unsteady gait. Per chart review patient has made improvements on medications and is pending an OT/PT evaluation for disposition. Interval: Janice appears to be more calm, cooperative and coherent today. Reports continued pain and swelling in R ankle and pain in R side casted arm. Discussed having hospitalist team come and look, imaging also ordered by team to evaluate as xray equivocal. Reports some pain, tenderness in R ankle, nursing staff made aware, she was able to move joint, minimal swelling noted, warm to touch. Continues to be able to ambulate w/o difficulty VITAL SIGNS: See below. NEW TEST RESULTS: None CURRENT MEDICATIONS: See below. MENTAL STATUS EXAMINATION: Patient is a 70-year old female, who appears older than her stated age, elevated BMI, fair hygiene, fair eye contact at times Speech: Is increased in amount Language skills are fair Thought processes including: circumstantial Thought content: Denies suicidal or homicidal thoughts Abstract reasoning, and computation: poor, somewhat improving with medications Description of associations: fair Description of abnormal or psychotic thoughts: Denies Judgment: Poor, improving Insight: Poor Orientation: place, person Recent and remote memory: Poor Attention span and concentration: Poor Language: Intact Fund of knowledge: Unable to fully assess from interview Mood: okay Affect: switches between irritable and calm DIAGNOSES: 1. Schizoaffective disorder per hx, R/O neurocognitive disorder 2. R/O Bipolar disorder, schizophrenia 3. R ankle pain/tenderness ASSESSMENT: Pending transfer to [facility], on stable medication regimen with improvement in psychotic symptoms. MANAGEMENT PLAN: Continue with current medication regimen. Pending transfer, discussed in team meeting. Hospitalist consult ordered, appreciate recs. Otherwise Janice continues to improve, less irritable and still able to ambulate, was recommended not to weight bear on sore ankle for now until further evaluation of ankle, also rest ice, elevate by hospitalist team, was communicated directly to nursing by hospitalist team. TIME SPENT: 20 minutes. Vital Signs Vital Signs Date Time Temp Pulse Resp B/P (MAP) Pulse Ox O2 Delivery O2 Flow Rate FiO2 01/10/21 10:43 Room Air 01/10/21 09:57 78 134/74 01/09/21 17:38 97.1 17 98 Current Medications Current Medications Medications (Trade) Dose Ordered Sig/Marisa Route PRN Reason Start Time Stop Time Status Last Admin Dose Admin Acetaminophen (Tylenol Tab) 650 mg Q6HP PRN PO HEADACHE or MILD DISCOMFORT 11/11/20 19:40 01/10/21 14:11 Al Hydrox/Mg Hydrox/Simethicone (Mylanta) 30 ml Q4HP PRN PO HEARTBURN/INDIGESTION 11/11/20 19:40 Amlodipine Besylate (Norvasc) 5 mg DAILY PO 11/12/20 09:00 01/10/21 09:57 Benztropine Mesylate (Cogentin) 1 mg BID PO 12/13/20 09:00 01/10/21 09:58 Ceftriaxone Sodium (Rocephin) 1 gm Q24H IM 12/08/20 18:00 12/15/20 17:59 DC 12/14/20 17:36 Cephalexin Monohydrate (Keflex) 500 mg Q6H PO 12/04/20 18:00 12/08/20 18:01 DC 12/05/20 12:51 Diphenhydramine HCl (Benadryl) 50 mg BID@08,1999 IM 12/15/20 08:00 12/15/20 10:58 DC Diphenhydramine HCl (Benadryl) 50 mg BID@799,1999 IM 12/15/20 20:00 12/16/20 10:47 DC 12/15/20 22:04 Diphenhydramine HCl (Benadryl) 50 mg Q6HP PRN PO AGITATION 12/03/20 12:25 12/20/20 09:24 Diphenhydramine HCl (Benadryl) 50 mg QHS IM 12/16/20 10:45 12/16/20 10:50 DC Diphenhydramine HCl (Benadryl) 50 mg QHS IM 12/16/20 21:00 01/04/21 10:02 DC 01/03/21 21:13 Diphenhydramine HCl (Benadryl) 50 mg QHS PO 01/04/21 21:00 01/09/21 21:42 Diphenhydramine HCl (Benadryl) 50 mg STAT STAT IM 12/19/20 07:40 12/19/20 07:42 DC 12/19/20 07:56 Divalproex Sodium (Depakote Sprinkles) 500 mg BID PO 11/13/20 09:00 11/25/20 11:02 DC 11/25/20 09:30 Divalproex Sodium (Depakote Er) 250 mg DAILY PO 11/26/20 09:00 12/02/20 07:14 DC 12/01/20 09:55 Divalproex Sodium (Depakote Er) 500 mg BID PO 11/13/20 09:00 11/13/20 09:00 DC Divalproex Sodium (Depakote Er) 500 mg DAILY PO 12/04/20 09:00 12/06/20 10:27 DC 12/05/20 12:43 Divalproex Sodium (Depakote Er) 500 mg DAILY PO 12/02/20 09:00 12/04/20 08:53 DC Divalproex Sodium (Depakote Er) 500 mg QHS PO 11/25/20 21:00 11/30/20 22:07 DC 11/29/20 21:19 Divalproex Sodium (Depakote Er) 500 mg QHS PO 11/30/20 22:10 12/06/20 10:27 DC 12/04/20 22:00 Docusate Sodium (Colace) 100 mg BID PO 11/12/20 09:00 01/10/21 09:57 Enoxaparin Sodium (Lovenox) 40 mg DAILY SC 12/21/20 09:00 01/06/21 09:58 DC 01/06/21 09:00 Haloperidol (Haldol) 5 mg BID@0800,2000 IM 12/15/20 20:00 12/16/20 10:47 DC 12/15/20 22:04 Haloperidol (Haldol) 5 mg Q6HP PRN PO AGITATION 12/03/20 12:25 12/24/20 09:59 Haloperidol (Haldol) 5 mg QHS IM 12/16/20 10:45 12/16/20 10:50 DC Haloperidol (Haldol) 5 mg QHS IM 12/16/20 21:00 01/04/21 10:02 DC 01/03/21 21:13 Haloperidol (Haldol) 5 mg QHS PO 01/04/21 21:00 01/09/21 21:41 Haloperidol (Haldol) 5 mg STAT STAT IM 12/19/20 07:40 12/19/20 07:42 DC 12/19/20 07:56 Ketorolac Tromethamine (ToRADol) 30 mg BIDP PRN IM PAIN LEVEL 6-10 12/14/20 09:20 01/09/21 16:28 DC 12/17/20 08:45 Ketorolac Tromethamine (ToRADol) 30 mg Q6H PRN IM PAIN LEVEL 5-10 12/14/20 09:45 12/14/20 09:47 DC Levetiracetam (Keppra Oral Solution) 500 mg BID PO 11/12/20 09:00 01/10/21 09:57 Levothyroxine Sodium (Synthroid) 100 mcg DAILY@06 PO 11/12/20 06:00 01/10/21 08:13 Lorazepam (Ativan) 0.5 mg BID PO 11/17/20 09:00 11/18/20 08:31 DC 11/17/20 19:56 Lorazepam (Ativan) 1 mg BID PO 11/14/20 09:00 11/17/20 07:27 DC 11/16/20 20:33 Lorazepam (Ativan) 1 mg QHS PO 12/01/20 21:00 12/06/20 10:27 DC 12/04/20 21:59 Lorazepam (Ativan) 1 mg STAT STAT IM 12/17/20 15:43 12/17/20 15:45 DC 12/17/20 16:04 Lorazepam (Ativan) 1 mg TID PO 12/06/20 09:00 12/12/20 08:49 DC 12/11/20 10:31 Magnesium Hydroxide (Milk Of Magnesia) 30 ml DAILYPRN PRN PO CONSTIPATION 11/11/20 19:40 Miscellaneous (Unresolved Clarification Entry) SEE LABEL COMMENTS DAILY XX 12/11/20 09:00 12/13/20 09:04 DC Miscellaneous (Unresolved Clarification Entry) SEE LABEL COMMENTS DAILY XX 12/25/20 09:00 12/25/20 12:41 DC Miscellaneous (Unresolved Clarification Entry) SEE LABEL COMMENTS DAILY XX 12/26/20 09:00 12/26/20 10:48 DC Miscellaneous (Unresolved Clarification Entry) SEE LABEL COMMENTS DAILY XX 12/29/20 09:00 12/30/20 12:15 DC Miscellaneous (Unresolved Clarification Entry) SEE LABEL COMMENTS DAILY XX 12/30/20 09:00 01/01/21 11:18 DC Miscellaneous (Unresolved Clarification Entry) SEE LABEL COMMENTS QID XX 01/01/21 09:00 01/01/21 12:44 DC Miscellaneous (Unresolved Clarification Entry) SEE LABEL COMMENTS UNRESOLVED XX 01/04/21 00:01 01/04/21 10:13 DC Miscellaneous (Unresolved Clarification Entry) SEE LABEL COMMENTS UNRESOLVED XX 01/06/21 00:01 01/06/21 09:12 DC Miscellaneous (Unresolved Clarification Entry) SEE LABEL COMMENTS UNRESOLVED XX 01/06/21 00:01 01/06/21 15:21 DC Miscellaneous (Unresolved Clarification Entry) SEE LABEL COMMENTS UNRESOLVED XX 01/10/21 00:01 01/09/21 14:12 DC Nystatin (Mycostatin Powder, Nystop) APPLY TO AREAS OF RASH BIDP PRN TOP RASH 12/15/20 18:45 12/25/20 22:46 Oxycodone/ Acetaminophen (Percocet 5mg/ 325mg Tablet) 1 tab Q6HP PRN PO MODERATE PAIN (PS 5-7) 12/13/20 16:10 12/25/20 12:40 DC 12/18/20 19:59 Pantoprazole Sodium (Protonix) 40 mg DAILY PO 11/12/20 09:00 01/10/21 09:57 Polyethylene Glycol (Miralax) 1 pkt DAILY PO 11/12/20 09:00 01/10/21 09:57 Quetiapine Fumarate (SEROquel) 100 mg QHS PO 11/13/20 21:00 11/18/20 08:31 DC 11/17/20 19:56 Quetiapine Fumarate (SEROquel) 100 mg QHS PO 11/23/20 21:00 12/01/20 09:14 DC 11/29/20 21:19 Quetiapine Fumarate (SEROquel) 200 mg QHS PO 12/01/20 21:00 01/09/21 21:41 Risperidone (RisperDAL Consta) 37.5 mg Q14D@09 IM 12/07/20 09:00 12/07/20 10:54 DC Risperidone (RisperDAL Consta) 37.5 mg Q14D@09 IM 12/08/20 09:00 01/05/21 09:41 Risperidone (RisperDAL Consta) 37.5 mg Q14D@09 IM 12/22/20 09:30 UNV Risperidone (RisperDAL LIQUID) 4 mg QHS PO 11/12/20 21:00 11/14/20 08:57 DC 11/12/20 21:48 Risperidone (RisperDAL) 2 mg BID PO 11/14/20 09:00 11/21/20 09:34 DC 11/20/20 21:02 Risperidone (RisperDAL) 2 mg QHS PO 11/21/20 21:00 11/23/20 08:57 DC 11/22/20 20:41 Risperidone (RisperDAL) 2 mg QHS PO 12/13/20 21:00 12/22/20 09:28 DC 12/20/20 21:55 Risperidone (RisperDAL) 3 mg QHS PO 11/23/20 21:00 11/28/20 09:00 DC 11/27/20 21:58 Risperidone (RisperDAL) 4 mg DAILY@1700 PO 12/07/20 17:00 12/13/20 09:03 DC Risperidone (RisperDAL) 4 mg QHS PO 11/28/20 21:00 12/06/20 10:27 DC 12/04/20 22:01 Risperidone (RisperDAL) 4 mg QPM PO 12/06/20 17:00 12/07/20 09:42 DC 12/06/20 20:49 Sodium Chloride ([place] Saline Nasal Gel) APPLY SMALL RADHIKA... Q4HP PRN NA NASAL DRYNESS 12/02/20 10:50 01/01/21 10:49 DC Trazodone HCl (Desyrel) 50 mg QHSP PRN PO INSOMNIA 11/11/20 19:40 01/02/21 22:40 Valproic Acid (Depakene Solution) 500 mg 0800,1600 PO 12/06/20 08:00 01/10/21 09:56 Valproic Acid (Depakene) 500 mg BID PO 12/06/20 09:00 Cancel Allergies Coded Allergies: Sulfa (Sulfonamide Antibiotics) (Verified Allergy, Unknown, 01/21/19) aspirin (Verified Allergy, Unknown, 01/21/19) YOLY ENRIQUEZ MD Jan 10, 2021 14:52
--- NOTE | 2021-01-10 15:42 | REP ---
INDICATION: Re-evaluation of right wrist fracture. COMPARISON: None. TECHNIQUE: Four views FINDINGS: There is an impacted distal radial fracture and a fracture involving the ulnar styloid process. The waist of the scaphoid also appears to be fractured. IMPRESSION: Distal radial and ulnar fractures as described above with possible fracture involving the waist of the scaphoid. Sign rib <Electronically signed by Guillermo Villarreal > 01/10/21 [id number]
[2021-01-10 16:18] VITALS: BP 119/60
--- NOTE | 2021-01-10 18:53 | IPNPDOC ---
Subjective Date Seen The patient was seen on 01/10/21. Subjective Chief Complaint/HPI I reached out to orthopedic surgery, Dr. Summers, who recommended repeating the wrist XR. The wrist XR demonstrates the fracture plus possible fracture involving the waist of the scaphoid. I relayed the information to Dr. Summers. He told me to keep the splint/wrapping on for another 4 weeks. Otherwise, for the right ankle, he did not see any fracture on the imaging either. Recommending bracing the right ankle such as with RHIANNA wrap. I'm recommending ice as needed and acetaminophen for pain. Patient can ambulate as tolerated. Assessment /Plan Plan/VTE VTE Prophylaxis Ordered?: No (ambulation as tolerated) VS, I&O, 24H, Fishbone Vital Signs/I&O Vital Signs Date Time Temp Pulse Resp B/P (MAP) Pulse Ox O2 Delivery O2 Flow Rate FiO2 01/10/21 16:18 98.3 89 18 119/60 (79) 97 Room Air JORDIN ENG DO Jan 10, 2021 18:53
[2021-01-10] MEDS: diphenhydrAMINE 50MG CAP PO SCH (21:01)
[2021-01-10] MEDS: QUEtiapine FUMARATE 200 MG TAB PO SCH (21:01)
[2021-01-10] MEDS: haloperidoL 5 MG TAB PO SCH (21:01)
[2021-01-11] MEDS: LEVOTHYROXINE 100MCG TABLET (0.1MG) PO SCH (06:36)
[2021-01-11 06:49] VITALS: BP 137/63
--- NOTE | 2021-01-11 09:32 | MHIPNPDOC ---
[facility] Progress Note Progress Note DATE OF SERVICE: 01/11/21 HISTORY: Patient is a 70 y/o woman with a reported PPH of bipolar disorder who was admitted to medicine November 04 after a suspected overdose, home was noted to be a disorganized living situation. On the unit patient is a 1:1 for fall risk/unsteady gait. Per chart review patient has made improvements on medications and is pending an OT/PT evaluation for disposition. Interval: Patient was seen sitting in a chair on one-to-one, with nursing present. She was patient, calm, alert and oriented with no acute distress. Discussed treatment of ankle and right wrist, made her aware and nursing that she can take NSAIDs for pain, pay attention to allergies, also rest and icing of right ankle. VITAL SIGNS: See below. NEW TEST RESULTS: Per chart review x-ray of right arm showed multiple stable fractures. CURRENT MEDICATIONS: See below. MENTAL STATUS EXAMINATION: Patient is a 70-year old female, who appears older than her stated age, elevated BMI, fair hygiene, fair eye contact at times Speech: Is increased in amount Language skills are fair Thought processes including: circumstantial Thought content: Denies suicidal or homicidal thoughts Abstract reasoning, and computation: poor, somewhat improving with medications Description of associations: fair Description of abnormal or psychotic thoughts: Denies Judgment: improving Insight: Poor Orientation: place, person Recent and remote memory: Poor Attention span and concentration: Poor Language: Intact Fund of knowledge: Unable to fully assess from interview Mood: "good" Affect: euthymic, happy, mood congruent, stable DIAGNOSES: 1. Schizoaffective disorder per hx, R/O neurocognitive disorder 2. R/O Bipolar disorder, schizophrenia 3. R ankle pain/tenderness ASSESSMENT: Still pending transfer to [facility], on stable medication regimen with improvement in psychotic symptoms, less irritable and more euthymic on interview, more stable affect, able to tolerate p.o. medications as she is cooperative. MANAGEMENT PLAN: Continue with current medication regimen. Pending transfer. Per chart review following hospitalist recommendation recommendations, ordered Mo wrap for her right ankle, also patient will have to wear R arm cast for 4 weeks, also patient will be able to ambulate as tolerated per recommendations. Coordinated care with treatment team. TIME SPENT: 20 minutes. Vital Signs Vital Signs Date Time Temp Pulse Resp B/P (MAP) Pulse Ox O2 Delivery O2 Flow Rate FiO2 01/11/21 06:49 98.1 84 20 137/63 (87) 95 Room Air Current Medications Current Medications Medications (Trade) Dose Ordered Sig/Marisa Route PRN Reason Start Time Stop Time Status Last Admin Dose Admin Acetaminophen (Tylenol Tab) 650 mg Q6HP PRN PO HEADACHE or MILD DISCOMFORT 11/11/20 19:40 01/10/21 14:11 Al Hydrox/Mg Hydrox/Simethicone (Mylanta) 30 ml Q4HP PRN PO HEARTBURN/INDIGESTION 11/11/20 19:40 Amlodipine Besylate (Norvasc) 5 mg DAILY PO 11/12/20 09:00 01/10/21 09:57 Benztropine Mesylate (Cogentin) 1 mg BID PO 12/13/20 09:00 01/10/21 21:01 Ceftriaxone Sodium (Rocephin) 1 gm Q24H IM 12/08/20 18:00 12/15/20 17:59 DC 12/14/20 17:36 Cephalexin Monohydrate (Keflex) 500 mg Q6H PO 12/04/20 18:00 12/08/20 18:01 DC 12/05/20 12:51 Diphenhydramine HCl (Benadryl) 50 mg BID@08 IM 12/15/20 08:00 12/15/20 10:58 DC Diphenhydramine HCl (Benadryl) 50 mg BID@0800,1999 IM 12/15/20 20:00 12/16/20 10:47 DC 12/15/20 22:04 Diphenhydramine HCl (Benadryl) 50 mg Q6HP PRN PO AGITATION 12/03/20 12:25 12/20/20 09:24 Diphenhydramine HCl (Benadryl) 50 mg QHS IM 12/16/20 10:45 12/16/20 10:50 DC Diphenhydramine HCl (Benadryl) 50 mg QHS IM 12/16/20 21:00 01/04/21 10:02 DC 01/03/21 21:13 Diphenhydramine HCl (Benadryl) 50 mg QHS PO 01/04/21 21:00 01/10/21 21:01 Diphenhydramine HCl (Benadryl) 50 mg STAT STAT IM 12/19/20 07:40 12/19/20 07:42 DC 12/19/20 07:56 Divalproex Sodium (Depakote Sprinkles) 500 mg BID PO 11/13/20 09:00 11/25/20 11:02 DC 11/25/20 09:30 Divalproex Sodium (Depakote Er) 250 mg DAILY PO 11/26/20 09:00 12/02/20 07:14 DC 12/01/20 09:55 Divalproex Sodium (Depakote Er) 500 mg BID PO 11/13/20 09:00 11/13/20 09:00 DC Divalproex Sodium (Depakote Er) 500 mg DAILY PO 12/04/20 09:00 12/06/20 10:27 DC 12/05/20 12:43 Divalproex Sodium (Depakote Er) 500 mg DAILY PO 12/02/20 09:00 12/04/20 08:53 DC Divalproex Sodium (Depakote Er) 500 mg QHS PO 11/25/20 21:00 11/30/20 22:07 DC 11/29/20 21:19 Divalproex Sodium (Depakote Er) 500 mg QHS PO 11/30/20 22:10 12/06/20 10:27 DC 12/04/20 22:00 Divalproex Sodium (Depakote) 500 mg BID@0800,1600 PO 01/11/21 08:00 Docusate Sodium (Colace) 100 mg BID PO 11/12/20 09:00 01/10/21 21:01 Enoxaparin Sodium (Lovenox) 40 mg DAILY SC 12/21/20 09:00 01/06/21 09:58 DC 01/06/21 09:00 Haloperidol (Haldol) 5 mg BID@0800,2000 IM 12/15/20 20:00 12/16/20 10:47 DC 12/15/20 22:04 Haloperidol (Haldol) 5 mg Q6HP PRN PO AGITATION 12/03/20 12:25 12/24/20 09:59 Haloperidol (Haldol) 5 mg QHS IM 12/16/20 10:45 12/16/20 10:50 DC Haloperidol (Haldol) 5 mg QHS IM 12/16/20 21:00 01/04/21 10:02 DC 01/03/21 21:13 Haloperidol (Haldol) 5 mg QHS PO 01/04/21 21:00 01/10/21 21:01 Haloperidol (Haldol) 5 mg STAT STAT IM 12/19/20 07:40 12/19/20 07:42 DC 12/19/20 07:56 Ketorolac Tromethamine (ToRADol) 30 mg BIDP PRN IM PAIN LEVEL 6-10 12/14/20 09:20 01/09/21 16:28 DC 12/17/20 08:45 Ketorolac Tromethamine (ToRADol) 30 mg Q6H PRN IM PAIN LEVEL 5-10 12/14/20 09:45 12/14/20 09:47 DC Levetiracetam (Keppra Oral Solution) 500 mg BID PO 11/12/20 09:00 01/11/21 08:26 DC 01/10/21 21:00 Levetiracetam (Keppra) 500 mg BID PO 01/11/21 09:00 Levothyroxine Sodium (Synthroid) 100 mcg DAILY@06 PO 11/12/20 06:00 01/11/21 06:36 Lorazepam (Ativan) 0.5 mg BID PO 11/17/20 09:00 11/18/20 08:31 DC 11/17/20 19:56 Lorazepam (Ativan) 1 mg BID PO 11/14/20 09:00 11/17/20 07:27 DC 11/16/20 20:33 Lorazepam (Ativan) 1 mg QHS PO 12/01/20 21:00 12/06/20 10:27 DC 12/04/20 21:59 Lorazepam (Ativan) 1 mg STAT STAT IM 12/17/20 15:43 12/17/20 15:45 DC 12/17/20 16:04 Lorazepam (Ativan) 1 mg TID PO 12/06/20 09:00 12/12/20 08:49 DC 12/11/20 10:31 Magnesium Hydroxide (Milk Of Magnesia) 30 ml DAILYPRN PRN PO CONSTIPATION 11/11/20 19:40 Miscellaneous (Unresolved Clarification Entry) SEE LABEL COMMENTS DAILY XX 12/11/20 09:00 12/13/20 09:04 DC Miscellaneous (Unresolved Clarification Entry) SEE LABEL COMMENTS DAILY XX 12/25/20 09:00 12/25/20 12:41 DC Miscellaneous (Unresolved Clarification Entry) SEE LABEL COMMENTS DAILY XX 12/26/20 09:00 12/26/20 10:48 DC Miscellaneous (Unresolved Clarification Entry) SEE LABEL COMMENTS DAILY XX 12/29/20 09:00 12/30/20 12:15 DC Miscellaneous (Unresolved Clarification Entry) SEE LABEL COMMENTS DAILY XX 12/30/20 09:00 01/01/21 11:18 DC Miscellaneous (Unresolved Clarification Entry) SEE LABEL COMMENTS QID XX 01/01/21 09:00 01/01/21 12:44 DC Miscellaneous (Unresolved Clarification Entry) SEE LABEL COMMENTS UNRESOLVED XX 01/04/21 00:01 01/04/21 10:13 DC Miscellaneous (Unresolved Clarification Entry) SEE LABEL COMMENTS UNRESOLVED XX 01/06/21 00:01 01/06/21 09:12 DC Miscellaneous (Unresolved Clarification Entry) SEE LABEL COMMENTS UNRESOLVED XX 01/06/21 00:01 01/06/21 15:21 DC Miscellaneous (Unresolved Clarification Entry) SEE LABEL COMMENTS UNRESOLVED XX 01/10/21 00:01 01/09/21 14:12 DC Nystatin (Mycostatin Powder, Nystop) APPLY TO AREAS OF RASH BIDP PRN TOP RASH 12/15/20 18:45 12/25/20 22:46 Oxycodone/ Acetaminophen (Percocet 5mg/ 325mg Tablet) 1 tab Q6HP PRN PO MODERATE PAIN (PS 5-7) 12/13/20 16:10 12/25/20 12:40 DC 12/18/20 19:59 Pantoprazole Sodium (Protonix) 40 mg DAILY PO 11/12/20 09:00 01/10/21 09:57 Polyethylene Glycol (Miralax) 1 pkt DAILY PO 11/12/20 09:00 01/10/21 09:57 Quetiapine Fumarate (SEROquel) 100 mg QHS PO 11/13/20 21:00 11/18/20 08:31 DC 11/17/20 19:56 Quetiapine Fumarate (SEROquel) 100 mg QHS PO 11/23/20 21:00 12/01/20 09:14 DC 11/29/20 21:19 Quetiapine Fumarate (SEROquel) 200 mg QHS PO 12/01/20 21:00 01/10/21 21:01 Risperidone (RisperDAL Consta) 37.5 mg Q14D@09 IM 12/07/20 09:00 12/07/20 10:54 DC Risperidone (RisperDAL Consta) 37.5 mg Q14D@09 IM 12/08/20 09:00 01/05/21 09:41 Risperidone (RisperDAL Consta) 37.5 mg Q14D@09 IM 12/22/20 09:30 UNV Risperidone (RisperDAL LIQUID) 4 mg QHS PO 11/12/20 21:00 11/14/20 08:57 DC 11/12/20 21:48 Risperidone (RisperDAL) 2 mg BID PO 11/14/20 09:00 11/21/20 09:34 DC 11/20/20 21:02 Risperidone (RisperDAL) 2 mg QHS PO 11/21/20 21:00 11/23/20 08:57 DC 11/22/20 20:41 Risperidone (RisperDAL) 2 mg QHS PO 12/13/20 21:00 12/22/20 09:28 DC 12/20/20 21:55 Risperidone (RisperDAL) 3 mg QHS PO 11/23/20 21:00 11/28/20 09:00 DC 11/27/20 21:58 Risperidone (RisperDAL) 4 mg DAILY@1700 PO 12/07/20 17:00 12/13/20 09:03 DC Risperidone (RisperDAL) 4 mg QHS PO 11/28/20 21:00 12/06/20 10:27 DC 12/04/20 22:01 Risperidone (RisperDAL) 4 mg QPM PO 12/06/20 17:00 12/07/20 09:42 DC 12/06/20 20:49 Sodium Chloride (Rheems Saline Nasal Gel) APPLY SMALL RADHIKA... Q4HP PRN NA NASAL DRYNESS 12/02/20 10:50 01/01/21 10:49 DC Trazodone HCl (Desyrel) 50 mg QHSP PRN PO INSOMNIA 11/11/20 19:40 01/02/21 22:40 Valproic Acid (Depakene Solution) 500 mg 0800,1600 PO 12/06/20 08:00 01/11/21 08:26 DC 01/10/21 16:05 Valproic Acid (Depakene) 500 mg BID PO 12/06/20 09:00 Cancel Allergies Coded Allergies: Sulfa (Sulfonamide Antibiotics) (Verified Allergy, Unknown, 01/21/19) aspirin (Verified Allergy, Unknown, 01/21/19) YOLY ENRIQUEZ MD Jan 11, 2021 09:32
[2021-01-11] MEDS: BENZTROPINE 1 MG TAB PO SCH ×2 (09:58→20:39)
[2021-01-11] MEDS: MIRALAX *UNIT DOSE* 17GM PACKET PO SCH (09:58)
[2021-01-11] MEDS: levETIRAcetam 250MG TABLET (KEPPRA) PO SCH ×2 (09:58→20:39)
[2021-01-11] MEDS: amLODIPine 5 MG TAB PO SCH (09:59)
[2021-01-11] MEDS: DOCUSATE SODIUM 100MG CAPSULE PO SCH ×2 (09:59→20:39)
[2021-01-11] MEDS: PANTOPRAZOLE 40MG TAB (PROTONIX) PO SCH (09:59)
[2021-01-11] MEDS: DIVALPROEX 500 MG TAB PO SCH ×2 (10:02→15:57)
[2021-01-11] MEDS: ACETAMINOPHEN TAB 650MG DOSE (2X325MG) PO PRN (10:16)
[2021-01-11 16:14] VITALS: BP 122/66
[2021-01-11] MEDS: QUEtiapine FUMARATE 200 MG TAB PO SCH (20:39)
[2021-01-11] MEDS: traZODone 50 MG TAB PO PRN (20:39)
[2021-01-11] MEDS: haloperidoL 5 MG TAB PO SCH (20:39)
[2021-01-11] MEDS: diphenhydrAMINE 50MG CAP PO SCH (20:39)
[2021-01-12] MEDS: LEVOTHYROXINE 100MCG TABLET (0.1MG) PO SCH (06:16)
[2021-01-12 06:44] VITALS: BP 146/69
[2021-01-12] MEDS: DIVALPROEX 500 MG TAB PO SCH ×2 (08:54→17:00)
[2021-01-12] MEDS: MIRALAX *UNIT DOSE* 17GM PACKET PO SCH (09:00)
[2021-01-12] MEDS: PANTOPRAZOLE 40MG TAB (PROTONIX) PO SCH (10:08)
[2021-01-12] MEDS: DOCUSATE SODIUM 100MG CAPSULE PO SCH ×2 (10:08→21:36)
[2021-01-12] MEDS: BENZTROPINE 1 MG TAB PO SCH ×2 (10:08→21:36)
[2021-01-12] MEDS: levETIRAcetam 250MG TABLET (KEPPRA) PO SCH ×2 (10:09→21:36)
[2021-01-12] MEDS: amLODIPine 5 MG TAB PO SCH (10:09)
--- NOTE | 2021-01-12 17:54 | MHIPNPDOC ---
[facility] Progress Note Progress Note DATE OF SERVICE: 01/12/21 HISTORY: Patient is a 70 y/o woman with a reported PPH of bipolar disorder who was admitted to medicine November 04 after a suspected overdose, home was noted to be a disorganized living situation. On the unit patient is a 1:1 for fall risk/unsteady gait. Per chart review patient has made improvements on medications and is pending an OT/PT evaluation for disposition. Interval: Patient was sleeping in bed, came back on several occasions in the morning remained asleep despite efforts to wake her up. Per chart review was later seen by nursing has NSAIDs for breakthrough pain. Pending placement in [facility]. Per PT OT eval. requires assistance for self-care. VITAL SIGNS: See below. NEW TEST RESULTS: Per chart review x-ray of right arm showed multiple stable fractures. CURRENT MEDICATIONS: See below. MENTAL STATUS EXAMINATION: Patient is a 70-year old female, who appears older than her stated age, elevated BMI, fair hygiene, sleeping in bed Speech: Is increased in amount Language skills are fair Thought processes including: circumstantial Thought content: Unable to fully assess with sleeping Abstract reasoning, and computation: poor, somewhat improving with medications Description of associations: fair Description of abnormal or psychotic thoughts: Judgment: improving Insight: Poor Orientation: Unable to assess for sleeping Recent and remote memory: Poor Attention span and concentration: Poor Language: Intact Fund of knowledge: Unable to fully assess from interview Mood: Unable to assess sleeping: Affect: Sleeping: Unable to assess DIAGNOSES: 1. Schizoaffective disorder per hx, R/O neurocognitive disorder 2. R/O Bipolar disorder, schizophrenia 3. R ankle pain/tenderness ASSESSMENT: Pending transfer to [facility], PT/OT recommends assisted living in a [facility]dc facility. Requires continued stay as unable to care for self. MANAGEMENT PLAN: No medication changes made, per chart review stable. TIME SPENT: 15 minutes. Vital Signs Vital Signs Date Time Temp Pulse Resp B/P (MAP) Pulse Ox O2 Delivery O2 Flow Rate FiO2 01/12/21 10:09 92 146/69 01/12/21 08:15 Room Air 01/12/21 06:44 97.9 18 95 Current Medications Current Medications Medications (Trade) Dose Ordered Sig/Marisa Route PRN Reason Start Time Stop Time Status Last Admin Dose Admin Acetaminophen (Tylenol Tab) 650 mg Q6HP PRN PO HEADACHE or MILD DISCOMFORT 11/11/20 19:40 01/11/21 10:16 Al Hydrox/Mg Hydrox/Simethicone (Mylanta) 30 ml Q4HP PRN PO HEARTBURN/INDIGESTION 11/11/20 19:40 Amlodipine Besylate (Norvasc) 5 mg DAILY PO 11/12/20 09:00 01/12/21 10:09 Benztropine Mesylate (Cogentin) 1 mg BID PO 12/13/20 09:00 01/12/21 10:08 Ceftriaxone Sodium (Rocephin) 1 gm Q24H IM 12/08/20 18:00 12/15/20 17:59 DC 12/14/20 17:36 Cephalexin Monohydrate (Keflex) 500 mg Q6H PO 12/04/20 18:00 12/08/20 18:01 DC 12/05/20 12:51 Diphenhydramine HCl (Benadryl) 50 mg BID@08,1999 IM 12/15/20 08:00 12/15/20 10:58 DC Diphenhydramine HCl (Benadryl) 50 mg BID@799,1999 IM 12/15/20 20:00 12/16/20 10:47 DC 12/15/20 22:04 Diphenhydramine HCl (Benadryl) 50 mg Q6HP PRN PO AGITATION 12/03/20 12:25 12/20/20 09:24 Diphenhydramine HCl (Benadryl) 50 mg QHS IM 12/16/20 10:45 12/16/20 10:50 DC Diphenhydramine HCl (Benadryl) 50 mg QHS IM 12/16/20 21:00 01/04/21 10:02 DC 01/03/21 21:13 Diphenhydramine HCl (Benadryl) 50 mg QHS PO 01/04/21 21:00 01/11/21 20:39 Diphenhydramine HCl (Benadryl) 50 mg STAT STAT IM 12/19/20 07:40 12/19/20 07:42 DC 12/19/20 07:56 Divalproex Sodium (Depakote Sprinkles) 500 mg BID PO 11/13/20 09:00 11/25/20 11:02 DC 11/25/20 09:30 Divalproex Sodium (Depakote Er) 250 mg DAILY PO 11/26/20 09:00 12/02/20 07:14 DC 12/01/20 09:55 Divalproex Sodium (Depakote Er) 500 mg BID PO 11/13/20 09:00 11/13/20 09:00 DC Divalproex Sodium (Depakote Er) 500 mg DAILY PO 12/04/20 09:00 12/06/20 10:27 DC 12/05/20 12:43 Divalproex Sodium (Depakote Er) 500 mg DAILY PO 12/02/20 09:00 12/04/20 08:53 DC Divalproex Sodium (Depakote Er) 500 mg QHS PO 11/25/20 21:00 11/30/20 22:07 DC 11/29/20 21:19 Divalproex Sodium (Depakote Er) 500 mg QHS PO 11/30/20 22:10 12/06/20 10:27 DC 12/04/20 22:00 Divalproex Sodium (Depakote) 500 mg BID@0800,1600 PO 01/11/21 08:00 01/12/21 17:00 Docusate Sodium (Colace) 100 mg BID PO 11/12/20 09:00 01/12/21 10:08 Enoxaparin Sodium (Lovenox) 40 mg DAILY SC 12/21/20 09:00 01/06/21 09:58 DC 01/06/21 09:00 Haloperidol (Haldol) 5 mg BID@0800,2000 IM 12/15/20 20:00 12/16/20 10:47 DC 12/15/20 22:04 Haloperidol (Haldol) 5 mg Q6HP PRN PO AGITATION 12/03/20 12:25 12/24/20 09:59 Haloperidol (Haldol) 5 mg QHS IM 12/16/20 10:45 12/16/20 10:50 DC Haloperidol (Haldol) 5 mg QHS IM 12/16/20 21:00 01/04/21 10:02 DC 01/03/21 21:13 Haloperidol (Haldol) 5 mg QHS PO 01/04/21 21:00 01/11/21 20:39 Haloperidol (Haldol) 5 mg STAT STAT IM 12/19/20 07:40 12/19/20 07:42 DC 12/19/20 07:56 Ketorolac Tromethamine (ToRADol) 30 mg BIDP PRN IM PAIN LEVEL 6-10 12/14/20 09:20 01/09/21 16:28 DC 12/17/20 08:45 Ketorolac Tromethamine (ToRADol) 30 mg Q6H PRN IM PAIN LEVEL 5-10 12/14/20 09:45 12/14/20 09:47 DC Levetiracetam (Keppra Oral Solution) 500 mg BID PO 11/12/20 09:00 01/11/21 08:26 DC 01/10/21 21:00 Levetiracetam (Keppra) 500 mg BID PO 01/11/21 09:00 01/12/21 10:09 Levothyroxine Sodium (Synthroid) 100 mcg DAILY@06 PO 11/12/20 06:00 01/12/21 06:16 Lorazepam (Ativan) 0.5 mg BID PO 11/17/20 09:00 11/18/20 08:31 DC 11/17/20 19:56 Lorazepam (Ativan) 1 mg BID PO 11/14/20 09:00 11/17/20 07:27 DC 11/16/20 20:33 Lorazepam (Ativan) 1 mg QHS PO 12/01/20 21:00 12/06/20 10:27 DC 12/04/20 21:59 Lorazepam (Ativan) 1 mg STAT STAT IM 12/17/20 15:43 12/17/20 15:45 DC 12/17/20 16:04 Lorazepam (Ativan) 1 mg TID PO 12/06/20 09:00 12/12/20 08:49 DC 12/11/20 10:31 Magnesium Hydroxide (Milk Of Magnesia) 30 ml DAILYPRN PRN PO CONSTIPATION 11/11/20 19:40 Miscellaneous (Unresolved Clarification Entry) SEE LABEL COMMENTS DAILY XX 12/11/20 09:00 12/13/20 09:04 DC Miscellaneous (Unresolved Clarification Entry) SEE LABEL COMMENTS DAILY XX 12/25/20 09:00 12/25/20 12:41 DC Miscellaneous (Unresolved Clarification Entry) SEE LABEL COMMENTS DAILY XX 12/26/20 09:00 12/26/20 10:48 DC Miscellaneous (Unresolved Clarification Entry) SEE LABEL COMMENTS DAILY XX 12/29/20 09:00 12/30/20 12:15 DC Miscellaneous (Unresolved Clarification Entry) SEE LABEL COMMENTS DAILY XX 12/30/20 09:00 01/01/21 11:18 DC Miscellaneous (Unresolved Clarification Entry) SEE LABEL COMMENTS QID XX 01/01/21 09:00 01/01/21 12:44 DC Miscellaneous (Unresolved Clarification Entry) SEE LABEL COMMENTS UNRESOLVED XX 01/04/21 00:01 01/04/21 10:13 DC Miscellaneous (Unresolved Clarification Entry) SEE LABEL COMMENTS UNRESOLVED XX 01/06/21 00:01 01/06/21 09:12 DC Miscellaneous (Unresolved Clarification Entry) SEE LABEL COMMENTS UNRESOLVED XX 01/06/21 00:01 01/06/21 15:21 DC Miscellaneous (Unresolved Clarification Entry) SEE LABEL COMMENTS UNRESOLVED XX 01/10/21 00:01 01/09/21 14:12 DC Nystatin (Mycostatin Powder, Nystop) APPLY TO AREAS OF RASH BIDP PRN TOP RASH 12/15/20 18:45 12/25/20 22:46 Oxycodone/ Acetaminophen (Percocet 5mg/ 325mg Tablet) 1 tab Q6HP PRN PO MODERATE PAIN (PS 5-7) 12/13/20 16:10 12/25/20 12:40 DC 12/18/20 19:59 Pantoprazole Sodium (Protonix) 40 mg DAILY PO 11/12/20 09:00 01/12/21 10:08 Polyethylene Glycol (Miralax) 1 pkt DAILY PO 11/12/20 09:00 01/11/21 09:58 Quetiapine Fumarate (SEROquel) 100 mg QHS PO 11/13/20 21:00 11/18/20 08:31 DC 11/17/20 19:56 Quetiapine Fumarate (SEROquel) 100 mg QHS PO 11/23/20 21:00 12/01/20 09:14 DC 11/29/20 21:19 Quetiapine Fumarate (SEROquel) 200 mg QHS PO 12/01/20 21:00 01/11/21 20:39 Risperidone (RisperDAL Consta) 37.5 mg Q14D@09 IM 12/07/20 09:00 12/07/20 10:54 DC Risperidone (RisperDAL Consta) 37.5 mg Q14D@09 IM 12/08/20 09:00 01/05/21 09:41 Risperidone (RisperDAL Consta) 37.5 mg Q14D@09 IM 12/22/20 09:30 UNV Risperidone (RisperDAL LIQUID) 4 mg QHS PO 11/12/20 21:00 11/14/20 08:57 DC 11/12/20 21:48 Risperidone (RisperDAL) 2 mg BID PO 11/14/20 09:00 11/21/20 09:34 DC 11/20/20 21:02 Risperidone (RisperDAL) 2 mg QHS PO 11/21/20 21:00 11/23/20 08:57 DC 11/22/20 20:41 Risperidone (RisperDAL) 2 mg QHS PO 12/13/20 21:00 12/22/20 09:28 DC 12/20/20 21:55 Risperidone (RisperDAL) 3 mg QHS PO 11/23/20 21:00 11/28/20 09:00 DC 11/27/20 21:58 Risperidone (RisperDAL) 4 mg DAILY@1700 PO 12/07/20 17:00 12/13/20 09:03 DC Risperidone (RisperDAL) 4 mg QHS PO 11/28/20 21:00 12/06/20 10:27 DC 12/04/20 22:01 Risperidone (RisperDAL) 4 mg QPM PO 12/06/20 17:00 12/07/20 09:42 DC 12/06/20 20:49 Sodium Chloride (Savery Saline Nasal Gel) APPLY SMALL RADHIKA... Q4HP PRN NA NASAL DRYNESS 12/02/20 10:50 01/01/21 10:49 DC Trazodone HCl (Desyrel) 50 mg QHSP PRN PO INSOMNIA 11/11/20 19:40 01/11/21 20:39 Valproic Acid (Depakene Solution) 500 mg 0800,1600 PO 12/06/20 08:00 01/11/21 08:26 DC 01/10/21 16:05 Valproic Acid (Depakene) 500 mg BID PO 12/06/20 09:00 Cancel Allergies Coded Allergies: Sulfa (Sulfonamide Antibiotics) (Verified Allergy, Unknown, 01/21/19) aspirin (Verified Allergy, Unknown, 01/21/19) YOLY ENRIQUEZ MD Jan 12, 2021 17:54
[2021-01-12 18:22] VITALS: BP 133/72
[2021-01-12] MEDS: haloperidoL 5 MG TAB PO SCH (21:36)
[2021-01-12] MEDS: QUEtiapine FUMARATE 200 MG TAB PO SCH (21:36)
[2021-01-12] MEDS: diphenhydrAMINE 50MG CAP PO SCH (21:36)
[2021-01-13] MEDS: LEVOTHYROXINE 100MCG TABLET (0.1MG) PO SCH (06:17)
[2021-01-13 06:43] VITALS: BP 143/90
[2021-01-13] MEDS: DIVALPROEX 500 MG TAB PO SCH ×2 (09:44→15:33)
[2021-01-13] MEDS: BENZTROPINE 1 MG TAB PO SCH ×2 (09:44→21:10)
[2021-01-13] MEDS: PANTOPRAZOLE 40MG TAB (PROTONIX) PO SCH (09:44)
[2021-01-13] MEDS: MIRALAX *UNIT DOSE* 17GM PACKET PO SCH (09:44)
[2021-01-13] MEDS: DOCUSATE SODIUM 100MG CAPSULE PO SCH ×2 (09:45→21:10)
[2021-01-13] MEDS: levETIRAcetam 250MG TABLET (KEPPRA) PO SCH ×2 (09:45→21:10)
[2021-01-13] MEDS: amLODIPine 5 MG TAB PO SCH (10:02)
[2021-01-13] MEDS: ACETAMINOPHEN TAB 650MG DOSE (2X325MG) PO PRN (12:28)
[2021-01-13 16:03] VITALS: BP 128/78
--- NOTE | 2021-01-13 16:34 | MHIPNPDOC ---
[facility] Progress Note Progress Note DATE OF SERVICE: 01/13/21 HISTORY: Patient is a 70 y/o woman with a reported PPH of bipolar disorder who was admitted to medicine November 04 after a suspected overdose, home was noted to be a disorganized living situation. On the unit patient is a 1:1 for fall risk/unsteady gait. Per chart review patient has made improvements on medications and is pending an OT/PT evaluation for disposition. Interval: Patient was seen in the morning, was sleeping comfortably. Per nursing had 1 irritable episode and was redirected without issue. He is now going to the bathroom with some assistance, but has made improvements and is now showering per nursing staff. Patient was seen later in the activity room, appears happy, although somewhat mildly disorganized. Denies suicidal ideation or homicidal ideation, no excessive aggression, tolerating medications well. Perseverates on pain in arm and ankle, but has as needed medications, so nursing was told to provide patient with patient with NSAIDS. VITAL SIGNS: See below. NEW TEST RESULTS: None CURRENT MEDICATIONS: See below. MENTAL STATUS EXAMINATION: Patient is a 70-year old female, who appears older than her stated age, elevated BMI, fair hygiene, sleeping in bed Speech: Is normal, slurred, quiet. Language skills are fair Thought processes including: Continues to be circumstantial Thought content: Denies suicidal ideation Abstract reasoning, and computation: poor, somewhat improving with medications Description of associations: fair Description of abnormal or psychotic thoughts: Denies Judgment: improving Insight: Poor Orientation: Intact Recent and remote memory: Poor Attention span and concentration: Poor Language: Intact Fund of knowledge: Below average Mood: "good" : Affect: Euthymic, mildly disorganized, congruent DIAGNOSES: 1. Schizoaffective disorder per hx, R/O neurocognitive disorder 2. R/O Bipolar disorder, schizophrenia 3. R ankle pain/tenderness ASSESSMENT: Patient continues improvements on the unit, he will able to shower and go to the bathroom with assistance and less irritability. Stable on current medication regimen. MANAGEMENT PLAN: No medication changes made, per chart review stable. Pending transfer to [facility], PT/OT recommends assisted living in a care home facility, per social work likely will be accepted with potential dispo early next week. Requires continued stay as unable to care for self, needs stable assisted living environment. TIME SPENT: 15 minutes. Vital Signs Vital Signs Date Time Temp Pulse Resp B/P (MAP) Pulse Ox O2 Delivery O2 Flow Rate FiO2 01/13/21 16:03 98.0 102 18 128/78 (95) 98 Room Air Current Medications Current Medications Medications (Trade) Dose Ordered Sig/Marisa Route PRN Reason Start Time Stop Time Status Last Admin Dose Admin Acetaminophen (Tylenol Tab) 650 mg Q6HP PRN PO HEADACHE or MILD DISCOMFORT 11/11/20 19:40 01/13/21 12:28 Al Hydrox/Mg Hydrox/Simethicone (Mylanta) 30 ml Q4HP PRN PO HEARTBURN/INDIGESTION 11/11/20 19:40 Amlodipine Besylate (Norvasc) 5 mg DAILY PO 11/12/20 09:00 01/13/21 10:02 Benztropine Mesylate (Cogentin) 1 mg BID PO 12/13/20 09:00 01/13/21 09:44 Ceftriaxone Sodium (Rocephin) 1 gm Q24H IM 12/08/20 18:00 12/15/20 17:59 DC 12/14/20 17:36 Cephalexin Monohydrate (Keflex) 500 mg Q6H PO 12/04/20 18:00 12/08/20 18:01 DC 12/05/20 12:51 Diphenhydramine HCl (Benadryl) 50 mg BID@08,1999 IM 12/15/20 08:00 12/15/20 10:58 DC Diphenhydramine HCl (Benadryl) 50 mg BID@0800,1999 IM 12/15/20 20:00 12/16/20 10:47 DC 12/15/20 22:04 Diphenhydramine HCl (Benadryl) 50 mg Q6HP PRN PO AGITATION 12/03/20 12:25 12/20/20 09:24 Diphenhydramine HCl (Benadryl) 50 mg QHS IM 12/16/20 10:45 12/16/20 10:50 DC Diphenhydramine HCl (Benadryl) 50 mg QHS IM 12/16/20 21:00 01/04/21 10:02 DC 01/03/21 21:13 Diphenhydramine HCl (Benadryl) 50 mg QHS PO 01/04/21 21:00 01/12/21 21:36 Diphenhydramine HCl (Benadryl) 50 mg STAT STAT IM 12/19/20 07:40 12/19/20 07:42 DC 12/19/20 07:56 Divalproex Sodium (Depakote Sprinkles) 500 mg BID PO 11/13/20 09:00 11/25/20 11:02 DC 11/25/20 09:30 Divalproex Sodium (Depakote Er) 250 mg DAILY PO 11/26/20 09:00 12/02/20 07:14 DC 12/01/20 09:55 Divalproex Sodium (Depakote Er) 500 mg BID PO 11/13/20 09:00 11/13/20 09:00 DC Divalproex Sodium (Depakote Er) 500 mg DAILY PO 12/04/20 09:00 12/06/20 10:27 DC 12/05/20 12:43 Divalproex Sodium (Depakote Er) 500 mg DAILY PO 12/02/20 09:00 12/04/20 08:53 DC Divalproex Sodium (Depakote Er) 500 mg QHS PO 11/25/20 21:00 11/30/20 22:07 DC 11/29/20 21:19 Divalproex Sodium (Depakote Er) 500 mg QHS PO 11/30/20 22:10 12/06/20 10:27 DC 12/04/20 22:00 Divalproex Sodium (Depakote) 500 mg BID@0800,1600 PO 01/11/21 08:00 01/13/21 15:33 Docusate Sodium (Colace) 100 mg BID PO 11/12/20 09:00 01/13/21 09:45 Enoxaparin Sodium (Lovenox) 40 mg DAILY SC 12/21/20 09:00 01/06/21 09:58 DC 01/06/21 09:00 Haloperidol (Haldol) 5 mg BID@0800,2000 IM 12/15/20 20:00 12/16/20 10:47 DC 12/15/20 22:04 Haloperidol (Haldol) 5 mg Q6HP PRN PO AGITATION 12/03/20 12:25 12/24/20 09:59 Haloperidol (Haldol) 5 mg QHS IM 12/16/20 10:45 12/16/20 10:50 DC Haloperidol (Haldol) 5 mg QHS IM 12/16/20 21:00 01/04/21 10:02 DC 01/03/21 21:13 Haloperidol (Haldol) 5 mg QHS PO 01/04/21 21:00 01/12/21 21:36 Haloperidol (Haldol) 5 mg STAT STAT IM 12/19/20 07:40 12/19/20 07:42 DC 12/19/20 07:56 Ketorolac Tromethamine (ToRADol) 30 mg BIDP PRN IM PAIN LEVEL 6-10 12/14/20 09:20 01/09/21 16:28 DC 12/17/20 08:45 Ketorolac Tromethamine (ToRADol) 30 mg Q6H PRN IM PAIN LEVEL 5-10 12/14/20 09:45 12/14/20 09:47 DC Levetiracetam (Keppra Oral Solution) 500 mg BID PO 11/12/20 09:00 01/11/21 08:26 DC 01/10/21 21:00 Levetiracetam (Keppra) 500 mg BID PO 01/11/21 09:00 01/13/21 09:45 Levothyroxine Sodium (Synthroid) 100 mcg DAILY@06 PO 11/12/20 06:00 01/13/21 06:17 Lorazepam (Ativan) 0.5 mg BID PO 11/17/20 09:00 11/18/20 08:31 DC 11/17/20 19:56 Lorazepam (Ativan) 1 mg BID PO 11/14/20 09:00 11/17/20 07:27 DC 11/16/20 20:33 Lorazepam (Ativan) 1 mg QHS PO 12/01/20 21:00 12/06/20 10:27 DC 12/04/20 21:59 Lorazepam (Ativan) 1 mg STAT STAT IM 12/17/20 15:43 12/17/20 15:45 DC 12/17/20 16:04 Lorazepam (Ativan) 1 mg TID PO 12/06/20 09:00 12/12/20 08:49 DC 12/11/20 10:31 Magnesium Hydroxide (Milk Of Magnesia) 30 ml DAILYPRN PRN PO CONSTIPATION 11/11/20 19:40 Miscellaneous (Unresolved Clarification Entry) SEE LABEL COMMENTS DAILY XX 12/11/20 09:00 12/13/20 09:04 DC Miscellaneous (Unresolved Clarification Entry) SEE LABEL COMMENTS DAILY XX 12/25/20 09:00 12/25/20 12:41 DC Miscellaneous (Unresolved Clarification Entry) SEE LABEL COMMENTS DAILY XX 12/26/20 09:00 12/26/20 10:48 DC Miscellaneous (Unresolved Clarification Entry) SEE LABEL COMMENTS DAILY XX 12/29/20 09:00 12/30/20 12:15 DC Miscellaneous (Unresolved Clarification Entry) SEE LABEL COMMENTS DAILY XX 12/30/20 09:00 01/01/21 11:18 DC Miscellaneous (Unresolved Clarification Entry) SEE LABEL COMMENTS QID XX 01/01/21 09:00 01/01/21 12:44 DC Miscellaneous (Unresolved Clarification Entry) SEE LABEL COMMENTS UNRESOLVED XX 01/04/21 00:01 01/04/21 10:13 DC Miscellaneous (Unresolved Clarification Entry) SEE LABEL COMMENTS UNRESOLVED XX 01/06/21 00:01 01/06/21 09:12 DC Miscellaneous (Unresolved Clarification Entry) SEE LABEL COMMENTS UNRESOLVED XX 01/06/21 00:01 01/06/21 15:21 DC Miscellaneous (Unresolved Clarification Entry) SEE LABEL COMMENTS UNRESOLVED XX 01/10/21 00:01 01/09/21 14:12 DC Nystatin (Mycostatin Powder, Nystop) APPLY TO AREAS OF RASH BIDP PRN TOP RASH 12/15/20 18:45 12/25/20 22:46 Oxycodone/ Acetaminophen (Percocet 5mg/ 325mg Tablet) 1 tab Q6HP PRN PO MODERATE PAIN (PS 5-7) 12/13/20 16:10 12/25/20 12:40 DC 12/18/20 19:59 Pantoprazole Sodium (Protonix) 40 mg DAILY PO 11/12/20 09:00 01/13/21 09:44 Polyethylene Glycol (Miralax) 1 pkt DAILY PO 11/12/20 09:00 01/13/21 09:44 Quetiapine Fumarate (SEROquel) 100 mg QHS PO 11/13/20 21:00 11/18/20 08:31 DC 11/17/20 19:56 Quetiapine Fumarate (SEROquel) 100 mg QHS PO 11/23/20 21:00 12/01/20 09:14 DC 11/29/20 21:19 Quetiapine Fumarate (SEROquel) 200 mg QHS PO 12/01/20 21:00 01/12/21 21:36 Risperidone (RisperDAL Consta) 37.5 mg Q14D@09 IM 12/07/20 09:00 12/07/20 10:54 DC Risperidone (RisperDAL Consta) 37.5 mg Q14D@09 IM 12/08/20 09:00 01/05/21 09:41 Risperidone (RisperDAL Consta) 37.5 mg Q14D@09 IM 12/22/20 09:30 UNV Risperidone (RisperDAL LIQUID) 4 mg QHS PO 11/12/20 21:00 11/14/20 08:57 DC 11/12/20 21:48 Risperidone (RisperDAL) 2 mg BID PO 11/14/20 09:00 11/21/20 09:34 DC 11/20/20 21:02 Risperidone (RisperDAL) 2 mg QHS PO 11/21/20 21:00 11/23/20 08:57 DC 11/22/20 20:41 Risperidone (RisperDAL) 2 mg QHS PO 12/13/20 21:00 12/22/20 09:28 DC 12/20/20 21:55 Risperidone (RisperDAL) 3 mg QHS PO 11/23/20 21:00 11/28/20 09:00 DC 11/27/20 21:58 Risperidone (RisperDAL) 4 mg DAILY@1700 PO 12/07/20 17:00 12/13/20 09:03 DC Risperidone (RisperDAL) 4 mg QHS PO 11/28/20 21:00 12/06/20 10:27 DC 12/04/20 22:01 Risperidone (RisperDAL) 4 mg QPM PO 12/06/20 17:00 12/07/20 09:42 DC 12/06/20 20:49 Sodium Chloride ([place] Saline Nasal Gel) APPLY SMALL RADHIKA... Q4HP PRN NA NASAL DRYNESS 12/02/20 10:50 01/01/21 10:49 DC Trazodone HCl (Desyrel) 50 mg QHSP PRN PO INSOMNIA 11/11/20 19:40 01/11/21 20:39 Valproic Acid (Depakene Solution) 500 mg 0800,1600 PO 12/06/20 08:00 01/11/21 08:26 DC 01/10/21 16:05 Valproic Acid (Depakene) 500 mg BID PO 12/06/20 09:00 Cancel Allergies Coded Allergies: Sulfa (Sulfonamide Antibiotics) (Verified Allergy, Unknown, 01/21/19) aspirin (Verified Allergy, Unknown, 01/21/19) YOLY ENRIQUEZ MD Jan 13, 2021 16:34
[2021-01-13] MEDS: diphenhydrAMINE 50MG CAP PO SCH (21:10)
[2021-01-13] MEDS: QUEtiapine FUMARATE 200 MG TAB PO SCH (21:10)
[2021-01-13] MEDS: haloperidoL 5 MG TAB PO SCH (21:10)
[2021-01-14 06:25] VITALS: BP 110/61
[2021-01-14] MEDS: BENZTROPINE 1 MG TAB PO SCH ×2 (09:56→21:21)
[2021-01-14] MEDS: PANTOPRAZOLE 40MG TAB (PROTONIX) PO SCH (09:56)
[2021-01-14] MEDS: MIRALAX *UNIT DOSE* 17GM PACKET PO SCH (09:56)
[2021-01-14] MEDS: levETIRAcetam 250MG TABLET (KEPPRA) PO SCH ×2 (09:56→21:21)
[2021-01-14] MEDS: DOCUSATE SODIUM 100MG CAPSULE PO SCH ×2 (09:56→21:21)
[2021-01-14] MEDS: DIVALPROEX 500 MG TAB PO SCH ×2 (09:57→17:01)
[2021-01-14] MEDS: LEVOTHYROXINE 100MCG TABLET (0.1MG) PO SCH (09:57)
[2021-01-14] MEDS: amLODIPine 5 MG TAB PO SCH (10:01)
[2021-01-14] MEDS: ACETAMINOPHEN TAB 650MG DOSE (2X325MG) PO PRN (13:17)
[2021-01-14 16:28] VITALS: BP_SYST 102; BP_SYST 138; BP_DIAS 57; BP_DIAS 90
[2021-01-14] MEDS: haloperidoL 5 MG TAB PO SCH (21:21)
[2021-01-14] MEDS: QUEtiapine FUMARATE 200 MG TAB PO SCH (21:21)
[2021-01-14] MEDS: diphenhydrAMINE 50MG CAP PO SCH (21:21)
[2021-01-15] MEDS: LEVOTHYROXINE 100MCG TABLET (0.1MG) PO SCH (05:57)
[2021-01-15 06:50] VITALS: BP 135/80
[2021-01-15] MEDS: DIVALPROEX 500 MG TAB PO SCH ×2 (07:48→15:31)
[2021-01-15] MEDS: levETIRAcetam 250MG TABLET (KEPPRA) PO SCH ×2 (09:38→21:03)
[2021-01-15] MEDS: MIRALAX *UNIT DOSE* 17GM PACKET PO SCH (09:38)
[2021-01-15] MEDS: BENZTROPINE 1 MG TAB PO SCH ×2 (09:38→21:03)
[2021-01-15] MEDS: PANTOPRAZOLE 40MG TAB (PROTONIX) PO SCH (09:39)
[2021-01-15] MEDS: DOCUSATE SODIUM 100MG CAPSULE PO SCH ×2 (09:39→21:03)
[2021-01-15] MEDS: amLODIPine 5 MG TAB PO SCH (09:51)
[2021-01-15 16:29] VITALS: BP 142/72
[2021-01-15] MEDS: diphenhydrAMINE 50MG CAP PO SCH (21:03)
[2021-01-15] MEDS: haloperidoL 5 MG TAB PO SCH (21:03)
[2021-01-15] MEDS: QUEtiapine FUMARATE 200 MG TAB PO SCH (21:03)
[2021-01-16 05:46] VITALS: BP 155/78
[2021-01-16] MEDS: LEVOTHYROXINE 100MCG TABLET (0.1MG) PO SCH (06:33)
[2021-01-16] MEDS: MIRALAX *UNIT DOSE* 17GM PACKET PO SCH (09:00)
[2021-01-16] MEDS: levETIRAcetam 250MG TABLET (KEPPRA) PO SCH ×2 (10:09→21:51)
[2021-01-16] MEDS: DOCUSATE SODIUM 100MG CAPSULE PO SCH ×2 (10:09→21:51)
[2021-01-16] MEDS: amLODIPine 5 MG TAB PO SCH (10:10)
[2021-01-16] MEDS: BENZTROPINE 1 MG TAB PO SCH ×2 (10:10→21:51)
[2021-01-16] MEDS: PANTOPRAZOLE 40MG TAB (PROTONIX) PO SCH (10:10)
[2021-01-16] MEDS: DIVALPROEX 500 MG TAB PO SCH ×2 (10:11→17:26)
--- NOTE | 2021-01-16 10:41 | MHIPNPDOC ---
[facility] Progress Note Progress Note DATE OF SERVICE: 01/16/21 HISTORY: Patient is a 70 y/o woman with a reported PPH of bipolar disorder who was admitted to medicine November 04 after a suspected overdose, home was noted to be a disorganized living situation. On the unit patient is a 1:1 for fall risk/unsteady gait. Per chart review patient has made improvements on medications and is pending an OT/PT evaluation for disposition. Interval: Patient was seen privately, in the common room with the door closed and nursing staff present. Patient appears jovial, was eating breakfast, per staff is taking oral medication with no issue, was able to shower unassisted last night, able to ambulate with assistance. He is not perseverating on pain today. Denies suicidal ideation, intent or plan. VITAL SIGNS: See below. NEW TEST RESULTS: None CURRENT MEDICATIONS: See below. MENTAL STATUS EXAMINATION: Patient is a 70-year old female, who appears older than her stated age, elevated BMI, fair hygiene, sitting in chair in common area privately. Speech: Is normal, slurred, improved volume Language skills are fair Thought processes including: Continues to be circumstantial, with periods of linear conversation Thought content: Denies suicidal ideation Abstract reasoning, and computation: poor, somewhat improving with medications Description of associations: fair Description of abnormal or psychotic thoughts: Denies Judgment: improving Insight: Poor Orientation: Intact Recent and remote memory: Poor Attention span and concentration: Poor Language: Intact Fund of knowledge: Below average Mood: "All right" : Affect: Unchanged, euthymic, mildly disorganized, congruent, appropriate DIAGNOSES: 1. Schizoaffective disorder per hx, R/O neurocognitive disorder 2. R/O Bipolar disorder, schizophrenia 3. R ankle pain/tenderness ASSESSMENT: Continued on current medication regimen, without acute distress or side effects reported. More engaged on the unit per nursing staff. Agrees to plan for supportive care to help with her medications and medical needs. MANAGEMENT PLAN: Ordered fasting labs for review tomorrow. Reviewed medical complaints, which are stable. Continue with inpatient stay pending placement to [facility], coordinated with social and now placed on [facility]. Received a message that Dr. Colvin was trying to reach me last Saturday, called Dr. Colvin back and left a message with my number, as call was not answered and went to voicemail for coordination of care. Total time 20 minutes Vital Signs Vital Signs Date Time Temp Pulse Resp B/P (MAP) Pulse Ox O2 Delivery O2 Flow Rate FiO2 01/16/21 10:10 148/80 01/16/21 05:46 97.5 105 18 96 Room Air Current Medications Current Medications Medications (Trade) Dose Ordered Sig/Marisa Route PRN Reason Start Time Stop Time Status Last Admin Dose Admin Acetaminophen (Tylenol Tab) 650 mg Q6HP PRN PO HEADACHE or MILD DISCOMFORT 11/11/20 19:40 01/14/21 13:17 Al Hydrox/Mg Hydrox/Simethicone (Mylanta) 30 ml Q4HP PRN PO HEARTBURN/INDIGESTION 11/11/20 19:40 Amlodipine Besylate (Norvasc) 5 mg DAILY PO 11/12/20 09:00 01/16/21 10:10 Benztropine Mesylate (Cogentin) 1 mg BID PO 12/13/20 09:00 01/16/21 10:10 Ceftriaxone Sodium (Rocephin) 1 gm Q24H IM 12/08/20 18:00 12/15/20 17:59 DC 12/14/20 17:36 Cephalexin Monohydrate (Keflex) 500 mg Q6H PO 12/04/20 18:00 12/08/20 18:01 DC 12/05/20 12:51 Diphenhydramine HCl (Benadryl) 50 mg BID@0800,1999 IM 12/15/20 08:00 12/15/20 10:58 DC Diphenhydramine HCl (Benadryl) 50 mg BID@0800,1999 IM 12/15/20 20:00 12/16/20 10:47 DC 12/15/20 22:04 Diphenhydramine HCl (Benadryl) 50 mg Q6HP PRN PO AGITATION 12/03/20 12:25 12/20/20 09:24 Diphenhydramine HCl (Benadryl) 50 mg QHS IM 12/16/20 10:45 12/16/20 10:50 DC Diphenhydramine HCl (Benadryl) 50 mg QHS IM 12/16/20 21:00 01/04/21 10:02 DC 01/03/21 21:13 Diphenhydramine HCl (Benadryl) 50 mg QHS PO 01/04/21 21:00 01/15/21 21:03 Diphenhydramine HCl (Benadryl) 50 mg STAT STAT IM 12/19/20 07:40 12/19/20 07:42 DC 12/19/20 07:56 Divalproex Sodium (Depakote Sprinkles) 500 mg BID PO 11/13/20 09:00 11/25/20 11:02 DC 11/25/20 09:30 Divalproex Sodium (Depakote Er) 250 mg DAILY PO 11/26/20 09:00 12/02/20 07:14 DC 12/01/20 09:55 Divalproex Sodium (Depakote Er) 500 mg BID PO 11/13/20 09:00 11/13/20 09:00 DC Divalproex Sodium (Depakote Er) 500 mg DAILY PO 12/04/20 09:00 12/06/20 10:27 DC 12/05/20 12:43 Divalproex Sodium (Depakote Er) 500 mg DAILY PO 12/02/20 09:00 12/04/20 08:53 DC Divalproex Sodium (Depakote Er) 500 mg QHS PO 11/25/20 21:00 11/30/20 22:07 DC 11/29/20 21:19 Divalproex Sodium (Depakote Er) 500 mg QHS PO 11/30/20 22:10 12/06/20 10:27 DC 12/04/20 22:00 Divalproex Sodium (Depakote) 500 mg BID@0800,1600 PO 01/11/21 08:00 01/16/21 10:11 Docusate Sodium (Colace) 100 mg BID PO 11/12/20 09:00 01/16/21 10:09 Enoxaparin Sodium (Lovenox) 40 mg DAILY SC 12/21/20 09:00 01/06/21 09:58 DC 01/06/21 09:00 Haloperidol (Haldol) 5 mg BID@0800,2000 IM 12/15/20 20:00 12/16/20 10:47 DC 12/15/20 22:04 Haloperidol (Haldol) 5 mg Q6HP PRN PO AGITATION 12/03/20 12:25 12/24/20 09:59 Haloperidol (Haldol) 5 mg QHS IM 12/16/20 10:45 12/16/20 10:50 DC Haloperidol (Haldol) 5 mg QHS IM 12/16/20 21:00 01/04/21 10:02 DC 01/03/21 21:13 Haloperidol (Haldol) 5 mg QHS PO 01/04/21 21:00 01/15/21 21:03 Haloperidol (Haldol) 5 mg STAT STAT IM 12/19/20 07:40 12/19/20 07:42 DC 12/19/20 07:56 Ketorolac Tromethamine (ToRADol) 30 mg BIDP PRN IM PAIN LEVEL 6-10 12/14/20 09:20 01/09/21 16:28 DC 12/17/20 08:45 Ketorolac Tromethamine (ToRADol) 30 mg Q6H PRN IM PAIN LEVEL 5-10 12/14/20 09:45 12/14/20 09:47 DC Levetiracetam (Keppra Oral Solution) 500 mg BID PO 11/12/20 09:00 01/11/21 08:26 DC 01/10/21 21:00 Levetiracetam (Keppra) 500 mg BID PO 01/11/21 09:00 01/16/21 10:09 Levothyroxine Sodium (Synthroid) 100 mcg DAILY@06 PO 11/12/20 06:00 01/16/21 06:33 Lorazepam (Ativan) 0.5 mg BID PO 11/17/20 09:00 11/18/20 08:31 DC 11/17/20 19:56 Lorazepam (Ativan) 1 mg BID PO 11/14/20 09:00 11/17/20 07:27 DC 11/16/20 20:33 Lorazepam (Ativan) 1 mg QHS PO 12/01/20 21:00 12/06/20 10:27 DC 12/04/20 21:59 Lorazepam (Ativan) 1 mg STAT STAT IM 12/17/20 15:43 12/17/20 15:45 DC 12/17/20 16:04 Lorazepam (Ativan) 1 mg TID PO 12/06/20 09:00 12/12/20 08:49 DC 12/11/20 10:31 Magnesium Hydroxide (Milk Of Magnesia) 30 ml DAILYPRN PRN PO CONSTIPATION 11/11/20 19:40 Miscellaneous (Unresolved Clarification Entry) SEE LABEL COMMENTS DAILY XX 12/11/20 09:00 12/13/20 09:04 DC Miscellaneous (Unresolved Clarification Entry) SEE LABEL COMMENTS DAILY XX 12/25/20 09:00 12/25/20 12:41 DC Miscellaneous (Unresolved Clarification Entry) SEE LABEL COMMENTS DAILY XX 12/26/20 09:00 12/26/20 10:48 DC Miscellaneous (Unresolved Clarification Entry) SEE LABEL COMMENTS DAILY XX 12/29/20 09:00 12/30/20 12:15 DC Miscellaneous (Unresolved Clarification Entry) SEE LABEL COMMENTS DAILY XX 12/30/20 09:00 01/01/21 11:18 DC Miscellaneous (Unresolved Clarification Entry) SEE LABEL COMMENTS QID XX 01/01/21 09:00 01/01/21 12:44 DC Miscellaneous (Unresolved Clarification Entry) SEE LABEL COMMENTS UNRESOLVED XX 01/04/21 00:01 01/04/21 10:13 DC Miscellaneous (Unresolved Clarification Entry) SEE LABEL COMMENTS UNRESOLVED XX 01/06/21 00:01 01/06/21 09:12 DC Miscellaneous (Unresolved Clarification Entry) SEE LABEL COMMENTS UNRESOLVED XX 01/06/21 00:01 01/06/21 15:21 DC Miscellaneous (Unresolved Clarification Entry) SEE LABEL COMMENTS UNRESOLVED XX 01/10/21 00:01 01/09/21 14:12 DC Nystatin (Mycostatin Powder, Nystop) APPLY TO AREAS OF RASH BIDP PRN TOP RASH 12/15/20 18:45 12/25/20 22:46 Oxycodone/ Acetaminophen (Percocet 5mg/ 325mg Tablet) 1 tab Q6HP PRN PO MODERATE PAIN (PS 5-7) 12/13/20 16:10 12/25/20 12:40 DC 12/18/20 19:59 Pantoprazole Sodium (Protonix) 40 mg DAILY PO 11/12/20 09:00 01/16/21 10:10 Polyethylene Glycol (Miralax) 1 pkt DAILY PO 11/12/20 09:00 01/15/21 09:38 Quetiapine Fumarate (SEROquel) 100 mg QHS PO 11/13/20 21:00 11/18/20 08:31 DC 11/17/20 19:56 Quetiapine Fumarate (SEROquel) 100 mg QHS PO 11/23/20 21:00 12/01/20 09:14 DC 11/29/20 21:19 Quetiapine Fumarate (SEROquel) 200 mg QHS PO 12/01/20 21:00 01/15/21 21:03 Risperidone (RisperDAL Consta) 37.5 mg Q14D@09 IM 12/07/20 09:00 12/07/20 10:54 DC Risperidone (RisperDAL Consta) 37.5 mg Q14D@09 IM 12/08/20 09:00 01/05/21 09:41 Risperidone (RisperDAL Consta) 37.5 mg Q14D@09 IM 12/22/20 09:30 UNV Risperidone (RisperDAL LIQUID) 4 mg QHS PO 11/12/20 21:00 11/14/20 08:57 DC 11/12/20 21:48 Risperidone (RisperDAL) 2 mg BID PO 11/14/20 09:00 11/21/20 09:34 DC 11/20/20 21:02 Risperidone (RisperDAL) 2 mg QHS PO 11/21/20 21:00 11/23/20 08:57 DC 11/22/20 20:41 Risperidone (RisperDAL) 2 mg QHS PO 12/13/20 21:00 12/22/20 09:28 DC 12/20/20 21:55 Risperidone (RisperDAL) 3 mg QHS PO 11/23/20 21:00 11/28/20 09:00 DC 11/27/20 21:58 Risperidone (RisperDAL) 4 mg DAILY@1700 PO 12/07/20 17:00 12/13/20 09:03 DC Risperidone (RisperDAL) 4 mg QHS PO 11/28/20 21:00 12/06/20 10:27 DC 12/04/20 22:01 Risperidone (RisperDAL) 4 mg QPM PO 12/06/20 17:00 12/07/20 09:42 DC 12/06/20 20:49 Sodium Chloride ([place] Saline Nasal Gel) APPLY SMALL RADHIKA... Q4HP PRN NA NASAL DRYNESS 7/9/21 10:50 01/01/21 10:49 DC Trazodone HCl (Desyrel) 50 mg QHSP PRN PO INSOMNIA 11/11/20 19:40 01/11/21 20:39 Valproic Acid (Depakene Solution) 500 mg 0800,1600 PO 12/06/20 08:00 01/11/21 08:26 DC 01/10/21 16:05 Valproic Acid (Depakene) 500 mg BID PO 12/06/20 09:00 Cancel Allergies Coded Allergies: Sulfa (Sulfonamide Antibiotics) (Verified Allergy, Unknown, 01/21/19) aspirin (Verified Allergy, Unknown, 01/21/19) YOLY ENRIQUEZ MD Jan 16, 2021 10:41
[2021-01-16] MEDS: ACETAMINOPHEN TAB 650MG DOSE (2X325MG) PO PRN (15:17)
[2021-01-16 19:22] VITALS: BP 138/66
[2021-01-16] MEDS: haloperidoL 5 MG TAB PO SCH (21:50)
[2021-01-16] MEDS: QUEtiapine FUMARATE 200 MG TAB PO SCH (21:51)
[2021-01-16] MEDS: diphenhydrAMINE 50MG CAP PO SCH (21:51)
[2021-01-17] MEDS: LEVOTHYROXINE 100MCG TABLET (0.1MG) PO SCH (05:57)
[2021-01-17 06:31] VITALS: BP 139/58
[2021-01-17 07:14] LABS: CHOLESTEROL RISK RATIO 4.358 (<5)
[2021-01-17 07:22] LABS: HEMOGLOBIN A1c 5.4 %
[2021-01-17] MEDS: DIVALPROEX 500 MG TAB PO SCH ×2 (08:29→16:53)
[2021-01-17] MEDS: MIRALAX *UNIT DOSE* 17GM PACKET PO SCH (09:00)
[2021-01-17] MEDS: levETIRAcetam 250MG TABLET (KEPPRA) PO SCH (09:49)
[2021-01-17] MEDS: PANTOPRAZOLE 40MG TAB (PROTONIX) PO SCH (09:50)
[2021-01-17] MEDS: DOCUSATE SODIUM 100MG CAPSULE PO SCH (09:50)
[2021-01-17] MEDS: BENZTROPINE 1 MG TAB PO SCH (09:50)
[2021-01-17 09:51] VITALS: BP 128/62
[2021-01-17] MEDS: amLODIPine 5 MG TAB PO SCH (09:51)
[2021-01-17] MEDS ORDERED: COLA100C5 PO (12:52)
[2021-01-17] MEDS ORDERED: DEPA1TAB3 PO (12:52)
[2021-01-17] MEDS ORDERED: BENZ-52 PO (12:52)
[2021-01-17] MEDS ORDERED: PANT40TA29 PO (12:52)
[2021-01-17] MEDS ORDERED: KEPP250T5 PO (12:52)
[2021-01-17] MEDS ORDERED: HALO5TA PO (12:52)
[2021-01-17] MEDS ORDERED: LEVO100T5 PO (12:52)
[2021-01-17] MEDS ORDERED: MOM30SS2 PO (12:52)
[2021-01-17] MEDS ORDERED: RISP37INJ IM (12:52)
[2021-01-17] MEDS ORDERED: TRAZ-252 PO (12:52)
[2021-01-17] MEDS ORDERED: MIRA1POW3 PO (12:52)
[2021-01-17] MEDS ORDERED: ACET1TAB55 PO (12:52)
[2021-01-17] MEDS ORDERED: QUET200T2 PO (12:52)
[2021-01-17] MEDS ORDERED: AMLO1TAB24 PO (12:52)
[2021-01-17] MEDS ORDERED: MYLASSUD PO (12:52)
[2021-01-17] MEDS ORDERED: NYST10006 TOP (12:52)
--- NOTE | 2021-01-17 17:45 | MHDSPDOC ---
[facility] Discharge Summary Discharge Summary DATE OF ADMISSION: Nov 11, 2020 at 21:23 DATE OF DISCHARGE: DISCHARGE DIAGNOSES: 1. Schizoaffective disorder, mixed, with psychosis 2. Unspecified neurocognitive disorder REASON FOR ADMISSION: Patient admitted from medical floor November 11 after psychiatric consult for suspected intentional overdose, and admitted on . Was started on home medications including thyroid hormone. She was found unresponsive and in a disheveled living situation. Initially was not verbally responsive. Was placed on 1:1 for fall risk. Ativan was discontinued as tolerated and improved on medications. Medications were reduced then increased due to breakthrough agitation. Long acting risperidone was started 37.5 mg every 2 weeks, 12/08, 12/22, 01/05. CONSULTANTS INVOLVED: See medical H and P by hospitalist TREATMENT AND PROGRESS ON THE UNIT : Patient was admitted on a legal status, was afforded the following treatment modalities: 1. Individual therapy 2. Group therapy 3. Medication management 4. Milieu therapy 5. Safe environment 6. 1:1 observation 7. PT/OT evaluations HOSPITAL COURSE: Patient was admitted on a legal status after being medically cleared, she initially was very irritable, rambling, pressured, incoherent, chart review shows stabilized on risperdal, depakote and seroquel. Was inherited by previous psychiatrist on multiple antipsychotic medications for stabilization, and per charge review multiple de-stabilizations with discont inuation or titration down of dosages. Per chart review was started on low doses of medications. Due to agitation and non compliance with risperidone, low dose lorazepam was added to regimen. Patient got up and fell sustaining fracture 12/12, was evaluated with CT head (no acute pathology), neck, xrays and CT R upper extremity found to have multiple fractures R upper extremity. Was treated with splinting. 12/20 received haldol and benadryl injection for agitation. 01/04 due to improvement with prn haldol injections at night with less agitation 5 mg qhs added to regimen. Depakote levels were evaluated with increasing doses of medication for monitoring. 01/10 medicine re-evaluated fracture with xrays, findings unremarkable on ankle xray or CT, was encouraged to have splint/wrappings in place on R arm for 4 more weeks, RHIANNA wrap for R ankle for sprain, rest ice and elevation as well, NSAIDS for breakthrough pain. Was evaluated by PT and OT, found to need assistance for basic ADLs. Social work help coordinate placement in [facility],which is pending. DISCHARGE ASSESSMENT: Prior to discharge patient was tolerating medication with good effect, she is alert and oriented to person and place, dressed in hospital clothing, eating and showering with minimal assistance, has less agitation. Denies depression and anxiety, denies psychotic symptoms apart form being mildly disorganized at times (mornings), denies suicidal ideation or plan or intent. Denies homicidal ideation or plan or intent. no longer has periods of agitation. No paranoia, or bizarre delusions. Has normal mentation. Agreeable to discharge wiley. MENTAL STATUS EXAMINATION ON DISCHARGE: Patient is a 70-year old female, who appears older than her stated age, elevated BMI, fair hygiene, sitting in chair in common area privately. Speech: Is normal, poor enunciation, rambling at times, improved volume Language skills are fair Thought processes including: Continues to be circumstantial, with periods of linear conversation Thought content: Denies suicidal ideation Abstract reasoning, and computation: poor, somewhat improving with medications Description of associations: fair Description of abnormal or psychotic thoughts: Denies Judgment: improving Insight: Poor Orientation: Intact to person place, year, month Recent and remote memory: Poor Attention span and concentration: Poor Language: Intact Fund of knowledge: Below average Mood: "good" : Affect: Euthymic, calm, mildly disorganized, congruent, appropriate MEDICATIONS ON DISCHARGE: -see medication reconciliation PLAN/FOLLOWUP ARRANGEMENTS: Transferred to medical floor for [facility], pending [facility] placement, patient psychiatrically cleared and stable on regimen, please feel free to contact psychiatry if needs psychiatric consult prior to discharge. Next risperdal consta 37.5 mg GARCIA due 01/19/21, then continue q2 weeks. Needs orthopedic follow up for R upper extremity fracture [phone] on discharge. The amount of time spent in the coordination of care for this patient was approximately 40 minutes. ETOH/Disorder Med Rx ETOH/DRUG DISORDER RX: N/A Vital Signs/I&Os Vital Signs Date Time Temp Pulse Resp B/P (MAP) Pulse Ox O2 Delivery O2 Flow Rate FiO2 01/17/21 09:51 72 128/62 01/17/21 06:31 96.9 18 93 Room Air Laboratory Data Labs 24H Laboratory Tests 2 01/17/21 06:34: Estimated Mean Plasma Glucose 108, Hemoglobin A1c 5.4, Triglycerides Level 104, Total Cholesterol 170, LDL Cholesterol 110H, Non-HDL Cholesterol (LDL + VLDL) 131, Total HDL Cholesterol 39L, Cholesterol/HDL Ratio 4.358 Medications Scheduled Amlodipine Besylate (Amlodipine Besylate) 5 Mg Tablet, 5 MG PO DAILY for BP, #30 Benztropine Mesylate (Benztropine Mesylate) 1 Mg Tablet, 1 MG PO BID for eps, #30 Divalproex Sodium (Depakote) 500 Mg Tablet.dr, 500 MG PO BID@0800,1600 for schizoaffective, #30 Docusate Sodium (Colace) 100 Mg Capsule, 100 MG PO BID for constipation, #30 Haloperidol (Haloperidol) 5 Mg Tablet, 5 MG PO QHS for schizoaffactive disorder, #30 Levetiracetam (Keppra) 250 Mg Tablet, 500 MG PO BID for seizures, #30 Levothyroxine Sodium (Levothyroxine Sodium) 100 Mcg Tablet, 100 MCG PO DAILY@06 for hypothyroid, #30 Pantoprazole Sodium (Pantoprazole Sodium) 40 Mg Tablet.dr, 40 MG PO DAILY for gerd, #30 Polyethylene Glycol 3350 (Miralax) 17 Gm Powd.pack, 1 PKT PO DAILY for constipation, #30 Quetiapine Fumarate (Quetiapine Fumarate) 200 Mg Tablet, 200 MG PO QHS for schizoaffective, #30 Risperidone (Risperdal Consta) 37.5 Mg/2 Ml Syringe, 37.5 MG IM Q14D@09 for schizoaffective, #30 Scheduled PRN Acetaminophen (Acetaminophen) 325 Mg Tablet, 650 MG PO Q6HP PRN for HEADACHE or MILD DISCOMFORT, #30 Aluminum/Magnesium/Simeth (Mag-Al Plus Suspension) 30 Ml Oral.susp, 30 ML PO Q4HP PRN for HEARTBURN/INDIGESTION, #30 Magnesium Hydroxide (Milk of Magnesia) 400 Mg/5 Ml Oral.susp, 30 ML PO DAILYPRN PRN for CONSTIPATION, #30 Nystatin (Nystop) 60 Gm Powder, 0 DOSE TOP BIDP PRN for RASH, #30 Trazodone HCl (Trazodone HCl) 50 Mg Tablet, 50 MG PO QHSP PRN for INSOMNIA, #30 Allergies Coded Allergies: Sulfa (Sulfonamide Antibiotics) (Verified Allergy, Unknown, 01/21/19) aspirin (Verified Allergy, Unknown, 01/21/19) YOLY ENRIQUEZ MD Jan 17, 2021 17:45
== END 2021-01-17 17:40 | disposition short-term general hospital (02) | DRG 885 ==
LOC: M PSY 21:23
PROVIDERS: ADMIT Psychiatry & Neurology Psychiatry; ATTEND Student in an Organized Health Care Education/Training Program
DX: F25.0 Schizoaffective disorder, bipolar type (principal); N17.9 Acute kidney failure, unspecified; S52.501A Unspecified fracture of the lower end of right radius, initial encounter for closed fracture; R41.9 Unspecified symptoms and signs involving cognitive functions and awareness; Z91.14 Patient's other noncompliance with medication regimen; Z88.2 Allergy status to sulfonamides; Z88.6 Allergy status to analgesic agent; Z79.899 Other long term (current) drug therapy; K21.9 Gastro-esophageal reflux disease without esophagitis; I10 Essential (primary) hypertension; E78.5 Hyperlipidemia, unspecified; G43.909 Migraine, unspecified, not intractable, without status migrainosus; M81.0 Age-related osteoporosis without current pathological fracture; M19.90 Unspecified osteoarthritis, unspecified site; F03.90 Unspecified dementia, unspecified severity, without behavioral disturbance, psychotic disturbance, mood disturbance, and anxiety; E03.9 Hypothyroidism, unspecified; F41.9 Anxiety disorder, unspecified; K59.00 Constipation, unspecified; W18.30XA Fall on same level, unspecified, initial encounter; Y92.230 Patient room in hospital as the place of occurrence of the external cause

== ENCOUNTER 2021-01-17 10:18 | Inpatient (IN) | payer MEDICARE, MEDICAID ==
[2021-01-17] MEDS ORDERED: haloperidoL 5 MG TAB PO PRN (12:20)
[2021-01-17] MEDS ORDERED: diphenhydrAMINE 50MG CAP PO PRN (12:20)
[2021-01-17] MEDS ORDERED: DOCUSATE SODIUM 100MG CAPSULE PO PRN (12:25)
[2021-01-17] MEDS ORDERED: MAALOX 30 ML SUSP *UDC PO PRN (12:25)
[2021-01-17] MEDS ORDERED: traZODone 50 MG TAB PO PRN (12:25)
[2021-01-17] MEDS ORDERED: MIRALAX *UNIT DOSE* 17GM PACKET PO PRN (12:25)
[2021-01-17] MEDS ORDERED: MOM 30ML SUSPENSION UDC PO PRN (12:25)
[2021-01-17] MEDS ORDERED: LEVO100T5 PO (12:52)
[2021-01-17] MEDS ORDERED: QUET200T2 PO (12:52)
[2021-01-17] MEDS ORDERED: BENZ-52 PO (12:52)
[2021-01-17] MEDS ORDERED: AMLO1TAB24 PO (12:52)
[2021-01-17] MEDS ORDERED: RISP37INJ IM (12:52)
[2021-01-17] MEDS ORDERED: MIRA1POW3 PO (12:52)
[2021-01-17] MEDS ORDERED: KEPP250T5 PO (12:52)
[2021-01-17] MEDS ORDERED: PANT40TA29 PO (12:52)
[2021-01-17] MEDS ORDERED: NYST10006 TOP (12:52)
[2021-01-17] MEDS ORDERED: HALO5TA PO (12:52)
[2021-01-17] MEDS ORDERED: ACET1TAB55 PO (12:52)
[2021-01-17] MEDS ORDERED: COLA100C5 PO (12:52)
[2021-01-17] MEDS ORDERED: DEPA1TAB3 PO (12:52)
[2021-01-17] MEDS ORDERED: MOM30SS2 PO (12:52)
[2021-01-17] MEDS ORDERED: TRAZ-252 PO (12:52)
[2021-01-17] MEDS ORDERED: MYLASSUD PO (12:52)
--- NOTE | 2021-01-17 12:53 | HPE ---
HISTORY AND PHYSICAL DATE OF ADMISSION: 01/17/2021 HISTORY OF PRESENT ILLNESS: This is a hospitalist generated history and physical. This patient has been on the Inpatient Mental Health Unit since the middle of October. I was notified today that she would need to be transferred to [facility] status under the hospitalist's care in order to facilitate transfer to [facility]. Patient was admitted 11/04/2020 with intentional drug overdose. She had no complications from this prescription drug overdose. Transferred to the Inpatient Mental Health Unit where she has been for two months. PAST MEDICAL HISTORY: 1. Hypothyroidism. 2. Bipolar disorder. 3. GE reflux. 4. Hypertension. 5. Schizoaffective disorder. 6. Hyperlipidemia. 7. Recurrent vertigo. 8. Anxiety. 9. 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 10. History of migraine headaches. 11. Hyperlipidemia. 12. Osteoporosis. 13. Arthritis. 14. Chronic back pain. 15. Perforated stomach ulcer in 1989. 16. Hearing loss right ear. PAST SURGICAL HISTORY: 1. Repair to perforated gastric ulcer. 2. Total abdominal hysterectomy with BSO secondary to endometrial cancer in 2010. 3. Right breast biopsy x2, negative. 4. Left eyelid repair during childhood. 5. EMB/ECC by Dr. Moctezuma in 2009. 6. Colonoscopy in 2001. ALLERGIES: SULFA AND ASPIRIN. CURRENT MEDICATIONS: 1. Keppra 500 mg b.i.d. 2. Depakote 500 mg b.i.d. 3. Benadryl 50 mg at bedtime. 4. Haldol 5 mg at bedtime. 5. Nystatin powder b.i.d. p.r.n. 6. Cogentin 1 mg b.i.d. 7. Risperdal 37.5 mg IM every two weeks. 8. Haldol 5 mg q.6 hours p.r.n. (last needed over three weeks). 9. Seroquel 200 mg at bedtime. 10. Colace 100 mg b.i.d. 11. MiraLax packet daily. 12. Protonix 40 mg daily. 13. Norvasc 5 mg daily. 14. Levothyroxine 100 mcg daily. 15. Mylanta 30 mL q.4 hours p.r.n. 16. Milk of Magnesia as needed. 17. Tylenol as needed. 18. Trazodone 50 mg at bedtime. PHYSICAL EXAMINATION: VITAL SIGNS: 120/62, pulse 70, respiratory rate 18, 93% O2 saturation. Physical exam will be dictated upon the patient's transfer from [facility] and arrival on the floor. LABORATORY DATA: Most recent labs are from 01/01. White count 5, hemoglobin 11.6, platelets 289. Had a hemoglobin A1c of 5.4 that was drawn today. Had lipids drawn today. Cholesterol 170, LDL 110, HDL 39. IMPRESSION/PLAN: 1. Hypothyroidism. She will be due for a free T4 and TSH in approximately a month. 2. Seizure disorder. Continue her Keppra and Depakote. 3. Various psychiatric disorders. Continue her current antipsychotic medications. 4. Screening for diabetes and hyperlipidemia is taking place, and both screenings are negative. 5. Hypertension. Continue current dose of Amlodipine 5 mg daily. Patient was admitted to [facility] level of care. Physical exam will be dictated as an addendum.
[2021-01-17 17:45] VITALS: BP 130/66
[2021-01-17 17:51] VITALS: BP 130/66
[2021-01-17] MEDS ORDERED: HOME MED LIST COMPLETE! XX SCH (18:55)
[2021-01-17 20:07] LABS: HEMATOCRIT 35.8 % (36.0-47.0); HEMOGLOBIN 11.6 g/dl (12.0-15.5); MEAN CORPUSCULAR HEMOGLOBIN 29.3 pg (27.0-33.0); MEAN CORPUSCULAR HGB CONC 32.4 g/dl (32.0-36.5); MEAN CORPUSCULAR VOLUME 90.4 fl (80.0-96.0); PLATELET COUNT, AUTOMATED 203 10^3/uL (150-450); RED BLOOD COUNT 3.96 10^6/uL (4.00-5.40); WHITE BLOOD COUNT 5.2 10^3/uL (4.0-10.0)
[2021-01-17 20:25] LABS: ALBUMIN 2.9 GM/DL (3.2-5.2); BILIRUBIN,TOTAL 0.1 MG/DL (0.2-1.0); CALCIUM LEVEL 8.4 MG/DL (8.8-10.2); CREATININE FOR GFR 1.03 MG/DL (0.55-1.30); FREE T4 1.05 NG/DL (0.76-1.46); GLOMERULAR FILTRATION RATE 56.6 (>45); POTASSIUM SERUM 4.4 MEQ/L (3.5-5.1); THYROID STIMULATING HORMONE 6.75 uIU/ML (0.358-3.740); TOTAL PROTEIN 6.9 GM/DL (6.4-8.2)
[2021-01-17] MEDS: NYSTATIN 100,000 UNITS/GM TOPICAL PWD 15 GM TOP SCH (21:00)
[2021-01-17] MEDS: BENZTROPINE 1 MG TAB PO SCH (21:50)
[2021-01-17] MEDS: levETIRAcetam 250MG TABLET (KEPPRA) PO SCH (21:50)
[2021-01-17] MEDS: QUEtiapine FUMARATE 200 MG TAB PO SCH (21:50)
[2021-01-17] MEDS: haloperidoL 5 MG TAB PO SCH (21:50)
[2021-01-18 06:00] VITALS: BP 112/57
[2021-01-18] MEDS ORDERED: LEVOTHYROXINE 100MCG TABLET (0.1MG) PO SCH (06:00)
[2021-01-18] MEDS: NYSTATIN 100,000 UNITS/GM TOPICAL PWD 15 GM TOP SCH ×2 (09:00→20:45)
[2021-01-18] MEDS: DIVALPROEX 500 MG TAB PO SCH ×2 (09:55→16:13)
[2021-01-18] MEDS: levETIRAcetam 250MG TABLET (KEPPRA) PO SCH ×2 (09:55→20:45)
[2021-01-18] MEDS: amLODIPine 5 MG TAB PO SCH (09:55)
[2021-01-18] MEDS: BENZTROPINE 1 MG TAB PO SCH ×2 (09:55→20:45)
[2021-01-18] MEDS: PANTOPRAZOLE 40MG TAB (PROTONIX) PO SCH (09:55)
--- NOTE | 2021-01-18 10:30 | IPN ---
PROGRESS NOTE DATE: 01/18/2021 SUBJECTIVE: Janice is on [facility] level of care. I rechecked her today. Yesterday, she seemed withdrawn and I did not know her baseline mental status. Today, she is the same. She mumbles, she is alert, she follows commands. OBJECTIVE: LUNGS: Clear. HEART: Regular rhythm. ABDOMEN: Soft, nontender. EXTREMITIES: No peripheral edema. Moves arms and legs with equal strength. IMPRESSION: She is currently at her baseline mental status with a hefty dose of antipsychotic medications required after a two month [facility] admission. I reviewed her labs. Her TSH is mildly elevated. I am increasing the dose of her levothyroxine to 112 mcg daily, otherwise labs are unremarkable. She should have a repeat free T4, TSH in six to eight weeks.
--- NOTE | 2021-01-18 10:41 | HPE ---
HISTORY AND PHYSICAL DATE OF ADMISSION: 01/17/2021 Janice's history and physical yesterday was dictated, but I did not dictate her physical. PHYSICAL EXAM OF 01/17/2021: VITAL SIGNS: Per flow sheet. GENERAL: She is alert but seems quiet and mumbles a lot. HEENT: Grossly unremarkable. LUNGS: Clear. HEART: Regular rhythm without murmur. ABDOMEN: Soft, nontender. No masses. EXTREMITIES: No peripheral edema. Normal strength in the arms and legs.
[2021-01-18] MEDS: QUEtiapine FUMARATE 200 MG TAB PO SCH (20:45)
[2021-01-18] MEDS: haloperidoL 5 MG TAB PO SCH (20:45)
[2021-01-18] MEDS: ACETAMINOPHEN TAB 650MG DOSE (2X325MG) PO PRN (20:56)
[2021-01-19] MEDS: LEVOTHYROXINE 112MCG TABLET (0.112MG) PO SCH (05:27)
[2021-01-19 06:00] VITALS: BP 125/65
[2021-01-19] MEDS: DIVALPROEX 500 MG TAB PO SCH ×2 (08:48→16:33)
[2021-01-19] MEDS: PANTOPRAZOLE 40MG TAB (PROTONIX) PO SCH (08:49)
[2021-01-19] MEDS: NYSTATIN 100,000 UNITS/GM TOPICAL PWD 15 GM TOP SCH ×2 (08:49→19:57)
[2021-01-19] MEDS: amLODIPine 5 MG TAB PO SCH (08:49)
[2021-01-19] MEDS: levETIRAcetam 250MG TABLET (KEPPRA) PO SCH ×2 (08:49→19:57)
[2021-01-19] MEDS: BENZTROPINE 1 MG TAB PO SCH ×2 (08:49→19:57)
[2021-01-19] MEDS: risperiDONE LONG-ACTING 37.5 MG/2 ML INJ (J2794 PER 0.5MG) IM SCH (08:56)
[2021-01-19] MEDS: haloperidoL 5 MG TAB PO SCH (19:57)
[2021-01-19] MEDS: QUEtiapine FUMARATE 200 MG TAB PO SCH (19:57)
[2021-01-20 06:00] VITALS: BP 124/65
[2021-01-20] MEDS: LEVOTHYROXINE 112MCG TABLET (0.112MG) PO SCH (06:14)
[2021-01-20] MEDS: NYSTATIN 100,000 UNITS/GM TOPICAL PWD 15 GM TOP SCH ×2 (09:00→21:00)
[2021-01-20] MEDS: amLODIPine 5 MG TAB PO SCH (10:03)
[2021-01-20] MEDS: BENZTROPINE 1 MG TAB PO SCH ×2 (10:03→21:46)
[2021-01-20] MEDS: DIVALPROEX 500 MG TAB PO SCH ×2 (10:03→16:13)
[2021-01-20] MEDS: levETIRAcetam 250MG TABLET (KEPPRA) PO SCH ×2 (10:03→21:46)
[2021-01-20] MEDS: PANTOPRAZOLE 40MG TAB (PROTONIX) PO SCH (10:03)
[2021-01-20] MEDS: QUEtiapine FUMARATE 200 MG TAB PO SCH (21:46)
[2021-01-20] MEDS: haloperidoL 5 MG TAB PO SCH (21:46)
[2021-01-21] MEDS: LEVOTHYROXINE 112MCG TABLET (0.112MG) PO SCH (05:54)
[2021-01-21 06:00] VITALS: BP 122/64
[2021-01-21] MEDS: NYSTATIN 100,000 UNITS/GM TOPICAL PWD 15 GM TOP SCH (09:00)
[2021-01-21] MEDS: levETIRAcetam 250MG TABLET (KEPPRA) PO SCH ×2 (10:31→21:45)
[2021-01-21] MEDS: BENZTROPINE 1 MG TAB PO SCH ×2 (10:31→21:46)
[2021-01-21] MEDS: PANTOPRAZOLE 40MG TAB (PROTONIX) PO SCH (10:31)
[2021-01-21] MEDS: amLODIPine 5 MG TAB PO SCH (10:32)
[2021-01-21] MEDS: DIVALPROEX 500 MG TAB PO SCH ×2 (11:53→16:31)
[2021-01-21] MEDS: QUEtiapine FUMARATE 200 MG TAB PO SCH (21:45)
[2021-01-21] MEDS: haloperidoL 5 MG TAB PO SCH (21:46)
[2021-01-22] MEDS: NYSTATIN 100,000 UNITS/GM TOPICAL PWD 15 GM TOP SCH ×3 (01:58→20:24)
[2021-01-22 06:00] VITALS: BP 132/72
[2021-01-22] MEDS: LEVOTHYROXINE 112MCG TABLET (0.112MG) PO SCH (06:44)
[2021-01-22] MEDS: amLODIPine 5 MG TAB PO SCH (10:03)
[2021-01-22] MEDS: BENZTROPINE 1 MG TAB PO SCH ×2 (10:03→20:23)
[2021-01-22] MEDS: DIVALPROEX 500 MG TAB PO SCH ×2 (10:03→16:02)
[2021-01-22] MEDS: levETIRAcetam 250MG TABLET (KEPPRA) PO SCH ×2 (10:04→20:23)
[2021-01-22] MEDS: PANTOPRAZOLE 40MG TAB (PROTONIX) PO SCH (10:04)
[2021-01-22] MEDS: QUEtiapine FUMARATE 200 MG TAB PO SCH (20:22)
[2021-01-22] MEDS: haloperidoL 5 MG TAB PO SCH (20:23)
[2021-01-23] MEDS: LEVOTHYROXINE 112MCG TABLET (0.112MG) PO SCH (05:43)
[2021-01-23 06:00] VITALS: BP 115/55
[2021-01-23] MEDS: levETIRAcetam 250MG TABLET (KEPPRA) PO SCH ×2 (08:48→20:24)
[2021-01-23] MEDS: DIVALPROEX 500 MG TAB PO SCH ×2 (08:49→16:34)
[2021-01-23] MEDS: PANTOPRAZOLE 40MG TAB (PROTONIX) PO SCH (08:49)
[2021-01-23] MEDS: amLODIPine 5 MG TAB PO SCH (08:49)
[2021-01-23] MEDS: NYSTATIN 100,000 UNITS/GM TOPICAL PWD 15 GM TOP SCH ×2 (08:49→20:24)
[2021-01-23] MEDS: BENZTROPINE 1 MG TAB PO SCH ×2 (08:49→20:24)
--- NOTE | 2021-01-23 10:57 | IPN ---
PROGRESS NOTE DATE: 01/23/2021 SUBJECTIVE: Janice is [facility] level of care. She is stable. Per nursing staff, she gets up, ambulates with a walker, gets back and forth to the bathroom. OBJECTIVE: VITAL SIGNS: Afebrile. Vital signs are stable. GENERAL APPEARANCE: She is drowsy today when I saw her. LUNGS: Clear. HEART: Regular rhythm. ABDOMEN: Soft, nontender. IMPRESSION: Patient stable on [facility] level of care. I ordered some labs for tomorrow as it has been a week. We are waiting for a bed to open up for her somewhere.
[2021-01-23] MEDS: QUEtiapine FUMARATE 200 MG TAB PO SCH (20:24)
[2021-01-23] MEDS: haloperidoL 5 MG TAB PO SCH (20:24)
[2021-01-24] MEDS: LEVOTHYROXINE 112MCG TABLET (0.112MG) PO SCH (05:34)
[2021-01-24 05:55] LABS: HEMATOCRIT 33.5 % (36.0-47.0); HEMOGLOBIN 10.9 g/dl (12.0-15.5); MEAN CORPUSCULAR HEMOGLOBIN 29.1 pg (27.0-33.0); MEAN CORPUSCULAR HGB CONC 32.5 g/dl (32.0-36.5); MEAN CORPUSCULAR VOLUME 89.6 fl (80.0-96.0); PLATELET COUNT, AUTOMATED 170 10^3/uL (150-450); RED BLOOD COUNT 3.74 10^6/uL (4.00-5.40); WHITE BLOOD COUNT 4.7 10^3/uL (4.0-10.0)
[2021-01-24 06:00] VITALS: BP 122/67
[2021-01-24 06:28] LABS: CALCIUM LEVEL 8.7 MG/DL (8.8-10.2); CREATININE FOR GFR 1.05 MG/DL (0.55-1.30); GLOMERULAR FILTRATION RATE 55.3 (>45); POTASSIUM SERUM 4.3 MEQ/L (3.5-5.1)
[2021-01-24] MEDS: NYSTATIN 100,000 UNITS/GM TOPICAL PWD 15 GM TOP SCH ×2 (10:00→21:12)
[2021-01-24] MEDS: levETIRAcetam 250MG TABLET (KEPPRA) PO SCH ×2 (10:00→21:12)
[2021-01-24] MEDS: DIVALPROEX 500 MG TAB PO SCH ×2 (10:00→16:10)
[2021-01-24] MEDS: PANTOPRAZOLE 40MG TAB (PROTONIX) PO SCH (10:01)
[2021-01-24] MEDS: BENZTROPINE 1 MG TAB PO SCH ×2 (10:01→21:12)
[2021-01-24] MEDS: amLODIPine 5 MG TAB PO SCH (10:01)
[2021-01-24] MEDS: haloperidoL 5 MG TAB PO SCH (21:12)
[2021-01-24] MEDS: QUEtiapine FUMARATE 200 MG TAB PO SCH (21:12)
[2021-01-25 06:00] VITALS: BP 127/65
[2021-01-25] MEDS: LEVOTHYROXINE 112MCG TABLET (0.112MG) PO SCH ×2 (06:00→09:46)
[2021-01-25] MEDS: levETIRAcetam 250MG TABLET (KEPPRA) PO SCH ×2 (09:46→21:15)
[2021-01-25] MEDS: PANTOPRAZOLE 40MG TAB (PROTONIX) PO SCH (09:46)
[2021-01-25] MEDS: amLODIPine 5 MG TAB PO SCH (09:47)
[2021-01-25] MEDS: NYSTATIN 100,000 UNITS/GM TOPICAL PWD 15 GM TOP SCH ×2 (09:47→21:15)
[2021-01-25] MEDS: BENZTROPINE 1 MG TAB PO SCH ×2 (09:47→21:15)
[2021-01-25] MEDS: DIVALPROEX 500 MG TAB PO SCH ×2 (10:37→17:32)
[2021-01-25] MEDS ORDERED: TUBERCULIN PPD 5 UNITS/0.1 ML ID ONE (11:00)
[2021-01-25] MEDS: haloperidoL 5 MG TAB PO SCH (21:00)
[2021-01-25] MEDS: QUEtiapine FUMARATE 200 MG TAB PO SCH (21:15)
[2021-01-26 06:00] VITALS: BP 103/51
[2021-01-26] MEDS: PANTOPRAZOLE 40MG TAB (PROTONIX) PO SCH (08:46)
[2021-01-26] MEDS: DIVALPROEX 500 MG TAB PO SCH ×2 (08:46→16:58)
[2021-01-26] MEDS: BENZTROPINE 1 MG TAB PO SCH ×2 (08:46→20:25)
[2021-01-26] MEDS: LEVOTHYROXINE 112MCG TABLET (0.112MG) PO SCH (08:46)
[2021-01-26] MEDS: NYSTATIN 100,000 UNITS/GM TOPICAL PWD 15 GM TOP SCH ×2 (08:47→20:25)
[2021-01-26] MEDS: amLODIPine 5 MG TAB PO SCH (08:47)
[2021-01-26] MEDS: levETIRAcetam 250MG TABLET (KEPPRA) PO SCH ×2 (08:47→20:25)
[2021-01-26] MEDS: haloperidoL 5 MG TAB PO SCH (20:25)
[2021-01-26] MEDS: QUEtiapine FUMARATE 200 MG TAB PO SCH (20:25)
[2021-01-27 05:30] VITALS: BP 112/65
[2021-01-27] MEDS: LEVOTHYROXINE 112MCG TABLET (0.112MG) PO SCH (05:50)
[2021-01-27] MEDS: DIVALPROEX 500 MG TAB PO SCH ×2 (08:46→16:56)
[2021-01-27] MEDS: PANTOPRAZOLE 40MG TAB (PROTONIX) PO SCH (08:46)
[2021-01-27] MEDS: BENZTROPINE 1 MG TAB PO SCH ×2 (08:46→20:17)
[2021-01-27] MEDS: levETIRAcetam 250MG TABLET (KEPPRA) PO SCH ×2 (08:46→20:16)
[2021-01-27] MEDS: amLODIPine 5 MG TAB PO SCH (08:46)
[2021-01-27] MEDS: NYSTATIN 100,000 UNITS/GM TOPICAL PWD 15 GM TOP SCH ×2 (08:47→20:17)
[2021-01-27] MEDS ORDERED: PPD DOCUMENTATION ENTRY MISC XX ONE (11:00)
[2021-01-27] MEDS: QUEtiapine FUMARATE 200 MG TAB PO SCH (20:17)
[2021-01-27] MEDS: ACETAMINOPHEN TAB 650MG DOSE (2X325MG) PO PRN (20:17)
[2021-01-27] MEDS: haloperidoL 5 MG TAB PO SCH (20:17)
[2021-01-28] MEDS: LEVOTHYROXINE 112MCG TABLET (0.112MG) PO SCH (05:55)
[2021-01-28 06:00] VITALS: BP 125/64
[2021-01-28] MEDS: amLODIPine 5 MG TAB PO SCH (09:00)
[2021-01-28] MEDS: DIVALPROEX 500 MG TAB PO SCH ×2 (09:08→16:35)
[2021-01-28] MEDS: BENZTROPINE 1 MG TAB PO SCH ×2 (09:08→20:04)
[2021-01-28] MEDS: PANTOPRAZOLE 40MG TAB (PROTONIX) PO SCH (09:08)
[2021-01-28] MEDS: levETIRAcetam 250MG TABLET (KEPPRA) PO SCH ×2 (09:08→20:04)
[2021-01-28] MEDS: NYSTATIN 100,000 UNITS/GM TOPICAL PWD 15 GM TOP SCH ×2 (09:09→20:05)
[2021-01-28] MEDS: ACETAMINOPHEN TAB 650MG DOSE (2X325MG) PO PRN ×2 (09:16→20:05)
[2021-01-28] MEDS: haloperidoL 5 MG TAB PO SCH (20:04)
[2021-01-28] MEDS: QUEtiapine FUMARATE 200 MG TAB PO SCH (20:04)
[2021-01-29] MEDS: LEVOTHYROXINE 112MCG TABLET (0.112MG) PO SCH (05:58)
[2021-01-29 06:00] VITALS: BP 106/57
[2021-01-29] MEDS: amLODIPine 5 MG TAB PO SCH (09:00)
[2021-01-29] MEDS: DIVALPROEX 500 MG TAB PO SCH ×2 (10:04→15:19)
[2021-01-29] MEDS: BENZTROPINE 1 MG TAB PO SCH ×2 (10:04→21:10)
[2021-01-29] MEDS: levETIRAcetam 250MG TABLET (KEPPRA) PO SCH ×2 (10:05→21:09)
[2021-01-29] MEDS: NYSTATIN 100,000 UNITS/GM TOPICAL PWD 15 GM TOP SCH ×2 (10:05→21:10)
[2021-01-29] MEDS: PANTOPRAZOLE 40MG TAB (PROTONIX) PO SCH (10:05)
[2021-01-29] MEDS: haloperidoL 5 MG TAB PO SCH (21:10)
[2021-01-29] MEDS: QUEtiapine FUMARATE 200 MG TAB PO SCH (21:10)
[2021-01-30] MEDS: LEVOTHYROXINE 112MCG TABLET (0.112MG) PO SCH (05:41)
[2021-01-30 06:00] VITALS: BP 123/64
[2021-01-30] MEDS: BENZTROPINE 1 MG TAB PO SCH ×2 (08:06→19:57)
[2021-01-30] MEDS: levETIRAcetam 250MG TABLET (KEPPRA) PO SCH ×2 (08:06→19:57)
[2021-01-30] MEDS: DIVALPROEX 500 MG TAB PO SCH ×2 (08:06→15:58)
[2021-01-30] MEDS: PANTOPRAZOLE 40MG TAB (PROTONIX) PO SCH (08:06)
[2021-01-30] MEDS: amLODIPine 5 MG TAB PO SCH (08:07)
[2021-01-30] MEDS: NYSTATIN 100,000 UNITS/GM TOPICAL PWD 15 GM TOP SCH ×2 (08:08→19:58)
--- NOTE | 2021-01-30 13:11 | IPNPDOC ---
Text Note Date of Service The patient was seen on 01/30/21. NOTE Subjective: Patient is 70-year-old female who initially was in the inpatient mental health unit who was then discharged but was unable to go home due to a fall causing wrist fracture and inability to care for self. Patient was admitted to the hospital under [facility] level of care. Patient is able to walk with a walker and get back and forth to the bathroom. Patient is otherwise doing well. Physical exam: Vitals: See below General: Alert and oriented female who was sitting up in bed when I walked in. Patient did not appear to be in any acute distress. HEENT: Normocephalic, atraumatic, moist mucous membranes. Neck: No lymphadenopathy or thyromegaly Cardiac: Regular rate and rhythm, no murmurs, normal S1, normal S2 Pulm: Clear to auscultation bilaterally. No wheezes, rhonchi, rales Abd: Nondistended, nontender to palpation, normal bowel sounds Ext: No edema bilateral lower extremities, right wrist has splint on and patient is neurovascularly intact distal to the splint. Labs: See below Imaging: No new imaging has been performed. Assessment/plan: 70-year-old female who presented to the floor from the inpatient mental health unit for discharge planning 1. Hypothyroidism. Continue her treatment. 2. Seizure disorder. Continue Keppra and Depakote. 3. Various psychotic disorders. Continue her current antipsychotic regimen. 4. Hypertension. Continue current dose of amlodipine. 5. Right wrist fracture. Patient fractured her wrist and this was initially splinted on December 13, [address] Juliocesar Summers. Patient was reevaluated on 01/10/[address] Summers recommended keeping the splint on for another 4 weeks. Splint was a soft splint and had slipped up. Mo bandage was removed and the splint was slipped down further on the hand and it was rewrapped. Patient was neurovascularly intact distal to the splint after splint was placed. DVT Prophylaxis: Teds and ambulation Disposition: Patient was going to possibly go to assisted living however, she did not participate with the interview last week. Patient is unable to care for self at home so we will continue to look for a place for the patient to discharge. We will contact [facility] tomorrow. VS,Alis, I+O VS, Alis, I+O Vital Signs Date Time Temp Pulse Resp B/P (MAP) Pulse Ox O2 Delivery O2 Flow Rate FiO2 01/30/21 08:07 119/64 01/30/21 06:00 98.0 87 16 94 Room Air I&O- Last 24 Hours up to 6 AM 01/30/21 06:00 Intake Total 1440 ml Balance 1440 ml GERBER SNYDER DO Jan 30, 2021 13:11
[2021-01-30] MEDS: haloperidoL 5 MG TAB PO SCH (19:57)
[2021-01-30] MEDS: QUEtiapine FUMARATE 200 MG TAB PO SCH (19:57)
[2021-01-31] MEDS: LEVOTHYROXINE 112MCG TABLET (0.112MG) PO SCH (05:48)
[2021-01-31 06:00] VITALS: BP 125/67
[2021-01-31] MEDS: DIVALPROEX 500 MG TAB PO SCH ×2 (08:57→16:08)
[2021-01-31] MEDS: BENZTROPINE 1 MG TAB PO SCH ×2 (08:58→20:08)
[2021-01-31] MEDS: levETIRAcetam 250MG TABLET (KEPPRA) PO SCH ×2 (08:58→20:09)
[2021-01-31] MEDS: NYSTATIN 100,000 UNITS/GM TOPICAL PWD 15 GM TOP SCH ×2 (08:59→20:09)
[2021-01-31] MEDS: PANTOPRAZOLE 40MG TAB (PROTONIX) PO SCH (08:59)
[2021-01-31] MEDS: amLODIPine 5 MG TAB PO SCH (09:00)
[2021-01-31] MEDS: haloperidoL 5 MG TAB PO SCH (20:09)
[2021-01-31] MEDS: QUEtiapine FUMARATE 200 MG TAB PO SCH (20:09)
[2021-02-01 06:00] VITALS: BP 136/64
[2021-02-01] MEDS: LEVOTHYROXINE 112MCG TABLET (0.112MG) PO SCH (06:18)
[2021-02-01] MEDS: levETIRAcetam 250MG TABLET (KEPPRA) PO SCH ×2 (10:12→20:21)
[2021-02-01] MEDS: BENZTROPINE 1 MG TAB PO SCH ×2 (10:12→20:21)
[2021-02-01] MEDS: PANTOPRAZOLE 40MG TAB (PROTONIX) PO SCH (10:12)
[2021-02-01] MEDS: amLODIPine 5 MG TAB PO SCH (10:13)
[2021-02-01] MEDS: NYSTATIN 100,000 UNITS/GM TOPICAL PWD 15 GM TOP SCH ×2 (10:14→20:21)
[2021-02-01 10:15] VITALS: BP 133/65
[2021-02-01] MEDS: DIVALPROEX 500 MG TAB PO SCH ×2 (10:17→16:08)
[2021-02-01] MEDS: haloperidoL 5 MG TAB PO SCH (20:21)
[2021-02-01] MEDS: QUEtiapine FUMARATE 200 MG TAB PO SCH (20:21)
[2021-02-02] MEDS: LEVOTHYROXINE 112MCG TABLET (0.112MG) PO SCH (05:58)
[2021-02-02 06:00] VITALS: BP 118/58
[2021-02-02] MEDS: amLODIPine 5 MG TAB PO SCH (09:00)
[2021-02-02] MEDS: BENZTROPINE 1 MG TAB PO SCH ×2 (09:14→20:42)
[2021-02-02] MEDS: PANTOPRAZOLE 40MG TAB (PROTONIX) PO SCH (09:15)
[2021-02-02] MEDS: DIVALPROEX 500 MG TAB PO SCH ×2 (09:15→16:03)
[2021-02-02] MEDS: risperiDONE LONG-ACTING 37.5 MG/2 ML INJ (J2794 PER 0.5MG) IM SCH (09:16)
[2021-02-02] MEDS: NYSTATIN 100,000 UNITS/GM TOPICAL PWD 15 GM TOP SCH ×2 (09:16→20:42)
[2021-02-02] MEDS: levETIRAcetam 250MG TABLET (KEPPRA) PO SCH ×2 (09:17→20:42)
[2021-02-02] MEDS: QUEtiapine FUMARATE 200 MG TAB PO SCH (20:42)
[2021-02-02] MEDS: haloperidoL 5 MG TAB PO SCH (20:42)
[2021-02-03] MEDS: LEVOTHYROXINE 112MCG TABLET (0.112MG) PO SCH (05:50)
[2021-02-03 06:00] VITALS: BP 124/57
[2021-02-03] MEDS: amLODIPine 5 MG TAB PO SCH (09:00)
[2021-02-03] MEDS: BENZTROPINE 1 MG TAB PO SCH ×2 (09:56→21:05)
[2021-02-03] MEDS: NYSTATIN 100,000 UNITS/GM TOPICAL PWD 15 GM TOP SCH ×2 (09:56→21:05)
[2021-02-03] MEDS: DIVALPROEX 500 MG TAB PO SCH ×2 (09:56→18:09)
[2021-02-03] MEDS: levETIRAcetam 250MG TABLET (KEPPRA) PO SCH ×2 (09:56→20:57)
[2021-02-03] MEDS: PANTOPRAZOLE 40MG TAB (PROTONIX) PO SCH (09:56)
[2021-02-03] MEDS: haloperidoL 5 MG TAB PO SCH (20:57)
[2021-02-03] MEDS: QUEtiapine FUMARATE 200 MG TAB PO SCH (20:58)
[2021-02-04 06:00] VITALS: BP 115/57
[2021-02-04] MEDS: LEVOTHYROXINE 112MCG TABLET (0.112MG) PO SCH (06:32)
[2021-02-04] MEDS: amLODIPine 5 MG TAB PO SCH (09:00)
[2021-02-04] MEDS: PANTOPRAZOLE 40MG TAB (PROTONIX) PO SCH (11:04)
[2021-02-04] MEDS: levETIRAcetam 250MG TABLET (KEPPRA) PO SCH ×2 (11:04→21:24)
[2021-02-04] MEDS: DIVALPROEX 500 MG TAB PO SCH ×2 (11:04→17:39)
[2021-02-04] MEDS: BENZTROPINE 1 MG TAB PO SCH ×2 (11:04→21:24)
[2021-02-04] MEDS: NYSTATIN 100,000 UNITS/GM TOPICAL PWD 15 GM TOP SCH ×2 (11:05→21:24)
[2021-02-04] MEDS: QUEtiapine FUMARATE 200 MG TAB PO SCH (21:24)
[2021-02-04] MEDS: haloperidoL 5 MG TAB PO SCH (21:24)
[2021-02-05 06:00] VITALS: BP 111/59
[2021-02-05] MEDS: LEVOTHYROXINE 112MCG TABLET (0.112MG) PO SCH (06:11)
[2021-02-05] MEDS: amLODIPine 5 MG TAB PO SCH (09:00)
[2021-02-05] MEDS: PANTOPRAZOLE 40MG TAB (PROTONIX) PO SCH (09:28)
[2021-02-05] MEDS: BENZTROPINE 1 MG TAB PO SCH ×2 (09:28→22:16)
[2021-02-05] MEDS: DIVALPROEX 500 MG TAB PO SCH ×2 (09:28→17:33)
[2021-02-05] MEDS: levETIRAcetam 250MG TABLET (KEPPRA) PO SCH ×2 (09:28→22:16)
[2021-02-05] MEDS: NYSTATIN 100,000 UNITS/GM TOPICAL PWD 15 GM TOP SCH ×2 (09:30→22:16)
[2021-02-05] MEDS: haloperidoL 5 MG TAB PO SCH (22:16)
[2021-02-05] MEDS: QUEtiapine FUMARATE 200 MG TAB PO SCH (22:16)
[2021-02-06 06:00] VITALS: BP 118/51
[2021-02-06] MEDS: LEVOTHYROXINE 112MCG TABLET (0.112MG) PO SCH (06:10)
[2021-02-06] MEDS: DIVALPROEX 500 MG TAB PO SCH ×2 (08:28→14:57)
[2021-02-06] MEDS: levETIRAcetam 250MG TABLET (KEPPRA) PO SCH ×2 (08:28→21:07)
[2021-02-06] MEDS: PANTOPRAZOLE 40MG TAB (PROTONIX) PO SCH (08:28)
[2021-02-06] MEDS: BENZTROPINE 1 MG TAB PO SCH ×2 (08:28→21:07)
[2021-02-06] MEDS: amLODIPine 5 MG TAB PO SCH (08:29)
[2021-02-06] MEDS: NYSTATIN 100,000 UNITS/GM TOPICAL PWD 15 GM TOP SCH ×2 (08:29→21:07)
[2021-02-06] MEDS: QUEtiapine FUMARATE 200 MG TAB PO SCH (21:07)
[2021-02-06] MEDS: haloperidoL 5 MG TAB PO SCH (21:07)
[2021-02-06] MEDS: ACETAMINOPHEN TAB 650MG DOSE (2X325MG) PO PRN (21:15)
[2021-02-07] MEDS: LEVOTHYROXINE 112MCG TABLET (0.112MG) PO SCH (05:43)
[2021-02-07 06:00] VITALS: BP 147/70
[2021-02-07 06:34] LABS: BASO # 0.1 10^3/uL (0.0-0.2); BASO % 1.2 % (0.0-1.0); EOS # 0.1 10^3/uL (0.0-0.5); EOS % 2.8 % (0.0-3.0); HEMATOCRIT 33.9 % (36.0-47.0); HEMOGLOBIN 11.1 g/dl (12.0-15.5); LYMPH # 1.6 10^3/uL (1.5-5.0); LYMPH % 37.1 % (24.0-44.0); MEAN CORPUSCULAR HEMOGLOBIN 29.5 pg (27.0-33.0); MEAN CORPUSCULAR HGB CONC 32.7 g/dl (32.0-36.5); MEAN CORPUSCULAR VOLUME 90.2 fl (80.0-96.0); MONO # 0.7 10^3/uL (0.0-0.8); MONO % 15.7 % (2.0-8.0); NEUTROPHILS # 1.8 10^3/uL (1.5-8.5); NEUTROPHILS % 42.7 % (36.0-66.0); PLATELET COUNT, AUTOMATED 192 10^3/uL (150-450); RED BLOOD COUNT 3.76 10^6/uL (4.00-5.40); WHITE BLOOD COUNT 4.3 10^3/uL (4.0-10.0)
[2021-02-07 06:59] LABS: ALBUMIN 2.6 GM/DL (3.2-5.2); BILIRUBIN,TOTAL 0.1 MG/DL (0.2-1.0); CALCIUM LEVEL 8.4 MG/DL (8.8-10.2); CREATININE FOR GFR 1.1 MG/DL (0.55-1.30); GLOMERULAR FILTRATION RATE 52.4 (>45); MAGNESIUM LEVEL 2.1 MG/DL (1.8-2.4); POTASSIUM SERUM 4.5 MEQ/L (3.5-5.1); TOTAL PROTEIN 6.2 GM/DL (6.4-8.2)
[2021-02-07] MEDS: BENZTROPINE 1 MG TAB PO SCH ×2 (08:18→22:37)
[2021-02-07] MEDS: levETIRAcetam 250MG TABLET (KEPPRA) PO SCH ×2 (08:18→22:36)
[2021-02-07] MEDS: DIVALPROEX 500 MG TAB PO SCH ×2 (08:18→15:23)
[2021-02-07] MEDS: PANTOPRAZOLE 40MG TAB (PROTONIX) PO SCH (08:18)
[2021-02-07] MEDS: amLODIPine 5 MG TAB PO SCH (08:19)
[2021-02-07] MEDS: NYSTATIN 100,000 UNITS/GM TOPICAL PWD 15 GM TOP SCH ×2 (08:20→21:00)
[2021-02-07 14:00] VITALS: BP 123/76
[2021-02-07] MEDS: haloperidoL 5 MG TAB PO SCH (22:36)
[2021-02-07] MEDS: QUEtiapine FUMARATE 200 MG TAB PO SCH (22:36)
[2021-02-08] MEDS: LEVOTHYROXINE 112MCG TABLET (0.112MG) PO SCH (05:57)
[2021-02-08 06:00] VITALS: BP 119/62
[2021-02-08] MEDS: amLODIPine 5 MG TAB PO SCH (07:55)
[2021-02-08] MEDS: PANTOPRAZOLE 40MG TAB (PROTONIX) PO SCH (07:55)
[2021-02-08] MEDS: levETIRAcetam 250MG TABLET (KEPPRA) PO SCH ×2 (07:55→20:58)
[2021-02-08] MEDS: BENZTROPINE 1 MG TAB PO SCH ×2 (07:55→20:58)
[2021-02-08] MEDS: DIVALPROEX 500 MG TAB PO SCH ×2 (07:55→15:37)
[2021-02-08] MEDS: NYSTATIN 100,000 UNITS/GM TOPICAL PWD 15 GM TOP SCH ×2 (07:56→20:57)
[2021-02-08] MEDS: QUEtiapine FUMARATE 200 MG TAB PO SCH (20:57)
[2021-02-08] MEDS: haloperidoL 5 MG TAB PO SCH (20:58)
[2021-02-09] MEDS: LEVOTHYROXINE 112MCG TABLET (0.112MG) PO SCH (05:32)
[2021-02-09 06:00] VITALS: BP 156/68
[2021-02-09] MEDS: DIVALPROEX 500 MG TAB PO SCH ×2 (08:29→15:10)
[2021-02-09] MEDS: amLODIPine 5 MG TAB PO SCH (08:29)
[2021-02-09] MEDS: PANTOPRAZOLE 40MG TAB (PROTONIX) PO SCH (08:30)
[2021-02-09] MEDS: levETIRAcetam 250MG TABLET (KEPPRA) PO SCH ×2 (08:30→20:29)
[2021-02-09] MEDS: BENZTROPINE 1 MG TAB PO SCH ×2 (08:38→20:29)
[2021-02-09] MEDS: NYSTATIN 100,000 UNITS/GM TOPICAL PWD 15 GM TOP SCH ×2 (08:39→20:30)
--- NOTE | 2021-02-09 12:52 | IPNPDOC ---
Text Note Date of Service The patient was seen on 02/09/21. NOTE Subjective: No any acute events overnight. No fever or chills Objective: GENERAL APPEARANCE: NAD HEENT: no scleral icterus, no JVD, EOMI CARDIOVASCULAR: S1S2 LUNGS: CTA ABDOMEN: soft & not tender w palpation MUSCULOSKELETAL: no cyanosis, no swelling, right wrist has splint INTEGUMENT: no generalized pallor NEUROLOGICAL: cranial nerve function from 2-12 intact, follows commands, speech not dysarthric Assessment/plan: 70-year-old female who presented to the floor from the inpatient [facility] for discharge planning Hypothyroidism. Continue her treatment. Seizure disorder Continue Keppra and Depakote. Various psychotic disorders Continue her current antipsychotic regimen. Hypertension Continue current dose of amlodipine Right wrist fracture. Patient fractured her wrist and this was initially splinted on December 13, [address] Juliocesar Summers. Patient was reevaluated on 01/10/[address] Summers recommended keeping the splint on for another 4 weeks Disposition Patient is going to assisted leaving facility VS,Alis, I+O VSAlis, I+O Vital Signs Date Time Temp Pulse Resp B/P (MAP) Pulse Ox O2 Delivery O2 Flow Rate FiO2 02/09/21 08:29 68 139/70 02/09/21 06:00 96.8 16 96 Room Air I&O- Last 24 Hours up to 6 AM 02/09/21 06:00 Intake Total 1280 ml Balance 1280 ml BELLA CARDONA DO Feb 09, 2021 12:51
[2021-02-09] MEDS: QUEtiapine FUMARATE 200 MG TAB PO SCH (20:30)
[2021-02-09] MEDS: haloperidoL 5 MG TAB PO SCH (20:30)
[2021-02-10] MEDS: LEVOTHYROXINE 112MCG TABLET (0.112MG) PO SCH (05:56)
[2021-02-10 06:10] VITALS: BP 126/63
[2021-02-10] MEDS: PANTOPRAZOLE 40MG TAB (PROTONIX) PO SCH (08:11)
[2021-02-10] MEDS: amLODIPine 5 MG TAB PO SCH (08:12)
[2021-02-10] MEDS: BENZTROPINE 1 MG TAB PO SCH ×2 (08:12→21:20)
[2021-02-10] MEDS: DIVALPROEX 500 MG TAB PO SCH ×2 (08:12→17:15)
[2021-02-10] MEDS: levETIRAcetam 250MG TABLET (KEPPRA) PO SCH ×2 (08:12→21:20)
[2021-02-10] MEDS: NYSTATIN 100,000 UNITS/GM TOPICAL PWD 15 GM TOP SCH ×2 (08:13→21:20)
[2021-02-10] MEDS: QUEtiapine FUMARATE 200 MG TAB PO SCH (21:20)
[2021-02-10] MEDS: haloperidoL 5 MG TAB PO SCH (21:20)
[2021-02-11 06:00] VITALS: BP 121/57
[2021-02-11] MEDS: LEVOTHYROXINE 112MCG TABLET (0.112MG) PO SCH (06:26)
[2021-02-11] MEDS: PANTOPRAZOLE 40MG TAB (PROTONIX) PO SCH (10:19)
[2021-02-11] MEDS: levETIRAcetam 250MG TABLET (KEPPRA) PO SCH ×2 (10:19→21:51)
[2021-02-11] MEDS: NYSTATIN 100,000 UNITS/GM TOPICAL PWD 15 GM TOP SCH ×2 (10:19→21:51)
[2021-02-11] MEDS: BENZTROPINE 1 MG TAB PO SCH ×2 (10:19→21:51)
[2021-02-11] MEDS: amLODIPine 5 MG TAB PO SCH (10:20)
[2021-02-11] MEDS: DIVALPROEX 500 MG TAB PO SCH ×3 (10:22→21:51)
[2021-02-11] MEDS: haloperidoL 5 MG TAB PO SCH (21:51)
[2021-02-11] MEDS: QUEtiapine FUMARATE 200 MG TAB PO SCH (21:51)
[2021-02-12] MEDS: LEVOTHYROXINE 112MCG TABLET (0.112MG) PO SCH (05:39)
[2021-02-12 06:00] VITALS: BP 142/76
[2021-02-12] MEDS: BENZTROPINE 1 MG TAB PO SCH ×2 (08:32→20:48)
[2021-02-12] MEDS: levETIRAcetam 250MG TABLET (KEPPRA) PO SCH ×2 (08:33→20:48)
[2021-02-12] MEDS: amLODIPine 5 MG TAB PO SCH (08:34)
[2021-02-12] MEDS: PANTOPRAZOLE 40MG TAB (PROTONIX) PO SCH (08:34)
[2021-02-12] MEDS: NYSTATIN 100,000 UNITS/GM TOPICAL PWD 15 GM TOP SCH ×2 (08:36→20:49)
[2021-02-12] MEDS: DIVALPROEX 500 MG TAB PO SCH (16:27)
[2021-02-12] MEDS: QUEtiapine FUMARATE 200 MG TAB PO SCH (20:48)
[2021-02-12] MEDS: haloperidoL 5 MG TAB PO SCH (20:48)
[2021-02-13 06:00] VITALS: BP 119/93
[2021-02-13] MEDS: LEVOTHYROXINE 112MCG TABLET (0.112MG) PO SCH (06:11)
[2021-02-13] MEDS: DIVALPROEX 500 MG TAB PO SCH ×2 (08:00→16:35)
[2021-02-13] MEDS: amLODIPine 5 MG TAB PO SCH (09:00)
[2021-02-13] MEDS: PANTOPRAZOLE 40MG TAB (PROTONIX) PO SCH (09:33)
[2021-02-13] MEDS: levETIRAcetam 250MG TABLET (KEPPRA) PO SCH ×2 (09:33→20:42)
[2021-02-13] MEDS: BENZTROPINE 1 MG TAB PO SCH ×2 (09:33→20:42)
[2021-02-13] MEDS: NYSTATIN 100,000 UNITS/GM TOPICAL PWD 15 GM TOP SCH ×2 (09:34→20:42)
--- NOTE | 2021-02-13 10:30 | REP ---
INDICATION: wrist fracture. COMPARISON: 01/10/2021 TECHNIQUE: Four views FINDINGS: The previous as described distal radial and ulnar fractures are. The scaphoid lucency is again identified status quo. Again noted IMPRESSION: No change. Consider diagnostic CT. Prior CT 12/13/2020 was nondiagnostic due to artifact. <Electronically signed by Guillermo Villarreal > 02/13/21 [id number]
--- NOTE | 2021-02-13 14:52 | IPNPDOC ---
Text Note Date of Service The patient was seen on 02/13/21. NOTE Subjective: Patient is a 70-year-old female is initially in the inpatient mental health unit who was discharged was unable to go home due to inability to care for self. Patient fell on 12/13/2020 and fractured her right wrist. Patient was reevaluated in December and the recommendations were to keep the patient in the splint for another 4 weeks. Saw the patient today and took the splint off and have the patient get an x-ray and then a CT scan. Patient says the wrist is slightly stiff and is painful. Patient also needed a CODE STATUS added to the computer as the patient may be going to an assisted living facility on and needed a CODE STATUS. MOLST form was filled out with the patient. Patient is otherwise feeling well does not have any complaints today. Review of systems: General: Patient denies fevers HEENT: Patient denies headaches Cardiovascular: Patient denies chest pain Respiratory: Patient denies shortness of breath, cough GI: Patient denies abdominal pain, nausea, vomiting, diarrhea : Patient denies increased frequency or pain with urination Extremities: Patient reports pain and stiffness in the right wrist Neurological: Patient denies numbness or tingling in legs Physical exam: Vitals: See below General: Alert and oriented female patient who was sitting up in bed when I walked in. Patient not appear to be in any acute distress. HEENT: Normocephalic, atraumatic, moist mucous membranes. Neck: No lymphadenopathy or thyromegaly Cardiac: Regular rate and rhythm, no murmurs, normal S1, normal S2 Pulm: Clear to auscultation bilaterally. No wheezes, rhonchi, rales Abd: Nondistended, nontender to palpation, normal bowel sounds Ext: No edema bilateral lower extremities, when I first walked in the patient has a soft splint wrapped in an Mo bandage on the right wrist. Patient is neurovascularly intact distally to this. Patient is stiff after the splint has been removed and the skin is scaly underneath. Labs: See below Imaging: Right wrist x-ray performed on 02/13/2021 was reported to show no change, consider diagnostic CT. Prior CT 12/13/2020 was nondiagnostic due to artifact. CT scan of the right wrist performed on 02/13/2021 without contrast was reported to show healing fractures of the distal radius and ulna. No definite scaphoid fracture Assessment/plan: 70-year-old female presented to the floor from the inpatient mental health unit for discharge planning. 1. Hypothyroidism. Continue current treatment. 2. Seizure disorder. Continue Keppra and Depakote. 3. Various psychotic disorders. Continue her current antipsychotic regimen. 4. Hypertension. Continue current dose of amlodipine. 5. Right wrist fracture. Patient fractured her wrist and was initially splinted on 12/13/[address] Summers. Patient was reevaluated on 01/10/2021 Dr. Summers recommended keeping the patient in splint for another 4 weeks. I repeated the x-rays and did a CT scan and reached out to Dr. Rodríguez who is the [employer] orthopedic surgeon today, 02/13/2021, who recommended keeping patient out of the splint and begin gentle range of motion exercises with physical therapy. This order has been placed. We will continue to monitor the patient's pr ogression. DVT Prophylaxis: Teds and ambulation Disposition: Pending case management with assisted living facility. CODE STATUS: I went in and spoke with patient about CODE STATUS. A MOLST form was filled out for DO NOT RESUSCITATE and DO NOT INTUBATE. Brittney Goldman RN was present throughout the conversation. Patient expressed understanding that if her heart were to stop beating and we do not recess attempt resuscitation that she would and states that this is what she would want. MOLST form has been filled out and signed. CODE STATUS has been entered into the computer. VS,Fishbone, I+O VS, Fishbone, I+O Vital Signs Date Time Temp Pulse Resp B/P (MAP) Pulse Ox O2 Delivery O2 Flow Rate FiO2 02/13/21 09:00 73 119/93 02/13/21 06:00 97.2 18 95 Room Air I&O- Last 24 Hours up to 6 AM 02/13/21 06:00 Intake Total 0 ml Balance 0 ml GERBER SNYDER DO Feb 13, 2021 14:52
--- NOTE | 2021-02-13 15:14 | REP ---
INDICATION: wrist fracture. COMPARISON: Prior radiographs, most recently today. TECHNIQUE: Axial CT performed with sagittal and coronal reconstruction images. Images are obtained with the wrist overlying the abdomen. Adjacent structures cause streak artifact. FINDINGS: Healing fracture of the distal radius is noted, well aligned. There is also a healing fracture of the ulnar styloid. There is no definite fracture of the scaphoid. There is no dislocation. IMPRESSION: Healing fractures of the distal radius and ulna. No definite scaphoid fracture. <Electronically signed by Mamadou Jett > 02/13/21 [id number]
[2021-02-13] MEDS: haloperidoL 5 MG TAB PO SCH (20:42)
[2021-02-13] MEDS: QUEtiapine FUMARATE 200 MG TAB PO SCH (20:42)
[2021-02-14 06:00] VITALS: BP 110/55
[2021-02-14] MEDS: LEVOTHYROXINE 112MCG TABLET (0.112MG) PO SCH (06:01)
[2021-02-14 09:00] VITALS: BP 113/60
[2021-02-14] MEDS: amLODIPine 5 MG TAB PO SCH (09:00)
[2021-02-14] MEDS: DIVALPROEX 500 MG TAB PO SCH ×2 (10:01→16:10)
[2021-02-14] MEDS: NYSTATIN 100,000 UNITS/GM TOPICAL PWD 15 GM TOP SCH ×2 (10:01→20:26)
[2021-02-14] MEDS: PANTOPRAZOLE 40MG TAB (PROTONIX) PO SCH (10:01)
[2021-02-14] MEDS: BENZTROPINE 1 MG TAB PO SCH ×2 (10:02→20:26)
[2021-02-14] MEDS: levETIRAcetam 250MG TABLET (KEPPRA) PO SCH ×2 (10:02→20:26)
[2021-02-14] MEDS: haloperidoL 5 MG TAB PO SCH (20:26)
[2021-02-14] MEDS: QUEtiapine FUMARATE 200 MG TAB PO SCH (20:26)
[2021-02-15] MEDS: LEVOTHYROXINE 112MCG TABLET (0.112MG) PO SCH (05:58)
[2021-02-15 06:00] VITALS: BP 105/57
[2021-02-15] MEDS: amLODIPine 5 MG TAB PO SCH (09:00)
[2021-02-15] MEDS: NYSTATIN 100,000 UNITS/GM TOPICAL PWD 15 GM TOP SCH ×2 (09:08→20:22)
[2021-02-15] MEDS: DIVALPROEX 500 MG TAB PO SCH ×2 (09:08→16:15)
[2021-02-15] MEDS: BENZTROPINE 1 MG TAB PO SCH ×2 (09:09→20:21)
[2021-02-15] MEDS: PANTOPRAZOLE 40MG TAB (PROTONIX) PO SCH (09:09)
[2021-02-15] MEDS: levETIRAcetam 250MG TABLET (KEPPRA) PO SCH ×2 (09:09→20:21)
[2021-02-15] MEDS ORDERED: COLA100C5 PO (13:36)
[2021-02-15] MEDS ORDERED: MOM30SS2 PO (13:36)
[2021-02-15] MEDS ORDERED: DEPA1TAB3 PO (13:36)
[2021-02-15] MEDS ORDERED: PANT40TA29 PO (13:36)
[2021-02-15] MEDS ORDERED: NYST10006 TOP (13:36)
[2021-02-15] MEDS ORDERED: AMLO1TAB24 PO (13:36)
[2021-02-15] MEDS ORDERED: LEVO100T5 PO (13:36)
[2021-02-15] MEDS ORDERED: TRAZ-252 PO (13:36)
[2021-02-15] MEDS ORDERED: QUET200T2 PO (13:36)
[2021-02-15] MEDS ORDERED: BENZ-52 PO (13:36)
[2021-02-15] MEDS ORDERED: HALO5TA PO (13:36)
[2021-02-15] MEDS ORDERED: ACET1TAB55 PO (13:36)
[2021-02-15] MEDS ORDERED: KEPP250T5 PO (13:36)
[2021-02-15] MEDS ORDERED: RISP37INJ IM (13:36)
[2021-02-15] MEDS ORDERED: MIRA1POW3 PO (13:36)
[2021-02-15] MEDS ORDERED: MYLASSUD PO (13:36)
--- NOTE | 2021-02-15 14:26 | DS.PDOC ---
Discharge Summary General Date of Admission Jan 17, 2021 at 17:46 Date of Discharge 02/16/2021 Attending Physician: GERBER SNYDER DO Discharge Summary PROCEDURES PERFORMED DURING STAY: None. ADMITTING DIAGNOSES: 1. Hypothyroidism. 2. Seizure disorder 3. Various psychotic disorders 4. Hypertension 5. Right wrist fracture DISCHARGE DIAGNOSES: 1. Hypothyroidism. 2. Seizure disorder 3. Various psychotic disorders 4. Hypertension 5. Right wrist fracture COMPLICATIONS/CHIEF COMPLAINT: ALC. HISTORY OF PRESENT ILLNESS: Patient is a 70-year-old female who was admitted to [facility] for further care and placement issues. Patient initially presented to the emergency department in October 2020 after possible intentional overdose. Patient was discharged from the hospital and then sent to the inpatient mental health unit for about a 2-month stay before her psychiatric issues had been resolved however, the patient was unable to be placed and have a safe discharge the patient was placed back into the hospital for further monitoring until she was able to have placement. HOSPITAL COURSE: Patient initially presented in October and she was worked up for altered mental status was negative for infection. Patient continued to be agitated. Psychiatry evaluated the patient and stated the patient would benefit from [facility] stay. Patient was admitted to the inpatient mental health unit on 11/11/2020. Patient stayed in the inpatient mental health unit and had a fall on December 12, 2020 and was complaining of wrist pain. Patient had x-rays which showed a possible fracture. Patient was unable to cooperate for CT scan. Orthopedic surgery saw the patient and put a soft cast in. Patient remained in the inpatient mental health unit until 01/18/2021 when the patient was discharged to the medical floor. Patient was seen in the inpatient mental health unit again reevaluated for the right wrist fracture who recommended keeping her in soft cast and reevaluate in 4 weeks. Patient was seen on 02/13/2021 and evaluated with x-rays and a CT scan. CT scan showed that the patient had healing distal radial and ulnar fractures but no definitive fracture of any of the carpal bones. I spoke with orthopedic surgery who recommended doing gentle range of motion exercises which had been ordered with PT. Patient was deemed ready for discharge to an assisted living facility in [place], [place]. Patient had a MOLST form filled out which I went through with the patient. This has been signed for DO NOT RESUSCITATE/DO NOT INTUBATE. Patient needed her medic ations and her for the walker sent on 02/13/2021 and has a curing pickling packer in the morning set up for 02/16/2021. Patient will be discharged from the hospital 02/16/2021. For more information regarding the patient's initial hospital stay and her inpatient mental health hospital stay, please refer to the discharge summaries for those hospitalizations. DISCHARGE MEDICATIONS: Please see below. ALLERGIES: Please see below. PHYSICAL EXAMINATION ON DISCHARGE: VITAL SIGNS: Please see below. General: Alert and oriented female patient who was sitting in the bedside chair when I walked in eating lunch. Patient not appear to be in any acute distress. HEENT: Normocephalic, atraumatic, moist mucous membranes. Neck: No lymphadenopathy or thyromegaly Cardiac: Regular rate and rhythm, no murmurs, normal S1, normal S2 Pulm: Clear to auscultation bilaterally. No wheezes, rhonchi, rales Abd: Nondistended, nontender to palpation, normal bowel sounds Ext: No edema bilateral lower extremities. Mild swelling without erythema or ecchymosis overlying the right wrist with some dry skin overlying. Patient does have minimal range of motion but is able to move her wrist. LABORATORY DATA: Please see below. IMAGING: Right wrist x-ray performed on 02/13/2021 was reported to show no change. Consider diagnostic CT. Prior CT 12/13/2020 was nondiagnostic due to artifact. CT of the right wrist performed on 02/13/2021 without contrast was reported to show healing fracture of the distal radius and ulna. No definite scaphoid fracture. PROGNOSIS: Good ACTIVITY: As tolerated. DIET: Cardiacdiet DISCHARGE PLAN: Discharge to [facility] assisted living in [place], [place] DISPOSITION: . DISCHARGE INSTRUCTIONS: 1. Follow-up with the provider at the's is living facility in [place], [place]. ITEMS TO FOLLOWUP ON ON OUTPATIENT: 1. Follow-up on TSH. DISCHARGE CONDITION: Stable. TIME SPENT ON DISCHARGE: 25 minutes. Vital Signs/I&Os Vital Signs Date Time Temp Pulse Resp B/P (MAP) Pulse Ox O2 Delivery O2 Flow Rate FiO2 02/15/21 06:00 97.4 72 18 105/57 (73) 97 Room Air I&O- Last 24 Hours up to 6 AM 02/15/21 06:00 Intake Total 2870 ml Balance 2870 ml Laboratory Data Labs 24H Laboratory Tests 2 02/15/21 11:30: Coronavirus (COVID-19)(PCR) NEGATIVE Discharge Medications Scheduled Amlodipine Besylate (Amlodipine Besylate) 5 Mg Tablet, 5 MG PO DAILY for BP Benztropine Mesylate (Benztropine Mesylate) 1 Mg Tablet, 1 MG PO BID for eps Divalproex Sodium (Depakote) 500 Mg Tablet.dr, 500 MG PO BID@0800,1600 for schizoaffective Docusate Sodium (Colace) 100 Mg Capsule, 100 MG PO BID for constipation Haloperidol (Haloperidol) 5 Mg Tablet, 5 MG PO QHS for schizoaffactive disorder Levetiracetam (Keppra) 250 Mg Tablet, 500 MG PO BID for seizures Levothyroxine Sodium (Levothyroxine Sodium) 100 Mcg Tablet, 100 MCG PO DAILY@06 for hypothyroid Pantoprazole Sodium (Pantoprazole Sodium) 40 Mg Tablet.dr, 40 MG PO DAILY for gerd Polyethylene Glycol 3350 (Miralax) 17 Gm Powd.pack, 1 PKT PO DAILY for constipation Quetiapine Fumarate (Quetiapine Fumarate) 200 Mg Tablet, 200 MG PO QHS for schizoaffective Risperidone (Risperdal Consta) 37.5 Mg/2 Ml Syringe, 37.5 MG IM Q14D@09 for schizoaffective Scheduled PRN Acetaminophen (Acetaminophen) 325 Mg Tablet, 650 MG PO Q6HP PRN for HEADACHE or MILD DISCOMFORT Aluminum/Magnesium/Simeth (Mag-Al Plus Suspension) 30 Ml Oral.susp, 30 ML PO Q4HP PRN for HEARTBURN/INDIGESTION Magnesium Hydroxide (Milk of Magnesia) 400 Mg/5 Ml Oral.susp, 30 ML PO DAILYPRN PRN for CONSTIPATION Nystatin (Nystop) 60 Gm Powder, 1 DOSE TOP BIDP PRN for RASH Trazodone HCl (Trazodone HCl) 50 Mg Tablet, 50 MG PO QHSP PRN for INSOMNIA Allergies Coded Allergies: Sulfa (Sulfonamide Antibiotics) (Verified Allergy, Unknown, 01/21/19) aspirin (Verified Allergy, Unknown, 01/21/19) GERBER SNYDER DO Feb 15, 2021 14:26
[2021-02-15] MEDS ORDERED: FLUBLOK(EGG FREE)(QUAD)INFLUENZA VACC 0.5ML SYRINGE 18YRS & OLDER IM ONE (16:00)
[2021-02-15] MEDS: QUEtiapine FUMARATE 200 MG TAB PO SCH (20:21)
[2021-02-15] MEDS: haloperidoL 5 MG TAB PO SCH (20:22)
[2021-02-16] MEDS: LEVOTHYROXINE 112MCG TABLET (0.112MG) PO SCH (05:35)
[2021-02-16 06:00] VITALS: BP 110/62
[2021-02-16] MEDS: amLODIPine 5 MG TAB PO SCH (09:00)
[2021-02-16] MEDS: PANTOPRAZOLE 40MG TAB (PROTONIX) PO SCH (09:31)
[2021-02-16] MEDS: levETIRAcetam 250MG TABLET (KEPPRA) PO SCH (09:31)
[2021-02-16] MEDS: BENZTROPINE 1 MG TAB PO SCH (09:31)
[2021-02-16] MEDS: NYSTATIN 100,000 UNITS/GM TOPICAL PWD 15 GM TOP SCH (09:31)
[2021-02-16] MEDS: DIVALPROEX 500 MG TAB PO SCH (09:31)
[2021-02-16] MEDS: risperiDONE LONG-ACTING 37.5 MG/2 ML INJ (J2794 PER 0.5MG) IM SCH (10:29)
== END 2021-02-16 11:00 | DRG 563 ==
LOC: M MSPAV 17:46
PROVIDERS: ADMIT Internal Medicine; ATTEND Family Medicine
DX: S52.501A Unspecified fracture of the lower end of right radius, initial encounter for closed fracture (principal); Z75.1 Person awaiting admission to adequate facility elsewhere; E03.9 Hypothyroidism, unspecified; F31.9 Bipolar disorder, unspecified; K21.9 Gastro-esophageal reflux disease without esophagitis; F25.9 Schizoaffective disorder, unspecified; E78.5 Hyperlipidemia, unspecified; R42 Dizziness and giddiness; F41.9 Anxiety disorder, unspecified; G40.909 Epilepsy, unspecified, not intractable, without status epilepticus; G43.909 Migraine, unspecified, not intractable, without status migrainosus; I10 Essential (primary) hypertension; M81.0 Age-related osteoporosis without current pathological fracture; M19.90 Unspecified osteoarthritis, unspecified site; M54.5 Low back pain; Z90.49 Acquired absence of other specified parts of digestive tract; Z79.899 Other long term (current) drug therapy; Z20.822 Contact with and (suspected) exposure to COVID-19; Z66 Do not resuscitate; W18.30XA Fall on same level, unspecified, initial encounter; Y92.230 Patient room in hospital as the place of occurrence of the external cause